=== PATIENT | male | born 1940 | race Caucasian/White ===

== ENCOUNTER → 2017-04-21 16:01 | Outpatient (CLI) | payer MEDICARE, OTHER, SELFPAY | PROVIDERS: Family Provider Family Medicine; PCP Family Medicine; Visit Provider Internal Medicine Hematology & Oncology | DX: C90.02 Multiple myeloma in relapse (principal) | CPT/HCPCS: 86850; 86900 ==

== ENCOUNTER → 2017-08-17 10:51 | Outpatient (CLI) | payer MEDICARE, OTHER, SELFPAY ==
--- NOTE | 2017-08-17 10:55 | MRI_ITS ---
STUDY: MRI LUMBAR SPINE WITHOUT CONTRAST REASON FOR EXAM: Male, 77 years old. Low back pain and right hip pain x6 years. History of multiple myeloma. TECHNIQUE: Standardized fat and water weighted pulse sequences were obtained in the sagittal and axial planes. COMPARISON: Lumbar spine radiographs 06/10/2015. FINDINGS: T11-T12: (Sagittal only). Normal T11 inferior endplate. Mild anterior wedging of T12 superior endplate without bone edema is presumably secondary to remote injury. This is unchanged when compared to plain film radiographs of 06/10/2015. Anterior degenerative vacuum phenomena. Marked loss of disc hydration. No ventral is a ventral defect. Normal central canal and bilateral intervertebral neural foramina. T12-L1: (Sagittal only). Anterior marginal spurs. Pronounced disc space narrowing. Marked loss of disc hydration. Minimal degenerative retrolisthesis of T12 on L1. Normal central canal and bilateral intervertebral neural foramina. Round T12 benign focal fatty infiltration. Normal lumbar lordosis. There is no substantial scoliosis. Normal conus medullaris that terminates at the mid L1 vertebral body level. L1-2: Prominent anterior marginal spurs. Nearly grade 1 degenerative retrolisthesis of L1 on L2. Pronounced disc space height narrowing. Normal central canal and bilateral lateral recesses. Mild asymmetric degenerative facet arthropathy. Moderate stenosis of the right intervertebral neural foramen. Normal left intervertebral neural foramen. L2-3: Anterior marginal spurs. Bridging right lateral marginal spurs. Moderately pronounced right-sided disc space height narrowing. Schmorl's node in the posterior aspect of the L2 inferior endplate. Normal L2 superior endplate. Minimal asymmetric degenerative retrolisthesis of L2 on L3. Mild central canal stenosis with an AP canal diameter of 9 mm. Right posterior ligamentum flavum hypertrophy. Mild to moderate asymmetric degenerative facet arthropathy. Normal bilateral intervertebral neural foramina. L3-4: Small anterior marginal spurs. Minimal left lateral subluxation of L3 on L4. Pronounced right-sided disc space height narrowing. Schmorl's node in the central aspect of the L3 inferior endplate. Normal L4 superior endplate. Small posterior midline cephalad disc protrusion. Mild to moderate asymmetric central canal stenosis. The AP canal diameter is 8 mm. Bilateral posterior ligamenta flava hypertrophy. Mild to moderate right degenerative facet hypertrophy. Mild left degenerative facet arthropathy. Mild stenosis of the left intervertebral neural foramen. Normal right intervertebral neural foramen. L4-5: Pronounced disc space height narrowing. Minimal right lateral subluxation of L4 on L5. Prominent left lateral marginal spurs. Modic type II degenerative vertebral marrow fatty changes underneath the vertebral endplates. Mild asymmetric central canal stenosis. The AP canal diameter is 10 mm. Left posterior ligamentum flavum pertinently. Moderate left degenerative facet hypertrophy. Mild right degenerative facet arthropathy. Moderately pronounced stenosis of the left intervertebral neural foramen with osteophytic impingement of the left L4 nerve (series 2, image 5). L5-S1: Deep and prominent Schmorl's node in the central aspect of the S1 superior endplate. Modic type II degenerative vertebral marrow fatty change underneath the L5 inferior endplate. Moderate disc space height narrowing. Small posterior midline disc protrusion. Normal central canal. Mild asymmetric degenerative facet arthropathy. Moderate stenosis of the bilateral intervertebral neural foramina. Normal visualized sacral ala. Normal visualized paraspinous soft tissue structures. MRI/Spine Lumbar (Routine) IMPRESSION: 1. No MRI evidence of lumbar extruded disc fragment. 2. Pronounced L4-L5 disc space height narrowing, minimal right lateral subluxation of L4 on L5, mild asymmetric central canal stenosis and moderately pronounced stenosis of the left intervertebral neural foramen with osteophytic impingement of the left L4 nerve. 3. Deep and prominent Schmorl's node in the central aspect of the S1 superior endplate with small posterior L5-S1 disc protrusion and moderate stenosis of the bilateral intervertebral neural foramina. 4. Pronounced L3-L4 disc space height narrowing with minimal left lateral subluxation of L3 on L4, small posterior midline cephalad disc protrusion, mild to moderate asymmetric central canal stenosis and mild stenosis of the left intervertebral neural foramen. 5. Mild central canal stenosis at L2-L3 disc level with moderately pronounced right-sided disc space height narrowing and minimal asymmetric degenerative retrolisthesis of L2 on L3. 6. Nearly grade 1 degenerative retrolisthesis of L1 on L2 with pronounced L1-L2 disc space height narrowing and moderate stenosis of the right intervertebral neural foramen. Electronically Signed: Herson Landrum MD at 13:09 EDT , Service support ,
== END ==
PROVIDERS: Family Provider Family Medicine; PCP Family Medicine; Visit Provider Anesthesiology Pain Medicine
DX: M54.9 Dorsalgia, unspecified (principal)
CPT/HCPCS: 72148

== ENCOUNTER 2017-10-06 08:00 | Outpatient (RCR) | payer MEDICARE, OTHER, SELFPAY ==
--- NOTE | 2017-09-03 11:00 | HP.PTEVAL_ITS ---
Patient's Visit Information JAIME Rosi AGGARWAL is a 77 year old M referred to Physical Therapy by Harsh Terry with a diagnosis of LBP. Date of Evaluation: 09/03/17 Physical Therapist: Bryce Daniels PT, - Visit Plan Frequency: 2-3x /Week Duration: 4-6 Weeks Plan: postural edu, core stab ex's, LE strengthining, nustep, and HEP - Subjective Subjective: Pt reports he has had a chronic Hx of LBP. Pt reports he has been getting back injections from Dr. Maki over the years which really helped up until the past 6 months. Pt reports the injections are not helping anymore and he is in a lot of pain. Pt notes he does have a Hx of a fall that also really hurt his back. Pt notes he had an MRI 2 weeks ago, which revealed deg changes throughout LB. Prolonged ambulation and standing increases his pain. Sleeping and sitting helps to decrease his pain. No sleep diff at this time. 1/10 at rest , 7/10 at worst (with walking a lot) - Pain LBP Pain Intensity (Out of 10): 1 Pain Intensity Range: 7 - Objective Neuro: B LE sensation is WNL to light touch. MMT: B LE's are grossly 4+/5 throughout. ROM: Pt is moderately limited in all planes. Gait: Pt is able to ambulate greater than 1000 ft without limitation - Goals Goal 1:: Decrease LBP x 50% to aid with walking Goal Time Frame: 4-6 Weeks Goal 2:: Increase B LE strength x 1 grade to aid with stair negotiation Goal Time Frame: 4-6 Weeks Goal 3:: I with HEP Goal Time Frame: 4-6 Weeks - Rehabilitation Potential Physical Therapy Diagnosis: Pt has LBP, LE weakness, and limited ROM in L/S secondary to degenerative changes in LB Rehabilitation Potential: Good - Anticipated Interventions Patient/Client Instruction: Educate patient on: Condition, Plan of Care For the Purpose of:: To improve self management Therapeutic Exercise to Include: Strength training, Endurance training, Body mechanics, Postural training, Active ROM, Dynamic Lumbar Stabilization For the Purpose of:: To decrease pain, To improve muscle performance and motor function, To increase tolerance to activity/condition/position, To improve performance and independence with ADL's Cryotherapy (ice pack, ice massage): Yes Thermo therapy (hot pack): Yes For the Purpose of:: To decrease pain Thank you for the opportunity to evaluate your patient. For Medicare and Medicare HMO plans, please review the plan of care and approve it. It will need to be FAXED BACK to us at [phone] for Medicare purposes. Please let me know if there are questions or concerns regarding this plan of care. Physician Signature: Date:
--- NOTE | 2017-10-06 08:50 | HP.PTDCSUM ---
HP - PT D/C Summary It has been my pleasure to treat ADDISON AGGARWAL under orders from Harsh Terry, for the diagnosis of LBP for a total of 11 visit(s). Discharge Date: Please see the following information for a summary of their discharge status. - Subjective Subjective: Pt reports he felt good after last Rx, but sore for the past 2 days - Pain LBP Pain Intensity (Out of 10): 7 - Overall Improvement % Improvement: 30 - Objective Objective/Function: Pt entered the clinic with 7/10 LBP, decreased to 3/10 with HEP. B LE strength now 5/5. Pt is I with HEP. Rx goals achieved with exception to decreasing LBP x 50% - Goals Goal 1:: Decrease LBP x 50% to aid with walking Goal Progress: Progressing Goal 2:: Increase B LE strength x 1 grade to aid with stair negotiation Goal Progress: Goal Met Goal 3:: I with HEP Goal Progress: Goal Met - Plan Plan: Discharge - D/C Information If there are questions or concerns regarding this patient's physical therapy, please feel free to call me at [phone]. Thank you for the referral of this patient. Sincerely, Bryce Daniels, PT,
== END 2017-10-06 10:34 | disposition home or self-care (01) ==
LOC: PT 08:00
PROVIDERS: Family Provider Family Medicine; PCP Family Medicine; Visit Provider Internal Medicine Hematology & Oncology
DX: C90.02 Multiple myeloma in relapse (principal); M54.5 Low back pain; G89.29 Other chronic pain
CPT/HCPCS: 97110; 97161; 97530

== ENCOUNTER → 2017-10-26 13:46 | Outpatient (CLI) | payer MEDICARE, OTHER, SELFPAY | PROVIDERS: Family Provider Family Medicine; PCP Family Medicine; Visit Provider Orthopaedic Surgery | DX: M54.5 Low back pain (principal) | CPT/HCPCS: 72110 ==

== ENCOUNTER → 2018-01-27 10:27 | Outpatient (CLI) | payer MEDICARE, OTHER, SELFPAY ==
[2016-07-15 08:19] VITALS: BMI 31.8
--- NOTE | 2018-01-27 10:31 | RAD_ITS ---
STUDY: X-RAY - LEFT KNEE REASON FOR EXAM: Pain. TECHNIQUE: 2 view(s) of the knee. COMPARISON: None. FINDINGS: Normal visualized distal femur. Normal visualized proximal tibia and fibula. Normal proximal tibiofibular articulation. There is a surface osteophyte of the medial femoral condyle and mild joint space narrowing of the medial femorotibial compartment. There are marginal osteophytes and severe joint space narrowing of the lateral femorotibial compartment. There are marginal osteophytes and joint space narrowing of the patellofemoral articulation. There is a small joint effusion. There is vascular calcification. RAD/Knee 1 or 2 Views IMPRESSION: Tricompartmental arthrosis. Small joint effusion. Electronically Signed: Freeman Rogel MD at 14:50 EST Tel , Service support ,
--- OUTSIDE RECORDS SUMMARY | 2018-03-24 12:32 | XMS RPT_ITS ---
:1940 Author Organization OHIP Care Team Providers Name Role Phone ELLE LEGER Referring Unavailable MASCI, HARSH Aranda Referring Unavailable ELDERBROELLE WILL Referring Unavailable MASCI, HARSH Aranda Referring Unavailable MASCI, HARSH Aranda Attending Unavailable MASCI, HARSH Aranda Referring Unavailable MASCI, HARSH Aranda Referring Unavailable ELDERBROELLE WILL Referring Unavailable MASCI, HARSH Aranda Referring Unavailable MASCI, HARSH Aranda Referring Unavailable MASCI, HARSH Aranda Referring Unavailable ELDERBROELLE WILL Referring Unavailable MASCI, HARSH Aranda Referring Unavailable MASCI, HARSH Aranda Referring Unavailable MASCI, HARSH Aranda Referring Unavailable MASCI, HARSH Aranda Referring Unavailable MASCI, HARSH Aranda Referring Unavailable ELDERBROCKELLE Referring Unavailable MASCI, HARSH Aranda Referring Unavailable MASCI, HARSH Aranda Attending Unavailable MASCI, HARSH Aranda Referring Unavailable MASCI, HARSH Aranda Referring Unavailable MASCI, HARSH Aranda Referring Unavailable MASCI, HARSH Aranda Referring Unavailable ELDERBROELLE WILL Referring Unavailable MASCI, HARSH Aranda Referring Unavailable MASCI, HARSH Aranda Referring Unavailable MASCI, HARSH A Referring Unavailable MASCI, HARSH A Referring Unavailable MASCI, HARSH A Referring Unavailable ELDERBROCK, ELLE Gold Referring Unavailable MASCI, HARSH A Referring Unavailable MASCI, HARSH A Referring Unavailable MASCI, HARSH A Referring Unavailable MASCI, HARSH A Referring Unavailable MASCI, HARSH A Attending Unavailable MASCI, HARSH A Referring Unavailable MASCI, HARSH A Referring Unavailable MASCI, HARSH A Referring Unavailable ELDERBROCK, ELLE Gold Referring Unavailable MASCI, HARSH A Referring Unavailable MASCI, HARSH A Referring Unavailable MASCI, HARSH A Attending Unavailable MASCI, HARSH A Referring Unavailable MASCI, HARSH A Referring Unavailable MASCI, HARSH A Referring Unavailable MASCI, HARSH A Referring Unavailable MASCI, HARSH A Referring Unavailable MASCI, HARSH Aranda Attending Unavailable MASCI, HARSH A Referring Unavailable MASCI, HARSH A Referring Unavailable MASCI, HARSH A Referring Unavailable MASCI, HARSH A Referring Unavailable MASCI, HARSH A Referring Unavailable MASCI, HARSH Aranda Attending Unavailable MASCI, HARSH Aranda Referring Unavailable ELDERBROCK, ELLE Gold Referring Unavailable MASCI, HARSH Aranda Referring Unavailable DEMAR, MARY Referring Unavailable MASCI, HARSH A Referring Unavailable MASCI, HARSH A Referring Unavailable ELDERBROCK, ELLE Gold Referring Unavailable MASCI, HARSH Rosi Referring Unavailable ELDERBROCK, ELLE Gold Referring Unavailable EMMA, CORNELL (PHILIP) Attending Unavailable ELDERBROCK, ELLE Gold Referring Unavailable MASCI, HARSH A Referring Unavailable MASCI, HARSH A Attending Unavailable MASCI, HARSH A Referring Unavailable MASCI, HARSH A Referring Unavailable MASCI, HARSH Rosi Referring Unavailable ELDERBROCK, ELLE Gold Referring Unavailable MASCI, HARSH Aranda Referring Unavailable MASCI, HARSH Aranda Attending Unavailable MASCI, HARSH Aranda Referring Unavailable ELDERBROCK, ELLE Gold Referring Unavailable MASCI, HARSH A Referring Unavailable ELDERBROCK, ELLE Gold Referring Unavailable MASCI, HARSH A Referring Unavailable MASCI, HARSH Rosi Attending Unavailable MASCI, HARSH Rosi Referring Unavailable MASCI, HARSH Rosi Referring Unavailable ELDERBROCK, ELLE Gold Referring Unavailable MASCI, HARSH Aranda Referring Unavailable MASCI, HARSH Aranda Attending Unavailable MASCI, HARSH Aranda Referring Unavailable MASCI, HARSH Aranda Referring Unavailable Demar, Mary Attending Unavailable Elderbrock, Elle Primary Care Unavailable Demar, Mary Referring Unavailable Basali, Fay Attending Unavailable Basali, Fay Referring Unavailable Elderbrock, Elle Primary Care Unavailable Masci, Harsh Attending Unavailable Masci, Harsh Referring Unavailable Elderbrock, Elle Primary Care Unavailable MendozaChante Attending Unavailable Elderbrock, Elle Referring Unavailable Africa, Elle Primary Care Unavailable Chante Mendoza Attending Unavailable Chante Mendoza Referring Unavailable Africa, Elle Primary Care Unavailable Fay Maki Attending Unavailable Fay Maki Referring Unavailable Elderedouard, Elle Primary Care Unavailable PROBLEMS PROBLEMS DATE TYPE CONDITION / CODE ATTENDING STATUS SOURCE 11/27/2017 Active Encounter for NA Active [facility] immunization / [facility] Z23(ICD-10) [facility] Repository 10/26/2017 Unknown M54.5 - Low back Chante Mendoza Active [facility] pain / [facility]54.5(ICD-10) [facility] 10/06/2017 Unknown C90.02 - Multiple Harsh Terry Active [facility] myeloma in relapse / [facility] C90.02(ICD-10) [facility] Repository 07/17/2009 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 Active [facility] use of [facility] anticoagulants / [facility] Z79.01(ICD-10) Repository 08/17/2017 Unknown M54.9 - DorsalgiaGlynn Ayman Active [facility] unspecified / [facility] M54.9(ICD-10) Hospital Repository 07/17/2009 Active Unspecified atrial NA Active [facility] fibrillation / [facility] I48.91(ICD-10) [facility] Repository 07/17/2009 Active Pure NA Active [facility] hypercholesterolemia [facility] , unspecified / [facility] E78.00(ICD-10) Repository 04/08/2017 Active Unknown / NA Active [facility] UNK(Unknown) [facility] Repository 10/30/2014 Active Multiple myeloma in NA Active [facility] relapse / [facility] C90.02(ICD-10) [facility] Repository PROCEDURES PROCEDURES No Procedure Records FoundRESULTS RESULTS CNOVSP Observed: 02/10/2018 Status: COMPLETED Source: [place] 8:50 AM [facility] REPOSITORY Visit (SP) Office ([facility]) GALE VALDEZ ([id number]) [address] [facility] Date Time Provider Department 02/10/18 8:50 AM HARSH TERRY During your visit today, we recorded the following information about you: Temperature Pulse Blood pressure Weight 98.7 degrees 74/minute 122/75 103.9 kg Harsh Rosi DO [place] 02/10/2018 9:07 AM Signed Diagnosis: 1) [place] light chain only multiple myeloma. HPI: The patient is a 77 yo male who was evaluated for pain in the right shoulder in April of 2011. Initially he had pain across the top of the shoulder. The onset was following lifting some luggage when he was on a cruise. He underwent an injection which didn't help the pain. He also had plain films which didn't show any significant bony pathology. He was referred to an orthopedic surgeon who ordered an MRI of the shoulder on 06/29/11. The study revealed multiple metastatic deposits throughout the shoulder girdle, involving the visualized humerus, scapula and clavicle. There was a large expansile lesion within the scapula extending into the periscapular soft tissues along the deep and superficial surface there was also a large expansile lesion of the distal clavicle. Work up has revealed kappa light chain multiple myeloma. Previous therapy: 1) VMP x3 cycles. Therapy was held due to worsening fatigue and neuropathy. He also had significant difficulty with constipation throughout his treatment course. Laboratory analysis revealed marked reduction in serum kappa light chain. 2) Velcade/dex (day 1, 8 and 15 every 28 days). Began 11/06/2014. Revlimid 15 mg days 1-21 added 06/2015. PD 04/2017. Current therapy: 1) Daratumumab/Pomalyst/dex. Presents for ongoing oncologic management. Interim history: He continues to tolerate treatment very well with no symptomatic or noticeable side effect. Energy level is doing well. He had symptoms of URI over gi including nasal congestion and rhinorrhea. The symptoms have subsided. He also had some diarrhea associated with those symptoms but that too has resolved. He gets some relief of the back pain from his TENS unit but he had epidural injections done last week and he said those of helped significantly. He's been more mobile and getting more done the last week. Peripheral neuropathy is stable. Appetite is normal. PMH, medications and allergies as below personally reviewed by me today. Any changes documented in appropriate section. ROS: Constitutional: Denies episodes of fever and night sweats. Neuro: Denies METZGER, vertigo, dizziness and imbalance. HEENT: No recent change in voice, vision or hearing. Resp: See above. CVS: Denies exertional chest pain, PND, orthopnea and LE edema. GI: Denies dysgeusia. Denies symptoms of stomatitis. Denies dysphagia and odynophagia. Denies reflux, n/v, change in bowel habits and abdominal pain. : Denies dysuria or gross hematuria. No symptoms of bladder outlet obstruction. Endo: Denies hot flashes. Denies polyuria and polydipsia. Denies heat and cold intolerance. Musculoskeletal: See above. Derm: Denies rash. Denies jaundice and diffuse pruritis. Heme: Denies unusual bleeding and unexplained bruising. Psych: Normal mood. PHYSICAL EXAM: Vitals: Blood pressure 122/75, pulse 74, temperature 37.1 ?C (98.7 ?F), temperature source Oral, weight 103.9 kg (229 lb). Well-appearing and in no acute distress. EYES: Sclerae are anicteric bilaterally. NECK: Supple. LYMPHATIC: There is no palpable cervical, supraclavicular adenopathy. RESPIRATORY: Normal air entry. CVS: Regular rhythm. ABDOMEN: The abdomen is nondistended. There is no organomegaly. No tenderness. Extremities: Trace edema both ankles/distal lower extremities-stable. SKIN: No rash. 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 No focal motor weakness. LABS: ASSESSMENT/PLAN: 1) Multiple myeloma. Light chain only disease. Relapsed with increase in serum kappa light chain and very small amount kappa in 24 hour urine. -Tolerating Pomalyst and daratumumab very well. No untoward side effect. -[place] light chain fluctuates, but overall stable and ratio to lambda potentially trending lower. -The measurable monoclonal protein on serum electrophoresis is most likely the daratumumab. It appeared after he started treatment. Not clear however if this is contributing to the increasing kappa light chain. Therefore discussed with him obtaining a PET scan for more thorough evaluation. He does have pain that has been getting worse, particularly the low back pain. He is agreeable. Plan: -Continue daratumumab monthly. -Continue Pomalyst. -PO dexamethasone 20 mg on days 8 and 15 of each cycle. He will get IV dexamethasone on day 1 monthly when here for Darzalex. -Whole body PET scan. -Continue Zometa every 3 months. -Monthly OV with myeloma lab assessment. 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 Plan: -Continue under CPM. Harsh Terry DO Referring Provider: HARSH TERRY [[id number]] Allergies As of Date: 02/10/2018 Noted Allergy Reaction bandaid [Other] 11/20/2004 NEOSPORIN ([id number]*11/20/2004 14 - Other: See Comments Comments: skin blistering Date Reviewed: 02/10/2018 Reviewed by: Delmis Cassidy - Fully Assessed Reason for Visit: Established Patient [175] Primary Visit Diagnosis:Multiple myeloma in relapse (HCC) [C90.02] Other Visit Diagnoses:Chronic midline low back pain, with sciatica presence unspecified [M54.5, G89.29] Acute pain of left knee [M25.562] Multiple myeloma not having achieved remission (HCC) [C90.00] Order(s):DC PET/CT WHOLE BODY [[id number]] Order #: [id number] FUTURE Follow-up and Disposition History Recorded Prescriptions as of 02/10/2018 Sig: SODIUM CHLORIDE 0.9% FLUSH Start IV as needed for labs o* ACETAMINOPHEN 500 MG TABLET Take 1,000 mg by mouth as nee* AMIODARONE 200 MG TABLET TAKE 1 TABLET EVERY DAY ATORVASTATIN 10 MG TABLET TAKE 1 TABLET EVERY DAY CYCLOBENZAPRINE 10 MG TABLET Take 0.5-1 tablets by mouth t* DEXAMETHASONE 4 MG TABLET Take 5 tablets at once on day* STOOL SOFTENER ORAL Take 1 tablet by mouth once d* LEVOTHYROXINE 50 MCG TABLET Take 1 tablet by mouth once d* POLYETHYLENE GLYCOL 3350 17 G* Take 17 g by mouth once daily* POMALYST 2 MG CAPSULE TAKE 1 CAPSULE BY MOUTH EVERY* * TRAMADOL 50 MG TABLET Take 1-2 tablets every 6 hour* WARFARIN 3 MG TABLET Hold Fri/Sat, resume normal d* Problem List As Of Date 02/10/2018 Noted Resolved Atrial Fibrillation [I48.91] INVALID FOR* More... Encounter for Long-Term (Current) Use of Antico*INVALID FOR* Pure Hypercholesterolemia [E78.00] INVALID FOR* KNEE PAIN - RIGHT [M25.569] INVALID FOR*08/18/2016 GENERAL OSTEOARTHROSIS [M15.9] INVALID FOR* BENIGN NEOPLASM LG BOWEL [D12.6] DIVERTICULOSIS OF COLON W/O BLEED [K57.30] Internal hemorrhoids without mention of complic* 12/16/2011 KNEE JOINT REPLACEMENT STATUS [Z96.659] INVALID FOR* Sleep Apnea [G47.30] INVALID FOR* More... Fracture of lateral malleolus [S82.63XA] INVALID FOR*08/18/2016 More... 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 Vitamin D deficiency [E55.9] INVALID FOR* Esophagitis, unspecified [K20.9] INVALID FOR* Irritated//Inflamed Seborrheic Keratosis [L82.0]INVALID FOR*08/18/2016 Viral wart, unspecified [B07.9] INVALID FOR*08/18/2016 Neoplasm of Uncertain Behavior of skin: R/O Dys*INVALID FOR*08/18/2016 Atypical nevus of face [D22.30] INVALID FOR*08/18/2016 Sebaceous hyperplasia [L73.8] INVALID FOR*08/18/2016 Actinic skin damage [L57.8] INVALID FOR*08/18/2016 Solar lentigo [L81.4] INVALID FOR*08/18/2016 Other seborrheic keratosis [L82.1] INVALID FOR*08/18/2016 Multiple myeloma in relapse (HCC) [C90.02] INVALID FOR* Chronic low back pain [M54.5, G89.29] INVALID FOR* Hypothyroidism, acquired [E03.9] INVALID FOR* Encounter Status:Closed by HARSH TERRY DO on 02/10/18 PROTEIN ELEC,UR RAND Collected: 02/10/2018 Status: F Source: [place] 8:32 AM [facility] REPOSITORY TYPE CODE TESTS RESULT OUT OF REFERENCE UNITS RANGE LAB UTPR 0-20 mg/dL Protein Urine Random 9 LAB UALB % Albumin 29.2 LAB UA1G >0 % Alpha 1 Globulin 6.2 LAB UA2G % Alpha 2 Globulin 23.6 LAB UBEG % Beta Globulin 19.0 LAB UGAG % Gamma Globulin 22.1 LAB UPEINT Interpretation SEE COMMENT Result Comment: An M protein is identified on protein electrophoresis. See separate immunofixation report for characterization of the M protein. LAB UPESTF Staff Reviewed by Review Anatoliy York M.D. ([id number]) Performed By: #### JACEY LENNONA #### [facility] [employer] [address] [address] MONOCLONAL PROT UR Collected: 02/10/2018 Status: F Source: [place] 8:32 AM [facility] REPOSITORY TYPE CODE TESTS RESULT OUT OF RANGE REFERENCE UNITS LAB UMPA No M protein is UMPA Result Abnormal identified. M protein Alert is present. LAB UINTP UMPA Interpretation SEE COMMENT Result Comment: An atypical restricted band is present in the kappa region. The presence of free kappa light chains in the urine is consistent with a kappa-containing monoclonal gammopathy. LAB UMPSTF UMPA Reviewed by Staff Review Anatoliy York M.D. ([id number]) Performed By: #### JACEY LENNONA #### [facility] [employer] [address], [place] [address] PROGRESS Observed: 02/10/2018 Status: COMPLETED Source: [place] 8:22 AM [facility] REPOSITORY HNO ID: [id number] Author: Harsh Terry Service: (none) Author Type: Physician Type: Progress Notes Filed: 02/10/2018 9:07 AM Note Text: Diagnosis: 1) [place] light chain only multiple myeloma. HPI: The patient is a 77 yo male who was evaluated for pain in the right shoulder in April of 2011. Initially he had pain across the top of the shoulder. The onset was following lifting some luggage when he was on a cruise. He underwent an injection which didn't help the pain. He also had plain films which didn't show any significant bony pathology. He was referred to an orthopedic surgeon who ordered an MRI of the shoulder on 06/29/11. The study revealed multiple metastatic deposits throughout the shoulder girdle, involving the visualized humerus, scapula and clavicle. There was a large expansile lesion within the scapula extending into the periscapular soft tissues along the deep and superficial surface there was also a large expansile lesion of the distal clavicle. Work up has revealed kappa light chain multiple myeloma. Previous therapy: 1) VMP x3 cycles. Therapy was held due to worsening fatigue and neuropathy. He also had significant difficulty with constipation throughout his treatment course. Laboratory analysis revealed marked reduction in serum kappa light chain. 2) Velcade/dex (day 1, 8 and 15 every 28 days). Began 11/06/2014. Revlimid 15 mg days 1-21 added 06/2015. PD 04/2017. Current therapy: 1) Daratumumab/Pomalyst/dex. Presents for ongoing oncologic management. Interim history: He continues to tolerate treatment very well with no symptomatic or noticeable side effect. Energy level is doing well. He had symptoms of URI over [place] including nasal congestion and rhinorrhea. The symptoms have subsided. He also had some diarrhea associated with those symptoms but that too has resolved. He gets some relief of the back pain from his TENS unit but he had epidural injections done last week and he said those of helped significantly. He's been more mobile and getting more done the last week. Peripheral neuropathy is stable. Appetite is normal. PMH, medications and allergies as below personally reviewed by me today. Any changes documented in appropriate section. ROS: Constitutional: Denies episodes of fever and night sweats. Neuro: Denies METZGER, vertigo, dizziness and imbalance. HEENT: No recent change in voice, vision or hearing. Resp: See above. CVS: Denies exertional chest pain, PND, orthopnea and LE edema. GI: Denies dysgeusia. Denies symptoms of stomatitis. Denies dysphagia and odynophagia. Denies reflux, n/v, change in bowel habits and abdominal pain. : Denies dysuria or gross hematuria. No symptoms of bladder outlet obstruction. Endo: Denies hot flashes. Denies polyuria and polydipsia. Denies heat and cold intolerance. Musculoskeletal: See above. Derm: Denies rash. Denies jaundice and diffuse pruritis. Heme: Denies unusual bleeding and unexplained bruising. Psych: Normal mood. PHYSICAL EXAM: Vitals: Blood pressure 122/75, pulse 74, temperature 37.1 ?C (98.7 ?F), temperature source Oral, weight 103.9 kg (229 lb). Well-appearing and in no acute distress. EYES: Sclerae are anicteric bilaterally. NECK: Supple. LYMPHATIC: There is no palpable cervical, supraclavicular adenopathy. RESPIRATORY: Normal air entry. CVS: Regular rhythm. ABDOMEN: The abdomen is nondistended. There is no organomegaly. No tenderness. Extremities: Trace edema both ankles/distal lower extremities-stable. SKIN: No rash. 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 No focal motor weakness. LABS: ASSESSMENT/PLAN: 1) Multiple myeloma. Light chain only disease. Relapsed with increase in serum kappa light chain and very small amount kappa in 24 hour urine. -Tolerating Pomalyst and daratumumab very well. No untoward side effect. -[place] light chain fluctuates, but overall stable and ratio to lambda potentially trending lower. -The measurable monoclonal protein on serum electrophoresis is most likely the daratumumab. It appeared after he started treatment. Not clear however if this is contributing to the increasing kappa light chain. Therefore discussed with him obtaining a PET scan for more thorough evaluation. He does have pain that has been getting worse, particularly the low back pain. He is agreeable. Plan: -Continue daratumumab monthly. -Continue Pomalyst. -PO dexamethasone 20 mg on days 8 and 15 of each cycle. He will get IV dexamethasone on day 1 monthly when here for Darzalex. -Whole body PET scan. -Continue Zometa every 3 months. -Monthly OV with myeloma lab assessment. 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 Plan: -Continue under CPM. Harsh Terry, DO B2 MICROGLOBULIN Collected: 02/10/2018 Status: F Source: [place] 8:[address] [facility] REPOSITORY TYPE CODE TESTS RESULT OUT OF REFERENCE UNITS RANGE LAB B2M 0.8-2.2 mg/L B2 Microglobulin High 2.6 Performed By: #### IMANI Bhakta SERMPA #### [facility] [address], [place] [address] PROTEIN ELECTROPHOR. Collected: 02/10/2018 Status: F Source: [place] 8:21 AM [facility] REPOSITORY TYPE CODE TESTS RESULT OUT OF REFERENCE UNITS RANGE LAB TPSPE 6.0-8.4 g/dL Total Protein, Low SPE 5.6 LAB ALBE 3.37-4.23 gm/dL Albumin 3.47 LAB A1GL 0.18-0.31 gm/dL Alpha 1 Globulin 0.25 LAB A2GL 0.52-0.97 gm/dL Alpha 2 Globulin 0.71 LAB BEGL 0.84-1.36 gm/dL Beta Globulin Low 0.81 LAB GAGL 0.70-1.44 gm/dL Gamma Globulin Low 0.36 LAB SPEINT Interpretation SEE COMMENT Result Comment: No definitive M protein is identified on protein electrophoresis. LAB LOC M Protein N/A Location LAB GPERDL 0.00 gm/dL M Rich 0.00 Concentratn LAB SPESTF SPE Staff Review Reviewed by Anatoliy York M.D. ([id number]) Performed By: #### IMANI Bhakta SERSHIREEN #### [facility] [address], [place] [address] MONCLNL PROTEIN, SER Collected: 02/10/2018 Status: F Source: [place] 8:[address] [facility] REPOSITORY TYPE CODE TESTS RESULT OUT OF REFERENCE UNITS RANGE LAB MPAIGG 717-1411 mg/dL Low MPA Serum 317 IgG LAB MPAIGA 78-391 mg/dL Low MPA Serum 8 IgA LAB MPAIGM 53-334 mg/dL Low MPA Serum 24 IgM LAB FKAPS 3.30-19.40 mg/L High [place], 90.6 Free, Serum Result Comment: Rarely, increased serum free light chains values may not be detected due to antigen excess phenomenon. Results should always be correlated with other laboratory results and clinical findings. LAB FLAMS 5.7-26.3 mg/L Lambda, Free, 9.9 Serum Result Comment: Rarely, increased serum free light chains values may not be detected due to antigen excess phenomenon. Results should always be correlated with other laboratory results and clinical findings. LAB KLRAT 0.26-1.65 High K/L Ratio, Serum 9.15 LAB MPAR No M protein is identified. MPA Result A Abnormal poorly defined Alert region of restricted mobility is present that may represent an M protein. LAB INTP MPA SEE Interpretation COMMENT Result Comment: Poorly defined region of restricted mobility in IgG and kappa lanes. Pattern is less well defined or fainter than typically seen in monoclonal gammopathy. This could represent either an atypical presentation of polyclonal immunoglobulins or the presence of a low level IgG kappa monoclonal gammopathy. If clinically indicated, urine monoclonal protein analysis and serum free light chain measurements are recommended to evaluate further for monoclonal gammopathy. Clinical correlation is necessary. LAB MPASTF Staff Reviewed by Review Anatoliy York M.D. ([id number]) Performed By: #### Yony, IMANI, SERMPRosi #### [facility] [address] [id number] COMP METABOLIC PANEL Collected: 02/10/2018 Status: F Source: [place] 8:18 AM [facility] REPOSITORY TYPE CODE TESTS RESULT OUT OF REFERENCE UNITS RANGE LAB TP 6.3-8.0 g/dL Protein, Low Total 5.6 LAB ALB 3.9-4.9 g/dL Albumin Low 3.8 LAB CA 8.5-10.2 mg/dL Calcium, Total 9.4 LAB TBIL 0.2-1.3 mg/dL Bilirubin, Total 0.5 LAB ALKP 38-113 U/L Alkaline Phosphatase 58 LAB AST 14-40 U/L AST 16 LAB GLU 74-99 mg/dL Glucose High 106 LAB BUN 9-24 mg/dL BUN 18 LAB CRET 0.73-1.22 mg/dL Creatinine 0.95 LAB NA 136-144 mmol/L Sodium 141 LAB K 3.7-5.1 mmol/L Potassium 4.4 LAB CL 97-105 mmol/L Chloride High 109 LAB CO2 22-30 mmol/L CO2 25 LAB AGAP 9-18 mmol/L Anion Gap Low 7 LAB ALT 10-54 U/L ALT 20 LAB GFRAA eGFR- >60 Amer. LAB GFRNAA . eGFR-All Other Races >60 Result Comment: eGFR (Estimated GFR) Units of measure: mL/min/1.73 meters squared eGFR is derived from the reexpressed MDRD Study equation using the following parameters: serum creatinine, age, gender and race. The creatinine assay has been calibrated to be traceable to [facility]IL. An eGFR <60 mL/min/1.73m2 for >3 months is consistent with chronic kidney disease. Refer to KDOQI guidelines for clinical interpretation. In patients with unstable renal function, e.g. those with acute kidney injury, the eGFR may not accurately reflect actual GFR. RENATO ABS GR + CBC Collected: 02/10/2018 Status: F Source: [place] 8:17 AM [facility] REPOSITORY TYPE CODE TESTS RESULT OUT OF REFERENCE UNITS RANGE LAB WWBC 3.70-11.00 k/uL Renato WBC 7.58 LAB WRBC 4.20-6.00 m/uL Low [place] RBC 3.73 LAB WHGB 13.0-17.0 g/dL [place] Hemoglobin 13.6 LAB WHCT 39.0-51.0 % Renato Hematocrit 39.6 LAB WMCV 80.0-100.0 fL [place] High MCV 106.2 LAB WMCH 26.0-34.0 pg Renato High MCH 36.5 LAB WMCHC 30.5-36.0 g/dL [place] MCHC 34.3 LAB WRDW 11.5-15.0 % Renato High RDW 15.1 LAB WPLT 150-400 k/uL Low Renato Platelet Cnt 144 LAB WMPV 9.0-12.7 fL [place] MPV 11.7 Result Comment: Test performed at: [facility], [address] [place] [address] Rd[address] [place] [address]. LAB ABGRAN 1.45-7.50 k/uL Absol Gran 3.86 Count PROGRESS Observed: 01/28/2018 Status: COMPLETED Source: [place] 2:59 PM [facility] REPOSITORY HNO ID: [id number] Author: Elle Leger Service: (none) Author Type: Physician Type: Progress Notes Filed: 01/28/2018 3:16 PM Note Text: I agree with the advice given; stay same and recheck in 4 weeks Elle Leger MD PROGRESS Observed: 01/28/2018 Status: COMPLETED Source: [place] 9:50 AM [facility] REPOSITORY HNO ID: [id number] Author: Sailaja Razo RN Service: (none) Author Type: (none) Type: Progress Notes Filed: 01/28/2018 9:51 AM Note Text: patient had inr completed at [facility] patients inr is 2.3 (patients inr range is 2.0-3.0) patient is currently taking 6mg Tues,Fri and 3mg all other days patients last dose change was on 12/10/17 due to a high level of 4.4 (dose at that time was 6mg Tues,Fri,Sun and 3mg all other days) patient has had no changes in medication and no missed doses and no change in diet Advised patient to continue on the same dose(s) and that they would only be contacted regarding dosage and follow up instructions after review with provider, if a change is needed. Written instructions given and patient verbalized understanding. Presently scheduled in 4 weeks (02/25/18) for follow up INR. KNEE 1 OR 2 VIEWS Observed: 01/27/2018 Status: F Source: [place] 10:31 AM [facility] Imaging Services [address] [place] [id number] Knee 1 or 2 Views MR#: [id number] Acct: [id number] Name: GALE VALDEZ Rep #: [id number] : 1940 M 77 From: Freeman Rogel MD PCP: Elle Leger MD Status: REG CLI Study: Knee 1 or 2 Views Date of Exam: 01/27/18 Exam# [id number] Ordering Dr: Fay Maki MD STUDY: X-RAY - LEFT KNEE REASON FOR EXAM: Pain. TECHNIQUE: 2 view(s) of the knee. COMPARISON: None. FINDINGS: Normal visualized distal femur. Normal visualized proximal tibia and fibula. Normal proximal tibiofibular articulation. There is a surface osteophyte of the medial femoral condyle and mild joint space narrowing of the medial femorotibial compartment. There are marginal osteophytes and severe joint space narrowing of the lateral femorotibial compartment. There are marginal osteophytes and joint space narrowing of the patellofemoral articulation. There is a small joint effusion. There is vascular calcification. RAD/Knee 1 or 2 Views IMPRESSION: Tricompartmental arthrosis. Small joint effusion. Electronically Signed: Freeman Rogel MD at 14:50 EST Tel , Service support , CC: Fay Maki MD; Elle Leger MD Gut Sorter: Signed PROGRESS Observed: 01/17/2018 Status: COMPLETED Source: [place] 8:33 AM [facility] REPOSITORY HNO ID: [id number] Author: Priscila Squires (Sw) Service: (none) Author Type: Linux Kernel Developer Type: Progress Notes Filed: 01/17/2018 8:35 AM Note Text: Social Work Problem Referral Note INFORMATION/REFERRAL : Gale Valdez 77 year old male was referred by to [facility] Social Work for the following reason(s): financial assistance - meals, parking, etc. PERSONS INTERVIEWED: patient INTERVENTION: Phone Contact Affect/Mood: The patient is noted as appropriate IDENTIFIED PROBLEMS/NEEDS: Financial Intervention/Referral to be provided:Arrangements made for continuity of care IMPRESSION/PLAN: LIANG received fax from [facility] to remind to renew stevo. LIANG called patient to ask if he is still taking medication and he states he is and is in need of stevo again. LIANG completed form and had doctor review/sign then faxed back to [facility]. Patient denies other needs at this time. F/U APPOINTMENT: BEAR Baldwin Observed: 01/17/2018 Status: COMPLETED Source: [place] 12:00 AM [facility] REPOSITORY Social Work ([place]) GALE VALDEZ ([id number]) [address] [facility] Date Time Provider Department 01/17/18 PRISCILA SQUIRES (LIANG) [place] During your visit today, we recorded the following information about you: BEAR Monteiro 01/17/2018 8:35 AM Signed Social Work Problem Referral Note INFORMATION/REFERRAL : Gale Valdez 77 year old male [facility] for the following reason(s): financial assistance - meals, parking, etc. PERSONS INTERVIEWED: patient INTERVENTION: Phone Contact Affect/Mood: The patient is noted as appropriate IDENTIFIED PROBLEMS/NEEDS: Financial Intervention/Referral to be provided:Arrangements made for continuity of care IMPRESSION/PLAN: SW received fax from [facility] to remind to renew stevo. LIANG called patient to ask if he is still taking medication and he states he is and is in need of stevo again. SW completed form and had doctor review/sign then faxed back to [facility]. Patient denies other needs at this time. F/U APPOINTMENT: PRN BEAR Monteiro Allergies As of Date: 01/17/2018 Noted Allergy Reaction bandaid [Other] 11/20/2004 NEOSPORIN ([id number]*11/20/2004 14 - Other: See Comments Comments: skin blistering Date Reviewed: 01/14/2018 Reviewed by: Lois Hook (Rn) LUDA Lauren - Fully Assessed Reason for Visit: Social Work Services [507] Prescriptions as of 01/17/2018 Sig: DEXAMETHASONE 4 MG TABLET Take 5 tablets at once on day* POMALYST 2 MG CAPSULE TAKE 1 CAPSULE BY MOUTH EVERY* WARFARIN 3 MG TABLET Hold Fri/Wed, resume normal d* CYCLOBENZAPRINE 10 MG TABLET Take 0.5-1 tablets by mouth t* LEVOTHYROXINE 50 MCG TABLET Take 1 tablet by mouth once d* AMIODARONE 200 MG TABLET TAKE 1 TABLET EVERY DAY ATORVASTATIN 10 MG TABLET TAKE 1 TABLET EVERY DAY POLYETHYLENE GLYCOL 3350 17 G* Take 17 g by mouth once daily* ACETAMINOPHEN 500 MG TABLET Take 1,000 mg by mouth as nee* STOOL SOFTENER ORAL Take 1 tablet by mouth once d* SODIUM CHLORIDE 0.9% FLUSH Start IV as needed for labs o* * TRAMADOL 50 MG TABLET Take 1-2 tablets every 6 hour* Problem List As Of Date 01/17/2018 Noted Resolved Atrial Fibrillation [I48.91] INVALID FOR* Priority: Moderate More... Encounter for Long-Term (Current) Use of Antico*INVALID FOR* Priority: A Pure Hypercholesterolemia [E78.00] INVALID FOR* Priority: A KNEE PAIN - RIGHT [M25.569] INVALID FOR*08/18/2016 Priority: B GENERAL OSTEOARTHROSIS [M15.9] INVALID FOR* BENIGN NEOPLASM LG BOWEL [D12.6] DIVERTICULOSIS OF COLON W/O BLEED [K57.30] Internal hemorrhoids without mention of complic* 12/16/2011 KNEE JOINT REPLACEMENT STATUS [Z96.659] INVALID FOR* Sleep Apnea [G47.30] INVALID FOR* Priority: A More... Fracture of lateral malleolus [S82.63XA] INVALID FOR*08/18/2016 Priority: B More... 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 Vitamin D deficiency [E55.9] INVALID FOR* Esophagitis, unspecified [K20.9] INVALID FOR* Irritated//Inflamed Seborrheic Keratosis [L82.0]INVALID FOR*08/18/2016 Viral wart, unspecified [B07.9] INVALID FOR*08/18/2016 Neoplasm of Uncertain Behavior of skin: R/O Dys*INVALID FOR*08/18/2016 Atypical nevus of face [D22.30] INVALID FOR*08/18/2016 Sebaceous hyperplasia [L73.8] INVALID FOR*08/18/2016 Actinic skin damage [L57.8] INVALID FOR*08/18/2016 Solar lentigo [L81.4] INVALID FOR*08/18/2016 Other seborrheic keratosis [L82.1] INVALID FOR*08/18/2016 Multiple myeloma in relapse (HCC) [C90.02] INVALID FOR* Chronic low back pain [M54.5, G89.29] INVALID FOR* Hypothyroidism, acquired [E03.9] INVALID FOR* Encounter Status:Closed by PRISCILA SQUIRES on 01/17/18 PROGRESS Observed: 01/13/2018 Status: COMPLETED Source: [place] 8:32 AM [facility] REPOSITORY O ID: [id number] Author: Harsh Terry Service: (none) Author Type: Physician Type: Progress Notes Filed: 01/13/2018 9:04 AM Note Text: Diagnosis: 1) [place] light chain only multiple myeloma. HPI: The patient is a 77 yo male who was evaluated for pain in the right shoulder in April of 2011. Initially he had pain across the top of the shoulder. The onset was following lifting some luggage when he was on a cruise. He underwent an injection which didn't help the pain. He also had plain films which didn't show any significant bony pathology. He was referred to an orthopedic surgeon who ordered an MRI of the shoulder on 06/29/11. The study revealed multiple metastatic deposits throughout the shoulder girdle, involving the visualized humerus, scapula and clavicle. There was a large expansile lesion within the scapula extending into the periscapular soft tissues along the deep and superficial surface there was also a large expansile lesion of the distal clavicle. Work up has revealed kappa light chain multiple myeloma. Previous therapy: 1) VMP x3 cycles. Therapy was held due to worsening fatigue and neuropathy. He also had significant difficulty with constipation throughout his treatment course. Laboratory analysis revealed marked reduction in serum kappa light chain. 2) Velcade/dex (day 1, 8 and 15 every 28 days). Began 11/06/2014. Revlimid 15 mg days 1-21 added 06/2015. PD 04/2017. Current therapy: 1) Daratumumab/Pomalyst/dex. Presents for ongoing oncologic management. Interim history: He has no complaints today. He is getting over another upper respiratory tract infection. He was running low-grade temperatures with a last week in the range of 99. Mild cough but that is clearing. He feels all his symptoms are getting better. No wheezing or hemoptysis. He is not short of breath at rest. Appetite is good. Back pain more tolerable with the TENS unit. PMH, medications and allergies as below personally reviewed by me today. Any changes documented in appropriate section. ROS: Constitutional: Denies episodes of fever and night sweats. Normal appetite. Neuro: Denies METZGER, vertigo, dizziness and imbalance. HEENT: No recent change in voice, vision or hearing. Resp: See above. CVS: Denies exertional chest pain, PND, orthopnea and LE edema. GI: Denies dysgeusia. Denies symptoms of stomatitis. Denies dysphagia and odynophagia. Denies reflux, n/v, change in bowel habits and abdominal pain. : Denies dysuria or gross hematuria. No symptoms of bladder outlet obstruction. Endo: Denies hot flashes. Denies polyuria and polydipsia. Denies heat and cold intolerance. Musculoskeletal: See above. Derm: Denies rash. Denies jaundice and diffuse pruritis. Heme: Denies unusual bleeding and unexplained bruising. Psych: Normal mood. PHYSICAL EXAM: Vitals: Blood pressure 134/63, pulse 65, temperature 36.9 ?C (98.5 ?F), weight 106.1 kg (234 lb). Well-appearing and in no acute distress. EYES: Sclerae are anicteric bilaterally. NECK: Supple. LYMPHATIC: There is no palpable cervical, supraclavicular adenopathy. RESPIRATORY: Normal air entry. CVS: Regular rhythm. ABDOMEN: The abdomen is nondistended. There is no organomegaly. No tenderness. Extremities: Trace edema both ankles/distal lower extremities-stable. SKIN: No rash. 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 No focal motor weakness. LABS: Component Latest Ref Rng AND Units 03/29/2017 04/29/2017 05/13/2017 05/19/2017 07/29/2017 08/26/2017 09/22/2017 11/19/2017 12/15/2017 Protein, Total 6.0 - 8.4 g/dL 5.6 (L) 5.9 (L) 5.6 (L) 6.0 5.0 (L) 5.4 (L) 5.2 (L) 5.1 (L) 5.3 (L) Albumin for SPE 3.37 - 4.23 gm/dL 3.30 (L) 3.32 (L) 3.34 (L) 3.77 2.87 (L) 3.32 (L) 3.04 (L) 3.05 (L) 3.16 (L) Alpha 1 Globulin 0.18 - 0.31 gm/dL 0.23 0.29 0.23 0.23 0.26 0.27 0.27 0.28 0.29 Alpha 2 Globulin 0.52 - 0.97 gm/dL 0.72 0.83 0.70 0.76 0.73 0.79 0.78 0.77 0.73 Beta Globulin 0.84 - 1.36 gm/dL 0.73 (L) 0.79 (L) 0.73 (L) 0.72 (L) 0.68 (L) 0.73 (L) 0.75 (L) 0.70 (L) 0.74 (L) Gamma Globulin 0.70 - 1.44 gm/dL 0.63 (L) 0.68 (L) 0.61 (L) 0.52 (L) 0.45 (L) 0.29 (L) 0.35 (L) 0.30 (L) 0.38 (L) Interpretation (Prot Electro) SEE COMMENT SEE COMMENT SEE COMMENT SEE COMMENT SEE COMMENT SEE COMMENT SEE COMMENT SEE COMMENT SEE COMMENT M-Protein Location N/A N/A N/A N/A Gamma fraction Gamma fraction Gamma fraction Gamma fraction N/A M-Protein Concentration 0.00 gm/dL 0.00 0.00 0.00 0.00 0.10 (H) 0.08 (H) 0.09 (H) 0.08 (H) 0.00 SPE Staff Review Reviewed by Patricio Zaragoza M.D., PhD ([id number]) Reviewed by Mamadou Cabrera MD ([id number]) Reviewed by Zheng Urena MD.([id number]) Reviewed by Patricio Zaragoza M.D., PhD ([id number]) Reviewed by Anatoliy York M.D. ([id number]) Reviewed by Anatoliy York M.D. ([id number]) Reviewed by Anatoliy York M.D. ([id number]) Reviewed by Diamante Najera MD ([id number]) Reviewed by Anatoliy York M.D. ([id number]) Component Latest Ref Rng AND Units 06/17/2016 08/12/2016 10/07/2016 12/30/2016 03/29/2017 04/29/2017 05/13/2017 05/19/2017 07/29/2017 08/26/2017 09/22/2017 11/19/2017 [place] Free, Serum 3.30 - 19.40 mg/L 27.5 (H) 29.2 (H) 21.8 (H) 47.7 (H) 67.8 (H) 81.8 (H) 68.3 (H) 73.2 (H) 55.5 (H) 68.6 (H) 81.7 (H) 61.1 (H) Lambda Free, Serum 5.7 - 26.3 mg/L 11.0 13.8 10.8 14.8 15.8 13.0 6.7 7.0 6.5 6.6 6.6 9.9 K/L Ratio, Serum 0.26 - 1.65 2.50 (H) 2.12 (H) 2.02 (H) 3.22 (H) 4.29 (H) 6.29 (H) 10.19 (H) 10.46 (H) 8.54 (H) 10.39 (H) 12.38 (H) 6.17 (H) ASSESSMENT/PLAN: 1) Multiple myeloma. Light chain only disease. Relapsed with increase in serum kappa light chain and very small amount kappa in 24 hour urine. -Tolerating Pomalyst and daratumumab very well. No untoward side effect. -[place] light chain fluctuates, but overall stable and ratio to lambda potentially trending lower. -The measurable monoclonal protein on serum electrophoresis is most likely the daratumumab. It appeared after he started treatment. -Reviewed dexamethasone scheduling with him--20 mg PO on days 8 and 15 of each cycle. Plan: -Continue daratumumab monthly. -Continue Pomalyst, but wait to start next cycle so that he begins Pomalyst on day 1 of the next daratumumab infusion on 02/11. By mouth dexamethasone will then be on days 8 and 15 of each cycle. He will get IV dexamethasone on day 1 monthly. -Continue Zometa every 3 months. -Monthly OV with myeloma lab assessment. 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 Plan: -Continue under CPM. Harsh Terry DO CNOVSP Observed: 01/13/2018 Status: COMPLETED Source: [place] 8:30 AM [facility] REPOSITORY Visit (SP) Office ([place]) GALE VALDEZ ([id number]) 1940 M [place] Date Time Provider Department 01/13/18 8:30 AM HARSH TERRY During your visit today, we recorded the following information about you: Temperature Pulse Blood pressure Weight 98.5 degrees 65/minute 134/63 106.1 kg Kianna Hill LPN, LPN 01/13/2018 8:41 AM Signed Pt. Needing clarification on how to take the decadron., Discuss recent lab results, tx tomorrow. MUKUND Bentley DO 01/13/2018 9:04 AM Signed Diagnosis: 1) [place] light chain only multiple myeloma. HPI: The patient is a 77 yo male who was evaluated for pain in the right shoulder in April of 2011. Initially he had pain across the top of the shoulder. The onset was following lifting some luggage when he was on a cruise. He underwent an injection which didn't help the pain. He also had plain films which didn't show any significant bony pathology. He was referred to an orthopedic surgeon who ordered an MRI of the shoulder on 06/29/11. The study revealed multiple metastatic deposits throughout the shoulder girdle, involving the visualized humerus, scapula and clavicle. There was a large expansile lesion within the scapula extending into the periscapular soft tissues along the deep and superficial surface there was also a large expansile lesion of the distal clavicle. Work up has revealed kappa light chain multiple myeloma. Previous therapy: 1) VMP x3 cycles. Therapy was held due to worsening fatigue and neuropathy. He also had significant difficulty with constipation throughout his treatment course. Laboratory analysis revealed marked reduction in serum kappa light chain. 2) Velcade/dex (day 1, 8 and 15 every 28 days). Began 11/06/2014. Revlimid 15 mg days 1-21 added 06/2015. PD 04/2017. Current therapy: 1) Daratumumab/Pomalyst/dex. Presents for ongoing oncologic management. Interim history: He has no complaints today. He is getting over another upper respiratory tract infection. He was running low-grade temperatures with a last week in the range of 99. Mild cough but that is clearing. He feels all his symptoms are getting better. No wheezing or hemoptysis. He is not short of breath at rest. Appetite is good. Back pain more tolerable with the TENS unit. PMH, medications and allergies as below personally reviewed by me today. Any changes documented in appropriate section. ROS: Constitutional: Denies episodes of fever and night sweats. Normal appetite. Neuro: Denies METZGER, vertigo, dizziness and imbalance. HEENT: No recent change in voice, vision or hearing. Resp: See above. CVS: Denies exertional chest pain, PND, orthopnea and LE edema. GI: Denies dysgeusia. Denies symptoms of stomatitis. Denies dysphagia and odynophagia. Denies reflux, n/v, change in bowel habits and abdominal pain. : Denies dysuria or gross hematuria. No symptoms of bladder outlet obstruction. Endo: Denies hot flashes. Denies polyuria and polydipsia. Denies heat and cold intolerance. Musculoskeletal: See above. Derm: Denies rash. Denies jaundice and diffuse pruritis. Heme: Denies unusual bleeding and unexplained bruising. Psych: Normal mood. PHYSICAL EXAM: Vitals: Blood pressure 134/63, pulse 65, temperature 36.9 ?C (98.5 ?F), weight 106.1 kg (234 lb). Well-appearing and in no acute distress. EYES: Sclerae are anicteric bilaterally. NECK: Supple. LYMPHATIC: There is no palpable cervical, supraclavicular adenopathy. RESPIRATORY: Normal air entry. CVS: Regular rhythm. ABDOMEN: The abdomen is nondistended. There is no organomegaly. No tenderness. Extremities: Trace edema both ankles/distal lower extremities-stable. SKIN: No rash. 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 No focal motor weakness. LABS: Component Latest Ref Rng AND Units 03/29/2017 04/29/2017 05/13/2017 05/19/2017 07/29/2017 08/26/2017 09/22/2017 11/19/2017 12/15/2017 Protein, Total 6.0 - 8.4 g/dL 5.6 (L) 5.9 (L) 5.6 (L) 6.0 5.0 (L) 5.4 (L) 5.2 (L) 5.1 (L) 5.3 (L) Albumin for SPE 3.37 - 4.23 gm/dL 3.30 (L) 3.32 (L) 3.34 (L) 3.77 2.87 (L) 3.32 (L) 3.04 (L) 3.05 (L) 3.16 (L) Alpha 1 Globulin 0.18 - 0.31 gm/dL 0.23 0.29 0.23 0.23 0.26 0.27 0.27 0.28 0.29 Alpha 2 Globulin 0.52 - 0.97 gm/dL 0.72 0.83 0.70 0.76 0.73 0.79 0.78 0.77 0.73 Beta Globulin 0.84 - 1.36 gm/dL 0.73 (L) 0.79 (L) 0.73 (L) 0.72 (L) 0.68 (L) 0.73 (L) 0.75 (L) 0.70 (L) 0.74 (L) Gamma Globulin 0.70 - 1.44 gm/dL 0.63 (L) 0.68 (L) 0.61 (L) 0.52 (L) 0.45 (L) 0.29 (L) 0.35 (L) 0.30 (L) 0.38 (L) Interpretation (Prot Electro) SEE COMMENT SEE COMMENT SEE COMMENT SEE COMMENT SEE COMMENT SEE COMMENT SEE COMMENT SEE COMMENT SEE COMMENT M-Protein Location N/A N/A N/A N/A Gamma fraction Gamma fraction Gamma fraction Gamma fraction N/A M-Protein Concentration 0.00 gm/dL 0.00 0.00 0.00 0.00 0.10 (H) 0.08 (H) 0.09 (H) 0.08 (H) 0.00 SPE Staff Review Reviewed by Patricio Zaragoza M.D., PhD ([id number]) Reviewed by Mamadou Cabrera MD ([id number]) Reviewed by Zheng Urena MD.([id number]) Reviewed by Patricio Zaragoza M.D., PhD ([id number]) Reviewed by Anatoliy York M.D. ([id number]) Reviewed by Anatoliy York M.D. ([id number]) Reviewed by Anatoliy York M.D. ([id number]) Reviewed by Diamante Najera MD ([id number]) Reviewed by Anatoliy York M.D. ([id number]) Component Latest Ref Rng AND Units 06/17/2016 08/12/2016 10/07/2016 12/30/2016 03/29/2017 04/29/2017 05/13/2017 05/19/2017 07/29/2017 08/26/2017 09/22/2017 11/19/2017 [place] Free, Serum 3.30 - 19.40 mg/L 27.5 (H) 29.2 (H) 21.8 (H) 47.7 (H) 67.8 (H) 81.8 (H) 68.3 (H) 73.2 (H) 55.5 (H) 68.6 (H) 81.7 (H) 61.1 (H) Lambda Free, Serum 5.7 - 26.3 mg/L 11.0 13.8 10.8 14.8 15.8 13.0 6.7 7.0 6.5 6.6 6.6 9.9 K/L Ratio, Serum 0.26 - 1.65 2.50 (H) 2.12 (H) 2.02 (H) 3.22 (H) 4.29 (H) 6.29 (H) 10.19 (H) 10.46 (H) 8.54 (H) 10.39 (H) 12.38 (H) 6.17 (H) ASSESSMENT/PLAN: 1) Multiple myeloma. Light chain only disease. Relapsed with increase in serum kappa light chain and very small amount kappa in 24 hour urine. -Tolerating Pomalyst and daratumumab very well. No untoward side effect. -[place] light chain fluctuates, but overall stable and ratio to lambda potentially trending lower. -The measurable monoclonal protein on serum electrophoresis is most likely the daratumumab. It appeared after he started treatment. -Reviewed dexamethasone scheduling with him--20 mg PO on days 8 and 15 of each cycle. Plan: -Continue daratumumab monthly. -Continue Pomalyst, but wait to start next cycle so that he begins Pomalyst on day 1 of the next daratumumab infusion on 02/11. By mouth dexamethasone will then be on days 8 and 15 of each cycle. He will get IV dexamethasone on day 1 monthly. -Continue Zometa every 3 months. -Monthly OV with myeloma lab assessment. 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 Plan: -Continue under CPM. Harsh Terry DO Referring Provider: HARSH TERRY [[id number]] Allergies As of Date: 01/13/2018 Noted Allergy Reaction bandaid [Other] 11/20/2004 NEOSPORIN ([id number]*11/20/2004 14 - Other: See Comments Comments: skin blistering Date Reviewed: 01/13/2018 Reviewed by: Harsh Terry - Fully Assessed Reason for Visit: Established Patient [175] Primary Visit Diagnosis:Multiple myeloma in relapse (HCC) [C90.02] Order(s):dexamethasone (DECADRON) 4 mg tabletTake 5 tablets at once on day 8 and 15 of each chemotherapy (Darzalex) treatment.Disp: 30 tabletRfl: 2 Follow-up and Disposition History Recorded Prescriptions as of 01/13/2018 Sig: DEXAMETHASONE 4 MG TABLET Take 5 tablets at once on day* POMALYST 2 MG CAPSULE TAKE 1 CAPSULE BY MOUTH EVERY* WARFARIN 3 MG TABLET Hold Fri/Wed, resume normal d* CYCLOBENZAPRINE 10 MG TABLET Take 0.5-1 tablets by mouth t* LEVOTHYROXINE 50 MCG TABLET Take 1 tablet by mouth once d* AMIODARONE 200 MG TABLET TAKE 1 TABLET EVERY DAY ATORVASTATIN 10 MG TABLET TAKE 1 TABLET EVERY DAY POLYETHYLENE GLYCOL 3350 17 G* Take 17 g by mouth once daily* ACETAMINOPHEN 500 MG TABLET Take 1,000 mg by mouth as nee* STOOL SOFTENER ORAL Take 1 tablet by mouth once d* SODIUM CHLORIDE 0.9% FLUSH Start IV as needed for labs o* * TRAMADOL 50 MG TABLET Take 1-2 tablets every 6 hour* Problem List As Of Date 01/13/2018 Noted Resolved Atrial Fibrillation [I48.91] INVALID FOR* Priority: Moderate More... Encounter for Long-Term (Current) Use of Antico*INVALID FOR* Priority: A Pure Hypercholesterolemia [E78.00] INVALID FOR* Priority: A KNEE PAIN - RIGHT [M25.569] INVALID FOR*08/18/2016 Priority: B GENERAL OSTEOARTHROSIS [M15.9] INVALID FOR* BENIGN NEOPLASM LG BOWEL [D12.6] DIVERTICULOSIS OF COLON W/O BLEED [K57.30] Internal hemorrhoids without mention of complic* 12/16/2011 KNEE JOINT REPLACEMENT STATUS [Z96.659] INVALID FOR* Sleep Apnea [G47.30] INVALID FOR* Priority: A More... Fracture of lateral malleolus [S82.63XA] INVALID FOR*08/18/2016 Priority: B More... 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 Vitamin D deficiency [E55.9] INVALID FOR* Esophagitis, unspecified [K20.9] INVALID FOR* Irritated//Inflamed Seborrheic Keratosis [L82.0]INVALID FOR*08/18/2016 Viral wart, unspecified [B07.9] INVALID FOR*08/18/2016 Neoplasm of Uncertain Behavior of skin: R/O Dys*INVALID FOR*08/18/2016 Atypical nevus of face [D22.30] INVALID FOR*08/18/2016 Sebaceous hyperplasia [L73.8] INVALID FOR*08/18/2016 Actinic skin damage [L57.8] INVALID FOR*08/18/2016 Solar lentigo [L81.4] INVALID FOR*08/18/2016 Other seborrheic keratosis [L82.1] INVALID FOR*08/18/2016 Multiple myeloma in relapse (HCC) [C90.02] INVALID FOR* Chronic low back pain [M54.5, G89.29] INVALID FOR* Hypothyroidism, 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 Needing clarification on how to take the decadron., Discuss recent lab results, tx tomorrow. Kianna Hill LPN Encounter Status:Closed by HARSH TERRY DO on 01/13/18 [place] ABS GR + CBC Collected: 01/13/2018 Status: F Source: [place] 8:14 AM [facility] REPOSITORY TYPE CODE TESTS RESULT OUT OF REFERENCE UNITS RANGE LAB WWBC 3.70-11.00 k/uL [place] WBC 4.67 LAB WRBC 4.20-6.00 m/uL Low [place] RBC 3.41 LAB WHGB 13.0-17.0 g/dL Low [place] Hemoglobin 12.0 LAB WHCT 39.0-51.0 % Low [place] Hematocrit 37.0 LAB WMCV 80.0-100.0 fL [place] High MCV 108.5 LAB WMCH 26.0-34.0 pg [place] High MCH 35.2 LAB WMCHC 30.5-36.0 g/dL [place] MCHC 32.4 LAB WRDW 11.5-15.0 % [place] RDW 14.9 LAB WPLT 150-400 k/uL [place] Platelet Cnt 155 LAB WMPV 9.0-12.7 fL [place] MPV 10.7 Result Comment: Test performed at: [facility] [place], [facility] [address] [place] [address]. LAB ABGRAN 1.45-7.50 k/uL Absol Gran 2.04 Count COMP METABOLIC PANEL Collected: 01/13/2018 Status: F Source: [place] 8:13 AM [facility] REPOSITORY TYPE CODE TESTS RESULT OUT OF REFERENCE UNITS RANGE LAB TP 6.3-8.0 g/dL Protein, Low Total 5.3 LAB ALB 3.9-4.9 g/dL Albumin Low 3.4 LAB CA 8.5-10.2 mg/dL Calcium, Total 9.0 LAB TBIL 0.2-1.3 mg/dL Bilirubin, Total 0.5 LAB ALKP 38-113 U/L Alkaline Phosphatase 63 LAB AST 14-40 U/L AST 17 LAB GLU 74-99 mg/dL Glucose High 111 LAB BUN 7-21 mg/dL BUN 19 LAB CRET 0.73-1.22 mg/dL Creatinine 0.79 LAB NA 136-144 mmol/L Sodium 138 LAB K 3.7-5.1 mmol/L Potassium 4.2 LAB CL 97-105 mmol/L Chloride High 110 LAB CO2 22-30 mmol/L CO2 22 LAB AGAP 9-18 mmol/L Anion Gap Low 6 LAB ALT 10-54 U/L ALT 15 LAB GFRAA eGFR- >60 Amer. LAB GFRNAA . eGFR-All Other Races >60 Result Comment: eGFR (Estimated GFR) Units of measure: mL/min/1.73 meters squared eGFR is derived from the reexpressed MDRD Study equation using the following parameters: serum creatinine, age, gender and race. The creatinine assay has been calibrated to be traceable to IDMS. An eGFR <60 mL/min/1.73m2 for >3 months is consistent with chronic kidney disease. Refer to KDOQI guidelines for clinical interpretation. In patients with unstable renal function, e.g. those with acute kidney injury, the eGFR may not accurately reflect actual GFR. B2 MICROGLOBULIN Collected: 01/13/2018 Status: F Source: [place] 8:12 AM [facility] REPOSITORY TYPE CODE TESTS RESULT OUT OF REFERENCE UNITS RANGE LAB B2M 0.8-2.2 mg/L B2 Microglobulin High 3.4 Performed By: #### B2M, SEPG, SERMPA #### [facility] [address] [place] [address] PROTEIN ELECTROPHOR. Collected: 01/13/2018 Status: F Source: [place] 8:12 AM [facility] REPOSITORY TYPE CODE TESTS RESULT OUT OF REFERENCE UNITS RANGE LAB TPSPE 6.0-8.4 g/dL Total Protein, Low SPE 5.2 LAB ALBE 3.37-4.23 gm/dL Albumin Low 2.87 LAB A1GL 0.18-0.31 gm/dL Alpha 1 Globulin 0.29 LAB A2GL 0.52-0.97 gm/dL Alpha 2 Globulin 0.81 LAB BEGL 0.84-1.36 gm/dL Beta Globulin Low 0.76 LAB GAGL 0.70-1.44 gm/dL Gamma Globulin Low 0.47 LAB SPEINT Interpretation SEE COMMENT Result Comment: No definitive M protein is identified on protein electrophoresis. LAB LOC M Protein N/A Location LAB GPERDL 0.00 gm/dL M Rich 0.00 Concentratn LAB SPESTF SPE Staff Review Reviewed by Anatoliy York M.D. ([id number]) Performed By: #### B2M, SEPG, SERMPA #### [facility] [address], [place] [address] MONCLNL PROTEIN, SER Collected: 01/13/2018 Status: F Source: [place] 8:12 AM [facility] REPOSITORY TYPE CODE TESTS RESULT OUT OF REFERENCE UNITS RANGE LAB MPAIGG 717-1411 mg/dL Low MPA Serum 305 IgG LAB MPAIGA 78-391 mg/dL Low MPA Serum 7 IgA LAB MPAIGM 53-334 mg/dL Low MPA Serum 13 IgM LAB FKAPS 3.30-19.40 mg/L High [place], 79.1 Free, Serum Result Comment: Rarely, increased serum free light chains values may not be detected due to antigen excess phenomenon. Results should always be correlated with other laboratory results and clinical findings. LAB FLAMS 5.7-26.3 mg/L Lambda, Free, 9.2 Serum Result Comment: Rarely, increased serum free light chains values may not be detected due to antigen excess phenomenon. Results should always be correlated with other laboratory results and clinical findings. LAB KLRAT 0.26-1.65 High K/L Ratio, Serum 8.60 LAB MPAR No M protein is identified. MPA Result A Abnormal poorly defined Alert region of restricted mobility is present that may represent an M protein. LAB INTP MPA SEE Interpretation COMMENT Result Comment: Poorly defined region of restricted mobility in IgG and kappa lanes. Pattern is less well defined or fainter than typically seen in monoclonal gammopathy. This could represent either an atypical presentation of polyclonal immunoglobulins or the presence of a low level IgG kappa monoclonal gammopathy. If clinically indicated, urine monoclonal protein analysis and serum free light chain measurements are recommended to evaluate further for monoclonal gammopathy. Clinical correlation is necessary. [facility] Staff Reviewed by Review Anatoliy York M.D. ([id number]) Performed By: #### B2M, SEPG, SERMPA #### [facility] [address] [place] [address] PROTEIN ELEC,UR RAND Collected: 01/13/2018 Status: F Source: [place] 8:12 AM [facility] REPOSITORY TYPE CODE TESTS RESULT OUT OF REFERENCE UNITS RANGE LAB UTPR 0-20 mg/dL Protein Urine Random 13 LAB UALB % Albumin 19.7 LAB UA1G >0 % Alpha 1 Globulin 8.0 LAB UA2G % Alpha 2 Globulin 24.3 LAB UBEG % Beta Globulin 32.8 LAB UGAG % Gamma Globulin 15.1 LAB UPEINT Interpretation SEE COMMENT Result Comment: An M protein is identified on protein electrophoresis. See separate immunofixation report for characterization of the M protein. LAB UPEST Staff Reviewed by Review Anatoliy York M.D. ([id number]) Performed By: #### UEPG URMPA #### [facility] [address] [place] [address] MONOCLONAL PROT UR Collected: 01/13/2018 Status: F Source: [place] 8:12 AM [facility] REPOSITORY TYPE CODE TESTS RESULT OUT OF RANGE REFERENCE UNITS LAB UMPA No M protein is UMPA Result Abnormal identified. M protein Alert is present. LAB UINTP UMPA Interpretation SEE COMMENT Result Comment: An atypical restricted band is present in the kappa region. The presence of free kappa light chains in the urine is consistent with a kappa-containing monoclonal gammopathy. LAB UMPSTF UMPA Reviewed by Staff Review Anatoliy York M.D. ([id number]) Performed By: #### UEPG, URMPA #### [place] [id number] [place] [id number] PROGRESS Observed: 12/31/2017 Status: COMPLETED Source: [place] 4:09 PM [facility] REPOSITORY HNO ID: [id number] Author: Elle Leger Service: (none) Author Type: Physician Type: Progress Notes Filed: 12/31/2017 4:24 PM Note Text: I agree with the advice given; stay on same dose and recheck in 4 weeks Elle Leger MD PROGRESS Observed: 12/31/2017 Status: COMPLETED Source: [place] 12:31 PM [facility] REPOSITORY HNO ID: [id number] Author: Sailaja Razo RN Service: (none) Author Type: (none) Type: Progress Notes Filed: 12/31/2017 12:32 PM Note Text: patient had inr completed at [facility] patients inr is 2.3 (patients inr range is 2.0-3.0) patient is currently taking 6mg Tues,Fri and 3mg all other days patients last dose change was on 12/10/17 due to a high level of 4.4 (dose at that time was 6mg Tues,Fri,Sun and 3mg all other days) patient has had no changes in medication and no missed doses and no change in diet Advised patient to continue on the same dose(s) and that they would only be contacted regarding dosage and follow up instructions after review with provider, if a change is needed. Written instructions given and patient verbalized understanding. Presently scheduled in 4 weeks (01/28/18) for follow up INR. PROGRESS Observed: 12/16/2017 Status: COMPLETED Source: [place] 11:12 AM [facility] REPOSITORY HNO ID: [id number] Author: Elle Leger Service: (none) Author Type: Physician Type: Progress Notes Filed: 12/16/2017 1:47 PM Note Text: I agree with the advice given; stay on same dose and recheck in 2 weeks as planned Elle Leger MD PROGRESS Observed: 12/16/2017 Status: COMPLETED Source: [place] 10:41 AM [facility] REPOSITORY HNO ID: [id number] Author: Sailaja Razo RN Service: (none) Author Type: (none) Type: Progress Notes Filed: 12/16/2017 10:42 AM Note Text: patient had inr completed at [facility] patients inr is 2.2 (patients inr range is 2.0-3.0) patient is currently taking 6mg Tues,Fri and 3mg all other days patients last dose change was on 12/10/17 due to a high level of 4.4 (dose at that time was 6mg Tues,Fri,Sun and 3mg all other days) patient has had no changes in medication except for coumadin and no missed doses and no change in diet Advised patient to continue on the same dose(s) and that they would only be contacted regarding dosage and follow up instructions after review with provider, if a change is needed. Written instructions given and patient verbalized understanding. Presently scheduled in 2 weeks (12/31/17) for follow up INR since this is the first normal reading since dose change PROGRESS Observed: 12/15/2017 Status: COMPLETED Source: [place] 12:12 PM [facility] REPOSITORY HNO ID: [id number] Author: Harsh Terry Service: (none) Author Type: Physician Type: Progress Notes Filed: 12/16/2017 2:42 PM Note Text: Diagnosis: 1) [place] light chain only multiple myeloma. HPI: The patient is a 77 yo male who was evaluated for pain in the right shoulder in April of 2011. Initially he had pain across the top of the shoulder. The onset was following lifting some luggage when he was on a cruise. He underwent an injection which didn't help the pain. He also had plain films which didn't show any significant bony pathology. He was referred to an orthopedic surgeon who ordered an MRI of the shoulder on 06/29/11. The study revealed multiple metastatic deposits throughout the shoulder girdle, involving the visualized humerus, scapula and clavicle. There was a large expansile lesion within the scapula extending into the periscapular soft tissues along the deep and superficial surface there was also a large expansile lesion of the distal clavicle. Work up has revealed kappa light chain multiple myeloma. Previous therapy: 1) VMP x3 cycles. Therapy was held due to worsening fatigue and neuropathy. He also had significant difficulty with constipation throughout his treatment course. Laboratory analysis revealed marked reduction in serum kappa light chain. 2) Velcade/dex (day 1, 8 and 15 every 28 days). Began 11/06/2014. Revlimid 15 mg days 1-21 added 06/2015. PD 04/2017. Current therapy: 1) Daratumumab/Pomalyst/dex. Presents for ongoing oncologic management. Interim history: His back pain is doing better. He started on a TENS unit. Otherwise his feet and lower extremity neuropathy is stable. No other side effects from treatment. His energy level is doing well. He remains as active as he can. No unusual bleeding or unexplained bruising. PMH, medications and allergies as below personally reviewed by me today. Any changes documented in appropriate section. ROS: Constitutional: Denies episodes of fever and night sweats. Normal appetite. Neuro: Denies METZGER, vertigo, dizziness and imbalance. HEENT: No recent change in voice, vision or hearing. Resp: Denies cough, wheeze and hemoptysis. Denies shortness of breath at rest. CVS: Denies exertional chest pain, PND, orthopnea and LE edema. GI: Denies dysgeusia. Denies symptoms of stomatitis. Denies dysphagia and odynophagia. Denies reflux, n/v, change in bowel habits and abdominal pain. : Denies dysuria or gross hematuria. No symptoms of bladder outlet obstruction. Endo: Denies hot flashes. Denies polyuria and polydipsia. Denies heat and cold intolerance. Musculoskeletal: See above. Derm: Denies rash. Denies jaundice and diffuse pruritis. Heme: Denies unusual bleeding and unexplained bruising. Psych: Normal mood. PHYSICAL EXAM: Vitals: Blood pressure 124/60, pulse 60, temperature 36.4 ?C (97.6 ?F), weight 104.3 kg (230 lb). Well-appearing and in no acute distress. EYES: Sclerae are anicteric bilaterally. NECK: Supple. LYMPHATIC: There is no palpable cervical, supraclavicular adenopathy. RESPIRATORY: Normal air entry. CVS: Regular rhythm. ABDOMEN: The abdomen is nondistended. There is no organomegaly. No tenderness. Extremities: Trace edema both ankles/distal lower extremities-stable. SKIN: No rash. 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 No focal motor weakness. ASSESSMENT/PLAN: 1) Multiple myeloma. Light chain only disease. Relapsed with increase in serum kappa light chain and very small amount kappa in 24 hour urine. -Tolerating Pomalyst and daratumumab very well. No untoward side effect. -Reviewed dexamethasone scheduling with him. He will be taking once a week on Tuesdays. Plan: -Continue daratumumab. -Continue Pomalyst. -Continue Zometa every 3 months. -Monthly OV with myeloma lab assessment. 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 Plan: -Continue under CPM. Harsh Terry DO CNOVSP Observed: 12/15/2017 Status: COMPLETED Source: [place] 11:50 AM [facility] REPOSITORY Visit (SP) Office ([place]) GALE VALDEZ ([id number]) [address] [facility] Date Time Provider Department 12/15/17 11:50 AM HARSH TERRY During your visit today, we recorded the following information about you: Temperature Pulse Blood pressure Weight 97.6 degrees 60/minute 124/60 104.3 kg Kianna Hill LPN, LPN 12/15/2017 12:12 PM Signed Est pt., discuss recent lab results, tx on Wednesday MUKUND Bentley DO 12/16/2017 2:42 PM Signed Diagnosis: 1) [place] light chain only multiple myeloma. HPI: The patient is a 77 yo male who was evaluated for pain in the right shoulder in April of 2011. Initially he had pain across the top of the shoulder. The onset was following lifting some luggage when he was on a cruise. He underwent an injection which didn't help the pain. He also had plain films which didn't show any significant bony pathology. He was referred to an orthopedic surgeon who ordered an MRI of the shoulder on 06/29/11. The study revealed multiple metastatic deposits throughout the shoulder girdle, involving the visualized humerus, scapula and clavicle. There was a large expansile lesion within the scapula extending into the periscapular soft tissues along the deep and superficial surface there was also a large expansile lesion of the distal clavicle. Work up has revealed kappa light chain multiple myeloma. Previous therapy: 1) VMP x3 cycles. Therapy was held due to worsening fatigue and neuropathy. He also had significant difficulty with constipation throughout his treatment course. Laboratory analysis revealed marked reduction in serum kappa light chain. 2) Velcade/dex (day 1, 8 and 15 every 28 days). Began 11/06/2014. Revlimid 15 mg days 1-21 added 06/2015. PD 04/2017. Current therapy: 1) Daratumumab/Pomalyst/dex. Presents for ongoing oncologic management. Interim history: His back pain is doing better. He started on a TENS unit. Otherwise his feet and lower extremity neuropathy is stable. No other side effects from treatment. His energy level is doing well. He remains as active as he can. No unusual bleeding or unexplained bruising. PMH, medications and allergies as below personally reviewed by me today. Any changes documented in appropriate section. ROS: Constitutional: Denies episodes of fever and night sweats. Normal appetite. Neuro: Denies METZGER, vertigo, dizziness and imbalance. HEENT: No recent change in voice, vision or hearing. Resp: Denies cough, wheeze and hemoptysis. Denies shortness of breath at rest. CVS: Denies exertional chest pain, PND, orthopnea and LE edema. GI: Denies dysgeusia. Denies symptoms of stomatitis. Denies dysphagia and odynophagia. Denies reflux, n/v, change in bowel habits and abdominal pain. : Denies dysuria or gross hematuria. No symptoms of bladder outlet obstruction. Endo: Denies hot flashes. Denies polyuria and polydipsia. Denies heat and cold intolerance. Musculoskeletal: See above. Derm: Denies rash. Denies jaundice and diffuse pruritis. Heme: Denies unusual bleeding and unexplained bruising. Psych: Normal mood. PHYSICAL EXAM: Vitals: Blood pressure 124/60, pulse 60, temperature 36.4 ?C (97.6 ?F), weight 104.3 kg (230 lb). Well-appearing and in no acute distress. EYES: Sclerae are anicteric bilaterally. NECK: Supple. LYMPHATIC: There is no palpable cervical, supraclavicular adenopathy. RESPIRATORY: Normal air entry. CVS: Regular rhythm. ABDOMEN: The abdomen is nondistended. There is no organomegaly. No tenderness. Extremities: Trace edema both ankles/distal lower extremities-stable. SKIN: No rash. 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 No focal motor weakness. ASSESSMENT/PLAN: 1) Multiple myeloma. Light chain only disease. Relapsed with increase in serum kappa light chain and very small amount kappa in 24 hour urine. -Tolerating Pomalyst and daratumumab very well. No untoward side effect. -Reviewed dexamethasone scheduling with him. He will be taking once a week on Tuesdays. Plan: -Continue daratumumab. -Continue Pomalyst. -Continue Zometa every 3 months. -Monthly OV with myeloma lab assessment. 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 Plan: -Continue under CPM. Harsh Terry DO Referring Provider: HARSH TERRY [[id number]] Allergies As of Date: 12/15/2017 Noted Allergy Reaction bandaid [Other] 11/20/2004 NEOSPORIN ([id number]*11/20/2004 14 - Other: See Comments Comments: skin blistering Date Reviewed: 12/15/2017 Reviewed by: Kianna Smith (Paint Stock Clerk) MUKUND Hill - Fully Assessed Reason for Visit: Established Patient [[id number]] Primary Visit Diagnosis:Multiple myeloma in relapse (HCC) [C90.02] Follow-up and Disposition History Recorded Prescriptions as of 12/15/2017 Sig: WARFARIN 3 MG TABLET Hold Fri/Sat, resume normal d* POMALYST 2 MG CAPSULE TAKE 1 CAPSULE BY MOUTH EVERY* DEXAMETHASONE 4 MG TABLET Take 5 tablets once the day a* CYCLOBENZAPRINE 10 MG TABLET Take 0.5-1 tablets by mouth t* LEVOTHYROXINE 50 MCG TABLET Take 1 tablet by mouth once d* AMIODARONE 200 MG TABLET TAKE 1 TABLET EVERY DAY MIRTAZAPINE 30 MG TABLET Take 1 tablet by mouth daily * ATORVASTATIN 10 MG TABLET TAKE 1 TABLET EVERY DAY POLYETHYLENE GLYCOL 3350 17 G* Take 17 g by mouth once daily* ACETAMINOPHEN 500 MG TABLET Take 1,000 mg by mouth as nee* SODIUM CHLORIDE 0.9% FLUSH Start IV as needed for labs o* * TRAMADOL 50 MG TABLET Take 1-2 tablets every 6 hour* STOOL SOFTENER ORAL Take 1 tablet by mouth once d* Problem List As Of Date 12/15/2017 Noted Resolved Atrial Fibrillation [I48.91] INVALID FOR* Priority: Moderate More... Encounter for Long-Term (Current) Use of Antico*INVALID FOR* Priority: A Pure Hypercholesterolemia [E78.00] INVALID FOR* Priority: A KNEE PAIN - RIGHT [M25.569] INVALID FOR*08/18/2016 Priority: B GENERAL OSTEOARTHROSIS [M15.9] INVALID FOR* BENIGN NEOPLASM LG BOWEL [D12.6] DIVERTICULOSIS OF COLON W/O BLEED [K57.30] Internal hemorrhoids without mention of complic* 12/16/2011 KNEE JOINT REPLACEMENT STATUS [Z96.659] INVALID FOR* Sleep Apnea [G47.30] INVALID FOR* Priority: A More... Fracture of lateral malleolus [S82.63XA] INVALID FOR*08/18/2016 Priority: B More... 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 Vitamin D deficiency [E55.9] INVALID FOR* Esophagitis, unspecified [K20.9] INVALID FOR* Irritated//Inflamed Seborrheic Keratosis [L82.0]INVALID FOR*08/18/2016 Viral wart, unspecified [B07.9] INVALID FOR*08/18/2016 Neoplasm of Uncertain Behavior of skin: R/O Dys*INVALID FOR*08/18/2016 Atypical nevus of face [D22.30] INVALID FOR*08/18/2016 Sebaceous hyperplasia [L73.8] INVALID FOR*08/18/2016 Actinic skin damage [L57.8] INVALID FOR*08/18/2016 Solar lentigo [L81.4] INVALID FOR*08/18/2016 Other seborrheic keratosis [L82.1] INVALID FOR*08/18/2016 Multiple myeloma in relapse (HCC) [C90.02] INVALID FOR* Chronic low back pain [M54.5, G89.29] INVALID FOR* Hypothyroidism, acquired [E03.9] INVALID FOR* Visit Notes: >> Kianna Smith (Mukund) MUKUND Hill WedDec 15, 2017 11:54 AM Status: Signed Est pt., discuss recent lab results, tx on Wednesday Kianna Hill LPN Encounter Status:Closed by HARSH TERRY DO on 12/16/17 COMP METABOLIC PANEL Collected: 12/15/2017 Status: F Source: [place] 11:44 AM [facility] REPOSITORY TYPE CODE TESTS RESULT OUT OF REFERENCE UNITS RANGE LAB TP 6.3-8.0 g/dL Low Protein, Total 5.4 LAB ALB 3.9-4.9 g/dL Low Albumin 3.6 LAB CA 8.5-10.2 mg/dL Calcium, Total 9.3 LAB TBIL 0.2-1.3 mg/dL Bilirubin, Total 0.4 LAB ALKP 38-113 U/L Alkaline Phosphatase 63 LAB AST 14.48 U/L Low AST 12 Result Comment: Male reference range: 14-40 U/L LAB GLU 74-99 mg/dL Glucose High 169 LAB BUN 7-21 mg/dL BUN High 27 LAB CRET 0.73-1.22 mg/dL Creatinine 0.75 LAB NA 136-144 mmol/L Sodium 139 LAB K 3.7-5.1 mmol/L Potassium 4.2 LAB CL 97-105 mmol/L Chloride High 109 LAB CO2 22-30 mmol/L Low CO2 18 LAB AGAP 9-18 mmol/L Anion Gap 12 LAB ALT 10-54 U/L ALT 16 LAB GFRAA eGFR- Amer. >60 LAB GFRNAA . eGFR-All Other Races >60 Result Comment: eGFR (Estimated GFR) Units of measure: mL/min/1.73 meters squared eGFR is derived from the reexpressed MDRD Study equation using the following parameters: serum creatinine, age, gender and race. The creatinine assay has been calibrated to be traceable to IDMS. An eGFR <60 mL/min/1.73m2 for >3 months is consistent with chronic kidney disease. Refer to KDOQI guidelines for clinical interpretation. In patients with unstable renal function, e.g. those with acute kidney injury, the eGFR may not accurately reflect actual GFR. PROTEIN ELEC,UR RAND Collected: 12/15/2017 Status: F Source: [place] 11:43 AM [facility] REPOSITORY TYPE CODE TESTS RESULT OUT OF REFERENCE UNITS RANGE LAB UTPR 0-20 mg/dL Protein Urine Random 11 LAB UALB % Albumin 18.7 LAB UA1G >0 % Alpha 1 Globulin 9.2 LAB UA2G % Alpha 2 Globulin 25.0 LAB UBEG % Beta Globulin 25.5 LAB UGAG % Gamma Globulin 21.7 LAB UPEINT Interpretation SEE COMMENT Result Comment: An M protein is identified on protein electrophoresis. See separate immunofixation report for characterization of the M protein. LAB UPESTF Staff Reviewed by Review Anatoliy York M.D. ([id number]) Performed By: #### UOBEY GARCÍAMPA #### [facility] [employer] [address], [place] [address] MONOCLONAL PROT UR Collected: 12/15/2017 Status: F Source: [place] 11:43 AM [facility] REPOSITORY TYPE CODE TESTS RESULT OUT OF RANGE REFERENCE UNITS LAB UMPA No M protein is UMPA Result Abnormal identified. M protein Alert is present. LAB UINTP UMPA Interpretation SEE COMMENT Result Comment: An atypical restricted band is present in the kappa region. The presence of free kappa light chains in the urine is consistent with a kappa-containing monoclonal gammopathy. LAB UMPSTF UMPA Reviewed by Staff Review Anatoliy York M.D. ([id number]) Performed By: #### UEPG, URMPA #### [facility] [employer] [address], [place] [address] B2 MICROGLOBULIN Collected: 12/15/2017 Status: F Source: [place] 11:42 AM [facility] REPOSITORY TYPE CODE TESTS RESULT OUT OF REFERENCE UNITS RANGE LAB B2M 0.8-2.2 mg/L B2 Microglobulin High 2.5 Performed By: #### B2M, SEPG, SERMPA #### [facility] [employer] [address], [place] [address] PROTEIN ELECTROPHOR. Collected: 12/15/2017 Status: F Source: [place] 11:42 AM [facility] REPOSITORY TYPE CODE TESTS RESULT OUT OF REFERENCE UNITS RANGE LAB TPSPE 6.0-8.4 g/dL Total Protein, Low SPE 5.3 LAB ALBE 3.37-4.23 gm/dL Albumin Low 3.16 LAB A1GL 0.18-0.31 gm/dL Alpha 1 Globulin 0.29 LAB A2GL 0.52-0.97 gm/dL Alpha 2 Globulin 0.73 LAB BEGL 0.84-1.36 gm/dL Beta Globulin Low 0.74 LAB GAGL 0.70-1.44 gm/dL Gamma Globulin Low 0.38 LAB SPEINT Interpretation SEE COMMENT Result Comment: No definitive M protein is identified on protein electrophoresis. LAB LOC M Protein N/A Location LAB GPERDL 0.00 gm/dL M Rich 0.00 Concentratn LAB SPESTF SPE Staff Review Reviewed by Anatoliy York M.D. ([id number]) Performed By: #### Yony, SEPG, SERMPA #### [facility] [employer] [address], [place] [address] MONCLNL PROTEIN, SER Collected: 12/15/2017 Status: F Source: [place] 11:42 AM [facility] REPOSITORY TYPE CODE TESTS RESULT OUT OF REFERENCE UNITS RANGE LAB IGG 717-1411 mg/dL Low IgG 317 LAB IGA 78-391 mg/dL Low IgA 8 LAB IGM 53-334 mg/dL Low IgM 13 LAB FKAPS 3.30-19.40 mg/L High [place], 57.3 Free, Serum Result Comment: Rarely, increased serum free light chains values may not be detected due to antigen excess phenomenon. Results should always be correlated with other laboratory results and clinical findings. LAB FLAMS 5.7-26.3 mg/L Lambda, Free, 6.7 Serum Result Comment: Rarely, increased serum free light chains values may not be detected due to antigen excess phenomenon. Results should always be correlated with other laboratory results and clinical findings. LAB KLRAT 0.26-1.65 High K/L Ratio, Serum 8.55 LAB MPAR No M protein is identified. MPA Result A Abnormal poorly defined Alert region of restricted mobility is present that may represent an M protein. LAB INTP MPA SEE Interpretation COMMENT Result Comment: Poorly defined region of restricted mobility in IgG and kappa lanes. Pattern is less well defined or fainter than typically seen in monoclonal gammopathy. This could represent either an atypical presentation of polyclonal immunoglobulins or the presence of a low level IgG kappa monoclonal gammopathy. If clinically indicated, urine monoclonal protein analysis and serum free light chain measurements are recommended to evaluate further for monoclonal gammopathy. Clinical correlation is necessary. LAB MPASTF Staff Reviewed by Review Anatoliy York M.D. ([id number]) Performed By: #### Yony, IMANI, JUAN #### [facility] [place] [address], [place] [address] RENATO ABS GR + CBC Collected: 12/15/2017 Status: F Source: [place] 11:41 AM [facility] REPOSITORY TYPE CODE TESTS RESULT OUT OF REFERENCE UNITS RANGE LAB WWBC 3.70-11.00 k/uL [place] WBC 7.87 LAB WRBC 4.20-6.00 m/uL Low Renato RBC 3.21 LAB WHGB 13.0-17.0 g/dL Low [place] Hemoglobin 11.9 LAB WHCT 39.0-51.0 % Low [place] Hematocrit 34.2 LAB WMCV 80.0-100.0 fL Renato High MCV 106.5 LAB WMCH 26.0-34.0 pg [place] High MCH 37.1 LAB WMCHC 30.5-36.0 g/dL Renato MCHC 34.8 LAB WRDW 11.5-15.0 % [place] High RDW 16.2 LAB WPLT 150-400 k/uL [place] Platelet Cnt 164 LAB WMPV 9.0-12.7 fL [place] MPV 10.8 Result Comment: Test performed at: [facility], [address] [place] [address]. LAB ABGRAN 1.45-7.50 k/uL Absol Gran 5.29 Count PROGRESS Observed: 12/10/2017 Status: COMPLETED Source: [place] 5:04 PM [facility] REPOSITORY HNO ID: [id number] Author: Nadine Hastings Ma Service: (none) Author Type: (none) Type: Progress Notes Filed: 12/10/2017 5:06 PM Note Text: Pt has been notified and verbalize understanding. Med list and tracker updated. Nadine Hastings Ma PROGRESS Observed: 12/10/2017 Status: COMPLETED Source: [place] 10:57 AM [facility] REPOSITORY HNO ID: [id number] Author: Elle Leger Service: (none) Author Type: Physician Type: Progress Notes Filed: 12/10/2017 5:06 PM Note Text: Hold for 2 days, then go back to 6mg Tues,Fri and 3mg all other days Recheck in 1 week as planned Elle Leger MD PROGRESS Observed: 12/10/2017 Status: COMPLETED Source: [place] 10:49 AM [facility] REPOSITORY HNO ID: [id number] Author: Sailaja Razo RN Service: (none) Author Type: (none) Type: Progress Notes Filed: 12/10/2017 10:50 AM Note Text: patient had inr completed at [facility] patients inr is 4.4 (patients inr range is 2.0-3.0) patient is currently taking 6mg Tues,Fri,Sun and 3mg all other days patients last dose change was on 04/30/17 due to a low level of 1.7 (dose at that time was 6mg Tues,Fri and 3mg all other days) patient has had no changes in medication and no missed doses and no change in diet Advised patient that they would be contacted regarding medication dose and when to follow up after information is reviewed by provider. After provider review please contact the patient with information and schedule follow up appointment with coumadin clinic. FYI - patient has been instructed to hold coumadin until contacted and has been scheduled for a 1 week inr follow up on 12/16/17 CNNURSE Observed: 11/27/2017 Status: COMPLETED Source: [place] 9:10 AM [facility] REPOSITORY Nurse Visit (CORWST) GALE VALDEZ ([id number]) 1940 M [address] Date Time Provider Department 11/27/17 9:10 AM [facility] During your visit today, we recorded the following information about you: Jhonny Sarbjit Rodríguezk Pito 11/27/2017 9:00 AM Signed 77 year old male here for INACTIVATED INFLUENZA VACCINE. Season Patient is identified by name and date of : Yes [] CONTRAINDICATIONS color enhanced section Age less than 6 months? No Allergy to eggs, chicken, chicken feathers, or chicken dander? No Allergy to thimerosal (a preservative) or formaldehyde, gelatin? No History of severe reaction to any vaccine component or a previous dose of influenza vaccination? No History of Guillain-Garnett Syndrome within 6 weeks after a previous influenza vaccine? No Patient is not moderately or severely ill? No Current temperature greater or equal to 100.4F? No History of Bone Marrow Transplant prior 6 months or solid organ transplant in the past 3 months ? No History of fainting after a prior injection or medical procedure? No- ? If patient has fainted in the past, the CDC recommends sitting or lying down for 15 minutes after the vaccination. [] VERIFICATION color enhanced section Was the answer Yes for any of the above contraindications? No contraindications present. Acceptable to proceed with vaccine. Patient/guardian agrees the above answers are true to the best of their knowledge? Yes Flu vaccine information sheet given? Yes See immunization activity in [facility] for details of immunizations adminstered today. Patient age: [age] year old For The Flu Season 6-35 months old: Fluzone 0.25 ml - IM (Preservative Free) 3 years of age: Fluzone 0.5 ml - IM (Preservative Free) 3 years and older: Fluzone 0.5 ml- IM-(with Preservatives) 65+ years old: 2-49 years old Fluzone High-Dose 0.5 ml - IM (Preservative Free) FLUMIST- intranasal REMEMBER: If patient is less than 9 years of age and this is the first vaccine of Influenza to be received in any flu season, they should receive a second dose in one months time. Referring Provider: SELF [200] Allergies As of Date: 11/27/2017 Noted Allergy Reaction bandaid [Other] 11/20/2004 NEOSPORIN ([id number]*11/20/2004 14 - Other: See Comments Comments: skin blistering Date Reviewed: 11/19/2017 Reviewed by: Lois Hook (Rn) LUDA Lauren - Fully Assessed Reason for Visit: Imm/Inj [58] Cmt: Flu Vaccine Primary Visit Diagnosis:Need for vaccination [Z23] Order(s):INFLUENZA SEASONAL HIGH DOSE AGE 65+ [[id number]] Order #: [id number] Prescriptions as of 11/27/2017 Sig: CYCLOBENZAPRINE 10 MG TABLET Take 0.5-1 tablets by mouth t* POMALYST 2 MG CAPSULE TAKE 1 CAPSULE BY MOUTH EVERY* WARFARIN 3 MG TABLET TAKE 2 TABLETS (6MG) WEDNESDAY A* LEVOTHYROXINE 50 MCG TABLET Take 1 tablet by mouth once d* AMIODARONE 200 MG TABLET TAKE 1 TABLET EVERY DAY MIRTAZAPINE 30 MG TABLET Take 1 tablet by mouth daily * X DEXAMETHASONE 4 MG TABLET Take 5 tablets once the day a* ATORVASTATIN 10 MG TABLET TAKE 1 TABLET EVERY DAY POLYETHYLENE GLYCOL 3350 17 G* Take 17 g by mouth once daily* ACETAMINOPHEN 500 MG TABLET Take 1,000 mg by mouth as nee* STOOL SOFTENER ORAL Take 1 tablet by mouth once d* SODIUM CHLORIDE 0.9% FLUSH Start IV as needed for labs o* * TRAMADOL 50 MG TABLET Take 1-2 tablets every 6 hour* Problem List As Of Date 11/27/2017 Noted Resolved Atrial Fibrillation [I48.91] INVALID FOR* Priority: Moderate More... Encounter for Long-Term (Current) Use of Antico*INVALID FOR* Priority: A Pure Hypercholesterolemia [E78.00] INVALID FOR* Priority: A KNEE PAIN - RIGHT [M25.569] INVALID FOR*08/18/2016 Priority: B GENERAL OSTEOARTHROSIS [M15.9] INVALID FOR* BENIGN NEOPLASM LG BOWEL [D12.6] DIVERTICULOSIS OF COLON W/O BLEED [K57.30] Internal hemorrhoids without mention of complic* 12/16/2011 KNEE JOINT REPLACEMENT STATUS [Z96.659] INVALID FOR* Sleep Apnea [G47.30] INVALID FOR* Priority: A More... Fracture of lateral malleolus [S82.63XA] INVALID FOR*08/18/2016 Priority: B More... 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 Vitamin D deficiency [E55.9] INVALID FOR* Esophagitis, unspecified [K20.9] INVALID FOR* Irritated//Inflamed Seborrheic Keratosis [L82.0]INVALID FOR*08/18/2016 Viral wart, unspecified [B07.9] INVALID FOR*08/18/2016 Neoplasm of Uncertain Behavior of skin: R/O Dys*INVALID FOR*08/18/2016 Atypical nevus of face [D22.30] INVALID FOR*08/18/2016 Sebaceous hyperplasia [L73.8] INVALID FOR*08/18/2016 Actinic skin damage [L57.8] INVALID FOR*08/18/2016 Solar lentigo [L81.4] INVALID FOR*08/18/2016 Other seborrheic keratosis [L82.1] INVALID FOR*08/18/2016 Multiple myeloma in relapse (HCC) [C90.02] INVALID FOR* Chronic low back pain [M54.5, G89.29] INVALID FOR* Hypothyroidism, acquired [E03.9] INVALID FOR* Encounter Status:Closed by JHONNY SEGOVIA MA on 11/27/17 PROGRESS Observed: 11/22/2017 Status: COMPLETED Source: [place] 3:33 PM [facility] REPOSITORY HNO ID: [id number] Author: Jhonny Segovia Ma Service: (none) Author Type: (none) Type: Progress Notes Filed: 11/27/2017 9:00 AM Note Text: 77 year old male here for INACTIVATED INFLUENZA VACCINE. [id number] Season Patient is identified by name and date of : Yes [] CONTRAINDICATIONS color enhanced section Age less than 6 months? No Allergy to eggs, chicken, chicken feathers, or chicken dander? No Allergy to thimerosal (a preservative) or formaldehyde, gelatin? No History of severe reaction to any vaccine component or a previous dose of influenza vaccination? No History of Guillain-Garnett Syndrome within 6 weeks after a previous influenza vaccine? No Patient is not moderately or severely ill? No Current temperature greater or equal to 100.4F? No History of Bone Marrow Transplant prior 6 months or solid organ transplant in the past 3 months ? No History of fainting after a prior injection or medical procedure? No- ? If patient has fainted in the past, the CDC recommends sitting or lying down for 15 minutes after the vaccination. [] VERIFICATION color enhanced section Was the answer Yes for any of the above contraindications? No contraindications present. Acceptable to proceed with vaccine. Patient/guardian agrees the above answers are true to the best of their knowledge? Yes Flu vaccine information sheet given? Yes See immunization activity in [facility] for details of immunizations adminstered today. Patient age: [age] year old For The 7318-3528 Flu Season 6-35 months old: Fluzone 0.25 ml - IM (Preservative Free) 3 years of age: Fluzone 0.5 ml - IM (Preservative Free) 3 years and older: Fluzone 0.5 ml- IM-(with Preservatives) 65+ years old: 2-49 years old Fluzone High-Dose 0.5 ml - IM (Preservative Free) FLUMIST- intranasal REMEMBER: If patient is less than 9 years of age and this is the first vaccine of Influenza to be received in any flu season, they should receive a second dose in one months time. KAPPA/ALVARADO,FREE,SER Collected: Status: F Source: [place] 11/19/2017 8:33 AM [facility] REPOSITORY TYPE CODE TESTS RESULT OUT OF REFERENCE UNITS RANGE LAB FKAPS 3.30-19.40 mg/L High [place], 61.1 Free, Serum Result Comment: Rarely, increased serum free light chains values may not be detected due to antigen excess phenomenon. Results should always be correlated with other laboratory results and clinical findings. LAB FLAMS 5.7-26.3 mg/L Lambda, Free, 9.9 Serum Result Comment: Rarely, increased serum free light chains values may not be detected due to antigen excess phenomenon. Results should always be correlated with other laboratory results and clinical findings. LAB KLRAT 0.26-1.65 High K/L Ratio, 6.17 Serum Performed By: #### KLFRS, SEPG, MPASRM #### [facility] [address] [address] PROTEIN ELECTROPHOR. Collected: 11/19/2017 Status: F Source: [place] 8:33 AM [facility] REPOSITORY TYPE CODE TESTS RESULT OUT OF REFERENCE UNITS RANGE LAB TPSPE 6.0-8.4 g/dL Total Protein, Low SPE 5.1 LAB ALBE 3.37-4.23 gm/dL Albumin Low 3.05 LAB A1GL 0.18-0.31 gm/dL Alpha 1 Globulin 0.28 LAB A2GL 0.52-0.97 gm/dL Alpha 2 Globulin 0.77 LAB BEGL 0.84-1.36 gm/dL Beta Globulin Low 0.70 LAB GAGL 0.70-1.44 gm/dL Gamma Globulin Low 0.30 LAB SPEINT Interpretation SEE COMMENT Result Comment: An M protein is identified on protein electrophoresis. See separate immunofixation report for characterization of the M protein. LAB LOC M Protein Gamma Location fraction LAB GPERDL 0.00 gm/dL M Rich 0.08 High Concentratn LAB SPESTF SPE Staff Review Reviewed by Diamante Najera MD ([id number]) Performed By: #### KLFRS, SEPG, MPASRM #### [facility] [address] [place], [place] [address] MONOCLONL PROTEIN,BL Collected: 11/19/2017 Status: F Source: [place] 8:33 AM [facility] REPOSITORY TYPE CODE TESTS RESULT OUT OF REFERENCE UNITS RANGE LAB MPAIGG 717-1411 mg/dL Low MPA Serum 322 IgG LAB MPAIGA 78-391 mg/dL Low MPA Serum 8 IgA LAB MPAIGM 53-334 mg/dL Low MPA Serum 14 IgM LAB MPAK 534-1267 mg/dL Serum (NOTE) [place] Result Comment: [place] result =85 mg/dL. Disregard [facility] reference range. [employer] [place] Reference Range: 176-443 mg/dL Test performed by: [email or web address], [place], [place] This assay provides a measurement of the total kappa and the total lambda light chains, i.e., the amount of free (unattached) light chain in circulation and the amount of light chain linked to heavy chain in intact immunoglobulin molecules. Assays for serum free light chain only, kappa and lambda with ratio, may be more useful in evaluating and managing light chain gammopathies including those associated with myeloma, lymphoproliferative disorders, and amyloidosis. Results from the [facility] assay cannot be compared directly with previously generated results. LAB MPAL 253-653 mg/dL Serum Lambda (NOTE) Result Comment: Lambda result =27 mg/dL. Disregard [facility] reference range. [facility] Lambda Reference Range: 91-240 mg/dL Test performed by: [email or web address], [place], [place] This assay provides a measurement of the total kappa and the total lambda light chains, i.e., the amount of free (unattached) light chain in circulation and the amount of light chain linked to heavy chain in intact immunoglobulin molecules. Assays for serum free light chain only, kappa and lambda with ratio, may be more useful in evaluating and managing light chain gammopathies inlcuding those associated with myeloma, lymphoproliferative disorders, and amyloidosis. Results from the [facility] assay cannot be compared directly with previously generated results. LAB MPAKL 1-3 MPA Klaudia/Louis Ratio (NOTE) Result Comment: [place]/Lambda ratio = 3.15 Disregard [facility] reference range. [facility] [place]/Lambda Ratio Reference Range: 1.29-2.55 Test performed by: [email or web address], [place], [place] This assay provides a measurement of the total kappa and the total lambda light chains, i.e., the amount of free (unattached) light chain in circulation and the amount of light chain linked to heavy chain in intact immunoglobulin molecules. Assays for the serum free light chain only, kappa and lambda with ratio, may be more useful in evaluating and managing light chain gammopathies including those associated with myeloma, lymphoproliferative disorders, and amyloidosis. Results from the [facility] assay cannot be compared directly with previously generated results. LAB MPAR No M protein is identified. MPA Result Abnormal M protein is Alert present. LAB INTP MPA Interpretation SEE COMMENT Result Comment: Atypical restricted bands are present in the IgG and kappa regions. Consistent with IgG kappa monoclonal gammopathy. LAB MPASTF Reviewed by Diamante Staff Review MD Dania ([id number]) Performed By: #### KLFRS, MICHAELG, MPASRM #### [facility] [address], [place] [address] PROGRESS Observed: 11/18/2017 Status: COMPLETED Source: [place] 8:40 AM [facility] REPOSITORY HNO ID: [id number] Author: Harsh Terry Service: (none) Author Type: Physician Type: Progress Notes Filed: 11/18/2017 9:03 AM Note Text: Diagnosis: 1) [place] light chain only multiple myeloma. HPI: The patient is a 77 yo male who was evaluated for pain in the right shoulder in April of 2011. Initially he had pain across the top of the shoulder. The onset was following lifting some luggage when he was on a cruise. He underwent an injection which didn't help the pain. He also had plain films which didn't show any significant bony pathology. He was referred to an orthopedic surgeon who ordered an MRI of the shoulder on 06/29/11. The study revealed multiple metastatic deposits throughout the shoulder girdle, involving the visualized humerus, scapula and clavicle. There was a large expansile lesion within the scapula extending into the periscapular soft tissues along the deep and superficial surface there was also a large expansile lesion of the distal clavicle. Work up has revealed kappa light chain multiple myeloma. Previous therapy: 1) VMP x3 cycles. Therapy was held due to worsening fatigue and neuropathy. He also had significant difficulty with constipation throughout his treatment course. Laboratory analysis revealed marked reduction in serum kappa light chain. 2) Velcade/dex (day 1, 8 and 15 every 28 days). Began 11/06/2014. Revlimid 15 mg days 1-21 added 06/2015. PD 04/2017. Current therapy: 1) Daratumumab/Pomalyst/dex. Presents for ongoing oncologic management. Interim history: He missed about 2 doses of dexamethasone this past cycle. He was a little confused as to when he should be taking it. He has no side effects from daratumumab or Pomalyst. Energy level is good and he still enjoys doing work around the house and in the yard. He still limited and very frustrated by his lower back pain. His secondary to degenerative changes and he recently saw a back surgeon which she said was a waste of time. No unusual bleeding or unexplained bruising. Feet and lower extremity neuropathy stable. PMH, medications and allergies as below personally reviewed by me today. Any changes documented in appropriate section. ROS: Constitutional: Denies episodes of fever and night sweats. Normal appetite. Neuro: Denies METZGER, vertigo, dizziness and imbalance. HEENT: No recent change in voice, vision or hearing. Resp: Denies cough, wheeze and hemoptysis. Denies shortness of breath at rest. CVS: Denies exertional chest pain, PND, orthopnea and LE edema. GI: Denies dysgeusia. Denies symptoms of stomatitis. Denies dysphagia and odynophagia. Denies reflux, n/v, change in bowel habits and abdominal pain. : Denies dysuria or gross hematuria. No symptoms of bladder outlet obstruction. Endo: Denies hot flashes. Denies polyuria and polydipsia. Denies heat and cold intolerance. Musculoskeletal: See above. Derm: Denies rash. Denies jaundice and diffuse pruritis. Heme: Denies unusual bleeding and unexplained bruising. Psych: Normal mood. PHYSICAL EXAM: Vitals: Blood pressure 107/61, pulse 85, temperature 36.8 ?C (98.3 ?F), temperature source Temporal Artery, weight 104.3 kg (230 lb). Well-appearing and in no acute distress. EYES: Sclerae are anicteric bilaterally. NECK: Supple. LYMPHATIC: There is no palpable cervical, supraclavicular adenopathy. RESPIRATORY: Normal air entry. CVS: Regular rhythm. ABDOMEN: The abdomen is nondistended. There is no organomegaly. No tenderness. Extremities: Trace edema both ankles/distal lower extremities-stable. SKIN: No rash. 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 No focal motor weakness. ASSESSMENT/PLAN: 1) Multiple myeloma. Light chain only disease. Relapsed with increase in serum kappa light chain and very small amount kappa in 24 hour urine. -Tolerating Pomalyst and daratumumab very well. No untoward side effect. -Reviewed dexamethasone scheduling with him. He will be taking once a week on Tuesdays. Plan: -Continue daratumumab. On treatment days, he will receive dexamethasone is a 20 mg pre-infusion medication. He will take 20 mg by mouth on the in-between weeks. -Continue Pomalyst. -Continue Zometa every 3 months. -Monthly OV with myeloma lab assessment. 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 Plan: -Continue physical therapy. -Trial of Flexeril. Harsh Terry DO CNOVSP Observed: 11/18/2017 Status: COMPLETED Source: [place] 8:30 AM [facility] REPOSITORY Visit (SP) Office ([place]) GALE VALDEZ ([id number]) [address] [facility] Date Time Provider Department 11/18/17 8:30 HARSH ADKINS During your visit today, we recorded the following information about you: Temperature Pulse Blood pressure Weight 98.3 degrees 85/minute 107/61 104.3 kg Harsh Terry DO 11/18/2017 9:03 AM Signed Diagnosis: 1) [place] light chain only multiple myeloma. HPI: The patient is a 77 yo male who was evaluated for pain in the right shoulder in April of 2011. Initially he had pain across the top of the shoulder. The onset was following lifting some luggage when he was on a cruise. He underwent an injection which didn't help the pain. He also had plain films which didn't show any significant bony pathology. He was referred to an orthopedic surgeon who ordered an MRI of the shoulder on 06/29/11. The study revealed multiple metastatic deposits throughout the shoulder girdle, involving the visualized humerus, scapula and clavicle. There was a large expansile lesion within the scapula extending into the periscapular soft tissues along the deep and superficial surface there was also a large expansile lesion of the distal clavicle. Work up has revealed kappa light chain multiple myeloma. Previous therapy: 1) VMP x3 cycles. Therapy was held due to worsening fatigue and neuropathy. He also had significant difficulty with constipation throughout his treatment course. Laboratory analysis revealed marked reduction in serum kappa light chain. 2) Velcade/dex (day 1, 8 and 15 every 28 days). Began 11/06/2014. Revlimid 15 mg days 1-21 added 06/2015. PD 04/2017. Current therapy: 1) Daratumumab/Pomalyst/dex. Presents for ongoing oncologic management. Interim history: He missed about 2 doses of dexamethasone this past cycle. He was a little confused as to when he should be taking it. He has no side effects from daratumumab or Pomalyst. Energy level is good and he still enjoys doing work around the house and in the yard. He still limited and very frustrated by his lower back pain. His secondary to degenerative changes and he recently saw a back surgeon which she said was a waste of time. No unusual bleeding or unexplained bruising. Feet and lower extremity neuropathy stable. PMH, medications and allergies as below personally reviewed by me today. Any changes documented in appropriate section. ROS: Constitutional: Denies episodes of fever and night sweats. Normal appetite. Neuro: Denies METZGER, vertigo, dizziness and imbalance. HEENT: No recent change in voice, vision or hearing. Resp: Denies cough, wheeze and hemoptysis. Denies shortness of breath at rest. CVS: Denies exertional chest pain, PND, orthopnea and LE edema. GI: Denies dysgeusia. Denies symptoms of stomatitis. Denies dysphagia and odynophagia. Denies reflux, n/v, change in bowel habits and abdominal pain. : Denies dysuria or gross hematuria. No symptoms of bladder outlet obstruction. Endo: Denies hot flashes. Denies polyuria and polydipsia. Denies heat and cold intolerance. Musculoskeletal: See above. Derm: Denies rash. Denies jaundice and diffuse pruritis. Heme: Denies unusual bleeding and unexplained bruising. Psych: Normal mood. PHYSICAL EXAM: Vitals: Blood pressure 107/61, pulse 85, temperature 36.8 ?C (98.3 ?F), temperature source Temporal Artery, weight 104.3 kg (230 lb). Well-appearing and in no acute distress. EYES: Sclerae are anicteric bilaterally. NECK: Supple. LYMPHATIC: There is no palpable cervical, supraclavicular adenopathy. RESPIRATORY: Normal air entry. CVS: Regular rhythm. ABDOMEN: The abdomen is nondistended. There is no organomegaly. No tenderness. Extremities: Trace edema both ankles/distal lower extremities-stable. SKIN: No rash. 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 No focal motor weakness. ASSESSMENT/PLAN: 1) Multiple myeloma. Light chain only disease. Relapsed with increase in serum kappa light chain and very small amount kappa in 24 hour urine. -Tolerating Pomalyst and daratumumab very well. No untoward side effect. -Reviewed dexamethasone scheduling with him. He will be taking once a week on Tuesdays. Plan: -Continue daratumumab. On treatment days, he will receive dexamethasone is a 20 mg pre-infusion medication. He will take 20 mg by mouth on the in-between weeks. -Continue Pomalyst. -Continue Zometa every 3 months. -Monthly OV with myeloma lab assessment. 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 Plan: -Continue physical therapy. -Trial of Flexeril. Harsh Terry DO Referring Provider: HARSH TERRY [[id number]] Allergies As of Date: 11/18/2017 Noted Allergy Reaction bandaid [Other] 11/20/2004 NEOSPORIN ([id number]*11/20/2004 14 - Other: See Comments Comments: skin blistering Date Reviewed: 11/18/2017 Reviewed by: Delmis Cassidy - Fully Assessed Reason for Visit: Established Patient [175] Primary Visit Diagnosis:Multiple myeloma in relapse (HCC) [C90.02] Other Visit Diagnosis:Chronic low back pain, unspecified back pain laterality, with sciatica presence unspecified [M54.5, G89.29] Order(s):KAPPA/ALVARADO,FREE,SER [SQKLFRS] Order #: [id number] FUTURE MONOCLONAL PROT BLD W/INTERP [SQMPASRM] Order #: [id number] FUTURE PROTEIN ELECTROPHORESIS W/INTERP [SQSEPG] Order #: [id number] FUTURE cyclobenzaprine (FLEXERIL) 10 mg tabletTake 0.5-1 tablets by mouth three times daily as needed.Disp: 60 tabletRfl: 0 Follow-up and Disposition History Recorded Prescriptions as of 11/18/2017 Sig: POMALYST 2 MG CAPSULE TAKE 1 CAPSULE BY MOUTH EVERY* WARFARIN 3 MG TABLET TAKE 2 TABLETS (6MG) WEDNESDAY A* LEVOTHYROXINE 50 MCG TABLET Take 1 tablet by mouth once d* AMIODARONE 200 MG TABLET TAKE 1 TABLET EVERY DAY MIRTAZAPINE 30 MG TABLET Take 1 tablet by mouth daily * DEXAMETHASONE 4 MG TABLET Take 5 tablets once the day a* ATORVASTATIN 10 MG TABLET TAKE 1 TABLET EVERY DAY POLYETHYLENE GLYCOL 3350 17 G* Take 17 g by mouth once daily* ACETAMINOPHEN 500 MG TABLET Take 1,000 mg by mouth as nee* STOOL SOFTENER ORAL Take 1 tablet by mouth once d* SODIUM CHLORIDE 0.9% FLUSH Start IV as needed for labs o* * TRAMADOL 50 MG TABLET Take 1-2 tablets every 6 hour* CYCLOBENZAPRINE 10 MG TABLET Take 0.5-1 tablets by mouth t* Medication notes this encounter WARFARIN 3 MG TABLET >> Delmis Cassidy MA 11/18/2017 8:28 AM >> DELMIS CASSIDY MA [facility] Nov 18, 2017 8:28 AM Taking 6mg on Mon, Fri, Sun and 3mg Tu, Wed, Th, Sat. Problem List As Of Date 11/18/2017 Noted Resolved Atrial Fibrillation [I48.91] INVALID FOR* Priority: Moderate More... Encounter for Long-Term (Current) Use of Antico*INVALID FOR* Priority: A Pure Hypercholesterolemia [E78.00] INVALID FOR* Priority: A KNEE PAIN - RIGHT [M25.569] INVALID FOR*08/18/2016 Priority: B GENERAL OSTEOARTHROSIS [M15.9] INVALID FOR* BENIGN NEOPLASM LG BOWEL [D12.6] DIVERTICULOSIS OF COLON W/O BLEED [K57.30] Internal hemorrhoids without mention of complic* 12/16/2011 KNEE JOINT REPLACEMENT STATUS [Z96.659] INVALID FOR* Sleep Apnea [G47.30] INVALID FOR* Priority: A More... Fracture of lateral malleolus [S82.63XA] INVALID FOR*08/18/2016 Priority: B More... 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 Vitamin D deficiency [E55.9] INVALID FOR* Esophagitis, unspecified [K20.9] INVALID FOR* Irritated//Inflamed Seborrheic Keratosis [L82.0]INVALID FOR*08/18/2016 Viral wart, unspecified [B07.9] INVALID FOR*08/18/2016 Neoplasm of Uncertain Behavior of skin: R/O Dys*INVALID FOR*08/18/2016 Atypical nevus of face [D22.30] INVALID FOR*08/18/2016 Sebaceous hyperplasia [L73.8] INVALID FOR*08/18/2016 Actinic skin damage [L57.8] INVALID FOR*08/18/2016 Solar lentigo [L81.4] INVALID FOR*08/18/2016 Other seborrheic keratosis [L82.1] INVALID FOR*08/18/2016 Multiple myeloma in relapse (HCC) [C90.02] INVALID FOR* Chronic low back pain [M54.5, G89.29] INVALID FOR* Hypothyroidism, acquired [E03.9] INVALID FOR* Encounter Status:Closed by HARSH TERRY DO on 11/18/17 [place] ABS GR + CBC Collected: 11/18/2017 Status: F Source: [place] 8:06 AM [facility] REPOSITORY TYPE CODE TESTS RESULT OUT OF REFERENCE UNITS RANGE LAB WWBC 3.70-11.00 k/uL [place] WBC 5.90 LAB WRBC 4.20-6.00 m/uL Low [place] RBC 3.18 LAB WHGB 13.0-17.0 g/dL Low [place] Hemoglobin 11.6 LAB WHCT 39.0-51.0 % Low [place] Hematocrit 34.0 LAB WMCV 80.0-100.0 fL [place] High MCV 106.9 LAB WMCH 26.0-34.0 pg [place] High MCH 36.5 LAB WMCHC 30.5-36.0 g/dL [place] MCHC 34.1 LAB WRDW 11.5-15.0 % [place] High RDW 17.0 LAB WPLT 150-400 k/uL [place] Platelet Cnt 162 LAB WMPV 9.0-12.7 fL [place] MPV 9.7 Result Comment: Test performed at: [facility], [address] [place] [address] Rd., [place] [address]. LAB ABGRAN 1.45-7.50 k/uL Absol Gran 2.32 Count COMP METABOLIC PANEL Collected: 11/18/2017 Status: F Source: [place] 8:06 AM [facility] REPOSITORY TYPE CODE TESTS RESULT OUT OF REFERENCE UNITS RANGE LAB TP 6.3-8.0 g/dL Low Protein, Total 5.7 LAB ALB 3.9-4.9 g/dL Low Albumin 3.5 LAB CA 8.5-10.2 mg/dL Calcium, Total 9.1 LAB TBIL 0.2-1.3 mg/dL Bilirubin, Total 0.5 LAB ALKP 36-108 U/L Alkaline Phosphatase 56 LAB AST 14-40 U/L AST 26 LAB GLU 74-99 mg/dL Glucose 93 Result Comment: The [place] Diabetes [employer] (ADA) provides guidance for cutoff values for fasting glucose and random glucose. The ADA defines fasting as no caloric intake for at least 8 hours. Fas ting plasma glucose results between 100 to 125 mg/dL indicate increased risk for diabetes (prediabetes). Fasting plasma glucose results greater than or equal to 126 mg/dL meet the criteria for diagnosis of diabetes. In the absence of unequivocal hyperglycemia, results should be confirmed by repeat testing. In a patient with classic symptoms of hyperglycemia or hyperglycemic crisis, random plasma glucose results greater than or equal to 200 mg/dL meet the criteria for diagnosis of diabetes. Reference: Standards of Medical Care in Diabetes 2016, [place] [employer]. Diabetes Care. 2016.39(Suppl 1). LAB BUN 9-24 mg/dL BUN 17 LAB CRET 0.73-1.22 mg/dL Creatinine 0.91 LAB NA 136-144 mmol/L Sodium 142 LAB K 3.7-5.1 mmol/L Potassium 4.6 LAB CL 97-105 mmol/L Chloride High 109 LAB CO2 22-30 mmol/L CO2 23 LAB AGAP 9-18 mmol/L Anion Gap 10 LAB ALT 10-54 U/L ALT 23 LAB GFRAA eGFR- Amer. >60 LAB GFRNAA . eGFR-All Other Races >60 Result Comment: eGFR (Estimated GFR) Units of measure: mL/min/1.73 meters squared eGFR is derived from the reexpressed MDRD Study equation using the following parameters: serum creatinine, age, gender and race. The creatinine assay has been calibrated to be traceable to IDMS. An eGFR <60 mL/min/1.73m2 for >3 months is consistent with chronic kidney disease. Refer to KDOQI guidelines for clinical interpretation. In patients with unstable renal function, e.g. those with acute kidney injury, the eGFR may not accurately reflect actual GFR. Performed By: #### CMP #### [facility] [address] [place], [place] [address] PROGRESS Observed: 11/16/2017 Status: COMPLETED Source: [place] 12:41 PM [facility] REPOSIT[facility] HNO ID: [id number] Author: Chris Cordova Service: (none) Author Type: Physician Type: Progress Notes Filed: 11/16/2017 12:41 PM Note Text: This note was created using NoteWriter. Subjective Gale Valdez is a 77 year old male. Review of Systems Objective There were no vitals taken for this visit. Physical Exam Assessment and Plan agree PROGRESS Observed: 11/16/2017 Status: COMPLETED Source: [place] 11:59 AM [facility] REPOSITORY HNO ID: [id number] Author: Sailaja Razo RN Service: (none) Author Type: (none) Type: Progress Notes Filed: 11/16/2017 12:00 PM Note Text: patient had inr completed at [facility] patients inr is 3.0 (patients inr range is 2.0-3.0) patient is currently taking 6mg Tues,Fri,Sun and 3mg all other days patients last dose change was on 04/30/17 due to a low level of 1.7 (dose at that time was 6mg Tues,Fri and 3mg all other days) patient has had no changes in medication and no missed doses and no change in diet Advised patient to continue on the same dose(s) and that they would only be contacted regarding dosage and follow up instructions after review with provider, if a change is needed. Written instructions given and patient verbalized understanding. Presently scheduled in 3 weeks (12/10/17) for follow up INR. ORTHOPEDIC VISIT Observed: 10/31/2017 Status: F Source: [place] REPORT 11:14 PM [facility] REPOSITORY [facility] Orthopaedics AND Sports Medicine [address] [place] [address] OFFICE VISIT Date of Service: 10/26/17 MR#: [id number] Acct: [id number] Name: GALE VALDEZ Rep #: [id number] : 1940 Provider: Chante Mendoza MD Age/Sex: 77/M Location: [facility] Status: Signed Intake Intake Visit Reasons: LOW BACK PAIN Is patient in pain?: Yes Allergies BANDAIDS Allergy (Uncoded 07/15/16 08:22) Rash Medications Amiodarone HCl 200 mg PO DAILY 11/02/13 [History Confirmed 07/15/16] Atorvastatin Calcium [Lipitor] 10 mg PO QHS 11/02/13 [History Confirmed 07/15/16] Warfarin Sodium [Coumadin] 6 mg PO MOFR 11/02/13 [History Confirmed 07/15/16] Azithromycin [Zithromax] 250 mg PO DAILY #4 tab 07/15/16 [Rx] Dexamethasone [Decadron] 8 mg PO UD 07/15/16 [History Confirmed 07/15/16] Docusate Sodium [Colace] 100 mg PO DAILY 07/15/16 [History Confirmed 07/15/16] Lenalidomide [Revlimid] 15 mg PO DAILY 07/15/16 [History Confirmed 07/15/16] Levothyroxine [Synthroid] 25 mcg PO DAILY 07/15/16 [History Confirmed 07/15/16] Metoprolol Tartrate [Lopressor (Beta Tino)] 12.5 mg PO DAILY 07/15/16 [History Confirmed 07/15/16] Warfarin [Coumadin (PBKC)] 3 mg PO SUTUWETHSA 07/15/16 [History Confirmed 07/15/16] PFSH Social History Smoking Status: Former smoker HPI LOW BACK PAIN: Details: GALE VALDEZ is a 77 year old RHD M here today referred by Dr Maki for low back pain. Patient notes that he has had low back pain for about 6 years. He denies any known injury. Patient has pain over his right low back/hip. He states that he fell down the stairs many years ago and that is where he hit his back. Patient denies any numbness, tingling or radiating pain. 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 Patient had multiple myeloma in 2011 which is in remission. He recurred in 2014 and is on chronic chemotherapy without progression. He denies constitutional symptoms. Patient has increased pain with sitting for long times, waling and lifting. It is improved with resting in a chair. He sees Dr Maki where he has had injections every 3 months and they have all helped regardless of location of the injection, to include SI joint, facet injection and caudal injections. Patient has had an SI joint injection in 07/13/17. His most recent injection last . He has relief for about 2 months. Patient has completed physical therapy which was helpful. He denies bowel or bladder symptoms, gait instability or loss of hand dexterity. He is on coumadin for atrial fibrillation. He is retired. He does not smoke. ROS Const Reports system reviewed and no additional complaints, except as docu Eyes Reports system reviewed and no additional complaints, except as docu ENT Reports system reviewed and no additional complaints, except as docu Card Reports system reviewed and no additional complaints, except as docu Resp Reports system reviewed and no additional complaints, except as docu GI Reports system reviewed and no additional complaints, except as docu Reports system reviewed and no additional complaints, except as docu Musc Reports back pain Skin/Breast Reports system reviewed and no additional complaints, except as docu Neuro Yes system reviewed and no additional complaints, except as docu Psych Reports system reviewed and no additional complaints, except as docu Endo Reports system reviewed and no additional complaints, except as docu Ortho Exam Spine Neuro: Yes Clonus (none bilaterally), Doss's (negative bilaterally), Babinski (downgoing bilaterally) and Straight Leg Raise (negative bilaterally) General: alert, oriented x3 Skin: Yes dysraphism (none) Capillary Refill <2sec: Yes Palpable Pulses: 2+ dp/pt pulses Gait: other (heel and toe stand. ), steppage (slight steppage gait) Motor: muscle tone normal throughout Sensory Exam: no sensory deficits noted DTR's: Rt Triceps: 2+, Lt Triceps: 2+, Rt Biceps: 2+, Lt Biceps: 2+, Rt Brachioradialis: 2+, Lt Brachioradialis: 2+, Rt Patellar: 2+, Lt Patellar: 2+, Rt Ankle: 2+, Lt Ankle: 2+ Plantar Reflexes: Downgoing: bilateral Coordination: Romberg test normal, tandem gait normal (difficulty with tandem gait) SPINE TESTING CERVICAL THORACIC LUMBAR SLR: Negative Iliac Compression: Positive, Right, Le Musculoskeletal General: Yes normal posture Cervical Spine: cervical ROM normal Thoracic/Lumbar Spine: pain with thoraco-lumbar ROM, thoraco- lumbar ROM limited, paraspinal tenderness Sacroiliac joints: bilateral (tenderness) Strength 0=absent - 5=normal Deltoid R (C5): 5, Deltoid L (C5): 5, R Bicep (C5-6): 5, L Bicep (C5-6): 5, R Wrist Extensor (C6): 5, L Wrist Extensor (C6): 5, R Tricep (C7): 5, L Tricep (C7): 5, R Finger Flexors (C8): 5, L Finger Flexors (C8): 5, R First Dorsal Interossei (C8): 5, L First Dorsal Interossei (C8): 5, R Hip Flexor (L1-3): 5, L Hip Flexor (L1-3): 5, R Quadriceps (L2-4): 5, L Quadriceps (L2-4): 5, R Anterior Tibialis (L4-5): 5, R EHL (L5): 4, L EHL (L5): 4, R Hamstrings (L5-S1): 5, L Hamstrings (L5-S1): 5, GS (S1): 5, L GS (S1): 5, R Peroneals (S1): 5, L Peroneals (S1): 5 Assessment AND Plan Problems 1. Chronic bilateral low back pain without sciatica M54.5; G89.29 Plan Imaging: XR lumbar spine 10/26/2017 reveals diffuse spondylosis with slight coronal asymmetry MRI lumbar spine 08/17/2017 reveals diffuse spondylosis with bilateral L5-S1 foraminal stenosis, left L4-5 foraminal stenosis, left L3-4 foraminal stenosis, no significant central stenosis I/R/P: 1. back pain 2. atrial fibrillation on coumadin 3. multiple myeloma on chemotherapy Mr. Valdez presents with nonspecific back pain. He has had improvement with variable types of injections. His imaging finding reveals multilevel foraminal stenosis, but he has not evidence of radicular pain. Recommend continued pain management per Dr. Maki and home exercise program. Follow up as needed. Plan of care discussed. All questions answered. He is in understanding. Orders Orders: Coding Level of Care Code Off vis,new,level 4 Diagnoses Chronic bilateral low back pain without sciatica M54.5; G89.29 Back pain location: low back pain Chronicity: chronic Back pain laterality: bilateral Sciatica presence: without sciatica 10/31/17 2664 <Electronically signed by Chante Mendoza MD> Date Chante Mendoza MD Cosigner Signature: Date (if applicable) CC: Fay Maki MD L/S SPINE MIN 4 Observed: 10/26/2017 Status: F Source: [place] VIEWS 1:48 PM [facility] REPOSITORY [facility] Imaging Services [address] [place] [address] L/S Spine Min 4 Views MR#: [id number] Acct: [id number] Name: GALE VALDEZ Rep #: [id number] : 1940 M 77 From: Chacho Smith MD PCP: Elle Leger MD Status: REG CLI Study: L/S Spine Min 4 Views Date of Exam: 10/26/17 Exam# [id number] Ordering Dr: Chante Mendoza MD STUDY: X-RAY - LUMBAR SPINE REASON FOR EXAM: Male, 77 years old. Lower back pain. TECHNIQUE: 4 view(s) of the lumbar spine were obtained. COMPARISON: X-ray lumbar spine 06/10/2015, 08/17/2017. FINDINGS: Intra-abdominal, somewhat prominent distributed stool burden of large bowel may reflect underlying constipation. Scattered gas also in the large and small bowel without small bowel dilatation. No visible free air. Moderate aortoiliac atherosclerotic calcifications. Thoracolumbar levoscoliosis apex at T12-L1 with dextroscoliotic recovery curvature across the lower lumbar spine apex at L4-L5. Preserved lordosis. Normal lumbar vertebral body height and alignment. T10-T12 superior plate mild wedging, chronic and stable. Moderately severe to severe disc narrowing at each level of the lower thoracic and lumbar spine with multilevel disc vacuum changes, anterior osteophytes. Most prominent bridging anterior osteophytes the right at L1-L2, L2-L3 and to the left at L4-L5. Multilevel facet arthropathy/hypertrophy. Extension view, no evidence of abnormal motion. Flexion view, no evidence of abnormal motion. RAD/L/S Spine Min 4 Views IMPRESSION: Scoliosis with prominent multilevel lumbar degenerative disc disease and facet arthropathy, with no evidence of abnormal subluxation with flexion and extension. Normal alignment is maintained. Electronically Signed: Chacho Smith, at 14:12 EDT Tel , Service support , CC: Chante Mendoza MD; Elle Leger MD Gut Sorter: Signed PROGRESS Observed: 10/26/2017 Status: COMPLETED Source: [place] 1:27 PM [facility] REPOSITORY HNO ID: [id number] Author: Elle Leger Service: (none) Author Type: Physician Type: Progress Notes Filed: 10/26/2017 1:27 PM Note Text: Noted and agree Elle Leger MD PROGRESS Observed: 10/26/2017 Status: COMPLETED Source: [place] 12:07 PM [facility] REPOSITORY HNO ID: [id number] Author: Nadine Hastings Ma Service: (none) Author Type: (none) Type: Progress Notes Filed: 10/26/2017 1:27 PM Note Text: Pt has been notified and verbalized understanding. This was completed in another encounter. Nadine Hastings Ma PROGRESS Observed: 10/26/2017 Status: COMPLETED Source: [place] 11:53 AM [facility] REPOSITORY HNO ID: [id number] Author: Sailaja Razo RN Service: (none) Author Type: (none) Type: Progress Notes Filed: 10/26/2017 11:54 AM Note Text: patient had inr completed at [facility] patients inr is 2.4 (patients inr range is 2.0-3.0) patient is currently taking 6mg Tues,Fri,Sun and 3mg all other days patients last dose change was on 04/30/17 due to a low level of 1.7 (dose at that time was 6mg Tues,Fri and 3mg all other days) patient has had no changes in medication and no missed doses and no change in diet Advised patient to continue on the same dose(s) and that they would only be contacted regarding dosage and follow up instructions after review with provider, if a change is needed. Written instructions given and patient verbalized understanding. Presently scheduled in 3 weeks (11/16/17) for follow up INR. CNOV Observed: 10/26/2017 Status: COMPLETED Source: [place] 10:20 AM [facility] REPOSITORY Office Visit (FAMPWS) GALE VALDEZ ([id number]) [address] [facility] Date Time Provider Department 10/26/17 10:20 AM [facility] During your visit today, we recorded the following information about you: Temperature Pulse Blood pressure Weight 97.7 degrees 83/minute 132/84 100.7 kg Cornell Carter APRN.CNP 10/26/2017 10:36 AM Signed Chief Complaint Patient presents with: Recheck HPI Gale Valdez is a 77 year old male who presents here today for Above Complaints.. Patient presents to the office for express care follow up for possible arm infection. Was there on 10/21/2017 for this complaint, was started on Keflex for 7 days. Had left forearm bruising, redness. Pondered if it was related to pulling weeds, was exposed to some prickly blueberry bushes ? States that he usually wears arm sleeves for his thin skin. At this time, he is doing much better. There is no weeping. No swelling. Erythema has subsided. No skin warmth. No fevers or chills. Without complaints of chest pain, shortness of breath or leg swelling. Is currently getting treatment for multiple myeloma. Past medical history, appointments, medications, allergies reviewed. Previous Medical History PAST MEDICAL HISTORY Diagnosis Date - KNEE PAIN - RIGHT 11/21/2004 - Atrial fibrillation (HCC) 11/21/2004 - Diverticulosis of colon (without mention of hemorrhage) - Esophagitis, unspecified - group home (current) use of anticoagulants 11/21/2004 - Multiple myeloma, without mention of having achieved remission 2011 - Pure hypercholesterolemia 11/21/2004 - Sleep apnea Previous Surgical History PAST SURGICAL HISTORY Procedure Laterality Date - 24 HR HOLTER_*FL 07/01 - COLONOSCOP W/ OR W/O [facility] SPEC 03/18/05 Colonoscopy - COLONOSCOP W/ OR W/O [facility] SPEC 03/15/2012 Colonoscopy - ECHO HEART, FULL STRESS/REST 07/01 - EGD W/O OR W/BRUSH/WASH 03/15/2012 EGD - LEFT HEART CATH,PERCUTANEOUS 08/01 Moderate scattered plaque, no high-grade lesions - PAST SURGICAL HISTORY OF 2005 TKA (R) -- [facility] - PAST SURGICAL HISTORY OF 03/05/2014 Index AND ring fingers left hand Family History FAMILY HISTORY Problem Relation Age of Onset - Heart Father ?Heart Disease - Heart Mother - Stroke Mother - Aneurysm Brother ? age 46 with ?CO or Aneurysm Patient Allergies ALLERGIES Allergen Reactions - Bandaid [Other] - Neosporin [Neomycin* Other: See Comments skin blistering Current Medications Current Outpatient Prescriptions on File Prior to Visit: POMALYST 2 mg cap capsule TAKE 1 CAPSULE BY MOUTH EVERY DAY FOR 21 DAYS ON THEN 7 DAYS OFF cephALEXin (KEFLEX) 500 mg capsule Take 1 capsule by mouth four times daily for 10 days. FOR 10 DAYS warfarin (COUMADIN) 3 mg tablet Take 6 mg on Tu/Wed/Sun and 3 mg all other days or as directed. levothyroxine (SYNTHROID) 50 mcg tablet Take 1 tablet by mouth once daily. amiodarone (PACERONE) 200 mg tablet TAKE 1 TABLET EVERY DAY mirtazapine (REMERON) 30 mg tablet Take 1 tablet by mouth daily at bedtime. dexamethasone (DECADRON) 4 mg tablet Take 5 tablets once the day after each chemotherapy infusion. atorvastatin (LIPITOR) 10 mg tablet TAKE 1 TABLET EVERY DAY polyethylene glycol 3350 (MIRALAX) 17 gram packet Take 17 g by mouth once daily. as needed acetaminophen (TYLENOL EXTRA STRENGTH) 500 mg tablet Take 1,000 mg by mouth as needed. DOCUSATE CALCIUM (STOOL SOFTENER ORAL) Take 1 tablet by mouth once daily. 0.9% NaCl Start IV as needed for labs or treatment. May flush 10-20ml on IV start or as needed. Discontinue IV on completion of treatment. traMADol 50 mg tablet Take 1-2 tablets every 6 hours as needed for pain. No current facility-administered medications on file prior to visit. Social History Social History Marital status: Spouse name: Marie Years of education: Number of children: 0 Occupational History Occupation Employer Comment [employer] Social History Main Topics Smoking status: Former Smoker Packs/day: 0.00 Years: 15.00 Types: Cigars Quit date: 03/01/1989 Smokeless tobacco: Former User Types: Chew Quit date: 03/01/2003 Comment: Pt smoked cigars on AND off for 15 years, quit in 1989. Alcohol use: Yes Comment: seldom Drug use: No Other Topics Concern Service No Blood Transfusions No Caffeine Concern No Occupational Exposure Yes Comment:some gases before half-way Hobby Hazards No Sleep Concern No Stress Concern Yes Comment:new dx Weight Concern No Special Diet No Back Care No Exercise No Bike Helmet No Seat Belt Yes Self-Exams No Social History Narrative Blood type: O Positive REVIEW OF SYSTEMS: as above ? Reviewed relevant PMHx, PSHx, Social Hx, current medications and allergies. EXAM: BP 132/84 Pulse 83 Temp 36.5 ?C (97.7 ?F) (Tympanic) Wt 100.7 kg (222 lb) BMI 32.78 kg/m? General Appearance: Well appearing, alert, in no acute distress, well-hydrated, well nourished.. Skin: Left forearm has no swelling, erythema, or drainage. His left triceps has a small area, approximately 4 x 4 cm, of erythema, warmth without drainage. No swelling. Overall, skin is thin, bruising present. Lungs: Lungs clear to auscultation. No wheezing, rhonchi, rales. Heart: RRR without murmur, gallop, or rubs. No ectopy. Health Maintenance List DTAP,TDAP,TD(1 - Tdap) due on 10/07/2008 INFLUENZA(1) due on 10/30/2017 DIABETES SCREEN due on 09/22/2020 COLORECTAL CANCER SCREENING,SEE MODIFIER due on 03/15/2022 LIPID SCREEN due on 06/30/2022 ADULT PREVNAR-13 Completed PNEUMOVAX AGE 65 AND OVER WITH 5YR LOOKBACK Completed Data reviewed Component Latest Ref Rng AND Units 10/08/2017 10/21/2017 WBC, Renato 3.70 - 11.00 k/uL 4.55 7.97 RBC, [place] 4.20 - 6.00 m/uL 3.54 (L) 3.55 (L) Hemoglobin, Renato 13.0 - 17.0 g/dL 12.4 (L) 12.9 (L) Hematocrit, [place] 39.0 - 51.0 % 37.8 (L) 37.3 (L) MCV, Renato 80.0 - 100.0 fL 106.8 (H) 105.1 (H) MCH, Renato 26.0 - 34.0 pg 35.0 (H) 36.3 (H) MCHC, Renato 30.5 - 36.0 g/dL 32.8 34.6 RDW, Renato 11.5 - 15.0 % 15.2 (H) 16.2 (H) Platelet Cnt, Renato 150 - 400 k/uL 158 134 (L) MPV, Renato 9.0 - 12.7 fL 10.3 10.7 Absol Gran Count 1.45 - 7.50 k/uL 2.17 5.36 INR (POCT) 0.8 - 1.2 2.4 (H) Internal Quality Check Acceptable ASSESSMENT/PLAN: 1. Cellulitis of skin - ICD9: 682.9, ICD10: L03.90 - At this time, his original area of cellulitis has resolved. There is a small area on the back of his upper arm that is warm, erythematous. We will continue/finish Keflex. I advised him close follow up in office if not resolved or worsening. JUSTIN Mcdermott APRN.CNP 10/26/2017 10:29 AM Signed Follow up in office if left arm swelling, warmth returns. Cornell Carter APRN.CNP Referring Provider: SELF [[id number]] Allergies As of Date: 10/26/2017 Noted Allergy Reaction bandaid [Other] 11/20/2004 NEOSPORIN ([id number]*11/20/2004 14 - Other: See Comments Comments: skin blistering Date Reviewed: 10/26/2017 Reviewed by: Cornell (Meka Carter - Fully Assessed Reason for Visit: Recheck [92] Primary Visit Diagnosis:Cellulitis of skin [L03.90] Prescriptions as of 10/26/2017 Sig: POMALYST 2 MG CAPSULE TAKE 1 CAPSULE BY MOUTH EVERY* CEPHALEXIN 500 MG CAPSULE Take 1 capsule by mouth four * WARFARIN 3 MG TABLET Take 6 mg on /Wed/Sun and* LEVOTHYROXINE 50 MCG TABLET Take 1 tablet by mouth once d* AMIODARONE 200 MG TABLET TAKE 1 TABLET EVERY DAY MIRTAZAPINE 30 MG TABLET Take 1 tablet by mouth daily * DEXAMETHASONE 4 MG TABLET Take 5 tablets once the day a* ATORVASTATIN 10 MG TABLET TAKE 1 TABLET EVERY DAY POLYETHYLENE GLYCOL 3350 17 G* Take 17 g by mouth once daily* ACETAMINOPHEN 500 MG TABLET Take 1,000 mg by mouth as nee* STOOL SOFTENER ORAL Take 1 tablet by mouth once d* SODIUM CHLORIDE 0.9% FLUSH Start IV as needed for labs o* * TRAMADOL 50 MG TABLET Take 1-2 tablets every 6 hour* Problem List As Of Date 10/26/2017 Noted Resolved Atrial Fibrillation [I48.91] INVALID FOR* Priority: Moderate More... Encounter for Long-Term (Current) Use of Antico*INVALID FOR* Priority: A Pure Hypercholesterolemia [E78.00] INVALID FOR* Priority: A KNEE PAIN - RIGHT [M25.569] INVALID FOR*08/18/2016 Priority: B GENERAL OSTEOARTHROSIS [M15.9] INVALID FOR* BENIGN NEOPLASM LG BOWEL [D12.6] DIVERTICULOSIS OF COLON W/O BLEED [K57.30] Internal hemorrhoids without mention of complic* 12/16/2011 KNEE JOINT REPLACEMENT STATUS [Z96.659] INVALID FOR* Sleep Apnea [G47.30] INVALID FOR* Priority: A More... Fracture of lateral malleolus [S82.63XA] INVALID FOR*08/18/2016 Priority: B More... 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 Vitamin D deficiency [E55.9] INVALID FOR* Esophagitis, unspecified [K20.9] INVALID FOR* Irritated//Inflamed Seborrheic Keratosis [L82.0]INVALID FOR*08/18/2016 Viral wart, unspecified [B07.9] INVALID FOR*08/18/2016 Neoplasm of Uncertain Behavior of skin: R/O Dys*INVALID FOR*08/18/2016 Atypical nevus of face [D22.30] INVALID FOR*08/18/2016 Sebaceous hyperplasia [L73.8] INVALID FOR*08/18/2016 Actinic skin damage [L57.8] INVALID FOR*08/18/2016 Solar lentigo [L81.4] INVALID FOR*08/18/2016 Other seborrheic keratosis [L82.1] INVALID FOR*08/18/2016 Multiple myeloma in relapse (HCC) [C90.02] INVALID FOR* Chronic low back pain [M54.5, G89.29] INVALID FOR* Hypothyroidism, acquired [E03.9] INVALID FOR* Other instructions from your clinician: Follow up in office if left arm swelling, warmth returns. Cornell Carter APRN.PHILIP Disposition: Return if symptoms worsen or fail to improve. Follow-up and Disposition History Recorded Encounter Status:Closed by CORNELL CARTER CNP on 10/26/17 PROGRESS Observed: 10/26/2017 Status: COMPLETED Source: [place] 10:14 AM [facility] RE[facility] HNO ID: [id number] Author: Cornell Carter Service: (none) Author Type: Nurse Practitioner Type: Progress Notes Filed: 10/26/2017 10:36 AM Note Text: Chief Complaint Patient presents with: Recheck HPI Gale Valdez is a 77 year old male who presents here today for Above Complaints.. Patient presents to the office for express care follow up for possible arm infection. Was there on 10/21/2017 for this complaint, was started on Keflex for 7 days. Had left forearm bruising, redness. Pondered if it was related to pulling weeds, was exposed to some prickly blueberry bushes ? States that he usually wears arm sleeves for his thin skin. At this time, he is doing much better. There is no weeping. No swelling. Erythema has subsided. No skin warmth. No fevers or chills. Without complaints of chest pain, shortness of breath or leg swelling. Is currently getting treatment for multiple myeloma. Past medical history, appointments, medications, allergies reviewed. Previous Medical History PAST MEDICAL HISTORY Diagnosis Date - KNEE PAIN - RIGHT 11/21/2004 - Atrial fibrillation (HCC) 11/21/2004 - Diverticulosis of colon (without mention of hemorrhage) - Esophagitis, unspecified - group home (current) use of anticoagulants 11/21/2004 - Multiple myeloma, without mention of having achieved remission 2011 - Pure hypercholesterolemia 11/21/2004 - Sleep apnea Previous Surgical History PAST SURGICAL HISTORY Procedure Laterality Date - 24 HR HOLTER_*FL 07/01 - COLONOSCOP W/ OR W/O [facility] SPEC 03/18/05 Colonoscopy - COLONOSCOP W/ OR W/O [facility] SPEC 03/15/2012 Colonoscopy - ECHO HEART, FULL STRESS/REST 07/01 - EGD W/O OR W/BRUSH/WASH 03/15/2012 EGD - LEFT HEART CATH,PERCUTANEOUS 08/01 Moderate scattered plaque, no high-grade lesions - PAST SURGICAL HISTORY OF 2005 TKA (R) -- [facility] - PAST SURGICAL HISTORY OF 03/05/2014 Index AND ring fingers left hand Family History FAMILY HISTORY Problem Relation Age of Onset - Heart Father ?Heart Disease - Heart Mother - Stroke Mother - Aneurysm Brother ? age 46 with ?CO or Aneurysm Patient Allergies ALLERGIES Allergen Reactions - Bandaid [Other] - Neosporin [Neomycin* Other: See Comments skin blistering Current Medications Current Outpatient Prescriptions on File Prior to Visit: POMALYST 2 mg cap capsule TAKE 1 CAPSULE BY MOUTH EVERY DAY FOR 21 DAYS ON THEN 7 DAYS OFF cephALEXin (KEFLEX) 500 mg capsule Take 1 capsule by mouth four times daily for 10 days. FOR 10 DAYS warfarin (COUMADIN) 3 mg tablet Take 6 mg on Tu/Fri/Sun and 3 mg all other days or as directed. levothyroxine (SYNTHROID) 50 mcg tablet Take 1 tablet by mouth once daily. amiodarone (PACERONE) 200 mg tablet TAKE 1 TABLET EVERY DAY mirtazapine (REMERON) 30 mg tablet Take 1 tablet by mouth daily at bedtime. dexamethasone (DECADRON) 4 mg tablet Take 5 tablets once the day after each chemotherapy infusion. atorvastatin (LIPITOR) 10 mg tablet TAKE 1 TABLET EVERY DAY polyethylene glycol 3350 (MIRALAX) 17 gram packet Take 17 g by mouth once daily. as needed acetaminophen (TYLENOL EXTRA STRENGTH) 500 mg tablet Take 1,000 mg by mouth as needed. DOCUSATE CALCIUM (STOOL SOFTENER ORAL) Take 1 tablet by mouth once daily. 0.9% NaCl Start IV as needed for labs or treatment. May flush 10-20ml on IV start or as needed. Discontinue IV on completion of treatment. traMADol 50 mg tablet Take 1-2 tablets every 6 hours as needed for pain. No current facility-administered medications on file prior to visit. Social History Social History Marital status: Spouse name: Marie Years of education: Number of children: 0 Occupational History Occupation Employer Comment [employer] * [employer] Social History Main Topics Smoking status: Former Smoker Packs/day: 0.00 Years: 15.00 Types: Cigars Quit date: 03/01/1989 Smokeless tobacco: Former User Types: Chew Quit date: 03/01/2003 Comment: Pt smoked cigars on AND off for 15 years, quit in 1989. Alcohol use: Yes Comment: seldom Drug use: No Other Topics Concern Service No Blood Transfusions No Caffeine Concern No Occupational Exposure Yes Comment:some gases before half-way Hobby Hazards No Sleep Concern No Stress Concern Yes Comment:new dx Weight Concern No Special Diet No Back Care No Exercise No Bike Helmet No Seat Belt Yes Self-Exams No Social History Narrative Blood type: O Positive REVIEW OF SYSTEMS: as above ? Reviewed relevant PMHx, PSHx, Social Hx, current medications and allergies. EXAM: BP 132/84 Pulse 83 Temp 36.5 ?C (97.7 ?F) (Tympanic) Wt 100.7 kg (222 lb) BMI 32.78 kg/m? General Appearance: Well appearing, alert, in no acute distress, well-hydrated, well nourished.. Skin: Left forearm has no swelling, erythema, or drainage. His left triceps has a small area, approximately 4 x 4 cm, of erythema, warmth without drainage. No swelling. Overall, skin is thin, bruising present. Lungs: Lungs clear to auscultation. No wheezing, rhonchi, rales. Heart: RRR without murmur, gallop, or rubs. No ectopy. Health Maintenance List DTAP,TDAP,TD(1 - Tdap) due on 10/07/2008 INFLUENZA(1) due on 10/30/2017 DIABETES SCREEN due on 09/22/2020 COLORECTAL CANCER SCREENING,SEE MODIFIER due on 03/15/2022 LIPID SCREEN due on 06/30/2022 ADULT PREVNAR-13 Completed PNEUMOVAX AGE 65 AND OVER WITH 5YR LOOKBACK Completed Data reviewed Component Latest Ref Rng AND Units 10/08/2017 10/21/2017 WBC, Renato 3.70 - 11.00 k/uL 4.55 7.97 RBC, Renato 4.20 - 6.00 m/uL 3.54 (L) 3.55 (L) Hemoglobin, Renato 13.0 - 17.0 g/dL 12.4 (L) 12.9 (L) Hematocrit, Rneato 39.0 - 51.0 % 37.8 (L) 37.3 (L) MCV, Renato 80.0 - 100.0 fL 106.8 (H) 105.1 (H) MCH, Renato 26.0 - 34.0 pg 35.0 (H) 36.3 (H) MCHC, [place] 30.5 - 36.0 g/dL 32.8 34.6 RDW, Renato 11.5 - 15.0 % 15.2 (H) 16.2 (H) Platelet Cnt, [place] 150 - 400 k/uL 158 134 (L) MPV, Renato 9.0 - 12.7 fL 10.3 10.7 Absol Gran Count 1.45 - 7.50 k/uL 2.17 5.36 INR (POCT) 0.8 - 1.2 2.4 (H) Internal Quality Check Acceptable ASSESSMENT/PLAN: 1. Cellulitis of skin - ICD9: 682.9, ICD10: L03.90 - At this time, his original area of cellulitis has resolved. There is a small area on the back of his upper arm that is warm, erythematous. We will continue/finish Keflex. I advised him close follow up in office if not resolved or worsening. Cornell Carter APRN.PHILIP PROGRESS Observed: 10/21/2017 Status: COMPLETED Source: [place] 2:30 PM [facility] REPOSITORY HNO ID: [id number] Author: Elle Leger Service: (none) Author Type: Physician Type: Progress Notes Filed: 10/21/2017 3:48 PM Note Text: I agree with the advice given; stay same and recheck in 5 days due to starting on atb. Elle Leger MD PROGRESS Observed: 10/21/2017 Status: COMPLETED Source: [place] 12:13 PM [facility] REPOSITORY HNO ID: [id number] Author: Sailaja Razo RN Service: (none) Author Type: (none) Type: Progress Notes Filed: 10/21/2017 12:15 PM Note Text: patient had inr completed at [facility] patients inr is 2.4 (patients inr range is 2.0-3.0) patient is currently taking 6mg Tues,Thurs,Sun and 3mg all other days patients last dose change was on 04/30/17 due to a low level of 1.7 (dose at that time was 6mg Thurs,Fri and 3mg all other days) patient has had no changes in medication and no missed doses and no change in diet FYI- patient saw UC today for infection on arm and will be starting antibiotic later today Advised patient to continue on the same dose(s) and that they would only be contacted regarding dosage and follow up instructions after review with provider, if a change is needed. Written instructions given and patient verbalized understanding. Presently scheduled in 5 days (10/26/17) for follow up INR since pt will be starting antibiotic. patient also has follow up schedule with Leni Carter this day PROGRESS Observed: 10/21/2017 Status: COMPLETED Source: [place] 11:02 AM [facility] REPOSITORY HNO ID: [id number] Author: Chito Palm Service: (none) Author Type: Nurse Practitioner Type: Progress Notes Filed: 10/21/2017 11:32 AM Note Text: Subjective HPI Patient presents with: left forearm bruising and redness: thought something happened 2 days ago pulling weeds but arm did not start hurting until yesterday Pt on coumadin, hx of afib, last INR 09/22. 3.3 PMH-Multiple Myeloma Denies any otc treatment for symptoms. ROS All other reviewed and negative other than HPI. PAST MEDICAL HISTORY Diagnosis Date - KNEE PAIN - RIGHT 11/21/2004 - Atrial fibrillation (HCC) 11/21/2004 - Diverticulosis of colon (without mention of hemorrhage) - Esophagitis, unspecified - group home (current) use of anticoagulants 11/21/2004 - Multiple myeloma, without mention of having achieved remission 2011 - Pure hypercholesterolemia 11/21/2004 - Sleep apnea PAST SURGICAL HISTORY Procedure Laterality Date - 24 HR HOLTER_*FL 07/01 - COLONOSCOP W/ OR W/O [facility] SPEC 03/18/05 Colonoscopy - COLONOSCOP W/ OR W/O [facility] SPEC 03/15/2012 Colonoscopy - ECHO HEART, FULL STRESS/REST 07/01 - EGD W/O OR W/BRUSH/WASH 03/15/2012 EGD - LEFT HEART CATH,PERCUTANEOUS 08/01 Moderate scattered plaque, no high-grade lesions - PAST SURGICAL HISTORY OF 2005 TKA (R) -- [facility] - PAST SURGICAL HISTORY OF 03/05/2014 Index AND ring fingers left hand ALLERGIES Bandaid [Other]; Neosporin [[id number]-Wbfwkqeeob-Qnwdqzhtu] MEDICATIONS POMALYST 2 mg cap capsule TAKE 1 CAPSULE BY MOUTH EVERY DAY FOR 21 DAYS ON THEN 7 DAYS OFF warfarin (COUMADIN) 3 mg tablet Take 6 mg on Tu/Wed/Sun and 3 mg all other days or as directed. levothyroxine (SYNTHROID) 50 mcg tablet Take 1 tablet by mouth once daily. amiodarone (PACERONE) 200 mg tablet TAKE 1 TABLET EVERY DAY dexamethasone (DECADRON) 4 mg tablet Take 5 tablets once the day after each chemotherapy infusion. atorvastatin (LIPITOR) 10 mg tablet TAKE 1 TABLET EVERY DAY polyethylene glycol 3350 (MIRALAX) 17 gram packet Take 17 g by mouth once daily. as needed acetaminophen (TYLENOL EXTRA STRENGTH) 500 mg tablet Take 1,000 mg by mouth as needed. DOCUSATE CALCIUM (STOOL SOFTENER ORAL) Take 1 tablet by mouth once daily. 0.9% NaCl Start IV as needed for labs or treatment. May flush 10-20ml on IV start or as needed. Discontinue IV on completion of treatment. traMADol 50 mg tablet Take 1-2 tablets every 6 hours as needed for pain. cephALEXin (KEFLEX) 500 mg capsule Take 1 capsule by mouth four times daily for 10 days. FOR 10 DAYS mirtazapine (REMERON) 30 mg tablet Take 1 tablet by mouth daily at bedtime. FAMILY HISTORY Problem Relation Age of Onset - Heart Father ?Heart Disease - Heart Mother - Stroke Mother - Aneurysm Brother ? age 46 with ?CO or Aneurysm Social History Substance Use Topics - Smoking status: Former Smoker Years: 15.00 Types: Cigars Quit date: 03/01/1989 - Smokeless tobacco: Former User Types: Chew Quit date: 03/01/2003 Comment: Pt smoked cigars on AND off for 15 years, quit in 1989. - Alcohol use Yes Comment: seldom Objective Physical Exam Skin: Nursing note and vitals reviewed. 10/21/2017 labs WBC, Renato 7.97 3.70 - 11.00 k/uL Final [facility] RBC, Renato 3.55 (L) 4.20 - 6.00 m/uL Final [facility] Hemoglobin, Renato 12.9 (L) 13.0 - 17.0 g/dL Final [facility] Hematocrit, [place] 37.3 (L) 39.0 - 51.0 % Final [facility] MCV, [place] 105.1 (H) 80.0 - 100.0 fL Final [facility] MCH, [place] 36.3 (H) 26.0 - 34.0 pg Final [facility] MCHC, [place] 34.6 30.5 - 36.0 g/dL Final [facility] RDW, [place] 16.2 (H) 11.5 - 15.0 % Final [facility] Platelet Cnt, [place] 134 (L) 150 - 400 k/uL Final [facility] MPV, Renato 10.7 ASSESSMENT/PLAN: 1. Cellulitis of skin - ICD9: 682.9, ICD10: L03.90 - Begin treatment with Cephalaxin (Keflex) - Area of cellulitis defined with pen, seek further attention if this area continues to enlarge - Follow up for recheck in three days with PCP, walked to [facility] to set up f/u appt. - Pt is due for INR check, instructed him to go today to complete standing order Prescription instructions reviewed with patient as applicable. Patient advised if symptoms do not improve or if symptoms worsen sooner, to contact their primary care physician. Potential red flag symptoms discussed with the patient. Reviewed appropriate action plan to take if red flag symptoms occur. Patient agreeable to treatment plan. Chito Palm APRN.CNP CNOV Observed: 10/21/2017 Status: COMPLETED Source: [place] 10:30 AM [facility] REPOSITORY Office Visit (WSTR) JASENGALE Aranda ([id number]) 1940 M AN[address] Date Time Provider Department 10/21/17 10:30 AM CHITO PALM (UNDERGROUND HEAVY EQUIPMENT OPERATOR) [facility] During your visit today, we recorded the following information about you: Temperature Pulse Respiration Blood pressure 99.5 degrees 94/minute 16/minute 120/80 Weight 101.2 kg Chito Palm APRN.CNP 10/21/2017 10:41 AM Signed [facility] [address] [place], [place] [address] Emergency Department Diagnosis: Assessment CELLULITIS: Your exam shows you have an infection of the skin called cellulitis. This infection usually develops after an injury, cut, bite, or sting, but may occur without any known cause. Usually there is a localized area of redness, swelling, and pain which gets constantly bigger unless treatment is started. If cellulitis is severe or does not respond to initial treatment, hospital care with antibiotic injections may be needed. Treatment of cellulitis includes antibiotics along with resting and elevating the affected area until the infection improves. You should apply moist, warm compresses to the area for 30 minutes 4 times daily also. Please see your doctor if the pain and swelling from your infection are not better after two days of treatment. Call your doctor or go to the emergency department right away if you develop fever, chills, or other serious problems. You may require a tetanus booster if you are not current with your inmunizations. Chito Palm APRN.CNP 10/21/2017 11:32 AM Signed Subjective HPI Patient presents with: left forearm bruising and redness: thought something happened 2 days ago pulling weeds but arm did not start hurting until yesterday Pt on coumadin, hx of afib, last INR 09/22. 3.3 PMH-Multiple Myeloma Denies any otc treatment for symptoms. ROS All other reviewed and negative other than HPI. 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 11/21/2004 - Multiple myeloma, without mention of having achieved remission 2011 - Pure hypercholesterolemia 11/21/2004 - Sleep apnea PAST SURGICAL HISTORY Procedure Laterality Date - 24 HR HOLTER_*FL 07/01 - COLONOSCOP W/ OR W/O [facility] SPEC 03/18/05 Colonoscopy - COLONOSCOP W/ OR W/O [facility] SPEC 03/15/2012 Colonoscopy - ECHO HEART, FULL STRESS/REST 07/01 - EGD W/O OR W/BRUSH/WASH 03/15/2012 EGD - LEFT HEART CATH,PERCUTANEOUS 08/01 Moderate scattered plaque, no high-grade lesions - PAST SURGICAL HISTORY OF 2005 TKA (R) -- [facility] - PAST SURGICAL HISTORY OF 03/05/2014 Index AND ring fingers left hand ALLERGIES Bandaid [Other]; Neosporin [[id number]] MEDICATIONS POMALYST 2 mg cap capsule TAKE 1 CAPSULE BY MOUTH EVERY DAY FOR 21 DAYS ON THEN 7 DAYS OFF warfarin (COUMADIN) 3 mg tablet Take 6 mg on Tu/Wed/Sun and 3 mg all other days or as directed. levothyroxine (SYNTHROID) 50 mcg tablet Take 1 tablet by mouth once daily. amiodarone (PACERONE) 200 mg tablet TAKE 1 TABLET EVERY DAY dexamethasone (DECADRON) 4 mg tablet Take 5 tablets once the day after each chemotherapy infusion. atorvastatin (LIPITOR) 10 mg tablet TAKE 1 TABLET EVERY DAY polyethylene glycol 3350 (MIRALAX) 17 gram packet Take 17 g by mouth once daily. as needed acetaminophen (TYLENOL EXTRA STRENGTH) 500 mg tablet Take 1,000 mg by mouth as needed. DOCUSATE CALCIUM (STOOL SOFTENER ORAL) Take 1 tablet by mouth once daily. 0.9% NaCl Start IV as needed for labs or treatment. May flush 10-20ml on IV start or as needed. Discontinue IV on completion of treatment. traMADol 50 mg tablet Take 1-2 tablets every 6 hours as needed for pain. cephALEXin (KEFLEX) 500 mg capsule Take 1 capsule by mouth four times daily for 10 days. FOR 10 DAYS mirtazapine (REMERON) 30 mg tablet Take 1 tablet by mouth daily at bedtime. FAMILY HISTORY Problem Relation Age of Onset - Heart Father ?Heart Disease - Heart Mother - Stroke Mother - Aneurysm Brother ? age 46 with ?CO or Aneurysm Social History Substance Use Topics - Smoking status: Former Smoker Years: 15.00 Types: Cigars Quit date: 03/01/1989 - Smokeless tobacco: Former User Types: Chew Quit date: 03/01/2003 Comment: Pt smoked cigars on AND off for 15 years, quit in 1989. - Alcohol use Yes Comment: seldom Objective Physical Exam Skin: Nursing note and vitals reviewed. 10/21/2017 labs WBC, [place] 7.97 3.70 - 11.00 k/uL Final [facility] RBC, [place] 3.55 (L) 4.20 - 6.00 m/uL Final [facility] Hemoglobin, [place] 12.9 (L) 13.0 - 17.0 g/dL Final [facility] Hematocrit, [place] 37.3 (L) 39.0 - 51.0 % Final [facility] MCV, [place] 105.1 (H) 80.0 - 100.0 fL Final [facility] MCH, [place] 36.3 (H) 26.0 - 34.0 pg Final [facility] MCHC, [place] 34.6 30.5 - 36.0 g/dL Final [facility] RDW, [place] 16.2 (H) 11.5 - 15.0 % Final [facility] Platelet Cnt, [place] 134 (L) 150 - 400 k/uL Final [facility] MPV, [place] 10.7 ASSESSMENT/PLAN: 1. Cellulitis of skin - ICD9: 682.9, ICD10: L03.90 - Begin treatment with Cephalaxin (Keflex) - Area of cellulitis defined with pen, seek further attention if this area continues to enlarge - Follow up for recheck in three days with PCP, walked to R to set up f/u appt. - Pt is due for INR check, instructed him to go today to complete standing order Prescription instructions reviewed with patient as applicable. Patient advised if symptoms do not improve or if symptoms worsen sooner, to contact their primary care physician. Potential red flag symptoms discussed with the patient. Reviewed appropriate action plan to take if red flag symptoms occur. Patient agreeable to treatment plan. Chito Palm APRN.RESOLUTION MANAGER Referring Provider: SELF [[id number]] Allergies As of Date: 10/21/2017 Noted Allergy Reaction bandaid [Other] 11/20/2004 NEOSPORIN ([id number]*11/20/2004 14 - Other: See Comments Comments: skin blistering Date Reviewed: 10/21/2017 Reviewed by: Janina Hillman LPN - Fully Assessed Reason for Visit: left forearm bruising and redness [Other] Cmt: thought something happened 2 days ago pulling weeds but arm did not start hurting until yesterday Primary Visit Diagnosis:Cellulitis of skin [L03.90] Order(s):cephALEXin (KEFLEX) 500 mg capsuleTake 1 capsule by mouth four times daily for 10 days. FOR 10 DAYSDisp: 40 capsuleRfl: 0 Prescriptions as of 10/21/2017 Sig: POMALYST 2 MG CAPSULE TAKE 1 CAPSULE BY MOUTH EVERY* WARFARIN 3 MG TABLET Take 6 mg on /Wed/Wed and* LEVOTHYROXINE 50 MCG TABLET Take 1 tablet by mouth once d* AMIODARONE 200 MG TABLET TAKE 1 TABLET EVERY DAY DEXAMETHASONE 4 MG TABLET Take 5 tablets once the day a* ATORVASTATIN 10 MG TABLET TAKE 1 TABLET EVERY DAY POLYETHYLENE GLYCOL 3350 17 G* Take 17 g by mouth once daily* ACETAMINOPHEN 500 MG TABLET Take 1,000 mg by mouth as nee* STOOL SOFTENER ORAL Take 1 tablet by mouth once d* SODIUM CHLORIDE 0.9% FLUSH Start IV as needed for labs o* * TRAMADOL 50 MG TABLET Take 1-2 tablets every 6 hour* CEPHALEXIN 500 MG CAPSULE Take 1 capsule by mouth four * MIRTAZAPINE 30 MG TABLET Take 1 tablet by mouth daily * Problem List As Of Date 10/21/2017 Noted Resolved Atrial Fibrillation [I48.91] INVALID FOR* Priority: Moderate More... Encounter for Long-Term (Current) Use of Antico*INVALID FOR* Priority: A Pure Hypercholesterolemia [E78.00] INVALID FOR* Priority: A KNEE PAIN - RIGHT [M25.569] INVALID FOR*08/18/2016 Priority: B GENERAL OSTEOARTHROSIS [M15.9] INVALID FOR* BENIGN NEOPLASM LG BOWEL [D12.6] DIVERTICULOSIS OF COLON W/O BLEED [K57.30] Internal hemorrhoids without mention of complic* 12/16/2011 KNEE JOINT REPLACEMENT STATUS [Z96.659] INVALID FOR* Sleep Apnea [G47.30] INVALID FOR* Priority: A More... Fracture of lateral malleolus [S82.63XA] INVALID FOR*08/18/2016 Priority: B More... 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 Vitamin D deficiency [E55.9] INVALID FOR* Esophagitis, unspecified [K20.9] INVALID FOR* Irritated//Inflamed Seborrheic Keratosis [L82.0]INVALID FOR*08/18/2016 Viral wart, unspecified [B07.9] INVALID FOR*08/18/2016 Neoplasm of Uncertain Behavior of skin: R/O Dys*INVALID FOR*08/18/2016 Atypical nevus of face [D22.30] INVALID FOR*08/18/2016 Sebaceous hyperplasia [L73.8] INVALID FOR*08/18/2016 Actinic skin damage [L57.8] INVALID FOR*08/18/2016 Solar lentigo [L81.4] INVALID FOR*08/18/2016 Other seborrheic keratosis [L82.1] INVALID FOR*08/18/2016 Multiple myeloma in relapse (HCC) [C90.02] INVALID FOR* Chronic low back pain [M54.5, G89.29] INVALID FOR* Hypothyroidism, acquired [E03.9] INVALID FOR* Other instructions from your clinician: [facility] [address] [place] [address] Emergency Department Diagnosis: Assessment CELLULITIS: Your exam shows you have an infection of the skin called cellulitis. This infection usually develops after an injury, cut, bite, or sting, but may occur without any known cause. Usually there is a localized area of redness, swelling, and pain which gets constantly bigger unless treatment is started. If cellulitis is severe or does not respond to initial treatment, hospital care with antibiotic injections may be needed. Treatment of cellulitis includes antibiotics along with resting and elevating the affected area until the infection improves. You should apply moist, warm compresses to the area for 30 minutes 4 times daily also. Please see your doctor if the pain and swelling from your infection are not better after two days of treatment. Call your doctor or go to the emergency department right away if you develop fever, chills, or other serious problems. You may require a tetanus booster if you are not current with your inmunizations. Prescriptions ordered this encounter Disp Refills Start End CEPHALEXIN 500 MG CAPSULE 40 c* 0 10/21/2017 10/31/2017 Route: ORAL Sig: Take 1 capsule by mouth four times daily for 10 days. FOR 10 DAYS Disposition: Return if symptoms worsen or fail to improve. Follow-up and Disposition History Recorded Encounter Status:Closed by CHITO PALM on 10/21/17 [place] ABS GR + CBC Collected: 10/21/2017 Status: F Source: [place] 7:56 AM [facility] REPOSITORY TYPE CODE TESTS RESULT OUT OF REFERENCE UNITS RANGE LAB WWBC 3.70-11.00 k/uL [place] WBC 7.97 LAB WRBC 4.20-6.00 m/uL Low [place] RBC 3.55 LAB WHGB 13.0-17.0 g/dL Low [place] Hemoglobin 12.9 LAB WHCT 39.0-51.0 % Low [place] Hematocrit 37.3 LAB WMCV 80.0-100.0 fL [place] High MCV 105.1 LAB WMCH 26.0-34.0 pg [place] High MCH 36.3 LAB WMCHC 30.5-36.0 g/dL [place] MCHC 34.6 LAB WRDW 11.5-15.0 % [place] High RDW 16.2 LAB WPLT 150-400 k/uL Low [place] Platelet Cnt 134 LAB WMPV 9.0-12.7 fL [place] MPV 10.7 Result Comment: Test performed at: [facility] [place], [address] [place], [place] [address]. LAB ABGRAN 1.45-7.50 k/uL Absol Gran 5.36 Count CNPN Observed: 10/18/2017 Status: COMPLETED Source: [place] 12:00 AM [facility] REPOSITORY Telephone (HEMAWS) GALE VALDEZ ([id number]) [address] [facility] Date Time Provider Department 10/18/17 HARSH TERRY During your visit today, we recorded the following information about you: Félix Schumacher PSR 10/18/2017 9:00 AM Signed Patient called to try and reschedule his appointment with Dr. Terry on 10/21/2017 at 8:30AM. Patient states that he is scheduled to get some shots in his back that day at the same time and would like to know if Dr. Terry could be open to seeing him later that same day after 11:00 AM. Please advise patient Thanks Félix Schumacher PSR Diamante Mendez Psr 10/18/2017 9:[address] Terry, patient is unable to come in at scheduled OV time on 10/21. Can patient be rescheduled earlier this week, or prior to next cycle? Please advise. Harsh Terry DO 10/18/2017 9:16 AM Signed Okay to skip seeing me this cycle and OV next cycle. DO Christina Martinez PSR 10/19/2017 9:59 AM Signed Patient called back in and OV was rescheduled per instructions below. Patient's next OV is scheduled for 11/18/17. Christina Johnston PSR [place] 10/19/2017 10:21 AM Signed The appt on 11/18 does not work for the patient. He needs a call back to reschedule. Christina Johnston IQRAR 10/19/2017 10:32 AM Signed Called patient back and 11/18 appointment is fine. He has a conflict with a different appointment, which will be addressed in a different TE. Christina Preston PSR Allergies As of Date: 10/18/2017 Noted Allergy Reaction bandaid [Other] 11/20/2004 NEOSPORIN ([id number]*11/20/2004 14 - Other: See Comments Comments: skin blistering Date Reviewed: 10/08/2017 Reviewed by: Ban Grant, RN, RN - Fully Assessed Reason for Visit: Appointment [186] Prescriptions as of 10/18/2017 Sig: POMALYST 2 MG CAPSULE TAKE 1 CAPSULE BY MOUTH EVERY* WARFARIN 3 MG TABLET Take 6 mg on /Wed/Wed and* LEVOTHYROXINE 50 MCG TABLET Take 1 tablet by mouth once d* AMIODARONE 200 MG TABLET TAKE 1 TABLET EVERY DAY MIRTAZAPINE 30 MG TABLET Take 1 tablet by mouth daily * DEXAMETHASONE 4 MG TABLET Take 5 tablets once the day a* ATORVASTATIN 10 MG TABLET TAKE 1 TABLET EVERY DAY POLYETHYLENE GLYCOL 3350 17 G* Take 17 g by mouth once daily* ACETAMINOPHEN 500 MG TABLET Take 1,000 mg by mouth as nee* STOOL SOFTENER ORAL Take 1 tablet by mouth once d* SODIUM CHLORIDE 0.9% FLUSH Start IV as needed for labs o* * TRAMADOL 50 MG TABLET Take 1-2 tablets every 6 hour* Problem List As Of Date 10/18/2017 Noted Resolved Atrial Fibrillation [I48.91] INVALID FOR* Priority: Moderate More... Encounter for Long-Term (Current) Use of Antico*INVALID FOR* Priority: A Pure Hypercholesterolemia [E78.00] INVALID FOR* Priority: A KNEE PAIN - RIGHT [M25.569] INVALID FOR*08/18/2016 Priority: B GENERAL OSTEOARTHROSIS [M15.9] INVALID FOR* BENIGN NEOPLASM LG BOWEL [D12.6] DIVERTICULOSIS OF COLON W/O BLEED [K57.30] Internal hemorrhoids without mention of complic* 12/16/2011 KNEE JOINT REPLACEMENT STATUS [Z96.659] INVALID FOR* Sleep Apnea [G47.30] INVALID FOR* Priority: A More... Fracture of lateral malleolus [S82.63XA] INVALID FOR*08/18/2016 Priority: B More... 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 Vitamin D deficiency [E55.9] INVALID FOR* Esophagitis, unspecified [K20.9] INVALID FOR* Irritated//Inflamed Seborrheic Keratosis [L82.0]INVALID FOR*08/18/2016 Viral wart, unspecified [B07.9] INVALID FOR*08/18/2016 Neoplasm of Uncertain Behavior of skin: R/O Dys*INVALID FOR*08/18/2016 Atypical nevus of face [D22.30] INVALID FOR*08/18/2016 Sebaceous hyperplasia [L73.8] INVALID FOR*08/18/2016 Actinic skin damage [L57.8] INVALID FOR*08/18/2016 Solar lentigo [L81.4] INVALID FOR*08/18/2016 Other seborrheic keratosis [L82.1] INVALID FOR*08/18/2016 Multiple myeloma in relapse (HCC) [C90.02] INVALID FOR* Chronic low back pain [M54.5, G89.29] INVALID FOR* Hypothyroidism, acquired [E03.9] INVALID FOR* Encounter Status:Closed by CHRISTINA AKERS on 10/19/17 [place] ABS GR + CBC Collected: 10/08/2017 Status: F Source: [place] 8:04 AM [facility] REPOSITORY TYPE CODE TESTS RESULT OUT OF REFERENCE UNITS RANGE LAB WWBC 3.70-11.00 k/uL [place] WBC 4.55 LAB WRBC 4.20-6.00 m/uL Low [place] RBC 3.54 LAB WHGB 13.0-17.0 g/dL Low [place] Hemoglobin 12.4 LAB WHCT 39.0-51.0 % Low [place] Hematocrit 37.8 LAB WMCV 80.0-100.0 fL [place] High MCV 106.8 LAB WMCH 26.0-34.0 pg [place] High MCH 35.0 LAB WMCHC 30.5-36.0 g/dL [place] MCHC 32.8 LAB WRDW 11.5-15.0 % [place] High RDW 15.2 LAB WPLT 150-400 k/uL [place] Platelet Cnt 158 LAB WMPV 9.0-12.7 fL [place] MPV 10.3 Result Comment: Test performed at: [facility], [address] [place] [address]. LAB ABGRAN 1.45-7.50 k/uL Absol Gran 2.17 Count PT D/C SUMMARY (1) Observed: 10/06/2017 Status: F Source: [place] 8:51 AM [facility] REPOSITORY [facility] [address] [place] [address]. [address] [place] [address] Fax REHABILITATION SERVICES DISCHARGE SUMMARY MR#: [id number] Acct: [id number] Name: GALE VALDEZ Rep #: [id number] : 1940 77 From: Bryce Daniels PT, ATC Referring Dr.: Harsh Terry DO Status: REG RCR Insurance: MEDICARE PART A B [employer] HP - PT D/C Summary It has been my pleasure to treat GALE VALDEZ under orders from Harsh Terry, for the diagnosis of LBP for a total of 11 visit(s). Discharge Date: Please see the following information for a summary of their discharge status. - Subjective Subjective: Pt reports he felt good after last Rx, but sore for the past 2 days - Pain LBP Pain Intensity (Out of 10): 7 - Overall Improvement % Improvement: 30 - Objective Objective/Function: Pt entered the clinic with 7/10 LBP, decreased to 3/10 with HEP. B LE strength now 5/5. Pt is I with HEP. Rx goals achieved with exception to decreasing LBP x 50% - Goals Goal 1:: Decrease LBP x 50% to aid with walking Goal Progress: Progressing Goal 2:: Increase B LE strength x 1 grade to aid with stair negotiation Goal Progress: Goal Met Goal 3:: I with HEP Goal Progress: Goal Met - Plan Plan: Discharge - D/C Information If there are questions or concerns regarding this patient's physical therapy, please feel free to call me at [phone]. Thank you for the referral of this patient. Sincerely, Bryce Daniels, PT, <Electronically signed by Bryce Daniels PT, ATC> 10/06/17 0851 CC: Elle Leger MD; Harsh Terry DO [facility] Signed PROGRESS Observed: 09/22/2017 Status: COMPLETED Source: [place] 10:22 AM [facility] REPOSITORY HNO ID: [id number] Author: Harsh Terry Service: (none) Author Type: Physician Type: Progress Notes Filed: 09/22/2017 10:42 AM Note Text: Diagnosis: 1) [place] light chain only multiple myeloma. HPI: The patient is a 77 yo male who was evaluated for pain in the right shoulder in April of 2011. Initially he had pain across the top of the shoulder. The onset was following lifting some luggage when he was on a cruise. He underwent an injection which didn't help the pain. He also had plain films which didn't show any significant bony pathology. He was referred to an orthopedic surgeon who ordered an MRI of the shoulder on 06/29/11. The study revealed multiple metastatic deposits throughout the shoulder girdle, involving the visualized humerus, scapula and clavicle. There was a large expansile lesion within the scapula extending into the periscapular soft tissues along the deep and superficial surface there was also a large expansile lesion of the distal clavicle. Work up has revealed kappa light chain multiple myeloma. Previous therapy: 1) VMP x3 cycles. Therapy was held due to worsening fatigue and neuropathy. He also had significant difficulty with constipation throughout his treatment course. Laboratory analysis revealed marked reduction in serum kappa light chain. 2) Velcade/dex (day 1, 8 and 15 every 28 days). Began 11/06/2014. Revlimid 15 mg days 1-21 added 06/2015. PD 04/2017. Current therapy: 1) Daratumumab/Pomalyst/dex. Presents for ongoing oncologic management. Interim history: Began physical therapy for the lower back pain. Last couple days this been getting worse but was helped at first by physical therapy. Symptoms of neuropathy in his feet are improved. No side effects from Pomalyst or dorsiflex. No unusual bleeding or unexplained bruising. PMH, medications and allergies as below personally reviewed by me today. Any changes documented in appropriate section. ROS: Constitutional: Denies episodes of fever and night sweats. Normal appetite. Neuro: Denies METZGER, vertigo, dizziness and imbalance. HEENT: No recent change in voice, vision or hearing. Resp: Denies cough, wheeze and hemoptysis. Denies shortness of breath at rest. CVS: Denies exertional chest pain, PND, orthopnea and LE edema. GI: Denies dysgeusia. Denies symptoms of stomatitis. Denies dysphagia and odynophagia. Denies reflux, n/v, change in bowel habits and abdominal pain. : Denies dysuria or gross hematuria. No symptoms of bladder outlet obstruction. Endo: Denies hot flashes. Denies polyuria and polydipsia. Denies heat and cold intolerance. Musculoskeletal: See above. Derm: Denies rash. Denies jaundice and diffuse pruritis. Heme: Denies unusual bleeding and unexplained bruising. Psych: Normal mood. PHYSICAL EXAM: Vitals: Blood pressure 107/69, pulse 74, temperature 36.6 ?C (97.8 ?F), temperature source Temporal Artery, weight 100.2 kg (221 lb). Well-appearing and in no acute distress. EYES: Sclerae are anicteric bilaterally. NECK: Supple. LYMPHATIC: There is no palpable cervical, supraclavicular adenopathy. RESPIRATORY: Normal air entry. CVS: Regular rhythm. ABDOMEN: The abdomen is nondistended. There is no organomegaly. No tenderness. Extremities: Trace edema both ankles/distal lower extremities-stable. SKIN: No rash. 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 No focal motor weakness. ASSESSMENT/PLAN: 1) Multiple myeloma. Light chain only disease. Relapsed with increase in serum kappa light chain and very small amount kappa in 24 hour urine. -Tolerating Pomalyst and daratumumab very well. No untoward side effect. -Recent light chain decreased. -KP data indicates no distress. Plan: -Continue daratumumab. On treatment days, he will receive dexamethasone is a 20 mg pre-infusion medication. He does not have to take it the day after. He will take 20 mg by mouth on the in-between weeks. -Continue Pomalyst. -Continue Zometa every 3 months. -Monthly OV with myeloma lab assessment. 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 Plan: -Continue physical therapy. -He's going to contact [facility] to see if he can get a appointment sooner to see a back surgeon. Harsh Terry DO CNOVSP Observed: 09/22/2017 Status: COMPLETED Source: [place] 10:10 AM [facility] REPOSITORY Visit (SP) Office (HERRERA) GALE VALDEZ ([id number]) [address] [facility] Date Time Provider Department 09/22/17 10:10 AM HARSH TERRY During your visit today, we recorded the following information about you: Temperature Pulse Blood pressure Weight 97.8 degrees 74/minute 107/69 100.2 kg Harsh Terry DO 09/22/2017 10:42 AM Signed Diagnosis: 1) [place] light chain only multiple myeloma. HPI: The patient is a 77 yo male who was evaluated for pain in the right shoulder in April of 2011. Initially he had pain across the top of the shoulder. The onset was following lifting some luggage when he was on a cruise. He underwent an injection which didn't help the pain. He also had plain films which didn't show any significant bony pathology. He was referred to an orthopedic surgeon who ordered an MRI of the shoulder on 06/29/11. The study revealed multiple metastatic deposits throughout the shoulder girdle, involving the visualized humerus, scapula and clavicle. There was a large expansile lesion within the scapula extending into the periscapular soft tissues along the deep and superficial surface there was also a large expansile lesion of the distal clavicle. Work up has revealed kappa light chain multiple myeloma. Previous therapy: 1) VMP x3 cycles. Therapy was held due to worsening fatigue and neuropathy. He also had significant difficulty with constipation throughout his treatment course. Laboratory analysis revealed marked reduction in serum kappa light chain. 2) Velcade/dex (day 1, 8 and 15 every 28 days). Began 11/06/2014. Revlimid 15 mg days 1-21 added 06/2015. PD 04/2017. Current therapy: 1) Daratumumab/Pomalyst/dex. Presents for ongoing oncologic management. Interim history: Began physical therapy for the lower back pain. Last couple days this been getting worse but was helped at first by physical therapy. Symptoms of neuropathy in his feet are improved. No side effects from Pomalyst or dorsiflex. No unusual bleeding or unexplained bruising. PMH, medications and allergies as below personally reviewed by me today. Any changes documented in appropriate section. ROS: Constitutional: Denies episodes of fever and night sweats. Normal appetite. Neuro: Denies METZGER, vertigo, dizziness and imbalance. HEENT: No recent change in voice, vision or hearing. Resp: Denies cough, wheeze and hemoptysis. Denies shortness of breath at rest. CVS: Denies exertional chest pain, PND, orthopnea and LE edema. GI: Denies dysgeusia. Denies symptoms of stomatitis. Denies dysphagia and odynophagia. Denies reflux, n/v, change in bowel habits and abdominal pain. : Denies dysuria or gross hematuria. No symptoms of bladder outlet obstruction. Endo: Denies hot flashes. Denies polyuria and polydipsia. Denies heat and cold intolerance. Musculoskeletal: See above. Derm: Denies rash. Denies jaundice and diffuse pruritis. Heme: Denies unusual bleeding and unexplained bruising. Psych: Normal mood. PHYSICAL EXAM: Vitals: Blood pressure 107/69, pulse 74, temperature 36.6 ?C (97.8 ?F), temperature source Temporal Artery, weight 100.2 kg (221 lb). Well-appearing and in no acute distress. EYES: Sclerae are anicteric bilaterally. NECK: Supple. LYMPHATIC: There is no palpable cervical, supraclavicular adenopathy. RESPIRATORY: Normal air entry. CVS: Regular rhythm. ABDOMEN: The abdomen is nondistended. There is no organomegaly. No tenderness. Extremities: Trace edema both ankles/distal lower extremities-stable. SKIN: No rash. 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 No focal motor weakness. ASSESSMENT/PLAN: 1) Multiple myeloma. Light chain only disease. Relapsed with increase in serum kappa light chain and very small amount kappa in 24 hour urine. -Tolerating Pomalyst and daratumumab very well. No untoward side effect. -Recent light chain decreased. -KP data indicates no distress. Plan: -Continue daratumumab. On treatment days, he will receive dexamethasone is a 20 mg pre-infusion medication. He does not have to take it the day after. He will take 20 mg by mouth on the in-between weeks. -Continue Pomalyst. -Continue Zometa every 3 months. -Monthly OV with myeloma lab assessment. 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 Plan: -Continue physical therapy. -He's going to contact [facility] to see if he can get a appointment sooner to see a back surgeon. Harsh Terry DO Referring Provider: HARSH TERRY [[id number]] Allergies As of Date: 09/22/2017 Noted Allergy Reaction bandaid [Other] 11/20/2004 NEOSPORIN ([id number]*11/20/2004 14 - Other: See Comments Comments: skin blistering Date Reviewed: 09/22/2017 Reviewed by: Delmis Cassidy - Fully Assessed Reason for Visit: Established Patient [175] Primary Visit Diagnosis:Multiple myeloma in relapse (HCC) [C90.02] Order(s):PARKING FOR HANDICAPPED [[id number]] Order #: [id number] Follow-up and Disposition History Recorded Prescriptions as of 09/22/2017 Sig: POMALYST 2 MG CAPSULE TAKE 1 CAPSULE BY MOUTH EVERY* LEVOTHYROXINE 50 MCG TABLET Take 1 tablet by mouth once d* AMIODARONE 200 MG TABLET TAKE 1 TABLET EVERY DAY MIRTAZAPINE 30 MG TABLET Take 1 tablet by mouth daily * DEXAMETHASONE 4 MG TABLET Take 5 tablets once the day a* ATORVASTATIN 10 MG TABLET TAKE 1 TABLET EVERY DAY WARFARIN 3 MG TABLET TAKE 2 TABLETS (6MG) WEDNESDAY A* POLYETHYLENE GLYCOL 3350 17 G* Take 17 g by mouth once daily* ACETAMINOPHEN 500 MG TABLET Take 1,000 mg by mouth as nee* STOOL SOFTENER ORAL Take 1 tablet by mouth once d* SODIUM CHLORIDE 0.9% FLUSH Start IV as needed for labs o* * TRAMADOL 50 MG TABLET Take 1-2 tablets every 6 hour* Problem List As Of Date 09/22/2017 Noted Resolved Atrial Fibrillation [I48.91] INVALID FOR* Priority: Moderate More... Encounter for Long-Term (Current) Use of Antico*INVALID FOR* Priority: A Pure Hypercholesterolemia [E78.00] INVALID FOR* Priority: A KNEE PAIN - RIGHT [M25.569] INVALID FOR*08/18/2016 Priority: B GENERAL OSTEOARTHROSIS [M15.9] INVALID FOR* BENIGN NEOPLASM LG BOWEL [D12.6] DIVERTICULOSIS OF COLON W/O BLEED [K57.30] Internal hemorrhoids without mention of complic* 12/16/2011 KNEE JOINT REPLACEMENT STATUS [Z96.659] INVALID FOR* Sleep Apnea [G47.30] INVALID FOR* Priority: A More... Fracture of lateral malleolus [S82.63XA] INVALID FOR*08/18/2016 Priority: B More... 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 Vitamin D deficiency [E55.9] INVALID FOR* Esophagitis, unspecified [K20.9] INVALID FOR* Irritated//Inflamed Seborrheic Keratosis [L82.0]INVALID FOR*08/18/2016 Viral wart, unspecified [B07.9] INVALID FOR*08/18/2016 Neoplasm of Uncertain Behavior of skin: R/O Dys*INVALID FOR*08/18/2016 Atypical nevus of face [D22.30] INVALID FOR*08/18/2016 Sebaceous hyperplasia [L73.8] INVALID FOR*08/18/2016 Actinic skin damage [L57.8] INVALID FOR*08/18/2016 Solar lentigo [L81.4] INVALID FOR*08/18/2016 Other seborrheic keratosis [L82.1] INVALID FOR*08/18/2016 Multiple myeloma in relapse (HCC) [C90.02] INVALID FOR* Chronic low back pain [M54.5, G89.29] INVALID FOR* Hypothyroidism, acquired [E03.9] INVALID FOR* Encounter Status:Closed by HARSH TERRY DO on 09/22/17 PROTEIN ELEC,UR RAND Collected: 09/22/2017 Status: F Source: [place] 10:03 AM [facility] [place] REPOSITORY TYPE CODE TESTS RESULT OUT OF REFERENCE UNITS RANGE LAB UTPR 0-20 mg/dL Protein Urine Random 11 LAB UALB % Albumin 34.6 LAB UA1G >0 % Alpha 1 Globulin 9.6 LAB UA2G % Alpha 2 Globulin 23.2 LAB UBEG % Beta Globulin 15.7 LAB UGAG % Gamma Globulin 16.9 LAB UPEINT Interpretation SEE COMMENT Result Comment: No definitive M protein is identified on protein electrophoresis. LAB UPESTF Staff Reviewed by Review Anatoliy York M.D. ([id number]) Performed By: #### ROB LENNON #### [facility] [address] [place], [place] [address] MONOCLONAL PROT UR Collected: 09/22/2017 Status: F Source: [place] 10:03 AM [facility] [place] REPOSITORY TYPE CODE TESTS RESULT OUT OF RANGE REFERENCE UNITS LAB UMPA No M protein is UMPA Result Abnormal identified. M protein Alert is present. LAB UINTP UMPA Interpretation SEE COMMENT Result Comment: An atypical restricted band is present in the kappa region. The presence of free kappa light chains in the urine is consistent with a kappa-containing monoclonal gammopathy. LAB UMPSTF UMPA Reviewed by Staff Review Anatoliy York M.D. ([id number]) Performed By: #### URAQUEL, OBEYMPRosi #### [facility] [address] [place], [place] [address] RENATO ABS GR + CBC Collected: 09/22/2017 Status: F Source: [place] 10:00 AM [facility] REPOSITORY TYPE CODE TESTS RESULT OUT OF REFERENCE UNITS RANGE LAB WWBC 3.70-11.00 k/uL Renato WBC 6.04 LAB WRBC 4.20-6.00 m/uL Low [place] RBC 3.67 LAB WHGB 13.0-17.0 g/dL Low Renato Hemoglobin 12.9 LAB WHCT 39.0-51.0 % Renato Hematocrit 39.6 LAB WMCV 80.0-100.0 fL [place] High MCV 107.9 LAB WMCH 26.0-34.0 pg [place] High MCH 35.1 LAB WMCHC 30.5-36.0 g/dL Renato MCHC 32.6 LAB WRDW 11.5-15.0 % [place] RDW 15.0 LAB WPLT 150-400 k/uL Renato Platelet Cnt 151 LAB WMPV 9.0-12.7 fL Renato MPV 10.1 Result Comment: Test performed at: [facility], [address] [place] [address] Rd[address] [place] [address]. LAB ABGRAN 1.45-7.50 k/uL Absol Gran 3.35 Count PROTIME Collected: 09/22/2017 Status: F Source: [place] 10:00 AM [facility] REPOSITORY TYPE CODE TESTS RESULT OUT OF RANGE REFERENCE UNITS LAB PSEC 9.7-13.0 sec High PT Sec 31.4 LAB INR 0.9-1.3 High PT INR 3.3 Result Comment: Vitamin K Antagonist (VKA) Therapeutic Range: INR 2 to 3 (Target INR of 2.5) Note: For patients treated with VKA drugs, such as warfarin, the [place] [employer] 2012 Guideline recommends a therapeutic INR range of 2 to 3 (target INR of 2.5). This recommendation includes high-risk patients with antiphospholipid syndrome with previous arterial or venous thromboembolism, current-generation mechanical or bioprosthetic aortic heart valve replacement. Note: Patients with mechanical aortic valve replacement and additional risk factors for thromboembolic events (atrial fibrillation, previous thromboembolism, LV dysfunction, hypercoagulable conditions) or an older generation mechanical AVR (i.e., ball in-Cage) or any mechanical MVR should have a INR therapeutic range of 2.5 to 3.5 (target INR of 3). Karlie DOVE, et al. Chest 2012, 141:7S-47S Vinicio RA, et al. [facility] 2017, 70: 252-289 Performed By: #### PT #### [facility] [employer] [address] [place], [place] [address] COMP METABOLIC PANEL Collected: 09/22/2017 Status: F Source: [place] 10:00 AM [facility] REPOSITORY TYPE CODE TESTS RESULT OUT OF REFERENCE UNITS RANGE LAB TP 6.3-8.0 g/dL Low Protein, Total 5.6 LAB ALB 3.9-4.9 g/dL Low Albumin 3.4 LAB CA 8.5-10.2 mg/dL Calcium, Total 8.8 LAB TBIL 0.2-1.3 mg/dL Bilirubin, Total 0.4 LAB ALKP 36-108 U/L Alkaline Phosphatase 54 LAB AST 14-40 U/L AST 19 LAB GLU 74-99 mg/dL Glucose High 112 Result Comment: The [place] Diabetes [employer] (ADA) provides guidance for cutoff values for fasting glucose and random glucose. The ADA defines fasting as no caloric intake for at least 8 hours. Fas ting plasma glucose results between 100 to 125 mg/dL indicate increased risk for diabetes (prediabetes). Fasting plasma glucose results greater than or equal to 126 mg/dL meet the criteria for diagnosis of diabetes. In the absence of unequivocal hyperglycemia, results should be confirmed by repeat testing. In a patient with classic symptoms of hyperglycemia or hyperglycemic crisis, random plasma glucose results greater than or equal to 200 mg/dL meet the criteria for diagnosis of diabetes. Reference: Standards of Medical Care in Diabetes 2016, [place] [employer]. Diabetes Care. 2016.39(Suppl 1). LAB BUN 9-24 mg/dL BUN 21 LAB CRET 0.73-1.22 mg/dL Creatinine 1.04 LAB NA 136-144 mmol/L Sodium 142 LAB K 3.7-5.1 mmol/L Potassium 4.6 LAB CL 97-105 mmol/L Chloride 105 LAB CO2 22-30 mmol/L CO2 24 LAB AGAP 9-18 mmol/L Anion Gap 13 LAB ALT 10-54 U/L ALT 20 LAB GFRAA eGFR- Amer. >60 LAB GFRNAA . eGFR-All Other Races >60 Result Comment: eGFR (Estimated GFR) Units of measure: mL/min/1.73 meters squared eGFR is derived from the reexpressed MDRD Study equation using the following parameters: serum creatinine, age, gender and race. The creatinine assay has been calibrated to be traceable to IDMS. An eGFR <60 mL/min/1.73m2 for >3 months is consistent with chronic kidney disease. Refer to KDOQI guidelines for clinical interpretation. In patients with unstable renal function, e.g. those with acute kidney injury, the eGFR may not accurately reflect actual GFR. Performed By: #### CMP, B2M, KLFRS, MPASRM, SEPG #### [facility] [employer] [address] [place] [address] B2 MICROGLOBULIN Collected: 09/22/2017 Status: F Source: [place] 10:00 AM [facility] REPOSITORY TYPE CODE TESTS RESULT OUT OF REFERENCE UNITS RANGE LAB B2M 0.8-2.2 mg/L B2 Microglobulin High 3.3 Performed By: #### CMP, B2M, KLFRS, MPASRM, SEPG #### [facility] [employer] [address] [place] [id number] KAPPA/ALVARADO,FREE,SER Collected: Status: F Source: [place] 09/22/2017 10:00 AM [facility] REPOSITORY TYPE CODE TESTS RESULT OUT OF REFERENCE UNITS RANGE LAB FKAPS 3.30-19.40 mg/L High [place], 81.7 Free, Serum Result Comment: Rarely, increased serum free light chains values may not be detected due to antigen excess phenomenon. Results should always be correlated with other laboratory results and clinical findings. LAB FLAMS 5.7-26.3 mg/L Lambda, Free, 6.6 Serum Result Comment: Rarely, increased serum free light chains values may not be detected due to antigen excess phenomenon. Results should always be correlated with other laboratory results and clinical findings. LAB KLRAT 0.26-1.65 High K/L Ratio, 12.38 Serum Performed By: #### CMP, B2M, KLFRS, MPASRM, SEPG #### [facility] [address] [place], [place] [address] MONOCLONL PROTEIN,BL Collected: 09/22/2017 Status: F Source: [place] 10:00 AM [facility] REPOSITORY TYPE CODE TESTS RESULT OUT OF RANGE REFERENCE UNITS LAB MPAIGG 717-1411 mg/dL Low MPA Serum IgG 350 LAB MPAIGA 78-391 mg/dL Low MPA Serum IgA 7 LAB MPAIGM 53-334 mg/dL Low MPA Serum IgM 12 LAB MPAK 534-1267 mg/dL Low Serum [place] 370 LAB MPAL 253-653 mg/dL Low Serum Lambda 81 LAB MPAKL 1-3 High MPA Klaudia/Louis Ratio 4.57 LAB MPAR No M protein is MPA Result Abnormal identified. M protein Alert is present. LAB INTP MPA Interpretation SEE COMMENT Result Comment: Atypical restricted bands are present in the IgG and kappa regions. Consistent with IgG kappa monoclonal gammopathy. LAB MPASTF Staff Reviewed by Review Anatoliy York M.D. ([id number]) Performed By: #### CMP, B2M, KLFRS, MPASRM, SEPG #### [facility] [address] [place], [place] [address] PROTEIN ELECTROPHOR. Collected: 09/22/2017 Status: F Source: [place] 10:00 AM [facility] REPOSITORY TYPE CODE TESTS RESULT OUT OF REFERENCE UNITS RANGE LAB TPSPE 6.0-8.4 g/dL Total Protein, Low SPE 5.2 LAB ALBE 3.37-4.23 gm/dL Albumin Low 3.04 LAB A1GL 0.18-0.31 gm/dL Alpha 1 Globulin 0.27 LAB A2GL 0.52-0.97 gm/dL Alpha 2 Globulin 0.78 LAB BEGL 0.84-1.36 gm/dL Beta Globulin Low 0.75 LAB GAGL 0.70-1.44 gm/dL Gamma Globulin Low 0.35 LAB SPEINT Interpretation SEE COMMENT Result Comment: An M protein is identified on protein electrophoresis. See separate immunofixation report for characterization of the M protein. LAB LOC M Protein Gamma Location fraction LAB GPERDL 0.00 gm/dL M Rich 0.09 High Concentratn LAB SPESTF SPE Staff Review Reviewed by Anatoliy York M.D. ([id number]) Performed By: #### CMP, B2M, KLFRS, MPASRM, SEPG #### [facility] [address] [place] [id number] [place] ABS GR + CBC Collected: 09/09/2017 Status: F Source: [place] 11:51 AM [facility] REPOSITORY TYPE CODE TESTS RESULT OUT OF REFERENCE UNITS RANGE LAB WWBC 3.70-11.00 k/uL Renato WBC 4.94 LAB WRBC 4.20-6.00 m/uL Low Renato RBC 3.33 LAB WHGB 13.0-17.0 g/dL Low [place] Hemoglobin 12.0 LAB WHCT 39.0-51.0 % Low [place] Hematocrit 35.8 LAB WMCV 80.0-100.0 fL [place] High MCV 107.5 LAB WMCH 26.0-34.0 pg Renato High MCH 36.0 LAB WMCHC 30.5-36.0 g/dL Renato MCHC 33.5 LAB WRDW 11.5-15.0 % Renato RDW 14.8 LAB WPLT 150-400 k/uL Low [place] Platelet Cnt 143 LAB WMPV 9.0-12.7 fL Renato MPV 10.2 Result Comment: Test performed at: [facility], [address] [place] [address]. LAB ABGRAN 1.45-7.50 k/uL Absol Gran 1.69 Count INITAL EVALUATION (1) Observed: 09/03/2017 Status: F Source: [place] - PT 11:00 AM [facility] REPOSITORY [facility] [address] [place] [address]. [address] [place] [address] Fax REHABILITATION SERVICES INITIAL EVALUATION MR#: [id number] Acct: [id number] Name: GALE VALDEZ Rep #: [id number] : 1940 77 From: Bryce Daniels PT, ATC Referring Dr.: Harsh Terry DO Status: REG RCR Insurance: MEDICARE PART A B [employer] Patient's Visit Information JAIME Rosi VALDEZ is a 77 year old M referred to Physical Therapy by Harsh Terry with a diagnosis of LBP. Date of Evaluation: 09/03/17 Physical Therapist: Bryce Daniels, PT, - Visit Plan Frequency: 2-3x /Week Duration: 4-6 Weeks Plan: postural edu, core stab ex's, LE strengthining, nustep, and HEP - Subjective Subjective: Pt reports he has had a chronic Hx of LBP. Pt reports he has been getting back injections from Dr. Maki over the years which really helped up until the past 6 months. Pt reports the injections are not helping anymore and he is in a lot of pain. Pt notes he does have a Hx of a fall that also really hurt his back. Pt notes he had an MRI 2 weeks ago, which revealed deg changes throughout LB. Prolonged ambulation and standing increases his pain. Sleeping and sitting helps to decrease his pain. No sleep diff at this time. 1/10 at rest, 7/10 at worst (with walking a lot) - Pain LBP Pain Intensity (Out of 10): 1 Pain Intensity Range: 7 - Objective Neuro: B LE sensation is WNL to light touch. MMT: B LE's are grossly 4+/5 throughout. ROM: Pt is moderately limited in all planes. Gait: Pt is able to ambulate greater than 1000 ft without limitation - Goals Goal 1:: Decrease LBP x 50% to aid with walking Goal Time Frame: 4-6 Weeks Goal 2:: Increase B LE strength x 1 grade to aid with stair negotiation Goal Time Frame: 4-6 Weeks Goal 3:: I with HEP Goal Time Frame: 4-6 Weeks - Rehabilitation Potential Physical Therapy Diagnosis: Pt has LBP, LE weakness, and limited ROM in L/S secondary to degenerative changes in LB Rehabilitation Potential: Good - Anticipated Interventions Patient/Client Instruction: Educate patient on: Condition, Plan of Care For the Purpose of:: To improve self management Therapeutic Exercise to Include: Strength training, Endurance training, Body mechanics, Postural training, Active ROM, Dynamic Lumbar Stabilization For the Purpose of:: To decrease pain, To improve muscle performance and motor function, To increase tolerance to activity/condition/position, To improve performance and independence with ADL's Cryotherapy (ice pack, ice massage): Yes Thermo therapy (hot pack): Yes For the Purpose of:: To decrease pain Thank you for the opportunity to evaluate your patient. For Medicare and Medicare HMO plans, please review the plan of care and approve it. It will need to be FAXED BACK to us at [phone] for Medicare purposes. Please let me know if there are questions or concerns regarding this plan of care. Physician Signature: Date: <Electronically signed by Bryce Daniels PT, ATC> 09/03/17 1100 CC: Elle Leger MD; Harsh Terry DO [facility] Signed For Medicare only, by signing this I certify the plan of care. Physicians Signature Date PROGRESS Observed: 08/26/2017 Status: COMPLETED Source: [place] 9:16 AM [facility] REPOSITORY HNO ID: [id number] Author: Harsh Terry Service: (none) Author Type: Physician Type: Progress Notes Filed: 08/26/2017 9:38 AM Note Text: Diagnosis: 1) [place] light chain only multiple myeloma. HPI: The patient is a 77 yo male who was evaluated for pain in the right shoulder in April of 2011. Initially he had pain across the top of the shoulder. The onset was following lifting some luggage when he was on a cruise. He underwent an injection which didn't help the pain. He also had plain films which didn't show any significant bony pathology. He was referred to an orthopedic surgeon who ordered an MRI of the shoulder on 06/29/11. The study revealed multiple metastatic deposits throughout the shoulder girdle, involving the visualized humerus, scapula and clavicle. There was a large expansile lesion within the scapula extending into the periscapular soft tissues along the deep and superficial surface there was also a large expansile lesion of the distal clavicle. Work up has revealed kappa light chain multiple myeloma. Previous therapy: 1) VMP x3 cycles. Therapy was held due to worsening fatigue and neuropathy. He also had significant difficulty with constipation throughout his treatment course. Laboratory analysis revealed marked reduction in serum kappa light chain. 2) Velcade/dex (day 1, 8 and 15 every 28 days). Began 11/06/2014. Revlimid 15 mg days 1-21 added 06/2015. PD 04/2017. Current therapy: 1) Daratumumab/Pomalyst/dex. Presents for ongoing oncologic management. Interim history: No side effects from Pomalyst other than maybe mild fatigue. However it's been a chronic problem and he still very active doing yard work and gardening. His biggest frustration is the low back pain. This is chronic in nature and about 2 months ago he stumbled and fell against a wall or a protrusion hit his right lower back around the L3-L4 area. That has been more acutely painful lately. 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 An MRI was obtained at [facility] on the . An appointment for him has been arranged to see a back surgeon. He thinks the neuropathy in his feet is somewhat better. He has not had any nausea or vomiting. No unusual bleeding or unexplained bruising. PMH, medications and allergies as below personally reviewed by me today. Any changes documented in appropriate section. ROS: Constitutional: Denies episodes of fever and night sweats. Normal appetite. Neuro: Denies METZGER, vertigo, dizziness and imbalance. HEENT: No recent change in voice, vision or hearing. Resp: Denies cough, wheeze and hemoptysis. Denies shortness of breath at rest. CVS: Denies exertional chest pain, PND, orthopnea and LE edema. GI: Denies dysgeusia. Denies symptoms of stomatitis. Denies dysphagia and odynophagia. Denies reflux, n/v, change in bowel habits and abdominal pain. : Denies dysuria or gross hematuria. No symptoms of bladder outlet obstruction. Endo: Denies hot flashes. Denies polyuria and polydipsia. Denies heat and cold intolerance. Musculoskeletal: See above. Derm: Denies rash. Denies jaundice and diffuse pruritis. Heme: Denies unusual bleeding and unexplained bruising. Psych: Normal mood. PHYSICAL EXAM: Vitals: Blood pressure 115/70, pulse 68, temperature 36.6 ?C (97.9 ?F), weight 101.8 kg (224 lb 8 oz). Well-appearing and in no acute distress. EYES: Sclerae are anicteric bilaterally. NECK: Supple. LYMPHATIC: There is no palpable cervical, supraclavicular adenopathy. RESPIRATORY: Normal air entry. CVS: Regular rhythm. ABDOMEN: The abdomen is nondistended. There is no organomegaly. No tenderness. Extremities: Trace edema both ankles/distal lower extremities-stable. SKIN: No rash. 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 No focal motor weakness. ASSESSMENT/PLAN: 1) Multiple myeloma. Light chain only disease. Relapsed with increase in serum kappa light chain and very small amount kappa in 24 hour urine. -Tolerating Pomalyst and daratumumab very well. No untoward side effect. -Recent light chain decreased. Plan: -Continue daratumumab. On treatment days, he will receive dexamethasone is a 20 mg pre-infusion medication. He does not have to take it the day after. He will take 20 mg by mouth on the in-between weeks. -Continue Pomalyst. -Continue Zometa every 3 months. -Monthly OV with myeloma lab assessment. 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 Plan: -I printed the MRI report for him and went through it. He was done without IV contrast but no obvious evidence of myeloma or lytic lesions in the lumbar spine. -I encouraged him again to undergo PT evaluation while he is waiting surgical opinion. He agreed. We will arrange PT [facility] at [facility]. DO NATIVIDAD MartinezOVSLudwig Observed: 08/26/2017 Status: COMPLETED Source: [place] 9:10 AM [facility] REPOSITORY Visit (SP) Office (HERRERA) GALE VALDEZ ([id number]) [address] [facility] Date Time Provider Department 08/26/17 9:10 AM HARSH TERRY During your visit today, we recorded the following information about you: Temperature Pulse Blood pressure Weight 97.9 degrees 68/minute 115/70 101.8 kg Kianna Hill LPN, MUKUND 08/26/2017 9:15 AM Signed Est pt, discuss recent lab results, tx tomorrow MUKUND Bentley, DO 08/26/2017 9:38 AM Signed Diagnosis: 1) [place] light chain only multiple myeloma. HPI: The patient is a 77 yo male who was evaluated for pain in the right shoulder in April of 2011. Initially he had pain across the top of the shoulder. The onset was following lifting some luggage when he was on a cruise. He underwent an injection which didn't help the pain. He also had plain films which didn't show any significant bony pathology. He was referred to an orthopedic surgeon who ordered an MRI of the shoulder on 06/29/11. The study revealed multiple metastatic deposits throughout the shoulder girdle, involving the visualized humerus, scapula and clavicle. There was a large expansile lesion within the scapula extending into the periscapular soft tissues along the deep and superficial surface there was also a large expansile lesion of the distal clavicle. Work up has revealed kappa light chain multiple myeloma. Previous therapy: 1) VMP x3 cycles. Therapy was held due to worsening fatigue and neuropathy. He also had significant difficulty with constipation throughout his treatment course. Laboratory analysis revealed marked reduction in serum kappa light chain. 2) Velcade/dex (day 1, 8 and 15 every 28 days). Began 11/06/2014. Revlimid 15 mg days 1-21 added 06/2015. PD 04/2017. Current therapy: 1) Daratumumab/Pomalyst/dex. Presents for ongoing oncologic management. Interim history: No side effects from Pomalyst other than maybe mild fatigue. However it's been a chronic problem and he still very active doing yard work and gardening. His biggest frustration is the low back pain. This is chronic in nature and about 2 months ago he stumbled and fell against a wall or a protrusion hit his right lower back around the L3-L4 area. That has been more acutely painful lately. 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 An MRI was obtained at [facility] on the . An appointment for him has been arranged to see a back surgeon. He thinks the neuropathy in his feet is somewhat better. He has not had any nausea or vomiting. No unusual bleeding or unexplained bruising. PMH, medications and allergies as below personally reviewed by me today. Any changes documented in appropriate section. ROS: Constitutional: Denies episodes of fever and night sweats. Normal appetite. Neuro: Denies METZGER, vertigo, dizziness and imbalance. HEENT: No recent change in voice, vision or hearing. Resp: Denies cough, wheeze and hemoptysis. Denies shortness of breath at rest. CVS: Denies exertional chest pain, PND, orthopnea and LE edema. GI: Denies dysgeusia. Denies symptoms of stomatitis. Denies dysphagia and odynophagia. Denies reflux, n/v, change in bowel habits and abdominal pain. : Denies dysuria or gross hematuria. No symptoms of bladder outlet obstruction. Endo: Denies hot flashes. Denies polyuria and polydipsia. Denies heat and cold intolerance. Musculoskeletal: See above. Derm: Denies rash. Denies jaundice and diffuse pruritis. Heme: Denies unusual bleeding and unexplained bruising. Psych: Normal mood. PHYSICAL EXAM: Vitals: Blood pressure 115/70, pulse 68, temperature 36.6 ?C (97.9 ?F), weight 101.8 kg (224 lb 8 oz). Well-appearing and in no acute distress. EYES: Sclerae are anicteric bilaterally. NECK: Supple. LYMPHATIC: There is no palpable cervical, supraclavicular adenopathy. RESPIRATORY: Normal air entry. CVS: Regular rhythm. ABDOMEN: The abdomen is nondistended. There is no organomegaly. No tenderness. Extremities: Trace edema both ankles/distal lower extremities-stable. SKIN: No rash. 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 No focal motor weakness. ASSESSMENT/PLAN: 1) Multiple myeloma. Light chain only disease. Relapsed with increase in serum kappa light chain and very small amount kappa in 24 hour urine. -Tolerating Pomalyst and daratumumab very well. No untoward side effect. -Recent light chain decreased. Plan: -Continue daratumumab. On treatment days, he will receive dexamethasone is a 20 mg pre-infusion medication. He does not have to take it the day after. He will take 20 mg by mouth on the in-between weeks. -Continue Pomalyst. -Continue Zometa every 3 months. -Monthly OV with myeloma lab assessment. 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 Plan: -I printed the MRI report for him and went through it. He was done without IV contrast but no obvious evidence of myeloma or lytic lesions in the lumbar spine. -I encouraged him again to undergo PT evaluation while he is waiting surgical opinion. He agreed. We will arrange PT [facility]. Harsh Terry DO Referring Provider: HARSH TERRY [[id number]] Allergies As of Date: 08/26/2017 Noted Allergy Reaction bandaid [Other] 11/20/2004 NEOSPORIN ([id number]*11/20/2004 Date Reviewed: 08/26/2017 Reviewed by: Kianna Smith (Paint Stock Clerk) MUKUND Hill - Fully Assessed Reason for Visit: Established Patient [175] Primary Visit Diagnosis:Multiple myeloma in relapse (HCC) [C90.02] Other Visit Diagnosis:Chronic bilateral low back pain without sciatica [M54.5, G89.29] Order(s):CONSULT TO PHYSICAL THERAPY [9014] Order #: [id number]: 1 Follow-up and Disposition History Recorded Prescriptions as of 08/26/2017 Sig: POMALYST 2 MG CAPSULE TAKE 1 CAPSULE BY MOUTH EVERY* LEVOTHYROXINE 50 MCG TABLET Take 1 tablet by mouth once d* AMIODARONE 200 MG TABLET TAKE 1 TABLET EVERY DAY MIRTAZAPINE 30 MG TABLET Take 1 tablet by mouth daily * DEXAMETHASONE 4 MG TABLET Take 5 tablets once the day a* ATORVASTATIN 10 MG TABLET TAKE 1 TABLET EVERY DAY WARFARIN 3 MG TABLET TAKE 2 TABLETS (6MG) WEDNESDAY A* POLYETHYLENE GLYCOL 3350 17 G* Take 17 g by mouth once daily* ACETAMINOPHEN 500 MG TABLET Take 1,000 mg by mouth as nee* STOOL SOFTENER ORAL Take 1 tablet by mouth once d* SODIUM CHLORIDE 0.9% FLUSH Start IV as needed for labs o* * TRAMADOL 50 MG TABLET Take 1-2 tablets every 6 hour* Medication notes this encounter MIRTAZAPINE 30 MG TABLET >> Kianna Hill LPN, LPN 08/26/2017 8:46 AM >> KIANNA HILL Aug 26, 2017 8:46 AM Seldom takes POLYETHYLENE GLYCOL 3350 17 GRAM ORAL POWDER 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 Encounter for Long-Term (Current) Use of Antico*INVALID FOR* Priority: A Pure Hypercholesterolemia [E78.00] INVALID FOR* Priority: A KNEE PAIN - RIGHT [M25.569] INVALID FOR*08/18/2016 Priority: B GENERAL OSTEOARTHROSIS [M15.9] INVALID FOR* BENIGN NEOPLASM LG BOWEL [D12.6] DIVERTICULOSIS OF COLON W/O BLEED [K57.30] Internal hemorrhoids without mention of complic* 12/16/2011 KNEE JOINT REPLACEMENT STATUS [Z96.659] INVALID FOR* Sleep Apnea [G47.30] INVALID FOR* Priority: A More... Fracture of lateral malleolus [S82.63XA] INVALID FOR*08/18/2016 Priority: B More... 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 Vitamin D deficiency [E55.9] INVALID FOR* Esophagitis, unspecified [K20.9] INVALID FOR* Irritated//Inflamed Seborrheic Keratosis [L82.0]INVALID FOR*08/18/2016 Viral wart, unspecified [B07.9] INVALID FOR*08/18/2016 Neoplasm of Uncertain Behavior of skin: R/O Dys*INVALID FOR*08/18/2016 Atypical nevus of face [D22.30] INVALID FOR*08/18/2016 Sebaceous hyperplasia [L73.8] INVALID FOR*08/18/2016 Actinic skin damage [L57.8] INVALID FOR*08/18/2016 Solar lentigo [L81.4] INVALID FOR*08/18/2016 Other seborrheic keratosis [L82.1] INVALID FOR*08/18/2016 Multiple myeloma in relapse (HCC) [C90.02] INVALID FOR* Chronic low back pain [M54.5, G89.29] INVALID FOR* Hypothyroidism, acquired [E03.9] INVALID FOR* Visit Notes: >> Kianna Hill LPN Rosa M Aug 26, 2017 8:47 AM Status: Signed Est pt, discuss recent lab results, tx tomorrow Kianna Hill LPN Encounter Status:Closed by HARSH TERRY DO on 08/26/17 RENATO CBC AND DIFF Collected: 08/26/2017 Status: F Source: [place] 8:30 AM [facility] REPOS[facility]ORY TYPE CODE TESTS RESULT OUT OF REFERENCE UNITS RANGE LAB WWBC 3.70-11.00 k/uL [place] WBC 5.57 LAB WRBC 4.20-6.00 m/uL Low Ren[place] RBC 3.52 LAB WHGB 13.0-17.0 g/dL Low [place] Hemoglobin 12.7 LAB WHCT 39.0-51.0 % Low [place] Hematocrit 38.0 LAB WMCV 80.0-100.0 fL Ren[place] High MCV 108.0 LAB WMCH 26.0-34.0 pg [place] High MCH 36.1 LAB WMCHC 30.5-36.0 g/dL [place] MCHC 33.4 LAB WRDW 11.5-15.0 % Renato High RDW 15.6 LAB WPLT 150-400 k/uL Low [place] Platelet Cnt 117 LAB WMPV 9.0-12.7 fL [place] MPV 10.6 Result Comment: Test performed at: [facility], [address] [place] [address] Rd., [place] [address]. LAB WNEUT % [place] Neut% 46.9 LAB WLYMP % [place] Lymp% 30.3 LAB WMONOC % [place] Castro% 15.8 LAB WEOS % [place] Eos% 6.6 LAB WBASO % [place] Baso% 0.4 LAB WANEUT 1.45-7.5 k/uL 0 [place] Abs Neut 2.61 LAB WALYMP 1.00-4.0 k/uL 0 [place] Abs Lymp 1.69 LAB WAMONO <0.87 k/uL High Renato Abs Castro 0.88 LAB WAEOS <0.46 k/uL [place] Abs Eos 0.37 LAB WABASO <0.11 k/uL [place] Abs Baso <0.03 B2 MICROGLOBULIN Collected: 08/26/2017 Status: F Source: [place] 8:30 AM [facility] REPOSITORY TYPE CODE TESTS RESULT OUT OF REFERENCE UNITS RANGE LAB B2M 0.8-2.2 mg/L B2 Microglobulin High 3.4 Performed By: #### B2M, CMP, KLFRS, SEPG, MPASRM #### [facility] [address] [place] [address] COMP METABOLIC PANEL Collected: 08/26/2017 Status: F Source: [place] 8:30 AM [facility] REPOSITORY TYPE CODE TESTS RESULT OUT OF REFERENCE UNITS RANGE LAB TP 6.3-8.0 g/dL Low Protein, Total 5.9 LAB ALB 3.9-4.9 g/dL Low Albumin 3.7 LAB CA 8.5-10.2 mg/dL Calcium, Total 8.8 LAB TBIL 0.2-1.3 mg/dL Bilirubin, Total 0.4 LAB ALKP 36-108 U/L Alkaline Phosphatase 51 LAB AST 14-40 U/L AST 26 LAB GLU 74-99 mg/dL Glucose 82 Result Comment: The [place] [employer] (ADA) provides guidance for cutoff values for fasting glucose and random glucose. The ADA defines fasting as no caloric intake for at least 8 hours. Fas ting plasma glucose results between 100 to 125 mg/dL indicate increased risk for diabetes (prediabetes). Fasting plasma glucose results greater than or equal to 126 mg/dL meet the criteria for diagnosis of diabetes. In the absence of unequivocal hyperglycemia, results should be confirmed by repeat testing. In a patient with classic symptoms of hyperglycemia or hyperglycemic crisis, random plasma glucose results greater than or equal to 200 mg/dL meet the criteria for diagnosis of diabetes. Reference: Standards of Medical Care in Diabetes 2016, [place] [employer]. Diabetes Care. 2016.39(Suppl 1). LAB BUN 9-24 mg/dL BUN 20 LAB CRET 0.73-1.22 mg/dL Creatinine 0.92 LAB NA 136-144 mmol/L Sodium 142 LAB K 3.7-5.1 mmol/L Potassium 4.2 LAB CL 97-105 mmol/L Chloride High 109 LAB CO2 22-30 mmol/L CO2 25 LAB AGAP 9-18 mmol/L Low Anion Gap 8 LAB ALT 10-54 U/L ALT 23 LAB GFRAA eGFR- Amer. >60 LAB GFRNAA . eGFR-All Other Races >60 Result Comment: eGFR (Estimated GFR) Units of measure: mL/min/1.73 meters squared eGFR is derived from the reexpressed MDRD Study equation using the following parameters: serum creatinine, age, gender and race. The creatinine assay has been calibrated to be traceable to IDMS. An eGFR <60 mL/min/1.73m2 for >3 months is consistent with chronic kidney disease. Refer to KDOQI guidelines for clinical interpretation. In patients with unstable renal function, e.g. those with acute kidney injury, the eGFR may not accurately reflect actual GFR. Performed By: #### B2M, CMP, KLFRS, SEPG, MPASRM #### [facility] [employer] [address] [place], [place] [address] KAPPA/ALVARADO,FREE,SER Collected: Status: F Source: [place] 08/26/2017 8:30 AM [facility] REPOSITORY TYPE CODE TESTS RESULT OUT OF REFERENCE UNITS RANGE LAB FKAPS 3.30-19.40 mg/L High [place], 68.6 Free, Serum Result Comment: Rarely, increased serum free light chains values may not be detected due to antigen excess phenomenon. Results should always be correlated with other laboratory results and clinical findings. LAB FLAMS 5.7-26.3 mg/L Lambda, Free, 6.6 Serum Result Comment: Rarely, increased serum free light chains values may not be detected due to antigen excess phenomenon. Results should always be correlated with other laboratory results and clinical findings. LAB KLRAT 0.26-1.65 High K/L Ratio, 10.39 Serum Performed By: #### B2M, CMP, KLFRS, SEPG, MPASRM #### [facility] [employer] [address] [place], [place] [address] PROTEIN ELECTROPHOR. Collected: 08/26/2017 Status: F Source: [place] 8:30 AM [facility] REPOSITORY TYPE CODE TESTS RESULT OUT OF REFERENCE UNITS RANGE LAB TPSPE 6.0-8.4 g/dL Total Protein, Low SPE 5.4 LAB ALBE 3.37-4.23 gm/dL Albumin Low 3.32 LAB A1GL 0.18-0.31 gm/dL Alpha 1 Globulin 0.27 LAB A2GL 0.52-0.97 gm/dL Alpha 2 Globulin 0.79 LAB BEGL 0.84-1.36 gm/dL Beta Globulin Low 0.73 LAB GAGL 0.70-1.44 gm/dL Gamma Globulin Low 0.29 LAB SPEINT Interpretation SEE COMMENT Result Comment: An M protein is identified on protein electrophoresis. See separate immunofixation report for characterization of the M protein. LAB LOC M Protein Gamma Location fraction LAB GPERDL 0.00 gm/dL M Rich 0.08 High Concentratn LAB SPESTF SPE Staff Review Reviewed by Anatoliy York M.D. ([id number]) Performed By: #### B2M, CMP, KLFRS, SEPG, MPASRM #### [facility] [employer] [address] [place], [place] [address] MONOCLONL PROTEIN,BL Collected: 08/26/2017 Status: F Source: [place] 8:30 AM [facility] REPOSITORY TYPE CODE TESTS RESULT OUT OF RANGE REFERENCE UNITS LAB MPAIGG 717-1411 mg/dL Low MPA Serum IgG 389 LAB MPAIGA 78-391 mg/dL Low MPA Serum IgA 7 LAB MPAIGM 53-334 mg/dL Low MPA Serum IgM 14 LAB MPAK 534-1267 mg/dL Low Serum [place] 471 LAB MPAL 253-653 mg/dL Low Serum Lambda 88 LAB MPAKL 1-3 High MPA Klaudia/Louis Ratio 5.35 LAB MPAR No M protein is MPA Result Abnormal identified. M protein Alert is present. LAB INTP MPA Interpretation SEE COMMENT Result Comment: Atypical restricted bands are present in the IgG and kappa regions. Consistent with IgG kappa monoclonal gammopathy. LAB MPASTF Staff Reviewed by Review Anatoliy York M.D. ([id number]) Performed By: #### B2M, CMP, KLFRS, SEPG, MPASRM #### [facility] [place] [address] [place] [id number] PROTEIN ELEC,UR RAND Collected: 08/26/2017 Status: F Source: [place] 8:30 AM [facility] REPOSITORY TYPE CODE TESTS RESULT OUT OF REFERENCE UNITS RANGE LAB UTPR 0-20 mg/dL Protein Urine Random 13 LAB UALB % Albumin 17.7 LAB UA1G >0 % Alpha 1 Globulin 8.3 LAB UA2G % Alpha 2 Globulin 25.2 LAB UBEG % Beta Globulin 26.6 LAB UGAG % Gamma Globulin 22.3 LAB UPEINT Interpretation SEE COMMENT Result Comment: An M protein is identified on protein electrophoresis. See separate immunofixation report for characterization of the M protein. LAB UPESTF Staff Reviewed by Review Anatoliy York M.D. ([id number]) Performed By: #### UEPG, URMPA #### [facility] [employer] [address] [place], [place] [address] MONOCLONAL PROT UR Collected: 08/26/2017 Status: F Source: [place] 8:30 AM [facility] REPOSITORY TYPE CODE TESTS RESULT OUT OF RANGE REFERENCE UNITS LAB UMPA No M protein is UMPA Result Abnormal identified. M protein Alert is present. LAB UINTP UMPA Interpretation SEE COMMENT Result Comment: An atypical restricted band is present in the kappa region. The presence of free kappa light chains in the urine is consistent with a kappa-containing monoclonal gammopathy. LAB UMPSTF Reviewed by Diamante [facility] Staff MD Dania ([id number]) Review Performed By: #### UEPGROB #### [facility] [address] [place], [place] [address] SPINE LUMBAR Observed: 08/17/2017 Status: F Source: [place] (ROUTINE) 10:56 AM [facility] REPOSITORY [facility] Imaging Services [address] [place] [address] Spine Lumbar (Routine) MR#: [id number] Acct: [id number] Name: GALE VALDEZ Rep #: [id number] : 1940 M 77 From: Herson Landrum MD PCP: [place] UMAÑA,Elle Status: REG CLI Study: Spine Lumbar (Routine) Date of Exam: 08/17/17 Exam# [id number] Ordering Dr: Fay Maki MD STUDY: MRI LUMBAR SPINE WITHOUT CONTRAST REASON FOR EXAM: Male, 77 years old. Low back pain and right hip pain x6 years. History of multiple myeloma. TECHNIQUE: Standardized fat and water weighted pulse sequences were obtained in the sagittal and axial planes. COMPARISON: Lumbar spine radiographs 06/10/2015. FINDINGS: T11-T12: (Sagittal only). Normal T11 inferior endplate. Mild anterior wedging of T12 superior endplate without bone edema is presumably secondary to remote injury. This is unchanged when compared to plain film radiographs of 06/10/2015. Anterior degenerative vacuum phenomena. Marked loss of disc hydration. No ventral is a ventral defect. Normal central canal and bilateral intervertebral neural foramina. T12-L1: (Sagittal only). Anterior marginal spurs. Pronounced disc space narrowing. Marked loss of disc hydration. Minimal degenerative retrolisthesis of T12 on L1. Normal central canal and bilateral intervertebral neural foramina. Round T12 benign focal fatty infiltration. Normal lumbar lordosis. There is no substantial scoliosis. Normal conus medullaris that terminates at the mid L1 vertebral body level. L1-2: Prominent anterior marginal spurs. Nearly grade 1 degenerative retrolisthesis of L1 on L2. Pronounced disc space height narrowing. Normal central canal and bilateral lateral recesses. Mild asymmetric degenerative facet arthropathy. Moderate stenosis of the right intervertebral neural foramen. Normal left intervertebral neural foramen. L2-3: Anterior marginal spurs. Bridging right lateral marginal spurs. Moderately pronounced right-sided disc space height narrowing. Schmorl's node in the posterior aspect of the L2 inferior endplate. Normal L2 superior endplate. Minimal asymmetric degenerative retrolisthesis of L2 on L3. Mild central canal stenosis with an AP canal diameter of 9 mm. Right posterior ligamentum flavum hypertrophy. Mild to moderate asymmetric degenerative facet arthropathy. Normal bilateral intervertebral neural foramina. L3-4: Small anterior marginal spurs. Minimal left lateral subluxation of L3 on L4. Pronounced right-sided disc space height narrowing. Schmorl's node in the central aspect of the L3 inferior endplate. Normal L4 superior endplate. Small posterior midline cephalad disc protrusion. Mild to moderate asymmetric central canal stenosis. The AP canal diameter is 8 mm. Bilateral posterior ligamenta flava hypertrophy. Mild to moderate right degenerative facet hypertrophy. Mild left degenerative facet arthropathy. Mild stenosis of the left intervertebral neural foramen. Normal right intervertebral neural foramen. L4-5: Pronounced disc space height narrowing. Minimal right lateral subluxation of L4 on L5. Prominent left lateral marginal spurs. Modic type II degenerative vertebral marrow fatty changes underneath the vertebral endplates. Mild asymmetric central canal stenosis. The AP canal diameter is 10 mm. Left posterior ligamentum flavum pertinently. Moderate left degenerative facet hypertrophy. Mild right degenerative facet arthropathy. Moderately pronounced stenosis of the left intervertebral neural foramen with osteophytic impingement of the left L4 nerve (series 2, image 5). L5-S1: Deep and prominent Schmorl's node in the central aspect of the S1 superior endplate. Modic type II degenerative vertebral marrow fatty change underneath the L5 inferior endplate. Moderate disc space height narrowing. Small posterior midline disc protrusion. Normal central canal. Mild asymmetric degenerative facet arthropathy. Moderate stenosis of the bilateral intervertebral neural foramina. Normal visualized sacral ala. Normal visualized paraspinous soft tissue structures. MRI/Spine Lumbar (Routine) IMPRESSION: 1. No MRI evidence of lumbar extruded disc fragment. 2. Pronounced L4-L5 disc space height narrowing, minimal right lateral subluxation of L4 on L5, mild asymmetric central canal stenosis and moderately pronounced stenosis of the left intervertebral neural foramen with osteophytic impingement of the left L4 nerve. 3. Deep and prominent Schmorl's node in the central aspect of the S1 superior endplate with small posterior L5-S1 disc protrusion and moderate stenosis of the bilateral intervertebral neural foramina. 4. Pronounced L3-L4 disc space height narrowing with minimal left lateral subluxation of L3 on L4, small posterior midline cephalad disc protrusion, mild to moderate asymmetric central canal stenosis and mild stenosis of the left intervertebral neural foramen. 5. Mild central canal stenosis at L2-L3 disc level with moderately pronounced right-sided disc space height narrowing and minimal asymmetric degenerative retrolisthesis of L2 on L3. 6. Nearly grade 1 degenerative retrolisthesis of L1 on L2 with pronounced L1-L2 disc space height narrowing and moderate stenosis of the right intervertebral neural foramen. Electronically Signed: Herson Landrum MD at 13:09 EDT , Service support , CC: Fay Maki MD; Elle Leger MD Gut Sorter: Signed RENATO ABS GR + CBC Collected: 08/12/2017 Status: F Source: [place] 9:06 AM [facility] [place] REPOSITORY TYPE CODE TESTS RESULT OUT OF REFERENCE UNITS RANGE LAB WWBC 3.70-11.00 k/uL [place] WBC 4.95 LAB WRBC 4.20-6.00 m/uL Low Renato RBC 3.32 LAB WHGB 13.0-17.0 g/dL Low [place] Hemoglobin 12.0 LAB WHCT 39.0-51.0 % Low [place] Hematocrit 35.7 LAB WMCV 80.0-100.0 fL [place] High MCV 107.5 LAB WMCH 26.0-34.0 pg Ren[place] High MCH 36.1 LAB WMCHC 30.5-36.0 g/dL [place] MCHC 33.6 LAB WRDW 11.5-15.0 % [place] High RDW 15.5 LAB WPLT 150-400 k/uL Low [place] Platelet Cnt 146 LAB WMPV 9.0-12.7 fL [place] MPV 10.7 Result Comment: Test performed at: [facility], [address] [place], [place] [address] [place] [address]. LAB ABGRAN 1.45-7.50 k/uL Low Absol 1.37 Gran Count RENATO FAY BMP Collected: 08/12/2017 Status: F Source: [place] 9:06 AM [facility] REPOSITORY TYPE CODE TESTS RESULT OUT OF REFERENCE UNITS RANGE LAB NAWB 135-146 mmol/L Sodium, Whole 142 Bld LAB K1WB 3.5-5.0 mmol/L Potassium,Who 4.6 le Bld LAB CLWB 98-110 mmol/L Chloride, 108 Whole Bld LAB ICAWB 1.08-1.30 mmol/L Ionized 1.18 Calcium, WB Result Comment: Please note: This value represents ionized calcium not total calcium. LAB CO2WB 23-32 mmol/L Low TCO2, Whole 21 Blood LAB GLUWB 65-100 mg/dL High Glucose, 120 Whole Bld LAB BUNWB 10-25 mg/dL BUN, Whole 18 Blood LAB BCRET 0.70-1.40 mg/dL Creatinine,Wh 0.80 ole Bld LAB AGAPWB 0-15 mmol/L Anion Gap, 13 Whole Bld LAB GFRAA eGFR- >60 Amer. LAB GFRNAA . eGFR-All >60 Other Races Result Comment: eGFR (Estimated GFR) Units of measure: mL/min/1.73 meters squared eGFR is derived from the reexpressed MDRD Study equation using the following parameters: serum creatinine, age, gender and race. The creatinine assay has been calibrated to be traceable to IDMS. An eGFR <60 mL/min/1.73m2 for >3 months is consistent with chronic kidney disease. Refer to KDOQI guidelines for clinical interpretation. In patients with unstable renal function, e.g. those with acute kidney injury, the eGFR may not accurately reflect actual GFR. PROGRESS Observed: 07/29/2017 Status: COMPLETED Source: [place] 9:41 AM [facility] REPOSITORY HNO ID: [id number] Author: Harsh Terry Service: (none) Author Type: Physician Type: Progress Notes Filed: 07/29/2017 10:04 AM Note Text: Diagnosis: 1) [place] light chain only multiple myeloma. HPI: The patient is a 77 yo male who was evaluated for pain in the right shoulder in April of 2011. Initially he had pain across the top of the shoulder. The onset was following lifting some luggage when he was on a cruise. He underwent an injection which didn't help the pain. He also had plain films which didn't show any significant bony pathology. He was referred to an orthopedic surgeon who ordered an MRI of the shoulder on 06/29/11. The study revealed multiple metastatic deposits throughout the shoulder girdle, involving the visualized humerus, scapula and clavicle. There was a large expansile lesion within the scapula extending into the periscapular soft tissues along the deep and superficial surface there was also a large expansile lesion of the distal clavicle. Work up has revealed kappa light chain multiple myeloma. Previous therapy: 1) VMP x3 cycles. Therapy was held due to worsening fatigue and neuropathy. He also had significant difficulty with constipation throughout his treatment course. Laboratory analysis revealed marked reduction in serum kappa light chain. 2) Velcade/dex (day 1, 8 and 15 every 28 days). Began 11/06/2014. Revlimid 15 mg days 1-21 added 06/2015. PD 04/2017. Current therapy: 1) Daratumumab/Pomalyst/dex. Presents for ongoing oncologic management. Interim history: He's completed 2 weeks worth of Pomalyst. He's had no untoward side effects from it. He thinks his neuropathy in the feet might be slightly worse but he's been doing a lot more work last couple weeks outdoors. Chronic low back pain is still giving him trouble is been seeing a chronic pain management physician who gave him some epidural injections recently. They didn't help. He's not yet had physical therapy. PMH, medications and allergies as below personally reviewed by me today. Any changes documented in appropriate section. ROS: Constitutional: Denies episodes of fever and night sweats. Normal appetite. Neuro: Denies METZGER, vertigo, dizziness and imbalance. HEENT: No recent change in voice, vision or hearing. Resp: Denies cough, wheeze and hemoptysis. Denies shortness of breath at rest. CVS: Denies exertional chest pain, PND, orthopnea and LE edema. GI: Denies dysgeusia. Denies symptoms of stomatitis. Denies dysphagia and odynophagia. Denies reflux, n/v, change in bowel habits and abdominal pain. : Denies dysuria or gross hematuria. No symptoms of bladder outlet obstruction. Endo: Denies hot flashes. Denies polyuria and polydipsia. Denies heat and cold intolerance. Musculoskeletal: See above. Derm: Denies rash. Denies jaundice and diffuse pruritis. Heme: Denies unusual bleeding and unexplained bruising. Psych: Normal mood. PHYSICAL EXAM: Vitals: Blood pressure 117/58, pulse 62, temperature 37.1 ?C (98.8 ?F), weight 102.1 kg (225 lb). Well-appearing and in no acute distress. EYES: Sclerae are anicteric bilaterally. NECK: Supple. LYMPHATIC: There is no palpable cervical, supraclavicular adenopathy. RESPIRATORY: Normal air entry. CVS: Regular rhythm. ABDOMEN: The abdomen is nondistended. There is no organomegaly. No tenderness. Extremities: Trace edema both ankles/distal lower extremities-stable. SKIN: No rash. 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 No focal motor weakness. ASSESSMENT/PLAN: 1) Multiple myeloma. Light chain only disease. Relapsed with increase in serum kappa light chain and very small amount kappa in 24 hour urine. -Tolerating Pomalyst and daratumumab very well. No untoward side effect. -Recent light chain decreased. Plan: -Continue daratumumab. On treatment days, he will receive dexamethasone is a 20 mg pre-infusion medication. He does not have to take it the day after. He will take 20 mg by mouth on the in-between weeks. -Continue Pomalyst. -Continue Zometa every 3 months. -Monthly OV with myeloma lab assessment. 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 Plan: -PT referral. Harsh Terry DO CNOVSP Observed: 07/29/2017 Status: COMPLETED Source: [place] 9:30 AM [facility] REPOSITORY Visit (SP) Office ([place]) GALE VALDEZ ([id number]) [address] [facility] Date Time Provider Department 07/29/17 9:30 AM HARSH TERRY During your visit today, we recorded the following information about you: Temperature Pulse Blood pressure Weight 98.8 degrees 62/minute 117/58 102.1 kg Kianna Smith MUKUND Hill, MUKUND 07/29/2017 9:46 AM Signed Est pt, discuss recent lab results, tx tomorrow Kianna Smith MUKUND Hill, DO 07/29/2017 10:04 AM Signed Diagnosis: 1) [place] light chain only multiple myeloma. HPI: The patient is a 77 yo male who was evaluated for pain in the right shoulder in April of 2011. Initially he had pain across the top of the shoulder. The onset was following lifting some luggage when he was on a cruise. He underwent an injection which didn't help the pain. He also had plain films which didn't show any significant bony pathology. He was referred to an orthopedic surgeon who ordered an MRI of the shoulder on 06/29/11. The study revealed multiple metastatic deposits throughout the shoulder girdle, involving the visualized humerus, scapula and clavicle. There was a large expansile lesion within the scapula extending into the periscapular soft tissues along the deep and superficial surface there was also a large expansile lesion of the distal clavicle. Work up has revealed kappa light chain multiple myeloma. Previous therapy: 1) VMP x3 cycles. Therapy was held due to worsening fatigue and neuropathy. He also had significant difficulty with constipation throughout his treatment course. Laboratory analysis revealed marked reduction in serum kappa light chain. 2) Velcade/dex (day 1, 8 and 15 every 28 days). Began 11/06/2014. Revlimid 15 mg days 1-21 added 06/2015. PD 04/2017. Current therapy: 1) Daratumumab/Pomalyst/dex. Presents for ongoing oncologic management. Interim history: He's completed 2 weeks worth of Pomalyst. He's had no untoward side effects from it. He thinks his neuropathy in the feet might be slightly worse but he's been doing a lot more work last couple weeks outdoors. Chronic low back pain is still giving him trouble is been seeing a chronic pain management physician who gave him some epidural injections recently. They didn't help. He's not yet had physical therapy. PMH, medications and allergies as below personally reviewed by me today. Any changes documented in appropriate section. ROS: Constitutional: Denies episodes of fever and night sweats. Normal appetite. Neuro: Denies METZGER, vertigo, dizziness and imbalance. HEENT: No recent change in voice, vision or hearing. Resp: Denies cough, wheeze and hemoptysis. Denies shortness of breath at rest. CVS: Denies exertional chest pain, PND, orthopnea and LE edema. GI: Denies dysgeusia. Denies symptoms of stomatitis. Denies dysphagia and odynophagia. Denies reflux, n/v, change in bowel habits and abdominal pain. : Denies dysuria or gross hematuria. No symptoms of bladder outlet obstruction. Endo: Denies hot flashes. Denies polyuria and polydipsia. Denies heat and cold intolerance. Musculoskeletal: See above. Derm: Denies rash. Denies jaundice and diffuse pruritis. Heme: Denies unusual bleeding and unexplained bruising. Psych: Normal mood. PHYSICAL EXAM: Vitals: Blood pressure 117/58, pulse 62, temperature 37.1 ?C (98.8 ?F), weight 102.1 kg (225 lb). Well-appearing and in no acute distress. EYES: Sclerae are anicteric bilaterally. NECK: Supple. LYMPHATIC: There is no palpable cervical, supraclavicular adenopathy. RESPIRATORY: Normal air entry. CVS: Regular rhythm. ABDOMEN: The abdomen is nondistended. There is no organomegaly. No tenderness. Extremities: Trace edema both ankles/distal lower extremities-stable. SKIN: No rash. 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 No focal motor weakness. ASSESSMENT/PLAN: 1) Multiple myeloma. Light chain only disease. Relapsed with increase in serum kappa light chain and very small amount kappa in 24 hour urine. -Tolerating Pomalyst and daratumumab very well. No untoward side effect. -Recent light chain decreased. Plan: -Continue daratumumab. On treatment days, he will receive dexamethasone is a 20 mg pre-infusion medication. He does not have to take it the day after. He will take 20 mg by mouth on the in-between weeks. -Continue Pomalyst. -Continue Zometa every 3 months. -Monthly OV with myeloma lab assessment. 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 Plan: -PT referral. Harsh Terry DO Referring Provider: HARSH TERRY [[id number]] Allergies As of Date: 07/29/2017 Noted Allergy Reaction bandaid [Other] 11/20/2004 NEOSPORIN ([id number]*11/20/2004 Date Reviewed: 07/29/2017 Reviewed by: Kianna Smith (Paint Stock Clerk) MUKUND Hill - Fully Assessed Reason for Visit: Established Patient [175] Primary Visit Diagnosis:Multiple myeloma in relapse (HCC) [C90.02] Other Visit Diagnosis:Chronic midline low back pain without sciatica [M54.5, G89.29] Order(s):XR LUMBAR GENERAL 3V AP/LAT/L5-S1 [6124263] Order #: [id number] FUTURE CONSULT TO PHYSICAL THERAPY [9032] Order #: [id number]: 1 Follow-up and Disposition History Recorded Prescriptions as of 07/29/2017 Sig: LEVOTHYROXINE 50 MCG TABLET Take 1 tablet by mouth once d* POMALIDOMIDE 2 MG CAPSULE Take 1 capsule by mouth once * AMIODARONE 200 MG TABLET TAKE 1 TABLET EVERY DAY MIRTAZAPINE 30 MG TABLET Take 1 tablet by mouth daily * DEXAMETHASONE 4 MG TABLET Take 5 tablets once the day a* ATORVASTATIN 10 MG TABLET TAKE 1 TABLET EVERY DAY WARFARIN 3 MG TABLET TAKE 2 TABLETS (6MG) WEDNESDAY A* POLYETHYLENE GLYCOL 3350 17 G* Take 17 g by mouth once daily* ACETAMINOPHEN 500 MG TABLET Take 1,000 mg by mouth as nee* STOOL SOFTENER ORAL Take 1 tablet by mouth once d* SODIUM CHLORIDE 0.9% FLUSH Start IV as needed for labs o* * TRAMADOL 50 MG TABLET Take 1-2 tablets every 6 hour* Problem List As Of Date 07/29/2017 Noted Resolved Atrial Fibrillation [I48.91] INVALID FOR* Priority: Moderate More... Encounter for Long-Term (Current) Use of Antico*INVALID FOR* Priority: A Pure Hypercholesterolemia [E78.00] INVALID FOR* Priority: A KNEE PAIN - RIGHT [M25.569] INVALID FOR*08/18/2016 Priority: B GENERAL OSTEOARTHROSIS [M15.9] INVALID FOR* BENIGN NEOPLASM LG BOWEL [D12.6] DIVERTICULOSIS OF COLON W/O BLEED [K57.30] Internal hemorrhoids without mention of complic* 12/16/2011 KNEE JOINT REPLACEMENT STATUS [Z96.659] INVALID FOR* Sleep Apnea [G47.30] INVALID FOR* Priority: A More... Fracture of lateral malleolus [S82.63XA] INVALID FOR*08/18/2016 Priority: B More... 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 Vitamin D deficiency [E55.9] INVALID FOR* Esophagitis, unspecified [K20.9] INVALID FOR* Irritated//Inflamed Seborrheic Keratosis [L82.0]INVALID FOR*08/18/2016 Viral wart, unspecified [B07.9] INVALID FOR*08/18/2016 Neoplasm of Uncertain Behavior of skin: R/O Dys*INVALID FOR*08/18/2016 Atypical nevus of face [D22.30] INVALID FOR*08/18/2016 Sebaceous hyperplasia [L73.8] INVALID FOR*08/18/2016 Actinic skin damage [L57.8] INVALID FOR*08/18/2016 Solar lentigo [L81.4] INVALID FOR*08/18/2016 Other seborrheic keratosis [L82.1] INVALID FOR*08/18/2016 Multiple myeloma in relapse (HCC) [C90.02] INVALID FOR* Chronic low back pain [M54.5, G89.29] INVALID FOR* Hypothyroidism, acquired [E03.9] INVALID FOR* Visit Notes: >> Kianna Smith (Mukund) MUKUND Hill Rosa M July 29, 2017 9:26 AM Status: Signed Est pt, discuss recent lab results, tx tomorrow Kianna Smith MUKUND Hill Encounter Status:Closed by HARSH TERRY DO on 07/29/17 RENATO ABS GR + CBC Collected: 07/29/2017 Status: F Source: [place] 8:49 AM [facility] REPOSITORY TYPE CODE TESTS RESULT OUT OF REFERENCE UNITS RANGE LAB WWBC 3.70-11.00 k/uL [place] WBC 5.21 LAB WRBC 4.20-6.00 m/uL Low [place] RBC 3.29 LAB WHGB 13.0-17.0 g/dL Low [place] Hemoglobin 11.9 LAB WHCT 39.0-51.0 % Low [place] Hematocrit 35.4 LAB WMCV 80.0-100.0 fL [place] High MCV 107.6 LAB WMCH 26.0-34.0 pg [place] High MCH 36.2 LAB WMCHC 30.5-36.0 g/dL [place] MCHC 33.6 LAB WRDW 11.5-15.0 % [place] High RDW 16.4 LAB WPLT 150-400 k/uL Low [place] Platelet Cnt 93 LAB WMPV 9.0-12.7 fL [place] MPV 10.4 Result Comment: Test performed at: [address] [place] [address]. LAB ABGRAN 1.45-7.50 k/uL Absol Gran 2.81 Count TSH Collected: 07/29/2017 Status: F Source: [place] 8:49 AM [facility] REPOSITORY TYPE CODE TESTS RESULT OUT OF RANGE REFERENCE UNITS LAB TSH 0.400-5.500 uU/mL TSH 3.090 Performed By: #### TSH #### [facility] [address] [place], [place] [address] B2 MICROGLOBULIN Collected: 07/29/2017 Status: F Source: [place] 8:49 AM [facility] REPOSITORY TYPE CODE TESTS RESULT OUT OF REFERENCE UNITS RANGE LAB B2M 0.8-2.2 mg/L B2 Microglobulin High 3.1 Performed By: #### B2M, CMP, KLFRS, SEPG, MPASRM #### [facility] [address] [place], [place] [address] COMP METABOLIC PANEL Collected: 07/29/2017 Status: F Source: [place] 8:49 AM [facility] REPOSITORY TYPE CODE TESTS RESULT OUT OF REFERENCE UNITS RANGE LAB TP 6.3-8.0 g/dL Low Protein, Total 5.4 LAB ALB 3.9-4.9 g/dL Low Albumin 3.3 LAB CA 8.5-10.2 mg/dL Low Calcium, Total 8.1 LAB TBIL 0.2-1.3 mg/dL Bilirubin, Total 0.5 LAB ALKP 36-108 U/L Alkaline Phosphatase 50 LAB AST 14-40 U/L AST 21 LAB GLU 74-99 mg/dL Glucose High 129 Result Comment: The [place] [employer] (ADA) provides guidance for cutoff values for fasting glucose and random glucose. The ADA defines fasting as no caloric intake for at least 8 hours. Fas ting plasma glucose results between 100 to 125 mg/dL indicate increased risk for diabetes (prediabetes). Fasting plasma glucose results greater than or equal to 126 mg/dL meet the criteria for diagnosis of diabetes. In the absence of unequivocal hyperglycemia, results should be confirmed by repeat testing. In a patient with classic symptoms of hyperglycemia or hyperglycemic crisis, random plasma glucose results greater than or equal to 200 mg/dL meet the criteria for diagnosis of diabetes. Reference: Standards of Medical Care in Diabetes 2016, [place] [employer]. Diabetes Care. 2016.39(Suppl 1). LAB BUN 9-24 mg/dL BUN 16 LAB CRET 0.73-1.22 mg/dL Creatinine 0.90 LAB NA 136-144 mmol/L Sodium 142 LAB K 3.7-5.1 mmol/L Potassium 4.4 LAB CL 97-105 mmol/L Chloride High 108 LAB CO2 22-30 mmol/L CO2 22 LAB AGAP 9-18 mmol/L Anion Gap 12 LAB ALT 10-54 U/L ALT 24 LAB GFRAA eGFR- Amer. >60 LAB GFRNAA . eGFR-All Other Races >60 Result Comment: eGFR (Estimated GFR) Units of measure: mL/min/1.73 meters squared eGFR is derived from the reexpressed MDRD Study equation using the following parameters: serum creatinine, age, gender and race. The creatinine assay has been calibrated to be traceable to IDMS. An eGFR <60 mL/min/1.73m2 for >3 months is consistent with chronic kidney disease. Refer to KDOQI guidelines for clinical interpretation. In patients with unstable renal function, e.g. those with acute kidney injury, the eGFR may not accurately reflect actual GFR. Performed By: #### B2M, CMP, KLFRS, SEPG, MPASRM #### [facility] [employer] [address], [place] [address] KAPPA/ALVARADO,FREE,SER Collected: Status: F Source: [place] 07/29/2017 8:49 AM [facility] REPOSITORY TYPE CODE TESTS RESULT OUT OF REFERENCE UNITS RANGE LAB FKAPS 3.30-19.40 mg/L High [place], 55.5 Free, Serum Result Comment: Rarely, increased serum free light chains values may not be detected due to antigen excess phenomenon. Results should always be correlated with other laboratory results and clinical findings. LAB FLAMS 5.7-26.3 mg/L Lambda, Free, 6.5 Serum Result Comment: Rarely, increased serum free light chains values may not be detected due to antigen excess phenomenon. Results should always be correlated with other laboratory results and clinical findings. LAB KLRAT 0.26-1.65 High K/L Ratio, 8.54 Serum Performed By: #### B2M, CMP, KLFRS, SEPG, MPASRM #### [facility] [employer] [address] [place], [place] [address] PROTEIN ELECTROPHOR. Collected: 07/29/2017 Status: F Source: [place] 8:49 AM [facility] REPOSITORY TYPE CODE TESTS RESULT OUT OF REFERENCE UNITS RANGE LAB TPSPE 6.0-8.4 g/dL Total Protein, Low SPE 5.0 LAB ALBE 3.37-4.23 gm/dL Albumin Low 2.87 LAB A1GL 0.18-0.31 gm/dL Alpha 1 Globulin 0.26 LAB A2GL 0.52-0.97 gm/dL Alpha 2 Globulin 0.73 LAB BEGL 0.84-1.36 gm/dL Beta Globulin Low 0.68 LAB GAGL 0.70-1.44 gm/dL Gamma Globulin Low 0.45 LAB SPEINT Interpretation SEE COMMENT Result Comment: An M protein is identified on protein electrophoresis. See separate immunofixation report for characterization of the M protein. LAB LOC M Protein Gamma Location fraction LAB GPERDL 0.00 gm/dL M Rich 0.10 High Concentratn LAB SPESTF SPE Staff Review Reviewed by Anatoliy York M.D. ([id number]) Performed By: #### B2M, CMP, KLFRS, SEPG, MPASRM #### [facility] [employer] [address] [place], [place] [address] MONOCLONL PROTEIN,BL Collected: 07/29/2017 Status: F Source: [place] 8:49 AM [facility] REPOSITORY TYPE CODE TESTS RESULT OUT OF RANGE REFERENCE UNITS LAB MPAIGG 717-1411 mg/dL Low MPA Serum IgG 382 LAB MPAIGA 78-391 mg/dL Low MPA Serum IgA 7 LAB MPAIGM 53-334 mg/dL Low MPA Serum IgM 11 LAB MPAK 534-1267 mg/dL Low Serum [place] 451 LAB MPAL 253-653 mg/dL Low Serum Lambda 84 LAB MPAKL 1-3 High MPA Klaudia/Louis Ratio 5.37 LAB MPAR No M protein is MPA Result Abnormal identified. M protein Alert is present. LAB INTP MPA Interpretation SEE COMMENT Result Comment: Atypical restricted bands are present in the IgG and kappa regions. Consistent with IgG kappa monoclonal gammopathy. LAB MPASTF Staff Reviewed by Review Anatoliy York M.D. ([id number]) Performed By: #### B2M, CMP, KLFRS, SEPG, MPASRM #### [facility] [address] [place], [place] [address] PROTEIN ELEC,UR RAND Collected: 07/29/2017 Status: F Source: [place] 8:49 AM [facility] REPOSITORY TYPE CODE TESTS RESULT OUT OF REFERENCE UNITS RANGE LAB UTPR 0-20 mg/dL Protein Urine Random 18 LAB UALB % Albumin 19.4 LAB UA1G >0 % Alpha 1 Globulin 8.5 LAB UA2G % Alpha 2 Globulin 29.1 LAB UBEG % Beta Globulin 24.5 LAB UGAG % Gamma Globulin 18.6 LAB UPEINT Interpretation SEE COMMENT Result Comment: An M protein is identified on protein electrophoresis. See separate immunofixation report for characterization of the M protein. LAB UPESTF Staff Reviewed by Review Anatoliy York M.D. ([id number]) Performed By: #### JACEY LENNONA #### [facility] [employer] [address] [place], [place] [address] MONOCLONAL PROT UR Collected: 07/29/2017 Status: F Source: [place] 8:49 AM [facility] REPOSITORY TYPE CODE TESTS RESULT OUT OF RANGE REFERENCE UNITS LAB UMPA No M protein is UMPA Result Abnormal identified. M protein Alert is present. LAB UINTP UMPA Interpretation SEE COMMENT Result Comment: An atypical restricted band is present in the kappa region. The presence of free kappa light chains in the urine is consistent with a kappa-containing monoclonal gammopathy. LAB UMPS UMPA Reviewed by Staff Review Anatoliy York M.D. ([id number]) Performed By: #### ROB LENNON #### [facility] [employer] [address] [place], [place] [address] PROGRESS Observed: 07/15/2017 Status: COMPLETED Source: [place] 11:30 AM [facility] REPOSITORY HNO ID: [id number] Author: Elle Leger Service: (none) Author Type: Physician Type: Progress Notes Filed: 07/15/2017 1:27 PM Note Text: I agree with the advice given; stay same and recheck in 4 weeks Elle Leger MD PROGRESS Observed: 07/15/2017 Status: COMPLETED Source: [place] 9:09 AM [facility] REPOSITORY HNO ID: [id number] Author: Demi Brizuela RN Service: (none) Author Type: (none) Type: Progress Notes Filed: 07/15/2017 9:17 AM Note Text: Patient had INR completed at [facility] Patient's INR is 2.2 Patient is currently taking 6 mg Tues/Fri/Sun and 3 mg all other days Patient's last dose change was 04/30/17 due to low INR at 1.7 Patient has had no medication and no change in diet. Advised patient to continue on same dose and they would only be contacted with different instructions after provider review. Written instructions were given to patient and patient verbalized understanding. Presently, patient has been scheduled for 08/13/17 for INR follow up. RENATO ABS GR + CBC Collected: 07/15/2017 Status: F Source: [place] 8:51 AM [facility] REPOSITORY TYPE CODE TESTS RESULT OUT OF REFERENCE UNITS RANGE LAB WWBC 3.70-11.00 k/uL [place] WBC 7.11 LAB WRBC 4.20-6.00 m/uL Low [place] RBC 3.45 LAB WHGB 13.0-17.0 g/dL Low [place] Hemoglobin 12.1 LAB WHCT 39.0-51.0 % Low [place] Hematocrit 37.1 LAB WMCV 80.0-100.0 fL [place] High MCV 107.5 LAB WMCH 26.0-34.0 pg [place] High MCH 35.1 LAB WMCHC 30.5-36.0 g/dL [place] MCHC 32.6 LAB WRDW 11.5-15.0 % [place] High RDW 17.3 LAB WPLT 150-400 k/uL Low [place] Platelet Cnt 132 LAB WMPV 9.0-12.7 fL [place] MPV 9.4 Result Comment: Test performed at: [facility], [address] [place] [address]. LAB ABGRAN 1.45-7.50 k/uL Absol Gran 3.95 Count RENATO ISTAT BMP Collected: 07/15/2017 Status: F Source: [place] 8:51 AM [facility] REPOSITORY TYPE CODE TESTS RESULT OUT OF REFERENCE UNITS RANGE LAB NAWB 135-146 mmol/L Sodium, Whole 141 Bld LAB K1WB 3.5-5.0 mmol/L Potassium,Who 4.2 le Bld LAB CLWB 98-110 mmol/L Chloride, 108 Whole Bld LAB ICAWB 1.08-1.30 mmol/L Ionized 1.21 Calcium, WB Result Comment: Please note: This value represents ionized calcium not total calcium. LAB CO2WB 23-32 mmol/L TCO2, Whole 24 Blood LAB GLUWB 65-100 mg/dL High Glucose, 133 Whole Bld LAB BUNWB 10-25 mg/dL BUN, Whole 19 Blood LAB BCRET 0.70-1.40 mg/dL Creatinine,Wh 0.90 ole Bld LAB AGAPWB 0-15 mmol/L Anion Gap, 9 Whole Bld LAB GFRAA eGFR- >60 Amer. LAB GFRNAA . eGFR-All >60 Other Races Result Comment: eGFR (Estimated GFR) Units of measure: mL/min/1.73 meters squared eGFR is derived from the reexpressed MDRD Study equation using the following parameters: serum creatinine, age, gender and race. The creatinine assay has been calibrated to be traceable to IDMS. An eGFR <60 mL/min/1.73m2 for >3 months is consistent with chronic kidney disease. Refer to KDOQI guidelines for clinical interpretation. In patients with unstable renal function, e.g. those with acute kidney injury, the eGFR may not accurately reflect actual GFR. PROGRESS Observed: 06/30/2017 Status: COMPLETED Source: [place] 10:54 AM [facility] REPOSITORY O ID: [id number] Author: Harsh Terry Service: (none) Author Type: Physician Type: Progress Notes Filed: 06/30/2017 11:21 AM Note Text: Diagnosis: 1) [place] light chain only multiple myeloma. HPI: The patient is a 77 yo male who was evaluated for pain in the right shoulder in April of 2011. Initially he had pain across the top of the shoulder. The onset was following lifting some luggage when he was on a cruise. He underwent an injection which didn't help the pain. He also had plain films which didn't show any significant bony pathology. He was referred to an orthopedic surgeon who ordered an MRI of the shoulder on 06/29/11. The study revealed multiple metastatic deposits throughout the shoulder girdle, involving the visualized humerus, scapula and clavicle. There was a large expansile lesion within the scapula extending into the periscapular soft tissues along the deep and superficial surface there was also a large expansile lesion of the distal clavicle. Work up has revealed kappa light chain multiple myeloma. Previous therapy: 1) VMP x3 cycles. Therapy was held due to worsening fatigue and neuropathy. He also had significant difficulty with constipation throughout his treatment course. Laboratory analysis revealed marked reduction in serum kappa light chain. 2) Velcade/dex (day 1, 8 and 15 every 28 days). Began 11/06/2014. Revlimid 15 mg days 1-21 added 06/2015. PD 04/2017. Current therapy: 1) Daratumumab with dex. Plan to add Pomalyst pending tolerance. Presents for ongoing oncologic management. Interim history: His been having more lower back pain the last few days but is it is better today than its been. Remember any specific injury. This is been a chronic problem. Otherwise he is tolerating daratumumab without any symptom ask side effects. Second dose was delayed secondary to thrombocytopenia. He's been getting consistent dosing since then. Stable symptoms of neuropathy in the feet. PMH, medications and allergies as below personally reviewed by me today. Any changes documented in appropriate section. ROS: Constitutional: Denies episodes of fever and night sweats. Not significantly fatigued. Normal appetite. Neuro: Denies METZGER, vertigo, dizziness and imbalance. HEENT: No recent change in voice, vision or hearing. Resp: Denies cough, wheeze and hemoptysis. Denies shortness of breath at rest. CVS: Denies exertional chest pain, PND, orthopnea and LE edema. GI: Denies dysgeusia. Denies symptoms of stomatitis. Denies dysphagia and odynophagia. Denies reflux, n/v, change in bowel habits and abdominal pain. : Denies dysuria or gross hematuria. No symptoms of bladder outlet obstruction. Endo: Denies hot flashes. Denies polyuria and polydipsia. Denies heat and cold intolerance. Musculoskeletal: See above. Derm: Denies rash. Denies jaundice and diffuse pruritis. Heme: Denies unusual bleeding and unexplained bruising. Psych: Normal mood. PHYSICAL EXAM: Vitals: Blood pressure 94/64, pulse 86, temperature 37.3 ?C (99.2 ?F), temperature source Oral, weight 100.7 kg (222 lb). Well-appearing and in no acute distress. EYES: Sclerae are anicteric bilaterally. NECK: Supple. LYMPHATIC: There is no palpable cervical, supraclavicular adenopathy. RESPIRATORY: Normal air entry. CVS: Regular rhythm. ABDOMEN: The abdomen is nondistended. There is no organomegaly. No tenderness. Extremities: Trace edema both ankles/distal lower extremities-stable. SKIN: No rash. 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 No focal motor weakness. ASSESSMENT/PLAN: 1) Multiple myeloma. Light chain only disease. Relapsed with increase in serum kappa light chain and very small amount kappa in 24 hour urine. -Tolerating daratumumab without symptomatic side effect. -Discussed with him adding Pomalyst. We'll start dosing at 2 mg. I think the 4 mg dose would likely lead to more hematologic toxicity. -Will plan to begin Pomalyst on a day that he receives daratumumab. On that day he will receive dexamethasone is a 20 mg pre-infusion medication. He does not have to take it the day after. He will take 20 mg by mouth on the in-between weeks. Plan: -Continue daratumumab. -Continue Zometa every 3 months. -Rx for Pomalyst. Harsh Terry DO CNOVSP Observed: 06/30/2017 Status: COMPLETED Source: [place] 10:50 AM [facility] REPOSITORY Visit (SP) Office (H[place]) GALE VALDEZ ([id number]) 1940 [address] Date Time Provider Department 06/30/17 10:50 AM HARSH TERRY During your visit today, we recorded the following information about you: Temperature Pulse Blood pressure Weight 99.2 degrees 86/minute 94/64 100.7 kg Harsh Terry DO 06/30/2017 11:21 AM Signed Diagnosis: 1) [place] light chain only multiple myeloma. HPI: The patient is a 77 yo male who was evaluated for pain in the right shoulder in April of 2011. Initially he had pain across the top of the shoulder. The onset was following lifting some luggage when he was on a cruise. He underwent an injection which didn't help the pain. He also had plain films which didn't show any significant bony pathology. He was referred to an orthopedic surgeon who ordered an MRI of the shoulder on 06/29/11. The study revealed multiple metastatic deposits throughout the shoulder girdle, involving the visualized humerus, scapula and clavicle. There was a large expansile lesion within the scapula extending into the periscapular soft tissues along the deep and superficial surface there was also a large expansile lesion of the distal clavicle. Work up has revealed kappa light chain multiple myeloma. Previous therapy: 1) VMP x3 cycles. Therapy was held due to worsening fatigue and neuropathy. He also had significant difficulty with constipation throughout his treatment course. Laboratory analysis revealed marked reduction in serum kappa light chain. 2) Velcade/dex (day 1, 8 and 15 every 28 days). Began 11/06/2014. Revlimid 15 mg days 1-21 added 06/2015. PD 04/2017. Current therapy: 1) Daratumumab with dex. Plan to add Pomalyst pending tolerance. Presents for ongoing oncologic management. Interim history: His been having more lower back pain the last few days but is it is better today than its been. Remember any specific injury. This is been a chronic problem. Otherwise he is tolerating daratumumab without any symptom ask side effects. Second dose was delayed secondary to thrombocytopenia. He's been getting consistent dosing since then. Stable symptoms of neuropathy in the feet. PMH, medications and allergies as below personally reviewed by me today. Any changes documented in appropriate section. ROS: Constitutional: Denies episodes of fever and night sweats. Not significantly fatigued. Normal appetite. Neuro: Denies METZGER, vertigo, dizziness and imbalance. HEENT: No recent change in voice, vision or hearing. Resp: Denies cough, wheeze and hemoptysis. Denies shortness of breath at rest. CVS: Denies exertional chest pain, PND, orthopnea and LE edema. GI: Denies dysgeusia. Denies symptoms of stomatitis. Denies dysphagia and odynophagia. Denies reflux, n/v, change in bowel habits and abdominal pain. : Denies dysuria or gross hematuria. No symptoms of bladder outlet obstruction. Endo: Denies hot flashes. Denies polyuria and polydipsia. Denies heat and cold intolerance. Musculoskeletal: See above. Derm: Denies rash. Denies jaundice and diffuse pruritis. Heme: Denies unusual bleeding and unexplained bruising. Psych: Normal mood. PHYSICAL EXAM: Vitals: Blood pressure 94/64, pulse 86, temperature 37.3 ?C (99.2 ?F), temperature source Oral, weight 100.7 kg (222 lb). Well-appearing and in no acute distress. EYES: Sclerae are anicteric bilaterally. NECK: Supple. LYMPHATIC: There is no palpable cervical, supraclavicular adenopathy. RESPIRATORY: Normal air entry. CVS: Regular rhythm. ABDOMEN: The abdomen is nondistended. There is no organomegaly. No tenderness. Extremities: Trace edema both ankles/distal lower extremities-stable. SKIN: No rash. 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 No focal motor weakness. ASSESSMENT/PLAN: 1) Multiple myeloma. Light chain only disease. Relapsed with increase in serum kappa light chain and very small amount kappa in 24 hour urine. -Tolerating daratumumab without symptomatic side effect. -Discussed with him adding Pomalyst. We'll start dosing at 2 mg. I think the 4 mg dose would likely lead to more hematologic toxicity. -Will plan to begin Pomalyst on a day that he receives daratumumab. On that day he will receive dexamethasone is a 20 mg pre-infusion medication. He does not have to take it the day after. He will take 20 mg by mouth on the in-between weeks. Plan: -Continue daratumumab. -Continue Zometa every 3 months. -Rx for Pomalyst. Harsh Terry DO Referring Provider: HARSH TERRY [[id number]] Allergies As of Date: 06/30/2017 Noted Allergy Reaction bandaid [Other] 11/20/2004 NEOSPORIN ([id number]*11/20/2004 Date Reviewed: 06/30/2017 Reviewed by: Delmis Cassidy - Fully Assessed Reason for Visit: Established Patient [175] Primary Visit Diagnosis:Multiple myeloma in relapse (HCC) [C90.02] Order(s):KAPPA/ALVARADO,FREE,SER [SQKLFRS] Order #: [id number] FUTURE MONOCLONAL PROT BLD W/INTERP [SQMPASRM] Order #: [id number] FUTURE PROTEIN ELECTROPHORESIS W/INTERP [SQSEPG] Order #: [id number] FUTURE pomalidomide (POMALYST) 2 mg cap capsuleTake 1 capsule by mouth once daily. for 21 days then off 1 week.Disp: 21 capsuleRfl: 5 Follow-up and Disposition History Recorded Prescriptions as of 06/30/2017 Sig: LEVOTHYROXINE 25 MCG TABLET TAKE 1 TABLET EVERY DAY AMIODARONE 200 MG TABLET TAKE 1 TABLET EVERY DAY MIRTAZAPINE 30 MG TABLET Take 1 tablet by mouth daily * DEXAMETHASONE 4 MG TABLET Take 5 tablets once the day a* ATORVASTATIN 10 MG TABLET TAKE 1 TABLET EVERY DAY WARFARIN 3 MG TABLET TAKE 2 TABLETS (6MG) Wednesday* POLYETHYLENE GLYCOL 3350 17 G* Take 17 g by mouth once daily* ACETAMINOPHEN 500 MG TABLET Take 1,000 mg by mouth as nee* STOOL SOFTENER ORAL Take 1 tablet by mouth once d* SODIUM CHLORIDE 0.9% FLUSH Start IV as needed for labs o* * TRAMADOL 50 MG TABLET Take 1-2 tablets every 6 hour* POMALIDOMIDE 2 MG CAPSULE Take 1 capsule by mouth once * Medication notes this encounter WARFARIN 3 MG TABLET >> Delmis Cassidy MA 06/30/2017 10:46 AM >> DELMIS CASSIDY MA WedJune 30, 2017 10:46 AM Taking 6mg on Tues, Fri, Sun AND 3mg the other days. Problem List As Of Date 06/30/2017 Noted Resolved Atrial Fibrillation [I48.91] INVALID FOR* Priority: Moderate More... Encounter for Long-Term (Current) Use of Antico*INVALID FOR* Priority: A Pure Hypercholesterolemia [E78.00] INVALID FOR* Priority: A KNEE PAIN - RIGHT [M25.569] INVALID FOR*08/18/2016 Priority: B GENERAL OSTEOARTHROSIS [M15.9] INVALID FOR* BENIGN NEOPLASM LG BOWEL [D12.6] DIVERTICULOSIS OF COLON W/O BLEED [K57.30] Internal hemorrhoids without mention of complic* 12/16/2011 KNEE JOINT REPLACEMENT STATUS [Z96.659] INVALID FOR* Sleep Apnea [G47.30] INVALID FOR* Priority: A More... Fracture of lateral malleolus [S82.63XA] INVALID FOR*08/18/2016 Priority: B More... 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 Vitamin D deficiency [E55.9] INVALID FOR* Esophagitis, unspecified [K20.9] INVALID FOR* Irritated//Inflamed Seborrheic Keratosis [L82.0]INVALID FOR*08/18/2016 Viral wart, unspecified [B07.9] INVALID FOR*08/18/2016 Neoplasm of Uncertain Behavior of skin: R/O Dys*INVALID FOR*08/18/2016 Atypical nevus of face [D22.30] INVALID FOR*08/18/2016 Sebaceous hyperplasia [L73.8] INVALID FOR*08/18/2016 Actinic skin damage [L57.8] INVALID FOR*08/18/2016 Solar lentigo [L81.4] INVALID FOR*08/18/2016 Other seborrheic keratosis [L82.1] INVALID FOR*08/18/2016 Multiple myeloma in relapse (HCC) [C90.02] INVALID FOR* Chronic low back pain [M54.5, G89.29] INVALID FOR* Hypothyroidism, acquired [E03.9] INVALID FOR* Encounter Status:Closed by HARSH TERRY DO on 06/30/17 [facility] Collected: 06/30/2017 Status: F Source: [place] 8:14 AM [facility] REPOS[facility] TYPE CODE TESTS RESULT OUT OF REFERENCE UNITS RANGE LAB NAWB 135-146 mmol/L Sodium, Whole 138 Bld LAB K1WB 3.5-5.0 mmol/L Potassium,Who 4.1 le Bld LAB CLWB 98-110 mmol/L Chloride, 104 Whole Bld LAB ICAWB 1.08-1.30 mmol/L Ionized 1.14 Calcium, WB Result Comment: Please note: This value represents ionized calcium not total calcium. LAB CO2WB 23-32 mmol/L TCO2, Whole 23 Blood LAB GLUWB 65-100 mg/dL High Glucose, 114 Whole Bld LAB BUNWB 10-25 mg/dL BUN, Whole 23 Blood LAB BCRET 0.70-1.40 mg/dL Creatinine,Wh 0.90 ole Bld LAB AGAPWB 0-15 mmol/L Anion Gap, 11 Whole Bld LAB GFRAA eGFR- >60 Amer. LAB GFRNAA . eGFR-All >60 Other Races Result Comment: eGFR (Estimated GFR) Units of measure: mL/min/1.73 meters squared eGFR is derived from the reexpressed MDRD Study equation using the following parameters: serum creatinine, age, gender and race. The creatinine assay has been calibrated to be traceable to IDMS. An eGFR <60 mL/min/1.73m2 for >3 months is consistent with chronic kidney disease. Refer to KDOQI guidelines for clinical interpretation. In patients with unstable renal function, e.g. those with acute kidney injury, the eGFR may not accurately reflect actual GFR. RENATO ABS GR + CBC Collected: 06/30/2017 Status: F Source: [place] 8:14 AM [facility] REPOSITORY TYPE CODE TESTS RESULT OUT OF REFERENCE UNITS RANGE LAB WWBC 3.70-11.00 k/uL [place] WBC 5.80 LAB WRBC 4.20-6.00 m/uL Low [place] RBC 3.48 LAB WHGB 13.0-17.0 g/dL Low [place] Hemoglobin 12.3 LAB WHCT 39.0-51.0 % Low [place] Hematocrit 36.5 LAB WMCV 80.0-100.0 fL [place] High MCV 104.9 LAB WMCH 26.0-34.0 pg [place] High MCH 35.3 LAB WMCHC 30.5-36.0 g/dL [place] MCHC 33.7 LAB WRDW 11.5-15.0 % [place] High RDW 18.4 LAB WPLT 150-400 k/uL Low [place] Platelet Cnt 131 LAB WMPV 9.0-12.7 fL [place] MPV 10.7 Result Comment: Test performed at: [facility], [address] [place] [address] Rd[address] [place] [address]. LAB ABGRAN 1.45-7.50 k/uL Absol Gran 3.29 Count ALT Collected: 06/30/2017 Status: F Source: [place] 8:14 AM [facility] REPOSITORY TYPE CODE TESTS RESULT OUT OF RANGE REFERENCE UNITS LAB ALT 10-54 U/L ALT 37 Performed By: #### ALT, LIPB, TSH #### [facility] [employer] [address] [place], [place] [address] LIPID PANEL, BASIC Collected: 06/30/2017 Status: F Source: [place] 8:14 AM [facility] REPOSITORY TYPE CODE TESTS RESULT OUT OF REFERENCE UNITS RANGE LAB CHOL <200 mg/dL Cholesterol 180 Result Comment: <200 mg/dL, Desirable 200-239 mg/dL, Borderline high >239 mg/dL, High LAB TRIGLY <150 mg/dL Triglyceride 108 Result Comment: <150 mg/dL, Normal 150-199 mg/dL, Borderline high 200-499 mg/dL, High >499 mg/dL, Very high LAB HDL >39 mg/dL HDL-Cholesterol 66 Result Comment: 40-59 mg/dL, Acceptable >59 mg/dL, High: Negative risk factor for coronary heart disease <40 mg/dL, Low: Positive risk factor for coronary heart disease LAB LDL <100 mg/dL LDL-Cholesterol 92 Result Comment: <100 mg/dL, Optimal 100-129 mg/dL, Near optimal/above optimal 130-159 mg/dL, Borderline high 160-189 mg/dL, High >189 mg/dL, Very high Secondary prevention optimal LDL Cholesterol levels are recommended to be < 70 mg/dL LAB NONHDL <130 mg/dL Non HDL Cholesterol 114 Result Comment: <130 mg/dL, Optimal 130-159 mg/dL, Near optimal/above optimal 160-189 mg/dL, Borderline high 190-219 mg/dL, High >219 mg/dL, Very high Secondary prevention optimal non HDL Cholesterol levels are recommended to be < 100 mg/dL LAB FT hrs Fasting Time 12 LAB VLDL <30 mg/dL VLDL Cholesterol 22 LAB TCHDL <5.10 TC:HDL Ratio 2.73 LAB LDLHDL <2.54 LDL:HDL Ratio 1.39 Result Comment: Reference: 1. National Cholesterol Education Program ATP III Guideline At-A-Glance Quick Desk Reference: National Heart, Lung, and Blood Barry. National Institutes of Health. 2001: NIH Publication No. 01-3305. 2. An International Atherosclerosis Society position paper: global recommendations for the management of dyslipidemia: executive summary, Atherosclerosis. 2014: 232(2):410-413. Performed By: #### ALT, LIPB, TSH #### [facility] [address] [place], [place] [address] TSH Collected: 06/30/2017 Status: F Source: [place] 8:14 AM [facility] REPOSITORY TYPE CODE TESTS RESULT OUT OF RANGE REFERENCE UNITS LAB TSH 0.400-5.500 uU/mL High TSH 7.690 Performed By: #### ALT, LIPB, TSH #### [facility] [address] [place], [place] [address] REN[facility] ISTAT BMP Collected: 06/23/2017 Status: F Source: [place] 8:26 AM [facility] REPOSITORY TYPE CODE TESTS RESULT OUT OF REFERENCE UNITS RANGE LAB NAWB 135-146 mmol/L Sodium, Whole 138 Bld LAB K1WB 3.5-5.0 mmol/L Potassium,Who 4.4 le Bld LAB CLWB 98-110 mmol/L Chloride, 102 Whole Bld LAB ICAWB 1.08-1.30 mmol/L Ionized 1.19 Calcium, WB Result Comment: Please note: This value represents ionized calcium not total calcium. LAB CO2WB 23-32 mmol/L TCO2, Whole 27 Blood LAB GLUWB 65-100 mg/dL High Glucose, 104 Whole Bld LAB BUNWB 10-25 mg/dL BUN, Whole 23 Blood LAB BCRET 0.70-1.40 mg/dL Creatinine,Wh 1.00 ole Bld LAB AGAPWB 0-15 mmol/L Anion Gap, 9 Whole Bld LAB GFRAA eGFR- >60 Amer. LAB GFRNAA . eGFR-All >60 Other Races Result Comment: eGFR (Estimated GFR) Units of measure: mL/min/1.73 meters squared eGFR is derived from the reexpressed MDRD Study equation using the following parameters: serum creatinine, age, gender and race. The creatinine assay has been calibrated to be traceable to IDMS. An eGFR <60 mL/min/1.73m2 for >3 months is consistent with chronic kidney disease. Refer to KDOQI guidelines for clinical interpretation. In patients with unstable renal function, e.g. those with acute kidney injury, the eGFR may not accurately reflect actual GFR. RENATO ABS GR + CBC Collected: 06/23/2017 Status: F Source: [place] 8:26 AM [facility] REPOSITORY TYPE CODE TESTS RESULT OUT OF REFERENCE UNITS RANGE LAB WWBC 3.70-11.00 k/uL [place] WBC 5.19 LAB WRBC 4.20-6.00 m/uL Low [place] RBC 3.39 LAB WHGB 13.0-17.0 g/dL Low [place] Hemoglobin 12.1 LAB WHCT 39.0-51.0 % Low [place] Hematocrit 35.3 LAB WMCV 80.0-100.0 fL [place] High MCV 104.1 LAB WMCH 26.0-34.0 pg [place] High MCH 35.7 LAB WMCHC 30.5-36.0 g/dL [place] MCHC 34.3 LAB WRDW 11.5-15.0 % [place] High RDW 18.0 LAB WPLT 150-400 k/uL Low [place] Platelet Cnt 130 LAB WMPV 9.0-12.7 fL [place] MPV 10.2 Result Comment: Test performed at: [facility], [address] [place] [address] Rd[address] [place] [address]. LAB ABGRAN 1.45-7.50 k/uL Absol Gran 3.33 Count OBSOLETE Observed: 06/21/2017 Status: COMPLETED Source: [place] 12:00 AM [facility] [place] REPOSITORY Refill (AGCARDWST) GALE VALDEZ ([id number]) 1940 [facility] Date Time Provider Department 06/21/17 THIEN PATTERSON AGCARDWST During your visit today, we recorded the following information about you: Allergies As of Date: 06/21/2017 Noted Allergy Reaction NEOSPORIN ([id number]*11/20/2004 bandaid [Other] 11/20/2004 Date Reviewed: 06/17/2017 Reviewed by: Amber Rondon (Rn) LUDA Webster - Fully Assessed Reason for Visit: Refill Request [94] Order(s):levothyroxine (SYNTHROID) 25 mcg tabletTAKE 1 TABLET EVERY DAYDisp: 90 tabletRfl: 3 Prescriptions as of 06/21/2017 Sig: LEVOTHYROXINE 25 MCG TABLET TAKE 1 TABLET EVERY DAY AMIODARONE 200 MG TABLET TAKE 1 TABLET EVERY DAY MIRTAZAPINE 30 MG TABLET Take 1 tablet by mouth daily * DEXAMETHASONE 4 MG TABLET Take 5 tablets once the day a* ATORVASTATIN 10 MG TABLET TAKE 1 TABLET EVERY DAY WARFARIN 3 MG TABLET TAKE 2 TABLETS (6MG) Wednesday* POLYETHYLENE GLYCOL 3350 17 G* Take 17 g by mouth once daily* ACETAMINOPHEN 500 MG TABLET Take 1,000 mg by mouth as nee* STOOL SOFTENER ORAL Take 1 tablet by mouth once d* SODIUM CHLORIDE 0.9% FLUSH Start IV as needed for labs o* * TRAMADOL 50 MG TABLET Take 1-2 tablets every 6 hour* Problem List As Of Date 06/21/2017 Noted Resolved Atrial Fibrillation [I48.91] INVALID FOR* Priority: Moderate More... Encounter for Long-Term (Current) Use of Antico*INVALID FOR* Priority: A Pure Hypercholesterolemia [E78.00] INVALID FOR* Priority: A KNEE PAIN - RIGHT [M25.569] INVALID FOR*08/18/2016 Priority: B GENERAL OSTEOARTHROSIS [M15.9] INVALID FOR* BENIGN NEOPLASM LG BOWEL [D12.6] DIVERTICULOSIS OF COLON W/O BLEED [K57.30] Internal hemorrhoids without mention of complic* 12/16/2011 KNEE JOINT REPLACEMENT STATUS [Z96.659] INVALID FOR* Sleep Apnea [G47.30] INVALID FOR* Priority: A More... Fracture of lateral malleolus [S82.63XA] INVALID FOR*08/18/2016 Priority: B More... 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 Vitamin D deficiency [E55.9] INVALID FOR* Esophagitis, unspecified [K20.9] INVALID FOR* Irritated//Inflamed Seborrheic Keratosis [L82.0]INVALID FOR*08/18/2016 Viral wart, unspecified [B07.9] INVALID FOR*08/18/2016 Neoplasm of Uncertain Behavior of skin: R/O Dys*INVALID FOR*08/18/2016 Atypical nevus of face [D22.30] INVALID FOR*08/18/2016 Sebaceous hyperplasia [L73.8] INVALID FOR*08/18/2016 Actinic skin damage [L57.8] INVALID FOR*08/18/2016 Solar lentigo [L81.4] INVALID FOR*08/18/2016 Other seborrheic keratosis [L82.1] INVALID FOR*08/18/2016 Multiple myeloma in relapse (HCC) [C90.02] INVALID FOR* Chronic low back pain [M54.5, G89.29] INVALID FOR* Hypothyroidism, acquired [E03.9] INVALID FOR* Prescriptions ordered this encounter Disp Refills Start End LEVOTHYROXINE 25 MCG TABLET 90 t* 3 06/22/2017 Sig: TAKE 1 TABLET EVERY DAY Medications Discontinued During This Encounter levothyroxine (SYNTHROID) 25 mcg tab* 90 t* 3 05/13/2016 06/22/2017 Sig: TAKE 1 TABLET ONCE DAILY Disc: Reason for discontinue is not on file. Encounter Status:Closed by NIC BERNARD MA on 06/22/17 OBSOLETE Observed: 06/19/2017 Status: COMPLETED Source: [place] 12:00 AM [facility] [place] REPOSITORY Refill (AGCARDWST) GALE VALDEZ ([id number]) [address] [facility] Date Time Provider Department 06/19/17 THIEN PATTERSON AGCARDWST During your visit today, we recorded the following information about you: Thien Patterson MD 06/21/2017 9:54 AM Signed Labs were due on 06/04/17 Thien Patterson MD The following approved medication requests have been transmitted electronically. Signed Prescriptions Disp Refills amiodarone (PACERONE) 200 mg tablet 90 tablet 3 Sig: TAKE 1 TABLET EVERY DAY DON: No Authorizing Provider: THIEN PATTERSON MD Allergies As of Date: 06/19/2017 Noted Allergy Reaction NEOSPORIN ([id number]*11/20/2004 bandaid [Other] 11/20/2004 Date Reviewed: 06/17/2017 Reviewed by: Amber Rondon (Rn) LUDA Webster - Fully Assessed Reason for Visit: Refill Request [94] Order(s):amiodarone (PACERONE) 200 mg tabletTAKE 1 TABLET EVERY DAYDisp: 90 tabletRfl: 3 Prescriptions as of 06/19/2017 Sig: AMIODARONE 200 MG TABLET TAKE 1 TABLET EVERY DAY MIRTAZAPINE 30 MG TABLET Take 1 tablet by mouth daily * DEXAMETHASONE 4 MG TABLET Take 5 tablets once the day a* ATORVASTATIN 10 MG TABLET TAKE 1 TABLET EVERY DAY WARFARIN 3 MG TABLET TAKE 2 TABLETS (6MG) WEDNESDAY A* X LEVOTHYROXINE 25 MCG TABLET TAKE 1 TABLET ONCE DAILY POLYETHYLENE GLYCOL 3350 17 G* Take 17 g by mouth once daily* ACETAMINOPHEN 500 MG TABLET Take 1,000 mg by mouth as nee* STOOL SOFTENER ORAL Take 1 tablet by mouth once d* SODIUM CHLORIDE 0.9% FLUSH Start IV as needed for labs o* * TRAMADOL 50 MG TABLET Take 1-2 tablets every 6 hour* Problem List As Of Date 06/19/2017 Noted Resolved Atrial Fibrillation [I48.91] INVALID FOR* Priority: Moderate More... Encounter for Long-Term (Current) Use of Antico*INVALID FOR* Priority: A Pure Hypercholesterolemia [E78.00] INVALID FOR* Priority: A KNEE PAIN - RIGHT [M25.569] INVALID FOR*08/18/2016 Priority: B GENERAL OSTEOARTHROSIS [M15.9] INVALID FOR* BENIGN NEOPLASM LG BOWEL [D12.6] DIVERTICULOSIS OF COLON W/O BLEED [K57.30] Internal hemorrhoids without mention of complic* 12/16/2011 KNEE JOINT REPLACEMENT STATUS [Z96.659] INVALID FOR* Sleep Apnea [G47.30] INVALID FOR* Priority: A More... Fracture of lateral malleolus [S82.63XA] INVALID FOR*08/18/2016 Priority: B More... 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 Vitamin D deficiency [E55.9] INVALID FOR* Esophagitis, unspecified [K20.9] INVALID FOR* Irritated//Inflamed Seborrheic Keratosis [L82.0]INVALID FOR*08/18/2016 Viral wart, unspecified [B07.9] INVALID FOR*08/18/2016 Neoplasm of Uncertain Behavior of skin: R/O Dys*INVALID FOR*08/18/2016 Atypical nevus of face [D22.30] INVALID FOR*08/18/2016 Sebaceous hyperplasia [L73.8] INVALID FOR*08/18/2016 Actinic skin damage [L57.8] INVALID FOR*08/18/2016 Solar lentigo [L81.4] INVALID FOR*08/18/2016 Other seborrheic keratosis [L82.1] INVALID FOR*08/18/2016 Multiple myeloma in relapse (HCC) [C90.02] INVALID FOR* Chronic low back pain [M54.5, G89.29] INVALID FOR* Hypothyroidism, acquired [E03.9] INVALID FOR* Prescriptions ordered this encounter Disp Refills Start End AMIODARONE 200 MG TABLET 90 t* 3 06/21/2017 Sig: TAKE 1 TABLET EVERY DAY Medications Discontinued During This Encounter amiodarone (PACERONE) 200 mg tablet 90 t* 3 12/09/2016 06/21/2017 Class: Med Update Route: ORAL Sig: Take 0.5 tablets by mouth once daily. Disc: Reason for discontinue is not on file. Encounter Status:Closed by NIC BERNARD MA on 06/23/17 PROGRESS Observed: 06/16/2017 Status: COMPLETED Source: [place] 1:36 PM [facility] REPOSITORY HNO ID: [id number] Author: Elle Leger Service: (none) Author Type: Physician Type: Progress Notes Filed: 06/16/2017 2:40 PM Note Text: I agree with the advice given; stay same and recheck in 4 weeks Elle Leger MD PROGRESS Observed: 06/16/2017 Status: COMPLETED Source: [place] 10:13 AM [facility] [facility] HNO ID: [id number] Author: Sailaja Razo RN Service: (none) Author Type: (none) Type: Progress Notes Filed: 06/16/2017 10:21 AM Note Text: patient had inr completed at [facility] patients inr is 2.2 (patients inr range is 2.0-3.0) patient is currently taking 6mg Tues,Fri,Sun and 3mg all other days patients last dose change was on 04/30/17 due to a low level of 1.7 (dose at that time was 6mg Tues,Fri and 3mg all other days) patient has had no changes in medication and no missed doses and no change in diet Advised patient to continue on the same dose(s) and that they would only be contacted regarding dosage and follow up instructions after review with provider, if a change is needed. Written instructions given and patient verbalized understanding. Presently scheduled in 4 weeks (07/15/17) for follow up INR. RENATO ABS GR + CBC Collected: 06/16/2017 Status: F Source: [place] 8:34 AM [facility] REPOSITORY TYPE CODE TESTS RESULT OUT OF REFERENCE UNITS RANGE LAB WWBC 3.70-11.00 k/uL [place] WBC 5.17 LAB WRBC 4.20-6.00 m/uL Low [place] RBC 3.52 LAB WHGB 13.0-17.0 g/dL Low [place] Hemoglobin 12.4 LAB WHCT 39.0-51.0 % Low [place] Hematocrit 36.3 LAB WMCV 80.0-100.0 fL [place] High MCV 103.1 LAB WMCH 26.0-34.0 pg [place] High MCH 35.2 LAB WMCHC 30.5-36.0 g/dL [place] MCHC 34.2 LAB WRDW 11.5-15.0 % [place] High RDW 17.8 LAB WPLT 150-400 k/uL Low [place] Platelet Cnt 115 LAB WMPV 9.0-12.7 fL [place] MPV 10.1 Result Comment: Test performed at: [facility] [place], [address] [place] [address]. LAB ABGRAN 1.45-7.50 k/uL Absol Gran 3.52 Count RENATO ISTAT BMP Collected: 06/16/2017 Status: F Source: [place] 8:34 AM [facility] REPOSIT[facility] TYPE CODE TESTS RESULT OUT OF REFERENCE UNITS RANGE LAB NAWB 135-146 mmol/L Sodium, Whole 137 Bld LAB K1WB 3.5-5.0 mmol/L Potassium,Who 4.5 le Bld LAB CLWB 98-110 mmol/L Chloride, 102 Whole Bld LAB ICAWB 1.08-1.30 mmol/L Ionized 1.20 Calcium, WB Result Comment: Please note: This value represents ionized calcium not total calcium. LAB CO2WB 23-32 mmol/L TCO2, Whole 25 Blood LAB GLUWB 65-100 mg/dL High Glucose, 108 Whole Bld LAB BUNWB 10-25 mg/dL High BUN, Whole 26 Blood LAB BCRET 0.70-1.40 mg/dL Creatinine,Wh 1.10 ole Bld LAB AGAPWB 0-15 mmol/L Anion Gap, 10 Whole Bld LAB GFRAA eGFR- >60 Amer. LAB GFRNAA . eGFR-All >60 Other Races Result Comment: eGFR (Estimated GFR) Units of measure: mL/min/1.73 meters squared eGFR is derived from the reexpressed MDRD Study equation using the following parameters: serum creatinine, age, gender and race. The creatinine assay has been calibrated to be traceable to IDMS. An eGFR <60 mL/min/1.73m2 for >3 months is consistent with chronic kidney disease. Refer to KDOQI guidelines for clinical interpretation. In patients with unstable renal function, e.g. those with acute kidney injury, the eGFR may not accurately reflect actual GFR. RENATO ISTAT BMP Collected: 06/09/2017 Status: F Source: [place] 8:15 AM [facility] REPOSITORY TYPE CODE TESTS RESULT OUT OF REFERENCE UNITS RANGE LAB NAWB 135-146 mmol/L Sodium, Whole 138 Bld LAB K1WB 3.5-5.0 mmol/L Potassium,Who 4.2 le Bld LAB CLWB 98-110 mmol/L Chloride, 104 Whole Bld LAB ICAWB 1.08-1.30 mmol/L Ionized 1.16 Calcium, WB Result Comment: Please note: This value represents ionized calcium not total calcium. LAB CO2WB 23-32 mmol/L TCO2, Whole 23 Blood LAB GLUWB 65-100 mg/dL High Glucose, 102 Whole Bld LAB BUNWB 10-25 mg/dL BUN, Whole 25 Blood LAB BCRET 0.70-1.40 mg/dL Creatinine,Wh 1.00 ole Bld LAB AGAPWB 0-15 mmol/L Anion Gap, 11 Whole Bld LAB GFRAA eGFR- >60 Amer. LAB GFRNAA . eGFR-All >60 Other Races Result Comment: eGFR (Estimated GFR) Units of measure: mL/min/1.73 meters squared eGFR is derived from the reexpressed MDRD Study equation using the following parameters: serum creatinine, age, gender and race. The creatinine assay has been calibrated to be traceable to IDMS. An eGFR <60 mL/min/1.73m2 for >3 months is consistent with chronic kidney disease. Refer to KDOQI guidelines for clinical interpretation. In patients with unstable renal function, e.g. those with acute kidney injury, the eGFR may not accurately reflect actual GFR. RENATO ABS GR + CBC Collected: 06/09/2017 Status: F Source: [place] 8:15 AM [facility] REPOSITORY TYPE CODE TESTS RESULT OUT OF REFERENCE UNITS RANGE LAB WWBC 3.70-11.00 k/uL [place] WBC 4.68 LAB WRBC 4.20-6.00 m/uL Low [place] RBC 3.50 LAB WHGB 13.0-17.0 g/dL Low [place] Hemoglobin 12.1 LAB WHCT 39.0-51.0 % Low [place] Hematocrit 36.6 LAB WMCV 80.0-100.0 fL [place] High MCV 104.6 LAB WMCH 26.0-34.0 pg [place] High MCH 34.6 LAB WMCHC 30.5-36.0 g/dL [place] MCHC 33.1 LAB WRDW 11.5-15.0 % [place] High RDW 17.3 LAB WPLT 150-400 k/uL Low [place] Platelet Cnt 110 LAB WMPV 9.0-12.7 fL [place] MPV 10.2 Result Comment: Test performed at: [facility], [address] [place] [address]. LAB ABGRAN 1.45-7.50 k/uL Absol Gran 3.28 Count RENATO ISTAT BMP Collected: 06/02/2017 Status: F Source: [place] 8:29 AM [facility] REPOSITORY TYPE CODE TESTS RESULT OUT OF REFERENCE UNITS RANGE LAB NAWB 135-146 mmol/L Sodium, Whole 139 Bld LAB K1WB 3.5-5.0 mmol/L Potassium,Who 4.6 le Bld LAB CLWB 98-110 mmol/L Chloride, 104 Whole Bld LAB ICAWB 1.08-1.30 mmol/L Ionized 1.19 Calcium, WB Result Comment: Please note: This value represents ionized calcium not total calcium. LAB CO2WB 23-32 mmol/L TCO2, Whole Blood 26 LAB GLUWB 65-100 mg/dL Glucose, Whole Bld 99 LAB BUNWB 10-25 mg/dL BUN, Whole Blood 23 LAB BCRET 0.70-1.40 mg/dL Creatinine,Wh ole Bld 0.90 LAB AGAPWB 0-15 mmol/L Anion Gap, 9 Whole Bld LAB GFRAA eGFR- Amer. >60 LAB GFRNAA . eGFR-All Other Races >60 Result Comment: eGFR (Estimated GFR) Units of measure: mL/min/1.73 meters squared eGFR is derived from the reexpressed MDRD Study equation using the following parameters: serum creatinine, age, gender and race. The creatinine assay has been calibrated to be traceable to IDMS. An eGFR <60 mL/min/1.73m2 for >3 months is consistent with chronic kidney disease. Refer to KDOQI guidelines for clinical interpretation. In patients with unstable renal function, e.g. those with acute kidney injury, the eGFR may not accurately reflect actual GFR. RENATO ABS GR + CBC Collected: 06/02/2017 Status: F Source: [place] 8:29 AM [facility] REPOSITORY TYPE CODE TESTS RESULT OUT OF REFERENCE UNITS RANGE LAB WWBC 3.70-11.00 k/uL [place] WBC 4.81 LAB WRBC 4.20-6.00 m/uL Low [place] RBC 3.44 LAB WHGB 13.0-17.0 g/dL Low [place] Hemoglobin 12.1 LAB WHCT 39.0-51.0 % Low [place] Hematocrit 35.4 LAB WMCV 80.0-100.0 fL [place] High MCV 102.9 LAB WMCH 26.0-34.0 pg [place] High MCH 35.2 LAB WMCHC 30.5-36.0 g/dL [place] MCHC 34.2 LAB WRDW 11.5-15.0 % [place] High RDW 16.8 LAB WPLT 150-400 k/uL Low [place] Platelet Cnt 108 LAB WMPV 9.0-12.7 fL [place] MPV 9.5 Result Comment: Test performed at: [facility], [address] [place] [address]., [place] [address]. LAB ABGRAN 1.45-7.50 k/uL Absol Gran 3.44 Count PROGRESS Observed: 05/31/2017 Status: COMPLETED Source: [place] 9:14 AM [facility] REPOSITORY HNO ID: [id number] Author: Elle Leger Service: (none) Author Type: Physician Type: Progress Notes Filed: 05/31/2017 3:46 PM Note Text: I agree with the advice given; stay on same dose and recheck in 2 weeks Elle Leger MD PROGRESS Observed: 05/31/2017 Status: COMPLETED Source: [place] 8:41 AM [facility] REPOSITORY HNO ID: [id number] Author: Sailaja Razo RN Service: (none) Author Type: (none) Type: Progress Notes Filed: 05/31/2017 8:43 AM Note Text: patient had inr completed at [facility] patients inr is 3.1 (patients inr range is 2.0-3.0) patient is currently taking 6mg Tues,Fri,Sun and 3mg all other days patients last dose change was on 04/30/17 due to a low level of 1.7 (dose at that time was 6mg Tues,Fri and 3mg all other days) patient has had no changes in medication except for the coumadin and no missed doses and no change in diet Advised patient to continue on the same dose(s), increase greens today, and that they would only be contacted regarding dosage and follow up instructions after review with provider, if a change is needed. Written instructions given and patient verbalized understanding. Presently scheduled in 2 weeks (06/18/17) for follow up INR. RENATO ABS GR + CBC Collected: 05/26/2017 Status: F Source: [place] 8:15 AM [facility] REPOSITORY TYPE CODE TESTS RESULT OUT OF REFERENCE UNITS RANGE LAB WWBC 3.70-11.00 k/uL [place] WBC 3.73 LAB WRBC 4.20-6.00 m/uL Low [place] RBC 3.45 LAB WHGB 13.0-17.0 g/dL Low [place] Hemoglobin 11.9 LAB WHCT 39.0-51.0 % Low [place] Hematocrit 36.1 LAB WMCV 80.0-100.0 fL [place] High MCV 104.6 LAB WMCH 26.0-34.0 pg [place] High MCH 34.5 LAB WMCHC 30.5-36.0 g/dL [place] MCHC 33.0 LAB WRDW 11.5-15.0 % [place] High RDW 16.1 LAB WPLT 150-400 k/uL Low [place] Platelet Cnt 132 LAB WMPV 9.0-12.7 fL [place] MPV 10.1 Result Comment: Test performed at: [facility] [place], [address] [place] [address]. LAB ABGRAN 1.45-7.50 k/uL Absol Gran 2.23 Count RENATO ISTAT BMP Collected: 05/26/2017 Status: F Source: [place] 8:15 AM [facility] REPOSITORY TYPE CODE TESTS RESULT OUT OF REFERENCE UNITS RANGE LAB NAWB 135-146 mmol/L Sodium, Whole 139 Bld LAB K1WB 3.5-5.0 mmol/L Potassium,Who 4.2 le Bld LAB CLWB 98-110 mmol/L Chloride, 102 Whole Bld LAB ICAWB 1.08-1.30 mmol/L Ionized 1.17 Calcium, WB Result Comment: Please note: This value represents ionized calcium not total calcium. LAB CO2WB 23-32 mmol/L TCO2, Whole Blood 26 LAB GLUWB 65-100 mg/dL Glucose, Whole Bld 97 LAB BUNWB 10-25 mg/dL BUN, Whole Blood 24 LAB BCRET 0.70-1.40 mg/dL Creatinine,Wh ole Bld 1.00 LAB AGAPWB 0-15 mmol/L Anion Gap, Whole Bld 11 LAB GFRAA eGFR- Amer. >60 LAB GFRNAA . eGFR-All Other Races >60 Result Comment: eGFR (Estimated GFR) Units of measure: mL/min/1.73 meters squared eGFR is derived from the reexpressed MDRD Study equation using the following parameters: serum creatinine, age, gender and race. The creatinine assay has been calibrated to be traceable to IDMS. An eGFR <60 mL/min/1.73m2 for >3 months is consistent with chronic kidney disease. Refer to KDOQI guidelines for clinical interpretation. In patients with unstable renal function, e.g. those with acute kidney injury, the eGFR may not accurately reflect actual GFR. CNOVSP Observed: 05/19/2017 Status: COMPLETED Source: [place] 8:50 AM [facility] REPOSITORY Visit (SP) Office ([place]) GALE VALDEZ ([id number]) [address] [facility] Date Time Provider Department 05/19/17 8:50 AM HARSH TERRY During your visit today, we recorded the following information about you: Temperature Pulse Blood pressure Weight 97.7 degrees 101/minute 125/70 100 kg Harsh Terry DO 05/19/2017 9:19 AM Signed Diagnosis: 1) [place] light chain only multiple myeloma. HPI: The patient is a 77 yo male who was evaluated for pain in the right shoulder in April of 2011. Initially he had pain across the top of the shoulder. The onset was following lifting some luggage when [place] was on a cruise. He underwent an injection which didn't help the pain. He also had plain films which didn't show any significant bony pathology. He was referred to an orthopedic surgeon who ordered an MRI of the shoulder on 06/29/11. The study revealed ANDquot;multiple metastatic deposits throughout the shoulder girdle, involving the visualized humerus, scapula and clavicle. There was a large expansile lesion within the scapula extending into the periscapular soft tissues along the deep and superficial surface there was also a large expansile lesion of the distal clavicle.ANDquot; Work up has revealed kappa light chain multiple myeloma. Previous therapy: 1) VMP x3 cycles. Therapy was held due to worsening fatigue and neuropathy. He also had significant difficulty with constipation throughout his treatment course. Laboratory analysis revealed marked reduction in serum kappa light chain. 2) Velcade/dex (day 1, 8 and 15 every 28 days). Began 11/06/2014. Revlimid 15 mg days 1-21 added 06/2015. PD 04/2017. Current therapy: 1) Daratumumab with dex. Plan to add Pomalyst pending tolerance. Presents for ongoing oncologic management. Interim history: Tolerating daratumumab without any symptomatic side effects. However day 15 of his initial dosing had be delayed a week secondary to thrombocytopenia. Stable symptoms of neuropathy. He said they did flare a little bit last week but have subsided. He is back to baseline symptoms in the feet and lower legs only. No interference with ambulation. Chronic low back pain stable to improved. PMH, medications and allergies as below personally reviewed by me today. Any changes documented in appropriate section. ROS: Constitutional: Denies episodes of fever and night sweats. Not significantly fatigued. Normal appetite. Neuro: Denies METZGER, vertigo, dizziness and imbalance. HEENT: No recent change in voice, vision or hearing. Resp: Denies cough, wheeze and hemoptysis. Denies shortness of breath at rest. CVS: Denies exertional chest pain, PND, orthopnea and LE edema. GI: Denies dysgeusia. Denies symptoms of stomatitis. Denies dysphagia and odynophagia. Denies reflux, n/v, change in bowel habits and abdominal pain. : Denies dysuria or gross hematuria. No symptoms of bladder outlet obstruction. Endo: Denies hot flashes. Denies polyuria and polydipsia. Denies heat and cold intolerance. Musculoskeletal: See above. Derm: Denies rash. Denies jaundice and diffuse pruritis. Heme: Denies unusual bleeding and unexplained bruising. Psych: Normal mood. PHYSICAL EXAM: Vitals: Blood pressure 125/70, pulse 101, temperature 36.5 ?C (97.7 ?F), temperature source Temporal Artery, weight 100 kg (220 lb 8 oz). Well-appearing and in no acute distress. EYES: Sclerae are anicteric bilaterally. NECK: Supple. LYMPHATIC: There is no palpable cervical, supraclavicular adenopathy. RESPIRATORY: Normal air entry. CVS: Regular rhythm. ABDOMEN: The abdomen is nondistended. There is no organomegaly. No tenderness. Extremities: Trace edema both ankles/distal LEs-stable. SKIN: No rash. 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 No focal motor weakness. ASSESSMENT/PLAN: 1) Multiple myeloma. Light chain only disease. Relapsed with increase in serum kappa light chain and very small amount kappa in 24 hour urine. - Now tolerating daratumumab without symptomatic side effect. Moderate hematologic toxicity. -Discussed plan to continue treatment for now and add Pomalyst after several more doses and we have a better idea of how her counts are doing and responses. Plan: -Continue daratumumab. -Continue Zometa every 3 months. Harsh Terry DO Will need week dex 40 mg. Currently splitting this into 20 mg on day 1 and day 2 of the weekly infusions of daratumumab. He will need a new prescription for dexamethasone when he goes to biweekly and every month infusions. Also will need Pomalyst. Harsh Terry DO Referring Provider: HARSH TERRY [[id number]] Allergies As of Date: 05/19/2017 Noted Allergy Reaction NEOSPORIN ([id number]*11/20/2004 bandaid [Other] 11/20/2004 Date Reviewed: 05/19/2017 Reviewed by: Delmis Cassidy - Fully Assessed Reason for Visit: Established Patient [[id number]] Primary Visit Diagnosis:Multiple myeloma in relapse (HCC) [C90.02] Prescriptions as of 05/19/2017 Sig: DEXAMETHASONE 4 MG TABLET Take 5 tablets once the day a* ATORVASTATIN 10 MG TABLET TAKE 1 TABLET EVERY DAY WARFARIN 3 MG TABLET TAKE 2 TABLETS (6MG) WEDNESDAY A* AMIODARONE 200 MG TABLET Take 0.5 tablets by mouth onc* LEVOTHYROXINE 25 MCG TABLET TAKE 1 TABLET ONCE DAILY POLYETHYLENE GLYCOL 3350 17 G* Take 17 g by mouth once daily* MUPIROCIN 2 % TOPICAL OINTMENT Apply 1 application to affect* ACETAMINOPHEN 500 MG TABLET Take 1,000 mg by mouth as nee* STOOL SOFTENER ORAL Take 1 tablet by mouth once d* SODIUM CHLORIDE 0.9% FLUSH Start IV as needed for labs o* * TRAMADOL 50 MG TABLET Take 1-2 tablets every 6 hour* DEXAMETHASONE 4 MG TABLET TAKE 2 TABLETS ONE TIME WEEKL* Problem List As Of Date 05/19/2017 Noted Resolved Atrial Fibrillation [I48.91] INVALID FOR* Priority: Moderate More... Encounter for Long-Term (Current) Use of Antico*INVALID FOR* Priority: A Pure Hypercholesterolemia [E78.00] INVALID FOR* Priority: A KNEE PAIN - RIGHT [M25.569] INVALID FOR*08/18/2016 Priority: B GENERAL OSTEOARTHROSIS [M15.9] INVALID FOR* BENIGN NEOPLASM LG BOWEL [D12.6] DIVERTICULOSIS OF COLON W/O BLEED [K57.30] Internal hemorrhoids without mention of complic* 12/16/2011 KNEE JOINT REPLACEMENT STATUS [Z96.659] INVALID FOR* Sleep Apnea [G47.30] INVALID FOR* Priority: A More... Fracture of lateral malleolus [S82.63XA] INVALID FOR*08/18/2016 Priority: B More... 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 Vitamin D deficiency [E55.9] INVALID FOR* Esophagitis, unspecified [K20.9] INVALID FOR* Irritated//Inflamed Seborrheic Keratosis [L82.0]INVALID FOR*08/18/2016 Viral wart, unspecified [B07.9] INVALID FOR*08/18/2016 Neoplasm of Uncertain Behavior of skin: R/O Dys*INVALID FOR*08/18/2016 Atypical nevus of face [D22.30] INVALID FOR*08/18/2016 Sebaceous hyperplasia [L73.8] INVALID FOR*08/18/2016 Actinic skin damage [L57.8] INVALID FOR*08/18/2016 Solar lentigo [L81.4] INVALID FOR*08/18/2016 Other seborrheic keratosis [L82.1] INVALID FOR*08/18/2016 Multiple myeloma in relapse (HCC) [C90.02] INVALID FOR* Chronic low back pain [M54.5, G89.29] INVALID FOR* Hypothyroidism, acquired [E03.9] INVALID FOR* Encounter Status:Closed by HARSH TERRY DO on 05/19/17 RENATO FAY BMP Collected: 05/19/2017 Status: F Source: [place] 8:42 AM [facility] REPOSITORY TYPE CODE TESTS RESULT OUT OF REFERENCE UNITS RANGE LAB NAWB 135-146 mmol/L Sodium, Whole 142 Bld LAB K1WB 3.5-5.0 mmol/L Potassium,Who 3.9 le Bld LAB CLWB 98-110 mmol/L Chloride, 108 Whole Bld LAB ICAWB 1.08-1.30 mmol/L Ionized 1.23 Calcium, WB Result Comment: Please note: This value represents ionized calcium not total calcium. LAB CO2WB 23-32 mmol/L Low TCO2, Whole 22 Blood LAB GLUWB 65-100 mg/dL High Glucose, 151 Whole Bld LAB BUNWB 10-25 mg/dL BUN, Whole 22 Blood LAB BCRET 0.70-1.40 mg/dL Creatinine,Wh 0.80 ole Bld LAB AGAPWB 0-15 mmol/L Anion Gap, 12 Whole Bld LAB GFRAA eGFR- >60 Amer. LAB GFRNAA . eGFR-All >60 Other Races Result Comment: eGFR (Estimated GFR) Units of measure: mL/min/1.73 meters squared eGFR is derived from the reexpressed MDRD Study equation using the following parameters: serum creatinine, age, gender and race. The creatinine assay has been calibrated to be traceable to IDMS. An eGFR <60 mL/min/1.73m2 for >3 months is consistent with chronic kidney disease. Refer to KDOQI guidelines for clinical interpretation. In patients with unstable renal function, e.g. those with acute kidney injury, the eGFR may not accurately reflect actual GFR. RENATO ABS GR + CBC Collected: 05/19/2017 Status: F Source: [place] 8:42 AM [facility] REPOSITORY TYPE CODE TESTS RESULT OUT OF REFERENCE UNITS RANGE LAB WWBC 3.70-11.00 k/uL [place] WBC 3.87 LAB WRBC 4.20-6.00 m/uL Low [place] RBC 3.52 LAB WHGB 13.0-17.0 g/dL Low [place] Hemoglobin 12.1 LAB WHCT 39.0-51.0 % Low [place] Hematocrit 36.3 LAB WMCV 80.0-100.0 fL [place] High MCV 103.1 LAB WMCH 26.0-34.0 pg [place] High MCH 34.4 LAB WMCHC 30.5-36.0 g/dL [place] MCHC 33.3 LAB WRDW 11.5-15.0 % [place] RDW 14.5 LAB WPLT 150-400 k/uL Low [place] Platelet Cnt 99 LAB WMPV 9.0-12.7 fL [place] MPV 11.2 Result Comment: Test performed by: [facility], [address] [place] [address]. LAB ABGRAN 1.45-7.50 k/uL Absol Gran 2.89 Count B2 MICROGLOBULIN Collected: 05/19/2017 Status: F Source: [place] 8:42 AM [facility] REPOSITORY TYPE CODE TESTS RESULT OUT OF REFERENCE UNITS RANGE LAB B2M 0.8-2.2 mg/L B2 Microglobulin High 2.7 Performed By: #### B2M, KLFRS, MPASRM, SEPG #### [facility] [employer] [address], [place] [address] KAPPA/ALVARADO,FREE,SER Collected: Status: F Source: [place] 05/19/2017 8:42 AM [facility] REPOSITORY TYPE CODE TESTS RESULT OUT OF REFERENCE UNITS RANGE LAB FKAPS 3.30-19.40 mg/L High [place], 73.2 Free, Serum Result Comment: Rarely, increased serum free light chains values may not be detected due to antigen excess phenomenon. Results should always be correlated with other laboratory results and clinical findings. LAB FLAMS 5.7-26.3 mg/L Lambda, Free, 7.0 Serum Result Comment: Rarely, increased serum free light chains values may not be detected due to antigen excess phenomenon. Results should always be correlated with other laboratory results and clinical findings. LAB KLRAT 0.26-1.65 High K/L Ratio, 10.46 Serum Performed By: #### B2M, KLFRS, MPASRM, SEPG #### [facility] [employer] [address], [place] [address] MONOCLONL PROTEIN,BL Collected: 05/19/2017 Status: F Source: [place] 8:42 AM [facility] REPOSITORY TYPE CODE TESTS RESULT OUT OF RANGE REFERENCE UNITS LAB MPAIGG 717-1411 mg/dL Low MPA Serum IgG 543 LAB MPAIGA 78-391 mg/dL Low MPA Serum IgA 8 LAB MPAIGM 53-334 mg/dL Low MPA Serum IgM 16 LAB MPAK 534-1267 mg/dL Serum [place] 536 LAB MPAL 253-653 mg/dL Low Serum Lambda 151 LAB MPAKL 1-3 High MPA Klaudia/Louis Ratio 3.55 LAB MPAR No M protein is MPA Result A Abnormal identified. poorly defined Alert region of restricted mobility is present that may represent an M protein. LAB INTP MPA Interpretation SEE COMMENT Result Comment: Poorly defined region of restricted mobility in IgG and kappa lanes. Pattern is less well defined or fainter than typically seen in monoclonal gammopathy. This could represent either an atypical presentation of polyclonal immunoglobulins or the presence of a low level IgG kappa monoclonal gammopathy. If clinically indicated, urine monoclonal protein analysis and serum free light chain measurements are recommended to evaluate further for monoclonal gammopathy. Clinical correlation is necessary. LAB MPASTF Staff Reviewed by Review Patricio Zaragoza M.D., PhD ([id number]) Performed By: #### JUSTIN Bhakta MPASRM, IMANI #### [facility] [employer] [address] [place], [place] [address] PROTEIN ELECTROPHOR. Collected: 05/19/2017 Status: F Source: [place] 8:42 AM [facility] REPOSITORY TYPE CODE TESTS RESULT OUT OF REFERENCE UNITS RANGE LAB TPSPE 6.0-8.4 g/dL Total Protein, SPE 6.0 LAB ALBE 3.37-4.23 gm/dL Albumin 3.77 LAB A1GL 0.18-0.31 gm/dL Alpha 1 Globulin 0.23 LAB A2GL 0.52-0.97 gm/dL Alpha 2 Globulin 0.76 LAB BEGL 0.84-1.36 gm/dL Beta Globulin Low 0.72 LAB GAGL 0.70-1.44 gm/dL Gamma Globulin Low 0.52 LAB SPEINT Interpretation SEE COMMENT Result Comment: An atypical region of restricted mobility is identified on protein electrophoresis. The atypical region is relatively poorly defined and may represent an unusual presentation of polyclonal immunoglobulins, but cannot rule out the presence of a low level M protein. If clinically indicat ed, monoclonal protein analysis and serum free light chain analysis are suggested to evaluate further for monoclonal gammopathy. LAB LOC M Protein N/A Location LAB GPERDL 0.00 gm/dL M Rich 0.00 Concentratn LAB SPESTF SPE Staff Review Reviewed by Patricio Zaragoza M.D., PhD ([id number]) Performed By: #### JUSTNI Bhakta, EDISON, IMANI #### [facility] [address] [place], [place] [address] PROTEIN ELEC,UR RAND Collected: 05/19/2017 Status: F Source: [place] 8:42 AM [facility] REPOSITORY TYPE CODE TESTS RESULT OUT OF REFERENCE UNITS RANGE LAB UTPR 0-20 mg/dL Protein Urine Random 10 LAB UALB % Albumin 19.9 LAB UA1G >0 % Alpha 1 Globulin 8.7 LAB UA2G % Alpha 2 Globulin 21.8 LAB UBEG % Beta Globulin 27.0 LAB UGAG % Gamma Globulin 22.7 LAB UPEINT Interpretation SEE COMMENT Result Comment: An M protein is identified on protein electrophoresis. See separate immunofixation report for characterization of the M protein. LAB UPESTF Staff Reviewed by Review Patricio Zaragoza M.D., PhD ([id number]) Performed By: #### UEPG, JACEYA #### [facility] [employer] [address], [place] [address] MONOCLONAL PROT UR Collected: 05/19/2017 Status: F Source: [place] 8:42 AM [facility] REPOSITORY TYPE CODE TESTS RESULT OUT OF RANGE REFERENCE UNITS LAB UMPA No M protein is UMPA Result Abnormal identified. M protein Alert is present. LAB UINTP UMPA Interpretation SEE COMMENT Result Comment: An atypical restricted band is present in the kappa region. The presence of free kappa light chains in the urine is consistent with a kappa-containing monoclonal gammopathy. LAB UMPSTF UMPA Reviewed by Staff Review Patricio Zaragoza M.D., PhD ([id number]) Performed By: #### CITLALLI, JACEYA #### [facility] [employer] [address], [place] [address] PROGRESS Observed: 05/14/2017 Status: COMPLETED Source: [place] 12:56 PM [facility] REPOSITORY HNO ID: [id number] Author: Tanesha Krishnamurthy MA Service: (none) Author Type: Burner Tender Type: Progress Notes Filed: 05/14/2017 12:57 PM Note Text: In absence of PCP, per Dr. Orourke's written response: Agrees with the instructions below. Tanesha Krishnamurthy CMA PROGRESS Observed: 05/14/2017 Status: COMPLETED Source: [place] 8:30 AM [facility] REPOSITORY HNO ID: [id number] Author: Demi Brizuela RN Service: (none) Author Type: (none) Type: Progress Notes Filed: 05/14/2017 8:31 AM Note Text: Patient had INR completed at [facility] Patient's INR is 2.0 Patient is currently taking 6 mg Tu/Wed/Sun and 3 mg all other days Patient's last dose change was 11/20/16 due to low INR at 1.8 Patient has had no medication and no change in diet. Advised patient to continue on same dose and they would only be contacted with different instructions after provider review. Written instructions were given to patient and patient verbalized understanding. Presently, patient has been scheduled for 06/01/17 for INR follow up. RENATO ISTAT BMP Collected: 05/13/2017 Status: F Source: [place] 7:40 AM [facility] REPOSITORY TYPE CODE TESTS RESULT OUT OF REFERENCE UNITS RANGE LAB NAWB 135-146 mmol/L Sodium, Whole 141 Bld LAB K1WB 3.5-5.0 mmol/L Potassium,Who 3.9 le Bld LAB CLWB 98-110 mmol/L Chloride, 101 Whole Bld LAB ICAWB 1.08-1.30 mmol/L Ionized 1.26 Calcium, WB Result Comment: Please note: This value represents ionized calcium not total calcium. LAB CO2WB 23-32 mmol/L TCO2, Whole 25 Blood LAB GLUWB 65-100 mg/dL High Glucose, 117 Whole Bld LAB BUNWB 10-25 mg/dL BUN, Whole 20 Blood LAB BCRET 0.70-1.40 mg/dL Creatinine,Wh 0.90 ole Bld LAB AGAPWB 0-15 mmol/L Anion Gap, 15 Whole Bld LAB GFRAA eGFR- >60 Amer. LAB GFRNAA . eGFR-All >60 Other Races Result Comment: eGFR (Estimated GFR) Units of measure: mL/min/1.73 meters squared eGFR is derived from the reexpressed MDRD Study equation using the following parameters: serum creatinine, age, gender and race. The creatinine assay has been calibrated to be traceable to IDMS. An eGFR <60 mL/min/1.73m2 for >3 months is consistent with chronic kidney disease. Refer to KDOQI guidelines for clinical interpretation. In patients with unstable renal function, e.g. those with acute kidney injury, the eGFR may not accurately reflect actual GFR. RENATO ABS GR + CBC Collected: 05/13/2017 Status: F Source: [place] 7:40 AM [facility] REPOSITORY TYPE CODE TESTS RESULT OUT OF REFERENCE UNITS RANGE LAB WWBC 3.70-11.00 k/uL Low Renato WBC 2.62 LAB WRBC 4.20-6.00 m/uL Low Renato RBC 3.61 LAB WHGB 13.0-17.0 g/dL Low [place] Hemoglobin 12.5 LAB WHCT 39.0-51.0 % Low Renato Hematocrit 36.6 LAB WMCV 80.0-100.0 fL Renato High MCV 101.4 LAB WMCH 26.0-34.0 pg Renato High MCH 34.6 LAB WMCHC 30.5-36.0 g/dL Renato MCHC 34.2 LAB WRDW 11.5-15.0 % Renato RDW 14.6 LAB WPLT 150-400 k/uL Low [place] Platelet Cnt 67 Result Comment: NO CLOT DETECTED LAB WMPV 9.0-12.7 fL [place] MPV 11.5 Result Comment: Test performed at: [address] [place] [address]. LAB ABGRAN 1.45-7.50 k/uL Absol Gran 1.56 Count B2 MICROGLOBULIN Collected: 05/13/2017 Status: F Source: [place] 7:40 AM [facility] REPOSITORY TYPE CODE TESTS RESULT OUT OF REFERENCE UNITS RANGE LAB B2M 0.8-2.2 mg/L B2 Microglobulin High 2.9 Performed By: #### B2M, CMP, KLFRS, SEPG, MPASRM #### [facility] [address] [place] [address] COMP METABOLIC PANEL Collected: 05/13/2017 Status: F Source: [place] 7:40 AM [facility] REPOSITORY TYPE CODE TESTS RESULT OUT OF REFERENCE UNITS RANGE LAB TP 6.3-8.0 g/dL Low Protein, Total 5.7 LAB ALB 3.9-4.9 g/dL Low Albumin 3.6 LAB CA 8.5-10.2 mg/dL Calcium, Total 9.3 LAB TBIL 0.2-1.3 mg/dL Bilirubin, Total 0.4 LAB ALKP 36-108 U/L Alkaline Phosphatase 53 LAB AST 14-40 U/L AST 19 LAB GLU 74-99 mg/dL Glucose High 114 Result Comment: The [place] [employer] (ADA) provides guidance for cutoff values for fasting glucose and random glucose. The ADA defines fasting as no caloric intake for at least 8 hours. Fas ting plasma glucose results between 100 to 125 mg/dL indicate increased risk for diabetes (prediabetes). Fasting plasma glucose results greater than or equal to 126 mg/dL meet the criteria for diagnosis of diabetes. In the absence of unequivocal hyperglycemia, results should be confirmed by repeat testing. In a patient with classic symptoms of hyperglycemia or hyperglycemic crisis, random plasma glucose results greater than or equal to 200 mg/dL meet the criteria for diagnosis of diabetes. Reference: Standards of Medical Care in Diabetes 2016, [place] [employer]. Diabetes Care. 2016.39(Suppl 1). LAB BUN 9-24 mg/dL BUN 18 LAB CRET 0.73-1.22 mg/dL Creatinine 0.93 LAB NA 136-144 mmol/L Sodium 142 LAB K 3.7-5.1 mmol/L Potassium 4.2 LAB CL 97-105 mmol/L Chloride 104 LAB CO2 22-30 mmol/L CO2 24 LAB AGAP 9-18 mmol/L Anion Gap 14 LAB ALT 10-54 U/L ALT 29 LAB GFRAA eGFR- Amer. >60 LAB GFRNAA . eGFR-All Other Races >60 Result Comment: eGFR (Estimated GFR) Units of measure: mL/min/1.73 meters squared eGFR is derived from the reexpressed MDRD Study equation using the following parameters: serum creatinine, age, gender and race. The creatinine assay has been calibrated to be traceable to IDMS. An eGFR <60 mL/min/1.73m2 for >3 months is consistent with chronic kidney disease. Refer to KDOQI guidelines for clinical interpretation. In patients with unstable renal function, e.g. those with acute kidney injury, the eGFR may not accurately reflect actual GFR. Performed By: #### B2M, CMP, KLFRS, SEPG, MPASRM #### [facility] [address] [place], [place] [address] KAPPA/ALVARADO,FREE,SER Collected: Status: F Source: [place] 05/13/2017 7:40 AM [facility] REPOSITORY TYPE CODE TESTS RESULT OUT OF REFERENCE UNITS RANGE LAB FKAPS 3.30-19.40 mg/L High [place], 68.3 Free, Serum Result Comment: Rarely, increased serum free light chains values may not be detected due to antigen excess phenomenon. Results should always be correlated with other laboratory results and clinical findings. LAB FLAMS 5.7-26.3 mg/L Lambda, Free, 6.7 Serum Result Comment: Rarely, increased serum free light chains values may not be detected due to antigen excess phenomenon. Results should always be correlated with other laboratory results and clinical findings. LAB KLRAT 0.26-1.65 High K/L Ratio, 10.19 Serum Performed By: #### B2M, CMP, KLFRS, SEPG, MPASRM #### [facility] [employer] [address], [place] [address] PROTEIN ELECTROPHOR. Collected: 05/13/2017 Status: F Source: [place] 7:40 AM [facility] REPOSITORY TYPE CODE TESTS RESULT OUT OF REFERENCE UNITS RANGE LAB TPSPE 6.0-8.4 g/dL Total Protein, Low SPE 5.6 LAB ALBE 3.37-4.23 gm/dL Albumin Low 3.34 LAB A1GL 0.18-0.31 gm/dL Alpha 1 Globulin 0.23 LAB A2GL 0.52-0.97 gm/dL Alpha 2 Globulin 0.70 LAB BEGL 0.84-1.36 gm/dL Beta Globulin Low 0.73 LAB GAGL 0.70-1.44 gm/dL Gamma Globulin Low 0.61 LAB SPEINT Interpretation SEE COMMENT Result Comment: No definitive M protein is identified on protein electrophoresis. Hypogammaglobulinemia is present, which can be seen in the setting of monoclonal gammopathy. If clinically indicated, monoclonal protein analysis and serum free light chain analysis are suggested to ev aluate further for monoclonal gammopathy. LAB LOC M Protein N/A Location LAB GPERDL 0.00 gm/dL M Rich 0.00 Concentratn LAB SPESTF SPE Staff Review Reviewed by Zheng Uerna MD.([id number]) Performed By: #### B2M, CMP, KLFRS, SEPG, MPASRM #### [facility] [employer] [address], [place] [address] MONOCLONL PROTEIN,BL Collected: 05/13/2017 Status: F Source: [place] 7:[address] [facility] REPOSITORY TYPE CODE TESTS RESULT OUT OF RANGE REFERENCE UNITS LAB MPAIGG 717-1411 mg/dL Low MPA Serum IgG 640 LAB MPAIGA 78-391 mg/dL Low MPA Serum IgA 10 LAB MPAIGM 53-334 mg/dL Low MPA Serum IgM 19 LAB MPAK 534-1267 mg/dL Serum [place] 550 LAB MPAL 253-653 mg/dL Low Serum Lambda 171 LAB MPAKL 1-3 High MPA Klaudia/Louis Ratio 3.22 LAB MPAR No M protein is MPA Result Abnormal identified. M protein Alert is present. LAB INTP MPA Interpretation SEE COMMENT Result Comment: Atypical restricted bands are present in the IgG and kappa regions. Consistent with IgG kappa monoclonal gammopathy. LAB MPASTF Staff Reviewed by Review Zheng Urena MD.([id number]) Performed By: #### B2M, CMP, KLFRS, SEPG, MPASRM #### [facility] [employer] [address] [place], [place] [id number] MONOCLONAL PROT UR Collected: 05/13/2017 Status: F Source: [place] 7:40 AM [facility] REPOSITORY TYPE CODE TESTS RESULT OUT OF RANGE REFERENCE UNITS LAB UMPA No M protein is UMPA Result Abnormal identified. M protein Alert is present. LAB UINTP UMPA Interpretation SEE COMMENT Result Comment: An atypical restricted band is present in the kappa region. The presence of free kappa light chains in the urine is consistent with a kappa-containing monoclonal gammopathy. LAB UMPSTF UMPA Reviewed by Staff Review Zheng Urena MD.([id number]) Performed By: #### ROB UEPG #### [facility] [employer] [address], [place] [id number] PROTEIN ELEC,UR RAND Collected: 05/13/2017 Status: F Source: [place] 7:40 AM [facility] REPOSITORY TYPE CODE TESTS RESULT OUT OF REFERENCE UNITS RANGE LAB UTPR 0-20 mg/dL Protein Urine Random 5 LAB UALB % Albumin 25.4 LAB UA1G >0 % Alpha 1 Globulin 5.5 LAB UA2G % Alpha 2 Globulin 22.0 LAB UBEG % Beta Globulin 27.5 LAB UGAG % Gamma Globulin 19.6 LAB UPEINT Interpretation SEE COMMENT Result Comment: No definitive M protein is identified on protein electrophoresis. LAB UPESTF Staff Reviewed by Review Zheng Urena MD.([id number]) Performed By: #### URMPA, UEPG #### [facility] [employer] [address] [place], [place] [address] PROGRESS Observed: 05/07/2017 Status: COMPLETED Source: [place] 8:33 AM [facility] REPOSITORY HNO ID: [id number] Author: Harsh Terry Service: (none) Author Type: Physician Type: Progress Notes Filed: 05/19/2017 9:19 AM Note Text: Diagnosis: 1) [place] light chain only multiple myeloma. HPI: The patient is a 77 yo male who was evaluated for pain in the right shoulder in April of 2011. Initially he had pain across the top of the shoulder. The onset was following lifting some luggage when he was on a cruise. He underwent an injection which didn't help the pain. He also had plain films which didn't show any significant bony pathology. He was referred to an orthopedic surgeon who ordered an MRI of the shoulder on 06/29/11. The study revealed multiple metastatic deposits throughout the shoulder girdle, involving the visualized humerus, scapula and clavicle. There was a large expansile lesion within the scapula extending into the periscapular soft tissues along the deep and superficial surface there was also a large expansile lesion of the distal clavicle. Work up has revealed kappa light chain multiple myeloma. Previous therapy: 1) VMP x3 cycles. Therapy was held due to worsening fatigue and neuropathy. He also had significant difficulty with constipation throughout his treatment course. Laboratory analysis revealed marked reduction in serum kappa light chain. 2) Velcade/dex (day 1, 8 and 15 every 28 days). Began 11/06/2014. Revlimid 15 mg days 1-21 added 06/2015. PD 04/2017. Current therapy: 1) Daratumumab with dex. Plan to add Pomalyst pending tolerance. Presents for ongoing oncologic management. Interim history: Tolerating daratumumab without any symptomatic side effects. However day 15 of his initial dosing had be delayed a week secondary to thrombocytopenia. Stable symptoms of neuropathy. He said they did flare a little bit last week but have subsided. He is back to baseline symptoms in the feet and lower legs only. No interference with ambulation. Chronic low back pain stable to improved. PMH, medications and allergies as below personally reviewed by me today. Any changes documented in appropriate section. ROS: Constitutional: Denies episodes of fever and night sweats. Not significantly fatigued. Normal appetite. Neuro: Denies METZGER, vertigo, dizziness and imbalance. HEENT: No recent change in voice, vision or hearing. Resp: Denies cough, wheeze and hemoptysis. Denies shortness of breath at rest. CVS: Denies exertional chest pain, PND, orthopnea and LE edema. GI: Denies dysgeusia. Denies symptoms of stomatitis. Denies dysphagia and odynophagia. Denies reflux, n/v, change in bowel habits and abdominal pain. : Denies dysuria or gross hematuria. No symptoms of bladder outlet obstruction. Endo: Denies hot flashes. Denies polyuria and polydipsia. Denies heat and cold intolerance. Musculoskeletal: See above. Derm: Denies rash. Denies jaundice and diffuse pruritis. Heme: Denies unusual bleeding and unexplained bruising. Psych: Normal mood. PHYSICAL EXAM: Vitals: Blood pressure 125/70, pulse 101, temperature 36.5 ?C (97.7 ?F), temperature source Temporal Artery, weight 100 kg (220 lb 8 oz). Well-appearing and in no acute distress. EYES: Sclerae are anicteric bilaterally. NECK: Supple. LYMPHATIC: There is no palpable cervical, supraclavicular adenopathy. RESPIRATORY: Normal air entry. CVS: Regular rhythm. ABDOMEN: The abdomen is nondistended. There is no organomegaly. No tenderness. Extremities: Trace edema both ankles/distal LEs-stable. SKIN: No rash. 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 No focal motor weakness. ASSESSMENT/PLAN: 1) Multiple myeloma. Light chain only disease. Relapsed with increase in serum kappa light chain and very small amount kappa in 24 hour urine. - Now tolerating daratumumab without symptomatic side effect. Moderate hematologic toxicity. -Discussed plan to continue treatment for now and add Pomalyst after several more doses and we have a better idea of how her counts are doing and responses. Plan: -Continue daratumumab. -Continue Zometa every 3 months. Harsh Terry DO Will need week dex 40 mg. Currently splitting this into 20 mg on day 1 and day 2 of the weekly infusions of daratumumab. He will need a new prescription for dexamethasone when he goes to biweekly and every month infusions. Also will need Pomalyst. Harsh Terry DO RENATO ABS GR + CBC Collected: 05/06/2017 Status: F Source: [place] 7:40 AM [facility] REPOSITORY TYPE CODE TESTS RESULT OUT OF REFERENCE UNITS RANGE LAB WWBC 3.70-11.00 k/uL Low Renato WBC 3.12 LAB WRBC 4.20-6.00 m/uL Low Renato RBC 3.61 LAB WHGB 13.0-17.0 g/dL Low [place] Hemoglobin 12.8 LAB WHCT 39.0-51.0 % Low Renato Hematocrit 37.2 LAB WMCV 80.0-100.0 fL Renato High MCV 103.0 LAB WMCH 26.0-34.0 pg [place] High MCH 35.5 LAB WMCHC 30.5-36.0 g/dL [place] MCHC 34.4 LAB WRDW 11.5-15.0 % [place] RDW 14.7 LAB WPLT 150-400 k/uL Low [place] Platelet Cnt 111 LAB WMPV 9.0-12.7 fL Renato MPV 11.1 Result Comment: Test performed at: [facility], [address] [place] [address] Rd[address] [place] [address]. LAB ABGRAN 1.45-7.50 k/uL Absol Gran 1.85 Count BMP PLUS [facility]HC Collected: 05/06/2017 Status: F Source: [place] 7:40 AM [facility] REPOSITORY TYPE CODE TESTS RESULT OUT OF REFERENCE UNITS RANGE LAB NA 128-145 mmol/L Sodium 141 LAB K 3.6-5.1 mmol/L Potassium 4.4 LAB CL 98-108 mmol/L Chloride 105 LAB CO2 18-33 mmol/L CO2 27 LAB CRET 0.6-1.2 mg/dL Creatinine 0.80 LAB BUN 7-22 mg/dL BUN 22 LAB GLU 73-118 mg/dL Glucose High 121 LAB CA 8.0-10.3 mg/dL Calcium, Total 9.5 LAB MG 1.6-2.3 mg/dL Magnesium 2.1 LAB AGAP 9-18 mmol/L Anion Gap 9 LAB GFRAA eGFR- >60 Amer. LAB GFRNAA . eGFR-All Other Races >60 Result Comment: eGFR (Estimated GFR) Units of measure: mL/min/1.73 meters squared eGFR is derived from the reexpressed MDRD Study equation using the following parameters: serum creatinine, age, gender and race. The creatinine assay has been calibrated to be traceable to IDIL. An eGFR <60 mL/min/1.73m2 for >3 months is consistent with chronic kidney disease. Refer to KDOQI guidelines for clinical interpretation. In patients with unstable renal function, e.g. those with acute kidney injury, the eGFR may not accurately reflect actual GFR. OBSOLETE Observed: 05/02/2017 Status: COMPLETED Source: [place] 12:00 AM [facility] REPOSITORY Refill (AGCARDWST) JASENGALE Aranda ([id number]) [address] [facility] Date Time Provider Department 05/02/17 THIEN PATTERSONWST During your visit today, we recorded the following information about you: Thien Patterson MD 05/03/2017 11:17 AM Signed The following approved medication requests have been transmitted electronically. Signed Prescriptions Disp Refills atorvastatin (LIPITOR) 10 mg tablet 90 tablet 3 Sig: TAKE 1 TABLET EVERY DAY DON: No Authorizing Provider: THIEN PATTERSON MD Allergies As of Date: 05/02/2017 Noted Allergy Reaction NEOSPORIN ([id number]*11/20/2004 bandaid [Other] 11/20/2004 Date Reviewed: 04/30/2017 Reviewed by: Sailaja Razo RN - Fully Assessed Reason for Visit: Refill Request [94] Order(s):atorvastatin (LIPITOR) 10 mg tabletTAKE 1 TABLET EVERY DAYDisp: 90 tabletRfl: 3 Prescriptions as of 05/02/2017 Sig: ATORVASTATIN 10 MG TABLET TAKE 1 TABLET EVERY DAY WARFARIN 3 MG TABLET 6 mg Tues/Fri/Sun and 3 mg al* REVLIMID 15 MG CAPSULE TAKE 1 CAPSULE BY MOUTH EVERY* AMIODARONE 200 MG TABLET Take 0.5 tablets by mouth onc* DEXAMETHASONE 4 MG TABLET TAKE 2 TABLETS ONE TIME WEEKL* LEVOTHYROXINE 25 MCG TABLET TAKE 1 TABLET ONCE DAILY POLYETHYLENE GLYCOL 3350 17 G* Take 17 g by mouth once daily* MUPIROCIN 2 % TOPICAL OINTMENT Apply 1 application to affect* ACETAMINOPHEN 500 MG TABLET Take 1,000 mg by mouth as nee* STOOL SOFTENER ORAL Take 1 tablet by mouth once d* SODIUM CHLORIDE 0.9% FLUSH Start IV as needed for labs o* * TRAMADOL 50 MG TABLET Take 1-2 tablets every 6 hour* Problem List As Of Date 05/02/2017 Noted Resolved Atrial Fibrillation [I48.91] INVALID FOR* Priority: Moderate More... Encounter for Long-Term (Current) Use of Antico*INVALID FOR* Priority: A Pure Hypercholesterolemia [E78.00] INVALID FOR* Priority: A KNEE PAIN - RIGHT [M25.569] INVALID FOR*08/18/2016 Priority: B GENERAL OSTEOARTHROSIS [M15.9] INVALID FOR* BENIGN NEOPLASM LG BOWEL [D12.6] DIVERTICULOSIS OF COLON W/O BLEED [K57.30] Internal hemorrhoids without mention of complic* 12/16/2011 KNEE JOINT REPLACEMENT STATUS [Z96.659] INVALID FOR* Sleep Apnea [G47.30] INVALID FOR* Priority: A More... Fracture of lateral malleolus [S82.63XA] INVALID FOR*08/18/2016 Priority: B More... 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 Vitamin D deficiency [E55.9] INVALID FOR* Esophagitis, unspecified [K20.9] INVALID FOR* Irritated//Inflamed Seborrheic Keratosis [L82.0]INVALID FOR*08/18/2016 Viral wart, unspecified [B07.9] INVALID FOR*08/18/2016 Neoplasm of Uncertain Behavior of skin: R/O Dys*INVALID FOR*08/18/2016 Atypical nevus of face [D22.30] INVALID FOR*08/18/2016 Sebaceous hyperplasia [L73.8] INVALID FOR*08/18/2016 Actinic skin damage [L57.8] INVALID FOR*08/18/2016 Solar lentigo [L81.4] INVALID FOR*08/18/2016 Other seborrheic keratosis [L82.1] INVALID FOR*08/18/2016 Multiple myeloma in relapse (HCC) [C90.02] INVALID FOR* Chronic low back pain [M54.5, G89.29] INVALID FOR* Hypothyroidism, acquired [E03.9] INVALID FOR* Prescriptions ordered this encounter Disp Refills Start End ATORVASTATIN 10 MG TABLET 90 t* 3 05/03/2017 Sig: TAKE 1 TABLET EVERY DAY Medications Discontinued During This Encounter atorvastatin (LIPITOR) 10 mg tablet 90 t* 3 05/13/2016 05/03/2017 Sig: TAKE 1 TABLET ONCE DAILY Disc: Reason for discontinue is not on file. Encounter Status:Closed by NIC BERNARD MA on 05/03/17 PROGRESS Observed: 04/30/2017 Status: COMPLETED Source: [place] 12:59 PM [facility] REPOSITORY HNO ID: [id number] Author: Jessica Mckeon Ma Service: (none) Author Type: (none) Type: Progress Notes Filed: 04/30/2017 1:00 PM Note Text: Pt notified and voiced understanding. Tracker and Med list updated. Jessica Mckeon Ma PROGRESS Observed: 04/30/2017 Status: COMPLETED Source: [place] 11:13 AM [facility] REPOSITORY HNO ID: [id number] Author: Elle Leger Service: (none) Author Type: Physician Type: Progress Notes Filed: 04/30/2017 1:00 PM Note Text: Go to 6mg Tues,Fri, Sun; 3mg all other days Recheck in 2 weeks as planned Elle Leger MD PROGRESS Observed: 04/30/2017 Status: COMPLETED Source: [place] 10:29 AM [facility] REPOSITORY HNO ID: [id number] Author: Sailaja Razo RN Service: (none) Author Type: (none) Type: Progress Notes Filed: 04/30/2017 10:31 AM Note Text: patient had inr completed at [facility] patients inr is 1.7 (patients inr range is 2.0-3.0) patient is currently taking 6mg Tues,Fri and 3mg all other days patients last dose change was on 04/16/17 due to a low level of 1.7 (dose at that time was 6mg Fri and 3mg all other days) patient has had a change in medication as he has started melanoma treatments and no change in diet FYI - patient has had no missed doses Advised patient that they would be contacted regarding medication dose and when to follow up after information is reviewed by provider. After provider review please contact the patient with information and schedule follow up appointment with coumadin clinic. FYI - patient has been scheduled for a 2 week inr follow up on 05/14/17 PROGRESS Observed: 04/29/2017 Status: COMPLETED Source: [place] 9:17 AM [facility] REPOSITORY HNO ID: [id number] Author: Willa ArguelloRn) LUDA Jameson Service: (none) Author Type: Registered Nurse Type: Progress Notes Filed: 04/29/2017 9:22 AM Note Text: ONCOLOGY PATIENT EDUCATION NOTE TOPIC: Monoclonal Antibody, Medications: Darzalex READINESS TO LEARN: COGNITIVE ABILITY: Alert and oriented MOTIVATION TO LEARN: Interested FAMILY SUPPORT: High - Very involved in pt care INSTRUCTION PROVIDED TO: Patient and Spouse INSTRUCTION PROVIDED BY: Nurse Coordinator PATIENT LEARNS BEST BY: Unable to Assess FACTORS AFFECTING LEARNING: None PHYSICAL LIMITATIONS AFFECTING LEARNING: None LEARNING RESPONSE DIAGNOSIS: Multiple Myeloma METHOD OF INSTRUCTION: Individual instruction Written instruction - handouts Verbal instruction PATIENT/FAMILY RESPONSE: Verbalizes understanding of: CHEMOTHERAPY-Regimen, toxicity and side effects FOLLOW UP PLAN: Patient instructed to call with any further issues Recommend - Recommend continued instruction and follow up as directed Follow up phone call. Contact information given. SUPPLEMENTAL MATERIAL: Written material was provided at this visit with the following information: - Side effect management information was provided/discussed including but not limited to: anemia, appetite changes, arthralgia, bowel habit changes, diet, fatigue, hypersensitivity reaction, infection, myalgia, rash, shortness of breath, thrombocytopenia YES - Important phone numbers and contacts during and after hours. YES - Symptoms that require immediate assistance. YES - Preventing infection. YES - Treatment schedule and confirmation of appointment times. NA - Available support groups. NA - The importance of contraception during the course of chemotherapy YES - Neutropenic fever protocol discussed with patient, which included the importance of reporting any fever of 100.4F (38.0C) or greater to the healthcare team as noted on the provided wallet card and/or magnet. YES Time Spent: 20 minutes REFERRAL (RECOMMENDATION): N/A Willa Jameson RN PROTEIN ELEC,UR RAND Collected: 04/29/2017 Status: F Source: [place] 7:43 AM [facility] REPOSITORY TYPE CODE TESTS RESULT OUT OF REFERENCE UNITS RANGE LAB UTPR 0-20 mg/dL Protein Urine Random 7 LAB UALB % Albumin 15.7 LAB UA1G >0 % Alpha 1 Globulin 4.6 LAB UA2G % Alpha 2 Globulin 21.5 LAB UBEG % Beta Globulin 31.6 LAB UGAG % Gamma Globulin 26.5 LAB UPEINT Interpretation SEE COMMENT Result Comment: An M protein is identified on protein electrophoresis. See separate immunofixation report for characterization of the M protein. LAB UPESTF Reviewed by Mamadou Staff Review Heaven Cabrera MD ([id number]) Performed By: #### URAQUEL URMPA #### [facility] [employer] [address] [place] [address] MONOCLONAL PROT UR Collected: 04/29/2017 Status: F Source: [place] 7:43 AM [facility] REPOSITORY TYPE CODE TESTS RESULT OUT OF RANGE REFERENCE UNITS LAB UMPA No M protein is UMPA Result Abnormal identified. M protein Alert is present. LAB UINTP UMPA Interpretation SEE COMMENT Result Comment: An atypical restricted band is present in the kappa region. The presence of free kappa light chains in the urine is consistent with a kappa-containing monoclonal gammopathy. LAB UMPSTF Reviewed by [facility] Staff Heaven Cabrera MD Review ([id number]) Performed By: #### UEPG, URMPA #### [facility] [employer] [address] [place] [address] RENATO ABS GR + CBC Collected: 04/29/2017 Status: F Source: [place] 7:35 AM [facility] REPOSITORY TYPE CODE TESTS RESULT OUT OF REFERENCE UNITS RANGE LAB WWBC 3.70-11.00 k/uL [place] WBC 4.03 LAB WRBC 4.20-6.00 m/uL Low [place] RBC 3.54 LAB WHGB 13.0-17.0 g/dL Low [place] Hemoglobin 12.5 LAB WHCT 39.0-51.0 % Low [place] Hematocrit 36.6 LAB WMCV 80.0-100.0 fL [place] High MCV 103.4 LAB WMCH 26.0-34.0 pg [place] High MCH 35.3 LAB WMCHC 30.5-36.0 g/dL Ren[place] MCHC 34.2 LAB WRDW 11.5-15.0 % [place] RDW 14.8 LAB WPLT 150-400 k/uL Low [place] Platelet Cnt 138 LAB WMPV 9.0-12.7 fL [place] MPV 10.9 Result Comment: Test performed at: [facility] [place], [address] [place] [address]. LAB ABGRAN 1.45-7.50 k/uL Absol Gran 1.52 Count RENATO ISTAT BMP Collected: 04/29/2017 Status: F Source: [place] 7:35 AM [facility] REPOSIT[facility] TYPE CODE TESTS RESULT OUT OF REFERENCE UNITS RANGE LAB NAWB 135-146 mmol/L Sodium, Whole 142 Bld LAB K1WB 3.5-5.0 mmol/L Potassium,Who 4.1 le Bld LAB CLWB 98-110 mmol/L Chloride, 107 Whole Bld LAB ICAWB 1.08-1.30 mmol/L Ionized 1.21 Calcium, WB Result Comment: Please note: This value represents ionized calcium not total calcium. LAB CO2WB 23-32 mmol/L TCO2, Whole 26 Blood LAB GLUWB 65-100 mg/dL High Glucose, 107 Whole Bld LAB BUNWB 10-25 mg/dL BUN, Whole 22 Blood LAB BCRET 0.70-1.40 mg/dL Creatinine,Wh 0.90 ole Bld LAB AGAPWB 0-15 mmol/L Anion Gap, 9 Whole Bld LAB GFRAA eGFR- >60 Amer. LAB GFRNAA . eGFR-All >60 Other Races Result Comment: eGFR (Estimated GFR) Units of measure: mL/min/1.73 meters squared eGFR is derived from the reexpressed MDRD Study equation using the following parameters: serum creatinine, age, gender and race. The creatinine assay has been calibrated to be traceable to IDIL. An eGFR <60 mL/min/1.73m2 for >3 months is consistent with chronic kidney disease. Refer to KDOQI guidelines for clinical interpretation. In patients with unstable renal function, e.g. those with acute kidney injury, the eGFR may not accurately reflect actual GFR. B2 MICROGLOBULIN Collected: 04/29/2017 Status: F Source: [place] 7:35 AM [facility] REPOSITORY TYPE CODE TESTS RESULT OUT OF REFERENCE UNITS RANGE LAB B2M 0.8-2.2 mg/L B2 Microglobulin High 2.4 Performed By: #### B2M, HFP, KLFRS, SEPG, MPASRM #### [facility] [employer] [address] [place], [place] [address] HEPATIC FUNCTN PANEL Collected: 04/29/2017 Status: F Source: [place] 7:35 AM [facility] REPOSITORY TYPE CODE TESTS RESULT OUT OF REFERENCE UNITS RANGE LAB ALB 3.9-4.9 g/dL Low Albumin 3.5 LAB TBIL 0.2-1.3 mg/dL Bilirubin, Total 0.4 LAB CBIL <0.2 mg/dL Bilirubin,Conjuga <0.2 reema LAB ALKP 36-108 U/L Alkaline Phosphatase 49 LAB AST 14-40 U/L AST 22 LAB ALT 10-54 U/L ALT 14 LAB TP 6.3-8.0 g/dL Low Protein, Total 6.0 Performed By: #### B2M, HFP, KLFRS, SEPG, MPASRM #### [facility] [employer] [address] [place] [id number] KAPPA/ALVARADO,FREE,SER Collected: Status: F Source: [place] 04/29/2017 7:35 AM [facility] REPOSITORY TYPE CODE TESTS RESULT OUT OF REFERENCE UNITS RANGE LAB FKAPS 3.30-19.40 mg/L High [place], 81.8 Free, Serum Result Comment: Rarely, increased serum free light chains values may not be detected due to antigen excess phenomenon. Results should always be correlated with other laboratory results and clinical findings. LAB FLAMS 5.7-26.3 mg/L Lambda, Free, 13.0 Serum Result Comment: Rarely, increased serum free light chains values may not be detected due to antigen excess phenomenon. Results should always be correlated with other laboratory results and clinical findings. LAB KLRAT 0.26-1.65 High K/L Ratio, 6.29 Serum Performed By: #### B2M, HFP, KLFRS, SEPG, MPASRM #### [facility] [employer] [address] [place], [place] [address] PROTEIN ELECTROPHOR. Collected: 04/29/2017 Status: F Source: [place] 7:35 AM [facility] REPOSITORY TYPE CODE TESTS RESULT OUT OF REFERENCE UNITS RANGE LAB TPSPE 6.0-8.4 g/dL Total Protein, Low SPE 5.9 LAB ALBE 3.37-4.23 gm/dL Albumin Low 3.32 LAB A1GL 0.18-0.31 gm/dL Alpha 1 Globulin 0.29 LAB A2GL 0.52-0.97 gm/dL Alpha 2 Globulin 0.83 LAB BEGL 0.84-1.36 gm/dL Beta Globulin Low 0.79 LAB GAGL 0.70-1.44 gm/dL Gamma Globulin Low 0.68 LAB SPEINT Interpretation SEE COMMENT Result Comment: No definitive M protein is identified on protein electrophoresis. LAB LOC M Protein N/A Location LAB GPERDL 0.00 gm/dL M Rich 0.00 Concentratn LAB SPESTF SPE Staff Review Reviewed by Mamadou Cabrera MD ([id number]) Performed By: #### B2M, HFP, KLFRS, SEPG, MPASRM #### [facility] [employer] [address] [place], [place] [address] MONOCLONL PROTEIN,BL Collected: 04/29/2017 Status: F Source: [place] 7:35 AM [facility] REPOSITORY TYPE CODE TESTS RESULT OUT OF REFERENCE UNITS RANGE LAB MPAIGG 717-1411 mg/dL Low MPA Serum 678 IgG LAB MPAIGA 78-391 mg/dL Low 28 MPA Serum IgA LAB MPAIGM 53-334 mg/dL Low 26 MPA Serum IgM LAB MPAK 534-1267 mg/dL Serum 557 [place] LAB MPAL 253-653 mg/dL Low Serum 203 Lambda LAB MPAKL 1-3 MPA 2.74 Klaudia/Louis Ratio LAB MPAR No M protein is identified. No MPA M protein is Result identified. LAB MPASTF Staff Reviewed by Review Mamadou Cabrera MD ([id number]) Performed By: #### B2M, HFP, KLFRS, SEPG, MPASRM #### [facility] [address] [place], [place] [address] CNCNPATED Observed: 04/29/2017 Status: COMPLETED Source: [place] 12:00 AM [facility] REPOSITORY Education (HEMAWS) GALE VALDEZ ([id number]) [address] [facility] Date Time Provider Department 04/29/17 WILLA JAMESON (RN) [place] Reason for Visit: First Time Treatment Education [4371] Progress Notes: Willa Jameson RN, RN 04/29/2017 9:22 AM Signed ONCOLOGY PATIENT EDUCATION NOTE TOPIC: Monoclonal Antibody, Medications: Darzalex READINESS TO LEARN: COGNITIVE ABILITY: Alert and oriented MOTIVATION TO LEARN: Interested FAMILY SUPPORT: High - Very involved in pt care INSTRUCTION PROVIDED TO: Patient and Spouse INSTRUCTION PROVIDED BY: Nurse Coordinator PATIENT LEARNS BEST BY: Unable to Assess FACTORS AFFECTING LEARNING: None PHYSICAL LIMITATIONS AFFECTING LEARNING: None LEARNING RESPONSE DIAGNOSIS: Multiple Myeloma METHOD OF INSTRUCTION: Individual instruction Written instruction - handouts Verbal instruction PATIENT/FAMILY RESPONSE: Verbalizes understanding of: CHEMOTHERAPY-Regimen, toxicity and side effects FOLLOW UP PLAN: Patient instructed to call with any further issues Recommend - Recommend continued instruction and follow up as directed Follow up phone call. Contact information given. SUPPLEMENTAL MATERIAL: Written material was provided at this visit with the following information: - Side effect management information was provided/discussed including but not limited to: anemia, appetite changes, arthralgia, bowel habit changes, diet, fatigue, hypersensitivity reaction, infection, myalgia, rash, shortness of breath, thrombocytopenia YES - Important phone numbers and contacts during and after hours. YES - Symptoms that require immediate assistance. YES - Preventing infection. YES - Treatment schedule and confirmation of appointment times. NA - Available support groups. NA - The importance of contraception during the course of chemotherapy YES - Neutropenic fever protocol discussed with patient, which included the importance of reporting any fever of 100.4F (38.0C) or greater to the healthcare team as noted on the provided wallet card and/or magnet. YES Time Spent: 20 minutes REFERRAL (RECOMMENDATION): N/A Willa Jameson RN During your visit today, we recorded the following information about you: Allergies As of Date: 04/29/2017 Noted Allergy Reaction NEOSPORIN ([id number]*11/20/2004 bandaid [Other] 11/20/2004 Date Reviewed: 04/29/2017 Reviewed by: Elyssa Higgins RN, RN - Fully Assessed Prescriptions as of 04/29/2017 Sig: REVLIMID 15 MG CAPSULE TAKE 1 CAPSULE BY MOUTH EVERY* AMIODARONE 200 MG TABLET Take 0.5 tablets by mouth onc* WARFARIN 3 MG TABLET 6mg on Fri and 3 mg all other* DEXAMETHASONE 4 MG TABLET TAKE 2 TABLETS ONE TIME WEEKL* ATORVASTATIN 10 MG TABLET TAKE 1 TABLET ONCE DAILY LEVOTHYROXINE 25 MCG TABLET TAKE 1 TABLET ONCE DAILY POLYETHYLENE GLYCOL 3350 17 G* Take 17 g by mouth once daily* MUPIROCIN 2 % TOPICAL OINTMENT Apply 1 application to affect* ACETAMINOPHEN 500 MG TABLET Take 1,000 mg by mouth as nee* STOOL SOFTENER ORAL Take 1 tablet by mouth once d* SODIUM CHLORIDE 0.9% FLUSH Start IV as needed for labs o* * TRAMADOL 50 MG TABLET Take 1-2 tablets every 6 hour* Encounter Status:Closed by WILLA JAMESON on 04/29/17 RENATO CBC AND DIFF Collected: 04/21/2017 Status: F Source: [place] 11:40 AM [facility] [place] REPOSITORY TYPE CODE TESTS RESULT OUT OF REFERENCE UNITS RANGE LAB WWBC 3.70-11.00 k/uL [place] WBC 4.17 LAB WRBC 4.20-6.00 m/uL Low Renato RBC 3.58 LAB WHGB 13.0-17.0 g/dL Low [place] Hemoglobin 12.6 LAB WHCT 39.0-51.0 % Low [place] Hematocrit 36.8 LAB WMCV 80.0-100.0 fL Ren[place] High MCV 102.8 LAB WMCH 26.0-34.0 pg [place] High MCH 35.2 LAB WMCHC 30.5-36.0 g/dL [place] MCHC 34.2 LAB WRDW 11.5-15.0 % Ren[place] RDW 14.8 LAB WPLT 150-400 k/uL Low [place] Platelet Cnt 89 LAB WMPV 9.0-12.7 fL [place] MPV 10.9 Result Comment: Test performed at: [facility], [address] [place] [address]. LAB WNEUT % [place] Neut% 34.2 LAB WLYMP % [place] Lymp% 42.7 LAB WMONOC % Renato Castro% 16.8 LAB WEOS % [place] Eos% 5.8 LAB WBASO % [place] Baso% 0.5 LAB WANEUT 1.45-7.5 k/uL Low 0 [place] Abs Neut 1.43 LAB WALYMP 1.00-4.0 k/uL 0 Ren[place] Abs Lymp 1.78 LAB WAMONO <0.87 k/uL [place] Abs Castro 0.70 LAB WAEOS <0.46 k/uL [place] Abs Eos 0.24 LAB WABASO <0.11 k/uL Ren[place] Abs Baso <0.03 TYPE AND SCREEN Collected: 04/21/2017 Status: F Source: [place] 12:00 AM [facility] REPOSITORY Order Comment: Reason for Type AND Screen/Red Cells: ROUTINE TYPE CODE TESTS RESULT OUT OF RANGE REFERENCE UNITS LAB B10.0800 O Normal BLOOD TYPE GEL POSITIVE LAB B100.4000 Normal Antibody NEGATIVE Screen Performed By: #### B101.7450 #### [facility] [address] [place], [address] PROGRESS Observed: 04/16/2017 Status: COMPLETED Source: [place] 3:53 PM [facility] REPOSITORY HNO ID: [id number] Author: Sailaja Razo RN Service: (none) Author Type: (none) Type: Progress Notes Filed: 04/16/2017 3:53 PM Note Text: PATIENT NOTIFIED OF INFORMATION PROGRESS Observed: 04/16/2017 Status: COMPLETED Source: [place] 10:09 AM [facility] REPOSITORY HNO ID: [id number] Author: Elle Leger Service: (none) Author Type: Physician Type: Progress Notes Filed: 04/16/2017 3:53 PM Note Text: Go to 6 mg on Tu and Wed, 3 mg all other days Recheck in 2 weeks as planned. Elle Leger MD PROGRESS Observed: 04/16/2017 Status: COMPLETED Source: [place] 8:46 AM [facility] REPOSITORY HNO ID: [id number] Author: Sailaja Razo RN Service: (none) Author Type: (none) Type: Progress Notes Filed: 04/16/2017 8:48 AM Note Text: patient had inr completed at [facility] patients inr is 1.8 (patients inr range is 2.0-3.0) patient is currently taking 6mg Fri and 3mg all other days patients last dose change was on 11/20/16 due to a low level of 1.8 (dose at that time was 3mg daily) patient has had no changes in medication and no change in diet Advised patient that they would be contacted regarding medication dose and when to follow up after information is reviewed by provider. After provider review please contact the patient with information and schedule follow up appointment with coumadin clinic. FYI - patient has been scheduled for a 2 week inr follow upon 04/30/17 PROGRESS Observed: 04/07/2017 Status: COMPLETED Source: [place] 10:10 AM [facility] REPOSITORY HNO ID: [id number] Author: Harsh Terry Service: (none) Author Type: Physician Type: Progress Notes Filed: 04/07/2017 4:09 PM Note Text: Diagnosis: 1) [place] light chain only multiple myeloma. HPI: The patient is a 77 yo male who was evaluated for pain in the right shoulder in April of 2011. Initially he had pain across the top of the shoulder. The onset was following lifting some luggage when he was on a cruise. He underwent an injection which didn't help the pain. He also had plain films which didn't show any significant bony pathology. He was referred to an orthopedic surgeon who ordered an MRI of the shoulder on 06/29/11. The study revealed multiple metastatic deposits throughout the shoulder girdle, involving the visualized humerus, scapula and clavicle. There was a large expansile lesion within the scapula extending into the periscapular soft tissues along the deep and superficial surface there was also a large expansile lesion of the distal clavicle. Work up has revealed kappa light chain multiple myeloma. Previous therapy: 1) VMP x3 cycles. Therapy was held due to worsening fatigue and neuropathy. He also had significant difficulty with constipation throughout his treatment course. Laboratory analysis revealed marked reduction in serum kappa light chain. 2) Velcade/dex (day 1, 8 and 15 every 28 days). Began 11/06/2014. Current therapy: 1) Velcade/dex (day 1, 8 and 15 every 28 days). 2) Revlimid 15 mg days 1-21. Since 06/2015. Presents for ongoing oncologic management. Interim history: He's been having more knee pain and that's been causing him to alter his gait which has been causing some lower back pain. Otherwise he has no complaints. He is tolerating Revlimid well with no symptomatic side effect. PMH, medications and allergies as below personally reviewed by me today. Any changes documented in appropriate section. ROS: Constitutional: Denies episodes of fever and night sweats. Not significantly fatigued. Normal appetite. Neuro: Denies METZGER, vertigo, dizziness and imbalance. Denies symptoms of neuropathy. HEENT: No recent change in voice, vision or hearing. Resp: Denies cough, wheeze and hemoptysis. Denies shortness of breath at rest. CVS: Denies exertional chest pain, PND, orthopnea and LE edema. GI: Denies dysgeusia. Denies symptoms of stomatitis. Denies dysphagia and odynophagia. Denies reflux, n/v, change in bowel habits and abdominal pain. : Denies dysuria or gross hematuria. No symptoms of bladder outlet obstruction. Endo: Denies hot flashes. Denies polyuria and polydipsia. Denies heat and cold intolerance. Musculoskeletal: See above. Derm: Denies rash. Denies jaundice and diffuse pruritis. Heme: Denies unusual bleeding and unexplained bruising. Psych: Normal mood. PHYSICAL EXAM: Vitals: Blood pressure 115/58, pulse 83, temperature 36.6 ?C (97.8 ?F), weight 99.3 kg (219 lb). Well-appearing and in no acute distress. EYES: Sclerae are anicteric bilaterally. NECK: Supple. No enlargement of thyroid. LYMPHATIC: There is no palpable cervical, supraclavicular adenopathy. RESPIRATORY: Normal air entry. ABDOMEN: The abdomen is nondistended. There is no organomegaly. No tenderness. Extremities: Trace edema both ankles/distal LEs-stable. SKIN: No rash. 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 No focal motor weakness. ASSESSMENT/PLAN: 1) Multiple myeloma. Light chain only disease. Relapsed with increase in serum kappa light chain and very small amount kappa in 24 hour urine. 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 -Reviewed labs. Increasing trend in serum kappa light chain. -I reviewed options with him. He's never really had a complete remission and he once to remain aggressive in treating the disease which I think is very reasonable. I therefore recommended we changed therapy to daratumumab/Pomalyst/dexamethasone beginning with daratumumab and adding Pomalyst month two. -I discussed the rationale, logistics, potential risks (including ), benefits and alternatives, as well as the personnel involved in the administration of daratumumab. I answered his questions in detail and he verbalized understanding and agreed with the recommended therapy. Please see the electronic consent document for details of doses and schedule. Plan: -Complete the last week of Revlimid. -Begin daratumumab in about 2-3 weeks. -Plan on adding Pomalyst second month of treatment. -Continue Zometa every 3 months. Harsh Terry DO CNOVSP Observed: 04/07/2017 Status: COMPLETED Source: [place] 9:30 AM [facility] REPOSITORY Visit (SP) Office ([place]) GALE VALDEZ ([id number]) [address] [facility] Date Time Provider Department 04/07/17 9:30 AM HARSH TERRY During your visit today, we recorded the following information about you: Temperature Pulse Blood pressure Weight 97.8 degrees 83/minute 115/58 99.3 kg Kianna Hill LPN, LPN 04/07/2017 10:25 AM Signed Est pt. , discuss recent lab results, tx tomorrow Kianna Smith MUKUND Hill Rosi FernandolizDO 04/07/2017 4:09 PM Signed Diagnosis: 1) [place] light chain only multiple myeloma. HPI: The patient is a 77 yo male who was evaluated for pain in the right shoulder in April of 2011. Initially he had pain across the top of the shoulder. The onset was following lifting some luggage when he was on a cruise. He underwent an injection which didn't help the pain. He also had plain films which didn't show any significant bony pathology. He was referred to an orthopedic surgeon who ordered an MRI of the shoulder on 06/29/11. The study revealed ANDquot;multiple metastatic deposits throughout the shoulder girdle, involving the visualized humerus, scapula and clavicle. There was a large expansile lesion within the scapula extending into the periscapular soft tissues along the deep and superficial surface there was also a large expansile lesion of the distal clavicle.ANDquot; Work up has revealed kappa light chain multiple myeloma. Previous therapy: 1) VMP x3 cycles. Therapy was held due to worsening fatigue and neuropathy. He also had significant difficulty with constipation throughout his treatment course. Laboratory analysis revealed marked reduction in serum kappa light chain. 2) Velcade/dex (day 1, 8 and 15 every 28 days). Began 11/06/2014. Current therapy: 1) Velcade/dex (day 1, 8 and 15 every 28 days). 2) Revlimid 15 mg days 1-21. Since 06/2015. Presents for ongoing oncologic management. Interim history: He's been having more knee pain and that's been causing him to alter his gait which has been causing some lower back pain. Otherwise he has no complaints. He is tolerating Revlimid well with no symptomatic side effect. PMH, medications and allergies as below personally reviewed by me today. Any changes documented in appropriate section. ROS: Constitutional: Denies episodes of fever and night sweats. Not significantly fatigued. Normal appetite. Neuro: Denies METZGER, vertigo, dizziness and imbalance. Denies symptoms of neuropathy. HEENT: No recent change in voice, vision or hearing. Resp: Denies cough, wheeze and hemoptysis. Denies shortness of breath at rest. CVS: Denies exertional chest pain, PND, orthopnea and LE edema. GI: Denies dysgeusia. Denies symptoms of stomatitis. Denies dysphagia and odynophagia. Denies reflux, n/v, change in bowel habits and abdominal pain. : Denies dysuria or gross hematuria. No symptoms of bladder outlet obstruction. Endo: Denies hot flashes. Denies polyuria and polydipsia. Denies heat and cold intolerance. Musculoskeletal: See above. Derm: Denies rash. Denies jaundice and diffuse pruritis. Heme: Denies unusual bleeding and unexplained bruising. Psych: Normal mood. PHYSICAL EXAM: Vitals: Blood pressure 115/58, pulse 83, temperature 36.6 ?C (97.8 ?F), weight 99.3 kg (219 lb). Well-appearing and in no acute distress. EYES: Sclerae are anicteric bilaterally. NECK: Supple. No enlargement of thyroid. LYMPHATIC: There is no palpable cervical, supraclavicular adenopathy. RESPIRATORY: Normal air entry. ABDOMEN: The abdomen is nondistended. There is no organomegaly. No tenderness. Extremities: Trace edema both ankles/distal LEs-stable. SKIN: No rash. 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 No focal motor weakness. ASSESSMENT/PLAN: 1) Multiple myeloma. Light chain only disease. Relapsed with increase in serum kappa light chain and very small amount kappa in 24 hour urine. 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 -Reviewed labs. Increasing trend in serum kappa light chain. -I reviewed options with him. He's never really had a complete remission and he once to remain aggressive in treating the disease which I think is very reasonable. I therefore recommended we changed therapy to daratumumab/Pomalyst/dexamethasone beginning with daratumumab and adding Pomalyst month two. -I discussed the rationale, logistics, potential risks (including ), benefits and alternatives, as well as the personnel involved in the administration of daratumumab. I answered his questions in detail and he verbalized understanding and agreed with the recommended therapy. Please see the electronic consent document for details of doses and schedule. Plan: -Complete the last week of Revlimid. -Begin daratumumab in about 2-3 weeks. -Plan on adding Pomalyst second month of treatment. -Continue Zometa every 3 months. Harsh Terry DO Referring Provider: HARSH TERRY [[id number]] Allergies As of Date: 04/07/2017 Noted Allergy Reaction NEOSPORIN ([id number]*11/20/2004 bandaid [Other] 11/20/2004 Date Reviewed: 04/07/2017 Reviewed by: Kianna Smith (Paint Stock Clerk) MUKUND Hill - Fully Assessed Reason for Visit: Established Patient [175] Primary Visit Diagnosis:Multiple myeloma in relapse (HCC) [C90.02] Follow-up and Disposition History Recorded Prescriptions as of 04/07/2017 Sig: REVLIMID 15 MG CAPSULE TAKE 1 CAPSULE BY MOUTH EVERY* AMIODARONE 200 MG TABLET Take 0.5 tablets by mouth onc* WARFARIN 3 MG TABLET 6mg on Fri and 3 mg all other* DEXAMETHASONE 4 MG TABLET TAKE 2 TABLETS ONE TIME WEEKL* ATORVASTATIN 10 MG TABLET TAKE 1 TABLET ONCE DAILY LEVOTHYROXINE 25 MCG TABLET TAKE 1 TABLET ONCE DAILY POLYETHYLENE GLYCOL 3350 17 G* Take 17 g by mouth once daily* MUPIROCIN 2 % TOPICAL OINTMENT Apply 1 application to affect* ACETAMINOPHEN 500 MG TABLET Take 1,000 mg by mouth as nee* STOOL SOFTENER ORAL Take 1 tablet by mouth once d* SODIUM CHLORIDE 0.9% FLUSH Start IV as needed for labs o* * TRAMADOL 50 MG TABLET Take 1-2 tablets every 6 hour* Problem List As Of Date 04/07/2017 Noted Resolved Atrial Fibrillation [I48.91] INVALID FOR* Priority: Moderate More... Encounter for Long-Term (Current) Use of Antico*INVALID FOR* Priority: A Pure Hypercholesterolemia [E78.00] INVALID FOR* Priority: A KNEE PAIN - RIGHT [M25.569] INVALID FOR*08/18/2016 Priority: B GENERAL OSTEOARTHROSIS [M15.9] INVALID FOR* BENIGN NEOPLASM LG BOWEL [D12.6] DIVERTICULOSIS OF COLON W/O BLEED [K57.30] Internal hemorrhoids without mention of complic* 12/16/2011 KNEE JOINT REPLACEMENT STATUS [Z96.659] INVALID FOR* Sleep Apnea [G47.30] INVALID FOR* Priority: A More... Fracture of lateral malleolus [S82.63XA] INVALID FOR*08/18/2016 Priority: B More... 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 Vitamin D deficiency [E55.9] INVALID FOR* Esophagitis, unspecified [K20.9] INVALID FOR* Irritated//Inflamed Seborrheic Keratosis [L82.0]INVALID FOR*08/18/2016 Viral wart, unspecified [B07.9] INVALID FOR*08/18/2016 Neoplasm of Uncertain Behavior of skin: R/O Dys*INVALID FOR*08/18/2016 Atypical nevus of face [D22.30] INVALID FOR*08/18/2016 Sebaceous hyperplasia [L73.8] INVALID FOR*08/18/2016 Actinic skin damage [L57.8] INVALID FOR*08/18/2016 Solar lentigo [L81.4] INVALID FOR*08/18/2016 Other seborrheic keratosis [L82.1] INVALID FOR*08/18/2016 Multiple myeloma in relapse (HCC) [C90.02] INVALID FOR* Chronic low back pain [M54.5, G89.29] INVALID FOR* Hypothyroidism, acquired [E03.9] INVALID FOR* Visit Notes: >> Kianna Hill LPN WedApr 07, 2017 9:35 AM Status: Signed Est pt. , discuss recent lab results, tx tomorrow Kianna Hill LPN Encounter Status:Closed by HARSH TERRY DO on 04/07/17 MONOCLONAL PROT UR Collected: 03/29/2017 Status: F Source: [place] 8:33 AM [facility] REPOSITORY TYPE CODE TESTS RESULT OUT OF RANGE REFERENCE UNITS LAB UMPA No M protein is UMPA Result Abnormal identified. M protein Alert is present. LAB UINTP UMPA Interpretation SEE COMMENT Result Comment: An atypical restricted band is present in the kappa region. The presence of free kappa light chains in the urine is consistent with a kappa-containing monoclonal gammopathy. LAB UMPSTF UMPA Reviewed by Staff Review Patricio Zaragoza M.D., PhD ([id number]) Performed By: #### URSHIREEN UEPG #### [facility] [employer] [address] [id number] PROTEIN ELEC,UR RAND Collected: 03/29/2017 Status: F Source: [place] 8:33 AM [facility] REPOSITORY TYPE CODE TESTS RESULT OUT OF REFERENCE UNITS RANGE LAB UTPR 0-20 mg/dL Protein Urine Random 13 LAB UALB % Albumin 18.5 LAB UA1G >0 % Alpha 1 Globulin 8.1 LAB UA2G % Alpha 2 Globulin 21.3 LAB UBEG % Beta Globulin 28.6 LAB UGAG % Gamma Globulin 23.5 LAB UPEINT Interpretation SEE COMMENT Result Comment: An M protein is identified on protein electrophoresis. See separate immunofixation report for characterization of the M protein. LAB UPESTF Staff Reviewed by Review Patricio Zaragoza M.D., PhD ([id number]) Performed By: #### URMPA, UEPG #### [facility] [employer] [facility] [place], [place] [address] B2 MICROGLOBULIN Collected: 03/29/2017 Status: F Source: [place] 8:16 AM [facility] REPOSITORY TYPE CODE TESTS RESULT OUT OF REFERENCE UNITS RANGE LAB B2M 0.8-2.2 mg/L B2 Microglobulin High 2.8 Performed By: #### B2M, CMP, KLFRS, MPASRM, SEPG #### [facility] [address] [place], [place] [address] COMP METABOLIC PANEL Collected: 03/29/2017 Status: F Source: [place] 8:16 AM [facility] REPOSITORY TYPE CODE TESTS RESULT OUT OF REFERENCE UNITS RANGE LAB TP 6.3-8.0 g/dL Low Protein, Total 5.9 LAB ALB 3.9-4.9 g/dL Low Albumin 3.4 LAB CA 8.5-10.2 mg/dL Calcium, Total 8.7 LAB TBIL 0.2-1.3 mg/dL Bilirubin, Total 0.5 LAB ALKP 36-108 U/L Alkaline Phosphatase 52 LAB AST 14-40 U/L AST 21 LAB GLU 74-99 mg/dL Glucose High 103 Result Comment: The [place] [employer] (ADA) provides guidance for cutoff values for fasting glucose and random glucose. The ADA defines fasting as no caloric intake for at least 8 hours. Fas ting plasma glucose results between 100 to 125 mg/dL indicate increased risk for diabetes (prediabetes). Fasting plasma glucose results greater than or equal to 126 mg/dL meet the criteria for diagnosis of diabetes. In the absence of unequivocal hyperglycemia, results should be confirmed by repeat testing. In a patient with classic symptoms of hyperglycemia or hyperglycemic crisis, random plasma glucose results greater than or equal to 200 mg/dL meet the criteria for diagnosis of diabetes. Reference: Standards of Medical Care in Diabetes 2016, [place] [employer]. Diabetes Care. 2016.39(Suppl 1). LAB BUN 9-24 mg/dL BUN 11 LAB CRET 0.73-1.22 mg/dL Creatinine 0.91 LAB NA 136-144 mmol/L Sodium 140 LAB K 3.7-5.1 mmol/L Potassium 4.1 LAB CL 97-105 mmol/L Chloride High 106 LAB CO2 22-30 mmol/L CO2 25 LAB AGAP 9-18 mmol/L Anion Gap 9 LAB ALT 10-54 U/L ALT 20 LAB GFRAA eGFR- Amer. >60 LAB GFRNAA . eGFR-All Other Races >60 Result Comment: eGFR (Estimated GFR) Units of measure: mL/min/1.73 meters squared eGFR is derived from the reexpressed MDRD Study equation using the following parameters: serum creatinine, age, gender and race. The creatinine assay has been calibrated to be traceable to IDMS. An eGFR <60 mL/min/1.73m2 for >3 months is consistent with chronic kidney disease. Refer to KDOQI guidelines for clinical interpretation. In patients with unstable renal function, e.g. those with acute kidney injury, the eGFR may not accurately reflect actual GFR. Performed By: #### B2M, CMP, KLFRS, MPASRM, SEPG #### [facility] [employer] [address] [place], [place] [address] KAPPA/ALVARADO,FREE,SER Collected: Status: F Source: [place] 03/29/2017 8:16 AM [facility] REPOSITORY TYPE CODE TESTS RESULT OUT OF REFERENCE UNITS RANGE LAB FKAPS 3.30-19.40 mg/L High [place], 67.8 Free, Serum Result Comment: Rarely, increased serum free light chains values may not be detected due to antigen excess phenomenon. Results should always be correlated with other laboratory results and clinical findings. LAB FLAMS 5.7-26.3 mg/L Lambda, Free, 15.8 Serum Result Comment: Rarely, increased serum free light chains values may not be detected due to antigen excess phenomenon. Results should always be correlated with other laboratory results and clinical findings. LAB KLRAT 0.26-1.65 High K/L Ratio, 4.29 Serum Performed By: #### Yony, JUAN, JUSTIN, MPASRM, SEPG #### [facility] [employer] [address] [place], [place] [address] MONOCLONL PROTEIN,BL Collected: 03/29/2017 Status: F Source: [place] 8:16 AM [facility] REPOSITORY TYPE CODE TESTS RESULT OUT OF REFERENCE UNITS RANGE LAB MPAIGG 717-1411 mg/dL Low MPA Serum 653 IgG LAB MPAIGA 78-391 mg/dL Low 24 MPA Serum IgA LAB MPAIGM 53-334 mg/dL Low 31 MPA Serum IgM LAB MPAK 534-1267 mg/dL Low Serum 503 [place] LAB MPAL 253-653 mg/dL Low Serum 180 Lambda LAB MPAKL 1-3 MPA 2.79 Klaudia/Louis Ratio LAB MPAR No M protein is identified. No MPA M protein is Result identified. LAB MPASTF Staff Reviewed by Dipti Zaragoza M.D., PhD ([id number]) Performed By: #### B2M, JUAN, JUSTIN, MPASRM, SEPG #### [facility] [employer] [address] [place], [place] [address] PROTEIN ELECTROPHOR. Collected: 03/29/2017 Status: F Source: [place] 8:16 AM [facility] REPOSITORY TYPE CODE TESTS RESULT OUT OF REFERENCE UNITS RANGE LAB TPSPE 6.0-8.4 g/dL Total Protein, Low SPE 5.6 LAB ALBE 3.37-4.23 gm/dL Albumin Low 3.30 LAB A1GL 0.18-0.31 gm/dL Alpha 1 Globulin 0.23 LAB A2GL 0.52-0.97 gm/dL Alpha 2 Globulin 0.72 LAB BEGL 0.84-1.36 gm/dL Beta Globulin Low 0.73 LAB GAGL 0.70-1.44 gm/dL Gamma Globulin Low 0.63 LAB SPEINT Interpretation SEE COMMENT Result Comment: No definitive M protein is identified on protein electrophoresis. Hypogammaglobulinemia is present, which can be seen in the setting of monoclonal gammopathy. If clinically indicated, monoclonal protein analysis and serum free light chain analysis are suggested to ev aluate further for monoclonal gammopathy. LAB LOC M Protein N/A Location LAB GPERDL 0.00 gm/dL M Rich 0.00 Concentratn LAB SPESTF SPE Staff Review Reviewed by Patricio Zaragoza M.D., PhD ([id number]) Performed By: #### B2M, CMP, KLFRS, MPASRM, SEPG #### [facility] [address] [address] PROGRESS Observed: 03/22/2017 Status: COMPLETED Source: [place] 9:06 AM [facility] REPOSITORY HNO ID: [id number] Author: Elle Leger Service: (none) Author Type: Physician Type: Progress Notes Filed: 03/22/2017 10:54 AM Note Text: I agree with the advice given; stay on 6mg Fri and 3mg all other days Recheck in 3 weeks as planned Elle Leger MD PROGRESS Observed: 03/22/2017 Status: COMPLETED Source: [place] 8:55 AM [facility] REPOSITORY HNO ID: [id number] Author: Sailaja Razo RN Service: (none) Author Type: (none) Type: Progress Notes Filed: 03/22/2017 8:56 AM Note Text: patient had inr completed at [facility] patients inr is 2.9 (patients inr range is 2.0-3.0) patient is currently taking 6mg Fri and 3mg all other days patients last dose change was on 11/20/16 due to a low level of 1.8 (dose at that time was 3mg daily) patient has had no changes in medication and no change in diet Advised patient to continue on the same dose(s) and that they would only be contacted regarding dosage and follow up instructions after review with provider, if a change is needed. Written instructions given and patient verbalized understanding. Presently scheduled in 3 weeks (04/16/17) for follow up INR. HOSP Observed: 03/22/2017 Status: COMPLETED Source: [place] 8:45 AM [facility] REPOSITORY Anticoagulation Visit (COUMWS) GALE VALDEZ ([id number]) [address] [facility] Date Time Provider Department 03/22/17 8:45 AM [facility] COUMWS During your visit today, we recorded the following information about you: Sailaja Razo RN 03/22/2017 8:56 AM Signed patient had inr completed at [facility] patients inr is 2.9 (patients inr range is 2.0-3.0) patient is currently taking 6mg Fri and 3mg all other days patients last dose change was on 11/20/16 due to a low level of 1.8 (dose at that time was 3mg daily) patient has had no changes in medication and no change in diet Advised patient to continue on the same dose(s) and that they would only be contacted regarding dosage and follow up instructions after review with provider, if a change is needed. Written instructions given and patient verbalized understanding. Presently scheduled in 3 weeks (04/16/17) for follow up INR. Elle Leger MD 03/22/2017 10:54 AM Signed I agree with the advice given; stay on 6mg Fri and 3mg all other days Recheck in 3 weeks as planned Elle Leger MD Referring Provider: ELLE LEGER [[id number]] Allergies As of Date: 03/22/2017 Noted Allergy Reaction NEOSPORIN ([id number]*11/20/2004 bandaid [Other] 11/20/2004 Date Reviewed: 03/22/2017 Reviewed by: Sailaja Razo RN - Fully Assessed Reason for Visit: Anticoagulation [8] Visit Diagnosis:Chronic atrial fibrillation (HCC) [I48.2] Prescriptions as of 03/22/2017 Sig: LENALIDOMIDE 15 MG CAPSULE TAKE 1 CAPSULE BY MOUTH EVERY* AMIODARONE 200 MG TABLET Take 0.5 tablets by mouth onc* WARFARIN 3 MG TABLET 6mg on Fri and 3 mg all other* DEXAMETHASONE 4 MG TABLET TAKE 2 TABLETS ONE TIME WEEKL* ATORVASTATIN 10 MG TABLET TAKE 1 TABLET ONCE DAILY LEVOTHYROXINE 25 MCG TABLET TAKE 1 TABLET ONCE DAILY POLYETHYLENE GLYCOL 3350 17 G* Take 17 g by mouth once daily* MUPIROCIN 2 % TOPICAL OINTMENT Apply 1 application to affect* ACETAMINOPHEN 500 MG TABLET Take 1,000 mg by mouth as nee* STOOL SOFTENER ORAL Take 1 tablet by mouth once d* SODIUM CHLORIDE 0.9% FLUSH Start IV as needed for labs o* * TRAMADOL 50 MG TABLET Take 1-2 tablets every 6 hour* Problem List As Of Date 03/22/2017 Noted Resolved Atrial Fibrillation [I48.91] INVALID FOR* Priority: Moderate More... Encounter for Long-Term (Current) Use of Antico*INVALID FOR* Priority: A Pure Hypercholesterolemia [E78.00] INVALID FOR* Priority: A KNEE PAIN - RIGHT [M25.569] INVALID FOR*08/18/2016 Priority: B GENERAL OSTEOARTHROSIS [M15.9] INVALID FOR* BENIGN NEOPLASM LG BOWEL [D12.6] DIVERTICULOSIS OF COLON W/O BLEED [K57.30] Internal hemorrhoids without mention of complic* 12/16/2011 KNEE JOINT REPLACEMENT STATUS [Z96.659] INVALID FOR* Sleep Apnea [G47.30] INVALID FOR* Priority: A More... Fracture of lateral malleolus [S82.63XA] INVALID FOR*08/18/2016 Priority: B More... 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 Vitamin D deficiency [E55.9] INVALID FOR* Esophagitis, unspecified [K20.9] INVALID FOR* Irritated//Inflamed Seborrheic Keratosis [L82.0]INVALID FOR*08/18/2016 Viral wart, unspecified [B07.9] INVALID FOR*08/18/2016 Neoplasm of Uncertain Behavior of skin: R/O Dys*INVALID FOR*08/18/2016 Atypical nevus of face [D22.30] INVALID FOR*08/18/2016 Sebaceous hyperplasia [L73.8] INVALID FOR*08/18/2016 Actinic skin damage [L57.8] INVALID FOR*08/18/2016 Solar lentigo [L81.4] INVALID FOR*08/18/2016 Other seborrheic keratosis [L82.1] INVALID FOR*08/18/2016 Multiple myeloma in relapse (HCC) [C90.02] INVALID FOR* Chronic low back pain [M54.5, G89.29] INVALID FOR* Hypothyroidism, acquired [E03.9] INVALID FOR* Follow-up and Disposition History Recorded Encounter Status:Closed by KARL JUSTIN MA on 03/22/17 OBSOLETE Observed: 03/21/2017 Status: COMPLETED Source: [place] 12:00 AM [facility] REPOSITORY Refill (HEMAWS) GALE VALDEZ ([id number]) [address] [facility] Date Time Provider Department 03/21/17 HARSH TERRY During your visit today, we recorded the following information about you: Kianna Hill LPN, LPN 03/22/2017 12:24 PM Signed rx will be e- scripted as directed. MUKUND Bentley DO 03/22/2017 1:19 PM Signed The following approved medication requests have been transmitted electronically. Signed Prescriptions Disp Refills REVLIMID 15 mg capsule 21 capsule 0 Sig: TAKE 1 CAPSULE BY MOUTH EVERY DAY FOR 21 DAYS ON THEN 7 DAYS OFF DON: No Authorizing Provider: HARSH TERRY DO Allergies As of Date: 03/21/2017 Noted Allergy Reaction NEOSPORIN ([id number]*11/20/2004 bandaid [Other] 11/20/2004 Date Reviewed: 02/17/2017 Reviewed by: Sailaja Razo RN - Fully Assessed Reason for Visit: Refill Request [94] Order(s):REVLIMID 15 mg capsuleTAKE 1 CAPSULE BY MOUTH EVERY DAY FOR 21 DAYS ON THEN 7 DAYS OFFDisp: 21 capsuleRfl: 0 Prescriptions as of 03/21/2017 Sig: REVLIMID 15 MG CAPSULE TAKE 1 CAPSULE BY MOUTH EVERY* AMIODARONE 200 MG TABLET Take 0.5 tablets by mouth onc* WARFARIN 3 MG TABLET 6mg on Fri and 3 mg all other* DEXAMETHASONE 4 MG TABLET TAKE 2 TABLETS ONE TIME WEEKL* ATORVASTATIN 10 MG TABLET TAKE 1 TABLET ONCE DAILY LEVOTHYROXINE 25 MCG TABLET TAKE 1 TABLET ONCE DAILY POLYETHYLENE GLYCOL 3350 17 G* Take 17 g by mouth once daily* MUPIROCIN 2 % TOPICAL OINTMENT Apply 1 application to affect* ACETAMINOPHEN 500 MG TABLET Take 1,000 mg by mouth as nee* STOOL SOFTENER ORAL Take 1 tablet by mouth once d* SODIUM CHLORIDE 0.9% FLUSH Start IV as needed for labs o* * TRAMADOL 50 MG TABLET Take 1-2 tablets every 6 hour* Problem List As Of Date 03/21/2017 Noted Resolved Atrial Fibrillation [I48.91] INVALID FOR* Priority: Moderate More... Encounter for Long-Term (Current) Use of Antico*INVALID FOR* Priority: A Pure Hypercholesterolemia [E78.00] INVALID FOR* Priority: A KNEE PAIN - RIGHT [M25.569] INVALID FOR*08/18/2016 Priority: B GENERAL OSTEOARTHROSIS [M15.9] INVALID FOR* BENIGN NEOPLASM LG BOWEL [D12.6] DIVERTICULOSIS OF COLON W/O BLEED [K57.30] Internal hemorrhoids without mention of complic* 12/16/2011 KNEE JOINT REPLACEMENT STATUS [Z96.659] INVALID FOR* Sleep Apnea [G47.30] INVALID FOR* Priority: A More... Fracture of lateral malleolus [S82.63XA] INVALID FOR*08/18/2016 Priority: B More... 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 Vitamin D deficiency [E55.9] INVALID FOR* Esophagitis, unspecified [K20.9] INVALID FOR* Irritated//Inflamed Seborrheic Keratosis [L82.0]INVALID FOR*08/18/2016 Viral wart, unspecified [B07.9] INVALID FOR*08/18/2016 Neoplasm of Uncertain Behavior of skin: R/O Dys*INVALID FOR*08/18/2016 Atypical nevus of face [D22.30] INVALID FOR*08/18/2016 Sebaceous hyperplasia [L73.8] INVALID FOR*08/18/2016 Actinic skin damage [L57.8] INVALID FOR*08/18/2016 Solar lentigo [L81.4] INVALID FOR*08/18/2016 Other seborrheic keratosis [L82.1] INVALID FOR*08/18/2016 Multiple myeloma in relapse (HCC) [C90.02] INVALID FOR* Chronic low back pain [M54.5, G89.29] INVALID FOR* Hypothyroidism, acquired [E03.9] INVALID FOR* Prescriptions ordered this encounter Disp Refills Start End REVLIMID 15 MG CAPSULE 21 c* 0 03/22/2017 Cmt: [employer] authorization [id number] Sig: TAKE 1 CAPSULE BY MOUTH EVERY DAY FOR 21 DAYS ON THEN 7 DAYS OFF Medications Discontinued During This Encounter lenalidomide (REVLIMID) 15 mg capsule 21 c* PRN 02/26/2017 03/22/2017 Class: Print RX Cmt: [employer] authorization # [id number]. Sig: TAKE 1 CAPSULE BY MOUTH EVERY DAY FOR 21 DAYS ON AND 7 DAYS OFF Disc: Reason for discontinue is not on file. Encounter Status:Closed by HARSH TERRY DO on 03/22/17 PROGRESS Observed: 03/05/2017 Status: COMPLETED Source: [place] 11:26 AM [facility] REPOSITORY HNO ID: [id number] Author: Priscila Squires (Sw) Service: (none) Author Type: Linux Kernel Developer Type: Progress Notes Filed: 03/05/2017 11:28 AM Note Text: SOCIAL WORK FOLLOW UP NOTE: [facility] Date of service: March 05, 2017 Gale Valdez is being seen for a follow up social work visit. Today's visit includes: patient TOPICS ADDRESSED: Finances; LIANG received call from [email or web address] stating that patient needs to apply for medication assistance through the [employer] before applying through [email or web address]. LIANG saw a note in patient's chart stating that he is receiving his medication through his insurance company now ([employer]). LIANG called patient to confirm this and to make sure he does not need assistance applying for other assistance. Patient reports he is completely covered for this medication now and just received his shipment of this medication earlier today. Patient reports no other needs at this time. PLAN: Continue follow up as needed F/U APPOINTMENT: BEAR Baldwin Observed: 03/05/2017 Status: COMPLETED Source: [place] 12:00 AM [facility] REPOSITORY Social Work (HERRERA) GALE VALDEZ ([id number]) [address] [facility] Date Time Provider Department 03/05/17 PRISCILA SQUIRES (LIANG) HERRERA During your visit today, we recorded the following information about you: BEAR Monteiro 03/05/2017 11:28 AM Signed SOCIAL WORK FOLLOW UP NOTE: [facility] Date of service: March 05, 2017 Gale Valdez is being seen for a follow up social work visit. Today's visit includes: patient TOPICS ADDRESSED: Finances; SW received call from [email or web address] stating that patient needs to apply for medication assistance through the [employer] before applying through [email or web address]. SW saw a note in patient's chart stating that he is receiving his medication through his insurance company now ([employer]). SW called patient to confirm this and to make sure he does not need assistance applying for other assistance. Patient reports he is completely covered for this medication now and just received his shipment of this medication earlier today. Patient reports no other needs at this time. PLAN: Continue follow up as needed F/U APPOINTMENT: PRN BEAR Monteiro Allergies As of Date: 03/05/2017 Noted Allergy Reaction NEOSPORIN ([id number]*11/20/2004 bandaid [Other] 11/20/2004 Date Reviewed: 02/17/2017 Reviewed by: Sailaja Razo RN - Fully Assessed Reason for Visit: Social Work Services [507] Cmt: medication assistance Prescriptions as of 03/05/2017 Sig: LENALIDOMIDE 15 MG CAPSULE TAKE 1 CAPSULE BY MOUTH EVERY* AMIODARONE 200 MG TABLET Take 0.5 tablets by mouth onc* WARFARIN 3 MG TABLET 6mg on Fri and 3 mg all other* DEXAMETHASONE 4 MG TABLET TAKE 2 TABLETS ONE TIME WEEKL* ATORVASTATIN 10 MG TABLET TAKE 1 TABLET ONCE DAILY LEVOTHYROXINE 25 MCG TABLET TAKE 1 TABLET ONCE DAILY POLYETHYLENE GLYCOL 3350 17 G* Take 17 g by mouth once daily* MUPIROCIN 2 % TOPICAL OINTMENT Apply 1 application to affect* ACETAMINOPHEN 500 MG TABLET Take 1,000 mg by mouth as nee* STOOL SOFTENER ORAL Take 1 tablet by mouth once d* SODIUM CHLORIDE 0.9% FLUSH Start IV as needed for labs o* * TRAMADOL 50 MG TABLET Take 1-2 tablets every 6 hour* Problem List As Of Date 03/05/2017 Noted Resolved Atrial Fibrillation [I48.91] INVALID FOR* Priority: Moderate More... Encounter for Long-Term (Current) Use of Antico*INVALID FOR* Priority: A Pure Hypercholesterolemia [E78.00] INVALID FOR* Priority: A KNEE PAIN - RIGHT [M25.569] INVALID FOR*08/18/2016 Priority: B GENERAL OSTEOARTHROSIS [M15.9] INVALID FOR* BENIGN NEOPLASM LG BOWEL [D12.6] DIVERTICULOSIS OF COLON W/O BLEED [K57.30] Internal hemorrhoids without mention of complic* 12/16/2011 KNEE JOINT REPLACEMENT STATUS [Z96.659] INVALID FOR* Sleep Apnea [G47.30] INVALID FOR* Priority: A More... Fracture of lateral malleolus [S82.63XA] INVALID FOR*08/18/2016 Priority: B More... 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 Vitamin D deficiency [E55.9] INVALID FOR* Esophagitis, unspecified [K20.9] INVALID FOR* Irritated//Inflamed Seborrheic Keratosis [L82.0]INVALID FOR*08/18/2016 Viral wart, unspecified [B07.9] INVALID FOR*08/18/2016 Neoplasm of Uncertain Behavior of skin: R/O Dys*INVALID FOR*08/18/2016 Atypical nevus of face [D22.30] INVALID FOR*08/18/2016 Sebaceous hyperplasia [L73.8] INVALID FOR*08/18/2016 Actinic skin damage [L57.8] INVALID FOR*08/18/2016 Solar lentigo [L81.4] INVALID FOR*08/18/2016 Other seborrheic keratosis [L82.1] INVALID FOR*08/18/2016 Multiple myeloma in relapse (HCC) [C90.02] INVALID FOR* Chronic low back pain [M54.5, G89.29] INVALID FOR* Hypothyroidism, acquired [E03.9] INVALID FOR* Encounter Status:Closed by PRISCILA SQUIRES on 03/05/17 RENATO ABS GR + CBC Collected: 03/02/2017 Status: F Source: [place] 10:49 AM [facility] REPOSITORY TYPE CODE TESTS RESULT OUT OF REFERENCE UNITS RANGE LAB WWBC 3.70-11.00 k/uL [place] WBC 5.65 LAB WRBC 4.20-6.00 m/uL Low [place] RBC 3.87 LAB WHGB 13.0-17.0 g/dL [place] Hemoglobin 13.6 LAB WHCT 39.0-51.0 % [place] Hematocrit 39.5 LAB WMCV 80.0-100.0 fL [place] High MCV 102.1 LAB WMCH 26.0-34.0 pg [place] High MCH 35.1 LAB WMCHC 30.5-36.0 g/dL [place] MCHC 34.4 LAB WRDW 11.5-15.0 % [place] RDW 14.9 LAB WPLT 150-400 k/uL Low [place] Platelet Cnt 99 LAB WMPV 9.0-12.7 fL [place] MPV 11.6 Result Comment: Test performed at: [facility], [address] [place] [address] Rd., [place] [address]. LAB ABGRAN 1.45-7.50 k/uL Absol Gran 2.76 Count OBSOLETE Observed: 02/26/2017 Status: COMPLETED Source: [place] 12:00 AM [facility] REPOSITORY Refill (HEMAWS) GALE VALDEZ ([id number]) [address] [facility] Date Time Provider Department 02/26/17 MARY BENZ During your visit today, we recorded the following information about you: Phylicia Dallas LPN 02/26/2017 12:25 PM Signed Received Revlimid refill request from [facility]. Obtained authorization # [id number] from [email or web address]. Will fax orders once signed by physician. Phylicia Benz MD 02/26/2017 12:36 PM Signed Patient's request for medication is as follows Signed Prescriptions Disp Refills lenalidomide (REVLIMID) 15 mg capsule 21 capsule PRN Sig: TAKE 1 CAPSULE BY MOUTH EVERY DAY FOR 21 DAYS ON AND 7 DAYS OFF DON: No Authorizing Provider: MARY BENZ Order entered - please phone pharmacy and notify patient. Phylicia Dallas LPN 02/26/2017 1:15 PM Signed Orders/Prescription faxed as directed. Phylicia Dallas LPN Allergies As of Date: 02/26/2017 Noted Allergy Reaction NEOSPORIN ([id number]*11/20/2004 bandaid [Other] 11/20/2004 Date Reviewed: 02/17/2017 Reviewed by: Sailaja Razo RN - Fully Assessed Reason for Visit: Refill Request [94] Order(s):lenalidomide (REVLIMID) 15 mg capsuleTAKE 1 CAPSULE BY MOUTH EVERY DAY FOR 21 DAYS ON AND 7 DAYS OFFDisp: 21 capsuleRfl: PRN Prescriptions as of 02/26/2017 Sig: LENALIDOMIDE 15 MG CAPSULE TAKE 1 CAPSULE BY MOUTH EVERY* AMIODARONE 200 MG TABLET Take 0.5 tablets by mouth onc* WARFARIN 3 MG TABLET 6mg on Fri and 3 mg all other* DEXAMETHASONE 4 MG TABLET TAKE 2 TABLETS ONE TIME WEEKL* ATORVASTATIN 10 MG TABLET TAKE 1 TABLET ONCE DAILY LEVOTHYROXINE 25 MCG TABLET TAKE 1 TABLET ONCE DAILY POLYETHYLENE GLYCOL 3350 17 G* Take 17 g by mouth once daily* MUPIROCIN 2 % TOPICAL OINTMENT Apply 1 application to affect* ACETAMINOPHEN 500 MG TABLET Take 1,000 mg by mouth as nee* STOOL SOFTENER ORAL Take 1 tablet by mouth once d* SODIUM CHLORIDE 0.9% FLUSH Start IV as needed for labs o* * TRAMADOL 50 MG TABLET Take 1-2 tablets every 6 hour* Problem List As Of Date 02/26/2017 Noted Resolved Atrial Fibrillation [I48.91] INVALID FOR* Priority: Moderate More... Encounter for Long-Term (Current) Use of Antico*INVALID FOR* Priority: A Pure Hypercholesterolemia [E78.00] INVALID FOR* Priority: A KNEE PAIN - RIGHT [M25.569] INVALID FOR*08/18/2016 Priority: B GENERAL OSTEOARTHROSIS [M15.9] INVALID FOR* BENIGN NEOPLASM LG BOWEL [D12.6] DIVERTICULOSIS OF COLON W/O BLEED [K57.30] Internal hemorrhoids without mention of complic* 12/16/2011 KNEE JOINT REPLACEMENT STATUS [Z96.659] INVALID FOR* Sleep Apnea [G47.30] INVALID FOR* Priority: A More... Fracture of lateral malleolus [S82.63XA] INVALID FOR*08/18/2016 Priority: B More... 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 Vitamin D deficiency [E55.9] INVALID FOR* Esophagitis, unspecified [K20.9] INVALID FOR* Irritated//Inflamed Seborrheic Keratosis [L82.0]INVALID FOR*08/18/2016 Viral wart, unspecified [B07.9] INVALID FOR*08/18/2016 Neoplasm of Uncertain Behavior of skin: R/O Dys*INVALID FOR*08/18/2016 Atypical nevus of face [D22.30] INVALID FOR*08/18/2016 Sebaceous hyperplasia [L73.8] INVALID FOR*08/18/2016 Actinic skin damage [L57.8] INVALID FOR*08/18/2016 Solar lentigo [L81.4] INVALID FOR*08/18/2016 Other seborrheic keratosis [L82.1] INVALID FOR*08/18/2016 Multiple myeloma in relapse (HCC) [C90.02] INVALID FOR* Chronic low back pain [M54.5, G89.29] INVALID FOR* Hypothyroidism, acquired [E03.9] INVALID FOR* Prescriptions ordered this encounter Disp Refills Start End LENALIDOMIDE 15 MG CAPSULE 21 c* PRN 02/26/2017 02/26/2017 Class: Med Update Cmt: [employer] authorization # [id number]. Sig: TAKE 1 CAPSULE BY MOUTH EVERY DAY FOR 21 DAYS ON AND 7 DAYS OFF LENALIDOMIDE 15 MG CAPSULE 21 c* PRN 02/26/2017 Class: Print RX Cmt: [employer] authorization # [id number]. Sig: TAKE 1 CAPSULE BY MOUTH EVERY DAY FOR 21 DAYS ON AND 7 DAYS OFF Medications Discontinued During This Encounter lenalidomide (REVLIMID) 15 mg capsule 21 c* PRN 01/28/2017 02/26/2017 Class: Med Update Cmt: [employer] authorization # [id number] Sig: TAKE 1 CAPSULE BY MOUTH EVERY DAY FOR 21 DAYS ON AND 7 DAYS OFF Disc: Reason for discontinue is not on file. lenalidomide (REVLIMID) 15 mg capsule 21 c* PRN 02/26/2017 02/26/2017 Class: Med Update Cmt: [employer] authorization # [id number]. Sig: TAKE 1 CAPSULE BY MOUTH EVERY DAY FOR 21 DAYS ON AND 7 DAYS OFF Disc: Reason for discontinue is not on file. Encounter Status:Closed by PHYLICIA DALLAS LPN on 02/26/17 PROGRESS Observed: 02/17/2017 Status: COMPLETED Source: [place] 4:51 PM [facility] RE[facility] HNO ID: [id number] Author: Elle Leger Service: (none) Author Type: Physician Type: Progress Notes Filed: 02/17/2017 5:17 PM Note Text: I agree with the advice given; stay same and recheck in 4 weeks Elle Leger MD PROGRESS Observed: 02/17/2017 Status: COMPLETED Source: [place] 3:50 PM [facility] RE[facility]ITORY HNO ID: [id number] Author: Sailaja Razo RN Service: (none) Author Type: (none) Type: Progress Notes Filed: 02/17/2017 3:51 PM Note Text: patient had inr completed at [facility] patients inr is 2.2 (patients inr range is 2.0-3.0) patient is currently taking 6mg Fri and 3mg all other days patients last dose change was on 11/20/16 due to a low level of 1.8 (dose at that times was 3mg daily) patient has had no changes in medication and no change in diet Advised patient to continue on the same dose(s) and that they would only be contacted regarding dosage and follow up instructions after review with provider, if a change is needed. Written instructions given and patient verbalized understanding. Presently scheduled in 4 weeks (03/17/17) for follow up INR. HOSP Observed: 02/17/2017 Status: COMPLETED Source: [place] 3:45 PM [facility] REPOSITORY Anticoagulation Visit (COUMWS) GALE VALDEZ ([id number]) [address] [facility] Date Time Provider Department 02/17/17 3:45 PM [facility] COUMWS During your visit today, we recorded the following information about you: Sailaja Razo RN 02/17/2017 3:51 PM Signed patient had inr completed at [facility] patients inr is 2.2 (patients inr range is 2.0-3.0) patient is currently taking 6mg Fri and 3mg all other days patients last dose change was on 11/20/16 due to a low level of 1.8 (dose at that times was 3mg daily) patient has had no changes in medication and no change in diet Advised patient to continue on the same dose(s) and that they would only be contacted regarding dosage and follow up instructions after review with provider, if a change is needed. Written instructions given and patient verbalized understanding. Presently scheduled in 4 weeks (03/17/17) for follow up INR. Elle Leger MD 02/17/2017 5:17 PM Signed I agree with the advice given; stay same and recheck in 4 weeks Elle Leger MD Referring Provider: ELLE LEGER [[id number]] Allergies As of Date: 02/17/2017 Noted Allergy Reaction NEOSPORIN ([id number]*11/20/2004 bandaid [Other] 11/20/2004 Date Reviewed: 02/17/2017 Reviewed by: Sailaja Razo RN - Fully Assessed Reason for Visit: Anticoagulation [8] Visit Diagnosis:Chronic atrial fibrillation (HCC) [I48.2] Order(s):INR (POC) [3674141] Order #: [id number]. #:[id number] Prescriptions as of 02/17/2017 Sig: LENALIDOMIDE 15 MG CAPSULE TAKE 1 CAPSULE BY MOUTH EVERY* AMIODARONE 200 MG TABLET Take 0.5 tablets by mouth onc* WARFARIN 3 MG TABLET 6mg on Fri and 3 mg all other* DEXAMETHASONE 4 MG TABLET TAKE 2 TABLETS ONE TIME WEEKL* ATORVASTATIN 10 MG TABLET TAKE 1 TABLET ONCE DAILY LEVOTHYROXINE 25 MCG TABLET TAKE 1 TABLET ONCE DAILY POLYETHYLENE GLYCOL 3350 17 G* Take 17 g by mouth once daily* MUPIROCIN 2 % TOPICAL OINTMENT Apply 1 application to affect* ACETAMINOPHEN 500 MG TABLET Take 1,000 mg by mouth as nee* STOOL SOFTENER ORAL Take 1 tablet by mouth once d* SODIUM CHLORIDE 0.9% FLUSH Start IV as needed for labs o* * TRAMADOL 50 MG TABLET Take 1-2 tablets every 6 hour* Problem List As Of Date 02/17/2017 Noted Resolved Atrial Fibrillation [I48.91] INVALID FOR* Priority: Moderate More... Encounter for Long-Term (Current) Use of Antico*INVALID FOR* Priority: A Pure Hypercholesterolemia [E78.00] INVALID FOR* Priority: A KNEE PAIN - RIGHT [M25.569] INVALID FOR*08/18/2016 Priority: B GENERAL OSTEOARTHROSIS [M15.9] INVALID FOR* BENIGN NEOPLASM LG BOWEL [D12.6] DIVERTICULOSIS OF COLON W/O BLEED [K57.30] Internal hemorrhoids without mention of complic* 12/16/2011 KNEE JOINT REPLACEMENT STATUS [Z96.659] INVALID FOR* Sleep Apnea [G47.30] INVALID FOR* Priority: A More... Fracture of lateral malleolus [S82.63XA] INVALID FOR*08/18/2016 Priority: B More... 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 Vitamin D deficiency [E55.9] INVALID FOR* Esophagitis, unspecified [K20.9] INVALID FOR* Irritated//Inflamed Seborrheic Keratosis [L82.0]INVALID FOR*08/18/2016 Viral wart, unspecified [B07.9] INVALID FOR*08/18/2016 Neoplasm of Uncertain Behavior of skin: R/O Dys*INVALID FOR*08/18/2016 Atypical nevus of face [D22.30] INVALID FOR*08/18/2016 Sebaceous hyperplasia [L73.8] INVALID FOR*08/18/2016 Actinic skin damage [L57.8] INVALID FOR*08/18/2016 Solar lentigo [L81.4] INVALID FOR*08/18/2016 Other seborrheic keratosis [L82.1] INVALID FOR*08/18/2016 Multiple myeloma in relapse (HCC) [C90.02] INVALID FOR* Chronic low back pain [M54.5, G89.29] INVALID FOR* Hypothyroidism, acquired [E03.9] INVALID FOR* Follow-up and Disposition History Recorded Encounter Status:Closed by JESSICA MCKEON MA on 12/20/17 ALLERGIES ALLERGIES DATE TYPE / CODE NAME / CODE REACTION SEVERITY SOURCE 07/15/2016 Miscellaneous BANDAIDS Rash Unknown [place] Allergy/[id number]([facility]) Hospital Repository 11/20/2004 DRUG/[id number](SNOM NEOMYCIN-BACIT OTHER: SEE C [facility] ED CT) [facility] [place] [facility] 11/20/2004 DRUG/[id number](SNOM NEOMYCIN-BACIT [facility] ED CT) [facility] [place] Repository 11/20/2004 Miscellaneous OTHER [place] Allergy/[id number]([facility] [place]) [place] Repository ENCOUNTERS ENCOUNTERS ADMIT/DISCHARGE ACCOUNT ADMITTING ENCOUNTER LOCATION SOURCE NUMBER CLASS 02/11/2018/02/15/20 [id number] Ambulatory [place] 18 [facility] [place] Repository 02/10/2018/02/12/20 [id number] Ambulatory [address] [place] Repository 02/10/2018/02/12/20 [id number] Ambulatory [address] [place] Repository 01/28/2018/02/01/20 [id number] Ambulatory [address] [place] Repository 01/27/2018 [id number] Ambulatory [place] [facility] ing:RAD Repository 01/14/2018/01/18/20 [id number] Ambulatory [place] 18 [facility] [place] Repository 01/13/2018/01/15/20 [id number] Ambulatory [address] [place] Repository 01/13/2018/01/15/20 [id number] Ambulatory [place] 18 [facility] [place] Repository 12/31/2017/01/04/20 [id number] Ambulatory [place] [place] Repository 12/17/2017/12/21/19 [id number] Ambulatory [place] [facility] [place] Repository 12/16/2017/12/18/19 [id number] Ambulatory [place] [facility] [place] Repository 12/15/2017/12/18/19 [id number] Ambulatory [place] [facility] [place] Repository 12/15/2017/12/18/19 [id number] Ambulatory [place] [facility] [place] Repository 12/10/2017/12/14/19 [id number] Ambulatory [place] [facility] [place] Repository 11/27/2017/11/30/19 [id number] Ambulatory [place] [facility] [place] Repository 11/19/2017/11/23/19 [id number] Ambulatory [place] [facility] [place] Repository 11/19/2017/11/20/19 [id number] Ambulatory [facility] [place] Repository 11/18/2017/11/20/19 [id number] Ambulatory [place] 18 [facility] [place] Repository 11/18/2017/11/20/19 [id number] Ambulatory [place] 18 [facility] [place] Repository 11/16/2017/11/18/19 [id number] Ambulatory [place] 18 [facility] [place] Repository 10/26/2017 [id number] Ambulatory [facility] [facility] ing:HPRAD Repository 10/26/2017/10/27/19 [id number] Ambulatory BMSBuilding:B [place] 18 [facility] Repository 10/26/2017/10/28/19 [id number] Ambulatory [place] 18 [facility] [place] Repository 10/26/2017/10/28/19 [id number] Ambulatory [place] 18 [facility] [place] Repository 10/21/2017/10/26/19 [id number] Ambulatory [place] 18 [facility] [place] Repository 10/21/2017/10/23/19 [id number] Ambulatory [place] 18 [facility] [place] Repository 10/21/2017/10/23/19 [id number] Ambulatory [place] 18 [facility] [place] Repository 10/21/2017/10/23/19 [id number] Ambulatory [place] 18 [facility] [place] Repository 10/08/2017/10/12/19 [id number] Ambulatory [place] 18 [facility] [place] Repository 10/08/2017/10/09/19 [id number] Ambulatory [facility] [place] Repository 10/06/2017/10/07/19 [id number] Ambulatory [place] Ren[place] [address] [place] [address] ing:PT Repository 09/24/2017/09/28/19 [id number] Ambulatory [facility] [place] Repository 09/22/2017/09/23/19 [id number] Ambulatory [facility] [place] Repository 09/22/2017/09/24/19 [id number] Ambulatory [place] 18 [facility] [place] Repository 09/22/2017/09/23/19 [id number] Ambulatory [place] 18 [facility] [place] Repository 09/10/2017/09/14/19 [id number] Ambulatory [facility] [place] Repository 09/09/2017/09/10/19 [id number] Ambulatory [facility] [place] Repository 08/27/2017/08/31/19 [id number] Ambulatory [facility] [place] Repository 08/26/2017/08/28/19 [id number] Ambulatory [facility] [place] Repository 08/26/2017/08/28/19 [id number] Ambulatory [facility] [place] Repository 08/17/2017 [id number] Ambulatory [facility] ing:MRI Repository 08/13/2017/08/17/19 [id number] Ambulatory [place] [facility] [place] Repository 08/12/2017/08/14/19 [id number] Ambulatory [place] [facility] [place] Repository 07/30/2017/08/03/19 [id number] Ambulatory [place] [facility] [place] Repository 07/29/2017/07/31/19 [id number] Ambulatory [place] [facility] [place] Repository 07/29/2017/07/30/19 [id number] Ambulatory [place] [facility] [place] Repository 07/16/2017/07/20/19 [id number] Ambulatory [facility] [place] Repository 07/15/2017/07/17/19 [id number] Ambulatory [place] [facility] [place] Repository 07/15/2017/07/17/19 [id number] Ambulatory [place] [facility] [place] Repository 07/02/2017/07/08/19 [id number] Ambulatory [place] [facility] [place] Repository 06/30/2017/07/02/19 [id number] Ambulatory [place] 18 [facility] [place] Repository 06/30/2017/07/02/19 [id number] Ambulatory [place] [facility] [place] Repository 06/24/2017/06/26/19 [id number] Ambulatory [place] [facility] [place] Repository 06/23/2017/06/25/19 [id number] Ambulatory [place] [facility] [place] Repository 06/17/2017/06/19/19 [id number] Ambulatory [place] [facility] [place] Repository 06/16/2017/06/18/19 [id number] Ambulatory [facility] [place] Repository 06/16/2017/06/17/19 [id number] Ambulatory [facility] [place] Repository 06/10/2017/06/12/19 [id number] Ambulatory [facility] [place] Repository 06/09/2017/06/11/19 [id number] Ambulatory [facility] [place] Repository 06/03/2017/06/05/19 [id number] Ambulatory [facility] [place] Repository 06/02/2017/06/04/19 [id number] Ambulatory [facility] [place] Repository 05/31/2017/06/02/19 [id number] Ambulatory [facility] [place] Repository 05/27/2017/05/29/19 [id number] Ambulatory [facility] [place] Repository 05/26/2017/05/28/19 [id number] Ambulatory [facility] [place] Repository 05/20/2017/05/22/19 [id number] Ambulatory [facility] [place] Repository 05/19/2017/05/21/19 [id number] Ambulatory [facility] [place] Repository 05/19/2017 [id number] Ambulatory [place] [facility] [place] Repository 05/14/2017/05/15/19 [id number] Ambulatory [place] [facility] [place] Repository 05/13/2017/05/15/19 [id number] Ambulatory [facility] [place] Repository 05/13/2017/05/14/19 [id number] Ambulatory [facility] [place] Repository 05/06/2017/05/08/19 [id number] Ambulatory [facility] [place] Repository 05/06/2017 [id number] Ambulatory [place] [facility] [place] Repository 05/06/2017/05/08/19 [id number] Ambulatory [facility] [place] Repository 04/30/2017/05/04/19 [id number] Ambulatory [facility] [place] Repository 04/29/2017/05/01/19 [id number] Ambulatory [facility] [place] Repository 04/29/2017/05/01/19 [id number] Ambulatory [facility] [place] Repository 04/21/2017 [id number] Ambulatory [facility] ing:LABSPEC Repository 04/21/2017/04/22/19 [id number] Ambulatory [facility] [place] Repository 04/16/2017/04/19/19 [id number] Ambulatory [facility] [place] Repository 04/08/2017/04/09/19 [id number] Ambulatory [facility] [place] Repository 04/07/2017/04/08/19 [id number] Ambulatory [address] Repository 03/29/2017/03/29/19 [id number] Ambulatory [address] Repository 03/22/2017/03/23/19 [id number] Ambulatory [address] Repository 03/02/2017/03/03/19 [id number] Ambulatory [address] Repository 02/17/2017/02/19/20 [id number] Ambulatory [address] Repository PAYERS PAYERS ENCOUNTER GUARANTOR PAYER SUBSCRIBER SOURCE 01/27/2018 JAIME A Primary JAIME A [place] [id number] W Insurance:MEDICARE GIFFINDOB: Community OLD JARRED PART A BPolicy [place]: [id number] [id number] Repository [address]Xoa: (913) Date:2018-01-27 [phone] () 01/27/2018 Secondary JAIME A [place] Insurance:HUMANA GIFFINDOB: Community COMMERCIALPolicy [id number] Hospital Number: Repository [id number] Date:[id number] [address] [place] [address]HG: 01/27/2018 Tertiary NOT GIVENUNK Ren[place] Insurance:SELF PAY [facility] Number: Effective Repository Date:2018-01-27 10/26/2017 JAIME A Primary JAIME A [place] [id number] Insurance:MEDICARE GIFFINDOB: [facility] OLD PART A BPolicy Number: [id number] [facility] [id number] Repository [place], [place] Date:2017-10-26 [phone]: () 10/26/2017 Secondary JAIME A [place] Insurance:HUMANA GIFFINDOB: [facility] COMMERCIALPolicy [id number] Hospital Number: Repository [id number] Date:[id number] [address] [address]IF: 10/26/2017 Tertiary NOT GIVENUNK [place] Insurance:SELF PAY [facility] Number: Effective Repository Date:2017-10-26 10/26/2017 JAIME A Primary JAIME A [place] [id number] W Insurance:MEDICARE GIFFINDOB: Community OLD PART A olicy Number: [id number] Regional Medical Center [id number] [place] Date:2017-08-20 [phone]: () 10/26/2017 Secondary JAIME A [place] Insurance:HUMANA GIFFINDOB: [facility] [id number] Hospital Number: Repository [id number] Date:[id number] [address]UN: 10/26/2017 Tertiary NOT GIVENUNK Ren[place] Insurance:SELF PAY [facility] Number: Effective Repository Date:2017-10-26 10/06/2017 JAIME A Primary JAIME A [place] [id number] W Insurance:MEDICARE GIFFINDOB: Community OLD PART A BPolicy Number: [id number] Regional Medical Center [id number] Repository [place] Date:2003-04-01 [phone]: () 10/06/2017 Secondary JAIME A [place] Insurance:HUMANA GIFFINDOB: [facility] [id number] Hospital Number: Repository [id number] Date:[id number] [address]AG: 10/06/2017 Tertiary NOT GIVENUNK [place] Insurance:SELF PAY [facility] Number: Effective Repository Date:2017-08-26 08/17/2017 JAIME A Primary JAIME A [place] [id number] W Insurance:MEDICARE GIFFINDOB: Community OLD PART A olicy Number: [id number] Regional Medical Center [id number] [place]ository [place] Date:2017-08-10 [phone]: () 08/17/2017 Secondary JAIME A [place] Insurance:HUMANA GIFFINDOB: [facility] COMMERCIALPolicy [id number] Hospital Number: Repository [id number] Date:[id number] [address] [place] [address]BO: 08/17/2017 Tertiary NOT GIVENUNK [place] Insurance:SELF PAY [facility]: Effective Repository Date:2017-08-10 04/21/2017 JAIME A Primary JAIME A [place] [id number] Insurance:MEDICARE GIFFINDOB: Community OLD PART A BPolicy Number: [id number] Regional Medical Center [id number] Repository , [place] Date:2017-04-21 31892Ypg: () 04/21/2017 Secondary JAIME A [place] Insurance:HUMANA GIFFINDOB: Community COMMERCIALPolicy [id number] Hospital Number: Repository [id number] Date:[id number] [id number] [place] [id number]: 04/21/2017 Tertiary NOT GIVENUNK Renato Insurance:SELF PAY [facility] Number: Effective Repository Date:2017-04-21
== END ==
PROVIDERS: Family Provider Family Medicine; PCP Family Medicine; Referring Provider Anesthesiology Pain Medicine; Visit Provider Anesthesiology Pain Medicine
DX: M25.562 Pain in left knee (principal)
CPT/HCPCS: 73560

== ENCOUNTER 2018-07-21 11:30 | Outpatient (RCR) | payer MEDICARE, OTHER, SELFPAY ==
--- NOTE | 2018-06-29 08:30 | HP.PTEVAL_ITS ---
Patient's Visit Information ADDISON AGGARWAL is a 78 year old M referred to Physical Therapy by Javier Galvan MD with a diagnosis of L knee OA. Date of Evaluation: 06/29/18 Physical Therapist: Bryce Daniels, PT, ATC - Visit Plan Frequency: 2x /Week Duration: 4 Weeks Plan: L LE stretching and strengthening, balance and proprio, core stab ex's, nustep, and HEP - Subjective Findings: Pt reports intermittent L knee pain for over three years. Pt reports his L knee gives out on him a lot, and he has fallen as a result in the past. Knee never lock up, but it clicks and pops a lot. Pt reports he has been trying to put this off, but his knee keeps giving out on him. Pt reports he recently recieved a cortisone injection, which has helped some. Pt reports he had recent xrays which revealed significant degenerative changes. No sleep difficulty secondary to pain. Pt reports difficulty with stair negotiation and transferring on/off his tractor secondary to pain. 3/10 pain at rest, 7/10 at worst - Pain L knee Pain Intensity (Out of 10): 3 Pain Intensity Range: 7 - Objective Neuro: B LE sensation is WNL to light touch. R patellar reflex= 1/3, L= 2/3. Girth at joint line: L knee 41 cm, R knee 40 cm. ROM: R knee 0-5-120. L knee 0-9-120. MMT: R knee 5/5 throughout. L knee 4/5 throughout. Special tests: Pos itive apley compression test. Palpation: Crepitus with AROM with patellofemoral joint. No obvious deformity this date. - Goals Goal 1:: Decrease L knee pain x 50% to aid with ambulation Goal Time Frame: 4-6 Weeks Goal 2:: Increase L knee strength x 1 grade to aid with stair negotiation Goal Time Frame: 4-6 Weeks Goal 3:: I with HEP Goal Time Frame: 4-6 Weeks - Rehabilitation Potential Physical Therapy Diagnosis: L knee weakness and pain secondary to L knee OA Rehabilitation Potential: Good - Anticipated Interventions Patient/Client Instruction: Educate patient on: Condition, Plan of Care For the Purpose of:: To improve self management Therapeutic Exercise to Include: Strength training, Endurance training, Balance training, Flexibilty training, Dynamic Lumbar Stabilization For the Purpose of:: To decrease pain, To improve muscle performance and motor function Cryotherapy (ice pack, ice massage): Yes For the Purpose of:: To decrease pain Thank you for the opportunity to evaluate your patient. For Medicare and Medicare HMO plans, please review the plan of care and approve it. It will need to be FAXED BACK to us at [phone] for Medicare purposes. For Medicare only, by signing this I certify the plan of care. Please let me know if there are questions or concerns regarding this plan of care. Physician Signature: Date:
--- NOTE | 2018-09-13 09:06 | HP.PT.NRP ---
HP - Discharge Summary (1) - Patient Information JAIME Rosi AGGARWAL was seen in my office for initial evaluation on 06/29/18. The following Plan of Care was established for this patient: Initial Frequency: 2x /Week Initial Duration: 4 Weeks - Anticipated Interventions Patient/Client Instruction: Educate patient on: Condition, Plan of Care For the Purpose of:: To improve self management Therapeutic Exercise to Include: Strength training, Endurance training, Balance training, Flexibilty training, Dynamic Lumbar Stabilization For the Purpose of:: To decrease pain, To improve muscle performance and motor function Cryotherapy (ice pack, ice massage): Yes For the Purpose of:: To decrease pain This patient was last seen in our office . Pertinent comments regarding their Physical therapy will appear below: Pt was treated for L knee pain for 5 PT visits through the date of 07/21/18. Pt has not returned since that date and is discontinued at this time. At this point I will be discontinuing this patient from physical therapy. I would be happy to see this patient again in the future if found appropriate by the physician. Thank you! Bryce Daniels, PT, ATC
== END 2018-07-21 19:00 | disposition home or self-care (01) ==
LOC: PT 11:30
PROVIDERS: Family Provider Family Medicine; PCP Family Medicine; Visit Provider Orthopaedic Surgery
DX: M17.12 Unilateral primary osteoarthritis, left knee (principal)
CPT/HCPCS: 97110; 97161

== ENCOUNTER 2018-07-25 12:18 | Emergency (ER) | payer MEDICARE, OTHER, SELFPAY ==
[2018-07-25] VITALS (7 sets, daily range): BP systolic 103–119; BP diastolic 66–78; PULSE 68–88; RESP 12–20; TEMP 36.6; O2SAT 93–99; BMI 31.8; BMI 31.5
--- NOTE | 2018-07-25 13:10 | EKG12_ITS ---
Test Reason : COUGH Blood Pressure : / mmHG Vent. Rate : 073 BPM Atrial Rate : 080 BPM P-R Int : 000 ms QRS Dur : 106 ms QT Int : 386 ms P-R-T Axes : 000 -49 059 degrees QTc Int : 425 ms Atrial fibrillation Left anterior fascicular block Minimal voltage criteria for LVH, may be normal variant Abnormal ECG Confirmed by SANA UMAÑA, STEPHON ([id number]), editorial writer NIC BASS ([id number]) on 07/27/2018 9:16:13 AM Referred By: ABDIRASHID Confirmed By:STEPHON HOOD MD
--- NOTE | 2018-07-25 13:28 | RAD_ITS ---
STUDY: X-RAY CHEST REASON FOR EXAM: Male, 78 years old. SOB TECHNIQUE: Frontal and lateral views of the chest. COMPARISON: None. FINDINGS: Chronic interstitial lung changes without superimposed acute alveolar disease. There is no demonstrated pleural abnormality. Normal size heart. Normal mediastinum and merlin. Normal visualized pulmonary arteries. Normal visualized aortic arch and descending thoracic aorta. There are diffuse degenerative changes of the visualized thoracic spine. Remote bilateral rib trauma. There is no demonstrated abnormality of the visualized soft tissue structures of the upper abdomen. RAD/Chest PA and Lateral IMPRESSION: Chronic interstitial lung changes without superimposed acute alveolar disease. Electronically Signed: Chris Sousa MD at 13:41 EDT Tel , Service support ,
[2018-07-25] MEDS: Ipratropium/Albuterol Sulfate 3 ML AMPUL.NEB INHALATION (13:35)
[2018-07-25] MEDS: Albuterol 2.5 MG/3 ML VIAL.NEB. INHALATION ×2 (13:45→14:47)
[2018-07-25 14:04] LABS: Absolute Neutrophil Count 4.7 X10^3/uL (2.0-7.7); Basophil# 0.02 X10^3/uL; Basophil% 0.3 % (0-1); Eosinophil# 0.23 X10^3/uL; Eosinophils% 3.1 % (0-5); Hematocrit 37.4 % (40-54); Hemoglobin 12.2 g/dl (13.0-16.5); Lymphocyte % 22.8 % (19-41); Mean Corp Hgb Conc 32.6 g/gl (32-36); Mean Corpuscular Hgb 33.1 pg (27.0-32.0); Mean Corpuscular Volume 101.4 fL (80-94); Mean Platelet Vol. 10.4 fl (6.2-12.0); Monocyte# 0.82 X10^3/uL; Neutrophil # 4.69 X10^3/uL (2.7-7.7); Neutrophil % 62.7 % (47-70); Platelet Count 190 K/mm3 (150-450); RBC Distribution Width SD 66.7 fl (35.1-43.9); Red Blood Count 3.69 M/mm3 (4.6-6.2); White Blood Count 7.5 K/mm3 (4.4-11.0)
[2018-07-25 14:05] LABS: Differential Indicated SCAN CRITERIA MET; POSITIVE COUNT NO; POSITIVE DIFFERENTIAL NO; POSITIVE MORPHOLOGY YES
[2018-07-25 14:20] LABS: Anion Gap 8 (5-15); BUN 23 mg/dL (7-18); BUN/Creat Ratio 18.3 RATIO (10-20); Calcium,Total 8.5 mg/dL (8.5-10.1); Chloride 110 mmol/L (98-107); Creatinine, Serum 1.26 mg/dL (0.70-1.30); EST Glomerular Filtration Rate 59 mL/min (>60); Est Glom Filt Rate - Afr Amer 71 mL/min (>60); Estimated Creatinine Clearance 48.28 ml/min; Glucose 105 mg/dL (74-106); Potassium 4.1 mmol/L (3.5-5.1); Sodium Level 143 mmol/L (136-145)
[2018-07-25 14:27] LABS: Anisocytosis 1+
[2018-07-25 14:34] LABS: BNP,B-Type NATRIURETIC PEPTIDE 275.9 pg/mL (0-100)
--- NOTE | 2018-07-25 15:06 | ED.VISSUMM ---
- ER Visit Summary Date of Service: 07/25/18 Chief Complaint: Cough shortness of breath History of Present Illness: The patient is a 78 M with cough congestion for the past 1 week. He was on antibiotics continues to have cough and congestion. No fever or chills no PE risk factors. Physical Examination: Not appear in acute distress. He is speaking in full sentences does not appear toxic Moist mucous membranes, no obvious facial deformity No C-spine tenderness supple neck. Regular rate and rhythm without any obvious murmurs Coarse and wheezy lungs bilaterally speaking in full sentences without any obvious respiratory distress Abdomen soft and nontender no guarding or rebound Moves all extremities without any difficulty or pain. Skin does not show any obvious rashes or lesions, no trauma. Alert oriented ?3 with no gross focal deficit Emergency Department Course and Treatment: Patient appears well, is significantly improved after nebulizers. I will give him steroids and inhaler for home, this is likely bronchitis, however I did tell him it may be reactive airway disease and he is to follow-up with his doctor for further testing Disposition: Discharge stable condition Impression: Bronchitis This note was generated with [employer] dictation software. It may contain incorrect words, spelling, and punctuation that were not noted in review of the chart prior to signing ED Disposition - Plan for ED Patient: Disposition: Home or Assisted Living Instructions: ED Reactive Airway Disease Prescriptions: Albuterol IH (ProAir) [Proair Hfa (SP)Vent Pts] 1 puff INHALATION Q4H PRN PRN #1 inhaler PRN Reason: Sob &/Or Wheezing levoFLOXacin IV [Levaquin] 750 mg IV Q24 #5 bag Referrals: Tiburcio Leger MD [Primary Care Provider] - 1 Week
[2018-07-25] MEDS: Triamcinolone Acetonide 40 MG/ML Vial IM (15:52)
--- NOTE | 2018-07-25 15:54 | ED.DEP ---
ED Disposition - Plan for ED Patient: Disposition: Home or Assisted Living Instructions: ED Reactive Airway Disease Prescriptions: Albuterol IH (ProAir) [Proair Hfa (SP)Vent Pts] 1 puff INHALATION Q4H PRN PRN #1 inhaler PRN Reason: Sob &/Or Wheezing levoFLOXacin IV [Levaquin] 750 mg IV Q24 #5 bag levoFLOXacin tablet [Levaquin tablet] 500 mg PO DAILY #5 tab Referrals: Tiburcio Leger MD [Primary Care Provider] - 1 Week
== END 2018-07-25 15:59 | disposition home or self-care (01) ==
PROVIDERS: Emergency Provider Emergency Medicine; Family Provider Family Medicine; PCP Family Medicine
DX: J40 Bronchitis, not specified as acute or chronic (principal); I10 Essential (primary) hypertension
CPT/HCPCS: 71046; 80048; 83880; 84484; 85025; 93005; 94640; 96372; 99284; A4216

== ENCOUNTER → 2018-08-26 | Outpatient (CLI) | payer MEDICARE, OTHER, SELFPAY ==
[2018-07-25 12:20] VITALS: BMI 31.5
--- NOTE | 2018-08-26 07:21 | MRI_ITS ---
HISTORY:Multiple myeloma, low back pain across hips, history of fall Multiple myeloma, low back pain across hips, history of fall EXAMINATION: MR Spine Lumbar WO/W Contrast TECHNIQUE: Multiplanar and multisequence MR images of the lumbar spine. IV Contrast dosage and agent: 20 cc dotarem COMPARISON: August 17, 2017 FINDINGS: VERTEBRAE: The vertebral body height is relatively preserved. There is anterior wedging of the T11 and T12 vertebral bodies that is probably physiologic and is seen on the prior study. Focal areas of increased signal are seen on T1 and T2-weighted images within the T11 and T12 vertebral bodies. These were seen on the prior study and are compatible with hemangiomas. Modic type II changes are seen at the endplates throughout the lumbar spine similar to prior study Subchondral sclerosis is seen at the inferior endplate of L2 similar to prior study An area of signal is iso-to slightly hypointense to musculature is seen on T1-weighted images. This is hyperintense to muscle on T2-weighted images and demonstrates increased signal on STIR weighted images. This involves the anterior lateral aspect of the L3 vertebral body. This does enhance with contrast. This was not seen on the prior study and may represent a new myelomatous lesion. There is abnormal signal is seen within the S1 vertebral body. This was present on the prior study. Is there is increased signal on STIR weighted imaging. There is also enhancement in this area postcontrast Dextroscoliosis of the lumbar spine l CORD: Normal position and signal intensity of the conus medullaris. SOFT TISSUES: Unremarkable. T11-12: Sagittal only there is decreased disc height and hydration without evidence of the disc contrast normality or canal stenosis. No significant neural foraminal narrowing T12-L1 sagittal only: Decreased disc height and hydration. There is grade 1 retrolisthesis of T12 on L1 which is unchanged from prior study and appears degenerative. No evidence of canal stenosis or neural foraminal narrowing L1/L2: There is grade 1 retrolisthesis of L1 on L2 similar to prior study. Decreased disc height and hydration. There is a diffuse annular bulge. This does efface the ventral thecal sac. There is a trefoil appearance of the canal at this level similar to prior study. Facet arthrosis with bilateral facet effusions. There is mild left and moderate right neural foraminal narrowing. There is effacement of the right L1 nerve root within the neural foramen similar to prior study L2/L3: Decreased disc height and hydration with posterior osteophytes and diffuse annular bulge. This was seen on the prior study and is similar. Trefoil appearance to the canal. Facet arthrosis with ligamentum flavum hypertrophy. Mild left and moderate to marked right neural foraminal narrowing. There is effacement of the right L2 nerve root within the foramen and laterally. This was seen on the prior study L3-4 there are posterior osteophytes and a diffuse annular bulge. There is a disc extrusion extends superior to the posterior L3 vertebral body. This measures approximately 1 cm craniocaudad. There is was present on the prior study and is unchanged. Trefoil appearance of the canal with facet arthrosis and ligamentum flavum hypertrophy. There is mild to moderate left and moderate right neural foraminal narrowing. There is effacement of the right L3 nerve root as it exits the foramen L4/L5: Decreased disc height and hydration with posterior osteophytes that efface the ventral thecal sac. Trefoil appearance the canal. Ligamentum flavum hypertrophy and facet arthrosis. There is also subarticular recess narrowing at this level. Moderate bilateral neural foraminal narrowing greater on the left. Effacement of the left L4 nerve root as it exits the foramen. There is a large left lateral marginal spur that was seen on the prior study and is similar L5/S1: There is abnormal STIR weighted increased signal within the disc as well as the S1 vertebral body. There is was seen on the prior study but more prominent on today's study and more prominent involvement of the disc. There is intravertebral disc protrusion that is seen at the level of S1. This area does enhance with contrast. I suspect this may also represent myelomatous involvement. There is a diffuse annular bulge. Disc material extends into the neural foramen bilaterally but greater on the left. There is subarticular recess narrowing. Impingement on the right L5 nerve root within the foramen and as it exits the foramen and the left L5 nerve root as it exits the foramen. MRI/Spine Lumbar W/WO Contrast IMPRESSION: Multifocal degenerative change within the lumbar spine as discussed There is an enhancing lesion within the L3 vertebral body that is suspect for a myelomatous lesion. In addition there is increased STIR signal seen within the L1 vertebral body. This is slightly more prominent than on the prior study. There is intravertebral disc protrusion as well as a focal enhancing lesion at the disc also enhances. I suspect there is mild augment his involvement at this level. There is also an intravertebral disc protrusion. Progressive compression of the L1 vertebral body is suspect. at 2242 Reported and signed by: Karen Ayala DO Electronically Signed: Karen Ayala DO at 22:41 EDT Tel , Service support ,
== END | disposition home or self-care (01) ==
LOC: MRI 07:11
PROVIDERS: Family Provider Family Medicine; PCP Family Medicine; Referring Provider Internal Medicine Hematology & Oncology; Visit Provider Internal Medicine Hematology & Oncology
DX: M54.5 Low back pain (principal); G89.29 Other chronic pain; C90.02 Multiple myeloma in relapse
CPT/HCPCS: 72158; A9575

== ENCOUNTER 2018-12-15 09:29 | Inpatient (IN) | payer MEDICARE, OTHER, SELFPAY ==
[2018-07-25 12:20] VITALS: BMI 31.5
[2018-12-15] VITALS (10 sets, daily range): BP systolic 105–126; BP diastolic 55–70; PULSE 59–85; RESP 12–18; TEMP 36.2–39; O2SAT 94–100; BMI 32.8; BMI 32.6; BMI 32.7
--- NOTE | 2018-12-15 09:46 | EKG12_ITS ---
Test Reason : FEVER Blood Pressure : / mmHG Vent. Rate : 070 BPM Atrial Rate : 070 BPM P-R Int : 162 ms QRS Dur : 104 ms QT Int : 416 ms P-R-T Axes : 085 -48 039 degrees QTc Int : 449 ms Normal sinus rhythm Pulmonary disease pattern Left anterior fascicular block Minimal voltage criteria for LVH, may be normal variant Abnormal ECG Confirmed by LUKASZ UMAÑA, ALEX ([id number]), news assignment editor NIC BASS ([id number]) on 12/21/2018 10:56:29 AM Referred By: DANYELL Confirmed By:CARLEE LAL MD
--- NOTE | 2018-12-15 09:47 | VDLE_ITS ---
Reason For Study: Swelling RIGHT LEFT GSV is normal. CFV is compressible, spontaneous, phasic, Acute deep vein thrombosis is noted in the competent, and demonstrates normal right CFV, FV, PopV, T/P Trunk, GastrocV, augmentation. PTV, PeroV, ATV. Right CFV, SFJ, and PopV are partially compressible with minimal flow noted. Procedure Exam performed portable in ED. A preliminary report was called and/or faxed to [facility]. Interpretation Summary Acute deep venous thrombosis right common femoral, femoral, popliteal, tibioperoneal trunk, gastrocnemius vein, posterior tibial, peroneal, and anterior tibial veins. Patent and compressible right great saphenous vein Patent and compressible left common femoral vein Ordering Physician: Fredrick Ash Referring Physician: MD Africa Tiburcio Performed By: Shakila Pearl RVT
--- NOTE | 2018-12-15 09:55 | RAD_ITS ---
STUDY: X-RAY CHEST REASON FOR EXAM: Male, 78 years old. Increasing falls. Fever. Patient is on chemotherapy. TECHNIQUE: Single AP portable view of the chest. COMPARISON: Comparison is made with prior examination of July 25, 2018. FINDINGS: EKG electrodes are seen. Mild residual increase linear markings at the left lung base suggestive of atelectasis and/or scarring. No acute abnormality is seen. There is no demonstrated pleural abnormality. Normal size heart. Normal mediastinum and merlin. Normal visualized pulmonary arteries. There is atherosclerotic tortuosity of the aortic arch and descending thoracic aorta. There are diffuse degenerative changes of the visualized thoracic spine. Stable deformity of the lateral aspect of the right clavicle. There is no demonstrated abnormality of the visualized soft tissue structures of the upper abdomen. RAD/Chest 1 View (Portable) IMPRESSION: Stable examination with mild increased markings at the left lung base suggestive of linear atelectasis and/or scarring. Electronically Signed: Yonathan Foy, at 10:25 EDT , Service support ,
--- NOTE | 2018-12-15 10:11 | ED.VIS.GEN ---
History of Present Illness Chief Complaint: Fever Detail of Chief Complaint: Weakness, falls and rigors Informant: Patient Onset: Days Context: Sudden Onset Timing: Intermittent, Waxes and wanes Quality: Fever, rigors, shortness of breath, frequency and rash Location: Varies Current Severity: Moderate Maximum Severity: Moderate Worsened by: Nothing Relieved by: Nothing Associated Symptoms: Frequent falls. Patient on floor for 45 minutes. Narrative: Patient is an elderly male with history of multiple myeloma who was seen by Dr. Harsh Terry. Patient presents because of fall with fever, rigors, skin lesions that are traumatic i.e. skin tear and swelling right lower extremity with erythema. Patient denies headache. He denies photophobia, neck pain or neck stiffness. Patient does report mild nasal congestion. He reports shortness of breath without cough. He does have increased shortness of breath with activity. He does report nausea without vomiting diarrhea. Denies black or maroon stool. He did denies hematuria or dysuria. He does report frequency. He denies testicular pain. He denies history of PE or DVT. Prior similar symptoms: No Recent Illness/Hospitalization: Yes - Past Medical History (1) History of hypertension Status: Acute (2) History of hypercholesterolemia Status: Acute (3) History of hypothyroidism Status: Acute (4) History of multiple myeloma Status: Acute Past Medical History - Allergies and Home Meds Allergies/Adverse Reactions: Allergies No Known Allergies Allergy (Verified 12/15/18 09:35) Primary Care Physician: Tiburcio Leger MD [Primary Care Provider] - Prior records reviewed: No Surgical History: noncontributory Lives: Alone Smoking Status: Former smoker Alcohol: None Drugs: None Review of Systems General: Reports: Chills, Fever, Malaise. Denies: Sweats Eyes: Denies: Visual changes - bilaterally, Blurred Vision - bilaterally, Diplopia ENT: Denies: Bilateral ear pain, Rhinorrhea, Sore throat Cardiovascular: Denies: Chest pain, Palpitations, Heart racing Respiratory: Reports: Dyspnea, Dyspnea on exertion. Denies: Cough, Sputum, Orthopnea, Paroxysmal nocturnal dyspnea Gastrointestinal: Reports: Nausea. Denies: Abdominal pain, Vomiting, Diarrhea, Constipation, Melena, Hematochezia, -, - Genitourinary: Reports: Frequency. Denies: Dysuria, Hematuria, -, - Musculoskeletal: Denies: Myalgias, Arthralgias, Neck pain, Back pain, Swelling, Extremity Pain, -, - Skin: Reports: Rash. Denies: Wounds Neurological: Reports: Weakness. Denies: Headache Psych: Denies: Depression, Anxiety Endocrine: Denies: Polyuria, Polydipsia Hematologic: Reports: Easy bruising. Denies: Easy bleeding Allergy: Denies: Uticaria, Swelling of the mouth Physical Exam Vital Signs/Narrative: Vital Signs Temp Pulse Resp BP Pulse Ox 12/15/18 09:31 100.0 F H 74 14 110/66 100 Inital Vital Signs reviewed: Yes General: Well nourished, Well developed, Acute Distress Head: Normocephalic, Atraumatic Eyes: Perrl, EOMI, Scleral icterus. Negative for: Pale conjunctiva ENT: No rhinorrhea, TM's clear. Negative for: Nasal congestion Neck: Supple, Nontender, No lymphadenopathy, No JVD Cardiovascular: Regular rate, Regular rhythm, No murmurs, Normal S1, Normal S2 Respiratory: No distress, CTA bilaterally, Chest nontender Abdomen: Soft, Nontender, Nondistended, Normal bowel sounds Rectal: Deferred Back: Nontender, Normal Inspection Extremities: Tenderness, Edema, - - There is significant erythema anterior medial right leg. There is slight erythema noted along the distribution of the greater saphenous vein and also on the lateral side. There is shotty lymphadenopathy noted. There is tenderness of the right calf.. Negative for: Nontender, No edema Skin: Normal color, No Trauma, Rash. Negative for: Cyanosis, Diaphoresis, Jaundice Neurological: Alert, Oriented x3, Cranial nerves II-XII grossly intact, Normal Strength, Normal Sensation Psychological: Normal affect Diagnostic/Tx/Re-eval Chest X-Ray - ED: 1 View, Read by ED Physician, Normal, Heart, Mediastinum, Bony Structures, No Acute Disease, Chronic Changes, - - Cora view portable chest x-ray reveals chronic changes no acute process. The film was compared to film dated July 25, 2018. Interpretation of single view x-ray by me at 1020 Impressions Chest X-Ray 12/15/18 09:55 IMPRESSION: Stable examination with mild increased markings at the left lung base suggestive of linear atelectasis and/or scarring. Electronically Signed: Yonathan Foy, at 10:25 EDT , Service support , 12/15/18 09:55 Chest 1 View (Portable) [RAD] Stat Laboratory Results 12/15/18 12/15/18 12/15/18 10:00 10:00 10:00 WBC 4.5 RBC 3.04 L Hgb 10.2 L Hct 31.5 L MCV 103.6 H MCH 33.6 H MCHC 32.4 RDW Std Deviation 61.9 H RDW Coeff of Chery 16.2 H Plt Count 111 L MPV 11.6 Immature Gran % (Auto) 1.100 H Neut % (Auto) 71.6 H Lymph % (Auto) 10.4 L [place] % (Auto) 15.6 H Eos % (Auto) 0.9 Baso % (Auto) 0.4 Absolute Neuts (auto) 3.3 Absolute Lymphs (auto) 0.47 L Nucleated RBC % 0 Differential Comment COMMENT PT 20.6 H INR 1.8 APTT 38.8 H Sodium 139 Potassium 4.1 Chloride 110 H Carbon Dioxide 21.0 Anion Gap 8 BUN 16 Creatinine 0.83 Estim Creat Clear Calc 73.29 Est GFR (MDRD) Af Amer 114 Est GFR (MDRD) Non-Af 94 BUN/Creatinine Ratio 19.2 Glucose 115 H Lactic Acid Calcium 8.0 L Total Bilirubin 2.10 H AST 14 L ALT 18 Alkaline Phosphatase 55 Total Protein 5.1 L Albumin 2.3 L Globulin 2.8 Albumin/Globulin Ratio 0.8 L 12/15/18 10:00 WBC RBC Hgb Hct MCV MCH MCHC RDW Std Deviation RDW Coeff of Chery Plt Count MPV Immature Gran % (Auto) Neut % (Auto) Lymph % (Auto) [place] % (Auto) Eos % (Auto) Baso % (Auto) Absolute Neuts (auto) Absolute Lymphs (auto) Nucleated RBC % Differential Comment PT INR APTT Sodium Potassium Chloride Carbon Dioxide Anion Gap BUN Creatinine Estim Creat Clear Calc Est GFR (MDRD) Af Amer Est GFR (MDRD) Non-Af BUN/Creatinine Ratio Glucose Lactic Acid 2.0 Calcium Total Bilirubin AST ALT Alkaline Phosphatase Total Protein Albumin Globulin Albumin/Globulin Ratio CBC reveals mild anemia. INR is subtherapeutic at 1.8. Lactate is 2.0. Comprehensive metabolic panel is unremarkable. Venous duplex study reveals an extensive DVT of the right lower extremity. With patient having frequent falls hypotension at the physician's office and hypotensive readings in the emergency department will contact hospitalist for observation status and physical therapy. Concern that patient may have significant bleed once therapeutic if he continues to fall. - EKG Initial EKG Interpretation: Sinus Rhythm - Sinus rhythm with a ventricular rate of 70. VT interval is 160 ms. QRS durations 104 ms which is prolonged. QT interval is 416 ms. [place] to the left. There is evidence of left anterior fascicular block. There is artifact secondary to patient's rigors. - Medical Decision Making History of multiple myeloma swollen painful leg need to evaluate for DVT. Clinically concern patient has cellulitis. Sepsis work-up was undertaken. Since she is complaining of dyspnea with fever will obtain chest x-ray to evaluate for pneumonia. Since he is complaining of frequency will obtain UA as well as place a [place] for accurate I's and O's to assess for UTI and hydration status. Venous duplex study was ordered. Spoke with Dr. Roberts covering for Dr. Harsh Terry to inform him patient will be admitted since he reports he is to start chemotherapy next week. Did receive fluid bolus for his hypotension. Since he was hypotensive at physician's office he has been hypotensive here requiring fluid bolus page was placed to the hospitalist for admission. Patient will be admitted to PCU. - Critical Care Time Critical care time (excluding procedures): 30-74 minutes, Discussing w/Patient &/or Family/Coke Drawer, Discussing w/Consultants, Arranging Admission or Transfer ED Disposition - Plan for ED Patient: Disposition: Acute Care Hospital [facility] Diagnosis: Hypotension, Deep vein thrombosis (DVT) of right lower extremity, Frequent falls, Skin tear of elbow without complication, Multiple contusions Referrals: Tiburcio Leger MD [Primary Care Provider] -
[2018-12-15] MEDS: Acetaminophen 325 MG Tablet 650 MG PO ×2 (10:13→21:28)
[2018-12-15 10:18] LABS: Absolute Lymphocyte Count 0.47 X10^3/uL (0.83-4.51); Absolute Neutrophil Count 3.3 X10^3/uL (2.0-7.7); Basophil# 0.02 X10^3/uL; Basophil% 0.4 % (0-1); Eosinophil# 0.04 X10^3/uL; Eosinophils% 0.9 % (0-5); Hematocrit 31.5 % (40-54); Hemoglobin 10.2 g/dL (13.0-16.5); Lymphocyte # 0.47 X10^3/ul (4.0); Lymphocyte % 10.4 % (19-41); Mean Corp Hgb Conc 32.4 g/dL (32-36); Mean Corpuscular Hgb 33.6 pg (27.0-32.0); Mean Corpuscular Volume 103.6 fL (80-94); Mean Platelet Vol. 11.6 fl (6.2-12.0); Monocyte# 0.71 X10^3/uL; Monocyte% 15.6 % (0-10); NRBC Flagged by Analyzer 0 % (0-5); Neutrophil # 3.25 X10^3/uL (2.7-7.7); Neutrophil % 71.6 % (47-70); POSITIVE DIFFERENTIAL YES; POSITIVE MORPHOLOGY YES; Platelet Count 111 K/mm3 (150-450); RBC Distribution Width CV 16.2 % (11.6-14.6); RBC Distribution Width SD 61.9 fl (35.1-43.9); Red Blood Count 3.04 M/mm3 (4.6-6.2); White Blood Count 4.5 K/mm3 (4.4-11.0)
[2018-12-15 10:23] LABS: Differential Indicated SCAN CRITERIA MET
[2018-12-15 10:26] LABS: International Normalized Ratio 1.8; Partial Thromboplast Time 38.8 Seconds (24.1-36.2); Prothrombin Time (Protime)PT. 20.6 SECONDS (11.7-14.9)
[2018-12-15 10:36] LABS: ALB/GLOB Ratio 0.8 RATIO (0.9-2.4); AST(SGOT) 14 U/L (15-37); Alanine Aminotransfer ALT/SGPT 18 U/L (16-61); Albumin, Serum 2.3 g/dL (3.2-5.0); Alkaline Phosphatase 55 U/L (45-117); Anion Gap 8 (5-15); BUN 16 mg/dL (7-18); BUN/Creat Ratio 19.2 RATIO (10-20); Chloride 110 mmol/L (98-107); Creatinine, Serum 0.83 mg/dL (0.70-1.30); EST Glomerular Filtration Rate 94 mL/min (>60); Est Glom Filt Rate - Afr Amer 114 mL/min (>60); Estimated Creatinine Clearance 73.29 ml/min; Globulin 2.8 g/dL (2.2-4.2); Glucose 115 mg/dL (74-106); Potassium 4.1 mmol/L (3.5-5.1); Protein, Total 5.1 g/dL (6.4-8.2); Sodium Level 139 mmol/L (136-145)
--- NOTE | 2018-12-15 10:44 | ED.RN ---
LAB CALLED LACTIC 2.0. TEOFILO LARES AWARE. DR MCKEON AWARE
[2018-12-15] MEDS: 0.9% Normal Saline 1,000 ML 250 ML IV (11:11)
[2018-12-15 11:36] LABS: Mucous, Urine 0 SEEN /hpf (<or=2+)
[2018-12-15 11:39] LABS: Color, Urine Yellow (Yellow); Glucose, Dipstick Normal (Normal); Ketone-Dipstick 5 mg/dl (Negative); Leukocyte Esterase-Dipstick 25 /ul (Negative); Nitrite-Dipstick Negative (Negative); Occult Blood-Urine 25 /ul (Negative); Protein-Dipstick 30 mg/dl (Negative); Urine Bilirubin Dipstick Negative (Negative); Urine Clarity Sl. Cloudy (Clear); Urine Urobilinogen 8 mg/dl (Normal)
[2018-12-15 11:47] LABS: Bacteria 4+ /hpf (None Seen); Red Blood Cells-Urine 0-5 SEEN /hpf (0-5); Squamous Epithelial Cells - UA 0-5 SEEN /hpf (0-5); White Blood Cells 0-5 SEEN /hpf (0-5)
--- NOTE | 2018-12-15 11:59 | HP.PCM_ITS ---
Problem List (1) Multiple myeloma Status: Chronic (2) Hypothyroidism Status: Chronic (3) Paroxysmal atrial fibrillation Status: Chronic (4) Hyperlipidemia Status: Chronic (5) Hypertension Status: Chronic (6) Deep vein thrombosis (DVT) of right lower extremity Status: Acute (7) Frequent falls Status: Acute (8) Skin tear of elbow without complication Status: Acute History of Present Illness Date of Admission: 12/15/18 Chief Complaint: Weakness. The patient is a 78 year old M with past medical history as mentioned above presented to the emergency room because of weakness. His illness started over the last week and his main complaint was weakness, generalized, has been having difficulty ambulating around his house found yesterday, he fell and he could not get up. Today, he was weak and was not able to get out of bed. He denied any other specific symptoms but he reported history of fever 5 days ago which was 100.6 Fahrenheit at home. He complains of sinus headache as well and mild cough. He denied sputum production, shortness of breath, chest pain, palpitation. He denied abdominal pain, nausea vomiting. He did mention that his urine output is decreasing and his urine has been dark. He had a story of multiple myeloma, has been on Revlimid and following up with Dr. Terry as outpatient. He has history of paroxysmal atrial fibrillation, has been on amiodarone Toprol for rate control as well as Coumadin for anticoagulation. He has a history of hypothyroidism and he has been on levothyroxine. In the emergency department, his blood pressure was borderline, had a low-grade fever of 100 Fahrenheit, other vital signs are stable. Routine blood work was remarkable for chronic anemia and chronic thrombocytopenia which are likely because of Revlimid. BMP was unremarkable. INR was 1.8. LFT revealed elevated bilirubin, liver transaminases and alkaline phosphatase are normal. Lactic acid was normal. Urinalysis revealed cloudy urine, negative for nitrite, there was only 25 leukocyte esterase, 0-5 WBCs and 4+ bacteria. Chest x-ray showed no acute infiltrate or consolidation. EKG revealed sinus rhythm, rate is controlled, no acute changes. He is being admitted for acute extensive DVT of the right lower extremity, frequent falls, debility and dehydration. Past Medical History Past Medical History (Chronic Problems): Chronic Problems (Last Updated 07/25/18 @ 11:53 by Rosanne Álvarez) Multiple myeloma (Chronic) Hypothyroidism (Chronic) Paroxysmal atrial fibrillation (Chronic) Hyperlipidemia (Chronic) Hypertension (Chronic) Medical History: Medical History (Last Updated 07/25/18 @ 11:53 by Rosanne Álvarez) Cancer C80.1 Knee pain M25.569 Hypertension I10 Allergies No Known Allergies Allergy (Verified 12/15/18 09:35) Home Medications: Ambulatory Orders Medication Instructions Recorded Amiodarone HCl 200 mg PO DAILY 11/02/13 Atorvastatin Calcium [Lipitor] 10 mg PO QHS 11/02/13 Warfarin Sodium [Coumadin] 6 mg PO MOFR 11/02/13 Dexamethasone [Decadron] 8 mg PO UD 07/15/16 Docusate Sodium [Colace] 100 mg PO DAILY 07/15/16 Lenalidomide [Revlimid] 15 mg PO DAILY 07/15/16 Metoprolol Tartrate [Lopressor 12.5 mg PO DAILY 07/15/16 (Beta Tino)] Warfarin [Coumadin ([facility])] 3 mg PO SUTUWETHSA 07/15/16 Albuterol IH (ProAir) [Proair Hfa 1 puff INHALATION Q4H PRN PRN #1 07/25/18 (SP)Vent Pts] inhaler levoFLOXacin IV [Levaquin] 750 mg IV Q24 #5 bag 07/25/18 levoFLOXacin tablet [Levaquin 500 mg PO DAILY #5 tab 07/25/18 tablet] levothyroxine 50 mcg tablet 50 mcg PO DAILY #90 tab 11/07/18 Surgical History: total knee arthroplasty Psychiatric History: No pertinent psych hx Lives: Spouse/ Significant Other Smoking Status: Former smoker Alcohol: None Drugs: None - *Family History Maternal Family History: Family History (Last Updated 07/25/18 @ 11:53 by Rosanne Álvarez) Other Heart disease History Items: No pertinent history Paternal Family History: Family History (Last Updated 07/25/18 @ 11:53 by Rosanne Álvarez) Other Heart disease History Items: No pertinent history Review of Systems Constitutional: Reports: Anorexia, Fever, Weakness, Fatigue. Denies: Chills Eyes: Denies: Blurred vision, Double vision, Drainage, Redness HEENT: Reports: Hearing Changes. Denies: Difficulty Hearing, Ear Pain, Eye Pain, Nasal Congestion, Sore Throat Cardiovascular: Reports: Edema. Denies: Chest Pain, Chest Pressure, Chest Tightness, Heaviness, Light Headedness, Orthopnea, Syncope Respiratory: Reports: Cough. Denies: Pleuritic Pain, Shortness of Breath, Shortness of breath upon exertion, Sputum production, Wheezing Gastrointestinal: Reports: Constipation. Denies: Abdominal Pain, Diarrhea, Nausea, Vomiting Genitourinary: Denies: Dysuria, Frequency, Hematuria Musculoskeletal: Denies: Arm Pain, Back Pain, Foot Pain Skin: Denies: Dryness, Jaundice Neurological: Denies: Balance problems, Double vision, Change in Speech, Slurred speech, Confusion, Headaches, Numbness Psychiatric: Denies: Anxiety, Depression Endocrine: Denies: Change in Body Habitus, Polydipsia, Polyuria VTE Information - Inpt Only VTE Present on Admission: No VTE Mechan Device Prophylaxis: None VTE Pharm Prophylaxis ordered?: No Patient Problems: Active and Suspected Problems (Last Updated 07/25/18 @ 11:53 by Rosanne Álvarez) Deep vein thrombosis (DVT) of right lower extremity (Acute) Frequent falls (Acute) Skin tear of elbow without complication (Acute) - Physical Exam General: Alert, Oriented x3, Cooperative, No apparent distress HEENT: Atraumatic, PERRLA, EOMI, Normocephalic Oral: Moist Mucosa, No Gingival or Mucosal Lesions/ Ulcerations Neck: Supple, No JVD, Negative Carotid Bruits, Trachea Midline, Thyroid Normal Size and Texture Lungs: Clear to auscultation, Normal air movement, No rhonchi, No wheeze, No rales, Diminished Cardiovascular: Regular rate, Regular Rhythm, Normal S1, Normal S2, PMI Normal Abdomen: Bowel Sounds Present, Soft, Non Tender, Non-Distended, No Hepato- splenomegaly, Obese Extremities: No clubbing, No cyanosis, Edema, - - Multiple old and new bruises/ecchymosis on both legs. Skin: No rashes, Ulcer/ Wound, - - Skin abrasion on the left elbow. Lymphatic: No Cervical, Supraclavicular, or Inguinal Adenopathy Neurological: Cranial nerves II-XII grossly intact, Motor Exam 5/5 strength throughout Psych/Mental Status: Normal Affect, Appropriate, Alert and oriented to time, place, person, mood and affect Vital Signs Temp Pulse Resp BP Pulse Ox 99.0 F 64 13 106/64 99 12/15/18 11:13 12/15/18 11:13 12/15/18 11:13 12/15/18 11:13 12/15/18 11:13 Oxygen Delivery Method Room Air Weight: 229 lb 4.492 oz Body Mass Index (BMI) 32.8 Laboratory Tests Past 24 Hrs 12/15/18 12/15/18 12/15/18 10:00 10:00 10:00 WBC 4.5 RBC 3.04 L Hgb 10.2 L Hct 31.5 L MCV 103.6 H MCH 33.6 H MCHC 32.4 RDW Std Deviation 61.9 H RDW Coeff of Chery 16.2 H Plt Count 111 L MPV 11.6 Immature Gran % (Auto) 1.100 H Neut % (Auto) 71.6 H Lymph % (Auto) 10.4 L [place] % (Auto) 15.6 H Eos % (Auto) 0.9 Baso % (Auto) 0.4 Absolute Neuts (auto) 3.3 Absolute Lymphs (auto) 0.47 L Nucleated RBC % 0 Differential Comment COMMENT PT 20.6 H INR 1.8 APTT 38.8 H Sodium 139 Potassium 4.1 Chloride 110 H Carbon Dioxide 21.0 Anion Gap 8 BUN 16 Creatinine 0.83 Estim Creat Clear Calc 73.29 Est GFR (MDRD) Af Amer 114 Est GFR (MDRD) Non-Af 94 BUN/Creatinine Ratio 19.2 Glucose 115 H Lactic Acid Calcium 8.0 L Total Bilirubin 2.10 H AST 14 L ALT 18 Alkaline Phosphatase 55 Total Protein 5.1 L Albumin 2.3 L Globulin 2.8 Albumin/Globulin Ratio 0.8 L Urine Color Urine Clarity Urine pH Ur Specific [place] Urine Protein Urine Glucose (UA) Urine Ketones Urine Occult Blood Urine Nitrite Urine Bilirubin Urine Urobilinogen Ur Leukocyte Esterase Urine RBC Urine WBC Ur Squamous Epith Cells Urine Bacteria Urine Mucus 12/15/18 12/15/18 10:00 11:15 WBC RBC Hgb Hct MCV MCH MCHC RDW Std Deviation RDW Coeff of Chery Plt Count MPV Immature Gran % (Auto) Neut % (Auto) Lymph % (Auto) [place] % (Auto) Eos % (Auto) Baso % (Auto) Absolute Neuts (auto) Absolute Lymphs (auto) Nucleated RBC % Differential Comment PT INR APTT Sodium Potassium Chloride Carbon Dioxide Anion Gap BUN Creatinine Estim Creat Clear Calc Est GFR (MDRD) Af Amer Est GFR (MDRD) Non-Af BUN/Creatinine Ratio Glucose Lactic Acid 2.0 Calcium Total Bilirubin AST ALT Alkaline Phosphatase Total Protein Albumin Globulin Albumin/Globulin Ratio Urine Color Yellow Urine Clarity Sl. Cloudy Urine pH 7.0 Ur Specific [place] 1.010 Urine Protein 30 H Urine Glucose (UA) Normal Urine Ketones 5 H Urine Occult Blood 25 H Urine Nitrite Negative Urine Bilirubin Negative Urine Urobilinogen 8 H Ur Leukocyte Esterase 25 H Urine RBC 0-5 SEEN Urine WBC 0-5 SEEN Ur Squamous Epith Cells 0-5 SEEN Urine Bacteria 4+ Urine Mucus 0 SEEN Clinical Impression(s) from Imaging Studies Chest X-Ray 12/15/18 09:55 IMPRESSION: Stable examination with mild increased markings at the left lung base suggestive of linear atelectasis and/or scarring. Electronically Signed: Yonathan Law, at 10:25 EDT , Service support , Assessment/Plan All Active Problems (Last Updated 07/25/18 @ 11:53 by Rosanne Álvarez) Deep vein thrombosis (DVT) of right lower extremity (Acute) Frequent falls (Acute) Skin tear of elbow without complication (Acute) This is an 78 years old male patient presented to the emergency room because of weakness, frequent falls and difficulty ambulating, found to have extensive acute DVT of the right lower extremity, blood pressure was borderline, despite of low-grade fever without obvious source of infection and also is being admitted for physical debility and functional decline. 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 Patient has been on Coumadin for ablation but INR is therapeutic at 1.8. DVT involving right common femoral vein, femoral vein, popliteal vein, peroneal and gastrocnemius veins. Blood pressure is borderline, no tachycardia. Plan: Admit to PCU, cardiac monitoring, IV fluids, start therapeutic Lovenox twice daily, Tylenol PRN, antiemetics as needed, continue Coumadin, repeat INR tomorrow morning, PT OT evaluation and treatment. #2 dehydration: Clinically patient is dehydrated, very dark urine. Reported poor appetite. Plan: IV fluids, input output chart, encourage oral intake. Kidney function is normal. #3 frequent falls/physical debility/functional decline: With multiple skin bruises and ecchymosis, abrasion of the left elbow. Plan: Check TSH, PT OT evaluation and treatment, patient may need placement to alf facility. #4 paroxysmal atrial fibrillation: Rate is controlled, INR is 1.8. Plan to continue amiodarone and metoprolol for rate control, continue Coumadin, start Lovenox as above. #5 hypothyroidism: Check TSH, continue levothyroxine. #6 hypertension: Blood pressure is borderline at this time, will hold metoprolol, IV fluids, orthostatic vitals normal. #7 multiple myeloma: Currently on Revlimid. Plan to follow-up with oncology as outpatient. #8 hyperlipidemia: Continue statins. #9 DVT prophylaxis: INR is 1.8, patient will be on Lovenox twice daily. This note was generated with [employer] dictation software. It may contain incorrect words, spelling, and punctuation that were not noted in checking the note before signing. Code Visit Inpatient E&M: 09506 Init Hosp L3
[2018-12-15] MEDS: 0.9% Normal Saline 1,000 ML 100 ML IV ×2 (13:05→22:21)
[2018-12-15] MEDS: Enoxaparin 100 MG/ML Syringe SC ×2 (13:56→21:33)
[2018-12-15 14:10] LABS: Reflex Lactate? Y
--- NOTE | 2018-12-15 14:41 | NURSING ---
wound photo: left elbow
--- NOTE | 2018-12-15 14:42 | NURSING ---
wound photo: right posterior thigh
[2018-12-15 14:59] LABS: Lactic Acid 1.7 mmol/L (0.4-2.0)
[2018-12-16] VITALS (14 sets, daily range): BP systolic 92–120; BP diastolic 53–70; PULSE 54–96; RESP 12–18; TEMP 36.7–38.4; O2SAT 97–99
[2018-12-16 06:40] LABS: Prothrombin Time (Protime)PT. 22.7 SECONDS (11.7-14.9)
--- NOTE | 2018-12-16 07:58 | PN_ITS ---
Patient Problems: Active and Suspected Problems (Last Updated 07/25/18 @ 11:53 by Rosanne Álvarez) Deep vein thrombosis (DVT) of right lower extremity (Acute) Frequent falls (Acute) Skin tear of elbow without complication (Acute) Subjective: Chief complaint: Follow-up after admission for extensive right lower extremity DVT, frequent falls, debility and overnight, he developed gram-negative bacteremia. Patient seen and examined. No acute events overnight. He denies any specific complaints apart from generalized weakness. He still having spikes of fever, maximum temperature overnight was 101.3. Blood pressure and heart rate are maintained, pulse ox is 98% on room air. - Physical Exam General: Alert, Oriented x3, Cooperative, No apparent distress HEENT: Atraumatic, PERRLA, EOMI, Normocephalic Oral: Moist Mucosa, No Gingival or Mucosal Lesions/ Ulcerations Neck: Supple, No JVD, Negative Carotid Bruits, Trachea Midline, Thyroid Normal Size and Texture Lungs: Clear to auscultation, Normal air movement, No rhonchi, No wheeze, No rales, Diminished Cardiovascular: Regular rate, Regular Rhythm, Normal S1, Normal S2 Abdomen: Bowel Sounds Present, Soft, Non Tender, Non-Distended, No Hepato- splenomegaly, Obese Extremities: No clubbing, No cyanosis, Edema - ++ Edema. Ecchymosis, bruises. Skin: No rashes, - - Left elbow abrasion. Lymphatic: No Cervical, Supraclavicular, or Inguinal Adenopathy Neurological: Cranial nerves II-XII grossly intact, Motor Exam 5/5 strength throughout Psych/Mental Status: Normal Affect, Appropriate, Alert and oriented to time, place, person, mood and affect Vital Signs Temp Pulse Resp BP Pulse Ox 98.1 F 65 18 120/62 98 12/16/18 03:20 12/16/18 07:33 12/16/18 03:20 12/16/18 05:42 12/16/18 07:10 Oxygen Delivery Method Room Air Weight: 221 lb 1.978 oz Body Mass Index (BMI) 32.6 Orthostatic Vital Signs Start: 12/15/18 21:59 Freq: 0600 Status: Active Protocol: Activity Type Activity Date Activity User E-Sign Co-Sign Detail Recorded Client Recorded Date Recorded By Document 12/16/18 05:42 SLY [id number] 12/16/18 05:50 [facility] 12/16/18 05:42 Orthostatic Vitals Standing -Blood Pressure (90/60-120/80) 118/70 -Extremity Use Right Arm -Pulse Rate (60-100) 89 Sitting -Blood Pressure (90/60-120/80) 110/60 -Extremity Use Right Arm -Pulse Rate (60-100) 76 Lying -Blood Pressure (90/60-120/80) 120/62 -Extremity Use Right Arm -Pulse Rate (60-100) 74 Intake and Output for Last 24 Hours 12/14/18 12/15/18 12/16/18 23:59 23:59 23:59 Intake Total 1515.00 / 1515.00 55 / 55 Output Total 475 / 475 200 / 200 Balance 1040.00 / 1040.00 -145 / -145 Microbiology Past 72 Hours 12/15/18 15:30 Respiratory Panel (PCR) - Final Mucosa - Nasopharyngeal 12/15/18 10:28 Blood Culture - Preliminary Blood Culture (Wb) - Right Hand 12/15/18 10:00 Blood Culture - Preliminary Blood Culture (Wb) - Anticubital Right Laboratory Tests Past 24 Hrs 12/15/18 12/15/18 12/15/18 10:00 10:00 10:00 WBC 4.5 RBC 3.04 L Hgb 10.2 L Hct 31.5 L MCV 103.6 H MCH 33.6 H MCHC 32.4 RDW Std Deviation 61.9 H RDW Coeff of Chery 16.2 H Plt Count 111 L MPV 11.6 Immature Gran % (Auto) 1.100 H Neut % (Auto) 71.6 H Lymph % (Auto) 10.4 L [place] % (Auto) 15.6 H Eos % (Auto) 0.9 Baso % (Auto) 0.4 Absolute Neuts (auto) 3.3 Absolute Lymphs (auto) 0.47 L Nucleated RBC % 0 Differential Comment COMMENT PT 20.6 H INR 1.8 APTT 38.8 H Sodium 139 Potassium 4.1 Chloride 110 H Carbon Dioxide 21.0 Anion Gap 8 BUN 16 Creatinine 0.83 Estim Creat Clear Calc 73.29 Est GFR (MDRD) Af Amer 114 Est GFR (MDRD) Non-Af 94 BUN/Creatinine Ratio 19.2 Glucose 115 H Lactic Acid Calcium 8.0 L Total Bilirubin 2.10 H AST 14 L ALT 18 Alkaline Phosphatase 55 Total Protein 5.1 L Albumin 2.3 L Globulin 2.8 Albumin/Globulin Ratio 0.8 L TSH Urine Color Urine Clarity Urine pH Ur Specific [place] Urine Protein Urine Glucose (UA) Urine Ketones Urine Occult Blood Urine Nitrite Urine Bilirubin Urine Urobilinogen Ur Leukocyte Esterase Urine RBC Urine WBC Ur Squamous Epith Cells Urine Bacteria Urine Mucus 12/15/18 12/15/18 12/15/18 10:00 10:00 11:15 WBC RBC Hgb Hct MCV MCH MCHC RDW Std Deviation RDW Coeff of Chery Plt Count MPV Immature Gran % (Auto) Neut % (Auto) Lymph % (Auto) [place] % (Auto) Eos % (Auto) Baso % (Auto) Absolute Neuts (auto) Absolute Lymphs (auto) Nucleated RBC % Differential Comment PT INR APTT Sodium Potassium Chloride Carbon Dioxide Anion Gap BUN Creatinine Estim Creat Clear Calc Est GFR (MDRD) Af Amer Est GFR (MDRD) Non-Af BUN/Creatinine Ratio Glucose Lactic Acid 2.0 Calcium Total Bilirubin AST ALT Alkaline Phosphatase Total Protein Albumin Globulin Albumin/Globulin Ratio TSH 2.70 Urine Color Yellow Urine Clarity Sl. Cloudy Urine pH 7.0 Ur Specific [place] 1.010 Urine Protein 30 H Urine Glucose (UA) Normal Urine Ketones 5 H Urine Occult Blood 25 H Urine Nitrite Negative Urine Bilirubin Negative Urine Urobilinogen 8 H Ur Leukocyte Esterase 25 H Urine RBC 0-5 SEEN Urine WBC 0-5 SEEN Ur Squamous Epith Cells 0-5 SEEN Urine Bacteria 4+ Urine Mucus 0 SEEN 12/15/18 12/16/18 14:26 06:13 WBC RBC Hgb Hct MCV MCH MCHC RDW Std Deviation RDW Coeff of Chery Plt Count MPV Immature Gran % (Auto) Neut % (Auto) Lymph % (Auto) [place] % (Auto) Eos % (Auto) Baso % (Auto) Absolute Neuts (auto) Absolute Lymphs (auto) Nucleated RBC % Differential Comment PT 22.7 H INR 2.0 APTT Sodium Potassium Chloride Carbon Dioxide Anion Gap BUN Creatinine Estim Creat Clear Calc Est GFR (MDRD) Af Amer Est GFR (MDRD) Non-Af BUN/Creatinine Ratio Glucose Lactic Acid 1.7 Calcium Total Bilirubin AST ALT Alkaline Phosphatase Total Protein Albumin Globulin Albumin/Globulin Ratio TSH Urine Color Urine Clarity Urine pH Ur Specific [place] Urine Protein Urine Glucose (UA) Urine Ketones Urine Occult Blood Urine Nitrite Urine Bilirubin Urine Urobilinogen Ur Leukocyte Esterase Urine RBC Urine WBC Ur Squamous Epith Cells Urine Bacteria Urine Mucus Microbiology 12/15/18 15:30 Mucosa - Nasopharyngeal Respiratory Panel (PCR) - Final 12/15/18 10:28 Blood Culture (Wb) - Right Hand Blood Culture - Preliminary 12/15/18 10:00 Blood Culture (Wb) - Anticubital Right Blood Culture - Preliminary Medical Necessity - Tobacco Use Smoking Status: Former smoker Assessment/Plan All Active Problems (Last Updated 07/25/18 @ 11:53 by Rosanne Álvarez) Deep vein thrombosis (DVT) of right lower extremity (Acute) Frequent falls (Acute) Skin tear of elbow without complication (Acute) This is an 78 years old male patient presented to the emergency room because of weakness, frequent falls and difficulty ambulating, found to have extensive acute DVT of the right lower extremity, and overnight he was found to have gram- negative bacteremia. #1 acute right lower extremity DVT: Probably due to his malignancy, multiple myeloma. He is on therapeutic Lovenox twice daily in addition to Coumadin. On admission, INR was attributed at 1.8, today INR is 2. Today, patient mentioned that he would like to start on a blood thinner that his takes which is Eliquis. Patient supposed to follow-up with cardiology, Dr. Reddy, for his chronic atrial fibrillation. Plan: DC subcu Lovenox since INR is 2, discussed with cardiology if he can start Eliquis and discontinue Coumadin repeat CBC and BMP tomorrow morning as well as INR. #2 probable acute cystitis: Today, patient mentioned that he has been having bad smelling urine over the last several days along with low-grade fever. Urinalysis reviewed on admission and revealed 4+ bacteria, 0-5 WBCs and negative nitrite. Blood culture revealed gram-negative rods. Started on IV Zosyn overnight. Plan to continue IV Zosyn, monitor blood and urine cultures. #3 gram-negative bacteremia: Probable source is the urine. Patient does have multiple abrasions it is unlikely to be the source of infection. Patient started on IV Zosyn overnight. He still having spikes of fever, no leukocyt osis. Plan to continue IV antibiotics, monitor blood culture. #4 dehydration: On IV fluids. Kidney function is normal. Patient is clinically dehydrated. Urine still dark. Plan to continue IV fluids for now. #5 frequent falls/physical debility/functional decline: With multiple skin bruises and ecchymosis, abrasion of the left elbow. TSH was normal. Plan for PT OT evaluation and treatment, patient may need placement to group home facility. #6 paroxysmal atrial fibrillation: Rate is controlled, INR is 2. Continue amiodarone for rate control, hold Coumadin for now until we decide if patient can go on Eliquis. #7 hypothyroidism: TSH was normal, continue levothyroxine. #8 hypertension: Blood pressure stabilized. Orthostatic vitals were normal. Patient is not taking any antihypertensive medications at home. #9 multiple myeloma: Has been on Revlimid. Plan to follow-up with oncology as outpatient. #10 hyperlipidemia: Continue statins. #11 DVT prophylaxis: INR is 2. This note was generated with [employer] dictation software. It may contain incorrect words, spelling, and punctuation that were not noted in checking the note before signing. Code Visit Inpatient E&M: 18533 Subs Hosp L3
[2018-12-16] MEDS: Levothyroxine 50 MCG Tablet PO (09:32)
[2018-12-16] MEDS: Amiodarone 200 MG Tablet PO (09:35)
--- NOTE | 2018-12-16 10:27 | CASEMGMT ---
Assessment- SW completed assessment with patient. Living situation- Patient lives with his in a 1 story home with 1 entry step. PCP: Dr Leger Specialists: Dr Terry-Oncology, Dr Maki- Pain Management [facility]: cane, walker, shower chair, and raised toilet seat ADL's/IADL's: Patient is normally independent. He manages his own meds, drives, and bathes on his own. He and his share cooking and cleaning duties. However, lately he has been using the walker and cane. Past SNF/rehab: none Past HH: none LW: no POA: no Plan: Patient plans on returning home at discharge. He feels they have plenty of help between their neighbors and gnosticist members. LIANG and RN CM will follow as patient's had expressed concern with managing patient at home. Audrey SIFUENTES MSW
--- NOTE | 2018-12-16 11:23 | CASEMGMT ---
LUDA BABCOCK NOTE: Pt interested in switching from Coumadin to Eliquis. To room to talk with pt. Introduced self and role of LUDA BABCOCK. Pt states his is on Eliquis and the co-pay is approx $300. Pt states this is affordable for him to pay. Pt made aware it is not certain yet if he will be switched to Eliquis, but if he is, that he can use Eliquis savings card for 30-days. Given Eliquis savings card and instructed pt on use. Pt instructed, if in the future, the co-pay becomes unaffordable, to discuss concerns with MD. Pt voices understanding. Keyla CIFUENTES RN, CM
[2018-12-16] MEDS: Acetaminophen 325 MG Tablet 650 MG PO (12:28)
--- NOTE | 2018-12-16 14:38 | CASEMGMT ---
Addendum entered by Audrey Vasquez 12/16/18 15:05: SW received a call from Becca with Dr Terry's office. She said Dr Terry is on vacation so she cannot clarify with him whether or not he would postpone treatment while in a SNF. She would pass along this information to Dr Roberts. Plan: It is recommended that patient go to a SNF. However, he does not want to go. He is supposed to talk with his about it. While patient was in the ED his expressed concern about being able to care for him. There is also the issue of chemo. Most nursing homes are not willing to take patient's that are getting chemo due to cost and transportation. Dr Terry is on vacation till . so SW does not know if he would postpone treatment if patient went to a SNF. RN CM and/or SW will follow up with patient tomorrow. Audrey LENTZW SPINNING MACHINE OPERATOR Addendum entered by Audrey Vasquez 12/16/18 14:43: A possible issue with patient going to SNF is his cancer treatment. SW has a call out to Dr Terry's office to see what the plan is for treatment and if it would continue right away if he went to a SNF. Audrey SIFUENTES SPINNING MACHINE OPERATOR Original Note: SW spoke with therapy and patient is weak. He would benefit from going to a SNF, but he is not in agreement. SW met with patient. SW told him that therapy feels he should go somewhere for therapy as he is really weak and he has been falling. He said he wants to go home. SW asked him if he has spoken to his about a plan. He said he has not. SW asked if SW could call her and talk about a plan. He said no and that he would talk with her. SW told him if he goes home with home health he has to be homebound. LIANG explained this means he can go to 's appts and mosque, but not the store, out to eat etc. He said he is fine with that. SW told him to talk with his and a SW marriage and family social worker CM will check in with him tomorrow. SW updated the RN CM as well. Plan: undetermined. Patient is supposed to talk with his about a plan. He should go to a SNF, but he does not want to. Audrey SIFUENTES SPINNING MACHINE OPERATOR
--- NOTE | 2018-12-16 15:23 | CASEMGMT ---
LIANG received another call from Phylicia at Dr Terry's office. Dr Roberts said they would definitely hold treatment if patient went to a long-term. She will talk with Dr Terry on Wednesday and let him know this information. Plan: LIANG/LUDA CM to follow up tomorrow regarding plan. Audrey SIFUENTES MSW
[2018-12-16] MEDS: 0.9% Saline Lock 10 ML Syringe IV (22:14)
[2018-12-16] MEDS: Atorvastatin Calcium 10 MG Tablet PO (22:14)
[2018-12-17] VITALS (11 sets, daily range): BP systolic 99–110; BP diastolic 45–63; PULSE 66–82; RESP 16–18; TEMP 36.5–37.7; O2SAT 95–98
[2018-12-17] MEDS: 0.9% Saline Lock 10 ML Syringe IV ×2 (05:34→05:36)
[2018-12-17] MEDS: Levothyroxine 50 MCG Tablet PO (05:34)
[2018-12-17 06:38] LABS: Absolute Lymphocyte Count 0.51 X10^3/uL (0.83-4.51); Absolute Neutrophil Count 2.3 X10^3/uL (2.0-7.7); Basophil# 0.02 X10^3/uL; Basophil% 0.5 % (0-1); Eosinophil# 0.44 X10^3/uL; Eosinophils% 11.7 % (0-5); Hematocrit 29.4 % (40-54); Hemoglobin 9.3 g/dL (13.0-16.5); Lymphocyte # 0.51 X10^3/ul (4.0); Lymphocyte % 13.5 % (19-41); Mean Corp Hgb Conc 31.6 g/dL (32-36); Mean Corpuscular Hgb 33.3 pg (27.0-32.0); Mean Corpuscular Volume 105.4 fL (80-94); Monocyte# 0.52 X10^3/uL; Monocyte% 13.8 % (0-10); NRBC Flagged by Analyzer 0 % (0-5); Neutrophil # 2.25 X10^3/uL (2.7-7.7); Neutrophil % 59.7 % (47-70); POSITIVE DIFFERENTIAL YES; Platelet Count 116 K/mm3 (150-450); RBC Distribution Width CV 16.1 % (11.6-14.6); RBC Distribution Width SD 62.4 fl (35.1-43.9); Red Blood Count 2.79 M/mm3 (4.6-6.2); White Blood Count 3.8 K/mm3 (4.4-11.0)
[2018-12-17 06:45] LABS: International Normalized Ratio 1.7
[2018-12-17 07:09] LABS: Anion Gap 6 (5-15); BUN 15 mg/dL (7-18); BUN/Creat Ratio 22.3 RATIO (10-20); Calcium,Total 7.5 mg/dL (8.5-10.1); Chloride 114 mmol/L (98-107); Creatinine, Serum 0.67 mg/dL (0.70-1.30); EST Glomerular Filtration Rate 121 mL/min (>60); Est Glom Filt Rate - Afr Amer 146 mL/min (>60); Estimated Creatinine Clearance 58.92 ml/min; Glucose 108 mg/dL (74-106); Potassium 3.6 mmol/L (3.5-5.1); Sodium Level 142 mmol/L (136-145)
[2018-12-17 07:25] LABS: Differential Indicated SCAN CRITERIA MET
[2018-12-17 07:43] LABS: Anisocytosis 1+; Crenated RBC 1+
[2018-12-17 07:44] LABS: Platelet Estimate SLT DEC (ADEQ)
--- NOTE | 2018-12-17 08:09 | PCM.PROGNOTE ---
Patient Problems: Active and Suspected Problems (Last Updated 07/25/18 @ 11:53 by Rosanne Álvarez) Deep vein thrombosis (DVT) of right lower extremity (Acute) Frequent falls (Acute) Skin tear of elbow without complication (Acute) Subjective: Chief complaint: Follow-up after admission for extensive right lower extremity DVT, frequent falls, debility and overnight, he developed gram-negative bacteremia. Patient seen and examined. No acute events overnight. Today, he is feels better. Denies any significant complaints. Maximum temperature since yesterday morning was 99.7 Fahrenheit, other vital signs are stable. - Physical Exam General: Alert, Oriented x3, Cooperative, No apparent distress HEENT: Atraumatic, PERRLA, EOMI, Normocephalic Oral: Moist Mucosa, No Gingival or Mucosal Lesions/ Ulcerations Neck: Supple, No JVD, Negative Carotid Bruits, Trachea Midline, Thyroid Normal Size and Texture Lungs: Clear to auscultation, No rhonchi, No wheeze, No rales, Diminished Cardiovascular: Regular rate, Regular Rhythm, Normal S1, Normal S2, PMI Normal Abdomen: Bowel Sounds Present, Soft, Non Tender, Non-Distended, No Hepato-splenomegaly Extremities: No clubbing, No cyanosis, Edema - + Edema, ecchymosis and bruises. Skin: No rashes, - - Left elbow abrasion. Lymphatic: No Cervical, Supraclavicular, or Inguinal Adenopathy Neurological: Cranial nerves II-XII grossly intact, Neuro grossly intact Psych/Mental Status: Normal Affect, Appropriate Vital Signs Temp Pulse Resp BP Pulse Ox 97.7 F L 73 16 99/55 L 98 12/17/18 04:15 12/17/18 07:39 12/17/18 04:15 12/17/18 06:50 12/17/18 07:30 Oxygen Delivery Method Room Air Weight: 221 lb 1.978 oz Body Mass Index (BMI) 32.6 Orthostatic Vital Signs Start: 12/15/18 21:59 Freq: 0600 Status: Active Protocol: Activity Type Activity Date Activity User E-Sign Co-Sign Detail Recorded Client Recorded Date Recorded By Document 12/17/18 06:50 BS [id number] 12/17/18 06:50 BS 12/17/18 06:50 Orthostatic Vitals Standing -Blood Pressure (90/60-120/80) 104/58 L -Extremity Use Left Arm -Pulse Rate (60-100) 82 Sitting -Blood Pressure (90/60-120/80) 105/57 L -Extremity Use Left Arm -Pulse Rate (60-100) 75 Lying -Blood Pressure (90/60-120/80) 99/55 L -Extremity Use Left Arm -Pulse Rate (60-100) 79 Intake and Output for Last 24 Hours 12/15/18 12/16/18 12/17/18 23:59 23:59 23:59 Intake Total 1515.00 / 1515.00 2326.67 / 2326.67 140.25 / 140.25 Output Total 475 / 475 800 / 800 250 / 250 Balance 1040.00 / 1040.00 1526.67 / 1526.67 -109.75 / -109.75 Microbiology Past 72 Hours 12/15/18 11:15 Urine Culture - Preliminary Urine, Catheterized Escherichia coli 12/15/18 10:00 Blood Culture - Final Blood Culture (Wb) - Anticubital Right Gram negative yoselin 12/15/18 10:28 Blood Culture - Final Blood Culture (Wb) - Right Hand Providencia rettgeri 12/15/18 15:30 Respiratory Panel (PCR) - Final Mucosa - Nasopharyngeal Laboratory Tests Past 24 Hrs 12/17/18 12/17/18 12/17/18 06:05 06:05 06:05 WBC 3.8 L RBC 2.79 L Hgb 9.3 L Hct 29.4 L MCV 105.4 H MCH 33.3 H MCHC 31.6 L RDW Std Deviation 62.4 H RDW Coeff of Chery 16.1 H Plt Count 116 L MPV 11.0 Immature Gran % (Auto) 0.800 Neut % (Auto) 59.7 Lymph % (Auto) 13.5 L [place] % (Auto) 13.8 H Eos % (Auto) 11.7 H Baso % (Auto) 0.5 Absolute Neuts (auto) 2.3 Absolute Lymphs (auto) 0.51 L Nucleated RBC % 0 Platelet Estimate SLT DEC Anisocytosis 1+ Crenated Cell 1+ PT 20.0 H INR 1.7 Sodium 142 Potassium 3.6 Chloride 114 H Carbon Dioxide 22.0 Anion Gap 6 BUN 15 Creatinine 0.67 L Estim Creat Clear Calc 58.92 Est GFR (MDRD) Af Amer 146 Est GFR (MDRD) Non-Af 121 BUN/Creatinine Ratio 22.3 H Glucose 108 H Calcium 7.5 L Medical Necessity - Tobacco Use Smoking Status: Former smoker Assessment/Plan All Active Problems (Last Updated 07/25/18 @ 11:53 by Rosanne Álvarez) Deep vein thrombosis (DVT) of right lower extremity (Acute) Frequent falls (Acute) Skin tear of elbow without complication (Acute) This is an 78 years old male patient presented to the emergency room because of weakness, frequent falls and difficulty ambulating, found to have extensive acute DVT of the right lower extremity, and overnight he was found to have gram-negative bacteremia. #1 acute right lower extremity DVT: Probably due to his malignancy, multiple myeloma. Yesterday, INR was 2 and he has been off Lovenox and Coumadin. After discussion with the patient and reviewing his chart as well as discussion with cardiology, decision was made to start patient on Eliquis. Today, his INR is 1.7. Plan: Start Eliquis today, no loading dose. #2 probable acute cystitis: On IV Zosyn, fever trend is improving. No leukocytosis, other vital signs are stable. Urine culture revealed ESBL E. coli, final is pending. Plan to add IV ertapenem, infectious disease consult. #3 gram-negative bacteremia: Probable source is the urine. One partner revealed Providencia rettgeri, other pathologies gram-negative rods. Urine culture revealed ESBL E. coli as above. Patient is on IV Zosyn. Plan to add IV ertapenem, infectious disease consult, repeat blood culture today. #4 dehydration: Received IV fluids. Kidney function is normal. Patient is clinically dehydrated but improved. Plan to discontinue IV fluids. #5 frequent falls/physical debility/functional decline: With multiple skin bruises and ecchymosis, abrasion of the left elbow. TSH was normal. PT OT. #6 paroxysmal atrial fibrillation: Rate is controlled, INR is 1.7. Continue amiodarone for rate control, start Eliquis as above. #7 hypothyroidism: TSH was normal, continue levothyroxine. #8 hypertension: Blood pressure stabilized. Orthostatic vitals were normal. Patient is not taking any antihypertensive medications at home. #9 multiple myeloma: Has been on Revlimid. Plan to follow-up with oncology as outpatient. #10 hyperlipidemia: Continue statins. #11 DVT prophylaxis: Started on Eliquis. This note was generated with [employer] dictation software. It may contain incorrect words, spelling, and punctuation that were not noted in checking the note before signing. Code Visit Inpatient E&M: 32862 Subs Hosp L2
[2018-12-17] MEDS: Furosemide 40 MG Tablet PO (10:54)
[2018-12-17] MEDS: Amiodarone 200 MG Tablet PO (10:54)
[2018-12-17] MEDS: APIXABAN 5 MG TABLET PO ×2 (10:54→21:38)
--- NOTE | 2018-12-17 15:16 | CM.UR ---
Met with patient who states that he spoke with his about HHC but that is as far as we got. No decision has been made as of yet. PT and OT saw patient today and recommended ongoing therapy. confirmed with patient that they had list of agencies. Encouraged him to discuss some more. a rx for a walker was left in office for me to f/u on. Placed in chart with green sheet and alerted Charge Nurse, Herson. Placed a tab on the side of rx as well to alert staff to it's presence. Tonya Hoang RN, CCM.
[2018-12-17] MEDS: Atorvastatin Calcium 10 MG Tablet PO (21:38)
[2018-12-18] VITALS (10 sets, daily range): BP systolic 97–127; BP diastolic 53–67; PULSE 60–84; RESP 16–18; TEMP 36.7–37.8; O2SAT 94–97
[2018-12-18] MEDS: Levothyroxine 50 MCG Tablet PO (06:45)
--- NOTE | 2018-12-18 08:15 | PN_ITS ---
Patient Problems: Active and Suspected Problems (Last Updated 07/25/18 @ 11:53 by Rosanne Álvarez) Deep vein thrombosis (DVT) of right lower extremity (Acute) Frequent falls (Acute) Skin tear of elbow without complication (Acute) Subjective: Chief complaint: Follow-up after admission for extensive right lower extremity DVT, frequent falls, debility, ESBL E. coli acute cystitis and bacteremia. Patient seen and examined. No acute events overnight. All over, he is feeling better. No specific complaints. Breathing is stable. He has been afebrile. Other vitals are stable. - Physical Exam General: Alert, Oriented x3, Cooperative, No apparent distress HEENT: Atraumatic, PERRLA, EOMI, Normocephalic Oral: Moist Mucosa, No Gingival or Mucosal Lesions/ Ulcerations Neck: Supple, No JVD, Negative Carotid Bruits, Trachea Midline, Thyroid Normal Size and Texture Lungs: Clear to auscultation, No rhonchi, No wheeze, No rales, Diminished Cardiovascular: Regular rate, Regular Rhythm, Normal S1, Normal S2, PMI Normal, Murmur - Systolic murmur. Abdomen: Bowel Sounds Present, Soft, Non Tender, Non-Distended, No Hepato- splenomegaly Extremities: No clubbing, No cyanosis, Edema - ++ Edema. Ecchymosis and bruises. Skin: No rashes, No breakdown Lymphatic: No Cervical, Supraclavicular, or Inguinal Adenopathy Neurological: Cranial nerves II-XII grossly intact, Motor Exam 5/5 strength throughout Psych/Mental Status: Normal Affect, Appropriate, Alert and oriented to time, place, person, mood and affect Vital Signs Temp Pulse Resp BP Pulse Ox 99.1 F 60 18 116/53 L 95 12/18/18 03:45 12/18/18 06:47 12/18/18 03:45 12/18/18 06:00 12/18/18 03:45 Oxygen Delivery Method CPAP Weight: 221 lb 1.978 oz Body Mass Index (BMI) 32.6 Orthostatic Vital Signs Start: 12/15/18 21:59 Freq: 0600 Status: Active Protocol: Activity Type Activity Date Activity User E-Sign Co-Sign Detail Recorded Client Recorded Date Recorded By Document 12/18/18 06:00 CM [id number] 12/18/18 06:39 CM 12/18/18 06:00 Orthostatic Vitals Standing -Blood Pressure (90/60-120/80 mm Hg) 127/65 H -Extremity Use Right Arm -Pulse Rate (60-100 beats/min) 84 Sitting -Blood Pressure (90/60-120/80 mm Hg) 124/63 H -Extremity Use Right Arm -Pulse Rate (60-100 beats/min) 77 Lying -Blood Pressure (90/60-120/80 mm Hg) 116/53 L -Extremity Use Right Arm -Pulse Rate (60-100 beats/min) 65 Intake and Output for Last 24 Hours 12/16/18 12/17/18 12/18/18 23:59 23:59 23:59 Intake Total 2326.67 / 2326.67 1200.25 / 1200.25 176 / 176 Output Total 800 / 800 1450 / 1450 300 / 300 Balance 1526.67 / 1526.67 -249.75 / -249.75 -124 / -124 Microbiology Past 72 Hours 12/15/18 11:15 Urine Culture - Preliminary Urine, Catheterized Escherichia coli 12/15/18 10:00 Blood Culture - Final Blood Culture (Wb) - Anticubital Right Gram negative yoselin 12/15/18 10:28 Blood Culture - Final Blood Culture (Wb) - Right Hand Providencia rettgeri 12/15/18 15:30 Respiratory Panel (PCR) - Final Mucosa - Nasopharyngeal Medical Necessity - Tobacco Use Smoking Status: Former smoker Assessment/Plan All Active Problems (Last Updated 07/25/18 @ 11:53 by Rosanne Álvarez) Deep vein thrombosis (DVT) of right lower extremity (Acute) Frequent falls (Acute) Skin tear of elbow without complication (Acute) This is an 78 years old male patient presented to the emergency room because of weakness, frequent falls and difficulty ambulating, found to have extensive acute DVT of the right lower extremity, ESBL E. coli acute cystitis and found to have Providencia rettgeri bacteremia. #1 acute right lower extremity DVT: Probably due to his malignancy, multiple myeloma. Started on Eliquis. Patient was on Coumadin and on admission, INR was 1.8. After discussion with the patient and reviewing his chart as well as discussion with cardiology, decision was made to start patient on Eliquis. Plan to continue Eliquis for now. #2 ESBL and E. coli acute cystitis: On IV ertapenem and Zosyn, afebrile for last 24 hours. No leukocytosis, other vital signs are stable. Urine culture revealed ESBL E. coli, final is pending. Infectious disease consulted, awaiting recommendations. #3 gram-negative bacteremia: Bacteria growing in the blood is different from the one in the urine. Blood culture revealed Providencia rettgeri. Patient is on IV Zosyn and ertapenem as above. Repeat blood cultures pending. Infectious disease consulted as above. #4 dehydration: Received IV fluids. Kidney function is normal. Patient is clinically dehydrated but improved. #5 frequent falls/physical debility/functional decline: With multiple skin bruises and ecchymosis, abrasion of the left elbow. TSH was normal. Patient refused to go to care home facility. Plan to go home when appropriate. #6 paroxysmal atrial fibrillation: Rate is controlled. Continue amiodarone for rate control, continue Eliquis as above. #7 hypothyroidism: TSH was normal, continue levothyroxine. #8 hypertension: Blood pressure stabilized. Orthostatic vitals were normal. Patient is not taking any antihypertensive medications at home. #9 multiple myeloma: Has been on Revlimid. Plan to follow-up with oncology as outpatient. #10 hyperlipidemia: Continue statins. #11 DVT prophylaxis: on Eliquis. This note was generated with [employer] dictation software. It may contain incorrect words, spelling, and punctuation that were not noted in checking the note before signing. Code Visit Inpatient E&M: 91785 Subs Hosp L2
[2018-12-18] MEDS: Amiodarone 200 MG Tablet PO (08:42)
[2018-12-18] MEDS: Furosemide 40 MG Tablet PO (08:42)
[2018-12-18] MEDS: APIXABAN 5 MG TABLET PO ×2 (08:42→21:35)
--- NOTE | 2018-12-18 15:18 | NURSING ---
Handoff completed, received from Lena Orellana RN. This RN will be taking over pt care at this time.
[2018-12-18] MEDS: Polyethylene Glycol 3350 17 GM PACKET PO (15:37)
[2018-12-18] MEDS: Atorvastatin Calcium 10 MG Tablet PO ×2 (21:35→21:38)
[2018-12-19] VITALS (13 sets, daily range): BP systolic 103–129; BP diastolic 51–71; PULSE 63–143; RESP 18–20; TEMP 36.8–37.1; O2SAT 94–97
[2018-12-19] MEDS: Levothyroxine 50 MCG Tablet PO (06:41)
[2018-12-19] MEDS: Polyethylene Glycol 3350 17 GM PACKET PO (08:02)
--- NOTE | 2018-12-19 10:35 | NURSING ---
wound photo: right posterior thigh
[2018-12-19] MEDS: Amiodarone 200 MG Tablet PO (10:48)
[2018-12-19] MEDS: Furosemide 40 MG Tablet PO (10:49)
--- NOTE | 2018-12-19 11:11 | DCINST_ITS ---
- Discharge Diagnoses Current Active Problems: Current Active and Chronic Problems (Last Updated 07/25/18 @ 11:53 by Rosanne Álvarez) Multiple myeloma (Chronic) Hypothyroidism (Chronic) Paroxysmal atrial fibrillation (Chronic) Hyperlipidemia (Chronic) Hypertension (Chronic) Deep vein thrombosis (DVT) of right lower extremity (Acute) Frequent falls (Acute) Skin tear of elbow without complication (Acute) You will use the following diet at home:: Cardiac Your food should be the consistency of: Regular Your liquids should be the consistency of: Regular/Thin Discharge Activity: Return to Normal Activity Allergies/Adverse Reactions: Allergies adhesive tape Adverse Reaction (Verified 12/15/18 12:43) Other Medications to take at Discharge Amiodarone HCl 200 mg PO DAILY 11/02/13 Atorvastatin Calcium [Lipitor] 10 mg PO QHS 11/02/13 Dexamethasone [Decadron] 4 mg PO UD 07/15/16 Docusate Sodium [Colace] 100 mg PO DAILY 07/15/16 Albuterol IH (ProAir) [Proair Hfa] 1 puff INHALATION Q6H PRN PRN 12/15/18 Furosemide [Lasix] 20 mg PO DAILY PRN 12/15/18 Levothyroxine Sodium 50 mcg PO DAILY 12/15/18 Polyethylene Glycol 3350 [Miralax] 17 gm PO DAILY PRN 12/15/18 Pomalidomide [Pomalyst] 2 mg PO DAILY 12/15/18 Potassium Chloride 20 meq PO DAILY 12/15/18 Acetaminophen [Tylenol Tablet] 650 mg PO Q6H PRN PRN tablet 12/19/18 Apixaban [Eliquis] 5 mg PO BID #60 tab 12/19/18 The following prescriptions were given: Apixaban [Eliquis] 5 mg PO BID #60 tab Prescription Printed Primary Care Physician: Tiburcio Leger MD [Primary Care Provider] - Please follow up with your Primary Care Physician in: 1-2 weeks Test Results: Test results from this visit will be discussed in further detail at your follow- up appointment, if applicable. Please Follow Up With: Tiburcio Leger MD When: Oncology Please Follow Up With: 1 week Proposed Discharge Date: 12/19/18
--- NOTE | 2018-12-19 11:54 | PCM.HP.ID ---
Problem List (1) Gram-negative bacteremia Status: Acute Reason for Consult: bacteremia Consulted by: Dr. Sebastian History of Present Illness: The patient is a 78 year old M with multiple myeloma, follows with Dr. Terry. Reports having dysuria, frequency, incomplete emptying of bladder about a month ago. Given a week of po abx bid without any improvement. Sx persisted, developed fever, generalized weakness. No abd or flank pain. No n/v/d. No h/o kidney stones. Came to ED 12/15 with fever to 102. Found to have RLE dvt, had been having RLE swelling and redness for a few weeks. Admitted on zosyn, ertapenem added when ucx showed ESBL. Feeling better, fever resolved. Additional history per at bedside. Denies any h/o prostate problems, but med list shows flomax. Full ROS Performed and neg except as noted above. - Medical History Past Medical History (Chronic Problems): Chronic Problems (Last Updated 07/25/18 @ 11:53 by Rosanne Álvarez) Multiple myeloma (Chronic) Hypothyroidism (Chronic) Paroxysmal atrial fibrillation (Chronic) Hyperlipidemia (Chronic) Hypertension (Chronic) Allergies/Adverse Reactions: Allergies adhesive tape Adverse Reaction (Verified 12/15/18 12:43) Other Home Medications: Ambulatory Orders Medication Instructions Recorded Amiodarone HCl 200 mg PO DAILY 11/02/13 Atorvastatin Calcium [Lipitor] 10 mg PO QHS 11/02/13 Dexamethasone [Decadron] 4 mg PO UD 07/15/16 Docusate Sodium [Colace] 100 mg PO DAILY 07/15/16 Albuterol IH (ProAir) [Proair Hfa] 1 puff INHALATION Q6H PRN PRN 12/15/18 Furosemide [Lasix] 20 mg PO DAILY PRN 12/15/18 Levothyroxine Sodium 50 mcg PO DAILY 12/15/18 Polyethylene Glycol 3350 [Miralax] 17 gm PO DAILY PRN 12/15/18 Pomalidomide [Pomalyst] 2 mg PO DAILY 12/15/18 Potassium Chloride 20 meq PO DAILY 12/15/18 Acetaminophen [Tylenol Tablet] 650 mg PO Q6H PRN PRN tab 12/19/18 Apixaban [Eliquis] 5 mg PO BID #60 tab 12/19/18 Smz/Tmp Ds [Bactrim Ds] 1 tab PO BID 40 Days #80 tab 12/19/18 Tamsulosin HCl [Flomax] 0.4 mg PO DAILY@1730 #30 cap 12/19/18 - Social History SMOKING STATUS:: Former smoker Vital Signs Temp Pulse Resp BP Pulse Ox 98.6 F 65 18 111/51 L 96 12/19/18 09:36 12/19/18 09:36 12/19/18 09:36 12/19/18 09:36 12/19/18 09:36 Oxygen Delivery Method Room Air Weight: 100.3 kg Body Mass Index (BMI) 32.6 Orthostatic Vital Signs Start: 12/15/18 21:59 Freq: 0600 Status: Active Protocol: Activity Type Activity Date Activity User E-Sign Co-Sign Detail Recorded Client Recorded Date Recorded By Document 12/19/18 06:00 CM [id number] 12/19/18 06:36 CM 12/19/18 06:00 Orthostatic Vitals Standing -Blood Pressure (90/60-120/80) 122/71 H -Extremity Use Right Arm -Pulse Rate (60-100) 87 Sitting -Blood Pressure (90/60-120/80) 129/58 H -Extremity Use Right Arm -Pulse Rate (60-100) 66 Lying -Blood Pressure (90/60-120/80) 111/61 -Extremity Use Right Arm -Pulse Rate (60-100) 64 Microbiology Past 72 Hours 12/17/18 08:30 Blood Culture - Preliminary Blood Culture (Wb) - Left Hand No growth in 48 hours. 12/17/18 08:26 Blood Culture - Preliminary Blood Culture (Wb) - Right Hand No growth in 48 hours. 12/15/18 11:15 Urine Culture - Final Urine, Catheterized Escherichia coli 12/15/18 10:00 Blood Culture - Final Blood Culture (Wb) - Anticubital Right Gram negative yoselin 12/15/18 10:28 Blood Culture - Final Blood Culture (Wb) - Right Hand Providencia rettgeri - Other Studies Radiology: [] reviewed Other Studies: [] Route of nutrition/ use of supplements: [] Nutritional Intake: [] IV Site: [] Grove Catheter: [] - Physical Exam General: Alert, Oriented x3, Cooperative, No apparent distress HEENT: Atraumatic, PERRLA, EOMI Neck: Supple, No Nodes Lungs: Rales - in bases Cardiovascular: Regular rate, Regular Rhythm Abdomen: Soft, Non Tender, Non-Distended, - - no flank pain Extremities: Edema Skin: Rash Present - RLE with intact, blood filled bulla. IV Site: Peripheral Musculoskeletal: No Tenderness to Palpation of Joints or Extremities Neurological: Cranial nerves II-XII grossly intact - Assessment/Plan Antibiotics: [] Assessment/Plan: [] Active and Suspected Problems (Last Updated 07/25/18 @ 11:53 by Rosanne Álvarez) Deep vein thrombosis (DVT) of right lower extremity (Acute) Frequent falls (Acute) Skin tear of elbow without complication (Acute) Providencia bacteremia with esbl ecoli (+) ucx, suspected source is prostatitis. Ok for discharge on bactrim DS bid for 6 week total, stop date 01/27/19. Check bmp 12/21 and 12/23, then weekly after that. ID followup in 2 weeks. Reviewed with him potential side effects. Recommend urology followup. Will follow, thank you, d/w primary team.
[2018-12-19] MEDS: APIXABAN 5 MG TABLET PO ×2 (12:50→21:27)
--- NOTE | 2018-12-19 13:31 | CASEMGMT ---
Addendum entered by Shakila Johnson 12/19/18 13:49: had asked this RN CM if pt's lower leg could have a dressing placed prior to discharge and Lawanda RN updated at this time, voices understanding. Allie LARES CM Original Note: This RN CM to room to speak with pt/ regarding discharge plan at this time. Pt is agreeable to [facility] at discharge at this time and per , they would like [facility] at this time. Call to Manoj at [facility] pharmacy and she states that they should be able to take pt for RN/PT/OT at this time. Script for WW had been left on chart but pt/ decline WW script at this time and pt states, 'we have one at home.' Pt also to be sent home on Eliquis and script previously sent to [facility]. Call to [facility] and per tech, pt's co-pay is $23.34 and pt updated by [place], [facility] pharmacist, and provided with Eliquis 30 day free trial card previously. Allie LARES CM
--- NOTE | 2018-12-19 13:42 | PHA.DC.MC ---
Pharmacy Service has performed discharge medication reconciliation and counseling for this patient. 1. APIXABAN 5MG PO BID 2. TAMSULOSIN 0.4MG PO DAILY 3. SULFAMETHOXAZOLE/TRIMETHOPRIM DS 1 TABLET BY MOUTH BID X 40 DAYS The patient's discharge medication list was reviewed for discrepancies and discrepancies were resolved. Home Medications Amiodarone HCl 200 mg PO DAILY 11/02/13 Atorvastatin Calcium [Lipitor] 10 mg PO QHS 11/02/13 Dexamethasone [Decadron] 4 mg PO UD 07/15/16 Docusate Sodium [Colace] 100 mg PO DAILY 07/15/16 Albuterol IH (ProAir) [Proair Hfa] 1 puff INHALATION Q6H PRN PRN 12/15/18 Furosemide [Lasix] 20 mg PO DAILY PRN 12/15/18 Levothyroxine Sodium 50 mcg PO DAILY 12/15/18 Polyethylene Glycol 3350 [Miralax] 17 gm PO DAILY PRN 12/15/18 Pomalidomide [Pomalyst] 2 mg PO DAILY 12/15/18 Potassium Chloride 20 meq PO DAILY 12/15/18 Acetaminophen [Tylenol Tablet] 650 mg PO Q6H PRN PRN tab 12/19/18 Apixaban [Eliquis] 5 mg PO BID #60 tab 12/19/18 Smz/Tmp Ds [Bactrim Ds] 1 tab PO BID 40 Days #80 tab 12/19/18 Tamsulosin HCl [Flomax] 0.4 mg PO DAILY@1730 #30 cap 12/19/18 The patient was counseled on the following discharge medications and changes in medications for homegoing were reviewed. The Reason for Use, instructions for use, and potential side effects were reviewed for all new medications. The patient's questions regarding all of their medications were answered. The patient was able to verbally demonstrate an understanding of their discharge medications.
--- NOTE | 2018-12-19 14:22 | CASEMGMT ---
LIANG spoke with Phylicia at Dr Terry's office and let her know patient is going home with home health today. Audrey SIFUENTES MSW
[2018-12-19] MEDS: Smz/Tmp Ds Tablet 1 TABLET PO ×2 (14:47→17:53)
[2018-12-19] MEDS: Tamsulosin HCl 0.4 MG Capsule PO ×2 (14:47→17:53)
--- NOTE | 2018-12-19 15:27 | PCM.DC.SUM ---
Discharge Date and Diagnosis - Problem List Patient Problems: Active and Suspected Problems (Last Updated 07/25/18 @ 11:53 by Rosanne Álvarez) Gram-negative bacteremia (Acute) Deep vein thrombosis (DVT) of right lower extremity (Acute) Frequent falls (Acute) Skin tear of elbow without complication (Acute) Date of Admission: 12/15/18 Date of Discharge: 12/19/18 - Primary Discharge Diagnosis Active and Suspected Problems (Last Updated 07/25/18 @ 11:53 by Rosanne Álvarez) bacteremia 2/2 Providencia, Acute UTI and prostatitis 2/2 E coli, ESBL Acute RLE DVT probably 2/2 melignancy - warfarin changed to eliquis Acute urinary retention Multiple myeloma Debility PAfib Hypothyroidism HTN HLD - Secondary Discharge Diagnosis Chronic Problems (Last Updated 07/25/18 @ 11:53 by Rosanne Álvarez) Multiple myeloma (Chronic) Hypothyroidism (Chronic) Paroxysmal atrial fibrillation (Chronic) Hyperlipidemia (Chronic) Hypertension (Chronic) Hospital Course and Treatment Imaging Results: Venous doppler: Interpretation Summary Acute deep venous thrombosis right common femoral, femoral, popliteal, tibioperoneal trunk, gastrocnemius vein, posterior tibial, peroneal, and anterior tibial veins. Patent and compressible right great saphenous vein Patent and compressible left common femoral vein RAD/Chest 1 View (Portable) IMPRESSION: Stable examination with mild increased markings at the left lung base suggestive of linear atelectasis and/or scarring. 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 He also had a fever at home for the past 5 days up to 100.6, and complained of decreasing urinary output. He is a patient of Dr. Terry currently undergoing therapy with Revlimid. In the emergency room he had fever, lactic acid of 2.0, positive urinalysis, right lower extremity swelling and bruising, and an ultrasound showing a DVT of the right lower extremity. His warfarin was subtherapeutic. He was admitted to the PCU and placed on Eliquis for DVT. Urine culture demonstrated ESBL E. coli, and her blood cultures demonstrated Providencia rettgeri. She was started empirically on ertapenem and Zosyn. Infectious disease was consulted. Repeat blood cultures were negative at 48 hours. Both of these were susceptible to Bactrim on final sensitivity. Infectious disease recommended 40 days of Bactrim therapy with weekly BMPs. The patient also had urinary retention while here a Grove catheter was placed. He was placed on Flomax, and a voiding trial was attempted. He unfortunately was unable to void without the Grove. Grove was placed and he was advised to follow-up with urology Dr. Davila in 1 week. He will also need follow-up with his PCP in 1 to 2 weeks, and follow-up with infectious disease in 2 weeks. He should follow-up with his oncologist as directed to continue treatment for his multiple myeloma. This patient was seen by Gary South PA-C under the supervision of Doctor Jaz. [] Patient Problems: Active and Suspected Problems (Last Updated 07/25/18 @ 11:53 by Rosanne Álvarez) Gram-negative bacteremia (Acute) Deep vein thrombosis (DVT) of right lower extremity (Acute) Frequent falls (Acute) Skin tear of elbow without complication (Acute) - Physical Exam Vitals/I&O's: Vital Signs Temp Pulse Resp BP Pulse Ox 98.2 F 73 18 103/61 97 12/19/18 15:01 12/19/18 15:01 12/19/18 15:01 12/19/18 15:01 12/19/18 15:01 Oxygen Delivery Method Room Air Weight: 221 lb 1.978 oz Body Mass Index (BMI) 32.6 Orthostatic Vital Signs Start: 12/15/18 21:59 Freq: 0600 Status: Active Protocol: Activity Type Activity Date Activity User E-Sign Co-Sign Detail Recorded Client Recorded Date Recorded By Document 12/19/18 06:00 CM [id number] 12/19/18 06:36 CM 12/19/18 06:00 Orthostatic Vitals Standing -Blood Pressure (90/60-120/80) 122/71 H -Extremity Use Right Arm -Pulse Rate (60-100) 87 Sitting -Blood Pressure (90/60-120/80) 129/58 H -Extremity Use Right Arm -Pulse Rate (60-100) 66 Lying -Blood Pressure (90/60-120/80) 111/61 -Extremity Use Right Arm -Pulse Rate (60-100) 64 Intake and Output for Last 24 Hours 12/17/18 12/18/18 12/19/18 23:59 23:59 23:59 Intake Total 1200.25 / 1200.25 1296 / 1296 984.50 / 984.50 Output Total 1450 / 1450 2225 / 2225 975 / 975 Balance -249.75 / -249.75 -929 / -929 9.50 / 9.50 Microbiology Past 72 Hours 12/17/18 08:30 Blood Culture (Wb) - Left Hand Blood Culture - Preliminary No growth in 48 hours. 12/17/18 08:26 Blood Culture (Wb) - Right Hand Blood Culture - Preliminary No growth in 48 hours. 12/15/18 11:15 Urine, Catheterized Urine Culture - Final Escherichia coli 12/15/18 10:00 Blood Culture (Wb) - Anticubital Right Blood Culture - Final Gram negative yoselin 12/15/18 10:28 Blood Culture (Wb) - Right Hand Blood Culture - Final Providencia rettgeri Current Medications Acetaminophen (Tylenol) 650 mg PO Q6H PRN PRN PRN Reason: Pain Score 1-3/Temp > 100.7 F Last Admin: 12/16/18 12:28 Dose: 650 mg Documented by: Albuterol Sulfate (Ventolin Aerosols) 2.5 mg INHALATION Q4H PRN PRN PRN Reason: Shortness of breath, wheezing Amiodarone HCl (Cordarone) 200 mg PO DAILY [facility] Last Admin: 12/19/18 10:48 Dose: 200 mg Documented by: Apixaban (Eliquis) 5 mg PO BID [facility] Last Admin: 12/19/18 12:50 Dose: 5 mg Documented by: Atorvastatin Calcium (Lipitor) 10 mg PO QHS [facility] Last Admin: 12/18/18 21:38 Dose: 10 mg Documented by: Furosemide (Lasix) 40 mg PO DAILY [facility] Last Admin: 12/19/18 10:49 Dose: 40 mg Documented by: Sodium Chloride () 250 mls @ 15 mls/hr IV .[id number] PRN PRN Reason: Saline Flush Last Infusion: 12/19/18 12:25 Dose: 0 mls/hr Documented by: Levothyroxine Sodium (Synthroid) 50 mcg PO DAILY@0600 [facility] Last Admin: 12/19/18 06:41 Dose: 50 mcg Documented by: Nutritional Formula (Lactose Free) (Ensure Enlive) 120 ml PO 4X/DAY [facility] Last Admin: 12/19/18 14:03 Dose: 120 ml Documented by: Ondansetron HCl (Zofran) 4 mg IV Q8H PRN PRN PRN Reason: NAUSEA/VOMITING Polyethylene Glycol (Miralax) 17 gm PO DAILY PRN PRN Reason: Constipation Last Admin: 12/19/18 08:02 Dose: 17 gm Documented by: Senna/Docusate Sodium (Senokot-S, Nancy-Colace) 2 tablet PO DAILY PRN PRN PRN Reason: CONSTIPATION Sodium Chloride () 5 - 15 ml IV UD PRN PRN Reason: SALINE FLUSH Last Admin: 12/17/18 05:36 Dose: 10 ml Documented by: Tamsulosin HCl (Flomax) 0.4 mg PO DAILY@1730 [facility] Last Admin: 12/19/18 14:47 Dose: 0.4 mg Documented by: Trimethoprim/Sulfamethoxazole (Bactrim Ds) 1 tablet PO BIDCM [facility] Last Admin: 12/19/18 14:47 Dose: 1 tablet Documented by: Discharge Diet: Low fat/ Low Cholesterol, 2000 mg Sodium Diet Discharge Activity: Return to Normal Activity Home Medications: Medications to take at Discharge Amiodarone HCl 200 mg PO DAILY 11/02/13 Atorvastatin Calcium [Lipitor] 10 mg PO QHS 11/02/13 Dexamethasone [Decadron] 4 mg PO UD 07/15/16 Docusate Sodium [Colace] 100 mg PO DAILY 07/15/16 Albuterol IH (ProAir) [Proair Hfa] 1 puff INHALATION Q6H PRN PRN 12/15/18 Furosemide [Lasix] 20 mg PO DAILY PRN 12/15/18 Levothyroxine Sodium 50 mcg PO DAILY 12/15/18 Polyethylene Glycol 3350 [Miralax] 17 gm PO DAILY PRN 12/15/18 Pomalidomide [Pomalyst] 2 mg PO DAILY 12/15/18 Potassium Chloride 20 meq PO DAILY 12/15/18 Acetaminophen [Tylenol Tablet] 650 mg PO Q6H PRN PRN tab 12/19/18 Apixaban [Eliquis] 5 mg PO BID #60 tab 12/19/18 Smz/Tmp Ds [Bactrim Ds] 1 tab PO BID 40 Days #80 tab 12/19/18 Tamsulosin HCl [Flomax] 0.4 mg PO DAILY@1730 #30 cap 12/19/18 Following Prescrptions Were Given to Patient: Smz/Tmp Ds [Bactrim Ds] 1 tab PO BID 40 Days #80 tab Transmission Status: Received by [id number] Apixaban [Eliquis] 5 mg PO BID #60 tab Prescription Printed Tamsulosin HCl [Flomax] 0.4 mg PO DAILY@1730 #30 cap Transmission Status: Received by [id number] Other Amb Orders: Basic Metabolic Profile (BMP) Time Frame: 2 Days, Facility: [facility], Location: Laboratory Primary Care Physician: Tiburcio Leger MD [Primary Care Provider] - Please follow up with your Primary Care Physician in: 1-2 weeks Please Follow Up With: Tiburcio Leger MD Please Follow Up With: Oncology When: as directed Please Follow Up With: Asad Davila MD When: 1 week Please Follow Up With: Ricki Ace MD When: 2 weeks Disposition: Home with Home Health Minutes spent on discharge:: 35 Patient Condition:: Stable Medical Necessity - Tobacco Use Smoking Status: Former smoker Meaningful Use Info Meaningful Use Diagnoses (Choose all that apply): None applicable
--- NOTE | 2018-12-19 17:28 | ECHOCS_ITS ---
Reason For Study: MURMUR Procedure This was a 2D Doppler, Color Flow transthoracic echocardiogram. The study was technically difficult. Due to body habitus. Contrast injection was performed. Exam performed portable in patient room. Left Ventricle Based upon the 2D echocardiographic and contrast enhanced images obtained there appears to be grossly normal left ventricular size, wall motion, and systolic function. The estimated ejection fraction is 70 %. Unable to assess diastolic dysfunction. Right Ventricle Based upon the 2D echocardiographic and contrast enhanced images obtained there appears to be grossly normal right ventricular size and systolic function. Atria The left atrium is moderately enlarged. Normal right atrium. No doppler evidence for ASD. Mitral Valve There is moderate mitral annular calcification. Extension of the mitral annular calcification onto the mitral valve leaflets. Mild (1+) mitral valve insufficiency. Tricuspid Valve Normal tricuspid valve. Trivial tricuspid valve insufficiency. Right ventricular systolic pressure estimated to be 41 mmHg. Aortic Valve Trisinus/trileaflet aortic valve. Moderate diffuse aortic valve calcification. Moderate aortic stenosis. Pulmonic Valve The pulmonic valve is not well visualized. Trivial pulmonic valve insufficiency. Great Vessels Normal sized aortic root. Pericardium/Pleural No pericardial effusion. Medication Diluted definity 2.5ml given slow IV push to enhance endocardial definition. MMode/2D Measurements & Calculations LVOT diam: 2.0 cm Ao root diam: 3.6 cm LAV(MOD-bp): 106.4 ml LVOT area: 3.0 cm2 LAV(MOD-bp) Indexed: 48.6 ml/m2 LAV(MOD-sp2): 106.0 ml LAV(MOD-sp4): 107.3 ml LA A4 area: 29.5 cm2 Doppler Measurements & Calculations MV E max tyrell: 127.4 cm/sec Ao V2 max: 333.0 cm/sec LV V1 max: 108.1 cm/sec Ao max P.4 mmHg LV V1 max P.7 mmHg Ao V2 mean: 244.3 cm/sec LV V1 mean P.8 mmHg Ao mean P.2 mmHg LV V1 mean: 79.9 cm/sec Ao V2 VTI: 62.5 cm LV V1 VTI: 19.5 cm IGNACIO(I,D): 0.94 cm2 IGNACIO(V,D): 0.97 cm2 SV(LVOT): 58.5 ml PA V2 max: 106.3 cm/sec TR max tyrell: 308.1 cm/sec TR max P.0 mmHg Interpretation Summary The study was technically difficult. Contrast injection was performed. Based upon the 2D echocardiographic and contrast enhanced images obtained there appears to be grossly normal left ventricular size, wall motion, and systolic function. The estimated ejection fraction is 70 %. The left atrium is moderately enlarged. There is moderate mitral annular calcification. Extension of the mitral annular calcification onto the mitral valve leaflets. Mild (1+) mitral valve insufficiency. Trivial tricuspid valve insufficiency. Moderate aortic stenosis. Trivial pulmonic valve insufficiency. Right ventricular systolic pressure estimated to be 41 mmHg. Unable to assess diastolic dysfunction. Ordering Physician: Halie Sebastian Referring Physician: Tiburcio Leger Performed By: Ирина Valles, KENRICK, RVT
--- NOTE | 2018-12-19 18:14 | PN_ITS ---
Patient Problems: Active and Suspected Problems (Last Updated 07/25/18 @ 11:53 by Rosanne Álvarez) Gram-negative bacteremia (Acute) Deep vein thrombosis (DVT) of right lower extremity (Acute) Frequent falls (Acute) Skin tear of elbow without complication (Acute) Subjective: The patient was seen independently and in conjunction with MARY ANN Ariza. He is an 78-year-old male with a past medical history of multiple myeloma. For the past few weeks he has been getting weaker and he has had some falls. Denies weight loss. No CP and no SOB. No cough. Past medical history is significant for multiple myeloma, hypothyroidism, paroxysmal atrial fibrillation, chronic anticoagulation, hyperlipidemia, hypertension. He presented to the emergency department at [facility] on 12/15/2018 complaining of weakness and a fall the preceding day. He was unable to get up off the floor. He stated that his urine output was decreasing and his urine was very dark in color. His related that he had a large dark gummy BM on the day of admission. He also c/o swelling and erythema of the RLE. A venous US in the ED was + for deep vein thrombosis in the right common femoral, femoral, popliteal, tibial peroneal trunk, gastrocnemius vein, posterior tibial, peroneal and anterior tibial veins. The right great saphenous vein was patent and compressible. There was a patent and compressible left common femoral vein. He follows up with Dr. Terry as an outpatient and is on Revlimid. INR was subtherapeutic at 1.8 in the emergency room but the patient states that a few weeks ago it was 4.[address] Leger has been adjusting his Coumadin. Urinalysis showed cloudy urine with 25 leukocyte Estrace and 0-5 WBCs with 4+ bacteria. Chest x-ray showed no acute findings. Hemoglobin at admission was 10.2, down from 12.2 in June 2018. Platelets were 111,000, down from 190,000 in June 2018. BMP was unremarkable. Lactic acid was 2.0. LFTs were remarkable for an increased bilirubin at 2.1. TSH was within normal limits at 2.7. He was admitted to the hospital with a diagnosis of acute right lower extremity DVT and dehydration. He was started on therapeutic Lovenox until the INR was therapeutic. He tells me that he has urinary urgency and he does not feel like he completely empties his bladder. He only goes a small amount each time and he has urinary frequency. In fact he had a large residual on a post void bladder scan and a Grove catheter was placed. He has been started on Flomax. Grove catheter is still in place. A blood culture from 12/15/2018 grew Boone Retshoerri and the urine culture grew E. Coli. He was seen by Dr. Ace today who has diagnosed him with prostatitis and placed him on Bactrim DS for 4 weeks. T-max during his admission was 102.2 that was on the date of admission. He is afebrile today. Blood pressures have been stable. He is 94 to 97% saturated on room air today. Repeat lab on the showed the hemoglobin to be 9.3, down from 10.7 at admission. Platelets were stable at 116,000. MCV is increased at 105.4. His is afraid to take him home because he has been falling and he has a large blood blister over the distal R miranda. Alert and oriented X 3, NAD. He has an abrasion over the Left elbow that does not appear infected.....the tissue is mildly macerated due to the occlusive dressing. He has bruises over all 4 extremities and there is large blood blister over the distal R anterior miranda which is tender. Lungs are CTA Heart RRR, no gallop and no rub. He has a CANDIDA over the second RICS with radiation to the LVOT and the LLSB. He has never had a ECHO at this hospital. He has previously followed with Dr. Alex Delvalle but, plans on following up with Dr. Reddy going forward. The RLE is reddish purple with increased warmth to touch up to the knee. He has pitting edema of the R posterior and medial thigh. Impressions 1. Boone he had bacteremia with ESBL E. coli urine culture secondary to suspected prostatitis. Will need 6 weeks total of antibiotics. 2. Acute deep vein thrombosis of the right lower extremity-converted from warfarin which was subtherapeutic at admission to Eliquis 5 mg twice daily but the Eliquis was not loaded. 3. anemia - 2 GM drop since June - due to GI bleeding? or to MM? 4. weakness and falls recently. Has only ambulated 30 feet since admission. May need SNF. 5. thrombocytopenia - stable 6. MM 7. urine retention - suspected to be due to BPH. Flomax has been added to the drug regimen. 8. PAF on Anticoagulation 9. HLD - statins continued 10. Chronic pain syndrome-follows with Dr. Dr. Maki 11. Hyperbilirubinemia - etiology? Hemolysis? Maintain in the hospital tonight and have PT re-evaluate in the AM - not seen today. Possible I&D of the hematoma/blood blister of the LLE tomorrow if it continues to get larger. Check a Hemoccult stool LDH and Haptoglobin Check a direct and indirect bili Recheck CBC and CMP in the AM D/W Gary and orders have been written - Physical Exam Vitals/I&O's: Vital Signs Temp Pulse Resp BP Pulse Ox 98.2 F 84 18 103/61 97 12/19/18 15:01 12/19/18 15:33 12/19/18 15:01 12/19/18 15:01 12/19/18 15:01 Oxygen Delivery Method Room Air Weight: 221 lb 1.978 oz Body Mass Index (BMI) 32.6 Orthostatic Vital Signs Start: 12/15/18 21:59 Freq: 0600 Status: Active Protocol: Activity Type Activity Date Activity User E-Sign Co-Sign Detail Recorded Client Recorded Date Recorded By Document 12/19/18 06:00 CM [id number] 12/19/18 06:36 CM 12/19/18 06:00 Orthostatic Vitals Standing -Blood Pressure (90/60-120/80 mm Hg) 122/71 H -Extremity Use Right Arm -Pulse Rate (60-100 beats/min) 87 Sitting -Blood Pressure (90/60-120/80 mm Hg) 129/58 H -Extremity Use Right Arm -Pulse Rate (60-100 beats/min) 66 Lying -Blood Pressure (90/60-120/80 mm Hg) 111/61 -Extremity Use Right Arm -Pulse Rate (60-100 beats/min) 64 Intake and Output for Last 24 Hours 12/17/18 12/18/18 12/19/18 23:59 23:59 23:59 Intake Total 1200.25 / 1200.25 1296 / 1296 1584.50 / 1584.50 Output Total 1450 / 1450 2225 / 2225 2225 / 2225 Balance -249.75 / -249.75 -929 / -929 -640.50 / -640.50 Microbiology Past 72 Hours 12/17/18 08:30 Blood Culture (Wb) - Left Hand Blood Culture - Preliminary No growth in 48 hours. 12/17/18 08:26 Blood Culture (Wb) - Right Hand Blood Culture - Preliminary No growth in 48 hours. 12/15/18 11:15 Urine, Catheterized Urine Culture - Final Escherichia coli 12/15/18 10:00 Blood Culture (Wb) - Anticubital Right Blood Culture - Final Gram negative yoselin 12/15/18 10:28 Blood Culture (Wb) - Right Hand Blood Culture - Final Providencia rettgeri Current Medications Acetaminophen (Tylenol) 650 mg PO Q6H PRN PRN PRN Reason: Pain Score 1-3/Temp > 100.7 F Last Admin: 12/16/18 12:28 Dose: 650 mg Documented by: Albuterol Sulfate (Ventolin Aerosols) 2.5 mg INHALATION Q4H PRN PRN PRN Reason: Shortness of breath, wheezing Amiodarone HCl (Cordarone) 200 mg PO DAILY [facility] Last Admin: 12/19/18 10:48 Dose: 200 mg Documented by: Apixaban (Eliquis) 5 mg PO BID [facility] Last Admin: 12/19/18 12:50 Dose: 5 mg Documented by: Atorvastatin Calcium (Lipitor) 10 mg PO QHS [facility] Last Admin: 12/18/18 21:38 Dose: 10 mg Documented by: Furosemide (Lasix) 40 mg PO DAILY [facility] Last Admin: 12/19/18 10:49 Dose: 40 mg Documented by: Sodium Chloride () 250 mls @ 15 mls/hr IV .[id number] PRN PRN Reason: Saline Flush Last Infusion: 12/19/18 12:25 Dose: 0 mls/hr Documented by: Levothyroxine Sodium (Synthroid) 50 mcg PO DAILY@0600 [facility] Last Admin: 12/19/18 06:41 Dose: 50 mcg Documented by: Nutritional Formula (Lactose Free) (Ensure Enlive) 120 ml PO 4X/DAY [facility] Last Admin: 12/19/18 17:53 Dose: 120 ml Documented by: Ondansetron HCl (Zofran) 4 mg IV Q8H PRN PRN PRN Reason: NAUSEA/VOMITING Polyethylene Glycol (Miralax) 17 gm PO DAILY PRN PRN Reason: Constipation Last Admin: 12/19/18 08:02 Dose: 17 gm Documented by: Senna/Docusate Sodium (Senokot-S, Nancy-Colace) 2 tablet PO DAILY PRN PRN PRN Reason: CONSTIPATION Sodium Chloride () 5 - 15 ml IV UD PRN PRN Reason: SALINE FLUSH Last Admin: 12/17/18 05:36 Dose: 10 ml Documented by: Tamsulosin HCl (Flomax) 0.4 mg PO DAILY@1730 [facility] Last Admin: 12/19/18 17:53 Dose: 0.4 mg Documented by: Trimethoprim/Sulfamethox[facility] ([facility]rim Ds) [facility] Last Admin: 12/19/18 17:53 Dose: 1 tablet Documented by: Medical Necessity - Tobacco Use Smoking Status: Former smoker Assessment/Plan All Active Problems (Last Updated 07/25/18 @ 11:53 by Rosanne Álvarez) Gram-negative bacteremia (Acute) Deep vein thrombosis (DVT) of right lower extremity (Acute) Frequent falls (Acute) Skin tear of elbow without complication (Acute) Code Visit Inpatient E&M: 29307 Subs Hosp L2
[2018-12-19 19:09] LABS: Platelet Count 196 K/mm3 (150-450); RET-HE 32.8 pg (30-35); Reticulocyte Count 1.99 % (0.5-1.5)
[2018-12-19 19:52] LABS: Vitamin B12 375 pg/mL (211-911)
[2018-12-19 19:53] LABS: LDH 292 U/L (87-241)
[2018-12-20] VITALS (11 sets, daily range): BP systolic 82–101; BP diastolic 44–59; PULSE 77–96; RESP 17–18; TEMP 36.4–36.9; O2SAT 95–97
[2018-12-20] MEDS: Levothyroxine 50 MCG Tablet PO (05:23)
[2018-12-20 06:14] LABS: Hematocrit 34.9 % (40-54); Hemoglobin 11.2 g/dL (13.0-16.5); Mean Corp Hgb Conc 32.1 g/dL (32-36); Mean Corpuscular Hgb 33.8 pg (27.0-32.0); Mean Corpuscular Volume 105.4 fL (80-94); Mean Platelet Vol. 10.7 fl (6.2-12.0); Platelet Count 192 K/mm3 (150-450); RBC Distribution Width CV 15.9 % (11.6-14.6); RBC Distribution Width SD 61.4 fl (35.1-43.9); Red Blood Count 3.31 M/mm3 (4.6-6.2); White Blood Count 4.6 K/mm3 (4.4-11.0)
[2018-12-20 06:41] LABS: ALB/GLOB Ratio 0.6 RATIO (0.9-2.4); AST(SGOT) 37 U/L (15-37); Alanine Aminotransfer ALT/SGPT 58 U/L (16-61); Albumin, Serum 1.9 g/dL (3.2-5.0); Alkaline Phosphatase 63 U/L (45-117); Anion Gap 5 (5-15); BUN 17 mg/dL (7-18); Calcium,Total 8.5 mg/dL (8.5-10.1); Chloride 108 mmol/L (98-107); Creatinine, Serum 0.71 mg/dL (0.70-1.30); EST Glomerular Filtration Rate 113 mL/min (>60); Est Glom Filt Rate - Afr Amer 137 mL/min (>60); Estimated Creatinine Clearance 58.92 ml/min; Glucose 117 mg/dL (74-106); Phosphorus 3.7 mg/dL (2.5-4.9); Potassium 3.8 mmol/L (3.5-5.1); Protein, Total 4.9 g/dL (6.4-8.2); Sodium Level 139 mmol/L (136-145)
[2018-12-20] MEDS: APIXABAN 5 MG TABLET PO (09:15)
[2018-12-20] MEDS: Smz/Tmp Ds Tablet 1 TABLET PO (09:15)
[2018-12-20] MEDS: Amiodarone 200 MG Tablet PO (09:15)
[2018-12-20] MEDS: Furosemide 40 MG Tablet PO (09:15)
--- NOTE | 2018-12-20 10:39 | PN.ID_ITS ---
Patient Problems: Active and Suspected Problems (Last Updated 07/25/18 @ 11:53 by Rosanne Álvarez) Gram-negative bacteremia (Acute) Deep vein thrombosis (DVT) of right lower extremity (Acute) Frequent falls (Acute) Skin tear of elbow without complication (Acute) Subjective: Feeling ok, no fever, no rash, no n/v/d. - Physical Exam Vitals/I&O's: Vital Signs Temp Pulse Resp BP Pulse Ox 98.1 F 79 17 99/53 L 96 12/20/18 08:44 12/20/18 08:44 12/20/18 08:44 12/20/18 08:44 12/20/18 08:44 Oxygen Delivery Method Room Air Weight: 100.3 kg Body Mass Index (BMI) 32.6 Orthostatic Vital Signs Start: 12/15/18 21:59 Freq: 0600 Status: Active Protocol: Activity Type Activity Date Activity User E-Sign Co-Sign Detail Recorded Client Recorded Date Recorded By Document 12/20/18 05:12 [id number] 12/20/18 05:20 [id number] 12/20/18 05:12 Orthostatic Vitals Standing -Blood Pressure (90/60-120/80) 85/50 L -Extremity Use Right Arm -Pulse Rate (60-100) 84 Sitting -Blood Pressure (90/60-120/80) 95/55 L -Extremity Use Right Arm -Pulse Rate (60-100) 94 Lying -Blood Pressure (90/60-120/80) 87/44 L -Extremity Use Right Arm -Pulse Rate (60-100) 82 Intake and Output for Last 24 Hours 12/18/18 12/19/18 12/20/18 23:59 23:59 23:59 Intake Total 1296 / 1296 1584.50 / 1704.50 180 / 180 Output Total 2225 / 2225 2225 / 3225 1550 / 1550 Balance -929 / -929 -640.50 / -1520.50 -1370 / -1370 General: Alert, Cooperative, No apparent distress Lungs: Clear to auscultation, Normal air movement Cardiovascular: Regular rate Abdomen: Soft, Non Tender, Non-Distended Extremities: Edema Skin: Rash Present - RLE erythema Microbiology Past 72 Hours 12/17/18 08:30 Blood Culture (Wb) - Left Hand Blood Culture - Preliminary No growth in 48 hours. 12/17/18 08:26 Blood Culture (Wb) - Right Hand Blood Culture - Preliminary No growth in 48 hours. 12/15/18 11:15 Urine, Catheterized Urine Culture - Final Escherichia coli 12/15/18 10:00 Blood Culture (Wb) - Anticubital Right Blood Culture - Final Gram negative yoselin 12/15/18 10:28 Blood Culture (Wb) - Right Hand Blood Culture - Final Providencia rettgeri Laboratory Results 12/19/18 18:58: Lactate Dehydrogenase 292 H, Folate 13.70 12/19/18 18:58: Haptoglobin Pending 12/19/18 18:58: Retic Count 1.99 H, Immature Retic Fraction 36.70 H, Retic Hgb Equivalent 32.8 12/19/18 18:58: Vitamin B12 375 12/20/18 05:45: WBC 4.6, RBC 3.31 L, Hgb 11.2 L, Hct 34.9 L, MCV 105.4 H, MCH 33.8 H, MCHC 32.1, RDW Std Deviation 61.4 H, RDW Coeff of Chery 15.9 H, Plt Count 192, MPV 10.7 12/20/18 05:45: Sodium 139, Potassium 3.8, Chloride 108 H, Carbon Dioxide 26.0, Anion Gap 5, BUN 17, Creatinine 0.71, Estim Creat Clear Calc 58.92, Est GFR (MDRD) Af Amer 137, Est GFR (MDRD) Non-Af 113, BUN/Creatinine Ratio 24.0 H, Glucose 117 H, Calcium 8.5, Phosphorus 3.7, Magnesium 2.0, Total Bilirubin 0.40, AST 37, ALT 58, Alkaline Phosphatase 63, Total Protein 4.9 L, Albumin 1.9 L, Globulin 3.0, Albumin/Globulin Ratio 0.6 L Current Medications Acetaminophen (Tylenol) 650 mg PO Q6H PRN PRN PRN Reason: Pain Score 1-3/Temp > 100.7 F Last Admin: 12/16/18 12:28 Dose: 650 mg Documented by: Albuterol Sulfate (Ventolin Aerosols) 2.5 mg INHALATION Q4H PRN PRN PRN Reason: Shortness of breath, wheezing Amiodarone HCl (Cordarone) 200 mg PO DAILY [facility] Last Admin: 12/20/18 09:15 Dose: 200 mg Documented by: Apixaban (Eliquis) 5 mg PO BID [facility] Last Admin: 12/20/18 09:15 Dose: 5 mg Documented by: Atorvastatin Calcium (Lipitor) 10 mg PO QHS [facility] Last Admin: 12/18/18 21:38 Dose: 10 mg Documented by: Furosemide (Lasix) 40 mg PO DAILY [facility] Last Admin: 12/20/18 09:15 Dose: 40 mg Documented by: Sodium Chloride () 250 mls @ 15 mls/hr IV .[id number] PRN PRN Reason: Saline Flush Last Infusion: 12/19/18 12:25 Dose: 0 mls/hr Documented by: Levothyroxine Sodium (Synthroid) 50 mcg PO DAILY@0600 [facility] Last Admin: 12/20/18 05:23 Dose: 50 mcg Documented by: Nutritional Formula (Lactose Free) (Ensure Enlive) 120 ml PO 4X/DAY [facility] Last Admin: 12/20/18 09:15 Dose: 120 ml Documented by: Ondansetron HCl (Zofran) 4 mg IV Q8H PRN PRN PRN Reason: NAUSEA/VOMITING Polyethylene Glycol (Miralax) 17 gm PO DAILY PRN PRN Reason: Constipation Last Admin: 12/19/18 08:02 Dose: 17 gm Documented by: Senna/Docusate Sodium (Senokot-S, Nancy-Colace) 2 tablet PO DAILY PRN PRN PRN Reason: CONSTIPATION Sodium Chloride () 5 - 15 ml IV UD PRN PRN Reason: SALINE FLUSH Last Admin: 12/17/18 05:36 Dose: 10 ml Documented by: Tamsulosin HCl (Flomax) 0.4 mg PO DAILY@1730 [facility] Last Admin: 12/19/18 17:53 Dose: 0.4 mg Documented by: Trimethoprim/Sulfamethoxazole (Bactrim Ds) 1 tablet PO BIDCM [facility] Last Admin: 12/20/18 09:15 Dose: 1 tablet Documented by: Medical Necessity - Tobacco Use Smoking Status: Former smoker Route of nutrition/ use of supplements: [] Nutritional Intake: [] IV Site: [] Grove Catheter: [] - Assessment/Plan Antibiotics: [] Assessment/Plan: [] Active and Suspected Problems (Last Updated 07/25/18 @ 11:53 by Rosanne Álvarez) Deep vein thrombosis (DVT) of right lower extremity (Acute) Frequent falls (Acute) Skin tear of elbow without complication (Acute) Providencia bacteremia with esbl ecoli (+) ucx, suspected source is prostatitis. Ok for discharge on bactrim DS bid for 6 week total, stop date 01/27/19. Check bmp 12/21 and 12/23, then weekly after that. ID followup in 2 weeks. Reviewed with him potential side effects. Recommend urology followup. Tolerating bactrim well so far. Will follow
--- NOTE | 2018-12-20 10:59 | CASEMGMT ---
Patient was too weak to be discharged home yesterday. He has refused SNF for SW since Wednesday. Today he is considering SNF. LIANG met with patient. He said he really doesn't want to go somewhere, but he thinks he will have to. He still has the list of local SNF's. His will be here after bit and he would like SW to come back then. He asked about [facility]CU. LIANG told him they have beds available. He said that would be his first choice. LIANG told him that he would not be able to get treatment for his Cancer while in TCU nor would he be able to take Pomalyst (one of his Cancer meds). He verbalized understanding. Await patient's 's arrival. LIANG spoke with Tawanna in TCU and they do have beds available. She could take patient, but he will not be able to get Cancer treatment nor could he take Pomalyst. LIANG told her that LIANG already went over this with patient and he understands. Plan: Possibly TCU Audrey SIFUENTES MSW
--- NOTE | 2018-12-20 11:04 | PCM.EXTCARCO ---
- Diet 12/15/18 12:31 Diet: Regular Diet Food consistency:: Regular Liquid Consistency:: Regular/Thin - Routine Orders/Code Status Suppository Type: Dulcolax 10mg Suppository Frequency: Daily PRN Routine Lab Work: CBC - 1 week, BMP - tomorrow, then weekly Code Status: Full Code - Wound(s) left elbow Wound Type: Skin Tear Dressing Change: Adaptic right posterior thigh Wound Type: cluster of abrasions Dressing Change: Mepilex border 2nd and 5th toe of LLE Wound Type: Abrasion right miranda Wound Type: blood blister Dressing Change: Dry Sterile Dressing - Therapies Physical Therapy: Eval and Treat Occupational Therapy: Eval and Treat - Problem/Diagnosis (1) Prostatitis Status: Acute Current Visit: Yes (2) Urinary retention Status: Acute Current Visit: Yes (3) Deep vein thrombosis (DVT) of right lower extremity Status: Acute Current Visit: Yes (4) Frequent falls Status: Acute Current Visit: Yes (5) Gram-negative bacteremia Status: Acute Current Visit: Yes (6) Hyperlipidemia Status: Chronic Current Visit: Yes (7) Hypertension Status: Chronic Current Visit: Yes (8) Hypothyroidism Status: Chronic Current Visit: Yes (9) Multiple myeloma Status: Chronic Current Visit: Yes (10) Paroxysmal atrial fibrillation Status: Chronic Current Visit: Yes - Allergies/Procedures Done in Hospital Allergies/Adverse Reactions: Allergies adhesive tape Adverse Reaction (Verified 12/15/18 12:43) Other Procedures: 2-D Echocardiogram - Type of Care/Length of Stay Estimated LOS: Convalescent Care Less Than 30 days Type of Care Needed: Skilled Rehab Potential: Fair Prognosis: Fair - Additional Orders/Day of Discharge Additional Orders: melendez out and voiding trial in one week. Day of Discharge: 12/20/18 - Dietary and Speech Recommendations Dietitian Recommendations/Changes: Suggest diet change to Cardiac/low sodium. - Follow Up Care Primary Care Physician: Tiburcio Leger MD [Primary Care Provider] - Please follow up with your Primary Care Physician in: 1-2 weeks Please Follow Up With: Tiburcio Leger MD When: Oncology Please Follow Up With: Oncology When: as directed Please Follow Up With: Asad Davila MD When: 1 week Please Follow Up With: Ricki Ace MD When: 2 weeks
--- NOTE | 2018-12-20 13:50 | CASEMGMT ---
SW spoke with patient and his . SW introduced self to patient's . SW asked if she had any questions about going to TCU. SW explained Medicare coverage for SNF. SW also explained length of rehab depends on patient and how he/she improves. Patient said he is glad he agreed to go to TCU. SW let them know it would be today. They had no further questions. Plan: [facility] TCU under skilled level of care. Audrey SIFUENTES MSW
--- NOTE | 2018-12-20 15:08 | NURSING ---
Report called to LUDA Rinaldi in TCU.
[2018-12-21 15:27] LABS: Haptoglobin 280 mg/dL (34-200)
== END 2018-12-20 15:30 | disposition skilled nursing facility (03) | DRG 872 ==
LOC: ED 11:24 → PCU 11:33
PROVIDERS: Admitting Provider Hospitalist; Emergency Provider Emergency Medicine; Family Provider Family Medicine; PCP Family Medicine; Visit Provider Internal Medicine
DX: A41.9 Sepsis, unspecified organism (principal); I82.411 Acute embolism and thrombosis of right femoral vein; C90.00 Multiple myeloma not having achieved remission; I82.441 Acute embolism and thrombosis of right tibial vein; I82.431 Acute embolism and thrombosis of right popliteal vein; E03.9 Hypothyroidism, unspecified; I10 Essential (primary) hypertension; E78.5 Hyperlipidemia, unspecified; R29.6 Repeated falls; N41.9 Inflammatory disease of prostate, unspecified; E86.0 Dehydration; I48.0 Paroxysmal atrial fibrillation; B96.20 Unspecified Escherichia coli [E. coli] as the cause of diseases classified elsewhere; B96.89 Other specified bacterial agents as the cause of diseases classified elsewhere; I82.461 Acute embolism and thrombosis of right calf muscular vein; S50.312A Abrasion of left elbow, initial encounter; R53.81 Other malaise; R33.9 Retention of urine, unspecified; D69.6 Thrombocytopenia, unspecified; G89.4 Chronic pain syndrome; D64.9 Anemia, unspecified; S80.821A Blister (nonthermal), right lower leg, initial encounter; Z79.01 Long term (current) use of anticoagulants; Z87.891 Personal history of nicotine dependence
CPT/HCPCS: 36415; 51702; 71045; 80048; 80053; 81001; 82607; 82746; 83010; 83605; 83615; 83735; 84100; 84443; 85025; 85027; 85045; 85610; 85730; 87040; 87077; 87086; 87088; 87186; 87633; 93005; 93306; 93971; 97110; 97116; 97162; 97166; 97530; 97535; 97802; 99285; J7030; J7050; Q9957; A4216; C8929

== ENCOUNTER 2018-12-20 15:43 | Inpatient (IN) | payer MEDICARE, OTHER, SELFPAY ==
[2018-12-20 15:43] VITALS: BMI 32.8
[2018-12-20 16:00] VITALS: BP 103/65; PULSE 80; RESP 21; TEMP 37.1; O2SAT 97; BMI 32.5
--- NOTE | 2018-12-20 16:01 | NURSING ---
Addendum entered by Vasile Knight 12/20/18 16:01: err 154 Original Note: Arrived from PCU via bed at 1345
[2018-12-20] MEDS: Tamsulosin HCl 0.4 MG Capsule PO (17:33)
[2018-12-20] MEDS: Smz/Tmp Ds Tablet 1 TABLET PO (17:33)
[2018-12-20] MEDS: APIXABAN 5 MG TABLET PO (17:33)
[2018-12-20] MEDS: Atorvastatin Calcium 10 MG Tablet PO (19:36)
--- NOTE | 2018-12-20 21:16 | PCM.HP.STD ---
Problem List (1) Debility Status: Acute (2) Weakness Status: Acute (3) Hypotension Status: Acute (4) Atrial fibrillation Status: Chronic (5) Dehydration Status: Acute (6) Edema Status: Acute (7) BPH (benign prostatic hyperplasia) Status: Chronic (8) Bacteremia Status: Acute (9) MDRO (multiple drug resistant organisms) resistance Status: Acute (10) UTI due to extended-spectrum beta lactamase (ESBL) producing Escherichia coli Status: Acute (11) Urinary retention Status: Acute (12) Prostatitis Status: Acute (13) Multiple myeloma Status: Chronic (14) Hypothyroidism Status: Chronic (15) Hyperlipidemia Status: Chronic (16) Hypertension Status: Chronic (17) Deep vein thrombosis (DVT) of right lower extremity Status: Acute (18) Frequent falls Status: Acute History of Present Illness Date of Admission: 12/20/18 Chief Complaint: Here for rehabilitation, strengthening, prior to discharge home with . The patient is a 78 year old Male with below past medical history significant for multiple myeloma, presented to [facility] Emergency Department 12/15/2018 with fever. 12/15/2018 Doppler ultrasound of bilateral lower extremity showed extensive right lower extremity acute DVT. 12/15/2018 Chest X-ray left lung base atelectasis versus scarring. Sudden fever, weakness, falls, rigors. Short of breath, skin tear, right lower extremity swelling, redness. IV fluid bolus given for hypotension. 12/15/2018 Admit to Hospital. Lovenox twice daily for right lower extremity DVT. Patient developed right lower extremity DVT while on coumadin, hypercoagulable due to multiple myeloma. IV Fluids given for dehydration. PT/OT for frequent falls. 12/16/2018 Zosyn IV for urinary tract infection. Blood cultures growing gram negative yoselin. 12/17/2018 Off Lovenox, Off coumadin, start Eliquis for DVT/Atrial Fibrillation. Urine culture growing extended spectrum beta lactam resistant E. Coli. Blood culture grew Providencia rettgeri. 12/18/2018 Eliquis for DVT/Atrial fibrillation. IV Zosyn, IV Ertapenem for extended spectrum beta lactam resistant E. Coli. UTI. 12/19/2018 Dr. Ace noted Providencia, ESBL E. Coli bacteremia from prostatitis. Recommend Bactrim DS 1 tablet twice daily for 6 week total course thru 01/27/2019. 12/20/2018 Echo Left ventricular systolic function normal. EF 70% RVSP 41mm HG. Patient has BPH, urinary retention, Tamsulosin 0.4MG added, indwelling melendez catheter, failed voiding trial, continue indwelling melendez catheter for now. 12/20/2018 Admit to TCU with debility, here for rehabilitation, strengthening, prior to discharge home with . Past Medical History Past Medical History (Chronic Problems): Chronic Problems (Last Updated 07/25/18 @ 11:53 by Rosanne Álvarez) Atrial fibrillation (Chronic) BPH (benign prostatic hyperplasia) (Chronic) Multiple myeloma (Chronic) Hypothyroidism (Chronic) Paroxysmal atrial fibrillation (Chronic) Hyperlipidemia (Chronic) Hypertension (Chronic) Medical History: Medical History (Last Updated 07/25/18 @ 11:53 by Rosanne Álvarez) Cancer C80.1 Knee pain M25.569 Hypertension I10 Allergies adhesive tape Adverse Reaction (Verified 12/15/18 12:43) Other Home Medications: Ambulatory Orders Medication Instructions Recorded Amiodarone HCl 200 mg PO DAILY 11/02/13 Atorvastatin Calcium [Lipitor] 10 mg PO QHS 11/02/13 Docusate Sodium [Colace] 100 mg PO DAILY 07/15/16 Albuterol IH (ProAir) [Proair Hfa] 1 puff INHALATION Q6H PRN PRN 12/15/18 Furosemide [Lasix] 20 mg PO DAILY PRN 12/15/18 Levothyroxine Sodium 50 mcg PO DAILY 12/15/18 Polyethylene Glycol 3350 [Miralax] 17 gm PO DAILY PRN 12/15/18 Potassium Chloride 20 meq PO DAILY 12/15/18 Acetaminophen [Tylenol Tablet] 650 mg PO Q6H PRN PRN tab 12/19/18 Apixaban [Eliquis] 5 mg PO BID 12/20/18 Smz/Tmp Ds [Bactrim Ds] 1 tab PO BID 12/20/18 Tamsulosin HCl [Flomax] 0.4 mg PO DAILY@1730 12/20/18 Surgical History: total knee arthroplasty Psychiatric History: No pertinent psych hx Lives: Spouse/ Significant Other Smoking Status: Former smoker Tobacco Use: Cigars Alcohol: None Drugs: None - *Family History Maternal Family History: Family History (Last Updated 07/25/18 @ 11:53 by Rosanne Álvarez) Other Heart disease History Items: No pertinent history Paternal Family History: Family History (Last Updated 07/25/18 @ 11:53 by Rosanne Álvarez) Other Heart disease History Items: No pertinent history Review of Systems Constitutional: Denies: Chills, Fever, Weight Change HEENT: Denies: Head Aches, Sinus Congestion, Sinus Drainage Cardiovascular: Denies: Chest Pain, Palpitations Respiratory: Denies: Cough, Shortness of breath at rest, Sputum production Gastrointestinal: Denies: Abdominal Pain, Nausea, Vomiting Genitourinary: Denies: Dysuria Musculoskeletal: Denies: Joint Pain, Joint Tenderness Skin: Denies: Rash, Wounds Neurological: Denies: Numbness, Tingling, Focal weakness Psychiatric: Denies: Anxiety, Depression, Homicidal Ideations, Suicidal Ideations Hematologic/ Lymphatic: Denies: Easy Bruising, Easy Bleeding VTE Information - Inpt Only VTE Present on Admission: No VTE Mechan Device Prophylaxis: Knee High RAUL Hose VTE Pharm Prophylaxis ordered?: No Reason prophylaxis not ordered:: Treatment Not Indicated Patient Problems: Active and Suspected Problems (Last Updated 07/25/18 @ 11:53 by Rosanne Álvarez) Debility (Acute) Weakness (Acute) Hypotension (Acute) Dehydration (Acute) Edema (Acute) Bacteremia (Acute) UTI (urinary tract infection) (Acute) MDRO (multiple drug resistant organisms) resistance (Acute) UTI due to extended-spectrum beta lactamase (ESBL) producing Escherichia coli (Acute) - Physical Exam Vitals/I&O's: Vital Signs Temp Pulse Resp BP Pulse Ox 98.7 F 80 21 H 103/65 97 12/20/18 16:00 12/20/18 16:00 12/20/18 16:00 12/20/18 16:00 12/20/18 16:00 Oxygen Delivery Method Room Air Weight: 102.82 kg Body Mass Index (BMI) 32.5 Intake and Output for Last 24 Hours 12/18/18 12/19/18 12/20/18 23:59 23:59 23:59 Intake Total 240 / 240 Balance 240 / 240 General: Alert, Oriented x3, Cooperative HEENT: Atraumatic, PERRLA, EOMI, Normocephalic Neck: Supple, No JVD, Negative Carotid Bruits Lungs: Clear to auscultation, Normal air movement Cardiovascular: Regular rate, No murmurs Abdomen: Bowel Sounds Present, Soft, Non Tender, - - Indwelling melendez catheter. Extremities: Capillary Refill Less than 3 Seconds, Edema - Right lower extremity. Skin: No rashes, No breakdown Musculoskeletal: No Tenderness to Palpation of Joints or Extremities Neurological: Cranial nerves II-XII grossly intact Psych/Mental Status: Normal Affect, Appropriate Current Medications Acetaminophen (Tylenol) 650 mg PO Q6H PRN PRN PRN Reason: Pain Score 1-3/Temp > 100.7 F Albuterol Sulfate (Ventolin Hfa (Sp)) 1 puff INHALATION Q6H PRN PRN PRN Reason: SOB &/OR WHEEZING Amiodarone HCl (Cordarone) 200 mg PO DAILY [facility] Apixaban (Eliquis) 5 mg PO BID [facility] Last Admin: 12/20/18 17:33 Dose: 5 mg Documented by: Atorvastatin Calcium (Lipitor) 10 mg PO QHS [facility] Last Admin: 12/20/18 19:36 Dose: 10 mg Documented by: Docusate Sodium (Colace) 100 mg PO DAILY [facility] Furosemide (Lasix) 20 mg PO DAILY PRN PRN Reason: Swelling Influenza Virus Vaccine Quadrival (Flucelvax /Fluzone [id number]) 0.5 ml IM .ONCE ONE Stop: 12/21/18 10:01 Levothyroxine Sodium (Synthroid) 50 mcg PO DAILY [facility] Polyethylene Glycol (Miralax) 17 gm PO DAILY PRN PRN Reason: Constipation Potassium Chloride (K-Dur) 20 meq PO DAILYCM [facility] Tamsulosin HCl (Flomax) 0.4 mg PO DAILY@1730 [facility] Last Admin: 12/20/18 17:33 Dose: 0.4 mg Documented by: Trimethoprim/Sulfamethoxazole (Bactrim Ds) 1 tablet PO BIDCM [facility] Stop: 01/27/19 17:01 Last Admin: 12/20/18 17:33 Dose: 1 tablet Documented by: Tuberculin PPD (Tubersol, Aplisol, Ppd) 5 tu ID X1 ONE Stop: 12/21/18 10:01 Tuberculin PPD (Tubersol, Aplisol, Ppd) 5 tu ID X1 ONE Stop: 12/28/18 10:01 Assessment/Plan All Active Problems (Last Updated 07/25/18 @ 11:53 by Rosanne Álvarez) Gram-negative bacteremia (Acute) Urinary retention (Acute) Prostatitis (Acute) Debility (Acute) Weakness (Acute) Hypotension (Acute) Dehydration (Acute) Edema (Acute) Bacteremia (Acute) UTI (urinary tract infection) (Acute) MDRO (multiple drug resistant organisms) resistance (Acute) UTI due to extended-spectrum beta lactamase (ESBL) producing Escherichia coli (Acute) Deep vein thrombosis (DVT) of right lower extremity (Acute) Frequent falls (Acute) Skin tear of elbow without complication (Acute) 78 year old male with below past medical history hospitalized for bacteremia secondary to ESBL E. Coli, Providencia from prostatitis, complicated by right lower extremity DVT recalcitrant to coumadin therapy, admitted to TCU with debility, here for rehabilitation, strengthening, prior to discharge home with . Debility - PT/OT. Pain - Tylenol 1000MG Q6H PRN pain (1-3) Bowel - Miralax 17GM daily, Senna/colace 1 tablet BID, Dulcolax 10MG daily PRN. Adult immunization - Flushot given, Administer Prevnar 13 and/or Pneumovax 23 as necessary.. DVT prophylaxis - Not necessary, already on Eliquis. Shortness of breath - Albuterol MDI 1 puff Q6H PRN. Atrial Fibrillation - Amiodarone 200MG daily, Eliquis 5MG BID. Right lower extremity DVT - Eliquis 5MG BID, I have personally seen may Eliquis failures for treating difficult to treat DVT, if there is no improvement with swelling, consider repeat Doppler ultrasound to see if there is improvement in DVT, if not, consider Xarelto. Hyperlipidemia - Atorvastatin 10MG QHS. Edema - Lasix 20MG daily PRN. Hypothyroidism - Levothyroxine 50MCG daily. Hypokalemia - K-Dur 20MEQ daily. ESBL E. Coli/Providencia bacteremia - Bactrim DS 1 tablet BID thru 01/27/2019, consult Dr. Ace to continue to follow resident on TCU. BPH - Tamsulosin 0.4MG daily. Urinary retention - indwelling melendez catheter, discontinue melendez catheter on TCU day #3, voiding trials.
--- NOTE | 2018-12-21 04:21 | NURSING ---
Pt remains in contact isolation during d/t ESBL in urine. All care and tx provided in room.
[2018-12-21] MEDS: Amiodarone 200 MG Tablet PO (05:44)
[2018-12-21] MEDS: Levothyroxine 50 MCG Tablet PO (05:44)
[2018-12-21] MEDS: APIXABAN 5 MG TABLET PO ×2 (05:44→17:06)
[2018-12-21] MEDS: Polyethylene Glycol 3350 17 GM PACKET PO (05:45)
[2018-12-21] MEDS: Senna/Docusate Sodium 1 Tablet PO ×2 (05:45→17:06)
[2018-12-21] MEDS: Menthol/Lanolin/Calamine/Znox 113 GM Tube 1 APPLIC TOPICAL ×2 (05:48→20:04)
[2018-12-21 06:00] LABS: Absolute Lymphocyte Count 0.64 X10^3/uL (0.83-4.51); Absolute Neutrophil Count 3.3 X10^3/uL (2.0-7.7); Basophil# 0.05 X10^3/uL; Eosinophil# 0.57 X10^3/uL; Eosinophils% 11.6 % (0-5); Hematocrit 31.7 % (40-54); Hemoglobin 10.1 g/dL (13.0-16.5); Lymphocyte # 0.64 X10^3/ul (4.0); Lymphocyte % 13.1 % (19-41); Mean Corp Hgb Conc 31.9 g/dL (32-36); Mean Corpuscular Hgb 32.8 pg (27.0-32.0); Mean Corpuscular Volume 102.9 fL (80-94); Monocyte% 6.1 % (0-10); NRBC Flagged by Analyzer 0 % (0-5); Neutrophil # 3.27 X10^3/uL (2.7-7.7); Neutrophil % 66.8 % (47-70); Platelet Count 185 K/mm3 (150-450); RBC Distribution Width CV 16.3 % (11.6-14.6); RBC Distribution Width SD 61.6 fl (35.1-43.9); Red Blood Count 3.08 M/mm3 (4.6-6.2); White Blood Count 4.9 K/mm3 (4.4-11.0)
[2018-12-21 06:26] LABS: Anion Gap 7 (5-15); BUN 20 mg/dL (7-18); BUN/Creat Ratio 19.2 RATIO (10-20); Chloride 108 mmol/L (98-107); Creatinine, Serum 1.04 mg/dL (0.70-1.30); EST Glomerular Filtration Rate 73 mL/min (>60); Est Glom Filt Rate - Afr Amer 88 mL/min (>60); Estimated Creatinine Clearance 58.49 ml/min; Glucose 102 mg/dL (74-106); Potassium 3.7 mmol/L (3.5-5.1); Sodium Level 140 mmol/L (136-145)
[2018-12-21] MEDS: Smz/Tmp Ds Tablet 1 TABLET PO ×2 (08:45→17:06)
[2018-12-21] MEDS: Tuberculin,Purif.prot.deriv. 50 TU/ML Vial 5 ML ID (10:22)
--- NOTE | 2018-12-21 12:57 | PCM.PN.ID ---
Patient Problems: Active and Suspected Problems (Last Updated 07/25/18 @ 11:53 by Rosanne Álvarez) Debility (Acute) Weakness (Acute) Hypotension (Acute) Dehydration (Acute) Edema (Acute) Bacteremia (Acute) UTI (urinary tract infection) (Acute) MDRO (multiple drug resistant organisms) resistance (Acute) UTI due to extended-spectrum beta lactamase (ESBL) producing Escherichia coli (Acute) Subjective: Feeling better, no fever, no abd pain, no rash, no n/v/d. Sees urology tomorrow. - Physical Exam Vitals/I&O's: Vital Signs Temp Pulse Resp BP Pulse Ox 98.7 F 80 21 H 103/65 97 12/20/18 16:00 12/20/18 16:00 12/20/18 16:00 12/20/18 16:00 12/20/18 16:00 Oxygen Delivery Method Room Air Weight: 102.82 kg Body Mass Index (BMI) 32.5 Intake and Output for Last 24 Hours 12/19/18 12/20/18 12/21/18 23:59 23:59 23:59 Intake Total 240 / 240 240 / 240 Output Total 200 / 200 Balance 40 / 40 240 / 240 General: Alert, Cooperative, No apparent distress Lungs: Clear to auscultation, Normal air movement Cardiovascular: Regular rate, Regular Rhythm, Murmur Abdomen: Soft, Non Tender, Non-Distended Skin: No rashes Laboratory Results 12/21/18 05:05: WBC 4.9, RBC 3.08 L, Hgb 10.1 L, Hct 31.7 L, MCV 102.9 H, MCH 32.8 H, MCHC 31.9 L, RDW Std Deviation 61.6 H, RDW Coeff of Chery 16.3 H, Plt Count 185, MPV 11.0, Immature Gran % (Auto) 1.400 H, Neut % (Auto) 66.8, Lymph % (Auto) 13.1 L, Dupage % (Auto) 6.1, Eos % (Auto) 11.6 H, Baso % (Auto) 1.0, Absolute Neuts (auto) 3.3, Absolute Lymphs (auto) 0.64 L, Nucleated RBC % 0 12/21/18 05:05: Sodium 140, Potassium 3.7, Chloride 108 H, Carbon Dioxide 25.0, Anion Gap 7, BUN 20 H, Creatinine 1.04, Estim Creat Clear Calc 58.49, Est GFR (MDRD) Af Amer 88, Est GFR (MDRD) Non-Af 73, BUN/Creatinine Ratio 19.2, Glucose 102, Calcium 8.0 L Current Medications Acetaminophen (Tylenol) 1,000 mg PO Q6H PRN PRN PRN Reason: Pain Score 1-3/10 Albuterol Sulfate (Ventolin Hfa (Sp)) 1 puff INHALATION Q6H PRN PRN PRN Reason: SOB &/OR WHEEZING Amiodarone HCl (Cordarone) 200 mg PO DAILY [facility] Last Admin: 12/21/18 05:44 Dose: 200 mg Documented by: Apixaban (Eliquis) 5 mg PO BID [facility] Last Admin: 12/21/18 05:44 Dose: 5 mg Documented by: Atorvastatin Calcium (Lipitor) 10 mg PO QHS [facility] Last Admin: 12/20/18 19:36 Dose: 10 mg Documented by: Bisacodyl (Dulcolax) 10 mg PO DAILY PRN PRN Reason: Constipation Calamine/Phenol (Calmoseptine Ointment) 1 applic TOPICAL 0600,2200 [facility]; Protocol Last Admin: 12/21/18 05:48 Dose: 1 applicatio Documented by: Furosemide (Lasix) 20 mg PO DAILY PRN PRN Reason: Swelling Levothyroxine Sodium (Synthroid) 50 mcg PO DAILY [facility] Last Admin: 12/21/18 05:44 Dose: 50 mcg Documented by: Multi-Ingredient Cream (Eucerin) 1 applic TOPICAL QHS [facility]; Protocol Nutritional Formula (Lactose Free) (Ensure Enlive) 120 ml PO 4X/DAY [facility] Last Admin: 12/21/18 11:21 Dose: 120 ml Documented by: Polyethylene Glycol (Miralax) 17 gm PO DAILY [facility] Last Admin: 12/21/18 05:45 Dose: 17 gm Documented by: Potassium Chloride (K-Dur) 20 meq PO DAILYCM [facility] Last Admin: 12/21/18 08:45 Dose: 20 meq Documented by: Senna/Docusate Sodium (Senokot-S, Nancy-Colace) 1 tablet PO BID [facility] Last Admin: 12/21/18 05:45 Dose: 1 tablet Documented by: Tamsulosin HCl (Flomax) 0.4 mg PO DAILY@1730 [facility] Last Admin: 12/20/18 17:33 Dose: 0.4 mg Documented by: Trimethoprim/[facility]ulf[facility] ([facility]s) [facility] Stop: 01/27/19 17:01 Last Admin: 12/21/18 08:45 Dose: 1 tablet Documented by: Tuberculin PPD (Tubersol, Aplisol, Ppd) 5 tu ID [id number] ONE Stop: 12/28/18 10:01 Medical Necessity - Tobacco Use Smoking Status: Former smoker Tobacco Use: Cigars Route of nutrition/ use of supplements: [] Nutritional Intake: [] IV Site: [] Grove Catheter: [] - Assessment/Plan Antibiotics: [] Assessment/Plan: [] Active and Suspected Problems (Last Updated 07/25/18 @ 11:53 by Rosanne Álvarez) Debility (Acute) Weakness (Acute) Hypotension (Acute) Dehydration (Acute) Edema (Acute) Bacteremia (Acute) UTI (urinary tract infection) (Acute) MDRO (multiple drug resistant organisms) resistance (Acute) UTI due to extended-spectrum beta lactamase (ESBL) producing Escherichia coli (Acute) Providencia bacteremia with esbl ecoli (+) ucx, suspected source is prostatitis. Cont on bactrim DS bid for 6 week total, stop date 01/27/19. Cr and K stable on labs this AM. Tolerating bactrim well so far. Urology appt tomorrow. Grove still in place. Will follow
[2018-12-21 15:53] VITALS: BP 115/65; PULSE 80; RESP 20; TEMP 36.4; O2SAT 96
[2018-12-21] MEDS: Tamsulosin HCl 0.4 MG Capsule PO (17:06)
--- NOTE | 2018-12-21 17:29 | NURSING ---
pt remains in isolation, all treatments and care provided in pt room
[2018-12-21] MEDS: Atorvastatin Calcium 10 MG Tablet PO (20:02)
--- NOTE | 2018-12-21 20:11 | NURSING ---
Pt remains in contact isolation during d/t ESBL in urine. All care and tx provided in room.
[2018-12-22] MEDS: APIXABAN 5 MG TABLET PO ×2 (05:53→16:43)
[2018-12-22] MEDS: Senna/Docusate Sodium 1 Tablet PO ×2 (05:53→16:43)
[2018-12-22] MEDS: Menthol/Lanolin/Calamine/Znox 113 GM Tube 1 APPLIC TOPICAL ×2 (05:53→20:08)
[2018-12-22] MEDS: Polyethylene Glycol 3350 17 GM PACKET PO (05:53)
[2018-12-22] MEDS: Amiodarone 200 MG Tablet PO (05:53)
[2018-12-22] MEDS: Levothyroxine 50 MCG Tablet PO (05:53)
--- NOTE | 2018-12-22 07:32 | NURSING ---
PT IN PRECAUTIONS FOR ESBL IN URINE. ALL CARE GIVEN IN ROOM.
[2018-12-22] MEDS: Smz/Tmp Ds Tablet 1 TABLET PO ×2 (07:33→16:43)
--- NOTE | 2018-12-22 09:42 | NURSING ---
pt was taken down to urology appt this AM, but urology office reported that they cannot see pt while pt hospitalized, Dr Davila will be up to see pt today.
[2018-12-22 15:18] VITALS: BP 105/65; PULSE 65; RESP 19; TEMP 37.1; O2SAT 97
[2018-12-22] MEDS: Tamsulosin HCl 0.4 MG Capsule PO (16:44)
[2018-12-22] MEDS: Atorvastatin Calcium 10 MG Tablet PO (20:07)
[2018-12-23] MEDS: Menthol/Lanolin/Calamine/Znox 113 GM Tube 1 APPLIC TOPICAL ×2 (06:15→20:56)
[2018-12-23] MEDS: Polyethylene Glycol 3350 17 GM PACKET PO (06:15)
[2018-12-23] MEDS: Levothyroxine 50 MCG Tablet PO (06:16)
[2018-12-23] MEDS: Amiodarone 200 MG Tablet PO (06:16)
[2018-12-23] MEDS: Senna/Docusate Sodium 1 Tablet PO ×2 (06:16→17:54)
[2018-12-23] MEDS: APIXABAN 5 MG TABLET PO ×2 (06:16→17:54)
[2018-12-23] MEDS: Smz/Tmp Ds Tablet 1 TABLET PO ×2 (09:57→17:54)
--- NOTE | 2018-12-23 10:16 | PCM.PN.RX ---
<India Worley - Last Filed: 12/23/18 10:16> Progress Note - Pharmacy Subjective: TCU Admission Objective: Allergies adhesive tape Adverse Reaction (Verified 12/15/18 12:43) Other Current Medications Generic Name Dose Route Start Last Admin Trade Name Freq PRN Reason Stop Dose Admin Acetaminophen 1,000 mg 12/20/18 21:39 Tylenol PO Q6H PRN PRN Pain Score 1-3/10 Albuterol Sulfate 1 puff 12/20/18 16:08 Ventolin Hfa (Sp) INHALATION Q6H PRN PRN SOB &/OR WHEEZING Amiodarone HCl 200 mg 12/21/18 06:00 12/23/18 06:16 Cordarone PO 200 mg DAILY [facility] Administration Apixaban 5 mg 12/20/18 18:00 12/23/18 06:16 Eliquis PO 5 mg BID [facility] Administration Atorvastatin Calcium 10 mg 12/20/18 22:00 12/22/18 20:07 Lipitor PO 10 mg QHS [facility] Administration Bisacodyl 10 mg 12/20/18 21:38 Dulcolax PO DAILY PRN Constipation Calamine/Phenol 1 applic 12/21/18 06:00 12/23/18 06:15 Calmoseptine Ointment TOPICAL 1 applicatio 0600,2200 [facility] Administration Protocol Furosemide 20 mg 12/20/18 16:08 Lasix PO DAILY PRN Swelling Levothyroxine Sodium 50 mcg 12/21/18 06:00 12/23/18 06:16 Synthroid PO 50 mcg DAILY [facility] Administration Multi-Ingredient Cream 1 applic 12/21/18 22:00 12/22/18 20:07 Eucerin TOPICAL 1 applicatio QHS [facility] Administration Protocol Nutritional Formula (Lactose Free) 120 ml 12/21/18 06:00 12/23/18 06:16 Ensure Enlive PO 120 ml 4X/DAY [facility] Administration Polyethylene Glycol 17 gm 12/21/18 06:00 12/23/18 06:15 Miralax PO 17 gm DAILY [facility] Administration Potassium Chloride 20 meq 12/21/18 08:00 12/23/18 09:57 K-Dur PO 20 meq DAILYCM [facility] Administration Senna/Docusate Sodium 1 tablet 12/21/18 06:00 12/23/18 06:16 Senokot-S, Nancy-Colace PO 1 tablet BID [facility] Administration Tamsulosin HCl 0.4 mg 12/20/18 17:30 12/22/18 16:44 Flomax PO 0.4 mg DAILY@1730 [facility] Administration Trimethoprim/Sulfamethoxazole 1 tablet 12/20/18 17:00 12/23/18 09:57 Bactrim Ds PO 01/27/19 17:01 1 tablet BIDCM [facility] Administration Tuberculin PPD 5 tu 12/28/18 10:00 Tubersol, Aplisol, Ppd ID 12/28/18 10:01 X1 ONE Problem List (Last Updated 07/25/18 @ 11:53 by Rosanne Álvarez) Debility (Acute) Weakness (Acute) Hypotension (Acute) Atrial fibrillation (Chronic) Dehydration (Acute) Edema (Acute) BPH (benign prostatic hyperplasia) (Chronic) Bacteremia (Acute) UTI (urinary tract infection) (Acute) MDRO (multiple drug resistant organisms) resistance (Acute) UTI due to extended-spectrum beta lactamase (ESBL) producing Escherichia coli (Acute) Vital Signs Temp Pulse Resp BP Pulse Ox 98.7 F 65 19 H 105/65 97 12/22/18 15:18 12/22/18 15:18 12/22/18 15:18 12/22/18 15:18 12/22/18 15:18 Oxygen Delivery Method Room Air Weight: 102.82 kg Body Mass Index (BMI) 32.5 Sodium 140 mmol/L (136-145) 12/21/18 05:05 Potassium 3.7 mmol/L (3.5-5.1) 12/21/18 05:05 Chloride 108 mmol/L (98-107) H 12/21/18 05:05 Carbon Dioxide 25.0 mmol/L (21.0-32.0) 12/21/18 05:05 Anion Gap 7 (5-15) 12/21/18 05:05 BUN 20 mg/dL (7-18) H 12/21/18 05:05 Creatinine 1.04 mg/dL (0.70-1.30) 12/21/18 05:05 Est GFR (MDRD) Af Amer 88 mL/min (>60) 12/21/18 05:05 Est GFR (MDRD) Non-Af 73 mL/min (>60) 12/21/18 05:05 BUN/Creatinine Ratio 19.2 RATIO (10-20) 12/21/18 05:05 Glucose 102 mg/dL (74-106) 12/21/18 05:05 Assessment/Plan: *1. Pain: acetaminophen 1000mg PO Q8H PRN pain (1-3/10). Please continue to monitor for pain. If patient has pain on scale 4-10, please consider changing scale from 1-3/10 to 1-10/10. Thanks. 2. ESBL E coli/Providencia bacteremia: sulfamethoxazole/trimethoprim DS 1T PO BID thru 01/27/19. Patient is also on potassium, please continue to monitor potassium levels, S/S of infection and diarrhea. 3. Atrial fibrillation/Lower extremity DVT: amiodarone 200mg PO daily, apixaban 5mg PO BID. Please continue to monitor electrolytes, QTc, S/S of bleeding and renal function. Please see physician note regarding apixaban for DVT treatment. *4. Hyperlipidemia: atorvastatin 10mg PO QHS. I did not see a lipid panel in the patient's chart. Please consider ordering a lipid panel now and then annually as clinically appropriate. LFTs WNL and appropriate for continued use. Please continue to monitor for muscle pain. Thanks. 5. Edema: furosemide 20mg PO daily PRN swelling. Please continue to monitor for swelling. 6. Hypothyroidism: levothyroxine 50mcg PO daily. Recent TSH in chart. Please continue to monitor for S/S hypo/hyperthyroidism. 7. Hypokalemia: potassium chloride 20mEq PO DAILYCM. Please continue to monitor potassium levels. 8. Shortness of breath: albuterol sulfate MDI 1 inhalation Q6H PRN SOB/WHEEZING. Please continue to monitor for SOB. 9. BPH: tamsulosin 0.4mg PO daily. Please continue to monitor for S/S BPH. Psychotropic Medications: None Unnecessary Medications: None Bowel Regimen: Miralax 17gm PO daily, senna/docusate 1T PO BID, bisacodyl 10mg PO daily PRN constipation. Please continue to monitor for constipation and PRN use. Date of Note:: 12/23/18 - Provider Comments Provider responsibility: Provider responsible to enter orders to implement recommendations <Colten Esquivel Chi - Last Filed: 12/23/18 13:47> Progress Note - Pharmacy Subjective: [] Objective: Allergies adhesive tape Adverse Reaction (Verified 12/15/18 12:43) Other Current Medications Generic Name Dose Route Start Last Admin Trade Name Freq PRN Reason Stop Dose Admin Acetaminophen 1,000 mg 12/20/18 21:39 Tylenol PO Q6H PRN PRN Pain Score 1-3/10 Albuterol Sulfate 1 puff 12/20/18 16:08 Ventolin Hfa (Sp) INHALATION Q6H PRN PRN SOB &/OR WHEEZING Amiodarone HCl 200 mg 12/21/18 06:00 12/23/18 06:16 Cordarone PO 200 mg DAILY [facility] Administration Apixaban 5 mg 12/20/18 18:00 12/23/18 06:16 Eliquis PO 5 mg BID [facility] Administration Atorvastatin Calcium 10 mg 12/20/18 22:00 12/22/18 20:07 Lipitor PO 10 mg QHS [facility] Administration Bisacodyl 10 mg 12/20/18 21:38 Dulcolax PO DAILY PRN Constipation Calamine/Phenol 1 applic 12/21/18 06:00 12/23/18 06:15 Calmoseptine Ointment TOPICAL 1 applicatio 0600,2200 [facility] Administration Protocol Finasteride 5 mg 12/24/18 06:00 Proscar PO DAILY [facility] Furosemide 20 mg 12/20/18 16:08 Lasix PO DAILY PRN Swelling Levothyroxine Sodium 50 mcg 12/21/18 06:00 12/23/18 06:16 Synthroid PO 50 mcg DAILY [facility] Administration Multi-Ingredient Cream 1 applic 12/21/18 22:00 12/22/18 20:07 Eucerin TOPICAL 1 applicatio QHS [facility] Administration Protocol Nutritional Formula (Lactose Free) 120 ml 12/21/18 06:00 12/23/18 12:07 Ensure Enlive PO 120 ml 4X/DAY [facility] Administration Polyethylene Glycol 17 gm 12/21/18 06:00 12/23/18 06:15 Miralax PO 17 gm DAILY [facility] Administration Potassium Chloride 20 meq 12/21/18 08:00 12/23/18 09:57 K-Dur PO 20 meq DAILYCM [facility] Administration Senna/Docusate Sodium 1 tablet 12/21/18 06:00 12/23/18 06:16 Senokot-S, Nancy-Colace PO 1 tablet BID [facility] Administration Tamsulosin HCl 0.4 mg 12/23/18 17:30 Flomax PO BID@0830,1730 [facility] Trimethoprim/Sulfamethoxazole 1 tablet 12/20/18 17:00 12/23/18 09:57 Bactrim Ds PO 01/27/19 17:01 1 tablet BIDCM [facility] Administration Tuberculin PPD 5 tu 12/28/18 10:00 Tubersol, Aplisol, Ppd ID 12/28/18 10:01 X1 ONE Problem List (Last Reviewed 12/23/18 @ 11:30 by Asad Davila MD) Debility (Acute) Weakness (Acute) Hypotension (Acute) Atrial fibrillation (Chronic) Dehydration (Acute) Edema (Acute) BPH (benign prostatic hyperplasia) (Chronic) Bacteremia (Acute) UTI (urinary tract infection) (Acute) MDRO (multiple drug resistant organisms) resistance (Acute) UTI due to extended-spectrum beta lactamase (ESBL) producing Escherichia coli (Acute) BPH w/o urinary obs/LUTS (Acute) Vital Signs Temp Pulse Resp BP Pulse Ox 98.7 F 65 19 H 105/65 97 12/22/18 15:18 12/22/18 15:18 12/22/18 15:18 12/22/18 15:18 12/22/18 15:18 Oxygen Delivery Method Room Air Weight: 102.82 kg Body Mass Index (BMI) 32.5 Sodium 140 mmol/L (136-145) 12/21/18 05:05 Potassium 3.7 mmol/L (3.5-5.1) 12/21/18 05:05 Chloride 108 mmol/L (98-107) H 12/21/18 05:05 Carbon Dioxide 25.0 mmol/L (21.0-32.0) 12/21/18 05:05 Anion Gap 7 (5-15) 12/21/18 05:05 BUN 20 mg/dL (7-18) H 12/21/18 05:05 Creatinine 1.04 mg/dL (0.70-1.30) 12/21/18 05:05 Est GFR (MDRD) Af Amer 88 mL/min (>60) 12/21/18 05:05 Est GFR (MDRD) Non-Af 73 mL/min (>60) 12/21/18 05:05 BUN/Creatinine Ratio 19.2 RATIO (10-20) 12/21/18 05:05 Glucose 102 mg/dL (74-106) 12/21/18 05:05 Assessment/Plan: Psychotropic Medications: Unnecessary Medications: Bowel Regimen: - Provider Comments Provider responsibility: Provider responsible to enter orders to implement recommendations Provider Comments to Recommendations by Pharmacy: Agree
--- NOTE | 2018-12-23 11:29 | PCM.CONS.U ---
Problem List (1) BPH w/o urinary obs/LUTS Status: Acute Reason for Consult Date of Consultation: 12/23/18 Reason for Consultation: BPH with retention of urine History of Present Illness: The patient is a 78 year old male who was having difficulty at home and he fell. Presented to the hospital and now is in transitional care unit for strengthening and improvement. Catheter was removed it was not able to urinate so a catheter was replaced. He does report having frequent urination and difficulty going to the bathroom and difficulty with emptying his bladder before this happened. He is currently taking Flomax 0.4 mg daily. He did fail trial of void. Denies having prostate cancer. No history of prostate surgery or bladder surgery. I do not think he seen a urologist before he could not remember. Past Medical History Past Medical History (Chronic Problems): Chronic Problems (Last Updated 07/25/18 @ 11:53 by Rosanne Álvarez) Atrial fibrillation (Chronic) BPH (benign prostatic hyperplasia) (Chronic) Multiple myeloma (Chronic) Hypothyroidism (Chronic) Paroxysmal atrial fibrillation (Chronic) Hyperlipidemia (Chronic) Hypertension (Chronic) Medical History: Medical History (Last Reviewed 12/23/18 @ 11:30 by Asad Davila MD) Cancer C80.1 Knee pain M25.569 Hypertension I10 Allergies adhesive tape Adverse Reaction (Verified 12/15/18 12:43) Other Home Medications: Ambulatory Orders Medication Instructions Recorded Amiodarone HCl 200 mg PO DAILY 11/02/13 Atorvastatin Calcium [Lipitor] 10 mg PO QHS 11/02/13 Docusate Sodium [Colace] 100 mg PO DAILY 07/15/16 Albuterol IH (ProAir) [Proair Hfa] 1 puff INHALATION Q6H PRN PRN 12/15/18 Furosemide [Lasix] 20 mg PO DAILY PRN 12/15/18 Levothyroxine Sodium 50 mcg PO DAILY 12/15/18 Polyethylene Glycol 3350 [Miralax] 17 gm PO DAILY PRN 12/15/18 Potassium Chloride 20 meq PO DAILY 12/15/18 Acetaminophen [Tylenol Tablet] 650 mg PO Q6H PRN PRN tab 12/19/18 Apixaban [Eliquis] 5 mg PO BID 12/20/18 Smz/Tmp Ds [Bactrim Ds] 1 tab PO BID 12/20/18 Tamsulosin HCl [Flomax] 0.4 mg PO DAILY@1730 12/20/18 Surgical History: total knee arthroplasty Psychiatric History: No pertinent psych hx Lives: Spouse/ Significant Other Smoking Status: Former smoker Tobacco Use: Cigars Alcohol: None Drugs: None - *Family History Maternal Family History: Family History (Last Updated 07/25/18 @ 11:53 by Rosanne Álvarez) Other Heart disease History Items: No pertinent history Paternal Family History: Family History (Last Updated 07/25/18 @ 11:53 by Rosanne Álvarez) Other Heart disease History Items: No pertinent history Review of Systems Constitutional: Denies: Chills, Fever, Weight Change HEENT: Denies: Head Aches, Sinus Congestion, Sinus Drainage Cardiovascular: Denies: Chest Pain, Palpitations Respiratory: Denies: Cough, Shortness of breath at rest, Sputum production Gastrointestinal: Denies: Abdominal Pain, Nausea, Vomiting Genitourinary: Reports: Dysuria, Retention Musculoskeletal: Denies: Joint Pain, Joint Tenderness Skin: Denies: Rash, Wounds Neurological: Denies: Numbness, Tingling, Focal weakness Psychiatric: Denies: Anxiety, Depression, Homicidal Ideations, Suicidal Ideations Hematologic/ Lymphatic: Denies: Easy Bruising, Easy Bleeding Physical Exam - Physical Exam Vital Signs Temp 98.7 F 12/22/18 15:18 Pulse 65 12/22/18 15:18 Resp 19 H 12/22/18 15:18 BP 105/65 12/22/18 15:18 Pulse Ox 97 12/22/18 15:18 Intake & Output 12/21/18 12/22/18 12/23/18 23:59 23:59 23:59 Intake Total 600 / 600 950 / 950 360 / 360 Output Total 1200 / 1200 1550 / 1550 Balance -600 / -600 -600 / -600 360 / 360 Weight: 102.82 kg Intake: Oral 600 / 600 950 / 950 360 / 360 Output: Urine 1200 / 1200 900 / 900 #2 Urine 650 / 650 General: Alert, Oriented x3 HEENT: Atraumatic Oral: Moist Mucosa Neck: Supple Lungs: Normal air movement Abdomen: Soft, Obese Rectal: Exam deferred Assessment/Plan All Active Problems (Last Updated 07/25/18 @ 11:53 by Rosanne Álvarez) Gram-negative bacteremia (Acute) Urinary retention (Acute) Prostatitis (Acute) Debility (Acute) Weakness (Acute) Hypotension (Acute) Dehydration (Acute) Edema (Acute) Bacteremia (Acute) UTI (urinary tract infection) (Acute) MDRO (multiple drug resistant organisms) resistance (Acute) UTI due to extended-spectrum beta lactamase (ESBL) producing Escherichia coli (Acute) BPH w/o urinary obs/LUTS (Acute) Deep vein thrombosis (DVT) of right lower extremity (Acute) Frequent falls (Acute) Skin tear of elbow without complication (Acute) 78-year-old male with history of BPH and a retention of urine failed trial void. Recommend we increase the Flomax 0.4 mg twice daily, I also will start him on Proscar 5 mg daily. I think we can take out the catheter in about 3 days for another voiding trial. If he fails that voiding trial then he may need to go home with a catheter and follow-up in the office once he is discharged to consider cystoscopy and consider surgical intervention to relieve obstruction and retention of urine if you any questions please call me.
[2018-12-23 15:50] VITALS: BP 108/53; PULSE 87; RESP 16; TEMP 36.8; O2SAT 97
[2018-12-23] MEDS: Tamsulosin HCl 0.4 MG Capsule PO (17:54)
[2018-12-23] MEDS: Atorvastatin Calcium 10 MG Tablet PO (20:57)
[2018-12-24] MEDS: Polyethylene Glycol 3350 17 GM PACKET PO (05:59)
[2018-12-24] MEDS: Amiodarone 200 MG Tablet PO (05:59)
[2018-12-24] MEDS: APIXABAN 5 MG TABLET PO ×2 (05:59→17:23)
[2018-12-24] MEDS: Senna/Docusate Sodium 1 Tablet PO ×2 (05:59→17:23)
[2018-12-24] MEDS: Levothyroxine 50 MCG Tablet PO (05:59)
[2018-12-24] MEDS: Menthol/Lanolin/Calamine/Znox 113 GM Tube 1 APPLIC TOPICAL ×2 (06:00→20:57)
[2018-12-24] MEDS: Finasteride 5 MG Tablet PO (06:00)
[2018-12-24] MEDS: Tamsulosin HCl 0.4 MG Capsule PO ×2 (09:05→17:23)
[2018-12-24] MEDS: Smz/Tmp Ds Tablet 1 TABLET PO ×2 (09:05→17:23)
[2018-12-24 15:20] VITALS: BP 117/69; PULSE 93; RESP 16; TEMP 36.9; O2SAT 96
[2018-12-24] MEDS: Atorvastatin Calcium 10 MG Tablet PO (20:55)
[2018-12-25] MEDS: Menthol/Lanolin/Calamine/Znox 113 GM Tube 1 APPLIC TOPICAL ×2 (05:05→19:52)
[2018-12-25] MEDS: APIXABAN 5 MG TABLET PO ×2 (05:05→17:03)
[2018-12-25] MEDS: Levothyroxine 50 MCG Tablet PO (05:06)
[2018-12-25] MEDS: Senna/Docusate Sodium 1 Tablet PO ×2 (05:06→17:03)
[2018-12-25] MEDS: Finasteride 5 MG Tablet PO (05:06)
[2018-12-25] MEDS: Amiodarone 200 MG Tablet PO (05:06)
[2018-12-25 05:10] VITALS: BP 109/61; PULSE 74
[2018-12-25] MEDS: Smz/Tmp Ds Tablet 1 TABLET PO ×2 (08:55→17:03)
[2018-12-25] MEDS: Tamsulosin HCl 0.4 MG Capsule PO ×2 (08:55→17:03)
[2018-12-25 15:34] VITALS: BP 118/71; PULSE 84; RESP 17; TEMP 36.9; O2SAT 98
[2018-12-25] MEDS: Atorvastatin Calcium 10 MG Tablet PO (19:51)
[2018-12-26] MEDS: Finasteride 5 MG Tablet PO (05:54)
[2018-12-26] MEDS: Menthol/Lanolin/Calamine/Znox 113 GM Tube 1 APPLIC TOPICAL ×2 (05:54→20:37)
[2018-12-26] MEDS: APIXABAN 5 MG TABLET PO ×2 (05:54→17:39)
[2018-12-26] MEDS: Polyethylene Glycol 3350 17 GM PACKET PO (05:54)
[2018-12-26] MEDS: Amiodarone 200 MG Tablet PO (05:54)
[2018-12-26] MEDS: Levothyroxine 50 MCG Tablet PO (05:54)
[2018-12-26] MEDS: Senna/Docusate Sodium 1 Tablet PO ×2 (05:54→17:40)
--- NOTE | 2018-12-26 06:00 | NURSING ---
F/C removed at 0600. Pt tolerated well. BladderScan to begin.
[2018-12-26] MEDS: Smz/Tmp Ds Tablet 1 TABLET PO ×2 (08:55→17:38)
[2018-12-26] MEDS: Tamsulosin HCl 0.4 MG Capsule PO ×2 (08:55→17:39)
[2018-12-26 10:00] VITALS: PULSE 88; RESP 18; O2SAT 96
[2018-12-26 16:00] VITALS: BP 90/59; PULSE 94; RESP 16; TEMP 36.7; O2SAT 99
[2018-12-26] MEDS: Atorvastatin Calcium 10 MG Tablet PO (20:32)
[2018-12-27] MEDS: Senna/Docusate Sodium 1 Tablet PO ×2 (06:04→17:04)
[2018-12-27] MEDS: Amiodarone 200 MG Tablet PO (06:04)
[2018-12-27] MEDS: Polyethylene Glycol 3350 17 GM PACKET PO (06:04)
[2018-12-27] MEDS: Finasteride 5 MG Tablet PO (06:04)
[2018-12-27] MEDS: Levothyroxine 50 MCG Tablet PO (06:04)
[2018-12-27] MEDS: APIXABAN 5 MG TABLET PO ×2 (06:04→17:04)
[2018-12-27] MEDS: Menthol/Lanolin/Calamine/Znox 113 GM Tube 1 APPLIC TOPICAL ×2 (06:04→20:48)
[2018-12-27] MEDS: Smz/Tmp Ds Tablet 1 TABLET PO ×2 (08:51→17:03)
[2018-12-27] MEDS: Tamsulosin HCl 0.4 MG Capsule PO ×2 (08:51→17:04)
--- NOTE | 2018-12-27 14:34 | CASEMGMT ---
Social Work Completed Living Will and HPOA with pt - named spouse, Marie Valdez as primary and friend, Yossi Pino as secondary. Copies are placed in patient's chart. Carol Watkins MSW PLATFORM LOADER
[2018-12-27 15:11] VITALS: BP 101/56; PULSE 74; RESP 18; TEMP 36.8; O2SAT 98
[2018-12-27] MEDS: Atorvastatin Calcium 10 MG Tablet PO (20:48)
[2018-12-28 05:48] LABS: Absolute Lymphocyte Count 1.35 X10^3/uL (0.83-4.51); Absolute Neutrophil Count 2.7 X10^3/uL (2.0-7.7); Basophil# 0.08 X10^3/uL; Basophil% 1.5 % (0-1); Eosinophil# 0.39 X10^3/uL; Eosinophils% 7.3 % (0-5); Hemoglobin 10.1 g/dL (13.0-16.5); Lymphocyte # 1.35 X10^3/ul (4.0); Lymphocyte % 25.3 % (19-41); Mean Corp Hgb Conc 30.6 g/dL (32-36); Mean Corpuscular Hgb 32.7 pg (27.0-32.0); Mean Corpuscular Volume 106.8 fL (80-94); Mean Platelet Vol. 10.2 fl (6.2-12.0); Monocyte# 0.75 X10^3/uL; Monocyte% 14.1 % (0-10); NRBC Flagged by Analyzer 0 % (0-5); Neutrophil # 2.72 X10^3/uL (2.7-7.7); POSITIVE MORPHOLOGY YES; Platelet Count 241 K/mm3 (150-450); RBC Distribution Width CV 17.2 % (11.6-14.6); Red Blood Count 3.09 M/mm3 (4.6-6.2); White Blood Count 5.3 K/mm3 (4.4-11.0)
[2018-12-28 05:51] LABS: Differential Indicated SCAN CRITERIA MET
[2018-12-28 06:14] LABS: Acanthocytes 1+; Anion Gap 6 (5-15); BUN 17 mg/dL (7-18); BUN/Creat Ratio 20.8 RATIO (10-20); Calcium,Total 8.1 mg/dL (8.5-10.1); Chloride 112 mmol/L (98-107); Creatinine, Serum 0.82 mg/dL (0.70-1.30); Differential Comment SCANNED; EST Glomerular Filtration Rate 96 mL/min (>60); Est Glom Filt Rate - Afr Amer 116 mL/min (>60); Estimated Creatinine Clearance 74.19 ml/min; Glucose 93 mg/dL (74-106); Macrocytosis 3+; Polychromasia 1+; Potassium 4.2 mmol/L (3.5-5.1); Sodium Level 142 mmol/L (136-145)
[2018-12-28] MEDS: Levothyroxine 50 MCG Tablet PO (06:42)
[2018-12-28] MEDS: Finasteride 5 MG Tablet PO (06:42)
[2018-12-28] MEDS: Amiodarone 200 MG Tablet PO (06:42)
[2018-12-28] MEDS: APIXABAN 5 MG TABLET PO ×2 (06:42→17:07)
[2018-12-28] MEDS: Menthol/Lanolin/Calamine/Znox 113 GM Tube 1 APPLIC TOPICAL ×2 (06:42→19:57)
[2018-12-28] MEDS: Senna/Docusate Sodium 1 Tablet PO ×2 (06:42→17:07)
[2018-12-28] MEDS: Polyethylene Glycol 3350 17 GM PACKET PO (06:42)
[2018-12-28] MEDS: Tamsulosin HCl 0.4 MG Capsule PO ×2 (08:48→17:07)
[2018-12-28] MEDS: Smz/Tmp Ds Tablet 1 TABLET PO ×2 (08:48→17:07)
[2018-12-28] MEDS: Tuberculin,Purif.prot.deriv. 50 TU/ML Vial 5 ML ID (11:14)
--- NOTE | 2018-12-28 12:11 | CASEMGMT ---
Social Work IDT met with patient and for care plan meeting. Discussed patient's progress in therapy. Pt is SBA for transfers, min assist for LE ADLs, SBA for UE ADLs, walking 180 ft FWW SBA, completing 2 steps with 2 handrails at SBA, and endurance is improving. concerned about bed mobility - therapy will continue to work with pt. Explained Medicare benefits and coverage. Will continue to follow for DC plans. MELIA García TRUSS ASSEMBLER
--- NOTE | 2018-12-28 12:46 | PCM.PN.ID ---
Patient Problems: Active and Suspected Problems (Last Reviewed 12/23/18 @ 11:30 by Asad Davila MD) Debility (Acute) Weakness (Acute) Hypotension (Acute) Dehydration (Acute) Edema (Acute) Bacteremia (Acute) UTI (urinary tract infection) (Acute) MDRO (multiple drug resistant organisms) resistance (Acute) UTI due to extended-spectrum beta lactamase (ESBL) producing Escherichia coli (Acute) BPH w/o urinary obs/LUTS (Acute) Subjective: Feeling well, no fever. Urinating without trouble. No n/v/d. - Physical Exam Vitals/I&O's: Vital Signs Temp Pulse Resp BP Pulse Ox 98.3 F 74 18 101/56 L 98 12/27/18 15:11 12/27/18 15:11 12/27/18 15:11 12/27/18 15:11 12/27/18 15:11 Oxygen Delivery Method Room Air Weight: 102.739 kg Body Mass Index (BMI) 32.5 Intake and Output for Last 24 Hours 12/26/18 12/27/18 12/28/18 23:59 23:59 23:59 Intake Total 720 / 720 720 / 720 360 / 360 Output Total 950 / 950 1725 / 1725 485 / 485 Balance -230 / -230 -1005 / -1005 -125 / -125 General: Alert, Cooperative, No apparent distress Lungs: Clear to auscultation, Normal air movement Cardiovascular: Regular rate, Regular Rhythm Abdomen: Soft, Non Tender, Non-Distended Skin: No rashes Laboratory Results 12/28/18 05:10: WBC 5.3, RBC 3.09 L, Hgb 10.1 L, Hct 33.0 L, MCV 106.8 H, MCH 32.7 H, MCHC 30.6 L, RDW Std Deviation 67.0 H, RDW Coeff of Chery 17.2 H, Plt Count 241, MPV 10.2, Immature Gran % (Auto) 0.800, Neut % (Auto) 51.0, Lymph % (Auto) 25.3, Jennings % (Auto) 14.1 H, Eos % (Auto) 7.3 H, Baso % (Auto) 1.5 H, Absolute Neuts (auto) 2.7, Absolute Lymphs (auto) 1.35, Nucleated RBC % 0, Differential Comment SCANNED, Polychromasia 1+, Macrocytosis 3+, Acanthocytes (Spur) 1+ 12/28/18 05:10: Sodium 142, Potassium 4.2, Chloride 112 H, Carbon Dioxide 24.0, Anion Gap 6, BUN 17, Creatinine 0.82, Estim Creat Clear Calc 74.19, Est GFR (MDRD) Af Amer 116, Est GFR (MDRD) Non-Af 96, BUN/Creatinine Ratio 20.8 H, Glucose 93, Calcium 8.1 L Current Medications Acetaminophen (Tylenol) 1,000 mg PO Q6H PRN PRN PRN Reason: Pain Score 1-3/10 Albuterol Sulfate (Ventolin Hfa (Sp)) 1 puff INHALATION Q6H PRN PRN PRN Reason: SOB &/OR WHEEZING Amiodarone HCl (Cordarone) 200 mg PO DAILY [facility] Last Admin: 12/28/18 06:42 Dose: 200 mg Documented by: Apixaban (Eliquis) 5 mg PO BID [facility] Last Admin: 12/28/18 06:42 Dose: 5 mg Documented by: Atorvastatin Calcium (Lipitor) 10 mg PO QHS [facility] Last Admin: 12/27/18 20:48 Dose: 10 mg Documented by: Bisacodyl (Dulcolax) 10 mg PO DAILY PRN PRN Reason: Constipation Calamine/Phenol (Calmoseptine Ointment) 1 applic TOPICAL 0600,2200 [facility]; Protocol Last Admin: 12/28/18 06:42 Dose: 1 applicatio Documented by: Finasteride (Proscar) 5 mg PO DAILY [facility] Last Admin: 12/28/18 06:42 Dose: 5 mg Documented by: Furosemide (Lasix) 20 mg PO DAILY PRN PRN Reason: Swelling Levothyroxine Sodium (Synthroid) 50 mcg PO DAILY [facility] Last Admin: 12/28/18 06:42 Dose: 50 mcg Documented by: Multi-Ingredient Cream (Eucerin) 1 applic TOPICAL QHS [facility]; Protocol Last Admin: 12/27/18 20:48 Dose: 1 applicatio Documented by: Nutritional Formula (Lactose Free) (Ensure Enlive) 120 ml PO 4X/DAY [facility] Last Admin: 12/28/18 12:06 Dose: 120 ml Documented by: Polyethylene Glycol (Miralax) 17 gm PO DAILY [facility] Last Admin: 12/28/18 06:42 Dose: 17 gm Documented by: [facility] Last Admin: 12/28/18 08:48 Dose: 20 meq Documented by: Senna/Docusate Sodium (Senokot-S, Nancy-Colace) 1 tablet PO BID [facility] Last Admin: 12/28/18 06:42 Dose: 1 tablet Documented by: Tamsulosin HCl (Flomax) 0.4 mg PO BID@0830,1730 [facility] Last Admin: 12/28/18 08:48 Dose: 0.4 mg Documented by: Trimethoprim/Sulfamethoxazole ([facility]rim Ds) [facility] Stop: 01/27/19 17:01 Last Admin: 12/28/18 08:48 Dose: 1 tablet Documented by: Medical Necessity - Tobacco Use Smoking Status: Former smoker Tobacco Use: Cigars Route of nutrition/ use of supplements: [] Nutritional Intake: [] IV Site: [] Grove Catheter: [] - Assessment/Plan Antibiotics: [] Assessment/Plan: [] Active and Suspected Problems (Last Updated 07/25/18 @ 11:53 by Rosanne Álvarez) Debility (Acute) Weakness (Acute) Hypotension (Acute) Dehydration (Acute) Edema (Acute) Bacteremia (Acute) UTI (urinary tract infection) (Acute) MDRO (multiple drug resistant organisms) resistance (Acute) UTI due to extended-spectrum beta lactamase (ESBL) producing Escherichia coli (Acute) Providencia bacteremia with esbl ecoli (+) ucx, suspected source is prostatitis. Cont on bactrim DS bid for 6 week total, stop date 01/27/19. Cr and K stable on labs this AM. Tolerating bactrim well so far. Grove is out and urinating well. Will follow
[2018-12-28 15:16] VITALS: BP 118/48; PULSE 85; RESP 20; TEMP 36.7; O2SAT 95
[2018-12-28] MEDS: Atorvastatin Calcium 10 MG Tablet PO (19:53)
[2018-12-29] MEDS: Amiodarone 200 MG Tablet PO (06:15)
[2018-12-29] MEDS: Levothyroxine 50 MCG Tablet PO (06:15)
[2018-12-29] MEDS: Finasteride 5 MG Tablet PO (06:15)
[2018-12-29] MEDS: Senna/Docusate Sodium 1 Tablet PO ×2 (06:15→17:43)
[2018-12-29] MEDS: APIXABAN 5 MG TABLET PO ×2 (06:15→17:43)
[2018-12-29] MEDS: Menthol/Lanolin/Calamine/Znox 113 GM Tube 1 APPLIC TOPICAL ×2 (06:17→21:35)
[2018-12-29] MEDS: Smz/Tmp Ds Tablet 1 TABLET PO ×2 (08:13→17:42)
[2018-12-29] MEDS: Tamsulosin HCl 0.4 MG Capsule PO ×2 (08:14→17:42)
--- NOTE | 2018-12-29 10:00 | NURSING ---
wound photo: right miranda
[2018-12-29 15:23] VITALS: BP 112/64; PULSE 86; RESP 17; TEMP 37; O2SAT 97
[2018-12-29] MEDS: Atorvastatin Calcium 10 MG Tablet PO (21:33)
[2018-12-30] MEDS: Finasteride 5 MG Tablet PO (05:47)
[2018-12-30] MEDS: Levothyroxine 50 MCG Tablet PO (05:47)
[2018-12-30] MEDS: Senna/Docusate Sodium 1 Tablet PO ×2 (05:47→17:25)
[2018-12-30] MEDS: Amiodarone 200 MG Tablet PO (05:47)
[2018-12-30] MEDS: APIXABAN 5 MG TABLET PO ×2 (05:47→17:25)
[2018-12-30] MEDS: Menthol/Lanolin/Calamine/Znox 113 GM Tube 1 APPLIC TOPICAL ×2 (05:48→20:39)
[2018-12-30] MEDS: Tamsulosin HCl 0.4 MG Capsule PO ×2 (09:04→17:24)
[2018-12-30] MEDS: Smz/Tmp Ds Tablet 1 TABLET PO ×2 (09:04→17:24)
--- NOTE | 2018-12-30 15:09 | DCINST_ITS ---
- Discharge Diagnoses Current Active Problems: Current Active and Chronic Problems (Last Reviewed 12/23/18 @ 11:30 by Asad Davila MD) Debility (Acute) Weakness (Acute) Hypotension (Acute) Atrial fibrillation (Chronic) Dehydration (Acute) Edema (Acute) BPH (benign prostatic hyperplasia) (Chronic) Bacteremia (Acute) UTI (urinary tract infection) (Acute) MDRO (multiple drug resistant organisms) resistance (Acute) UTI due to extended-spectrum beta lactamase (ESBL) producing Escherichia coli (Acute) BPH w/o urinary obs/LUTS (Acute) You will use the following diet at home:: No restrictions, Regular Your food should be the consistency of: Regular Your liquids should be the consistency of: Regular/Thin Discharge Activity: Return to Normal Activity, May Shower, Use Walker Weight Bearing Status: Weight bearing as tolerated Call your doctor if you observe: Fever of 101 or Higher, Inability to urinate, Inability to have a bowel movement, Shortness of breath, Chest pain, Uncontrolled pain Allergies/Adverse Reactions: Allergies adhesive tape Adverse Reaction (Verified 12/15/18 12:43) Other Medications to take at Discharge Amiodarone HCl 200 mg PO DAILY 11/02/13 Atorvastatin Calcium [Lipitor] 10 mg PO QHS 11/02/13 Albuterol IH (ProAir) [Proair Hfa] 1 puff INHALATION Q6H PRN PRN 12/15/18 Levothyroxine Sodium 50 mcg PO DAILY 12/15/18 Acetaminophen [Tylenol] 1,000 mg PO Q6H PRN PRN tablet 12/30/18 Apixaban [Eliquis] 5 mg PO BID #60 tab 12/30/18 Finasteride [Proscar] 5 mg PO DAILY #30 tab 12/30/18 Furosemide [Lasix] 20 mg PO DAILY PRN #30 tab 12/30/18 Menthol/Lanolin/Calamine/Znox [Calmoseptine Ointment] 1 applic TOPICAL 0600,2200 tube 12/30/18 Mineral Oil/Petrolatum,White [Eucerin] 1 applic TOPICAL QHS jar 12/30/18 Potassium Chloride 20 meq PO DAILY #30 tab.er.prt 12/30/18 Smz/Tmp Ds [Bactrim Ds] 1 tab PO BID #40 tab 12/30/18 Tamsulosin HCl [Flomax] 0.4 mg PO DAILY@1730 #30 cap 12/30/18 The following prescriptions were given: Smz/Tmp Ds [Bactrim Ds] 1 tab PO BID #40 tab Transmission Status: [facility]ending to [id number] Apixaban [Eliquis] 5 mg PO BID #60 tab Transmission Status: Pending to [id number] Tamsulosin HCl [Flomax] 0.4 mg PO DAILY@1730 #30 cap Transmission Status: [id number] Furosemide [Lasix] 20 mg PO DAILY PRN #30 tab PRN Reason: Swelling Transmission Status: [facility] Potassium Chloride 20 meq PO DAILY #30 tab.er.prt Transmission Status: [facility] Finasteride [Proscar] 5 mg PO DAILY #30 tab Transmission Status: [id number] Primary Care Physician: Tiburcio Leger MD [Primary Care Provider] - Please follow up with your Primary Care Physician in: 1 week. Test Results: Test results from this visit will be discussed in further detail at your follow- up appointment, if applicable. Please Follow Up With: Asad Davila MD When: 2 weeks. Please Follow Up With: Tiburcio Leger MD When: After D/C from TCU Please Follow Up With: Oncology When: As scheduled. Proposed Discharge Date: 01/07/19
--- NOTE | 2018-12-30 15:11 | PCM.DC.SUM ---
Discharge Date and Diagnosis - Problem List Patient Problems: Active and Suspected Problems (Last Reviewed 12/23/18 @ 11:30 by Asad Davila MD) Debility (Acute) Weakness (Acute) Hypotension (Acute) Dehydration (Acute) Edema (Acute) Bacteremia (Acute) UTI (urinary tract infection) (Acute) MDRO (multiple drug resistant organisms) resistance (Acute) UTI due to extended-spectrum beta lactamase (ESBL) producing Escherichia coli (Acute) BPH w/o urinary obs/LUTS (Acute) Date of Admission: 12/20/18 Date of Discharge: 01/07/19 - Primary Discharge Diagnosis Active and Suspected Problems (Last Reviewed 12/23/18 @ 11:30 by Asad Davila MD) Debility (Acute) Weakness (Acute) Hypotension (Acute) Dehydration (Acute) Edema (Acute) Bacteremia (Acute) UTI (urinary tract infection) (Acute) MDRO (multiple drug resistant organisms) resistance (Acute) UTI due to extended-spectrum beta lactamase (ESBL) producing Escherichia coli (Acute) BPH w/o urinary obs/LUTS (Acute) - Secondary Discharge Diagnosis Chronic Problems (Last Reviewed 12/23/18 @ 11:30 by Asad Davila MD) Atrial fibrillation (Chronic) BPH (benign prostatic hyperplasia) (Chronic) Multiple myeloma (Chronic) Hypothyroidism (Chronic) Paroxysmal atrial fibrillation (Chronic) Hyperlipidemia (Chronic) Hypertension (Chronic) Hospital Course and Treatment Imaging Results: 12/22/18 11:18 Diet: Regular Diet Is pt able to select menu?: Yes Diet Comments: low Na Consultations 12/28/18 07:01 Consult: Onc/Wound/locker room clerk Routine Comment: Reason for Consult:: RLE, raised area under wound, does not appear to be healing Comments:: since blister opened Operations: None Procedures: None Summary of Care Provided: The patient is a 78 year old Male with below past medical history hospitalized for bacteremia secondary to ESBL E. Coli, Providencia from prostatitis, complicated by right lower extremity DVT recalcitrant to coumadin therapy, admitted to TCU with debility, here for rehabilitation, strengthening, prior to discharge home with . Discharge home with . Patient Problems: Active and Suspected Problems (Last Reviewed 12/23/18 @ 11:30 by Asad Davila MD) Debility (Acute) Weakness (Acute) Hypotension (Acute) Dehydration (Acute) Edema (Acute) Bacteremia (Acute) UTI (urinary tract infection) (Acute) MDRO (multiple drug resistant organisms) resistance (Acute) UTI due to extended-spectrum beta lactamase (ESBL) producing Escherichia coli (Acute) BPH w/o urinary obs/LUTS (Acute) - Physical Exam Vitals/I&O's: Vital Signs Temp Pulse Resp BP Pulse Ox 98.6 F 86 17 112/64 97 12/29/18 15:23 12/29/18 15:23 12/29/18 15:23 12/29/18 15:23 12/29/18 15:23 Oxygen Delivery Method Room Air Weight: 102.739 kg Body Mass Index (BMI) 32.5 Intake and Output for Last 24 Hours 12/28/18 12/29/18 12/30/18 23:59 23:59 23:59 Intake Total 720 / 720 940 / 940 720 / 720 Output Total 1230 / 1230 820 / 820 Balance -510 / -510 120 / 120 720 / 720 Current Medications Acetaminophen (Tylenol) 1,000 mg PO Q6H PRN PRN PRN Reason: Pain Score 1-3/10 Albuterol Sulfate (Ventolin Hfa (Sp)) 1 puff INHALATION Q6H PRN PRN PRN Reason: SOB &/OR WHEEZING Amiodarone HCl (Cordarone) 200 mg PO DAILY [facility] Last Admin: 12/30/18 05:47 Dose: 200 mg Documented by: Apixaban (Eliquis) 5 mg PO BID [facility] Last Admin: 12/30/18 05:47 Dose: 5 mg Documented by: Atorvastatin Calcium (Lipitor) 10 mg PO QHS [facility] Last Admin: 12/29/18 21:33 Dose: 10 mg Documented by: Bisacodyl (Dulcolax) 10 mg PO DAILY PRN PRN Reason: Constipation Calamine/Phenol (Calmoseptine Ointment) 1 applic TOPICAL 0600,2200 [facility]; Protocol Last Admin: 12/30/18 05:48 Dose: 1 applicatio Documented by: Finasteride (Proscar) 5 mg PO DAILY [facility] Last Admin: 12/30/18 05:47 Dose: 5 mg Documented by: Furosemide (Lasix) 20 mg PO DAILY PRN PRN Reason: Swelling Levothyroxine Sodium (Synthroid) 50 mcg PO DAILY [facility] Last Admin: 12/30/18 05:47 Dose: 50 mcg Documented by: Multi-Ingredient Cream (Eucerin) 1 applic TOPICAL QHS [facility]; Protocol Last Admin: 12/29/18 21:35 Dose: 1 applicatio Documented by: Nutritional Formula (Lactose Free) (Ensure Enlive) 120 ml PO 4X/DAY [facility] Last Admin: 12/30/18 10:54 Dose: 120 ml Documented by: Polyethylene Glycol (Miralax) 17 gm PO DAILY [facility] Last Admin: 12/30/18 05:48 Dose: Not Given Documented by: [facility]assium Ch[facility] Last Admin: 12/30/18 09:04 Dose: 20 meq Documented by: Senna/Docusate Sodium (Senokot-S, Nancy-Colace) 1 tablet PO BID [facility] Last Admin: 12/30/18 05:47 Dose: 1 tablet Documented by: Tamsulosin HCl (Flomax) 0.4 mg PO BID@0830,1730 [facility] Last Admin: 12/30/18 09:04 Dose: 0.4 mg Documented by: Trimethoprim/Sulfamethoxazole ([facility]rim Ds) [facility] Stop: 01/27/19 17:01 Last Admin: 12/30/18 09:04 Dose: 1 tablet Documented by: Discharge Diet: No Restrictions Discharge Activity: Return to Normal Activity, May Shower, Use Walker Weight Bearing Status: Weight bearing as tolerated Call your doctor if you observe: Fever of 101 or Higher, Inability to urinate, Inability to have a bowel movement, Shortness of breath, Chest pain, Uncontrolled pain Home Medications: Medications to take at Discharge Amiodarone HCl 200 mg PO DAILY 11/02/13 Atorvastatin Calcium [Lipitor] 10 mg PO QHS 11/02/13 Albuterol IH (ProAir) [Proair Hfa] 1 puff INHALATION Q6H PRN PRN 12/15/18 Levothyroxine Sodium 50 mcg PO DAILY 12/15/18 Acetaminophen [Tylenol] 1,000 mg PO Q6H PRN PRN tablet 12/30/18 Apixaban [Eliquis] 5 mg PO BID #60 tab 12/30/18 Finasteride [Proscar] 5 mg PO DAILY #30 tab 12/30/18 Furosemide [Lasix] 20 mg PO DAILY PRN #30 tab 12/30/18 Menthol/Lanolin/Calamine/Znox [Calmoseptine Ointment] 1 applic TOPICAL 0600,2200 tube 12/30/18 Mineral Oil/Petrolatum,White [Eucerin] 1 applic TOPICAL QHS jar 12/30/18 Potassium Chloride 20 meq PO DAILY #30 tab.er.prt 12/30/18 Smz/Tmp Ds [Bactrim Ds] 1 tab PO BID #40 tab 12/30/18 Tamsulosin HCl [Flomax] 0.4 mg PO DAILY@1730 #30 cap 12/30/18 Following Prescrptions Were Given to Patient: Smz/Tmp Ds [Bactrim Ds] 1 tab PO BID #40 tab Transmission Status: [facility] Apixaban [Eliquis] 5 mg PO BID #60 tab Transmission Status: [facility] Tamsulosin HCl [Flomax] 0.4 mg PO DAILY@1730 #30 cap Transmission Status: [facility] Furosemide [Lasix] 20 mg PO DAILY PRN #30 tab PRN Reason: Swelling Transmission Status: [facility] Potassium Chloride 20 meq PO DAILY #30 tab.er.prt Transmission Status: [facility] Finasteride [Proscar] 5 mg PO DAILY #30 tab Transmission Status: [facility] Primary Care Physician: Tiburcio Leger MD [Primary Care Provider] - Please follow up with your Primary Care Physician in: 1 week. Please Follow Up With: Asad Davila MD When: 2 weeks. Please Follow Up With: Tiburcio Leger MD When: After D/C from TCU Please Follow Up With: Oncology When: As scheduled. Disposition: Home Minutes spent on discharge:: 30 Patient Condition:: Stable Medical Necessity - Tobacco Use Smoking Status: Former smoker Tobacco Use: Cigars Meaningful Use Info Meaningful Use Diagnoses (Choose all that apply): None applicable
[2018-12-30 16:00] VITALS: BP 110/70; PULSE 76; RESP 16; TEMP 36.6; O2SAT 97
--- NOTE | 2018-12-30 16:16 | CASEMGMT ---
Social Work Spoke with patient about discharge plans. Pt is requesting to DC home 01/07 - and IDT agreeable. Pt choosing to go to [facility] for outpatient PT/OT. Referral made. Referral made to [facility] for 3-in-1 commode. Pt will follow up outpatient for wounds and nursing to complete training for daily dressing changes. Plan: DC home with 01/07 with [facility] PT/OT and BSC Carol Watkins, ELECTRIC SEALING MACHINE OPERATOR BUS BOY
[2018-12-30] MEDS: Atorvastatin Calcium 10 MG Tablet PO (20:32)
[2018-12-31] MEDS: Levothyroxine 50 MCG Tablet PO (05:09)
[2018-12-31] MEDS: Senna/Docusate Sodium 1 Tablet PO ×2 (05:09→17:09)
[2018-12-31] MEDS: Finasteride 5 MG Tablet PO (05:10)
[2018-12-31] MEDS: APIXABAN 5 MG TABLET PO ×2 (05:10→17:09)
[2018-12-31] MEDS: Amiodarone 200 MG Tablet PO (05:10)
[2018-12-31] MEDS: Tamsulosin HCl 0.4 MG Capsule PO ×2 (09:24→17:09)
[2018-12-31] MEDS: Smz/Tmp Ds Tablet 1 TABLET PO ×2 (09:24→17:09)
[2018-12-31 15:25] VITALS: BP 124/49; PULSE 85; RESP 18; TEMP 36.4; O2SAT 97
[2018-12-31] MEDS: Atorvastatin Calcium 10 MG Tablet PO (21:02)
[2019-01-01] MEDS: APIXABAN 5 MG TABLET PO ×2 (06:08→18:19)
[2019-01-01] MEDS: Levothyroxine 50 MCG Tablet PO (06:08)
[2019-01-01] MEDS: Senna/Docusate Sodium 1 Tablet PO ×2 (06:08→18:19)
[2019-01-01] MEDS: Finasteride 5 MG Tablet PO (06:08)
[2019-01-01] MEDS: Amiodarone 200 MG Tablet PO (06:08)
[2019-01-01] MEDS: Tamsulosin HCl 0.4 MG Capsule PO ×2 (08:43→18:19)
[2019-01-01] MEDS: Smz/Tmp Ds Tablet 1 TABLET PO ×2 (08:43→18:19)
[2019-01-01 15:50] VITALS: BP 103/60; PULSE 75; RESP 21; TEMP 36.4; O2SAT 93
[2019-01-01 15:54] VITALS: PULSE 82; RESP 18
[2019-01-01] MEDS: Atorvastatin Calcium 10 MG Tablet PO (19:54)
[2019-01-01] MEDS: Menthol/Lanolin/Calamine/Znox 113 GM Tube 1 APPLIC TOPICAL (19:56)
[2019-01-02] MEDS: Finasteride 5 MG Tablet PO (05:53)
[2019-01-02] MEDS: Amiodarone 200 MG Tablet PO (05:53)
[2019-01-02] MEDS: APIXABAN 5 MG TABLET PO ×2 (05:53→17:26)
[2019-01-02] MEDS: Levothyroxine 50 MCG Tablet PO (05:53)
[2019-01-02] MEDS: Menthol/Lanolin/Calamine/Znox 113 GM Tube 1 APPLIC TOPICAL ×2 (05:55→19:51)
--- NOTE | 2019-01-02 08:32 | MDS.RN ---
Information for the mds was obtained from review of the clinical record, interview of resident, staff, and direct observation of resident's care.
[2019-01-02] MEDS: Smz/Tmp Ds Tablet 1 TABLET PO ×2 (08:56→17:26)
[2019-01-02] MEDS: Tamsulosin HCl 0.4 MG Capsule PO ×2 (08:56→17:26)
--- NOTE | 2019-01-02 09:41 | NURSING ---
wound photo: right miranda
--- NOTE | 2019-01-02 09:45 | NURSING ---
LUDA SALTER/WOUND NURSE CHANGED PT DRESSING TO LEG.
[2019-01-02 15:37] VITALS: BP 109/71; PULSE 76; RESP 21; TEMP 36.8; O2SAT 97
[2019-01-02] MEDS: Senna/Docusate Sodium 1 Tablet PO (17:26)
[2019-01-02] MEDS: Atorvastatin Calcium 10 MG Tablet PO (19:38)
[2019-01-02 19:52] VITALS: PULSE 78; RESP 16; O2SAT 98
[2019-01-03] MEDS: Senna/Docusate Sodium 1 Tablet PO ×2 (06:19→16:34)
[2019-01-03] MEDS: Finasteride 5 MG Tablet PO (06:19)
[2019-01-03] MEDS: APIXABAN 5 MG TABLET PO ×2 (06:19→16:34)
[2019-01-03] MEDS: Levothyroxine 50 MCG Tablet PO (06:19)
[2019-01-03] MEDS: Amiodarone 200 MG Tablet PO (06:20)
[2019-01-03] MEDS: Menthol/Lanolin/Calamine/Znox 113 GM Tube 1 APPLIC TOPICAL ×2 (06:32→21:25)
[2019-01-03] MEDS: Smz/Tmp Ds Tablet 1 TABLET PO ×2 (08:09→16:34)
[2019-01-03] MEDS: Tamsulosin HCl 0.4 MG Capsule PO ×2 (08:09→16:34)
--- NOTE | 2019-01-03 10:08 | CASEMGMT ---
Social Work Patient requesting to discharge 01/05. IDT notified and agreeable. Updated [facility] on DC date and BSC may not be delivered by then and pt is okay with that. Carol Watkins, KIESELGUHR REGENERATOR OPERATOR EXHIBITOR SALES
[2019-01-03 11:11] VITALS: PULSE 79; RESP 18; O2SAT 94
[2019-01-03 15:58] VITALS: BP 124/70; PULSE 78; RESP 20; TEMP 36.6; O2SAT 97
[2019-01-03] MEDS: Atorvastatin Calcium 10 MG Tablet PO (21:24)
[2019-01-04 05:54] LABS: Absolute Neutrophil Count 2.4 X10^3/uL (2.0-7.7); Basophil# 0.06 X10^3/uL; Basophil% 1.1 % (0-1); Eosinophil# 0.47 X10^3/uL; Eosinophils% 8.7 % (0-5); Hematocrit 33.2 % (40-54); Hemoglobin 10.4 g/dL (13.0-16.5); Lymphocyte % 31.4 % (19-41); Mean Corp Hgb Conc 31.3 g/dL (32-36); Mean Corpuscular Hgb 33.7 pg (27.0-32.0); Mean Corpuscular Volume 107.4 fL (80-94); Mean Platelet Vol. 10.3 fl (6.2-12.0); Monocyte# 0.75 X10^3/uL; Monocyte% 13.8 % (0-10); NRBC Flagged by Analyzer 0 % (0-5); Neutrophil # 2.41 X10^3/uL (2.7-7.7); Neutrophil % 44.4 % (47-70); POSITIVE MORPHOLOGY YES; Platelet Count 175 K/mm3 (150-450); RBC Distribution Width CV 17.5 % (11.6-14.6); RBC Distribution Width SD 69.6 fl (35.1-43.9); Red Blood Count 3.09 M/mm3 (4.6-6.2); White Blood Count 5.4 K/mm3 (4.4-11.0)
[2019-01-04] MEDS: Amiodarone 200 MG Tablet PO (05:54)
[2019-01-04] MEDS: APIXABAN 5 MG TABLET PO ×2 (05:54→16:32)
[2019-01-04] MEDS: Levothyroxine 50 MCG Tablet PO (05:54)
[2019-01-04] MEDS: Finasteride 5 MG Tablet PO (05:54)
[2019-01-04] MEDS: Menthol/Lanolin/Calamine/Znox 113 GM Tube 1 APPLIC TOPICAL ×2 (05:56→20:10)
[2019-01-04 06:07] LABS: Differential Indicated SCAN CRITERIA MET
[2019-01-04 06:20] LABS: Anion Gap 6 (5-15); BUN 19 mg/dL (7-18); BUN/Creat Ratio 22.6 RATIO (10-20); Calcium,Total 8.3 mg/dL (8.5-10.1); Chloride 111 mmol/L (98-107); Creatinine, Serum 0.84 mg/dL (0.70-1.30); EST Glomerular Filtration Rate 93 mL/min (>60); Est Glom Filt Rate - Afr Amer 113 mL/min (>60); Estimated Creatinine Clearance 72.42 ml/min; Glucose 94 mg/dL (74-106); Potassium 4.6 mmol/L (3.5-5.1); Sodium Level 142 mmol/L (136-145)
[2019-01-04 06:52] LABS: Anisocytosis 1+; Differential Comment SCANNED
[2019-01-04] MEDS: Tamsulosin HCl 0.4 MG Capsule PO ×2 (08:20→16:31)
[2019-01-04] MEDS: Smz/Tmp Ds Tablet 1 TABLET PO ×2 (08:20→16:31)
[2019-01-04 15:11] VITALS: BP 113/63; PULSE 84; RESP 16; TEMP 36.8; O2SAT 97
[2019-01-04] MEDS: Senna/Docusate Sodium 1 Tablet PO (16:32)
[2019-01-04] MEDS: Atorvastatin Calcium 10 MG Tablet PO (20:08)
[2019-01-05] MEDS: Amiodarone 200 MG Tablet PO (06:25)
[2019-01-05] MEDS: APIXABAN 5 MG TABLET PO (06:25)
[2019-01-05] MEDS: Finasteride 5 MG Tablet PO (06:25)
[2019-01-05] MEDS: Levothyroxine 50 MCG Tablet PO (06:26)
[2019-01-05] MEDS: Menthol/Lanolin/Calamine/Znox 113 GM Tube 1 APPLIC TOPICAL (06:27)
[2019-01-05 06:31] VITALS: PULSE 70
[2019-01-05] MEDS: Tamsulosin HCl 0.4 MG Capsule PO (08:25)
[2019-01-05] MEDS: Smz/Tmp Ds Tablet 1 TABLET PO (08:25)
--- NOTE | 2019-01-05 11:58 | CASEMGMT ---
Addendum entered by Carol Watkins 01/05/19 12:06: Referred to [facility] and they do not carry cane's. Left message with to inquire if pt would like SW to order FWW instead. Will await for return phone call. Original Note: Social Work [facility] [place]'s room at which time pt stated he did not want it, he wanted a cane and a walker. Spoke with patient and about request and apologized for the confusion that a BSC was the only DME that needed to be ordered. Explained a cane and walker will both not be approved by insurance as it is in the same category which one pt would like SW to order - pt requested a cane. Will get new script and fax to [facility], but that cane would need to be delivered to the house since patient is actively discharging from unit. Pt and agreed that would be fine. Carol Watkins, RANGE MASTER CHART COMPUTER
[2019-01-05 13:43] VITALS: BP 124/57; PULSE 80; RESP 18; TEMP 36.7; O2SAT 98
== END 2019-01-05 11:45 | disposition home or self-care (01) | DRG 728 ==
PROVIDERS: Admitting Provider Family Medicine Geriatric Medicine; Family Provider Family Medicine; PCP Family Medicine; Referring Provider Family Medicine Geriatric Medicine; Visit Provider Family Medicine Geriatric Medicine
DX: N41.0 Acute prostatitis (principal); I82.401 Acute embolism and thrombosis of unspecified deep veins of right lower extremity; Z16.12 Extended spectrum beta lactamase (ESBL) resistance; C90.00 Multiple myeloma not having achieved remission; N39.0 Urinary tract infection, site not specified; I48.20 Chronic atrial fibrillation, unspecified; Z16.24 Resistance to multiple antibiotics; Z23 Encounter for immunization; E03.9 Hypothyroidism, unspecified; B96.20 Unspecified Escherichia coli [E. coli] as the cause of diseases classified elsewhere; N40.1 Benign prostatic hyperplasia with lower urinary tract symptoms; E78.5 Hyperlipidemia, unspecified; E87.6 Hypokalemia; I10 Essential (primary) hypertension; R29.6 Repeated falls; I48.0 Paroxysmal atrial fibrillation; Z87.891 Personal history of nicotine dependence; Z86.718 Personal history of other venous thrombosis and embolism; S81.811D Laceration without foreign body, right lower leg, subsequent encounter; X58.XXXD Exposure to other specified factors, subsequent encounter; R33.8 Other retention of urine
CPT/HCPCS: 36415; 80048; 85025; 97110; 97116; 97162; 97166; 97530; 97535; 97802; G0008; 90686

== ENCOUNTER → 2019-01-23 15:07 | Outpatient (CLI) | payer MEDICARE, OTHER, SELFPAY ==
[2019-01-23 15:03] VITALS: BMI 33.3
--- NOTE | 2019-01-23 15:08 | RAD_ITS ---
STUDY: X-RAY - RIGHT SHOULDER REASON FOR EXAM: Male, 78 years old. Shoulder pain. TECHNIQUE: 4 view(s) of the shoulder. COMPARISON: None. FINDINGS: There is mild degenerative arthrosis of the glenohumeral articulation. There is degenerative arthrosis of the acromioclavicular joint without inferior osseous spur formation. Normal acromion. There is lucency through the mid inferior aspect of the scapula, 2.3 cm below the glenoid with cortical disruption consistent with scapular fracture. Normal humeral head and visualized proximal humerus. The soft tissue structures are unremarkable. Normal visualized pulmonary apex. RAD/Shoulder min 2 Views IMPRESSION: Mid inferior scapular fracture , as described above. Electronically Signed: Sue Rojas MD at 3:23 EST , Service support ,
== END ==
PROVIDERS: Family Provider Family Medicine; PCP Family Medicine; Visit Provider Orthopaedic Surgery
DX: M25.511 Pain in right shoulder (principal); R53.81 Other malaise; R53.1 Weakness; R78.81 Bacteremia
CPT/HCPCS: 73030; 97110

== ENCOUNTER → 2019-02-03 16:46 | Outpatient (CLI) | payer MEDICARE, OTHER, SELFPAY ==
[2019-01-23 15:03] VITALS: BMI 33.3
--- NOTE | 2019-02-03 16:47 | MRI_ITS ---
STUDY: MRI RIGHT SHOULDER REASON FOR EXAM: Male, 78 years old. Right shoulder pain. Limited range of motion. Multiple myeloma. TECHNIQUE: Standardized fat and water weighted pulse sequences were obtained in all 3 orthogonal planes. COMPARISON: June 29, 2011. FINDINGS: Soft tissue lesion at the suprascapular region with mild scapular cortical involvement measuring 3.6 cm x 1.7 cm (coronal image 6 series 7). Distal clavicle bone lesion measuring 1 cm x 1.3 cm (sagittal image 3 series 8). Overall number of lesions decreased from prior exam. No acute fracture. No dislocation. Mild supraspinatus and infraspinatus tendinosis with tiny linear infraspinatus insertional tear (coronal images 9 and 10 series 6). Mild subscapularis tendinosis without tear. Normal teres minor tendon. No significant muscle atrophy. Mild intracapsular biceps tendinosis. Labral degeneration with focal superior labral tear (coronal image 11 series 6). Biceps labral anchor intact. Capsular ligaments intact. Normal rotator cuff interval. Severe acromioclavicular joint arthrosis. Severe narrowing of the acromiohumeral interval (sagittal image 8 series 8). No significant joint effusion. Minimal subacromial and subdeltoid fluid. Mild glenohumeral joint arthrosis. No significant glenohumeral joint effusion. Intact coracohumeral and coracoacromial ligaments. Normal quadrilateral space. Normal axillary space. Normal deltoid muscle. Normal trapezius muscle. MRI/Upper Ext Joint Only(Routine) IMPRESSION: Rotator cuff tendinosis with tiny linear infraspinatus insertional tear Mild intracapsular biceps tendinosis Labral degeneration with focal superior labral tear Severe AC joint arthrosis with marked anterior impingement Mild glenohumeral joint arthrosis Decreased size and number of soft tissue/bone lesions (compatible with patient''s history of myeloma) Electronically Signed: Luis F Gayle DO at 11:23 EST Tel , Service support ,
== END ==
PROVIDERS: Family Provider Family Medicine; PCP Family Medicine; Referring Provider Orthopaedic Surgery; Visit Provider Orthopaedic Surgery
DX: M25.511 Pain in right shoulder (principal); S46.001A Unspecified injury of muscle(s) and tendon(s) of the rotator cuff of right shoulder, initial encounter; R53.1 Weakness; R53.81 Other malaise
CPT/HCPCS: 73221; 97110

== ENCOUNTER → 2019-02-09 08:19 | Outpatient (CLI) | payer MEDICARE, OTHER, SELFPAY ==
[2019-01-12 14:01] VITALS: BMI 33.3
[2019-01-23 15:03] VITALS: BMI 33.3
--- NOTE | 2019-02-09 08:23 | CT_ITS ---
STUDY: CT CHEST WITH CONTRAST REASON FOR EXAM: Male, 78 years old. History of thoracic aortic aneurysm. Multiple myeloma. The patient is currently on chemotherapy. RADIATION DOSAGE (If Supplied By Facility): CTDIvol = ( 17.97 ) mGy, DLP = ( 708.86 ) mGycm TECHNIQUE: Transaxial imaging was performed following intravenous administration of IV 100mL Isovue-370. Multiplanar coronal and sagittal images were reformatted. Individualized dose optimization techniques were used for this CT. COMPARISON: None. FINDINGS: There is a 3.3 cm x 0.6 cm linear density in the medial aspect of the superior segment of the left lower lobe with bronchiectasis. This most likely represents a focal area of scarring. This extends into the pleural surface posteriorly. There is no demonstrated pleural abnormality. There are calcifications of the coronary arteries. There are multiple small lymph nodes within the mediastinum, which are normal in size and morphology most compatible with reactive lymph hyperplasia. Normal hilar regions. Normal enhanced pulmonary arteries. Minimal dilatation of the descending thoracic aorta with a transverse dimension of 4 cm. There are multi-level degenerative changes of the thoracic spine. Ill-defined lytic lesions are seen throughout multiple thoracic vertebrae in keeping with the patient''s history of multiple myeloma. There is also evidence of a soft tissue mass with expansion and destruction of the left seventh or eighth rib anterolaterally. Small lytic lesions also seen in the lateral aspect of the right clavicle as well as expansion and soft tissue destruction along the medial aspect of the right clavicle. There is no demonstrated abnormality of the visualized upper abdomen. CT/Chest WITH Contrast IMPRESSION: Findings images of scarring in the superior segment of the left lower lobe. Multiple lytic lesions seen throughout the thoracic vertebrae as well as the ribs in keeping with the patient''s history of known multiple myeloma. Electronically Signed: Yonathan Foy, at 14:53 EST , Service support ,
--- NOTE | 2019-02-09 10:34 | PFTCOMP ---
COMPLETE PULMONARY FUNCTION TEST INTERPRETATION Brief HPI: Patient is an 78 year old male, currently under the care of Dr. Reddy, who presents to [facility] for complete pulmonary function tests secondary to diagnosis of high risk med use. Respiratory therapist reports good effort and reproducible results. Interpretation: Forced expiration spirometry shows no large airways obstructive ventilatory defect with an FEV1 of 95% predicted. There is no significant bronchodilator response by strict ATS criteria. Spirograms are of good quality and plateau normally. The respiratory flow volume loop shows a normal pattern. Lung volumes by body plethysmography show a normal total lung capacity at 5.76 L, 91% predicted. All other lung volumes are within normal limits. Diffusion capacity by carbon monoxide is at the lower limit of normal at 64% predicted. The airway resistance is normal. No previous pulmonary function tests were available for review. Impression: These pulmonary function test showed normal spirometric and lung volumes, but diffusing capacity is at the lower limit of normal. No previous pulmonary function test to establish a trend for recommendations on amiodarone.
== END ==
PROVIDERS: Family Provider Family Medicine; PCP Family Medicine; Referring Provider Internal Medicine Cardiovascular Disease; Visit Provider Internal Medicine Cardiovascular Disease
DX: I71.2 Thoracic aortic aneurysm, without rupture (principal); Z79.899 Other long term (current) drug therapy
CPT/HCPCS: 71260; 94060; 94726; 94729; Q9967

== ENCOUNTER 2019-02-10 14:00 | Outpatient (RCR) | payer MEDICARE, OTHER, SELFPAY ==
[2018-12-20 16:00] VITALS: BMI 32.5
[2019-01-12 14:01] VITALS: BMI 33.3
--- NOTE | 2019-01-16 10:20 | HP.PTEVAL ---
Patient's Visit Information ADDISON AGGARWAL is a 78 year old M referred to Physical Therapy by Colten Esquivel MD with a diagnosis of debility, weakness, bacterenia. Date of Evaluation: 01/16/19 Physical Therapist: MATTEO Alexander - Visit Plan Frequency: 2-3x /Week Duration: 6 Weeks Plan: 2-3X/ week for 3-6 weeks for LE strength, gait training, functional activities, balance activities with HEP - Subjective Findings: 17 days in the hospital and rehab for infection in his blood and bladder and blodd clot in the R leg and was so weak and so run down. They are not sure where the infection came from and had to use some different antibiotic. Still on antibiotics. His back still hurts and sees Dr Glynn weston for shots. He can not raise his shoulder up over head and it hurts... he is going to stop at [facility] and see if they can look at it. He is sleeping well. He has no pain in his legs. He has stairs at home to the basement and does not have trouble with those and 1 step up into the house and he is ok with that and uses the door frame. He is able to drive. Pt is having some balance issues. Pt reports that he has not been moving much over the last month or so.....he was probably feeling depressed a little. He is a member here at through [employer]. - Pain back pain Pain Intensity (Out of 10): 1 Pain Intensity Range: 6 R shoulder pain Pain Intensity (Out of 10): 0 Pain Intensity Range: 8 - Objective sit to stand: needs UE to get up out of the chair. Gait: Walks with shorter stride, increased SOB, and veers to the R at times. Has some trouble picking up his feet. LE MMT: B Hip flex 4-/5, B knee flexion 4-/5, B knee ext 4-/5 B, B hip abd 4/5, able to 1/2 normal ROM bridge. Tight B gastroc and HS B. Pt is able to raise heels and toes partial ROM using UE support. FGA: 16. Stairs: up stairs with the R and down with the L with 2 hand rails ( pt has L knee pain) - Balance Scores Functional Gait Assessment Score: 16 % Disability: 46.6700 - Goals Goal 1:: I HEP Goal Time Frame: 4-6 Weeks Goal 2:: Increase LE strength by 1/2 muscle grade (at time of eval: LE MMT: B Hip flex 4-/5, B knee flexion 4-/5, B knee ext 4-/5 B, B hip abd 4/5, able to 1/2 normal ROM bridge). Goal Time Frame: 4-6 Weeks Goal 3:: Increase FGA by 3 points to decrease fall risk (FGA at EVAL: 16) Goal Time Frame: 4-6 Weeks Goal 4:: Sit to stand X 5 without 1 UE suuport Goal Time Frame: 4-6 Weeks Goal 5:: Walk 150 feet with increased stride and less veering with SBA Goal Time Frame: 4-6 Weeks - Rehabilitation Potential Rehabilitation Potential: Good - Anticipated Interventions Patient/Client Instruction: Educate patient on: Condition, Plan of Care For the Purpose of:: To decrease pain, To increase ROM, To improve nutrient delivery to tissue, To improve muscle performance and motor function, To improve ability to perform ADL's, To increase tolerance to activity/condition/position, To improve performance and independence with ADL's, To improve ability of physical actions for home/community/work/leisure, To improve gait and locomotor functions, To increase flexibility/ROM, To improve balance, To improve safety with gait Therapeutic Exercise to Include: Strength training, Balance training, Postural training, Flexibilty training, Gait and locomotor training, Active ROM For the Purpose of:: To decrease pain, To improve nutrient delivery to tissue, To improve muscle performance and motor function, To improve ability to perform ADL's, To increase tolerance to activity/condition/position, To improve performance and independence with ADL's, To improve ability of physical actions for home/community/work/leisure, To improve gait and locomotor functions, To increase flexibility/ROM, To improve balance, To improve safety with gait Functional Training to Include: Gait training For the Purpose of:: To improve gait and locomotor functions, To improve safety with gait Thank you for the opportunity to evaluate your patient. For Medicare and Medicare HMO plans, please review the plan of care and approve it. It will need to be FAXED BACK to us at [phone] for Medicare purposes. For Medicare only, by signing this I certify the plan of care. Please let me know if there are questions or concerns regarding this plan of care. Physician Signature: Date:
--- NOTE | 2019-02-10 14:24 | HP.PTDCSUM_ITS ---
HP - PT D/C Summary It has been my pleasure to treat ADDISON AGGARWAL under orders from Colten Esquivel MD, for the diagnosis of debility, weakness, bacterenia for a total of 10 visit(s). Discharge Date: 02/10/19 Please see the following information for a summary of their discharge status. - Subjective Subjective: He is still having a struggle getting out of a chair without using his arms. He is good for 1 or 2 and then he cant do it anymore. He feels that he has gotten stronger and that his knees have loosened up. His endurance is better. He feels that he is good to do exercises at home and not do formal PT at this time. He has a list of exercises and feels comfortable with them. He has LBP when walking and it is about 5/10 and that is pretty normal for him. - Pain back pain Pain Intensity (Out of 10): 2 R shoulder pain Pain Intensity (Out of 10): 1 L knee Pain Intensity (Out of 10): 2 - Overall Improvement % Improvement: 40 - Objective Objective/Function: sit to stand: can't do it today due to back and knee pain. Gait: walks with normal gait pattern. LE MMT: B Hip flex 4/5, B knee flexion 4- /5, B knee ext 4/5 B, B hip abd 4/5, able to 1/2 normal ROM bridge. FGA: 19 - Goals Goal 1:: I HEP Goal Progress: Goal Met Goal 2:: Increase LE strength by 1/2 muscle grade (at time of eval: LE MMT: B Hip flex 4-/5, B knee flexion 4-/5, B knee ext 4-/5 B, B hip abd 4/5, able to 1/2 normal ROM bridge). Goal Progress: Progressing Goal 3:: Increase FGA by 3 points to decrease fall risk (FGA at EVAL: 16) Goal Progress: Goal Met Goal 4:: Sit to stand X 5 without 1 UE suuport Goal Progress: Progressing Goal 5:: Walk 150 feet with increased stride and less veering with SBA Goal Progress: Goal Met - Plan Plan: 2-3X/ week for 3-6 weeks for LE strength, gait training, functional activities, balance activities with HEP. Will need a written exercise log of current machines before d/c. - D/C Information Discharge Comments: DC PT If there are questions or concerns regarding this patient's physical therapy, please feel free to call me at [phone]. Thank you for the referral of this patient. Sincerely, Isabelle Torres, MPT
== END 2019-02-10 19:00 | disposition home or self-care (01) ==
LOC: PT 14:00
PROVIDERS: Family Provider Family Medicine; PCP Family Medicine; Referring Provider Family Medicine Geriatric Medicine; Visit Provider Family Medicine Geriatric Medicine
DX: R53.81 Other malaise (principal); R53.1 Weakness; R78.81 Bacteremia
CPT/HCPCS: 97110; 97161; 97530

== ENCOUNTER → 2019-04-12 | Outpatient (CLI) | payer MEDICARE, OTHER, SELFPAY ==
[2019-02-13 07:54] VITALS: BMI 33.3
[2019-04-12 15:42] LABS: Amphetamine Urine VISTA NEGATIVE (<1000 ng/mL); Barbiturate Urine VISTA NEGATIVE (< 200 ng/mL); Benzodiazepine Urine VISTA NEGATIVE (< 200 ng/mL); Cocaine Urine VISTA NEGATIVE (< 300 ng/mL); Ecstacy Urine VISTA NEGATIVE (< 500 ng/mL); Methadone Urine VISTA NEGATIVE (< 300 ng/mL); PCP Urine VISTA NEGATIVE (< 25 ng/mL); THC Urine VISTA NEGATIVE (< 50 ng/mL); Vista UDS pH Range 7
== END | disposition home or self-care (01) ==
LOC: LAB 14:07
PROVIDERS: PCP Family Medicine; Referring Provider Anesthesiology Pain Medicine; Visit Provider Anesthesiology Pain Medicine
DX: F11.20 Opioid dependence, uncomplicated (principal)
CPT/HCPCS: 80307

== ENCOUNTER → 2019-05-08 | Outpatient (CLI) | payer MEDICARE, OTHER, SELFPAY ==
[2019-02-13 07:54] VITALS: BMI 33.3
== END | disposition home or self-care (01) ==
LOC: LAB 14:04
PROVIDERS: PCP Family Medicine; Referring Provider Urology; Visit Provider Urology
DX: N39.0 Urinary tract infection, site not specified (principal)
CPT/HCPCS: 87077; 87086; 87088; 87186

== ENCOUNTER → 2019-07-04 | Outpatient (CLI) | payer MEDICARE, OTHER, SELFPAY ==
[2019-02-13 07:54] VITALS: BMI 33.3
== END | disposition home or self-care (01) ==
LOC: LAB 10:33
PROVIDERS: PCP Family Medicine; Referring Provider Urology; Visit Provider Urology
DX: N39.0 Urinary tract infection, site not specified (principal)
CPT/HCPCS: 87077; 87086; 87088; 87186

== ENCOUNTER → 2019-07-27 | Outpatient (CLI) | payer MEDICARE, OTHER, SELFPAY ==
[2019-02-13 07:54] VITALS: BMI 33.3
== END | disposition home or self-care (01) ==
LOC: LABSPEC 16:52
PROVIDERS: PCP Family Medicine; Referring Provider Urology; Visit Provider Urology
DX: R82.998 Other abnormal findings in urine (principal)
CPT/HCPCS: 87077; 87086; 87088; 87186

== ENCOUNTER 2019-07-29 09:55 | Outpatient (CLI) | payer MEDICARE, OTHER, SELFPAY ==
[2019-02-13 07:54] VITALS: BMI 33.3
[2019-07-29 10:05] VITALS: BMI 33.1
[2019-07-29] MEDS: 0.9% Saline Lock 10 ML Syringe IV ×2 (11:24→14:12)
[2019-07-29 14:11] VITALS: BP 132/83; PULSE 84; RESP 16; TEMP 36.8; O2SAT 98
--- NOTE | 2019-07-29 14:13 | NURSING ---
PT [facility] INFUSION WELL. VS STABLE. SL FLUSHED AND STOCKINETTE APPLIED AND PT GIVEN INSTRUCTIONS FOR HOME CARE TILL RETURNS MOODY FOR INFUSION. AMB TO [facility] WITH STAFF AND DC'D TO HOME
== END 2019-07-29 14:05 | disposition home or self-care (01) ==
LOC: MEDOUTP 09:57 → MS3 09:58
PROVIDERS: PCP Family Medicine; Visit Provider Urology
DX: N39.0 Urinary tract infection, site not specified (principal); Z16.24 Resistance to multiple antibiotics
CPT/HCPCS: 96365; 96366; A4216; J0278

== ENCOUNTER 2019-07-30 09:57 | Outpatient (CLI) | payer MEDICARE, OTHER, SELFPAY ==
[2019-02-13 07:54] VITALS: BMI 33.3
[2019-07-29 10:05] VITALS: BMI 33.1
[2019-07-30 10:04] VITALS: BMI 32.1
[2019-07-30 10:05] VITALS: BP 113/86; PULSE 58; RESP 18; TEMP 36.7; O2SAT 99
[2019-07-30] MEDS: 0.9% Saline Lock 10 ML Syringe IV (10:40)
== END 2019-07-30 12:35 | disposition home or self-care (01) ==
LOC: MEDOUTP 10:00 → MS3 10:01
PROVIDERS: PCP Family Medicine; Visit Provider Urology
DX: N39.0 Urinary tract infection, site not specified (principal); Z16.24 Resistance to multiple antibiotics
CPT/HCPCS: 96365; 96366; J7050; A4216; J0278

== ENCOUNTER → 2019-07-31 | Outpatient (CLI) | payer MEDICARE, OTHER, SELFPAY ==
[2019-02-13 07:54] VITALS: BMI 33.3
[2019-07-30 10:04] VITALS: BMI 32.1
[2019-07-31 10:09] VITALS: BP 140/85; PULSE 85; RESP 16; TEMP 36.3; O2SAT 100; BMI 32.7
[2019-07-31] MEDS: 0.9% NaCl IVPB Med Flush (250 mL) 15 ML IV (10:18)
[2019-07-31] MEDS: 0.9% NaCl Peripheral Flush Adult/Peds IV (10:18)
[2019-07-31 18:25] LABS: Vancomycin, Trough Level < 0.8 ug/mL (5.0-15.0)
== END | disposition home or self-care (01) ==
PROVIDERS: PCP Family Medicine; Referring Provider Urology; Visit Provider Urology
DX: N39.0 Urinary tract infection, site not specified (principal); Z16.24 Resistance to multiple antibiotics; Z79.2 Long term (current) use of antibiotics
CPT/HCPCS: 96365; 36415; 80202; J7050; A4216; J0278

== ENCOUNTER → 2019-08-01 | Outpatient (CLI) | payer MEDICARE, OTHER, SELFPAY ==
[2019-07-30 10:04] VITALS: BMI 32.1
[2019-07-31 10:09] VITALS: BMI 32.7
[2019-08-01 11:15] LABS: Anion Gap 10 (5-15); BUN 21 mg/dL (7-18); BUN/Creat Ratio 18.8 RATIO (10-20); Calcium,Total 8.6 mg/dL (8.5-10.1); Chloride 109 mmol/L (98-107); Creatinine, Serum 1.12 mg/dL (0.70-1.30); EST Glomerular Filtration Rate 67 mL/min (>60); Est Glom Filt Rate - Afr Amer 81 mL/min (>60); Glucose 116 mg/dL (74-106); Potassium 4.1 mmol/L (3.5-5.1); Sodium Level 144 mmol/L (136-145)
[2019-08-01] MEDS: 0.9% NaCl IVPB Med Flush (250 mL) 15 ML IV (12:56)
[2019-08-01] MEDS: 0.9% NaCl Peripheral Flush Adult/Peds IV ×2 (12:57→14:20)
[2019-08-01 13:01] VITALS: BP 99/58; PULSE 85; RESP 18; TEMP 36.4; BMI 32.7
[2019-08-01 14:24] VITALS: BP 111/66; PULSE 77; RESP 16
== END | disposition home or self-care (01) ==
LOC: MEDOUTP 12:20
PROVIDERS: PCP Family Medicine; Referring Provider Urology; Visit Provider Urology
DX: N39.0 Urinary tract infection, site not specified (principal); Z16.24 Resistance to multiple antibiotics
CPT/HCPCS: 96365; 96366; 80048; J7050; A4216; J0278

== ENCOUNTER → 2019-08-02 | Outpatient (CLI) | payer MEDICARE, OTHER, SELFPAY ==
[2019-07-30 10:04] VITALS: BMI 32.1
[2019-08-01 13:01] VITALS: BMI 32.7
[2019-08-02 12:39] VITALS: BP 119/81; PULSE 71; RESP 18; TEMP 36.6; O2SAT 98; BMI 32.7
[2019-08-02] MEDS: 0.9% NaCl IVPB Med Flush (250 mL) 15 ML IV (12:59)
[2019-08-02] MEDS: 0.9% NaCl Peripheral Flush Adult/Peds IV (12:59)
== END | disposition home or self-care (01) ==
LOC: MEDOUTP 12:21
PROVIDERS: PCP Family Medicine; Referring Provider Urology; Visit Provider Urology
DX: N39.0 Urinary tract infection, site not specified (principal); Z16.24 Resistance to multiple antibiotics
CPT/HCPCS: 96365; J7050; A4216; J0278

== ENCOUNTER 2019-08-03 19:54 | Outpatient (CLI) | payer MEDICARE, OTHER, SELFPAY ==
[2019-08-02 12:39] VITALS: BMI 32.7
[2019-08-03 20:11] VITALS: BP 138/99; PULSE 96; RESP 16; TEMP 36.6; O2SAT 99
[2019-08-03] MEDS: 0.9% NaCl Peripheral Flush Adult/Peds IV (20:14)
[2019-08-03] MEDS: 0.9% NaCl IVPB Med Flush (250 mL) 15 ML IV (20:14)
[2019-08-03 21:23] VITALS: BP 116/71; PULSE 94; RESP 18; TEMP 36.7; O2SAT 99
== END 2019-08-03 21:40 | disposition home or self-care (01) ==
LOC: MEDOUTP 19:55 → MS3 19:56
PROVIDERS: PCP Family Medicine; Referring Provider Urology; Visit Provider Urology
DX: N39.0 Urinary tract infection, site not specified (principal); Z16.24 Resistance to multiple antibiotics
CPT/HCPCS: 96365; J7050; A4216; J0278

== ENCOUNTER 2019-08-05 07:51 | Outpatient (CLI) | payer MEDICARE, OTHER, SELFPAY ==
[2019-08-02 12:39] VITALS: BMI 32.7
[2019-08-05 08:03] VITALS: BP 115/65; PULSE 95; RESP 16; TEMP 36.4; O2SAT 99
[2019-08-05] MEDS: 0.9% Saline Lock 10 ML Syringe IV (08:19)
== END 2019-08-05 10:00 | disposition home or self-care (01) ==
LOC: MEDOUTP 07:52 → MS3 07:53
PROVIDERS: PCP Family Medicine; Referring Provider Urology; Visit Provider Urology
DX: N39.0 Urinary tract infection, site not specified (principal); Z16.24 Resistance to multiple antibiotics
CPT/HCPCS: 96365; J7040; J7050; A4216; J0278

== ENCOUNTER 2019-08-06 19:38 | Outpatient (CLI) | payer MEDICARE, OTHER, SELFPAY ==
[2019-08-02 12:39] VITALS: BMI 32.7
[2019-08-06 20:25] VITALS: BP 128/85; PULSE 64; RESP 16; TEMP 36.6; O2SAT 99
[2019-08-06] MEDS: 0.9% NaCl Peripheral Flush Adult/Peds IV (22:02)
[2019-08-06] MEDS: 0.9% NaCl IVPB Med Flush (250 mL) 15 ML IV (22:02)
== END 2019-08-06 21:50 | disposition home or self-care (01) ==
LOC: MEDOUTP 19:40 → MS3 19:41
PROVIDERS: PCP Family Medicine; Visit Provider Urology
DX: N39.0 Urinary tract infection, site not specified (principal); Z16.24 Resistance to multiple antibiotics
CPT/HCPCS: 96365; J7050; A4216; J0278

== ENCOUNTER → 2019-09-04 | Outpatient (CLI) | payer MEDICARE, OTHER, SELFPAY ==
[2019-08-30 09:24] VITALS: BMI 33.0
== END | disposition home or self-care (01) ==
LOC: LABSPEC 17:05
PROVIDERS: PCP Family Medicine; Referring Provider Urology; Visit Provider Urology
DX: N39.0 Urinary tract infection, site not specified (principal)
CPT/HCPCS: 87077; 87086; 87088; 87186

== ENCOUNTER 2019-09-16 09:03 | Inpatient (IN) | payer MEDICARE, OTHER, SELFPAY ==
[2019-08-30 09:24] VITALS: BMI 33.0
[2019-09-15] VITALS (10 sets, daily range): BP systolic 95–147; BP diastolic 56–95; PULSE 58–81; RESP 16–18; TEMP 36.3–36.7; O2SAT 95–100; BMI 33.4; BMI 33.3
[2019-09-15] MEDS: Lactated Ringers 1,000 ML 75 ML IV (11:51)
--- NOTE | 2019-09-15 12:15 | PCM.HP.STD ---
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 coli infection and consistent persistent infections we did proceed with a transurethral resection of the prostate and then want to keep in the hospital for IV antibiotics for his resistant E. 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 Past Medical History Past Medical History (Chronic Problems): Chronic Problems (Last Reviewed 08/30/19 @ 13:09 by Thania Hopper) Chronic atrial fibrillation (Chronic) Thoracic aortic aneurysm without rupture (Chronic) Non-rheumatic aortic stenosis (Chronic) SORIN on CPAP (Chronic) Atherosclerotic heart disease of [place] coronary artery without angina pectoris (Chronic) Mild per cath 08/10/02 Pure hypercholesterolemia (Chronic) Essential hypertension (Chronic) BPH (benign prostatic hyperplasia) (Chronic) Multiple myeloma (Chronic) Hypothyroidism (Chronic) Medical History: Medical History (Last Reviewed 09/15/19 @ 12:[address] Asad Davila MD) Chronic atrial fibrillation (Chronic) I48.20 Thoracic aortic aneurysm without rupture (Chronic) I71.2 Non-rheumatic aortic stenosis (Chronic) I35.0 SORIN on CPAP (Chronic) G47.33, Z99.89 Atherosclerotic heart disease of [place] coronary artery without angina pectoris (Chronic) I25.10 Mild per cath 08/10/02 Pure hypercholesterolemia (Chronic) E78.00 Essential hypertension (Chronic) I10 Gram-negative bacteremia (Acute) R78.81 Urinary retention (Acute) R33.9 Prostatitis (Acute) N41.9 Debility (Acute) R53.81 Weakness (Acute) R53.1 Hypotension (Acute) I95.9 Dehydration (Acute) E86.0 Edema (Acute) R60.9 BPH (benign prostatic hyperplasia) (Chronic) N40.0 Bacteremia (Acute) R78.81 UTI (urinary tract infection) (Acute) N39.0 MDRO (multiple drug resistant organisms) resistance (Acute) Z16.35 UTI due to extended-spectrum beta lactamase (ESBL) producing Escherichia coli (Acute) N39.0, B96.29, Z16.12 BPH w/o urinary obs/LUTS (Acute) N40.0 Multiple myeloma (Chronic) C90.00 Hypothyroidism (Chronic) E03.9 Deep vein thrombosis (DVT) of right lower extremity (Acute) I82.401 Knee pain M25.569 Allergies adhesive tape Adverse Reaction (Verified 09/15/19 11:29) Other levofloxacin [From Levaquin] Adverse Reaction (Verified 09/15/19 11:29) PT UNSURE OF REACTION unable to sleep Home Medications: Ambulatory Orders Medication Instructions Recorded Albuterol IH (ProAir) [Proair Hfa] 1 puff INHALATION Q6H PRN PRN 12/15/18 Levothyroxine Sodium 50 mcg PO DAILY 12/15/18 Acetaminophen [Tylenol] 1,000 mg PO Q6H PRN PRN tab 12/30/18 Mineral Oil/Petrolatum,White 1 applic TOPICAL QHS jar 12/30/18 [Eucerin] Smz/Tmp Ds [Bactrim Ds] 1 tab PO BID #40 tab 12/30/18 Tamsulosin HCl [Flomax] 0.4 mg PO DAILY@1730 #30 cap 12/30/18 apixaban 5 mg tablet 5 mg PO BID #180 tab 03/22/19 atorvastatin 20 mg tablet 10 mg PO QHS #45 tab 03/22/19 amiodarone 100 mg tablet 100 mg PO DAILY #90 tab 07/11/19 furosemide 40 mg tablet 20 mg PO DAILY PRN tab 08/30/19 Finasteride [Proscar] 5 mg PO QHS 09/08/19 Hydrocodone/Acetaminophen 1 - 2 ea PO Q6H PRN PRN 09/08/19 [Hydrocodon-Acetaminophen 5-325] Surgical History: Surgical History (Last Reviewed 08/30/19 @ 13:09 by Thania Hopper) History of total right knee replacement (TKR) Z96.651 Surgical History: total knee arthroplasty Psychiatric History: No pertinent psych hx Smoking Status: Former smoker - *Family History Maternal Family History: Family History (Last Reviewed 08/30/19 @ 13:09 by Thania Hopper) Father Heart disease Mother Heart disease CVA (cerebral vascular accident) Brother CAD (coronary artery disease) History Items: No pertinent history Paternal Family History: Family History (Last Reviewed 08/30/19 @ 13:09 by Thania K [place]) Father Heart disease Mother Heart disease CVA (cerebral vascular accident) Brother CAD (coronary artery disease) History Items: No pertinent history Review of Systems Constitutional: Denies: Chills, Fever, Weight Change HEENT: Denies: Head Aches, Sinus Congestion, Sinus Drainage Cardiovascular: Denies: Chest Pain, Palpitations Respiratory: Denies: Cough, Shortness of breath at rest, Sputum production Gastrointestinal: Denies: Abdominal Pain, Nausea, Vomiting Genitourinary: Denies: Dysuria Musculoskeletal: Denies: Joint Pain, Joint Tenderness Skin: Denies: Rash, Wounds Neurological: Denies: Numbness, Tingling, Focal weakness Psychiatric: Denies: Anxiety, Depression, Homicidal Ideations, Suicidal Ideations Hematologic/ Lymphatic: Denies: Easy Bruising, Easy Bleeding VTE Information - Inpt Only VTE Present on Admission: No VTE Mechan Device Prophylaxis: SCD's - Physical Exam Vitals/I&O's: Vital Signs Temp Pulse Resp BP Pulse Ox 97.7 F L 81 16 121/81 H 100 09/15/19 11:31 09/15/19 11:31 09/15/19 11:31 09/15/19 11:31 09/15/19 11:31 Oxygen Delivery Method Room Air Weight: 105.6 kg Body Mass Index (BMI) 33.4 General: Alert, Oriented x3, Cooperative HEENT: Atraumatic, PERRLA, EOMI, Normocephalic Neck: Supple, No JVD, Negative Carotid Bruits Lungs: Clear to auscultation, Normal air movement Cardiovascular: Regular rate, No murmurs Abdomen: Bowel Sounds Present, Soft, Non Tender Extremities: No edema, Capillary Refill Less than 3 Seconds Skin: No rashes, No breakdown Musculoskeletal: No Tenderness to Palpation of Joints or Extremities Neurological: Cranial nerves II-XII grossly intact Psych/Mental Status: Normal Affect, Appropriate Laboratory Results 09/11/19 09:35: COVID-19 (YOSI) Not Detected Current Medications Cefazolin Sodium 2 gm/ Sodium (Chloride) 110 mls @ 150 mls/hr IV PREOP ONE Stop: 09/15/19 13:13 Lactated Ringer's () 1,000 mls @ 75 mls/hr IV .[id number] TRISTIN Last Admin: 09/15/19 11:51 Dose: 75 mls/hr Documented by: Sodium Chloride () 5 - 15 ml IV UD PRN PRN Reason: SALINE FLUSH Assessment/Plan All Active Problems (Last Reviewed 08/30/19 @ 13:09 by Thania Hopper) Arthritis of right shoulder region (Acute) Gram-negative bacteremia (Acute) Urinary retention (Acute) Prostatitis (Acute) Debility (Acute) Weakness (Acute) Hypotension (Acute) Dehydration (Acute) Edema (Acute) Bacteremia (Acute) UTI (urinary tract infection) (Acute) MDRO (multiple drug resistant organisms) resistance (Acute) UTI due to extended-spectrum beta lactamase (ESBL) producing Escherichia coli (Acute) BPH w/o urinary obs/LUTS (Acute) Deep vein thrombosis (DVT) of right lower extremity (Acute) Frequent falls (Acute) Skin tear of elbow without complication (Acute) 79-year-old male with a resistant E. coli infection plan to proceed with transurethral resection of the state
--- NOTE | 2019-09-15 12:21 | PCM.DC.URO ---
Discharge Diet: No Restrictions Discharge Activity: Return to Normal Activity, May Not Drive - for 2 days. Additional Activity Instructions:: Please be aware that pain medications may cause nausea. You should typically eat light foods as you take your pain medication. Pain medication may cause constipation, if this is a problem for you, please discuss with your doctor. Instructions: Transurethral Resection of the Prostate (TURP): Home Recovery Allergies/Adverse Reactions: Allergies adhesive tape Adverse Reaction (Verified 09/15/19 11:29) Other levofloxacin [From Levaquin] Adverse Reaction (Verified 09/15/19 11:29) PT UNSURE OF REACTION unable to sleep Medications to take at Discharge Albuterol IH (ProAir) [Proair Hfa] 1 puff INHALATION Q6H PRN PRN 12/15/18 Levothyroxine Sodium 50 mcg PO DAILY 12/15/18 Acetaminophen [Tylenol] 1,000 mg PO Q6H PRN PRN tab 12/30/18 Mineral Oil/Petrolatum,White [Eucerin] 1 applic TOPICAL QHS jar 12/30/18 Smz/Tmp Ds [Bactrim Ds] 1 tab PO BID #40 tab 12/30/18 Tamsulosin HCl [Flomax] 0.4 mg PO DAILY@1730 #30 cap 12/30/18 apixaban 5 mg tablet 5 mg PO BID #180 tab 03/22/19 atorvastatin 20 mg tablet 10 mg PO QHS #45 tab 03/22/19 amiodarone 100 mg tablet 100 mg PO DAILY #90 tab 07/11/19 furosemide 40 mg tablet 20 mg PO DAILY PRN tab 08/30/19 Finasteride [Proscar] 5 mg PO QHS 09/08/19 Hydrocodone/Acetaminophen [Hydrocodon-Acetaminophen 5-325] 1 - 2 ea PO Q6H PRN PRN 09/08/19 Orders to be completed after discharge: CBC-Complete Blood Cnt No Diff Time Frame: 09/08/19, Facility: [facility], Location: Laboratory Primary Care Physician: Tiburcio Leger MD [Primary Care Provider] - Test Results: Test results from this visit will be discussed in further detail at your follow-up appointment, if applicable. Please Follow Up With: Asad Davila MD When: in 2 weeks, please call to make an appointment.
[2019-09-15] MEDS: Cefazolin 2 GM in 0.9% Normal Saline 100 ML IV (12:25)
--- NOTE | 2019-09-15 12:40 | PROS_PTH ---
PATIENT: ADDISON AGGARWAL LOC: MS3 U#:[id number] AGE/SX: 79/M ROOM: ID325 RE09/16/[address]: Dr. Asad Davila MD : 1940 BED: 1 DIS: 09/17/2019 SPEC #: [id number] RECD: 09/15/19 13:37 STATUS: WATSON CHANEY #: [id number] ROBERT: 09/15/19 12:[address]: Asad Davila DEPT: SURGICAL PATHOLOGY RECD BY: Bubba Montano ENTERED: 09/18/19 11:01 SP TYPE: TURP OTHR DR: MD Dr. Ricki Jade MD Tissues: Prostate, NOS Procedures: Surgery Specimen Level IV HEADER OPERATION: Cysto, TUR prostate, Olympus PRE-OP DIAGNOSIS: BPH TISSUE SUBMITTED: Prostate chips MICROSCOPIC DIAGNOSIS Prostate, transurethral resection: Benign nodular hyperplasia. Mild chronic inflammation. Urothelium with mild chronic inflammation. AM:michela 09/19/19 MICROSCOPIC DESCRIPTION Slides are reviewed. GROSS DESCRIPTION Received is one container labeled with the patient's name and designated prostate chips. The specimen consists of multiple irregular fragments of pink-wood, rubbery, soft tissue that in aggregate weigh 3 gm and measure in aggregate 6 x 3 x 0.3 cm. Two metallic clips are also noted in the specimen. The entire soft tissue is submitted in three cassettes. The metallic clips are for gross identification only. / SJ:michela 09/18/19 TC:3 CPT: 33112
--- NOTE | 2019-09-15 13:05 | PCM.OPRPT ---
Report of Operation Date of Procedure: 09/15/19 Pre-Operative Diagnosis: BPH with obstruction recurrent urinary tract infections Post-Operative Diagnosis: Same Surgery/Procedure Performed:: Transurethral section of the prostate Description of Surgical Findings:: 79-year-old male taken back to the operating room at the smooth induction of general anesthesia he was placed in dorsolithotomy position the penis testicles are prepped and draped in usual fashion went into the bladder with a 24 Polish noncontinuous flow Olympus resectoscope, he had a short length prostate by bilateral hypertrophy with obstruction could see that the clips from prior and the logical procedure was visible I resected the right lobe of the prostate came across the clips and release the UroLift clips, came across the left low the prostate release or UroLift clips in the left side resected the prostate down to the verumontanum very carefully resected apical tissue sphincter was intact at Ban both the left and right ureteral orifice were intact at the resection was complete and I cauterized the resection site obtain good hemostasis patient anesthetic was versed he taken back to PACU good condition we will continue with IV antibiotics and CBI Type of Anesthesia:: General Drains: melendez - Admit VTE Documentation VTE Present on Admission: No VTE Mechan Device Prophylaxis: SCD's
[2019-09-15] MEDS: 0.9% Normal Saline 1,000 ML 75 ML IV (15:33)
[2019-09-15] MEDS: Tamsulosin HCl 0.4 MG Capsule PO (17:15)
[2019-09-15] MEDS: Atorvastatin Calcium 10 MG Tablet PO (22:27)
[2019-09-15] MEDS: Docusate Sodium 100 MG Capsule PO (22:27)
--- NOTE | 2019-09-15 23:04 | PCM.HP.ID ---
Problem List (1) UTI (urinary tract infection) Status: Acute Reason for Consult: uti Consulted by: Dr. Davila History of Present Illness: The patient is a 79 year old M with BPH, recurrent uti/prostatitis, h/o urolift. Recent course of iv abx. Reports he was on bactrim this past week. Last ucx with esbl ecoli. Taken to OR today by Dr. Peralta for TURP and removal of urolift. Feeling ok, no fever. Chronic urinary frequency and dysuria. No fever, no abd pain. Now on meropenem. Full ROS performed and neg except as noted above. - Medical History Past Medical History (Chronic Problems): Chronic Problems (Last Reviewed 09/15/19 @ 12:[address] Asad Davila MD) Chronic atrial fibrillation (Chronic) Thoracic aortic aneurysm without rupture (Chronic) Non-rheumatic aortic stenosis (Chronic) SORIN on CPAP (Chronic) Atherosclerotic heart disease of [place] coronary artery without angina pectoris (Chronic) Mild per cath 08/10/02 Pure hypercholesterolemia (Chronic) Essential hypertension (Chronic) BPH (benign prostatic hyperplasia) (Chronic) Multiple myeloma (Chronic) Hypothyroidism (Chronic) Allergies/Adverse Reactions: Allergies adhesive tape Adverse Reaction (Verified 09/15/19 11:29) Other levofloxacin [From Levaquin] Adverse Reaction (Verified 09/15/19 11:29) PT UNSURE OF REACTION unable to sleep Home Medications: Ambulatory Orders Medication Instructions Recorded Albuterol IH (ProAir) [Proair Hfa] 1 puff INHALATION Q6H PRN PRN 12/15/18 Levothyroxine Sodium 50 mcg PO DAILY 12/15/18 Acetaminophen [Tylenol] 1,000 mg PO Q6H PRN PRN tab 12/30/18 Mineral Oil/Petrolatum,White 1 applic TOPICAL QHS jar 12/30/18 [Eucerin] Smz/Tmp Ds [Bactrim Ds] 1 tab PO BID #40 tab 12/30/18 Tamsulosin HCl [Flomax] 0.4 mg PO DAILY@1730 #30 cap 12/30/18 apixaban 5 mg tablet 5 mg PO BID #180 tab 03/22/19 atorvastatin 20 mg tablet 10 mg PO QHS #45 tab 03/22/19 amiodarone 100 mg tablet 100 mg PO DAILY #90 tab 07/11/19 furosemide 40 mg tablet 20 mg PO DAILY PRN tab 08/30/19 Finasteride [Proscar] 5 mg PO QHS 09/08/19 Hydrocodone/Acetaminophen 1 - 2 ea PO Q6H PRN PRN 09/08/19 [Hydrocodon-Acetaminophen 5-325] - Social History SMOKING STATUS:: Former smoker Vital Signs Temp Pulse Resp BP Pulse Ox 97.7 F L 72 16 118/71 97 09/15/19 19:10 09/15/19 19:10 09/15/19 19:10 09/15/19 19:10 09/15/19 19:10 Oxygen Delivery Method Room Air Weight: 105.233 kg Body Mass Index (BMI) 33.3 Laboratory Tests Past 24 Hrs 09/11/19 09:35 COVID-19 (YOSI) Not Detected - Other Studies Radiology: [] reviewed Other Studies: [] Route of nutrition/ use of supplements: [] Nutritional Intake: [] IV Site: [] Grove Catheter: [] - Physical Exam General: Alert, Oriented x3, Cooperative, No apparent distress HEENT: Atraumatic, PERRLA, EOMI Neck: Supple, No Nodes Lungs: Clear to auscultation, Normal air movement Cardiovascular: Regular rate, Regular Rhythm Abdomen: Soft, Non Tender, Non-Distended Extremities: No edema Skin: No rashes IV Site: Peripheral, without redness Musculoskeletal: No Tenderness to Palpation of Joints or Extremities Neurological: Cranial nerves II-XII grossly intact - Assessment/Plan Antibiotics: [] Assessment/Plan: [] Chronic uti, (+) ucx with esbl ecoli. Now s/p TURP with removal of urolift 09/15/[address] Davila which should help with source control. On meropenem inpatient. Given clinical stability and known sensitivity to bactrim, I think discharge on po bactrim DS bid would be the best choice (other options would be long course of fosfomycin po or ertapenem IV), plan on at least 4 week course. Would continue iv tucker while in the hospital. ID followup in 1-2 weeks. Will follow, thank you. D/w complex case manager.
[2019-09-16 03:10] VITALS: BP 92/60; PULSE 65; RESP 18; TEMP 36.4; O2SAT 98
[2019-09-16] MEDS: Levothyroxine 50 MCG Tablet PO (06:03)
[2019-09-16 07:04] LABS: Hematocrit 35.6 % (40-54); Hemoglobin 11.5 g/dL (13.0-16.5); Mean Corp Hgb Conc 32.3 g/dL (32-36); Mean Corpuscular Volume 105.3 fL (80-94); Mean Platelet Vol. 10.9 fl (6.2-12.0); Platelet Count 108 K/mm3 (150-450); RBC Distribution Width CV 13.5 % (11.6-14.6); RBC Distribution Width SD 52.5 fl (35.1-43.9); Red Blood Count 3.38 M/mm3 (4.6-6.2)
[2019-09-16 07:19] LABS: Anion Gap 6 (5-15); BUN 20 mg/dL (7-18); BUN/Creat Ratio 24.2 RATIO (10-20); Calcium,Total 8.1 mg/dL (8.5-10.1); Chloride 111 mmol/L (98-107); Creatinine, Serum 0.82 mg/dL (0.70-1.30); EST Glomerular Filtration Rate 95 mL/min (>60); Est Glom Filt Rate - Afr Amer 115 mL/min (>60); Estimated Creatinine Clearance 72.95 ml/min; Glucose 119 mg/dL (74-106); Potassium 4.3 mmol/L (3.5-5.1); Sodium Level 141 mmol/L (136-145)
[2019-09-16] MEDS: 0.9% Normal Saline 1,000 ML 75 ML IV (08:01)
--- NOTE | 2019-09-16 08:43 | PCM.PN.BLA ---
Progress Note 79-year-old male status post TURP for recurrent infection status post failed UroLift still is having problems and infections the resection has been done UroLift clips removed he is on meropenem for his resistant E. coli infection will can continue with that probably discharge tomorrow evening with Bactrim for about 3 weeks infectious disease saw the patient appreciate their input.
[2019-09-16 08:54] VITALS: BP 106/58; PULSE 57; RESP 16; TEMP 36.7; O2SAT 97
[2019-09-16] MEDS: Amiodarone 200 MG Tablet 100 MG PO (09:05)
[2019-09-16] MEDS: Pantoprazole Sodium 40 MG Tablet PO (09:05)
[2019-09-16] MEDS: Docusate Sodium 100 MG Capsule PO ×2 (09:06→21:37)
[2019-09-16 14:47] VITALS: BP 131/71; PULSE 73; RESP 16; TEMP 36.7; O2SAT 100
--- NOTE | 2019-09-16 15:10 | CASEMGMT ---
LUDA BABCOCK JEWEL BEARING DRILLER CM to room to meet with patient for initial transition planning/care coordination assessment. RN YOKO introduced self and role at [facility]. Pt voices understanding and consents to assessment at this time. Pt sitting up in bed in no distress at this time. at bedside. Pt is A/O at this time and answers all questions appropriately. Care providers, pharmacy, and demographics verified at this time. PCP: Dr Leger Specialists: Dr Maki-pain mgmt, Dr Reddy--cardiology, Dr Davila-urology, Dr Terry--oncology Preferred Pharmacy: [facility] Insurance: MCR, [employer] Prescription Benefit: Yes Living Will/HPOA: Has both LW and Healthcare POA, who is his , Marie. Copies of both are on e-file @ [facility]. LNOK: , Marie Living Arrangements: Lives w/his . Independent. /pt share home mgmt tasks. DME: States has the following DME: shower chair, hand held shower, lift chair, CPAP. Pt states no need for further DME at this time. HHC/SNF: Hx of RU. No hx of HHC. Declines need for HHC or OP therapy. States he and his try to go to [place] to work out 3 x's/week when able. Pt wishes to return home and states has no concerns with going home at time of discharge. CM to follow for any discharge planning/needs. Pt/ voice no concerns/needs at this time. Advised pt/ to ask for CM if any questions/concerns/needs arise. They voice understanding. PLAN: Home Per ID and Dr Davila, anticipate pt will discharge home on PO atb's. Keyla CIFUENTES RN, CM
[2019-09-16] MEDS: Tamsulosin HCl 0.4 MG Capsule PO (16:43)
[2019-09-16 19:49] VITALS: BP 131/62; PULSE 75; RESP 16; TEMP 36.9; O2SAT 99
[2019-09-16 20:13] VITALS: PULSE 69
[2019-09-16] MEDS: 0.9% NaCl Peripheral Flush Adult/Peds IV (21:37)
[2019-09-16] MEDS: Atorvastatin Calcium 10 MG Tablet PO (21:37)
[2019-09-17 02:20] VITALS: BP 120/68; PULSE 68; RESP 16; TEMP 36.4; O2SAT 100
[2019-09-17] MEDS: Levothyroxine 50 MCG Tablet PO (05:46)
--- NOTE | 2019-09-17 06:16 | NURSING ---
Wears SCDS intermittently d/t the fact that he is getting up frequently to void in the bathroom.
[2019-09-17 08:05] VITALS: BP 150/82; PULSE 66; RESP 17; TEMP 36.6; O2SAT 100
[2019-09-17] MEDS: Pantoprazole Sodium 40 MG Tablet PO (09:52)
[2019-09-17] MEDS: Docusate Sodium 100 MG Capsule PO (09:52)
[2019-09-17] MEDS: Amiodarone 200 MG Tablet 100 MG PO (09:52)
[2019-09-17 15:00] VITALS: BP 131/75; PULSE 80; RESP 17; TEMP 36.6; O2SAT 100
== END 2019-09-17 16:43 | disposition home or self-care (01) | DRG 666 ==
LOC: SDC 09:08 → MS3 09:09
PROVIDERS: Anesthesiology; Admitting Provider Urology; PCP Family Medicine; Referring Provider Urology; Visit Provider Urology
DX: N39.0 Urinary tract infection, site not specified (principal); Z16.30 Resistance to unspecified antimicrobial drugs; I48.20 Chronic atrial fibrillation, unspecified; N13.8 Other obstructive and reflux uropathy; N41.1 Chronic prostatitis; N40.1 Benign prostatic hyperplasia with lower urinary tract symptoms; B96.20 Unspecified Escherichia coli [E. coli] as the cause of diseases classified elsewhere; Z11.59 Encounter for screening for other viral diseases; I25.10 Atherosclerotic heart disease of native coronary artery without angina pectoris; E78.00 Pure hypercholesterolemia, unspecified; I10 Essential (primary) hypertension; Z79.02 Long term (current) use of antithrombotics/antiplatelets; Z79.899 Other long term (current) drug therapy; Z87.891 Personal history of nicotine dependence; Z86.718 Personal history of other venous thrombosis and embolism; E03.9 Hypothyroidism, unspecified; J44.9 Chronic obstructive pulmonary disease, unspecified; Z79.51 Long term (current) use of inhaled steroids
CPT/HCPCS: 36415; 80048; 85027; 87635; 88305; G2023; J2185; J7030; J7120; A4216; J2405; U0003

== ENCOUNTER 2020-01-22 12:00 | Outpatient (RCR) | payer MEDICARE, OTHER, SELFPAY ==
[2019-09-15 15:10] VITALS: BMI 33.3
--- NOTE | 2019-12-21 13:03 | HP.PTEVAL_ITS ---
Patient's Visit Information ADDISON AGGARWAL is a 79 year old M referred to Physical Therapy by Dr. Fay Maki MD with a diagnosis of BACK AND LEG PAIN. Date of Evaluation: 12/21/19 Physical Therapist: Lauren Paredes PT, Cert MDT - Visit Plan Frequency: 2x /Week Duration: 4-6 Weeks Plan: POSTURE CORRECTION/STRENGTHENING, INSTRUCTION IN APPROPRIATE BODY MECHANICS AND ACTIVITY MODIFICATIONS. SLOW PROGRESSION OF DLS STARTING WITH A NEUTRAL SPINE PROGRESSING ROM TOLERATED. SLOW PROGRESSION OF JORGE LE ROM, STRETCHING AND STRENGTHENING. HEP INSTRUCTION. - Subjective Work/Leisure: RETIRED. Present symptoms: LOW BACK PAIN. Present since: SINCE 2011. Pain Scale: WORST 9/10, LEAST 1/10. Currently: 03/10. Commenced as a result of: ABOUT 2010 FALL ON STEPS - SEE ABOVE. AND MORE GENERAL JORGE LBP STARTING IN 2011 WITH DX OF MULTIPLE MYELOMA. Symptoms at onset: RIGHT BACK (HIGHER). 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 PATIENT REPORTS HE HAS THE MOST PAIN IN THE MORNING. USES A CANE TO GET THE MAIL SOMETIMES BECAUSE OF THE PAIN. Better: SITTING DOWN, HYDROCODONE. Disturbed sleep: NO. Previous history/Previous treatment: DX WITH MULTIPLE MYELOMA IN 2011 AND THAT IS WHEN BACK PAIN MAINLY STARTED BUT HE DID HAVE A FALL ON STEPS AT [employer] AND HIT HIS BACK ON THE STEP ON HIS RIGHT SIDE AND THAT PAIN IS ABOVE THE OTHER JORGE LOW BACK PAIN HE GETS. PAIN MGMT - [facility]. PHYSICAL THERAPY. NO BACK SURGERY. CONSULT WITH [facility] AND WAS TOLD SURGERY WOULD NOT HELP TWO YEARS AGO. WAS GIVEN A BACK BRACE BUT PATIENT REPORTS IT WAS TOO LIMITING AND DOES NOT WEAR IT NOW. NO CHIROPRACTOR. LAST [facility] WAS ABOUT 2 MONTHS AGO AND GAVE HIM SOME TEMPORARY RELIEF. MIGHT BE GETTING ANOTHER SHOT NEXT MONTH. Coughing/sneezing/straining: NEGATIVE. Gait: PATIENT REPORTS HE WALKS WITH A LIMP ON HIS LLE AND IT IS WORSE SOMETIMES MORE THAN OTHER. OCCASSIONALLY USES A CANE. PATIENT REPORTS HIS LEFT KNEE HAS BEEN GIVING HIM TROUBLE FOR AOBUT A YEAR AND CAUSES HIM TO FALL SUDDENLY. STATES HE IS CAREFUL HOW HE WALKS AND HOW HE STANDS BECAUSE HE DOESN'T WANT TO FALL. STATES THAT HE HASN'T HURT HIMSELF FALLING SO FAR. 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 ALSO FELL GETTING OFF OF [employer]. PATIENT IS A [employer] MEMBER. WORKED OUT YESTERDAY AND PLANS TO CONTINUE TO COME TO EX. Difficulty initiating urinatin: NO. Accidents: NO. Unexplained weight loss: NO. Imaging: PATIENT REPORTS HE HAS HAD MULTIPLE X-RAYS AND MRI'S OF HIS BACK WITH THE MOST RECENT BEING ABOUT A YEAR OR TWO AGO. MRI 2019: HISTORY:Multiple myeloma, low back pain across hips, history of fall. Multiple myeloma, low back pain across hips, history of fall. EXAMINATION: MR Spine Lumbar WO/W Contrast. TECHNIQUE: Multiplanar and multisequence MR images of the lumbar spine. IV Contrast dosage and agent: 20 cc dotarem. COMPARISON: August 17, 2017. FINDINGS: VERTEBRAE: The vertebral body height is relatively preserved. There is. anterior wedging of the T11 and T12 vertebral bodies that is probably. physiologic and is seen on the prior study. Focal areas of increased signal. are seen on T1 and T2-weighted images within the T11 and T12 vertebral. bodies. These were seen on the prior study and are compatible with. hemangiomas. Modic type II changes are seen at the endplates throughout the lumbar spine. similar to prior study. Subchondral sclerosis is seen at the inferior endplate of L2 similar to. prior study. An area of signal is iso-to slightly hypointense to musculature is seen on. T1-weighted images. This is hyperintense to muscle on T2-weighted images. and demonstrates increased signal on STIR weighted images. This involves. the anterior lateral aspect of the L3 vertebral body. This does enhance. with contrast. This was not seen on the prior study and may represent a new. myelomatous lesion. There is abnormal signal is seen within the S1 vertebral body. This was. present on the prior study. Is there is increased signal on STIR weighted. imaging. There is also enhancement in this area postcontrast. Dextroscoliosis of the lumbar spine. l. CORD: Normal position and signal intensity of the conus medullaris. SOFT TISSUES: Unremarkable. T11- 12: Sagittal only there is decreased disc height and hydration without. evidence of the disc contrast normality or canal stenosis. No significant. neural foraminal narrowing. T12-L1 sagittal only: Decreased disc height and hydration. There is grade 1. retrolisthesis of T12 on L1 which is unchanged from prior study and appears. degenerative. No evidence of canal stenosis or neural foraminal narrowing. L1/L2: There is grade 1 retrolisthesis of L1 on L2 similar to prior study. Decreased disc height and hydration. There is a diffuse annular bulge. This. does efface the ventral thecal sac. There is a trefoil appearance of the. canal at this level similar to prior study. Facet arthrosis with bilateral. facet effusions. There is mild left and moderate right neural foraminal. narrowing. There is effacement of the right L1 nerve root within the neural. foramen similar to prior study. L2/L3: Decreased disc height and hydration with posterior osteophytes and. diffuse annular bulge. This was seen on the prior study and is similar. Trefoil appearance to the canal. Facet arthrosis with ligamentum flavum. hypertrophy. Mild left and moderate to marked right neural foraminal. narrowing. There is effacement of the right L2 nerve root within the. foramen and laterally. This was seen on the prior study. L3-4 there are posterior osteophytes and a diffuse annular bulge. There is. a disc extrusion extends superior to the posterior L3 vertebral body. This. measures approximately 1 cm craniocaudad. There is was present on the prior. study and is unchanged. Trefoil appearance of the canal with facet. arthrosis and ligamentum flavum hypertrophy. There is mild to moderate left. and moderate right neural foraminal narrowing. There is effacement of the. right L3 nerve root as it exits the foramen. L4/L5: Decreased disc height and hydration with posterior osteophytes that. efface the ventral thecal sac. Trefoil appearance the canal. Ligamentum. flavum hypertrophy and facet arthrosis. There is also subarticular recess. narrowing at this level. Moderate bilateral neural foraminal narrowing. greater on the left. Effacement of the left L4 nerve root as it exits the. foramen. There is a large left lateral marginal spur that was seen on the. prior study and is similar. L5/S1: There is abnormal STIR weighted increased signal within the disc as. well as the S1 vertebral body. There is was seen on the prior study but. more prominent on today's study and more prominent involvement of the disc. There is intravertebral disc protrusion that is seen at the level of S1. This area does enhance with contrast. I suspect this may also represent. myelomatous involvement. There is a diffuse annular bulge. Disc material extends into the neural. foramen bilaterally but greater on the left. There is subarticular recess. narrowing. Impingement on the right L5 nerve root within the foramen and as. it exits the foramen and the left L5 nerve root as it exits the foramen. MRI/Spine Lumbar W/WO Contrast. IMPRESSION: . Multifocal degenerative change within the lumbar spine as discussed. There is an enhancing lesion within the L3 vertebral body that is suspect. for a myelomatous lesion. In addition there is increased STIR signal seen. within the L1 vertebral body. This is slightly more prominent than on the. prior study. There is intravertebral disc protrusion as well as a focal. enhancing lesion at the disc also enhances. I suspect there is mild augment. his involvement at this level. There is also an intravertebral disc. protrusion. Progressive compression of the L1 vertebral body is suspect. . at 2242 . Reported and signed by: Karen Ayala DO. . Electronically Signed: Karen Ayala DO. at 22:41 EDT. PMH: Multiple myeloma. ATRIAL FIB. HTN. RIGHT TKR. NO CVA. NO HEART ATTACKS. NOT DIABETIC. OTHER: LIVES WITH AND SHE IS IN PRETTY GOOD HEALTH. - Objective Sitting/Standing Posture: POOR. INCREASED KYPHOSIS, DECREASED LORDOSIS. INCREASED TRUNK FLEXION. Active Correction of posture: NE. Other Observations: THIS PATIENT AMBULATES INDEP'LY INTO PT LIMPING ON THE LLE AND WEARING A LEFT KNEE SLEEVE. NO LOB. BANDAGE ON LEFT SAEED. DISCOLORATION OF S KIN VISIBLE ON ARMS, HANDS AND LEGS. INDEP TRANSFER SIT TO STAND BUT UE DEPENDENT TO DO SO. Motor deficit: JORGE LE WEAKNESS AND CLICKING IN THE LEFT KNEE. JORGE HIPS GROSSLY 3+ TO 4-/5, KNEE EXT 4-/5, KNEE FLEX 4-/5, ANKLE DORSIFLEX 5/5. ROM deficit: TIGHT JORGE HIP FLEXORS, HS'S AND GASTROC SOLEUS COMPLEX'S. Reflexes: NT. Lumbar mvmt loss: flex - MOD. ext - SIMONE. R SG - SIMONE. L SG - SIMONE. PATIENT DENIES INCREASED PAIN WITH LUMBAR ROM TESTING ALL PLANES. Core strength: POOR. Palpation: NO ACUTE LUMBAR TENDERNESS. OTHER: PATIENT REPORTS HE BUMPED HIS SAEED YESTERDAY AND HAS AN OPEN SPOT NOW (L). GETTING CHEMO TREATMENTS 3 X'S A MONTH AT [facility]. TREATMENT: NEUROMUSCULAR REEDUCATION - RETRAINING OF MVMT AND POSTURE FOR SITTING, LYING AND STANDING ACTIVITIES. OTHER: PATIENT REPORTS HE DEFINATELY DOES NOT WANT TO USE A WALKER AND WILL CONDIDER USING A CANE MORE AT THIS PT'S RECOMMENDATION. - Goals Goal 1:: DECREASE C/O BACK PAIN Goal Time Frame: 4-6 Weeks Goal 2:: IMPROVE STANDING AND WALKING FUNCTION Goal Time Frame: 4-6 Weeks Goal 3:: INSTRUCT IN PROPHYLAXIS Goal Time Frame: 4-6 Weeks - Anticipated Interventions Patient/Client Instruction: Educate patient on: Condition, Plan of Care, Risk Factors, Benefits of Fitness Program For the Purpose of:: To improve self management Therapeutic Exercise to Include: Strength training, Body mechanics, Postural training, Flexibilty training, Gait and locomotor training, Neuromotor development, Dynamic Lumbar Stabilization For the Purpose of:: To decrease pain, To increase ROM, To improve muscle performance and motor function, To increase tolerance to activity/condition/position, To improve ability of physical actions for home /community/work/leisure, To improve gait and locomotor functions Thank you for the opportunity to evaluate your patient. For Medicare and Medicare HMO plans, please review the plan of care and approve it. It will need to be FAXED BACK to us at [phone] for Medicare purposes. For Medicare only, by signing this I certify the plan of care. Please let me know if there are questions or concerns regarding this plan of care. Physician Signature: Date:
--- NOTE | 2020-01-22 12:27 | HP.PTREVAL ---
Dr. Fay Maki MD, It has been my pleasure to treat ADDISON AGGARWAL over the last 10 visits for BACK AND LEG PAIN. Please see the progress note below for an update on the physical therapy plan of care! Subjective: PATIENT REPORTS HE CAN TOLERATE STANDING BETTER NOW. STATES THAT THE THING THAT BOTHERS HIM THE MOST IS SITTING ON THE TALL STOOL IN HIS SHOP. PATIENT REPORTS THAT HE GENERALLY FEELS BETTER SINCE STARTING PT. USE TO HAVE TO SIT DOWN WHILE TAKING A SHOWER BUT NOW CAN STAND THE HOLE TIME. PATIENT REPORTS THE SHOTS FROM DR. MAKI HELP TOO. 7-8/10 LBP AT ITS WORST NOW AND IT ABOLISHES OR NEARLY ABOLISHES WITHIN 15 MIN MAX. Objective/Function: ALL GOALS MET. INDEP GYM AND HOME EX PROGRAMS. JORGE LE STRENGTH GROSSLY 4-5/5 NOW. LUMBAR ROM HAS NOT CHANGED BUT PAIN LEVELS HAVE IMPROVED. REINFORCEMENT OF PRIOR HOME INSTRUCTIONS GIVEN TODAY. PATIENT HAD QUESTIONS ABOUT LUMBAR SUPPORT AND THIS PT ABLE TO ADDRESS. Plan Plan: D/C TO INDEP EX. PATIENT IS AGREEABLE. Goals Goal 1:: DECREASE C/O BACK PAIN Goal Time Frame: 4-6 Weeks Goal Progress: Goal Met Goal 2:: IMPROVE STANDING AND WALKING FUNCTION Goal Time Frame: 4-6 Weeks Goal Progress: Goal Met Goal 3:: INSTRUCT IN PROPHYLAXIS Goal Time Frame: 4-6 Weeks Goal Progress: Goal Met Anticipated Interventions Patient/Client Instruction: Educate patient on: Condition, Plan of Care, Risk Factors, Benefits of Fitness Program For the Purpose of:: To improve self management Therapeutic Exercise to Include: Strength training, Body mechanics, Postural training, Flexibilty training, Gait and locomotor training, Neuromotor development, Dynamic Lumbar Stabilization For the Purpose of:: To decrease pain, To increase ROM, To improve muscle performance and motor function, To increase tolerance to activity/condition/position, To improve ability of physical actions for home/community/work/leisure, To improve gait and locomotor functions Please do not hesitate to contact me at [phone] by phone or if you have questions or concerns regarding this new plan of care! Sincerely, Lauren Paredes, PT, Cert MDT
--- NOTE | 2020-03-06 11:00 | HP.PTDCSUM_ITS ---
It has been my pleasure to treat ADDISON AGGARWAL referred by Dr. Fay Maki MD, with the diagnosis of BACK AND LEG PAIN for a total of 10 visit(s). Discharge Date: Please see the following information for a summary of their discharge status. Subjective: PATIENT REPORTS HE CAN TOLERATE STANDING BETTER NOW. STATES THAT THE THING THAT BOTHERS HIM THE MOST IS SITTING ON THE TALL STOOL IN HIS SHOP. PATIENT REPORTS THAT HE GENERALLY FEELS BETTER SINCE STARTING PT. USE TO HAVE TO SIT DOWN WHILE TAKING A SHOWER BUT NOW CAN STAND THE HOLE TIME. PATIENT REP ORTS THE SHOTS FROM DR. MAKI HELP TOO. 7-10/08 LBP AT ITS WORST NOW AND IT ABOLISHES OR NEARLY ABOLISHES WITHIN 15 MIN MAX. LOW BACK Pain Intensity (Out of 10): 0 % Improvement: 50 Objective/Function: ALL GOALS MET. INDEP GYM AND HOME EX PROGRAMS. JORGE LE STRENGTH GROSSLY 4-5/5 NOW. LUMBAR ROM HAS NOT CHANGED BUT PAIN LEVELS HAVE IMPROVED. REINFORCEMENT OF PRIOR HOME INSTRUCTIONS GIVEN TODAY. PATIENT HAD QUESTIONS ABOUT LUMBAR SUPPORT AND THIS PT ABLE TO ADDRESS. Goal 1:: DECREASE C/O BACK PAIN Goal Progress: Goal Met Goal 2:: IMPROVE STANDING AND WALKING FUNCTION Goal Progress: Goal Met Goal 3:: INSTRUCT IN PROPHYLAXIS Goal Progress: Goal Met Plan: D/C TO INDEP EX. PATIENT IS AGREEABLE. If there are questions or concerns regarding this patient's physical therapy, please feel free to call me at [phone]. Thank you for the referral of this patient. Sincerely, Lauren Paredes, PT, Cert MDT
== END 2020-01-22 19:00 | disposition home or self-care (01) ==
LOC: PT 12:00
PROVIDERS: PCP Family Medicine; Referring Provider Anesthesiology Pain Medicine; Visit Provider Anesthesiology Pain Medicine
DX: M54.9 Dorsalgia, unspecified (principal); M79.606 Pain in leg, unspecified
CPT/HCPCS: 97110; 97112; 97162; 97164; 97530

== ENCOUNTER → 2020-03-21 13:59 | Outpatient (CLI) | payer MEDICARE, OTHER, SELFPAY ==
[2020-03-21 13:18] VITALS: BMI 34.6
[2020-03-21 15:38] LABS: AST(SGOT) 32 U/L (15-37); Alanine Aminotransfer ALT/SGPT 37 U/L (16-61); Albumin, Serum 3.1 g/dL (3.2-5.0); Alkaline Phosphatase 53 U/L (45-117); Anion Gap 6 (5-15); BUN 23 mg/dL (7-18); BUN/Creat Ratio 23.4 RATIO (10-20); Bilirubin, Direct 0.14 mg/dL (0.00-0.30); Calcium,Total 8.6 mg/dL (8.5-10.1); Chloride 109 mmol/L (98-107); Cholesterol 179 mg/dL (200); Creatinine, Serum 0.98 mg/dL (0.70-1.30); EST Glomerular Filtration Rate 78 mL/min (>60); Est Glom Filt Rate - Afr Amer 94 mL/min (>60); Globulin 3.6 g/dL (2.2-4.2); Glucose 138 mg/dL (74-106); High Density Lipoprotein 71 mg/dL; Potassium 3.6 mmol/L (3.5-5.1); Protein, Total 6.7 g/dL (6.4-8.2); Sodium Level 140 mmol/L (136-145); T4 Free Direct 1.27 ng/dL (0.76-1.46); Thyroid Stim Hormone (TSH) 4.49 uIU/mL (0.358-3.74); Triglycerides 131 mg/dL; Very Low Density Lipoprotein 26 mg/dL (5-40)
== END ==
PROVIDERS: PCP Family Medicine; Visit Provider Internal Medicine Cardiovascular Disease
DX: E78.00 Pure hypercholesterolemia, unspecified (principal); I10 Essential (primary) hypertension; I25.10 Atherosclerotic heart disease of native coronary artery without angina pectoris; I48.20 Chronic atrial fibrillation, unspecified; I71.2 Thoracic aortic aneurysm, without rupture; R60.0 Localized edema; Z79.899 Other long term (current) drug therapy
CPT/HCPCS: 36415; 80048; 80061; 80076; 84439; 84443

== ENCOUNTER 2020-03-29 09:49 | Outpatient (RCR) | payer MEDICARE, OTHER, SELFPAY ==
[2020-03-21 13:18] VITALS: BMI 34.6
== END 2020-03-29 23:59 ==
LOC: IMMUN 09:49
PROVIDERS: PCP Family Medicine; Visit Provider Family Medicine
DX: Z23 Encounter for immunization (principal)
CPT/HCPCS: 0011A; 0012A; 91301

== ENCOUNTER → 2020-04-03 08:46 | Outpatient (CLI) | payer MEDICARE, OTHER, SELFPAY ==
[2020-03-21 13:18] VITALS: BMI 34.6
--- NOTE | 2020-04-03 08:50 | ECHOD_ITS ---
Reason For Study: MURMUR Procedure This was a 2D Doppler, Color Flow transthoracic echocardiogram. The study was technically difficult. Exam performed in department. Left Ventricle Normal LV size. Left ventricular systolic function is normal. The estimated ejection fraction is 65 %. Unable to assess diastolic dysfunction. No regional wall motion abnormalities noted. Right Ventricle Normal RV size. Normal systolic function. Atria The left atrium is severely enlarged. Normal right atrium. No doppler evidence for ASD. Mitral Valve There is moderate to severe mitral annular calcification. Extension of the mitral annular calcification onto the mitral valve leaflets. Mild (1+) mitral valve insufficiency. Tricuspid Valve Normal tricuspid valve. Mild tricuspid valve insufficiency. Unable to estimate RV systolic pressure/pulmonary artery pressure due to technically difficult study. Aortic Valve Trisinus/trileaflet aortic valve. Moderate diffuse aortic valve thickening. Moderate diffuse aortic valve calcification. Severe aortic stenosis. Pulmonic Valve The pulmonic valve is not well visualized. Trivial pulmonic valve insufficiency. Great Vessels Normal sized aortic root. Pericardium/Pleural No pericardial effusion. MMode/2D Measurements & Calculations LVIDd: 4.1 cm IVSd: 0.80 cm LVOT diam: 2.0 cm LVIDs: 2.8 cm LVPWd: 1.0 cm LVOT area: 3.2 cm2 FS: 32.5 % Ao root diam: 3.7 cm LAV(MOD-bp): 115.9 ml LA A4 area: 31.9 cm2 LAV(MOD-bp) Indexed: 51.3 ml/m2 LAV(MOD-sp2): 103.2 ml LAV(MOD-sp4): 116.8 ml RA A4 area: 14.9 cm2 Time Measurements MV dec time: 0.46 sec Doppler Measurements & Calculations MV E max tyrell: 94.8 cm/sec Ao V2 max: 433.3 cm/sec LV V1 max: 101.6 cm/sec MV A max tyrell: 145.3 cm/sec Ao max P.1 mmHg LV V1 max P.1 mmHg MV E/A: 0.65 Ao V2 mean: 323.7 cm/sec LV V1 mean P.0 mmHg Ao mean P.5 mmHg LV V1 mean: 67.8 cm/sec Ao V2 VTI: 95.8 cm LV V1 VTI: 22.4 cm IGNACIO(I,D): 0.74 cm2 IGNACIO(V,D): 0.75 cm2 SV(LVOT): 71.3 ml PA V2 max: 81.7 cm/sec Interpretation Summary The study was technically difficult. Left ventricular systolic function is normal. The estimated ejection fraction is 65 %. The left atrium is severely enlarged. There is moderate to severe mitral annular calcification. Extension of the mitral annular calcification onto the mitral valve leaflets. Mild (1+) mitral valve insufficiency. Mild tricuspid valve insufficiency. Severe aortic stenosis. Trivial pulmonic valve insufficiency. Unable to estimate RV systolic pressure/pulmonary artery pressure due to technically difficult study. Unable to assess diastolic dysfunction. Ordering Physician: Harsh Rdedy Referring Physician: Tiburcio Leger Performed By: Ирина Valles RDCS, RVT
== END ==
PROVIDERS: PCP Family Medicine; Referring Provider Internal Medicine Cardiovascular Disease; Visit Provider Internal Medicine Cardiovascular Disease
DX: I25.10 Atherosclerotic heart disease of native coronary artery without angina pectoris (principal); R60.0 Localized edema; I71.2 Thoracic aortic aneurysm, without rupture; I48.20 Chronic atrial fibrillation, unspecified; E78.00 Pure hypercholesterolemia, unspecified; I10 Essential (primary) hypertension
CPT/HCPCS: 93306

== ENCOUNTER 2020-04-24 06:43 | Day surgery (SDC) | payer MEDICARE, OTHER, SELFPAY ==
[2020-03-21 13:18] VITALS: BMI 34.6
--- NOTE | 2020-04-12 09:12 | RAD_ITS ---
STUDY: X-RAY CHEST REASON FOR EXAM: Male, 80 years old. AORTIC VALVE STENOSIS, CAD TECHNIQUE: 2 views COMPARISON: Prior chest radiograph of 12/15/[address] of 02/09/2019. FINDINGS: Stable area of fibrotic change in the superior segment of the left lower lobe. No acute consolidation, atelectasis or other infiltrates. Normal cardiac size. Normal mediastinum and merlin. Normal visualized pulmonary arteries. Normal visualized aortic arch and descending thoracic aorta. Degenerative changes of the thoracic spine with an increased thoracolumbar kyphosis. Multiple old bilateral rib fractures and an old right scapular fracture deformity. There is no demonstrated abnormality of the visualized soft tissue structures of the upper abdomen. RAD/Chest PA and Lateral IMPRESSION: No acute cardiopulmonary findings or changes. Negative for new consolidation, atelectasis, cardiomegaly or pleural effusion. Electronically Signed: Beth Hobbs MD at 17:03 EST , Service support ,
[2020-04-12 09:34] LABS: Hematocrit 43.5 % (40-54); Mean Corp Hgb Conc 32.2 g/dL (32-36); Mean Corpuscular Hgb 34.9 pg (27.0-32.0); Mean Corpuscular Volume 108.5 fL (80-94); Mean Platelet Vol. 10.9 fl (6.2-12.0); Platelet Count 119 K/mm3 (150-450); RBC Distribution Width CV 14.7 % (11.6-14.6); RBC Distribution Width SD 59.4 fl (35.1-43.9); Red Blood Count 4.01 M/mm3 (4.6-6.2)
[2020-04-12 09:42] LABS: International Normalized Ratio 1.3; Prothrombin Time (Protime)PT. 15.2 SECONDS (11.7-14.9)
[2020-04-12 09:43] LABS: Partial Thromboplast Time 28.1 Seconds (24.1-36.2)
[2020-04-12 09:51] LABS: Anion Gap 4 (5-15); BUN 22 mg/dL (7-18); BUN/Creat Ratio 22.7 RATIO (10-20); Calcium,Total 8.9 mg/dL (8.5-10.1); Chloride 111 mmol/L (98-107); Creatinine, Serum 0.97 mg/dL (0.70-1.30); EST Glomerular Filtration Rate 79 mL/min (>60); Est Glom Filt Rate - Afr Amer 95 mL/min (>60); Glucose 146 mg/dL (74-106); Potassium 3.9 mmol/L (3.5-5.1); Sodium Level 141 mmol/L (136-145)
[2020-04-23 07:14] VITALS: BMI 34.5
--- NOTE | 2020-04-23 15:54 | HP.PCM_ITS ---
<Jose Raul Valadez BARBECUE COOK - Last Filed: 04/23/20 15:54> History and Physical Date of Admission: 04/24/20 History of Present Illness Details: This is an 80-year-old white male who presents today for a [facility] He has a history of underlying CAD, atrial fibrillation, aortic valve stenosis, thoracic aortic aneurysm, hyperlipidemia, and hypertension. He has previously been followed by [facility] cardiology. He also has a history of multiple myeloma in which he follows with Dr. Terry. Patient underwent echocardiogram on 04/03/2020 showed ejection fraction of 65% and severe aortic valve stenosis. Thus, he presents today to evaluate coronary anatomy with a heart catheterization to further guide valvular treatment. At the present time he denies any symptoms of angina pectoris. There is been no obvious evidence of acute CHF or pulmonary edema. He has developed some progressive lower extremity peripheral pitting edema. He has had no near syncope or syncope. He states he was hospitalized in 2019 for concerns of a UTI. Intake Vital Signs: See EMR Intake Visit Reasons: [facility] Singing Telegram Performer Required: No Accompanied by: Self Allergies adhesive tape Adverse Reaction (Verified 03/21/20 13:19) Other levofloxacin [From Levaquin] Adverse Reaction (Verified 03/21/20 13:19) PT UNSURE OF REACTION Medications See EMR [facility] Medical History Chronic atrial fibrillation (Chronic) Thoracic aortic aneurysm without rupture (Chronic) Non-rheumatic aortic stenosis (Chronic) SORIN on CPAP (Chronic) Atherosclerotic heart disease of robinson coronary artery without angina pectoris (Chronic) Pure hypercholesterolemia (Chronic) Essential hypertension (Chronic) Gram-negative bacteremia (Acute) Urinary retention (Acute) Prostatitis (Acute) Debility (Acute) Weakness (Acute) Hypotension (Acute) Dehydration (Acute) Edema (Acute) BPH (benign prostatic hyperplasia) (Chronic) Bacteremia (Acute) UTI (urinary tract infection) (Acute) MDRO (multiple drug resistant organisms) resistance (Acute) UTI due to extended-spectrum beta lactamase (ESBL) producing Escherichia coli (Acute) BPH w/o urinary obs/LUTS (Acute) Multiple myeloma (Chronic) Hypothyroidism (Chronic) Deep vein thrombosis (DVT) of right lower extremity (Acute) Knee pain (Acute) Surgical History History of total right knee replacement (TKR) (Resolved) Family History Father Heart disease Mother Heart disease CVA (cerebral vascular accident) Brother CAD (coronary artery disease) Social History (Updated 03/21/20 @ 13:[address] Harsh Reddy MD) Smoking Status: Former smoker alcohol intake: current substance use type: does not use caffeine: No ROS Const Const: Negative for fatigue, weakness, frequent falls, excessive sweating, weight gain or weight loss Eyes Eyes: Negative for transient loss of vision, blurry vision or change in vision ENT ENT: Positive for balance problems (occasional); negative for dizziness Cardio Chest Pain: No Palpitations: Yes (occasional) feels like its: skipping Edema: Bilateral (ankles) Muscle aches with walking: None Resp Respiratory: Positive for SOB with activity (baseline); negative for SOB at rest GI GI: Negative vomiting or vomiting blood/hematemesis : Negative for hematuria Musc Musc: Positive for muscle aches/ myalgia (Chronic back pain) and balance problems (occasional); negative for muscle weakness or joint pain Skin Skin: Negative non-healing lesions or rash Neuro Neuro: Negative for dizziness, lightheadedness, orthostatic symptoms, frequent falls, weakness or blurry vision Ghulam Hematologic/Lymphatic: Negative for easy bleeding Endo Endo: Negative for fatigue or excessive sweating Psych Psych: Negative for anxiety or depression Allergy Allergy/Immunology: Negative for hives, Negative for rash Cardiology Exam Const Appearance: cooperative, healthy appearing, comfortable, no acute distress, well developed and well groomed Nutritional Appearance: well nourished and obese Orientation: alert, awake and oriented x3 Head Head: normal to inspection, normocephalic and atraumatic Ears: hearing grossly normal bilaterally Nose: external nose normal Face and Sinus: face symmetric Eyes Eyelids: eyelids normal Conjunctivae: conjunctivae normal Pupils: PERRL EOM: EOM intact bilaterally Neck Neck: normal visual inspection, full ROM and no JVD Carotids: normal carotid upstroke Chest Chest inspection: normal inspection of the chest, symmetric chest movement and normal respiratory effort; negative cough Auscultation: Bilateral: Clear to Auscultation Cardio Palpation: normal PMI Rate: regular rate Rhythm: regular rhythm Heart sounds: S1 normal, S2 normal and murmur; negative rub or gallop Murmur: Grade 3/6, harsh, mid systolic, LLSB, LVOT, sternal notch and radiates to carotids GI GI: normal to inspection, soft, bowel sounds present and obese Neuro General: alert, awake, oriented x3 and moves all extremities Skin Skin: ecchymosis Extremities Pulses: Normal: Right Posterior Tibial Pulse, Left Posterior Tibial Pulse, Right Radial Pulse, Left Radial Pulse Lower Extremity Edema: +1: Bilateral Chronic bilateral lower extremity discoloration Psych Psychological: normal affect Assessment & Plan 1. Atherosclerosis of robinson coronary artery of robinson heart without angina pectoris I25.10 Mild per cath 08/10/02 Plan At the present time he does not describe any concerning symptoms at rest or with his activity. He will continue risk factor evaluation care as deemed appropriate. 2. Non-rheumatic aortic stenosis I35.0 Plan After last office visit he underwent echocardiogram on 04/03/2020. This showed ejection fraction of 65% and severe aortic valve stenosis with a mean pressure gradient of 45.5 mmHg, peak pressure gradient of 75.1 mmHg, and aortic valve area of 0.74 cm?. His care has been coordinated with oncology team. He will proceed with left heart catheterization to evaluate coronary anatomy and further guide to further guide valvular treatment. 3. Thoracic aortic aneurysm without rupture I71.2 Plan He will continue to be followed by history, exam, and echocardiographic studies. 4. Chronic atrial fibrillation I48.20 Plan He has a history of atrial fibrillation. At the moment he appears to be remaining in a regular rhythm. He will continue his medical management. He will need follow-up laboratory studies over time based upon being on his medications with respect to his amiodarone therapy. 5. Pure hypercholesterolemia E78.00 Plan He is on medical management. Again he can have follow-up laboratory studies in the future. 6. Essential hypertension I10 Plan His blood pressure appears to be reasonably well controlled. We will continue medical therapy. 7. Edema leg R60.0 Plan He will increase his furosemide to 20 mg daily and have follow-up laboratory studies. He will also have a follow-up echocardiogram to reassess his aortic valve stenosis, etc. Supplemental Info Supplemental Information Echocardiogram from 04/03/2020: Interpretation Summary The study was technically difficult. Left ventricular systolic function is normal. The estimated ejection fraction is 65 %. The left atrium is severely enlarged. There is moderate to severe mitral annular calcification. Extension of the mitral annular calcification onto the mitral valve leaflets. Mild (1+) mitral valve insufficiency. Mild tricuspid valve insufficiency. Severe aortic stenosis. Trivial pulmonic valve insufficiency. Unable to estimate RV systolic pressure/pulmonary artery pressure due to technically difficult study. Unable to assess diastolic dysfunction. Transthoracic echocardiogram: 12-15-18 Interpretation Summary The study was technically difficult. Contrast injection was performed. Based upon the 2D echocardiographic and contrast enhanced images obtained there appears to be grossly normal left ventricular size, wall motion, and systolic function. The estimated ejection fraction is 70 %. The left atrium is moderately enlarged. There is moderate mitral annular calcification. Extension of the mitral annular calcification onto the mitral valve leaflets. Mild (1+) mitral valve insufficiency. Trivial tricuspid valve insufficiency. Moderate aortic stenosis. Trivial pulmonic valve insufficiency. Right ventricular systolic pressure estimated to be 41 mmHg. Unable to assess diastolic dysfunction. According to [facility] records he has had previous echocardiographic studies as well as a diagnostic cardiac catheterization. That was performed at [facility] on 08-10-2002. At that time per the report the left main coronary artery had no significant disease, the LAD had mild to moderate scattered plaque but no high-grade stenosis, the LCx was nondominant and was noted to have no high-grade stenosis, the RCA was dominant and had proximal severe plaque but no high-grade stenosis. He was continued on medical management. Diagnostics Procedure Criteria Procedure Type: Elective COVID Risk Discussion: The surgeon/proceduralist and patient have discussed in detail the risk of exposure to and/or potential harm posed by the COVID-19 virus with having a surgery/procedure at this time versus the risk of delaying the surgery/procedure. It is not possible to know either the risk of delaying the surgery or procedure or chance of getting an infection with perfect accuracy, but a joint decision was made between the patient and the surgeon/proceduralist to proceed at this time with the scheduled surgery/procedure as indicated on the consent form. <Harsh Reddy - Last Filed: 04/24/20 07:30> History and Physical I have re-examined the patient. There are no clinical changes since date of exam.
--- NOTE | 2020-04-24 09:29 | CL.D_ITS ---
Patient Name: ADDISON AGGARWAL Study Date: 04/24/2020 Performing: Harsh Reddy MD Ht: 70.07 inches 178 cm : 1940 Wt: 240.3 lbs 109 kg Age: 80 Gender: male BSA: 2.26 PROCEDURE(S) PERFORMED [id number] ROOT ANGIO WITH HEART CATH CLINICAL PROFILE AND INDICATIONS Indications: Valvular Disease, Pre-Operative Evaluation Heart Failure: None Stress/Imaging Stress/Image Study Performed: No Angina Classification Anginal Classification w/in 2 Weeks: No symptoms CAD Presentations: No Sxs, no angina. CONCLUSIONS [place] Multivessel CAD Aortic Valve Calcification- Moderate Mitral Valve Annular Calcification Severe annular calcification RECOMMENDATIONS Risk factor modification Medical therapy Surgery consult for coronary revascularization Surgery consult for valvular disease DESCRIPTION OF PROCEDURE The patient arrived to the procedure lab. The risks and benefits of the procedure as well as a full d escription of our services here and current unavailability of surgical backup were fully explained to the patient and/or their significant other prior to the catheterization. The Timeout was completed, verifying the correct patient and procedure. The patient's procedural site was prepped and draped in the usual fashion. Local anesthetic was given subcutaneously to right radial region with Lidocaine 2% . Using a modified Seldinger technique, arterial access was obtained via the right radial artery, a 6 Fr sheath was inserted. Right Coronary Artery selective angiography was then performed in multiple v iews using a 5 Fr. 4.0 Reagan catheter. Left Coronary Artery selective angiography was performed in mu ltiple views using a 5 Fr. 4.0 Reagan catheter. Left Coronary Artery selective angiography was perform ed in multiple views using a 5 Fr. JL3.5 catheter. Left Ventriculography was performed in STEVENSON projection using a 5 Fr. Pigtail catheter. Ascending (root) aorta selective angiography was then performed in single view. Ascending (root) aorta selective angiography was then performed in single v iew.The arterial sheath was pulled and a TR Band was applied for hemostasis w/ 13ml air CORONARY ANGIOGRAPHY DOMINANCE: Left Dominant LEFT HEART ASSESSMENT Left Ventricular Ejection Fraction: Not assessed LEFT MAIN: Moderate calcification, Mild luminal irregularities LEFT ANTERIOR DESCENDING ARTERY: PROX LAD: Moderate calcification, Mild luminal irregularities MID LAD: Mild luminal irregularities CIRCUMFLEX ARTERY: PROX CIRC: Moderate calcification, Mild luminal irregularities MID CIRC: Mild luminal irregularities OM 1: Proximal - Mild luminal irregularities RIGHT CORONARY ARTERY: PROX RCA: Moderate calcification MID RCA: 90 % Stenosis VALVE FINDINGS: Aortic Valve Calcification - moderate Mitral Valve Annular Calcification Severe AORTIC ROOT: Angiographically normal COMPLICATIONS No Complications PROCEDURE MEDICATIONS Versed 1 mg IV Fentanyl 50 mcg IV Versed 1 mg IV Fentanyl 50 mcg IV Oxygen: 2 L/min via nasal cannula Heparin diluted in 23cc Heparinized saline. Patient given 10cc IA of this solution. 04/24/2020 08:17: 09 Verapamil 2.5mg, Ntg 100mcgs, 2000 units of Heparin diluted in 23cc Heparinized saline. Patient give n 10cc IA of this solution. 04/24/2020 08:17:09 SUMMARY OF HEMODYNAMIC DATA Time AIR REST ECG 07:06:57 AO 120/73 (92) SA 08:20:38 AO 132/72 (97) 08:31:11 Signed By Harsh Reddy MD On 04/24/2020 09:28:47 Harsh Reddy MD
== END 2020-04-24 11:40 | disposition home or self-care (01) ==
PROVIDERS: PCP Family Medicine; Referring Provider Internal Medicine Cardiovascular Disease; Visit Provider Internal Medicine Cardiovascular Disease
DX: I25.10 Atherosclerotic heart disease of native coronary artery without angina pectoris (principal); I35.0 Nonrheumatic aortic (valve) stenosis; I71.2 Thoracic aortic aneurysm, without rupture; I10 Essential (primary) hypertension; E78.5 Hyperlipidemia, unspecified; C90.00 Multiple myeloma not having achieved remission; I48.20 Chronic atrial fibrillation, unspecified; G47.33 Obstructive sleep apnea (adult) (pediatric); E66.9 Obesity, unspecified; Z86.718 Personal history of other venous thrombosis and embolism; Z87.891 Personal history of nicotine dependence
CPT/HCPCS: 36415; 71046; 80048; 85027; 85610; 85730; 93005; 93454; 93567; 99152; 99153; J7040; Q9967; C1769; C1894

== ENCOUNTER → 2020-05-01 10:53 | Outpatient (CLI) | payer MEDICARE, OTHER, SELFPAY ==
[2020-04-23 07:14] VITALS: BMI 34.5
[2020-05-01 11:25] LABS: Amphetamine Urine VISTA NEGATIVE (<1000 ng/mL); Barbiturate Urine VISTA NEGATIVE (< 200 ng/mL); Benzodiazepine Urine VISTA NEGATIVE (< 200 ng/mL); Cocaine Urine VISTA NEGATIVE (< 300 ng/mL); Ecstacy Urine VISTA NEGATIVE (< 500 ng/mL); Methadone Urine VISTA NEGATIVE (< 300 ng/mL); PCP Urine VISTA NEGATIVE (< 25 ng/mL); THC Urine VISTA NEGATIVE (< 50 ng/mL); Vista UDS pH Range 5
== END ==
PROVIDERS: PCP Family Medicine; Referring Provider Anesthesiology Pain Medicine; Visit Provider Anesthesiology Pain Medicine
DX: F11.20 Opioid dependence, uncomplicated (principal)
CPT/HCPCS: 80307

== ENCOUNTER → 2020-05-09 12:36 | Outpatient (CLI) | payer MEDICARE, OTHER, SELFPAY ==
[2020-04-23 07:14] VITALS: BMI 34.5
--- NOTE | 2020-05-09 12:50 | RAD_ITS ---
STUDY: X-RAY - RIGHT SHOULDER REASON FOR EXAM: Shoulder pain since Wednesday, multiple myeloma. TECHNIQUE: 4 view(s) of the shoulder. COMPARISON: Radiographs 01/23/2019. FINDINGS: Normal glenohumeral articulation. There is acromioclavicular arthrosis. There is a lytic lesion in the distal clavicle with pathologic fracture, best visualized on the internal rotation view. Normal acromion. There is a lesion with sclerosis in the scapular body, likely from treated multiple myeloma. Normal humeral head and visualized proximal humerus. The soft tissue structures are unremarkable. Normal visualized pulmonary apex. RAD/Shoulder min 2 Views IMPRESSION: Lytic lesion in the distal clavicle from multiple myeloma with pathologic fracture. Acromioclavicular arthrosis. Sclerotic lesion of the scapular body suggestive of healed focus of multiple myeloma. Electronically Signed: Freeman Rogel MD at 13:22 EST Tel , Service support ,
== END ==
PROVIDERS: PCP Family Medicine; Visit Provider Anesthesiology Pain Medicine
DX: M25.511 Pain in right shoulder (principal)
CPT/HCPCS: 73030

== ENCOUNTER → 2020-05-15 07:01 | Outpatient (CLI) | payer MEDICARE, OTHER, SELFPAY ==
[2020-04-23 07:14] VITALS: BMI 34.5
[2020-05-09 13:43] VITALS: BMI 34.7
--- NOTE | 2020-05-15 14:59 | PFTCOMP ---
COMPLETE PULMONARY FUNCTION TEST INTERPRETATION Brief HPI: Patient is an 80 year old male, currently under the care of Cristina Morrow, who presents to [facility] for complete pulmonary function tests secondary to diagnosis of dyspnea. Respiratory therapist reports good effort and reproducible results. Interpretation: Forced expiration spirometry shows no large airways obstructive ventilatory defect with an FEV1 of 88% predicted. There is no significant bronchodilator response by strict ATS criteria. Spirograms are of good quality and plateau normally. The respiratory flow volume loop shows a normal pattern. Lung volumes by body plethysmography show a normal total lung capacity at 5.86 L, 93% predicted. All other lung volumes are within normal limits. Diffusion capacity by carbon monoxide is at the lower limit of normal at 65% predicted. The airway resistance is normal. Compared to previous pulmonary function tests from 02/09/2019, there is been a significant reduction in FVC and FEV1 by 21% and 14% respectively. Impression: Isolated reduction in diffusion capacity with some decrease in spirometric values compared to previous testing
== END ==
PROVIDERS: PCP Family Medicine
DX: I35.0 Nonrheumatic aortic (valve) stenosis (principal); I25.10 Atherosclerotic heart disease of native coronary artery without angina pectoris; R06.02 Shortness of breath
CPT/HCPCS: 94060; 94726; 94729

== ENCOUNTER → 2020-05-28 14:09 | Outpatient (CLI) | payer MEDICARE, OTHER, SELFPAY ==
[2020-05-09 13:43] VITALS: BMI 34.7
== END ==
PROVIDERS: PCP Family Medicine
DX: I48.91 Unspecified atrial fibrillation (principal)
CPT/HCPCS: 87635; C9803; U0002

== ENCOUNTER → 2020-06-24 | Outpatient (CLI) | payer MEDICARE, OTHER, SELFPAY ==
[2020-05-09 13:43] VITALS: BMI 34.7
== END | disposition home or self-care (01) ==
LOC: LABSPEC 14:51
PROVIDERS: PCP Family Medicine
DX: Z11.52 Encounter for screening for COVID-19 (principal)
CPT/HCPCS: 87635; C9803; U0002

== ENCOUNTER → 2020-08-19 14:05 | Outpatient (CLI) | payer MEDICARE, OTHER, SELFPAY ==
[2020-05-09 13:43] VITALS: BMI 34.7
--- NOTE | 2020-08-19 12:54 | PCM.CR.ITP ---
Diagnosis - General Information Admitting Diagnosis: TAVR at [facility] [place] Secondary Diagnosis: UNderlying CAD, atrial fibrillation, aortic valve stenosis, thoracic aortic aneurysm, hyperlipidemia, and hypertension. Personal Learning Style:: Audio/Visual, Written Barriers to Learning: Hearing Impairment, Vision Impairment Stage of change r/t lifestyle modifications:: Action Gave educational material for:: Treating Heart Disease, Emotions & Heart Disease, Stress Management & Relaxation, Sleep Disorders & Heart Disease, How The Heart Works, What it means to have Heart Disease, How Coronary Artery Disease is Diagnosed, Heart Procedures, What Heart Medications Do, Risk Factors & Modifications, Living an Active Life, Nutrition - Education/Goals Individual Counseling: Initial Assessment: Abnormal Cholesterol Levels, High Blood Pressure, Overweight/Obesity Cardiac Rehabilitation Goals: 1. Maintain the individual as the primary focus of care. 2. To improve the patient's quality of life. 3. Identification of cardiac risk factors and provide cardiac risk factor management. 4. Enhance the psychosocial status of the patient. 5. Reconditioning enough to allow the patient to resume customary activities. 6. Control symptoms of cardiac disease Personal Goals: Initial Assessment: Improve management of stress and emotions, Improve energy level, Participate in home exercise program, Get back to work, or to resume activities faster, Improve knowledge of cardiac disease, Improve muscle strength and endurance, Improve diet and eating habits (eat healthier), Control risk factors (learn risk factor modification) Scale for measuring improvement of personal goals: Enter appropriate number in Comments. 2 = Unchanged. 3 = Slightly Better. 4 = Moderate Improvement. 5 = Met my Goal - Diagnosis & Disease Process Outcomes/Goals: Pt IDs own risk factors & lifestyle modifications by Session 10, Verbalizes symptoms of angina & response by session 3., Pt independently manages Plan/Interventions: Assist Pt to ID & engage in lifestyle modification to reduce CVD risk, Instruct on individual risk factors, Review symptoms of angina & emergency actions, Review secondary diagnosis & identify educational needs. - Safety Referral to Physical Therapy: No Referral to [facility] Case Management: No Fall Risk Assessed:: Yes Assistive Devices:: Cane Exercise - Initial Assessment - Visit Date of Eval: 08/19/20 Session #:: 0 - Pre-cardiac Rehab evaluation Mets: Pre-: >5 METS for 30 minutes by discharge - Physician Prescribed Exercise Modalities: NuStep, SciFit Frequency: 3x/week for 12 weeks [36 sessions] Intensity: 60-80% of age predicted maximum heart rate reserve Current METSs:: 2.5 Target Heart Rate:: 90-114 Resting Blood Pressure: 135/62 EKG Type: Sinus rhtyhm with possible left anterior fascicular block EKG - Outcomes & Goals Goals:: Verbalizes understanding of THR, RPE & goal METS by session 6, Documents in home exercise log/reports 30 min aerobic 5 day/wk by DC, Demonstrates accurate pulse taking by DC - Intervention & Plan Exercise Program Goals: Instruct on personal THR & RPE, Instruct on MET level & personal MET goal, Show patient to take own pulse /validate performance until accurate, Instruct on home exercise - Physical Activity Home Exercise Physical Activity - Home Exercise: Safe Exercise, Warm-up, Self-monitoring, Cool-Down, Home Exercise > 30 min Daily, Sitting Time <3 hours/daily - Outcomes & Goals Outcomes/Goals: Demonstrates correct Warm-up/exercise Cool-Down (S3) if = 2.5 METs, Verbalizes symptoms of exercise intolerance by Session 3 (S3), Demonstrate safe equipment use (S3) & follows exercise prescrition (6) - Intervention & Plan Plan/Intervention: Instruct warm-up & cool-down if exercising at > 2 METs, Instruct on symptoms of exercise intolerance & actions to take, Instruct & monitor on saf, Assess intial functional capacity & safety risk Nutrition - Initial Assessment - Program Goals Nutrition Program Goals: LDL <100 optimal. 100 - 129 Near optimal. 130 - 159 Borderline High. 160 - 189 High. Total Cholesterol <200 desirable. 200 - 239 Borderline High. >/= 240 High. HDL < 40 Low >/=60 High. Triglycerides <150 desirable. <199 optimal. VlDL 5 - 40. HgbA1C <7%. BMI <25 Patient has diagnosis of Hyperlipidemia (ICD E78)?: Yes - Visit Date of Assessment:: 08/19/20 Session #:: 0 - Pre-cardiac rehab evaluation - Cholesterol/Lipids Triglycerides (mg/dL): 131 - 03/21/2020 Total Cholesterol (mg/dL): 179 LDL Cholesterol (mg/dL): 82 HDL Cholesterol (mg/dL): 71 - 0 Determine presence & major risk factors that modify LDL goal: Hypertension or hypertensive medication, Family history of premature CHD in Male < 55 years: female <65 yearsFa, Age men > 45 years; women >/= 55 years Outcomes/Goals: Pt IDs own risk factors & lifestyle modifications by Session 10, Verbalizes symptoms of angina & response by session 3., Pt independently manages Intervention/Plan: Instruct on personal lipid levels & lipid goals/NCEP guidelines, Instruct on cholesterol Referral to dietitian:: Yes - Diabetes (Other Core Measures) Diabetes Type: Not Applicable - Weight Mgt (Other Care) Height: 5 ft 10 in Weight:: 241 lb 12.8 oz BMI: 34.7 Diagnosis Overweight/Obesity BMI> 30% ICD-10 E66: Yes Diagnosis High BMI/Morbid Obesity BMI> 35% ICD-10 Z68: Yes Intervention/Plan: Instruct on ideal BMI & set weight loss goal w/patient, Assist pt to ID & incorporate diet changes for weight loss by S9, Refer to Structured Weight Loss program as appropriate, Encourage goal of using 250-300dcal per session for weight loss - Healthy Eating Habits Will attend diet classes:: Yes Outcomes/Goals:: Consume diet rich in vegs,fruits,whole grain/high fiber,fish,lean meat, Limit sat/trans fats,cholesterol & added salts & sugars Intervention/Plan:: Assess current eating habits Nutrition - 30-Day Assessment Nutrition - 60-Day Assessment Nutrition - 90-Day Assessment Nutrition - Final Assessment Medical - Initial Assessment - Visit Date of Eval: 08/19/20 Session #:: 0 - Pre-cardiac rehab evaluation - Medication Compliance Preventative Medication(s):: Aspirin, Clopidogrel/P2Y12 inhibit, Beta eitan H/O mental health issues: depression, anxiety, or addiction?: No Doesn?t believe in the benefits of treatment?: No Believes medications are unnecessary or harmful?: No Has a concern about medication side effects?: No Expresses concern over the cost of medications?: No Outcomes/Goals: Verbalizes medications,desired effect & common side effects @ DC, Pt self-reports following medication regimen, Keeps card in wallet w/medications listed by DC Interventions/plans: Instruct on medication effects & side effects, Review medication list w/patient every two weeks, Instruct importance of taking meds as ordered & assist problem solving - Tobacco Use Tobacco Use: Non-smoker - Hypertension Resting Blood Pressure:: 135/62 [place] [employer] Hypertension Guidelines: [place] [employer] Hypertension Guidelines. Normal BP Less than 120/80. Elevated BP 120/80. Hypertension Stage 1: BP 130-139/80-89. Hypertesnion Stage 2: BP 140 or higher/90 or higher. Hypertension Crisis: BP higher than 180/120 Outcomes/Goals: Able to verbalize/achieve optimal blood pressure <130/80, Incorporates diet changes & exercise for blood pressure control by DC Interventions/plan: Instruct on optimal blood pressure, hypertension & medications, Instruct on effects of sodium, alcohol, stress, exercise &hypertension - Tobacco Cessation Referral Smoking Cessation Referral:: No Individual Education/Counseling:: No Education Schedule Given:: Yes Medical- 30-Day Assessment Medical- 60-Day Assessment Medical- 90-Day Assessment Medical - Final Assessment Psychosocial - Initial Assess - VIsit Date of Eval: 08/19/20 Session #:: 0 - PRe-cardiac rehab evaluation Not Applicable: No History of previous Mental disease:: No - Psychosocial Test Tool Used:: [employer] [place] QOL Cardiac, PHQ-9 Questionnaire phq-9 Severity: Severity. 1-4 Minimal Depression. 5-9 Mild Depression. 10-14 Moderate Depression. 15-19 Moderately Sever Depression. 20-27 Severe Depression. Rule: - Referral to Behavioral Health PS - Interventions: Yes Attend Stress Management Classes, No Referral to Behavioral Health if PHQ-9 score >9:, No Referral to [facility], No Referral to Physician if PHQ-9 if score is 5-9: - Outcomes/Goals: See list Psychosocial Outcomes/Goals:: ID's personal stressors & 2 strategies to manage stress by discharge - Intervention/Plan: See List Interventions/Plan:: Assess stressors,coping strategies & signs of derpression on admission, Instruct/assist pt to develop coping & personal stress Mgt strategies, Instruct patient to recognize signs & symptoms of depression, Instruct patient to recog Psychosocial - 30-Day Assess Psychosocial - 60-Day Assess Psychosocial - 90-Day Assess Psychosocial - Final Assessmen Patient Health Questionnaire Initial Assessment 1. Little interest or pleasure in doing things: Several days 2. Feeling down, depressed, or hopeless: Several days 3. Trouble falling or staying asleep, or sleeping too much: Not at all 4. Feeling tired or having little energy: Several days 5. Poor appetite or overeating: Not at all 6. Feeling bad about yourself -- or that you are a failure or have let yourself or your family down: Several days 7. Trouble concentrating on things, such as reading the newspaper or watching television: Not at all 8. Moving or speaking so slowly that other people could have noticed. Or the opposite - being so fidgety or restless that you have been moving around a lot more than usual: Not at all 9. Thoughts that you would be better off , or of hurting yourself in some way: Not at all How difficult have these problems made it for you to do your work, take care of things at home, or get along with other people?: Not difficult at all Total Score: 4 CHANTALE-Q SV Test - Statements CAD is a disease of the arteries in the heart: False Examples of risk factors for heart disease: True Angina is chest pain or discomfort: True The benefits of resistance training include: True Eating more meat and dairy products: False Anti-platelet medications such as aspirin are important: I Don't Know The only effective way to manage stress: False An exercise warm-up slowly increases heart rate: True Prepared, processed foods usually have high sodium: True Depression is common after a heart attack: True The statin medications lower cholesterol: True To control blood pressure, lower the amount of sodium: True If someone gets chest discomfort during walking: False Transfats are partially hydrogenated vegetable oils: I Don't Know Sleep apnea that is not treated increases the risk: False To control cholesterol, one should become a vegetarian: False Someone knows if he/she is exercising at the right level: True Diabetes cannot be prevented with exercise & health eating: False Stress is a large risk for heart attack: True A diet that can help lower blood pressure is rich in: True - Total Score Total Correct Responses: 18 Self-Efficacy Initial Assessment We would like to know how confident you are in doing certain activities. Please select your confidence level for:: Select your confidence level for the following using the scale 1-10 where 1 is not at all confident and 10 is totally confident. Your score is the average of all 6 responses. Fatigue: How confident are you that you can keep the fatigue caused by your disease from interfering with the things you want to do? Select Number: 9 Physical Discomfort or Pain: How confident are you that you can keep the physical discomfort or pain of your disease from interfering with the things you want to do? Select Number: 9 Emotional Distress: How confident are you that you can keep the emotional distress caused by your disease from interfering with the things you want to do? Select Number: 9 Other Symptoms or Health Problems: How confident are you that you can keep other symptoms or health problems from interfering with the things you want to do? Select Number: 9 Different Tasks and Activities: How confident are you that you can do the different tasks and activities needed to manage your health condition so as to reduce your need to see a doctor? Select Number: 10 Medication: How confident are you that you can do things other than just taking medication to reduce how much your illness affects your everyday life? Select Number: 10 Total Score:: 9 Nutrition Survey - Nutrition Survey Initial Have you lost >10 lbs over the past 2 months without trying?: No Are you following a special diet at home for diabetes, low fat, or low salt?: Yes Are you interested in meeting with a dietitian for help understanding your diet?: No Do you eat less than 3 meals a day?: Yes Do you eat fatty meats (sloan, sausage, ribs, etc), fried foods, desserts, large amounts of salad dressings, margarine, butter, or cheese most days?: No Do you have food allergies? [Enter types in comment field]: No Do you eat in restaurants more than 3 times a week?: No Do you season food with salt, seasoning salt, or garlic salt?: No Do you used canned, boxed, frozen meals, or soups, seasoning packets?: No Total Score:: 2
--- NOTE | 2020-08-19 12:54 | PCM.CR.HP2 ---
CR - History & Physical - General Arrival date:: 08/19/20 Arrival time:: 12:45 Date of Referral:: 07/25/20 Date of CR Evaluation:: 08/19/20 Referring Physician: Dr. Harsh Reddy Primary Diagnosis: TAVR @ [place], [place] - History of Present Cardiac Event Onset Date: Enter Onset Date of cardiac illnesses in Comment field below Heart valve replacement or repair:: Yes - TAVR on 06/28/2020 Type of Symptoms:: shortness of breath, recurring fatigue, had echocardiogram done annually since developed his heart murmur and the most recent echo Dr. Reddy said it was time. - Sleep Disorder Evaluation Hx of Sleep Apnea: Yes Do you snore loudly (louder than talking or can be heard through closed doors)?: Yes Do you often feel tired/ fatigued/ sleepy during daytime?: Yes Has anyone observed you stop breathing during sleep?: Yes History of Hypertension (for STOP score): Yes - Previous SORIN history has home CPAP unit at . STOP Results: Positive - Medications Home Medications: Ambulatory Orders Medication Instructions Recorded acetaminophen 1,000 mg PO Q6H PRN PRN tab 12/30/18 amiodarone 100 mg tablet 100 mg PO DAILY #90 tab 07/11/19 furosemide 40 mg tablet 20 mg PO DAILY PRN tab 08/30/19 hydrocodone-acetaminophen 1 - 2 ea PO Q6H PRN PRN 09/08/19 levothyroxine 50 mcg tablet 50 mcg PO DAILY #90 tab 09/22/19 atorvastatin 10 mg tablet 10 mg PO QHS #90 tab 12/29/19 aspirin 81 mg tablet,delayed 81 mg PO DAILY 04/09/20 release pomalidomide 2 mg capsule 2 mg PO DAILY 07/01/20 clopidogrel 75 mg tablet 75 mg PO DAILY 07/24/20 dexamethasone 4 mg tablet mg PO 08/16/20 - Allergies Allergies/Adverse Reactions: Allergies adhesive tape Adverse Reaction (Verified 05/09/20 13:44) Other levofloxacin [From Levaquin] Adverse Reaction (Verified 05/09/20 13:44) PT UNSURE OF REACTION unable to sleep Advanced Directives - Advanced Directives Power of Client Support Manager: Yes Living Will: Yes Advance Directives Information Provided: No Advance Directives on File: Yes - Patient believes they are oon file but not 100% positive of that DNR Order?:: No - MOLST See MOLST form: No Past Medical History - Covid-19 Screening Fever: No Unexplained muscle aches: No Current respiratory symptoms: No Upper respiratory infections symptoms: No Gastro-intestinal symptoms: No Ogs-Bgap-Jjinuy symptoms: No Has tested positive for COVID-19 in last 30 days: No Date of testin05/16/20 - had two step vaccination for COVID-19 completed. Had contact w/person w/symptoms or Covid-19 (+) last 14 days: No Has High Risk Exposures ID'd by Health dept/Inf Control team: No 65 years or older:: Yes Lives in Assisted Living facility:: No Has a chronic lung disease or moderate to severe asthma:: No Has a serious heart condition:: Yes Immunocompromised:: No Severely obese (Body Mass Index of 40 or higher):: Yes Diabetic:: No Has chronic kidney disease undergoing dialysis:: No - Past Medical Illness Medical History: Past Medical History (Last Reviewed 08/16/20 @ 10:07 by Zelda Gutiérrez) Atherosclerotic heart disease of [place] coronary artery without angina pectoris I25.10 Mild per cath 1203 Bacteremia R78.81 BPH (benign prostatic hyperplasia) N40.0 BPH w/o urinary obs/LUTS N40.0 Chronic atrial fibrillation I48.20 Debility R53.81 Deep vein thrombosis (DVT) of right lower extremity I82.401 Dehydration E86.0 Edema R60.9 Essential hypertension I10 Gram-negative bacteremia R78.81 History of transcatheter aortic valve replacement (TAVR) Onset Date: ~06/28/20 Z95.2 Bhagat Matthieu #26 valve 06/28/20 Hypotension I95.9 Hypothyroidism E03.9 Knee pain M25.569 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.35 Multiple myeloma C90.00 Non-rheumatic aortic stenosis I35.0 SORIN on CPAP G47.33, Z99.89 Presence of Watchman left atrial appendage closure device Onset Date: ~06/07/20 Z95.818 @ [facility] 06/07/20 Prostatitis N41.9 Pure hypercholesterolemia E78.00 Thoracic aortic aneurysm without rupture I71.2 Urinary retention R33.9 UTI (urinary tract infection) N39.0 UTI due to extended-spectrum beta lactamase (ESBL) producing Escherichia coli N39.0, B96.29, Z16.12 Weakness R53.1 - Past Surgical History Surgical History: Past Surgical History (Last Reviewed 08/16/20 @ 10:07 by Zelda Gutiérrez) History of left heart catheterization (LHC) Onset Date: ~04/24/20 Z98.890 LEFT MAIN: Moderate calcification, Mild luminal irregularities; LEFT ANTERIOR DESCENDING ARTERY: PROX LAD: Moderate calcification, Mild luminal irregularities, MID LAD: Mild luminal irregularities; CIRCUMFLEX ARTERY: PROX CIRC: Moderate calcification, Mild luminal irregularities, MID CIRC: Mild luminal irregularities; OM 1: Proximal - Mild luminal irregularities; RIGHT CORONARY ARTERY: PROX RCA: Moderate calcification, MID RCA: 90 % Stenosis; VALVE FINDINGS: Aortic Valve Calcification - moderate; Mitral Valve Annular Calcification Severe; AORTIC ROOT: Angiographically normal per cardiac cath 04/24/20 History of total right knee replacement (TKR) Z96.651 Surgical History: total knee arthroplasty - Family History Summary Family History: Family History (Last Reviewed 08/16/20 @ 10:07 by Zelda Gutiérrez) Father Heart disease Mother Heart disease CVA (cerebral vascular accident) Brother CAD (coronary artery disease) Social History - Smoking History Smoking Status: Former smoker Hx Tobacco Use: No Hx Smoking Exposure: No - Alcohol Use Alcohol Usage: Yes - Occupation Occupation (List type of work in comments):: Retired - Hobbies, Recreation, Social Activities Hobbies: Woodworking, Reading, Other - gardening Recreational Activities: I am able to engage in most, but not all activities Social Environment - Status Marital Status: - Current Living Arrangements Living Environment:: Spouse - Children How many children do you have?: 0 - Safety Do you feel safe in your surroundings?: Yes - Assistance Do you need any assistance at home?: none Review of Systems - Review of Systems Hints: Right click = Denies ([place]ash). Left click = Reports ([place]) Review of Present Symptoms: Reports: Shortness of Breath with Exertion - a slight bit, Fatigue, Heart Arrhythmia/Irregularities - Chronic atrial fibrillation, Appetite - Normal, Appetite - Special Diet - dont eat as much, watch what I eat.. Denies: Operative Discomfort, Dizziness/Lightheadedness - Pain Is Patient Pain Free?: Yes Pain Location: back, lower extremity - left knee is bone on bone adn needs to be replaced, being measured tomorrow 08/20/2020 for heavier knee brace. Pain Level: 10 Risk Factor Assessment - Vital Signs Temperature: 97.5 F Respiratory Rate: 18 Pulse Ox: 95 Blood Pressure: 128/88 - Pulse Pulse Rate: 88 Pulse Rhythm: Regular - Hypertension Blood Pressure Sitting - Left Arm: 128/88 - Blood Cholesterol/Lipids Total Cholesterol (mg/dL) Goal = less than 200 mg/dL: 179 - 03/21/2020 HDL Cholesterol (mg/dL) Goal = less than 40 mg/dL: 71 LDL Cholesterol (mg/dL) Goal = less than 70 mg/dL: 82 Triglycerides (mg/dL) Goal = less than 150 mg/dL: 131 - Obesity Height: 5 ft 10 in Weight:: 241 lb 12.8 oz Weight in Pounds: 241.8 lbs Weight Source: Standing Scale Body Mass Index (BMI): 34.7 Nutritional Referral for Obesity: Yes - Physical Inactivity Physical Inactivity: None - Risk Stratification Risk Guidelines: Lowest Risk: Risk Factor for Smoking, Risk Factor for Diabetes, Risk Factor for Depression, Moderate Risk: Risk Factor for Dyslipidemia, Risk Factor for Hypertension, Highest Risk: Risk Factor for Obesity, Risk Factor for Sedentary Lifestyle - Family History Family History: Family History (Last Reviewed 08/16/20 @ 10:07 by Zelda Gutiérrez) Father Heart disease Mother Heart disease CVA (cerebral vascular accident) Brother CAD (coronary artery disease) Motivation - Motivation to Participate On a scale of 1 to 10, how prepared are you to commit to attending program?: 9 What do you see as barriers to successfully being able to complete the program?: left knee beig bone on bone and lower back problems. What do you see as the benefits of succesfully completing the program? In other words, what do you hope to get out of participating in the program?: healthier and stronger Are there issues you are dealing with that will interfere with completing the program?: left knee needs replaced, is bone on bone prevented by COVID and TAVR Do you have a spouse or signficant other, family or friends who will help support you to complete the program?: yes
[2020-08-19 13:17] VITALS: BP 135/62; BMI 34.7
[2020-08-19 13:29] VITALS: BP 128/88; PULSE 88; RESP 18; TEMP 36.4; O2SAT 95; BMI 34.7
== END ==
PROVIDERS: PCP Family Medicine; Referring Provider Internal Medicine Cardiovascular Disease; Visit Provider Internal Medicine Cardiovascular Disease
DX: Z95.2 Presence of prosthetic heart valve (principal)

== ENCOUNTER 2020-08-28 13:00 | Outpatient (RCR) | payer MEDICARE, OTHER, SELFPAY ==
[2020-08-19 13:17] VITALS: BMI 34.7
[2020-08-19 13:29] VITALS: BMI 34.7
== END 2020-08-28 23:59 ==
LOC: CR 13:00
PROVIDERS: PCP Family Medicine; Referring Provider Internal Medicine Cardiovascular Disease; Visit Provider Internal Medicine Cardiovascular Disease
DX: I71.2 Thoracic aortic aneurysm, without rupture (principal); Z95.2 Presence of prosthetic heart valve; Z95.818 Presence of other cardiac implants and grafts; I25.10 Atherosclerotic heart disease of native coronary artery without angina pectoris; I10 Essential (primary) hypertension
CPT/HCPCS: 93798

== ENCOUNTER 2020-09-27 13:00 | Outpatient (RCR) | payer MEDICARE, OTHER, SELFPAY ==
[2020-08-19 13:17] VITALS: BMI 34.7
[2020-08-19 13:29] VITALS: BMI 34.7
--- NOTE | 2020-09-17 06:44 | PCM.CR.ITP ---
Diagnosis Exercise - 30-day Assessment - Visit Date of Eval: 09/17/20 Session #:: 8 - Physician Prescribed Exercise Modalities: Treadmill, NuStep, SciFit Frequency: 3x/week for 12 weeks [36 sessions] Intensity: 60-80% of age predicted maximum heart rate reserve Current METSs:: 3.0 unchanged at this time Target Heart Rate:: 90-114 Current RPE:: 12-13 Maximum Excercise HR:: 94 Resting Blood Pressure: 120/70 Maximum Exercise Blood Pressure: 124/68 EKG Type: Atrial Fibrillation - Outcomes & Goals Goals:: Verbalizes understanding of THR, RPE & goal METS by session 6, Documents in home exercise log/reports 30 min aerobic 5 day/wk by DC, Demonstrates accurate pulse taking by DC - Intervention & Plan Exercise Program Goals: Instruct on personal THR & RPE, Instruct on MET level & personal MET goal, Show patient to take own pulse /validate performance until accurate, Instruct on home exercise - Physical Activity Home Exercise Physical Activity - Home Exercise: Safe Exercise, Warm-up, Self-monitoring, Cool-Down, Home Exercise > 30 min Daily, Sitting Time <3 hours/daily - Outcomes & Goals Outcomes/Goals: Demonstrates correct Warm-up/exercise Cool-Down (S3) if = 2.5 METs, Verbalizes symptoms of exercise intolerance by Session 3 (S3), Demonstrate safe equipment use (S3) & follows exercise prescrition (6) - Intervention & Plan Plan/Intervention: Instruct warm-up & cool-down if exercising at > 2 METs, Instruct on symptoms of exercise intolerance & actions to take, Instruct & monitor on saf, Assess intial functional capacity & safety risk - 30-day Reassessments 30 day Reassessments:: Progressing Nutrition - Initial Assessment Nutrition - 30-Day Assessment - Program Goals Nutrition Program Goals: LDL <100 optimal. 100 - 129 Near optimal. 130 - 159 Borderline High. 160 - 189 High. Total Cholesterol <200 desirable. 200 - 239 Borderline High. >/= 240 High. HDL < 40 Low >/=60 High. Triglycerides <150 desirable. <199 optimal. VlDL 5 - 40. HgbA1C <7%. BMI <25 Patient has diagnosis of Hyperlipidemia (ICD E78)?: Yes - Visit Date of Assessment:: 09/17/20 Session #:: 8 - Cholesterol/Lipids Triglycerides (mg/dL): 131 - 03/21/2020 Total Cholesterol (mg/dL): 179 LDL Cholesterol (mg/dL): 82 HDL Cholesterol (mg/dL): 71 Determine presence & major risk factors that modify LDL goal: Hypertension or hypertensive medication, Family history of premature CHD in Male < 55 years: female <65 yearsFa, Age men > 45 years; women >/= 55 years Outcomes/Goals: Pt IDs own risk factors & lifestyle modifications by Session 10, Verbalizes symptoms of angina & response by session 3., Pt independently manages Intervention/Plan: Instruct on personal lipid levels & lipid goals/NCEP guidelines, Instruct on cholesterol Referral to dietitian:: Yes - Medical Nutrition Therapy 30-day Reassessments:: Progressing - Diabetes (Other Core Measures) Diabetes Type: Not Applicable - Weight Mgt (Other Care) Height: 5 ft 10 in Weight:: 242 lb 8 oz BMI: 34.7 Diagnosis Overweight/Obesity BMI> 30% ICD-10 E66: Yes Diagnosis High BMI/Morbid Obesity BMI> 35% ICD-10 Z68: No Outcomes/Goals: Pt sets, maintains & shows weight loss goal & trend during rehab Intervention/Plan: Instruct on ideal BMI & set weight loss goal w/patient, Assist pt to ID & incorporate diet changes for weight loss by S9, Refer to Structured Weight Loss program as appropriate, Encourage goal of using 250-300dcal per session for weight loss 30 day Reassessments:: Progressing - Healthy Eating Habits Will attend diet classes:: Yes Outcomes/Goals:: Consume diet rich in vegs,fruits,whole grain/high fiber,fish,lean meat, Limit sat/trans fats,cholesterol & added salts & sugars Intervention/Plan:: Assess current eating habits 30-day Reassessments:: Progressing Nutrition - 60-Day Assessment Nutrition - 90-Day Assessment Nutrition - Final Assessment Medical - Initial Assessment Medical- 30-Day Assessment - Visit Date of Eval: 09/17/20 - Session #:: 8 - Medication Compliance Preventative Medication(s):: Aspirin, SMILEY inhibitor, Clopidogrel/P2Y12 inhibit, Statin/lipid, Beta eitan H/O mental health issues: depression, anxiety, or addiction?: No Doesn?t believe in the benefits of treatment?: No Believes medications are unnecessary or harmful?: No Has a concern about medication side effects?: No Expresses concern over the cost of medications?: No Outcomes/Goals: Verbalizes medications,desired effect & common side effects @ DC, Pt self-reports following medication regimen, Keeps card in wallet w/medications listed by DC Interventions/plans: Instruct on medication effects & side effects, Review medication list w/patient every two weeks, Instruct importance of taking meds as ordered & assist problem solving 30-day Reassessments:: Progressing - Tobacco Use Tobacco Use: Non-smoker - Hypertension Hypertension Diagnosis:: Hypertension ICD-10 I10 Resting Blood Pressure:: 120/70 [place] [employer] Hypertension Guidelines: [place] [employer] Hypertension Guidelines. Normal BP Less than 120/80. Elevated BP 120/80. Hypertension Stage 1: BP 130-139/80-89. Hypertesnion Stage 2: BP 140 or higher/90 or higher. Hypertension Crisis: BP higher than 180/120 Peak Exercise Blood Pressure:: 124/68 Outcomes/Goals: Able to verbalize/achieve optimal blood pressure <130/80, Incorporates diet changes & exercise for blood pressure control by DC Interventions/plan: Instruct on optimal blood pressure, hypertension & medications, Instruct on effects of sodium, alcohol, stress, exercise &hypertension 30 day Reassessments:: Progressing - Tobacco Cessation Referral Smoking Cessation Referral:: No Individual Education/Counseling:: No Education Schedule Given:: Yes Medical- 60-Day Assessment Medical- 90-Day Assessment Medical - Final Assessment Psychosocial - Initial Assess Psychosocial - 30-Day Assess - VIsit Date of Eval: 09/17/20 Session #:: 8 Not Applicable: Yes History of previous Mental disease:: No - Psychosocial Test Tool Used:: PHQ-9 Questionnaire phq-9 Severity: Severity. 1-4 Minimal Depression. 5-9 Mild Depression. 10-14 Moderate Depression. 15-19 Moderately Sever Depression. 20-27 Severe Depression. Rule: - Referral to Behavioral Health PS - Interventions: Yes Attend Stress Management Classes, No Referral to Behavioral Health if PHQ-9 score >9:, No Referral to [facility], No Referral to Physician if PHQ-9 if score is 5-9: - Outcomes/Goals: See list Psychosocial Outcomes/Goals:: ID's personal stressors & 2 strategies to manage stress by discharge - Intervention/Plan: See List Interventions/Plan:: Assess stressors,coping strategies & signs of derpression on admission, Instruct/assist pt to develop coping & personal stress Mgt strategies, Instruct patient to recognize signs & symptoms of depression, Instruct patient to recog - 30-day Reassessments: 30 day Reassessments:: Progressing Psychosocial - 60-Day Assess Psychosocial - 90-Day Assess Psychosocial - Final Assessmen Patient Health Questionnaire 30-Day Re-eval Assessment 1. Little interest or pleasure in doing things: Not at all 2. Feeling down, depressed, or hopeless: Not at all 3. Trouble falling or staying asleep, or sleeping too much: Not at all 4. Feeling tired or having little energy: Several days 5. Poor appetite or overeating: Not at all 6. Feeling bad about yourself -- or that you are a failure or have let yourself or your family down: Several days 7. Trouble concentrating on things, such as reading the newspaper or watching television: Not at all 8. Moving or speaking so slowly that other people could have noticed. Or the opposite - being so fidgety or restless that you have been moving around a lot more than usual: Not at all How difficult have these problems made it for you to do your work, take care of things at home, or get along with other people?: Not difficult at all Total Score: 2 Self-Efficacy 30-Day Re-eval Assessment We would like to know how confident you are in doing certain activities. Please select your confidence level for:: Select your confidence level for the following using the scale 1-10 where 1 is not at all confident and 10 is totally confident. Your score is the average of all 6 responses. Fatigue: How confident are you that you can keep the fatigue caused by your disease from interfering with the things you want to do? Select Number: 9 Physical Discomfort or Pain: How confident are you that you can keep the physical discomfort or pain of your disease from interfering with the things you want to do? Select Number: 10 Emotional Distress: How confident are you that you can keep the emotional distress caused by your disease from interfering with the things you want to do? Select Number: 10 Other Symptoms or Health Problems: How confident are you that you can keep other symptoms or health problems from interfering with the things you want to do? Select Number: 10 Different Tasks and Activities: How confident are you that you can do the different tasks and activities needed to manage your health condition so as to reduce your need to see a doctor? Select Number: 10 Medication: How confident are you that you can do things other than just taking medication to reduce how much your illness affects your everyday life? Select Number: 10 Total Score:: 9 Nutrition Survey
[2020-09-17 06:54] VITALS: BP 120/70; BP 124/68; BMI 34.7
== END 2020-09-28 23:59 ==
LOC: CR 13:00
PROVIDERS: PCP Family Medicine; Referring Provider Internal Medicine Cardiovascular Disease; Visit Provider Internal Medicine Cardiovascular Disease
DX: Z95.2 Presence of prosthetic heart valve (principal); Z95.818 Presence of other cardiac implants and grafts; I71.2 Thoracic aortic aneurysm, without rupture; I25.10 Atherosclerotic heart disease of native coronary artery without angina pectoris; I10 Essential (primary) hypertension
CPT/HCPCS: 93798

== ENCOUNTER 2020-10-11 13:10 | Emergency (ER) | payer MEDICARE, OTHER, SELFPAY ==
[2020-09-09 08:53] VITALS: BMI 33.8
[2020-09-17 06:54] VITALS: BMI 34.7
[2020-10-11 13:11] VITALS: BP 140/63; PULSE 52; RESP 18; TEMP 37.3; O2SAT 100; BMI 33.7
[2020-10-11 14:15] VITALS: BP 139/67; PULSE 87; RESP 15; RESP 16; TEMP 36.8; O2SAT 95
[2020-10-11 14:59] LABS: Absolute Lymphocyte Count 0.97 X10^3/uL (0.83-4.51); Absolute Neutrophil Count 6.2 X10^3/uL (2.0-7.7); Basophil# 0.01 X10^3/uL; Basophil% 0.1 % (0-1); Eosinophil# 0.11 X10^3/uL; Eosinophils% 1.3 % (0-5); Hematocrit 34.1 % (40-54); Hemoglobin 10.6 g/dL (13.0-16.5); Lymphocyte # 0.97 X10^3/ul (0.83-4.51); Lymphocyte % 11.1 % (19-41); Mean Corp Hgb Conc 31.1 g/dL (32-36); Mean Corpuscular Volume 109.3 fL (80-94); Mean Platelet Vol. 11.5 fl (6.2-12.0); Monocyte% 14.9 % (0-10); NRBC Flagged by Analyzer 0 % (0-5); Neutrophil # 6.22 X10^3/uL (2.7-7.7); POSITIVE COUNT YES; Platelet Count 69 K/mm3 (150-450); RBC Distribution Width CV 15.8 % (11.6-14.6); RBC Distribution Width SD 63.5 fl (35.1-43.9); Red Blood Count 3.12 M/mm3 (4.6-6.2); White Blood Count 8.8 K/mm3 (4.4-11.0)
[2020-10-11 15:06] LABS: Differential Indicated SCAN CRITERIA MET
[2020-10-11 15:15] LABS: AST(SGOT) 21 U/L (15-37); Alanine Aminotransfer ALT/SGPT 25 U/L (16-61); Albumin, Serum 2.8 g/dL (3.2-5.0); Alkaline Phosphatase 56 U/L (45-117); Anion Gap 5 (5-15); BUN 25 mg/dL (7-18); BUN/Creat Ratio 32.6 RATIO (10-20); Calcium,Total 8.3 mg/dL (8.5-10.1); Chloride 113 mmol/L (98-107); Creatinine, Serum 0.77 mg/dL (0.70-1.30); EST Glomerular Filtration Rate 103 mL/min (>60); Est Glom Filt Rate - Afr Amer 125 mL/min (>60); Estimated Creatinine Clearance 58.81 ml/min; Globulin 2.9 g/dL (2.2-4.2); Glucose 123 mg/dL (74-106); Potassium 3.9 mmol/L (3.5-5.1); Protein, Total 5.7 g/dL (6.4-8.2); Sodium Level 142 mmol/L (136-145)
[2020-10-11 15:28] VITALS: BP 141/58; PULSE 69; RESP 16; TEMP 36.7; O2SAT 98
[2020-10-11 15:33] LABS: Acanthocytes 1+; Anisocytosis 1+; Platelet Estimate MOD DEC (ADEQ); Red Cell Morphology N CHROM NORMAL (NORM C&C)
[2020-10-11 16:10] VITALS: PULSE 82; RESP 16; O2SAT 98
[2020-10-11 16:11] LABS: Lactic Acid 1.6 mmol/L (0.4-1.9)
--- NOTE | 2020-10-11 16:26 | EX.ED.UPPERE ---
HPI History of Present Illness Chief Complaint: Upper Extremity Injury Informant: patient Onset/Context/Timing Onset: Weeks (1) Context: Gradual Onset Timing: Continuous Quality of Pain: Aching Location: Left forearm and arm Worsened by: Nothing Relieved by: Nothing Narrative Narrative: Patient presents with left arm pain and redness that has been getting worse over the past week. Patient states he fell 1 week ago and was seen here for skin tears at that time. Patient states that his pain is aching. Patient states nothing makes it better nothing makes it worse. Patient denies any paresthesias or weakness. Patient admits to a fever earlier this week of 101. Patient admits to some mild drainage from the skin tears. Patient denies any bleeding. [facility] Medical History Atherosclerotic heart disease of [place] coronary artery without angina pectoris BPH (benign prostatic hyperplasia) BPH w/o urinary obs/LUTS Chronic atrial fibrillation Contusion of buttock Contusion of left hip Debility Deep vein thrombosis (DVT) of right lower extremity Dehydration Essential hypertension Fall Gram-negative bacteremia Hypothyroidism Multiple myeloma Non-rheumatic aortic stenosis SORIN on CPAP Pure hypercholesterolemia Strain of left hip Thoracic aortic aneurysm without rupture UTI due to extended-spectrum beta lactamase (ESBL) producing Escherichia coli Home Medications acetaminophen 1,000 mg PO Q6H PRN PRN tab 12/30/18 [Rx Last Taken Unknown] amiodarone 100 mg tablet 100 mg PO DAILY #90 tab 07/11/19 [Rx Last Taken 04/20/20] furosemide 40 mg tablet 20 mg PO DAILY PRN tab 08/30/19 [History Last Taken Unknown] levothyroxine 50 mcg tablet 50 mcg PO DAILY #90 tab 09/22/19 [Rx Last Taken 04/20/20] atorvastatin 10 mg tablet 10 mg PO QHS #90 tab 12/29/19 [Rx Last Taken Unknown] aspirin 81 mg tablet,delayed release 81 mg PO DAILY 04/09/20 [History Last Taken 04/20/20] pomalidomide 2 mg capsule 2 mg PO QWEEK 07/01/20 [History Last Taken Unknown] clopidogrel 75 mg tablet 75 mg PO DAILY 07/24/20 [History Last Taken Unknown] dexamethasone 4 mg tablet 20 mg PO QWEEK 08/16/20 [History Last Taken Unknown] amoxicillin-pot clavulanate 875 mg PO Q12H #20 tablet 08/13/21 [Rx Last Taken Unknown] Allergy/AdvReac Type Severity Reaction Status Date / Time adhesive tape AdvReac Other Verified 10/11/20 13:11 levofloxacin [From Levaquin] AdvReac PT UNSURE Verified 10/11/20 13:11 OF REACTION Family History Father Heart disease Mother Heart disease CVA (cerebral vascular accident) Brother CAD (coronary artery disease) Surgical History History of left heart catheterization (LHC) (~04/24/20) History of total right knee replacement (TKR) 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) Social History Smoking Status: Former smoker alcohol intake: current substance use type: does not use caffeine: No ROS ROS ED Constitutional Constitutional ED: Denies chills or fever(s) Eyes Eyes: Denies blurry vision or change in vision ENT ENT ED: Denies rhinorrhea or sore throat Cardiovascular Cardiovascular: Denies chest pain or palpitations Respiratory/Chest Respiratory/Chest: Denies cough or dyspnea Gastrointestinal Gastrointestinal: Denies nausea or vomiting Genitourinary Genitourinary ED: Denies dysuria or hematuria Musculoskeletal Musculoskeletal: Denies back pain or neck pain Integumentary Denies abscess or rash Neurologic Neurologic: Denies headache(s) or weakness Allergic/Immunologic Allergic/Immunologic ED: Denies mouth swelling or urticaria EXAM Physical Exam Const Vital Signs: 10/11/20 13:11 10/11/20 14:15 10/11/20 15:28 Temperature 99.1 F 98.3 F 98.0 F Temperature Source Temporal Temporal Temporal Pulse Rate 52 L 87 69 Respiratory Rate 18 16 16 Blood Pressure 140/63 H 139/67 H 141/58 H Blood Pressure Mean 88 91 85 Pulse Ox 100 95 98 Oxygen Delivery Method Room Air Room Air Room Air 10/11/20 16:10 Temperature Temperature Source Pulse Rate 82 Respiratory Rate 16 Blood Pressure Blood Pressure Mean Pulse Ox 98 Oxygen Delivery Method Room Air Positive well nourished and well developed General Appearance ED: well developed HEENT Reports moist mucous membranes Neck full ROM Resp normal respiratory effort and clear to auscultation bilaterally Cardio regular rate and regular rhythm GI non-tender and non-distended Auscultation: normoactive bowel sounds Palpation: soft Extremity Extremity Narrative: There is erythema and warmth over the left forearm and distal upper arm. There is good range of motion of the left elbow and left wrist. There is no deformity. There are superficial skin tears in the antecubital area and medial aspect of the proximal forearm. There is some mild drainage from these areas. There is no evidence of any abscess. Sensation was intact to light touch in the radial, median, and ulnar areas. Radial pulses are equal bilaterally. Strength is 5/5 in the radial, median, and ulnar areas. Neuro oriented x3, CN's II-XII intact bilaterally, moves all extremities, no focal motor deficits and no sensory deficits noted Sensorium / Orientation: alert Psych mental status grossly normal MDM MDM MDM Narrative Medical decision making narrative: Patient was given a dose of Unasyn here. Wound culture and blood cultures were obtained. CBC was within normal limits. Comprehensive metabolic profile was essentially within normal limits. Lactate was normal. Patient is feeling better on reevaluation. Patient was given a prescription for Augmentin. Patient was instructed to follow-up with his primary care physician in 3 to 5 days. Patient was instructed return if worse in any way. Patient understood and was agreeable with the plan. All questions were answered. Lab Data Attestation: I reviewed the patient's lab results. Labs: Laboratory Results - last 24 hr 10/11/20 10/11/20 10/11/20 14:46 14:46 14:46 WBC 8.8 RBC 3.12 L Hgb 10.6 L Hct 34.1 L MCV 109.3 H MCH 34.0 H MCHC 31.1 L RDW Std Deviation 63.5 H RDW Coeff of Chery 15.8 H Plt Count 69 L MPV 11.5 Immature Gran % (Auto) 1.600 H Neut % (Auto) 71.0 H Lymph % (Auto) 11.1 L [place] % (Auto) 14.9 H Eos % (Auto) 1.3 Baso % (Auto) 0.1 Absolute Neuts (auto) 6.2 Absolute Lymphs (auto) 0.97 Nucleated RBC % 0 Platelet Estimate MOD DEC RBC Morphology N CHROM Anisocytosis 1+ Acanthocytes (Spur) 1+ Sodium 142 Potassium 3.9 Chloride 113 H Carbon Dioxide 24.0 Anion Gap 5 BUN 25 H Creatinine 0.77 Estim Creat Clear Calc 58.81 Est GFR (MDRD) Af Amer 125 Est GFR (MDRD) Non-Af 103 BUN/Creatinine Ratio 32.6 H Glucose 123 H Lactic Acid 1.6 Calcium 8.3 L Total Bilirubin 1.10 H AST 21 ALT 25 Alkaline Phosphatase 56 Total Protein 5.7 L Albumin 2.8 L Globulin 2.9 Albumin/Globulin Ratio 1.0 Discharge Plan Triage Chief Complaint: Upper Extremity Injury ED Provider: Luis F Day Dx/Rx/DC Orders Clinical Impression: Cellulitis of left upper extremity Instructions: ED Cellulitis Prescriptions: New amoxicillin-pot clavulanate [amoxicillin-pot clavulanate] 875 MG tablet 875 mg PO Q12H Qty: 20 RF: 0 No Action furosemide 40 mg tablet 20 mg PO DAILY PRN (Reason: Swelling) RF: 0 dexamethasone 4 mg tablet 20 mg PO QWEEK RF: 0 acetaminophen 500 MG tablet 1,000 mg PO Q6H PRN PRN (Reason: Pain Score 1-3/10) RF: 0 amiodarone 100 mg tablet 100 mg PO DAILY Qty: 90 RF: 3 levothyroxine 50 mcg tablet 50 mcg PO DAILY Qty: 90 RF: 3 atorvastatin 10 mg tablet 10 mg PO QHS Qty: 90 RF: 3 aspirin [Adult Low Dose Aspirin] 81 mg tablet,delayed release (DR/EC) 81 mg PO DAILY RF: 0 pomalidomide 2 mg capsule 2 mg PO QWEEK RF: 0 clopidogrel 75 mg tablet 75 mg PO DAILY RF: 0 Primary Care Provider: Tiburcio Leger Referrals: Tiburcio Leger MD [Primary Care Provider] - 3-5 Days Disposition Disposition: Home, Self Care Discharge Date/Time: 10/11/20 16:55
[2020-10-11 16:55] VITALS: BP 142/74; PULSE 89; RESP 17; O2SAT 97
--- NOTE | 2020-10-12 02:03 | ED.RN ---
DR ABDALLA NOTFIED OF PRELIMINARY BLOOD CULTURE POSITIVE FOR GRAM NEGATIVE RODS. NO ORDERS AT THIS TIME. PT ON AUGMENTIN.
--- NOTE | 2020-10-12 07:56 | ED.RN ---
PER DR ABDALLA, PT CONTACTED TO COME BACK FOR MORE TESTING AND A DIFFERENT ATB
== END 2020-10-11 16:55 | disposition home or self-care (01) ==
PROVIDERS: Emergency Provider Emergency Medicine; PCP Family Medicine
DX: L03.114 Cellulitis of left upper limb (principal); R78.81 Bacteremia; I25.10 Atherosclerotic heart disease of native coronary artery without angina pectoris; I48.20 Chronic atrial fibrillation, unspecified; I10 Essential (primary) hypertension; E03.9 Hypothyroidism, unspecified; E78.00 Pure hypercholesterolemia, unspecified; C90.00 Multiple myeloma not having achieved remission; Z79.899 Other long term (current) drug therapy; Z87.891 Personal history of nicotine dependence
CPT/HCPCS: 80053; 83605; 85025; 87040; 87070; 87077; 87186; 87205; 99284; J7030; A4216; J0295

== ENCOUNTER 2020-10-12 10:32 | Inpatient (IN) | payer MEDICARE, OTHER, SELFPAY ==
[2020-09-17 06:54] VITALS: BMI 34.7
[2020-10-11 13:11] VITALS: BMI 33.7
[2020-10-12] VITALS (12 sets, daily range): BP systolic 101–133; BP diastolic 56–78; PULSE 62–83; RESP 14–18; TEMP 36.4–37.1; O2SAT 96–100; BMI 33.7; BMI 33.8
--- NOTE | 2020-10-12 11:26 | EDS_ITS ---
HPI History of Present Illness Chief Complaint: Abn Labs Informant: patient Narrative Narrative: Patient is an 80-year-old male who presents to the emergency department after being called back for positive blood cultures. Patient was seen in the emergency department yesterday and diagnosed with a left arm cellulitis. This was after a previous fall causing skin tears. Patient was given a dose of Unasyn and sent home with a prescription for Augmentin. The 2 o f his blood cultures did come back positive for gram-negative rods. Patient states that he has been having fevers, chills and body aches at home. The arm is very tender but feels like it has improved since yesterday. Patient has taken 2 doses of his antibiotic so far. [facility] Medical History Atherosclerotic heart disease of [place] coronary artery without angina pectoris BPH (benign prostatic hyperplasia) BPH w/o urinary obs/LUTS Chronic atrial fibrillation Contusion of buttock Contusion of left hip Debility Deep vein thrombosis (DVT) of right lower extremity Dehydration Essential hypertension Fall Gram-negative bacteremia Hypothyroidism Multiple myeloma Non-rheumatic aortic stenosis SORIN on CPAP Pure hypercholesterolemia Strain of left hip Thoracic aortic aneurysm without rupture UTI due to extended-spectrum beta lactamase (ESBL) producing Escherichia coli Home Medications acetaminophen 1,000 mg PO Q6H PRN PRN tab 12/30/18 [Rx Last Taken Unknown] amiodarone 100 mg tablet 100 mg PO DAILY #90 tab 07/11/19 [Rx Last Taken 04/20/20] furosemide 40 mg tablet 20 mg PO DAILY PRN tab 08/30/19 [History Last Taken Unknown] levothyroxine 50 mcg tablet 50 mcg PO DAILY #90 tab 09/22/19 [Rx Last Taken 04/20/20] atorvastatin 10 mg tablet 10 mg PO QHS #90 tab 12/29/19 [Rx Last Taken Unknown] aspirin 81 mg tablet,delayed release 81 mg PO DAILY 04/09/20 [History Last Taken 04/20/20] pomalidomide 2 mg capsule 2 mg PO QWEEK 07/01/20 [History Last Taken Unknown] clopidogrel 75 mg tablet 75 mg PO DAILY 07/24/20 [History Last Taken Unknown] dexamethasone 4 mg tablet 20 mg PO QWEEK 08/16/20 [History Last Taken Unknown] amoxicillin-pot clavulanate 875 mg PO Q12H #20 tablet 10/11/20 [Rx Last Taken Unknown] Allergy/AdvReac Type Severity Reaction Status Date / Time adhesive tape AdvReac Other Verified 10/12/20 10:33 levofloxacin [From Levaquin] AdvReac PT UNSURE Verified 10/12/20 10:33 OF REACTION Family History Father Heart disease Mother Heart disease CVA (cerebral vascular accident) Brother CAD (coronary artery disease) Surgical History History of left heart catheterization (LHC) (~04/24/20) History of total right knee replacement (TKR) 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) Social History Smoking Status: Former smoker alcohol intake: current substance use type: does not use caffeine: No ROS ROS ED Constitutional Constitutional ED: Reports chills and fever(s) Eyes Eyes: Denies change in vision ENT ENT ED: Denies epistaxis or rhinorrhea Cardiovascular Cardiovascular: Denies chest pain Respiratory/Chest Respiratory/Chest: Denies cough or dyspnea Gastrointestinal Gastrointestinal: Denies abdominal pain, diarrhea, nausea or vomiting Musculoskeletal Musculoskeletal: Denies back pain or neck pain Integumentary Reports Abrasions and rash Neurologic Neurologic: Denies dizziness, headache(s) or weakness EXAM Physical Exam Const Vital Signs: 10/12/20 10:33 10/12/20 11:36 10/12/20 11:45 Temperature 98.1 F 98.2 F Temperature Source Temporal Temporal Pulse Rate 62 68 Respiratory Rate 14 16 Respiratory Effort Normal Non-Labored Respiratory Pattern Normal Blood Pressure 109/65 103/69 Blood Pressure Mean 79 80 Pulse Ox 100 98 Oxygen Delivery Method Room Air Room Air 10/12/20 12:00 Temperature 98 F Temperature Source Temporal Pulse Rate 62 Respiratory Rate 14 Respiratory Effort Respiratory Pattern Blood Pressure 110/74 Blood Pressure Mean 86 Pulse Ox 97 Oxygen Delivery Method Room Air Positive well nourished and well developed General Appearance ED: well developed and NAD HEENT Reports normocephalic and head/scalp atraumatic Eyes PERRL and EOMs intact bilaterally Neck supple Resp normal respiratory effort and clear to auscultation bilaterally Auscultation: Negative for rales, rhonchi or wheezes Cardio regular rate, regular rhythm and no murmurs GI normal to inspection, nondistended, normoactive bowel sounds and non-tender Back/Spine no CVA tenderness Extremity Extremity Narrative: Left upper extremity has significant bruising going down the forearm. There is erythema, warmth and tenderness at the proximal arm senior care up the humerus. No lymphangitic streaking proximally to this he does have good range of motion. Neurovascularly intact. No obvious fluctuating abscess present. No crepitus. Neuro Sensorium / Orientation: alert Motor Exam: strength 5/5 throughout Psych mental status grossly normal MDM MDM MDM Narrative Medical decision making narrative: Patient presents the ED after being called back for positive blood cultures. He has gram-negative rods without the sensitivities growing in both of the blood cultures obtained. On arrival to the emergency department patient is in no acute distress. Vital signs within normal limits. Will start a dose of cefepime, recheck basic lab work and blood cultures. Will plan on admitting to the hospital until sensitivities return. Patient's lab work came back without significant acute abnormality. Does not have a high white blood cell count. His lactic acid is not elevated. Blood cultures are currently pending. I did discuss the case with the hospitalist who was willing to admit the patient. Patient is agreeable with this plan. He is remained stable throughout ED stay. Lab Data Labs: Laboratory Results - last 24 hr 10/12/20 10/12/20 10/12/20 11:40 11:40 11:40 WBC 6.9 RBC 2.94 L Hgb 10.1 L Hct 31.5 L MCV 107.1 H MCH 34.4 H MCHC 32.1 RDW Std Deviation 61.2 H RDW Coeff of Chery 15.6 H Plt Count 63 L MPV 11.2 Immature Gran % (Auto) 1.200 H Neut % (Auto) 67.3 Lymph % (Auto) 10.9 L [place] % (Auto) 16.7 H Eos % (Auto) 3.8 Baso % (Auto) 0.1 Absolute Neuts (auto) 4.6 Absolute Lymphs (auto) 0.75 L Nucleated RBC % 0 Sodium 143 Potassium 3.8 Chloride 114 H Carbon Dioxide 22.0 Anion Gap 7 BUN 21 H Creatinine 0.76 Estim Creat Clear Calc 58.81 Est GFR (MDRD) Af Amer 127 Est GFR (MDRD) Non-Af 105 BUN/Creatinine Ratio 27.7 H Glucose 122 H Lactic Acid 1.8 Calcium 7.9 L Discharge Plan Triage Chief Complaint: Abn Labs ED Provider: Seymour Jones Dx/Rx/DC Orders Clinical Impression: Bacteremia, Cellulitis of arm, left Primary Care Provider: Tiburcio Leger Disposition Disposition: Acute Care Hospital [facility]
[2020-10-12 11:56] LABS: Absolute Lymphocyte Count 0.75 X10^3/uL (0.83-4.51); Absolute Neutrophil Count 4.6 X10^3/uL (2.0-7.7); Basophil# 0.01 X10^3/uL; Basophil% 0.1 % (0-1); Eosinophil# 0.26 X10^3/uL; Eosinophils% 3.8 % (0-5); Hematocrit 31.5 % (40-54); Hemoglobin 10.1 g/dL (13.0-16.5); Lymphocyte # 0.75 X10^3/ul (0.83-4.51); Lymphocyte % 10.9 % (19-41); Mean Corp Hgb Conc 32.1 g/dL (32-36); Mean Corpuscular Hgb 34.4 pg (27.0-32.0); Mean Corpuscular Volume 107.1 fL (80-94); Mean Platelet Vol. 11.2 fl (6.2-12.0); Monocyte# 1.15 X10^3/uL; Monocyte% 16.7 % (0-10); NRBC Flagged by Analyzer 0 % (0-5); Neutrophil # 4.64 X10^3/uL (2.7-7.7); Neutrophil % 67.3 % (47-70); POSITIVE COUNT YES; Platelet Count 63 K/mm3 (150-450); RBC Distribution Width CV 15.6 % (11.6-14.6); RBC Distribution Width SD 61.2 fl (35.1-43.9); Red Blood Count 2.94 M/mm3 (4.6-6.2); White Blood Count 6.9 K/mm3 (4.4-11.0)
[2020-10-12 12:07] LABS: Anion Gap 7 (5-15); BUN 21 mg/dL (7-18); BUN/Creat Ratio 27.7 RATIO (10-20); Calcium,Total 7.9 mg/dL (8.5-10.1); Chloride 114 mmol/L (98-107); Creatinine, Serum 0.76 mg/dL (0.70-1.30); EST Glomerular Filtration Rate 105 mL/min (>60); Est Glom Filt Rate - Afr Amer 127 mL/min (>60); Estimated Creatinine Clearance 58.81 ml/min; Glucose 122 mg/dL (74-106); Potassium 3.8 mmol/L (3.5-5.1); Sodium Level 143 mmol/L (136-145)
[2020-10-12 12:22] LABS: Lactic Acid 1.8 mmol/L (0.4-1.9)
--- NOTE | 2020-10-12 16:49 | PCM.HP.STD ---
HPI - General General Date of Admission: 10/12/20 HPI Narrative ADDISON AGGARWAL, is a 80 M who presented to the emergency department at [facility] on 06/16/2020 after being called back for positive blood cultures. The patient presented the day prior for left upper extremity cellulitis. He reports that he had a mechanical fall while was in the shower and cut his arm open. He had been cleaning it up but noticed increasing erythema and pain in that arm over the last several days and therefore presented to the emergency department. Blood cultures were drawn and he was discharged home with oral Augmentin. His blood cultures today resulted positive for gram-negative yoselin so he was called back into the emergency department for reevaluation and admission. Mr. Aggarwal does have multiple myeloma at base time and therefore is immunosuppressed. Upon reevaluation today he does report that he is having some fevers and chills with body aches at home and that his arm is tender but it feels like he is overall improved in the last 24 hours. He has had 2 doses of an antibiotic so far. [facility] Medical History Atherosclerotic heart disease of [place] coronary artery without angina pectoris BPH (benign prostatic hyperplasia) BPH w/o urinary obs/LUTS Chronic atrial fibrillation Contusion of buttock Contusion of left hip Debility Deep vein thrombosis (DVT) of right lower extremity Dehydration Essential hypertension Fall Gram-negative bacteremia Hypothyroidism Multiple myeloma Non-rheumatic aortic stenosis SORIN on CPAP Pure hypercholesterolemia Strain of left hip Thoracic aortic aneurysm without rupture UTI due to extended-spectrum beta lactamase (ESBL) producing Escherichia coli Home Medications acetaminophen 1,000 mg PO Q6H PRN PRN tab 12/30/18 [Rx Last Taken Unknown] amiodarone 100 mg tablet 100 mg PO DAILY #90 tab 07/11/19 [Rx Last Taken 04/20/20] furosemide 40 mg tablet 20 mg PO DAILY PRN tab 08/30/19 [History Last Taken Unknown] levothyroxine 50 mcg tablet 50 mcg PO DAILY #90 tab 09/22/19 [Rx Last Taken 04/20/20] atorvastatin 10 mg tablet 10 mg PO QHS #90 tab 12/29/19 [Rx Last Taken Unknown] aspirin 81 mg tablet,delayed release 81 mg PO DAILY 04/09/20 [History Last Taken 04/20/20] pomalidomide 2 mg capsule 2 mg PO QWEEK 07/01/20 [History Last Taken Unknown] clopidogrel 75 mg tablet 75 mg PO DAILY 07/24/20 [History Last Taken Unknown] dexamethasone 4 mg tablet 20 mg PO QWEEK 08/16/20 [History Last Taken Unknown] amoxicillin-pot clavulanate 875 mg PO Q12H #20 tablet 10/11/20 [Rx Last Taken Unknown] Allergy/AdvReac Type Severity Reaction Status Date / Time adhesive tape AdvReac Other Verified 10/12/20 10:33 levofloxacin [From Levaquin] AdvReac PT UNSURE Verified 10/12/20 10:33 OF REACTION Family History Father Heart disease Mother Heart disease CVA (cerebral vascular accident) Brother CAD (coronary artery disease) Surgical History History of left heart catheterization (LHC) (~04/24/20) History of total right knee replacement (TKR) 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) Social History Smoking Status: Former smoker alcohol intake: current substance use type: does not use caffeine: No ROS Constitutional Constitutional: Reports fatigue, malaise and weakness Eyes Eyes: Denies blurry vision, change in eye color, change in vision, discharge from eye(s), double vision, erythema, eye pain, loss of vision or other ENT HEENT: Reports abnormal hearing; Denies dysphagia, ear pain, epistaxis, headache(s), hearing loss, nasal congestion, nasal discharge, post nasal drip, sinus pressure, sore throat or other Cardiovascular Cardiovascular: Reports edema; Denies chest pain, claudication, dyspnea on exertion, lightheadedness, orthopnea, palpitations, paroxysmal nocturnal dyspnea, rapid heart rate, syncope or other Respiratory/Chest Respiratory/Chest: Denies cough, dyspnea, excessive phlegm production, hemoptysis, productive cough, shortness of breath at rest, shortness of breath with exertion, wheezing or other Gastrointestinal Gastrointestinal: Denies abdominal pain, coffee ground emesis, constipation, diarrhea, dyspepsia, hematemesis, hematochezia, loose stools, melena, nausea, vomiting or other Genitourinary Genitourinary: Denies burning urination, difficulty urinating, dysuria, hematuria, nocturia, urinary frequency, urinary hesitancy, urinary incontinence, urinary urgency or other Musculoskeletal Musculoskeletal: Reports arthralgias, joint pain and joint stiffness; Denies back pain, joint swelling, myalgias, neck pain or other Neurologic Neurologic: Denies abnormal gait, abnormal speech, confusion, disequilibrium, dizziness, focal weakness, headache(s), numbness, paresthesias, seizure-like activity, seizures, syncope, tingling, tremor(s) or other Psychiatric Psychiatric: Denies anxiety, depression, homicidal ideation, suicidal ideation or other Endocrine Endocrinology: Denies change in body appearance, cold intolerance, excessive sweating, heat intolerance, polydipsia, polyuria or other Hematologic/Lymphatic Hematologic/Lymphatic: Denies anemia, easy bleeding, easy bruising, lymphadenopathy or other Allergic/Immunologic Allergic/Immunologic: Denies rhinitis, hives, eczemia, asthma or other Vital Signs Vital Signs Vital Signs: 10/12/20 10:33 10/12/20 11:36 10/12/20 11:45 Temperature 98.1 F 98.2 F Temperature Source Temporal Temporal Pulse Rate 62 68 Respiratory Rate 14 16 Respiratory Effort Normal Non-Labored Respiratory Depth Respiratory Pattern Normal Blood Pressure 109/65 103/69 Blood Pressure Mean 79 80 Blood Pressure Source Blood Pressure Position Blood Pressure Location Pulse Ox 100 98 Oxygen Delivery Method Room Air Room Air 10/12/20 12:00 10/12/20 12:52 10/12/20 13:00 Temperature 98 F 98.3 F 98 F Temperature Source Temporal Temporal Temporal Pulse Rate 62 64 69 Respiratory Rate 14 14 14 Respiratory Effort Respiratory Depth Respiratory Pattern Blood Pressure 110/74 101/63 104/78 Blood Pressure Mean 86 75 86 Blood Pressure Source Blood Pressure Position Blood Pressure Location Pulse Ox 97 96 97 Oxygen Delivery Method Room Air Room Air Room Air 10/12/20 14:00 10/12/20 15:00 10/12/20 16:15 Temperature 97.8 F 97.9 F Temperature Source Temporal Temporal Pulse Rate 62 65 Respiratory Rate 14 16 Respiratory Effort Respiratory Depth Respiratory Pattern Blood Pressure 114/71 118/64 Blood Pressure Mean 85 82 Blood Pressure Source Blood Pressure Position Blood Pressure Location Pulse Ox 96 96 98 Oxygen Delivery Method Room Air Room Air Room Air 10/12/20 16:21 10/12/20 16:31 Temperature 98.7 F Temperature Source Oral Pulse Rate 77 Respiratory Rate 18 Respiratory Effort Normal Non-Labored Respiratory Depth Normal Respiratory Pattern Normal Blood Pressure 133/69 H Blood Pressure Mean 90 Blood Pressure Source Monitor Blood Pressure Position Semi-Fowlers Blood Pressure Location Right Arm Pulse Ox 99 Oxygen Delivery Method Room Air Room Air Weight Weight: 107.1 kg Body Mass Index (BMI) 33.8 Physical Exam Const alert, oriented x3 and no apparent distress Constitutional Narrative: Obese elderly white male sitting up in bed, appears comfortable, nontoxic General Appearance: cooperative HEENT normocephalic, head/scalp atraumatic and moist oral mucous membranes HEENT Narrative: Mild [place], dentures in place Mouth: oral and palatal mucosa normal Eyes PERRL and EOMs intact bilaterally Eyes Narrative: Mildly pale conjunctiva Neck no lymphadenopathy, supple, no JVD and no carotid bruits Resp normal respiratory effort, no retractions, no use of accessory muscles and clear to auscultation bilaterally Auscultation: Negative for crackles, rales, rhonchi or wheezes Cardio regular rate, regular rhythm, S1 normal heart sound, S2 normal heart sound, no murmurs, no rub, no gallops, no clicks and no JVD GI normal to inspection, nondistended, normoactive bowel sounds, soft to palpation, non-tender and non-distended Extremity Extremity Narrative: Left upper extremity with ecchymosis from just below his armpit to his hand, edema present, mildly tender, no clubbing or cyanosis, bilateral lower extremity edema, 2+ pitting-patient reports this is chronic and has not been taking his Lasix because he does not like to urinate frequently Peripheral Pulses: Yes pulses 2+ throughout Skin skin turgor normal, no jaundice, no petechiae and no mottling Skin Narrative: Medial left brachial wound and the appearance of skin tears, no drainage Neuro oriented x3, CN's II-XII intact bilaterally, moves all extremities and no focal motor deficits Sensorium / Orientation: awake and alert Speech: speech normal Psych affect normal Psych Narrative: Very pleasant Results Lab / Micro Data Result Diagrams: 10/12/20 11:40 10/12/20 11:40 Labs: Laboratory Results - last 24 hr 10/12/20 11:40: WBC 6.9, RBC 2.94 L, Hgb 10.1 L, Hct 31.5 L, MCV 107.1 H, MCH 34.4 H, MCHC 32.1, RDW Std Deviation 61.2 H, RDW Coeff of Chery 15.6 H, Plt Count 63 L, MPV 11.2, Immature Gran % (Auto) 1.200 H, Neut % (Auto) 67.3, Lymph % (Auto) 10.9 L, [place] % (Auto) 16.7 H, Eos % (Auto) 3.8, Baso % (Auto) 0.1, Absolute Neuts (auto) 4.6, Absolute Lymphs (auto) 0.75 L, Nucleated RBC % 0 10/12/20 11:40: Sodium 143, Potassium 3.8, Chloride 114 H, Carbon Dioxide 22.0, Anion Gap 7, BUN 21 H, Creatinine 0.76, Estim Creat Clear Calc 58.81, Est GFR (MDRD) Af Amer 127, Est GFR (MDRD) Non-Af 105, BUN/Creatinine Ratio 27.7 H, Glucose 122 H, Calcium 7.9 L 10/12/20 11:40: Lactic Acid 1.8 Assessment & Plan Assessment/Plan (1) Gram-negative bacteremia: (2) Cellulitis of left upper extremity: (3) Anemia: (4) Thrombocytopenia: PLAN: Gram-negative bacteremia without sepsis -Source likely left upper extremity wound -Cefepime given in the emergency department will continue 2 g daily -Blood cultures positive from 813 but were repeated 814 in the ED will follow -ID consult for recommendations given patient's immunosuppressive status Left upper extremity cellulitis -Continue antibiotics as above -Wound care consultation -Wound dressing to skin tear area in the left medial brachium -Area was outlined with skin pen Multiple myeloma -Continue home baseline medication Anemia/thrombocytopenia-both of these are chronic -We will follow counts given bacteremia and antibiotic use PAF -Continue amiodarone -Patient remains in normal sinus rhythm -Patient is not anticoagulated--> I suspect this is related to his chronic thrombocytopenia -Patient does have watchman device placed for 2020 CAD/aortic stenosis/thoracic aortic aneurysm/hypertension/hyperlipidemia -Continue home medications -He is to remain on Plavix for at least 6 months which is 2020 and then can switch to aspirin 325 mg daily -Patient underwent TAVR earlier this year at [facility] -Continue CPAP BPH -Monitor -Patient is not on any medications at baseline for BPH Hypothyroidism -Continue thyroid replacement [place] -Consult PT/OT for therapy recommendations at discharge OA/chronic pain -Continue home medications DVT prophylaxis -Continue Lovenox Charges/Coding Visit Charges Inpatient E&M: 15397 Init Hosp L3
[2020-10-12] MEDS: Lactated Ringers 1,000 ML 75 ML IV (17:07)
[2020-10-12] MEDS: Atorvastatin Calcium 10 MG Tablet PO (21:35)
[2020-10-13] VITALS (8 sets, daily range): BP systolic 109–131; BP diastolic 61–78; PULSE 64–77; RESP 18; TEMP 36.1–36.3; O2SAT 95–100
[2020-10-13] MEDS: Levothyroxine 50 MCG Tablet PO (04:34)
[2020-10-13 06:40] LABS: Absolute Lymphocyte Count 0.87 X10^3/uL (0.83-4.51); Absolute Neutrophil Count 3.7 X10^3/uL (2.0-7.7); Basophil# 0.01 X10^3/uL; Basophil% 0.2 % (0-1); Eosinophil# 0.46 X10^3/uL; Eosinophils% 7.5 % (0-5); Hematocrit 33.6 % (40-54); Hemoglobin 10.6 g/dL (13.0-16.5); Lymphocyte # 0.87 X10^3/ul (0.83-4.51); Lymphocyte % 14.1 % (19-41); Mean Corp Hgb Conc 31.5 g/dL (32-36); Mean Corpuscular Hgb 34.4 pg (27.0-32.0); Mean Corpuscular Volume 109.1 fL (80-94); Mean Platelet Vol. 12.3 fl (6.2-12.0); Monocyte% 17.9 % (0-10); NRBC Flagged by Analyzer 0 % (0-5); Neutrophil # 3.66 X10^3/uL (2.7-7.7); Neutrophil % 59.3 % (47-70); POSITIVE COUNT YES; Platelet Count 61 K/mm3 (150-450); RBC Distribution Width CV 15.7 % (11.6-14.6); RBC Distribution Width SD 62.6 fl (35.1-43.9); Red Blood Count 3.08 M/mm3 (4.6-6.2); White Blood Count 6.2 K/mm3 (4.4-11.0)
[2020-10-13 07:20] LABS: ALB/GLOB Ratio 0.9 RATIO (0.9-2.4); AST(SGOT) 17 U/L (15-37); Alanine Aminotransfer ALT/SGPT 21 U/L (16-61); Albumin, Serum 2.4 g/dL (3.2-5.0); Alkaline Phosphatase 49 U/L (45-117); Anion Gap 7 (5-15); BUN 19 mg/dL (7-18); BUN/Creat Ratio 28.4 RATIO (10-20); Chloride 113 mmol/L (98-107); Creatinine, Serum 0.67 mg/dL (0.70-1.30); EST Glomerular Filtration Rate 121 mL/min (>60); Est Glom Filt Rate - Afr Amer 146 mL/min (>60); Estimated Creatinine Clearance 58.81 ml/min; Globulin 2.7 g/dL (2.2-4.2); Glucose 92 mg/dL (74-106); Magnesium 2.1 mg/dL (1.6-2.6); Phosphorus 3.4 mg/dL (2.5-4.9); Potassium 3.9 mmol/L (3.5-5.1); Protein, Total 5.1 g/dL (6.4-8.2); Sodium Level 141 mmol/L (136-145)
[2020-10-13] MEDS: Aspirin E.C. 81 MG Tablet PO (08:35)
[2020-10-13] MEDS: Clopidogrel Bisulfate 75 MG Tablet PO (09:35)
[2020-10-13] MEDS: Enoxaparin 40 MG/0.4 ML Syringe SC (09:35)
[2020-10-13] MEDS: Amiodarone 200 MG Tablet 100 MG PO (09:35)
--- NOTE | 2020-10-13 10:22 | PCM.PN.HOSP ---
Subjective Subjective Patient reports that his chills and malaise have improved. He states his arm still sore but seems to be a little bit better. Objective Data Objective Data Vital Signs: Vital Signs Temp Pulse Resp BP Pulse Ox 97.3 F L 77 18 130/71 H 99 10/13/20 09:30 10/13/20 09:30 10/13/20 09:30 10/13/20 09:30 10/13/20 09:30 Oxygen Delivery Method Room Air Weight: 107.1 kg Body Mass Index (BMI) 33.8 Intake & Output: Intake and Output for Last 24 Hours 10/11/20 10/12/20 10/13/20 23:59 23:59 23:59 Intake Total 450 / 450 1100.00 / 1100.00 Output Total 525 / 525 Balance 450 / 225 575.00 / 575.00 Lab / Micro Data Result Diagrams: 10/13/20 06:00 10/13/20 06:00 Labs: Laboratory Results - last 24 hr 10/12/20 11:40: WBC 6.9, RBC 2.94 L, Hgb 10.1 L, Hct 31.5 L, MCV 107.1 H, MCH 34.4 H, MCHC 32.1, RDW Std Deviation 61.2 H, RDW Coeff of Chery 15.6 H, Plt Count 63 L, MPV 11.2, Immature Gran % (Auto) 1.200 H, Neut % (Auto) 67.3, Lymph % (Auto) 10.9 L, [place] % (Auto) 16.7 H, Eos % (Auto) 3.8, Baso % (Auto) 0.1, Absolute Neuts (auto) 4.6, Absolute Lymphs (auto) 0.75 L, Nucleated RBC % 0 10/12/20 11:40: Sodium 143, Potassium 3.8, Chloride 114 H, Carbon Dioxide 22.0, Anion Gap 7, BUN 21 H, Creatinine 0.76, Estim Creat Clear Calc 58.81, Est GFR (MDRD) Af Amer 127, Est GFR (MDRD) Non-Af 105, BUN/Creatinine Ratio 27.7 H, Glucose 122 H, Calcium 7.9 L 10/12/20 11:40: Lactic Acid 1.8 10/13/20 06:00: WBC 6.2, RBC 3.08 L, Hgb 10.6 L, Hct 33.6 L, MCV 109.1 H, MCH 34.4 H, MCHC 31.5 L, RDW Std Deviation 62.6 H, RDW Coeff of Chery 15.7 H, Plt Count 61 L, MPV 12.3 H, Immature Gran % (Auto) 1.000 H, Neut % (Auto) 59.3, Lymph % (Auto) 14.1 L, [place] % (Auto) 17.9 H, Eos % (Auto) 7.5 H, Baso % (Auto) 0.2, Absolute Neuts (auto) 3.7, Absolute Lymphs (auto) 0.87, Nucleated RBC % 0 10/13/20 06:00: Sodium 141, Potassium 3.9, Chloride 113 H, Carbon Dioxide 21.0, Anion Gap 7, BUN 19 H, Creatinine 0.67 L, Estim Creat Clear Calc 58.81, Est GFR (MDRD) Af Amer 146, Est GFR (MDRD) Non-Af 121, BUN/Creatinine Ratio 28.4 H, Glucose 92, Calcium 8.0 L, Phosphorus 3.4, Magnesium 2.1, Total Bilirubin 1.20 H, AST 17, ALT 21, Alkaline Phosphatase 49, Total Protein 5.1 L, Albumin 2.4 L, Globulin 2.7, Albumin/Globulin Ratio 0.9 Physical Exam Const alert, oriented x3 and no apparent distress Constitutional Narrative: Elderly white male sitting up in bed, nursing at bedside, nontoxic-appearing, no distress, watching television Exam Limitations: no limitations HEENT head/scalp atraumatic Head and Scalp: normocephalic Resp normal respiratory effort, no retractions, no use of accessory muscles and clear to auscultation bilaterally Auscultation: Negative for crackles, rales, rhonchi or wheezes Cardio regular rate, regular rhythm, S1 normal heart sound, S2 normal heart sound, no murmurs, no rub, no gallops, no clicks and no JVD GI normal to inspection, nondistended, normoactive bowel sounds, soft to palpation, non-tender and non-distended Extremity Extremity Narrative: Left upper extremity with persistent erythema although some retraction from markings noted, wound medial left mid brachium, with no drainage or increased tenderness, arm remains edematous but this appears to be improving slowly, bilateral lower extremity pitting edema with skin changes consistent with chronic venous stasis. Peripheral Pulses: Yes pulses 2+ throughout Skin Skin Narrative: See above Neuro oriented x3, moves all extremities and no focal motor deficits Sensorium / Orientation: awake and alert Assessment & Plan Assessment/Plan (1) Gram-negative bacteremia: (2) Cellulitis of left upper extremity: (3) Anemia: (4) Thrombocytopenia: PLAN: Gram-negative bacteremia without sepsis -Source likely left upper extremity wound -Cefepime given in the emergency department will continue 2 g daily -Blood cultures positive from 10/11 but were repeated 10/12 in the ED will follow -Still documented is gram-negative yoselin but no identification or sensitivities -ID consult pending for recommendations given patient's immunosuppressed status Left upper extremity cellulitis -Continue antibiotics as above -Wound culture growing gram-negative yoselin lactose supplemental manager and a gram-positive organism -Continue cefepime at this time -Arm is clinically improving -Check MRSA PCR -Wound care consultation -Wound dressing to skin tear area in the left medial brachium -Area was outlined with skin pen Multiple myeloma -Continue home baseline medication Anemia/thrombocytopenia-both of these are chronic -We will follow counts given bacteremia and antibiotic use -Platelets and hemoglobin are stable PAF -Continue amiodarone -Patient remains in normal sinus rhythm -Patient is not anticoagulated--> I suspect this is related to his chronic thrombocytopenia -Patient does have watchman device placed for 2020 CAD/aortic stenosis/thoracic aortic aneurysm/hypertension/hyperlipidemia -Continue home medications -He is to remain on Plavix for at least 6 months which is 10 2020 and then can switch to aspirin 325 mg daily -Patient underwent TAVR earlier this year at [facility] -Continue CPAP BPH -Monitor -Patient is not on any medications at baseline for BPH Hypothyroidism -Continue thyroid replacement [place] -PT/OT evaluations are pending for therapy recommendations at discharge OA/chronic pain -Continue home medications DVT prophylaxis -Continue Lovenox Charges/Coding Visit Charges Inpatient E&M: 12828 Subs Hosp L2
[2020-10-13 14:14] LABS: M R Staph aureus DNA By PCR Negative (Negative); Probe Check PASS; Specimen Processing Control PASS
[2020-10-13] MEDS: Atorvastatin Calcium 10 MG Tablet PO (21:53)
[2020-10-14] VITALS (10 sets, daily range): BP systolic 110–139; BP diastolic 64–73; PULSE 65–76; RESP 18; TEMP 36.4–36.8; O2SAT 97–100
[2020-10-14] MEDS: Levothyroxine 50 MCG Tablet PO (05:58)
[2020-10-14 06:21] LABS: Absolute Lymphocyte Count 0.85 X10^3/uL (0.83-4.51); Absolute Neutrophil Count 2.6 X10^3/uL (2.0-7.7); Basophil# 0.01 X10^3/uL; Basophil% 0.2 % (0-1); Eosinophil# 0.47 X10^3/uL; Eosinophils% 9.9 % (0-5); Hematocrit 32.2 % (40-54); Hemoglobin 9.8 g/dL (13.0-16.5); Lymphocyte # 0.85 X10^3/ul (0.83-4.51); Lymphocyte % 17.8 % (19-41); Mean Corp Hgb Conc 30.4 g/dL (32-36); Mean Corpuscular Hgb 33.7 pg (27.0-32.0); Mean Corpuscular Volume 110.7 fL (80-94); Mean Platelet Vol. 12.1 fl (6.2-12.0); Monocyte# 0.79 X10^3/uL; Monocyte% 16.6 % (0-10); NRBC Flagged by Analyzer 0 % (0-5); Neutrophil # 2.62 X10^3/uL (2.7-7.7); Neutrophil % 54.9 % (47-70); POSITIVE COUNT YES; Platelet Count 66 K/mm3 (150-450); RBC Distribution Width CV 15.5 % (11.6-14.6); RBC Distribution Width SD 63.7 fl (35.1-43.9); Red Blood Count 2.91 M/mm3 (4.6-6.2); White Blood Count 4.8 K/mm3 (4.4-11.0)
[2020-10-14 06:33] LABS: Anion Gap 6 (5-15); BUN 23 mg/dL (7-18); BUN/Creat Ratio 38.1 RATIO (10-20); Calcium,Total 8.2 mg/dL (8.5-10.1); Chloride 114 mmol/L (98-107); EST Glomerular Filtration Rate 136 mL/min (>60); Est Glom Filt Rate - Afr Amer 164 mL/min (>60); Estimated Creatinine Clearance 58.81 ml/min; Glucose 92 mg/dL (74-106); Potassium 3.7 mmol/L (3.5-5.1); Sodium Level 142 mmol/L (136-145)
[2020-10-14 06:52] LABS: Differential Indicated SCAN CRITERIA MET
[2020-10-14] MEDS: Aspirin E.C. 81 MG Tablet PO (08:16)
[2020-10-14] MEDS: Amiodarone 200 MG Tablet 100 MG PO (08:19)
[2020-10-14] MEDS: Clopidogrel Bisulfate 75 MG Tablet PO (08:19)
[2020-10-14] MEDS: dexAMETHasone 4 MG Tablet 20 MG PO (08:22)
[2020-10-14] MEDS: Enoxaparin 40 MG/0.4 ML Syringe SC (09:18)
[2020-10-14] MEDS: 0.9% Saline Lock 10 ML Syringe IV (09:19)
--- NOTE | 2020-10-14 11:05 | CASEMGMT ---
LUDA BABCOCK Face to Face with patient for initial transition planning/care coordination assessment. RN CM introduced self and role at [facility]. Patient sitting in chair, alert and oriented. Patient willing to participate in assessment and is able to answer all questions appropriately. Care providers, pharmacy, and demographics verified. Patient wishes to discharge home, denies need for home health at this time. Patient states he has no further needs or concerns at this time. CM to follow for discharge planning needs that may arise. PCP: [place] Specialists: Harrison, oncologist; Maureen, x ray physician; Giovanni, urologist; Basali, pain Preferred Pharmacy: [facility] Insurance: [employer], [employer] Prescription Benefit: yes Living Will/HPOA: yes, Marie Valdez LNOK: Living Arrangements: Patient lives with in a single story home with 1 step to enter the home. Patient states he is independent at home. Transportation: self/ DME/HHC: Patient states he has shower chair, raised toilet, walker, and cpap at home. Patient denies previous HHC or SNF. Disposition Plan: Patient to discharge home with family support and follow-up plans in place. Shakila CIFUENTES, RN, CM
--- NOTE | 2020-10-14 11:51 | NURSING ---
wound photo: left arm
--- NOTE | 2020-10-14 15:30 | PCM.CONS.GEN ---
Assessment & Plan Assessment/Plan (1) Gram-negative bacteremia: PLAN: Has h/o esbl ecoli uti, but GNR seems likely from LUE cellulitis/wound. Cont cefepime, responding well. Will follow, thank you (2) Cellulitis of left upper extremity: HPI Consult Data Date of Consult: 10/14/20 HPI Narrative HPI Narrative: ADDISON AGGARWAL, is a 80 M who presented with one week of progressive LUE pain/redness/swelling after scraping it on shower door. Developed fever, chills, came to ED. Has gotten covid shots. No dysuria or abd pain, no n/v/d. Admitted on cefepime. Feeling much better. Full ROS performed and neg except as noted above. [facility] Medical History Atherosclerotic heart disease of [place] coronary artery without angina pectoris BPH (benign prostatic hyperplasia) BPH w/o urinary obs/LUTS Chronic atrial fibrillation Contusion of buttock Contusion of left hip Debility Deep vein thrombosis (DVT) of right lower extremity Dehydration Essential hypertension Fall Gram-negative bacteremia Hypothyroidism Multiple myeloma Non-rheumatic aortic stenosis SORIN on CPAP Pure hypercholesterolemia Strain of left hip Thoracic aortic aneurysm without rupture UTI due to extended-spectrum beta lactamase (ESBL) producing Escherichia coli Home Medications acetaminophen 1,000 mg PO Q6H PRN PRN tab 12/30/18 [Rx Last Taken Unknown] amiodarone 100 mg tablet 100 mg PO DAILY #90 tab 07/11/19 [Rx Last Taken 04/20/20] furosemide 40 mg tablet 20 mg PO DAILY PRN tab 08/30/19 [History Last Taken Unknown] levothyroxine 50 mcg tablet 50 mcg PO DAILY #90 tab 09/22/19 [Rx Last Taken 04/20/20] atorvastatin 10 mg tablet 10 mg PO QHS #90 tab 12/29/19 [Rx Last Taken Unknown] aspirin 81 mg tablet,delayed release 81 mg PO DAILY 04/09/20 [History Last Taken 04/20/20] pomalidomide 2 mg capsule 2 mg PO DAILY 07/01/20 [History Last Taken Unknown] clopidogrel 75 mg tablet 75 mg PO DAILY 07/24/20 [History Last Taken Unknown] dexamethasone 4 mg tablet 20 mg PO QWEEK 08/16/20 [History Last Taken Unknown] amoxicillin-pot clavulanate 875 mg PO Q12H #20 tablet 10/11/20 [Rx Last Taken Unknown] Allergy/AdvReac Type Severity Reaction Status Date / Time adhesive tape AdvReac Other Verified 10/12/20 10:33 levofloxacin [From Levaquin] AdvReac PT UNSURE Verified 10/12/20 10:33 OF REACTION Family History Father Heart disease Mother Heart disease CVA (cerebral vascular accident) Brother CAD (coronary artery disease) Surgical History History of left heart catheterization (LHC) (~04/24/20) History of total right knee replacement (TKR) 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) Social History Smoking Status: Former smoker alcohol intake: current substance use type: does not use caffeine: No Physical Exam Const alert and no apparent distress General Appearance: cooperative Exam Limitations: no limitations HEENT head/scalp atraumatic Eyes PERRL and EOMs intact bilaterally Neck supple and No nodes Resp normal air movement and clear to auscultation bilaterally Cardio regular rate and regular rhythm GI normal to inspection, nondistended, normoactive bowel sounds Extremity Extremity Narrative: LUE General Extremity: edema Skin Skin Narrative: reviewed photo LUE Medical Records Data Medical Nutrition Assessment Dietitian: Malnutrition Criteria Met Start: 10/13/20 11:23 Freq: Status: Active Protocol: Document 10/13/20 11:33 (Rec: 10/13/20 11:33 [id number]) Nutrition Malnutrition Evidence of Malnutrition Exists No Intake Problem Increased Nutrient Needs (specify) Etiology (protein) r/t bacteremia, wound, and myeloma Signs/Symptoms as evidenced by increased estimated protein needs Status Active Problem Recommendation Dietitian Recommendations/Changes continue cardiac diet as tolerated, consider regular diet if PO at meals declines; 240mL Ensure Enlive w/ lunch per home routine. Lab / Micro Data Result Diagrams: 10/14/20 05:12 10/14/20 05:12 Labs: Laboratory Results - last 24 hr 10/14/20 05:12: WBC 4.8, RBC 2.91 L, Hgb 9.8 L, Hct 32.2 L, MCV 110.7 H, MCH 33.7 H, MCHC 30.4 L, RDW Std Deviation 63.7 H, RDW Coeff of Chery 15.5 H, Plt Count 66 L, MPV 12.1 H, Immature Gran % (Auto) 0.600, Neut % (Auto) 54.9, Lymph % (Auto) 17.8 L, [place] % (Auto) 16.6 H, Eos % (Auto) 9.9 H, Baso % (Auto) 0.2, Absolute Neuts (auto) 2.6, Absolute Lymphs (auto) 0.85, Nucleated RBC % 0 10/14/20 05:12: Sodium 142, Potassium 3.7, Chloride 114 H, Carbon Dioxide 22.0, Anion Gap 6, BUN 23 H, Creatinine 0.60 L, Estim Creat Clear Calc 58.81, Est GFR (MDRD) Af Amer 164, Est GFR (MDRD) Non-Af 136, BUN/Creatinine Ratio 38.1 H, Glucose 92, Calcium 8.2 L Micro: Microbiology 10/12/20 11:53 Blood Culture (Wb) - Right Hand Blood Culture - Preliminary No growth in 48 hours. 10/12/20 11:40 Blood Culture (Wb) - Right Wrist Blood Culture - Preliminary No growth in 48 hours.
--- NOTE | 2020-10-14 16:06 | PN.HOSP_ITS ---
Subjective Subjective Feels well no complaints. Objective Data Objective Data Vital Signs: Vital Signs Temp Pulse Resp BP Pulse Ox 36.4 C L 74 18 123/65 H 100 10/14/20 09:50 10/14/20 09:50 10/14/20 09:50 10/14/20 09:50 10/14/20 09:50 Oxygen Delivery Method Room Air Weight: 107.1 kg Body Mass Index (BMI) 33.8 Intake & Output: Intake and Output for Last 24 Hours 10/12/20 10/13/20 10/14/20 23:59 23:59 23:59 Intake Total 450 / 450 1820.00 / 1820.00 100 / 100 Output Total 1275 / 1275 300 / 300 Balance 450 / 225 545.00 / 545.00 -200 / -200 Medical Nutrition Assessment Dietitian: Malnutrition Criteria Met Start: 10/13/20 11:23 Freq: Status: Active Protocol: Document 10/13/20 11:33 AG (Rec: 10/13/20 11:33 AG [id number]) Nutrition Malnutrition Evidence of Malnutrition Exists No Intake Problem Increased Nutrient Needs (specify) Etiology (protein) r/t bacteremia, wound, and myeloma Signs/Symptoms as evidenced by increased estimated protein needs Status Active Problem Recommendation Dietitian Recommendations/Changes continue cardiac diet as tolerated, consider regular diet if PO at meals declines; 240mL Ensure Enlive w/ lunch per home routine. Lab / Micro Data Result Diagrams: 10/14/20 05:12 10/14/20 05:12 Labs: Laboratory Results - last 24 hr 10/14/20 05:12: WBC 4.8, RBC 2.91 L, Hgb 9.8 L, Hct 32.2 L, MCV 110.7 H, MCH 33.7 H, MCHC 30.4 L, RDW Std Deviation 63.7 H, RDW Coeff of Chery 15.5 H, Plt Count 66 L, MPV 12.1 H, Immature Gran % (Auto) 0.600, Neut % (Auto) 54.9, Lymph % (Auto) 17.8 L, [place] % (Auto) 16.6 H, Eos % (Auto) 9.9 H, Baso % (Auto) 0.2, Absolute Neuts (auto) 2.6, Absolute Lymphs (auto) 0.85, Nucleated RBC % 0 10/14/20 05:12: Sodium 142, Potassium 3.7, Chloride 114 H, Carbon Dioxide 22.0, Anion Gap 6, BUN 23 H, Creatinine 0.60 L, Estim Creat Clear Calc 58.81, Est GFR (MDRD) Af Amer 164, Est GFR (MDRD) Non-Af 136, BUN/Creatinine Ratio 38.1 H, Glucose 92, Calcium 8.2 L Micro: Microbiology 10/12/20 11:53 Blood Culture (Wb) - Right Hand Blood Culture - Preliminary No growth in 48 hours. 10/12/20 11:40 Blood Culture (Wb) - Right Wrist Blood Culture - Preliminary No growth in 48 hours. Physical Exam Const alert and oriented x3 Resp normal respiratory effort, no retractions, no use of accessory muscles and clear to auscultation bilaterally Cardio regular rate, regular rhythm, S1 normal heart sound and S2 normal heart sound GI normal to inspection, nondistended, normoactive bowel sounds, soft to palpation, non-tender and non-distended Neuro Sensorium / Orientation: awake and alert Psych affect normal Assessment & Plan Assessment/Plan (1) Gram-negative bacteremia: (2) Cellulitis of left upper extremity: PLAN: 1. Gram-negative yoselin bacteremia Etiology is likely cellulitis Waiting on final sensitivity On cefepime 2. Left lower extremity cellulitis Still with erythema is visualized on imaging performed by Cecilia Brown Continue with cefepime 3. History of ESBL UTI Back in August Urinalysis not performed nor is he complaining of any issues at this present 4. VTE prophylaxis with low molecular heparin Charges/Coding Visit Charges Inpatient E&M: 27653 Subs Hosp L2
--- NOTE | 2020-10-14 19:43 | NURSING ---
Pandemic Documentation Date: 10/14/2020 Time:190
[2020-10-14] MEDS: Atorvastatin Calcium 10 MG Tablet PO (21:43)
[2020-10-15] VITALS (8 sets, daily range): BP systolic 104–129; BP diastolic 61–86; PULSE 63–79; RESP 14–18; TEMP 36.1–36.5; O2SAT 98–99
[2020-10-15] MEDS: Levothyroxine 50 MCG Tablet PO (05:54)
[2020-10-15 06:37] LABS: Absolute Neutrophil Count 2.7 X10^3/uL (2.0-7.7); Basophil# 0.01 X10^3/uL; Basophil% 0.2 % (0-1); Hematocrit 31.8 % (40-54); Lymphocyte % 23.6 % (19-41); Mean Corp Hgb Conc 31.4 g/dL (32-36); Mean Corpuscular Hgb 33.6 pg (27.0-32.0); Mean Corpuscular Volume 106.7 fL (80-94); Mean Platelet Vol. 11.8 fl (6.2-12.0); Monocyte# 0.44 X10^3/uL; Monocyte% 10.4 % (0-10); NRBC Flagged by Analyzer 0 % (0-5); Neutrophil # 2.74 X10^3/uL (2.7-7.7); Neutrophil % 64.9 % (47-70); POSITIVE COUNT YES; Platelet Count 70 K/mm3 (150-450); RBC Distribution Width CV 15.4 % (11.6-14.6); RBC Distribution Width SD 59.3 fl (35.1-43.9); Red Blood Count 2.98 M/mm3 (4.6-6.2); White Blood Count 4.2 K/mm3 (4.4-11.0)
[2020-10-15 06:56] LABS: Anion Gap 6 (5-15); BUN 21 mg/dL (7-18); BUN/Creat Ratio 32.7 RATIO (10-20); Calcium,Total 8.3 mg/dL (8.5-10.1); Chloride 115 mmol/L (98-107); Creatinine, Serum 0.64 mg/dL (0.70-1.30); EST Glomerular Filtration Rate 127 mL/min (>60); Est Glom Filt Rate - Afr Amer 153 mL/min (>60); Estimated Creatinine Clearance 58.81 ml/min; Glucose 146 mg/dL (74-106); Potassium 4.5 mmol/L (3.5-5.1); Sodium Level 143 mmol/L (136-145)
[2020-10-15] MEDS: Enoxaparin 40 MG/0.4 ML Syringe SC (10:08)
[2020-10-15] MEDS: Aspirin E.C. 81 MG Tablet PO (10:08)
[2020-10-15] MEDS: Amiodarone 200 MG Tablet 100 MG PO (10:08)
[2020-10-15] MEDS: Clopidogrel Bisulfate 75 MG Tablet PO (10:08)
--- NOTE | 2020-10-15 14:00 | PN.HOSP_ITS ---
Subjective Subjective States that left arm is feeling better. Objective Data Objective Data Vital Signs: Vital Signs Temp Pulse Resp BP Pulse Ox 36.4 C L 72 16 118/86 H 99 10/15/20 10:02 10/15/20 10:02 10/15/20 10:02 10/15/20 10:02 10/15/20 10:02 Oxygen Delivery Method Room Air Weight: 107.1 kg Body Mass Index (BMI) 33.8 Intake & Output: Intake and Output for Last 24 Hours 10/13/20 10/14/20 10/15/20 23:59 23:59 23:59 Intake Total 1820.00 / 1820.00 100 / 100 100 / 100 Output Total 1275 / 1275 300 / 300 650 / 650 Balance 545.00 / 545.00 -200 / -200 -550 / -550 Medical Nutrition Assessment Dietitian: Malnutrition Criteria Met Start: 10/13/20 11:23 Freq: Status: Active Protocol: Document 10/13/20 11:33 (Rec: 10/13/20 11:33 [id number]) Nutrition Malnutrition Evidence of Malnutrition Exists No Intake Problem Increased Nutrient Needs (specify) Etiology (protein) r/t bacteremia, wound, and myeloma Signs/Symptoms as evidenced by increased estimated protein needs Status Active Problem Recommendation Dietitian Recommendations/Changes continue cardiac diet as tolerated, consider regular diet if PO at meals declines; 240mL Ensure Enlive w/ lunch per home routine. Lab / Micro Data Result Diagrams: 10/15/20 05:45 10/15/20 05:45 Labs: Laboratory Results - last 24 hr 10/15/20 05:45: WBC 4.2 L, RBC 2.98 L, Hgb 10.0 L, Hct 31.8 L, MCV 106.7 H, MCH 33.6 H, MCHC 31.4 L, RDW Std Deviation 59.3 H, RDW Coeff of Chery 15.4 H, Plt Count 70 L, MPV 11.8, Immature Gran % (Auto) 0.900, Neut % (Auto) 64.9, Lymph % (Auto) 23.6, [place] % (Auto) 10.4 H, Eos % (Auto) 0.0, Baso % (Auto) 0.2, Absolute Neuts (auto) 2.7, Absolute Lymphs (auto) 1.00, Nucleated RBC % 0 10/15/20 05:45: Sodium 143, Potassium 4.5, Chloride 115 H, Carbon Dioxide 22.0, Anion Gap 6, BUN 21 H, Creatinine 0.64 L, Estim Creat Clear Calc 58.81, Est GFR (MDRD) Af Amer 153, Est GFR (MDRD) Non-Af 127, BUN/Creatinine Ratio 32.7 H, Glucose 146 H, Calcium 8.3 L Micro: Microbiology 10/12/20 11:53 Blood Culture (Wb) - Right Hand Blood Culture - Preliminary No growth in 48 hours. 10/12/20 11:40 Blood Culture (Wb) - Right Wrist Blood Culture - Preliminary No growth in 48 hours. Physical Exam Const alert HEENT Head and Scalp: normocephalic Resp normal respiratory effort, no retractions, no use of accessory muscles and clear to auscultation bilaterally Cardio regular rate, regular rhythm, S1 normal heart sound and S2 normal heart sound GI normal to inspection, nondistended, normoactive bowel sounds, soft to palpation, non-tender and non-distended Extremity Extremity Narrative: decreasing erythema in LUE and warmth, but now more prominent medially. Assessment & Plan Assessment/Plan (1) Gram-negative bacteremia: (2) Cellulitis of left upper extremity: PLAN: 1. Gram-negative yoselin bacteremia Etiology is likely cellulitis Cx + for Sphingomonas paucimobilius from the . Bcx from 10/12 still negative. On cefepime ID following 2. Left lower extremity cellulitis erythema improving Continue with cefepime 3. History of ESBL UTI Back in August Urinalysis not performed nor is he complaining of any issues at this present 4. VTE prophylaxis with low molecular heparin Charges/Coding Visit Charges Inpatient E&M: 36836 Subs Hosp L2
--- NOTE | 2020-10-15 16:17 | CASEMGMT ---
Palliative screening tool completed for Lace/Strata 3. Patient does not meets criteria for palliative consult at this time.
[2020-10-15] MEDS: Atorvastatin Calcium 10 MG Tablet PO (21:35)
[2020-10-16 03:00] VITALS: PULSE 66
[2020-10-16 03:35] VITALS: BP 113/69; PULSE 70; RESP 16; TEMP 36.4; O2SAT 98
[2020-10-16] MEDS: Levothyroxine 50 MCG Tablet PO (05:31)
[2020-10-16 07:00] VITALS: PULSE 64
[2020-10-16] MEDS: Amiodarone 200 MG Tablet 100 MG PO (08:51)
[2020-10-16] MEDS: Enoxaparin 40 MG/0.4 ML Syringe SC (08:52)
[2020-10-16] MEDS: Clopidogrel Bisulfate 75 MG Tablet PO (08:52)
[2020-10-16] MEDS: Aspirin E.C. 81 MG Tablet PO (08:52)
[2020-10-16 09:35] VITALS: BP 120/75; PULSE 64; RESP 16; TEMP 36.7; O2SAT 98
--- NOTE | 2020-10-16 10:52 | CT_ITS ---
STUDY: CT SCAN OF THE EXTREMITY LEFT REASON FOR EXAM: Male, 80 years old. Cellulitis RADIATION DOSAGE (If Supplied By Facility): CTDIvol = ( 24.58 ) mGy, DLP = ( 1126.04 ) mGycm. Individualized dose optimization techniques were used for this CT.? TECHNIQUE: Multiple axial tomographic images of the left upper extremity were obtained following intravenous contrast demonstration. Coronal and sagittal reconstruction was obtained as well. COMPARISON: None. FINDINGS: There is evidence of diffuse increased markings within the subcutaneous fat involving the arm and forearm. There is evidence of a 3 cm x 1.9 cm x 7.6 cm fluid collection along the posterior lateral aspect of the mid and distal portion of the arm. Overlying skin thickening. CT/Extremity Upper WITH Contrast IMPRESSION: Diffuse cellulitis and skin thickening as described. 3 cm x 1.9 cm x 6.6 cm fluid collection along the posterior-lateral aspect of the mid and distal portion of the arm. Electronically Signed: Yonathan Foy MD at 12:28 EDT , Service support ,
[2020-10-16 11:00] VITALS: PULSE 64
--- NOTE | 2020-10-16 11:08 | CASEMGMT ---
Mcr Notice Went to patient bedside, verified patient name, . Introduced self and role. Explained/reviewed IP Mcr Notice with patient. Acknowledged and signed form. Copy provided to patient and original placed in patient hard chart. LUDA HullCM
--- NOTE | 2020-10-16 14:17 | PN.HOSP_ITS ---
Subjective Subjective left arm feeling better. Objective Data Objective Data Vital Signs: Vital Signs Temp Pulse Resp BP Pulse Ox 36.7 C 64 16 120/75 98 10/16/20 09:35 10/16/20 11:00 10/16/20 09:35 10/16/20 09:35 10/16/20 09:35 Oxygen Delivery Method Room Air Weight: 107.1 kg Body Mass Index (BMI) 33.8 Intake & Output: Intake and Output for Last 24 Hours 10/14/20 10/15/20 10/16/20 23:59 23:59 23:59 Intake Total 100 / 100 100 / 100 100 / 100 Output Total 300 / 300 1100 / 1100 525 / 525 Balance -200 / -200 -1000 / -1000 -425 / -425 Medical Nutrition Assessment Dietitian: Malnutrition Criteria Met Start: 10/13/20 11:23 Freq: Status: Active Protocol: Document 10/13/20 11:33 AG (Rec: 10/13/20 11:33 AG [id number]) Nutrition Malnutrition Evidence of Malnutrition Exists No Intake Problem Increased Nutrient Needs (specify) Etiology (protein) r/t bacteremia, wound, and myeloma Signs/Symptoms as evidenced by increased estimated protein needs Status Active Problem Recommendation Dietitian Recommendations/Changes continue cardiac diet as tolerated, consider regular diet if PO at meals declines; 240mL Ensure Enlive w/ lunch per home routine. Lab / Micro Data Result Diagrams: 10/15/20 05:45 10/15/20 05:45 Micro: Microbiology 10/12/20 11:53 Blood Culture (Wb) - Right Hand Blood Culture - Preliminary No growth in 48 hours. 10/12/20 11:40 Blood Culture (Wb) - Right Wrist Blood Culture - Preliminary No growth in 48 hours. Radiography Diagnostic Testing: Radiology Impression Upper Extremity CT 10/16/20 10:52 IMPRESSION: Diffuse cellulitis and skin thickening as described. 3 cm x 1.9 cm x 6.6 cm fluid collection along the posterior-lateral aspect of the mid and distal portion of the arm. Electronically Signed: Yonathan Foy MD at 12:28 EDT , Service support , Physical Exam Const alert and no apparent distress Eyes Eyes Narrative: no icterus Resp normal respiratory effort, no retractions, no use of accessory muscles and clear to auscultation bilaterally Cardio regular rate, regular rhythm, S1 normal heart sound and S2 normal heart sound GI normal to inspection, nondistended, normoactive bowel sounds, soft to palpation, non-tender and non-distended Extremity Extremity Narrative: Still with warmth to the left upper extremity and some bogginess in the medial left arm adjacent to his elbow. Skin Skin Narrative: Still with erythema of the left upper extremity. Within the a yaniv of demarcation. Assessment & Plan Assessment/Plan (1) Gram-negative bacteremia: (2) Cellulitis of left upper extremity: PLAN: 1. Gram-negative yoselin bacteremia Etiology is likely cellulitis Cx + for Sphingomonas paucimobilius from the . Bcx from 10/12 still negative. On cefepime ID following 2. Left lower extremity cellulitis erythema improving Culture positive for Raoultella sensitive to all but ampicillin CT showed posterior lateral 3x2x6.6 fluid collection Continue with cefepime Page out to ortho for recommnedations. 3. History of ESBL UTI Back in August Urinalysis not performed nor is he complaining of any issues at this present 4. VTE prophylaxis with low molecular heparin Charges/Coding Visit Charges Inpatient E&M: 67144 Subs Hosp L2
[2020-10-16 15:00] VITALS: BP 128/72; PULSE 65; PULSE 66; RESP 18; TEMP 36.7; O2SAT 97
--- NOTE | 2020-10-16 18:15 | CON.PCM_ITS ---
Assessment & Plan Assessment/Plan (1) Thrombocytopenia: (2) Cellulitis of arm, left: (3) Gram-negative bacteremia: (4) Cellulitis of left upper extremity: (5) Bacteremia: (6) Edema: QUALIFIERS: Edema type: generalized Qualified Code(s): R60.1 - Generalized edema PLAN: Being on multiple anticoagulation medications and have advanced age and poor nutritional status after fall patient sustained significant swelling and ecchymosis to the left upper extremity without fracture. Cellulitis after superficial wounds is being treated with antibiotics in regards to CT scan findings clinical exam not consistent with abscess upon further review of CT and reevaluation and consultation with online radiology who agree dependent fluid in the subfascial area of the radial triceps is not consistent with abscess more consistent with seroma versus hematoma from injury. At this point no surgical consideration however if situation symptoms change I would be happy to reevaluate. Continue with antibiotics per infectious disease. Recked elevation of the left upper extremity encouraged with finger wrist and elbow range of motion, no weightbearing restriction. HPI Consult Data Date of Consult: 10/16/20 HPI Narrative HPI Narrative: ADDISON AGGARWAL, is a 80 M who has multiple medical comorbidities and is on multiple anticoagulants who has had prior history of significant degloving injury to left elbow years prior who had scraped his left arm and forearm on the shower door, he also admits to falling onto the left arm at the time, and he developed significant ecchymosis throughout the arm forearm and hand. He did have positive blood cultures for gram-negative bacteria as well as sphingomonas paucimobilis, and is currently being treated by infectious disease with IV cefepime. He has responded to this his pain is improving. CT scan was performed of the left upper extremity demonstrating fluid collection in the subfascial plane on the radial side of the distal triceps muscle as well as edematous subcutaneous tissue throughout the arm and forearm hence consultation for surgical intervention. PENDING SALE TO [facility] Medical History Atherosclerotic heart disease of [place] coronary artery without angina pectoris BPH (benign prostatic hyperplasia) BPH w/o urinary obs/LUTS Chronic atrial fibrillation Contusion of buttock Contusion of left hip Debility Deep vein thrombosis (DVT) of right lower extremity Dehydration Essential hypertension Fall Gram-negative bacteremia Hypothyroidism Multiple myeloma Non-rheumatic aortic stenosis SORIN on CPAP Pure hypercholesterolemia Strain of left hip Thoracic aortic aneurysm without rupture UTI due to extended-spectrum beta lactamase (ESBL) producing Escherichia coli Home Medications acetaminophen 1,000 mg PO Q6H PRN PRN tab 12/30/18 [Rx Last Taken Unknown] amiodarone 100 mg tablet 100 mg PO DAILY #90 tab 07/11/19 [Rx Last Taken 04/20/20] furosemide 40 mg tablet 20 mg PO DAILY PRN tab 08/30/19 [History Last Taken Unknown] levothyroxine 50 mcg tablet 50 mcg PO DAILY #90 tab 09/22/19 [Rx Last Taken 04/20/20] atorvastatin 10 mg tablet 10 mg PO QHS #90 tab 12/29/19 [Rx Last Taken Unknown] aspirin 81 mg tablet,delayed release 81 mg PO DAILY 04/09/20 [History Last Taken 04/20/20] pomalidomide 2 mg capsule 2 mg PO DAILY 07/01/20 [History Last Taken Unknown] clopidogrel 75 mg tablet 75 mg PO DAILY 07/24/20 [History Last Taken Unknown] dexamethasone 4 mg tablet 20 mg PO QWEEK 08/16/20 [History Last Taken Unknown] amoxicillin-pot clavulanate 875 mg PO Q12H #20 tablet 10/11/20 [Rx Last Taken Unknown] Allergy/AdvReac Type Severity Reaction Status Date / Time adhesive tape AdvReac Other Verified 10/12/20 10:33 levofloxacin [From Levaquin] AdvReac PT UNSURE Verified 10/12/20 10:33 OF REACTION Family History Father Heart disease Mother Heart disease CVA (cerebral vascular accident) Brother CAD (coronary artery disease) Surgical History History of left heart catheterization (LHC) (~04/24/20) History of total right knee replacement (TKR) 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 There are 2 superficial excoriations one in the antecubital area and one on the medial forearm neither has drainage or subcutaneous fluctuance there is scabbing in the area. He does have full elbow range of motion wrist range of motion finger range of motion without significant pain. He has 2 out of 4 radial pulse he does have deformity to the ring finger from prior tablesaw injury. He does have extensive scarring from injury to the elbow and forearm in the remote past causing a degloving type of injury at the time. There is no area of fluctuance particularly noted in the area of concern on CT scan on the radial distal aspect of the triceps or concern in the bursal area. There is no joint effusion of the elbow. He has an intact triceps and biceps tendon. Medical Records Data Medical Nutrition Assessment Dietitian: Malnutrition Criteria Met Start: 10/13/20 11:23 Freq: Status: Active Protocol: Document 10/13/20 11:33 (Rec: 10/13/20 11:33 [id number]) Nutrition Malnutrition Evidence of Malnutrition Exists No Intake Problem Increased Nutrient Needs (specify) Etiology (protein) r/t bacteremia, wound, and myeloma Signs/Symptoms as evidenced by increased estimated protein needs Status Active Problem Recommendation Dietitian Recommendations/Changes continue cardiac diet as tolerated, consider regular diet if PO at meals declines; 240mL Ensure Enlive w/ lunch per home routine. Lab / Micro Data Result Diagrams: 10/15/20 05:45 10/15/20 05:45 Radiology Impression Upper Extremity CT 10/16/20 10:52 IMPRESSION: Diffuse cellulitis and skin thickening as described. 3 cm x 1.9 cm x 6.6 cm fluid collection along the posterior-lateral aspect of the mid and distal portion of the arm. Electronically Signed: Yonathan Foy MD at 12:28 EDT , Service support ,
--- NOTE | 2020-10-16 18:27 | PCM.DC ---
Discharge Instructions Diet Discharge Diet: Low fat / Low cholesterol Activity Discharge Activity: Return to Normal Activity Dressing / Incision Call your doctor if your incision/area has: Increased Pain/ Swelling, Increased Redness and Swelling at the incision site Call your doctor if you observe: Fever of 101 or Higher Follow Up Care Test Results: Test results from this visit will be discussed in further detail at your follow-up appointment, if applicable. Discharge Plan Admission Admit Date/Time: 10/12/20 12:44 Primary Reason for Your Visit: left arm cellulitis and bacteremia Attending Provider: Luis F Quevedo Primary Care Provider: Tiburcio Leger Consulting Providers: Ricki Ace ; Seymour Argueta Discharge Orders/Prescriptions Prescriptions: New sulfamethoxazole-trimethoprim [Bactrim DS] 800-160 mg tablet 1 tab PO Q12H Qty: 10 RF: 0 Continued furosemide 40 mg tablet 20 mg PO DAILY PRN (Reason: Swelling) RF: 0 dexamethasone 4 mg tablet 20 mg PO QWEEK RF: 0 acetaminophen 500 MG tablet 1,000 mg PO Q6H PRN PRN (Reason: Pain Score 1-3/10) RF: 0 amiodarone 100 mg tablet 100 mg PO DAILY Qty: 90 RF: 3 levothyroxine 50 mcg tablet 50 mcg PO DAILY Qty: 90 RF: 3 atorvastatin 10 mg tablet 10 mg PO QHS Qty: 90 RF: 3 aspirin [Adult Low Dose Aspirin] 81 mg tablet,delayed release (DR/EC) 81 mg PO DAILY RF: 0 pomalidomide 2 mg capsule 2 mg PO DAILY RF: 0 clopidogrel 75 mg tablet 75 mg PO DAILY RF: 0 Discontinued amoxicillin-pot clavulanate [amoxicillin-pot clavulanate] 875 MG tablet 875 mg PO Q12H Qty: 20 RF: 0 Referrals / Follow Up: Tiburcio Leger MD [Primary Care Provider] - Within 1 Week Disposition Disposition (needs filled in before D/C Order can be placed): Home, Self Care
--- NOTE | 2020-10-16 18:31 | PCM.DC.SUM ---
Providers Date of Admission: 10/12/20 Primary Care Physician: Dr. Tiburcio Leger MD Consultations 10/12/20 15:43 Consult: Infectious Disease Routine Consulting Provider: Ricki Ace Reason for Consult: Bactermia in a pt with Multiple Myeloma EMERGENT Consult: No Notified: Yes Date Notified: 10/14/20 Time Notified: 06:29 Method of Notification: Answering Service 10/16/20 17:50 Consult: Orthopedics Routine Consulting Provider: Seymour Argueta Reason for Consult: left arm fluid collection EMERGENT Consult: No Notified: Yes Date Notified: 10/16/20 Time Notified: 17:51 Method of Notification: Verbal Reason For Visit: GN BACTEREMIA/CELLULITIS Diagnosis Discharge Diagnosis (1) Thrombocytopenia: Status: Acute Code(s): D69.6 - Thrombocytopenia, unspecified (2) Cellulitis of arm, left: Status: Acute Code(s): L03.114 - Cellulitis of left upper limb (3) Gram-negative bacteremia: Status: Acute Code(s): R78.81 - Bacteremia (4) Cellulitis of left upper extremity: Status: Acute Code(s): L03.114 - Cellulitis of left upper limb (5) Bacteremia: Status: Acute Code(s): R78.81 - Bacteremia (6) Edema: Status: Acute Code(s): R60.9 - Edema, unspecified Qualifiers: Edema type: generalized Qualified Code(s): R60.1 - Generalized edema Medications at Discharge Home Medications acetaminophen 1,000 mg PO Q6H PRN PRN tab 12/30/18 amiodarone 100 mg tablet 100 mg PO DAILY #90 tab 07/11/19 furosemide 40 mg tablet 20 mg PO DAILY PRN tab 08/30/19 levothyroxine 50 mcg tablet 50 mcg PO DAILY #90 tab 09/22/19 atorvastatin 10 mg tablet 10 mg PO QHS #90 tab 12/29/19 aspirin 81 mg tablet,delayed release 81 mg PO DAILY 04/09/20 pomalidomide 2 mg capsule 2 mg PO DAILY 07/01/20 clopidogrel 75 mg tablet 75 mg PO DAILY 07/24/20 dexamethasone 4 mg tablet 20 mg PO QWEEK 08/16/20 sulfamethoxazole-trimethoprim [Bactrim DS] 1 tab PO Q12H #10 tab 08/18/21 Hospital Course Summary of Care Provided Minutes Spent on Discharge: 45 Hospital Course: 80-year-old male who developed a contusion of his left arm had cultures drawn and were positive for and patient lili come to the emergency room. 1. Gram-negative yoselin bacteremia Etiology is likely cellulitis Cx + for Sphingomonas paucimobilius from the . Bcx from 10/12 still negative. On cefepime ID following Change antibiotics to trimethoprim/sulfamethoxazole to complete 10-day course. 2. Left lower extremity cellulitis erythema improving Culture positive for Raoultella sensitive to all but ampicillin CT showed posterior lateral 3x2x6.6 fluid collection Change antibiotics to trimethoprim/sulfamethoxazole to complete 10-day course. 3. Left arm fluid collection DW Dr. Muñiz. Not felt to be abscess but possible hematoma or just dependent edema. Given overall improvement no intervention is necessary. Medical Records Data Medical Nutrition Assessment Dietitian: Malnutrition Criteria Met Start: 10/13/20 11:23 Freq: Status: Active Protocol: Document 10/13/20 11:33 AG (Rec: 10/13/20 11:33 [id number]) Nutrition Malnutrition Evidence of Malnutrition Exists No Intake Problem Increased Nutrient Needs (specify) Etiology (protein) r/t bacteremia, wound, and myeloma Signs/Symptoms as evidenced by increased estimated protein needs Status Active Problem Recommendation Dietitian Recommendations/Changes continue cardiac diet as tolerated, consider regular diet if PO at meals declines; 240mL Ensure Enlive w/ lunch per home routine. Weight / BMI Weight Weight: 107.1 kg Body Mass Index (BMI) 33.8 ABG / Lab / Microbiology Data Result Diagrams: 10/15/20 05:45 10/15/20 05:45 Microbiology: Microbiology 10/12/20 11:53 Blood Culture (Wb) - Right Hand Blood Culture - Preliminary No growth in 48 hours. 10/12/20 11:40 Blood Culture (Wb) - Right Wrist Blood Culture - Preliminary No growth in 48 hours. Radiography Diagnostic Testing: Radiology Impression Upper Extremity CT 10/16/20 10:52 IMPRESSION: Diffuse cellulitis and skin thickening as described. 3 cm x 1.9 cm x 6.6 cm fluid collection along the posterior-lateral aspect of the mid and distal portion of the arm. Electronically Signed: Yonathan Foy MD at 12:28 EDT , Service support , D/C Instructions Discharge Diet: Low fat / Low cholesterol Call your doctor if your incision/area has: Increased Pain/ Swelling, Increased Redness and Swelling at the incision site Call your doctor if you observe: Fever of 101 or Higher Meaningful Use Info Meaningful Use Diagnoses (Choose all that apply): None applicable Discharge Plan Admission Admit Date/Time: 10/12/20 12:44 Primary Reason for Your Visit: left arm cellulitis and bacteremia Attending Provider: Luis F Quevedo Primary Care Provider: Tiburcio Leger Consulting Providers: Ricki Ace ; Seymour Argueta Discharge Orders/Prescriptions Prescriptions: New sulfamethoxazole-trimethoprim [Bactrim DS] 800-160 mg tablet 1 tab PO Q12H Qty: 10 RF: 0 Continued furosemide 40 mg tablet 20 mg PO DAILY PRN (Reason: Swelling) RF: 0 dexamethasone 4 mg tablet 20 mg PO QWEEK RF: 0 acetaminophen 500 MG tablet 1,000 mg PO Q6H PRN PRN (Reason: Pain Score 1-3/10) RF: 0 amiodarone 100 mg tablet 100 mg PO DAILY Qty: 90 RF: 3 levothyroxine 50 mcg tablet 50 mcg PO DAILY Qty: 90 RF: 3 atorvastatin 10 mg tablet 10 mg PO QHS Qty: 90 RF: 3 aspirin [Adult Low Dose Aspirin] 81 mg tablet,delayed release (DR/EC) 81 mg PO DAILY RF: 0 pomalidomide 2 mg capsule 2 mg PO DAILY RF: 0 clopidogrel 75 mg tablet 75 mg PO DAILY RF: 0 Discontinued amoxicillin-pot clavulanate [amoxicillin-pot clavulanate] 875 MG tablet 875 mg PO Q12H Qty: 20 RF: 0 Referrals / Follow Up: Tiburcio Leger MD [Primary Care Provider] - Within 1 Week Disposition Disposition (needs filled in before D/C Order can be placed): Home, Self Care Charges/Coding Visit Charges Inpatient E&M: 94645 Disch Hosp
--- NOTE | 2020-10-16 19:10 | PCM.PN.ID ---
Physical Exam Narrative Feeling better, no fever Const alert Resp normal air movement and clear to auscultation bilaterally Cardio regular rate and regular rhythm Skin Skin Narrative: bruising, edema of BUE, L more than R ID ID: Route of nutrition/ use of supplements: [] Nutritional Intake: [] IV Site: [] Grove Catheter: [] Assessment & Plan Assessment/Plan (1) Gram-negative bacteremia: PLAN: Has h/o esbl ecoli uti, but sphingomonas seems likely from LUE cellulitis/wound. On cefepime, responding well. Home with 5 more days bactrim, GFR is good. Will follow as needed (2) Cellulitis of left upper extremity:
--- NOTE | 2020-10-17 13:40 | CASEMGMT ---
LUDA BABCOCK Discharge Follow-up Phone Call: JOEL: Shannon Strata: 3 Call Date: 10/17/20 Discharge Date: 10/16/20 Time of Call: 1336 Duration: 3 min Admitting Diagnosis: GN Bacteremia, cellulitis LUDA BABCOCK completed follow-up phone call after recent hospitalization. Patient states he is doing well. Patient had no questions regarding discharge instructions. Patient was able to fill prescriptions without any issues. Patient is aware to schedule follow-up appt with PCP. Patient had no further questions or concerns at this time.
== END 2020-10-16 19:27 | disposition home or self-care (01) | DRG 603 ==
LOC: ED 11:35 → PCU 13:30
PROVIDERS: Admitting Provider Internal Medicine; Emergency Provider Emergency Medicine; PCP Family Medicine
DX: L03.114 Cellulitis of left upper limb (principal); R78.81 Bacteremia; C90.00 Multiple myeloma not having achieved remission; Z16.12 Extended spectrum beta lactamase (ESBL) resistance; B96.89 Other specified bacterial agents as the cause of diseases classified elsewhere; D69.6 Thrombocytopenia, unspecified; D63.0 Anemia in neoplastic disease; R60.1 Generalized edema; S40.022A Contusion of left upper arm, initial encounter; W18.2XXA Fall in (into) shower or empty bathtub, initial encounter; I25.10 Atherosclerotic heart disease of native coronary artery without angina pectoris; G47.33 Obstructive sleep apnea (adult) (pediatric); N40.0 Benign prostatic hyperplasia without lower urinary tract symptoms; I71.2 Thoracic aortic aneurysm, without rupture; I10 Essential (primary) hypertension; I48.0 Paroxysmal atrial fibrillation; I35.0 Nonrheumatic aortic (valve) stenosis; E78.00 Pure hypercholesterolemia, unspecified; E03.9 Hypothyroidism, unspecified; R29.6 Repeated falls; Z95.2 Presence of prosthetic heart valve; Z79.02 Long term (current) use of antithrombotics/antiplatelets; Z79.82 Long term (current) use of aspirin; Z79.899 Other long term (current) drug therapy; Z87.891 Personal history of nicotine dependence; Z86.73 Personal history of transient ischemic attack (TIA), and cerebral infarction without residual deficits
CPT/HCPCS: 36415; 73201; 80048; 80053; 83605; 83735; 84100; 85025; 87040; 87070; 87077; 87186; 87205; 87641; 96365; 97162; 97166; 97530; 99284; 99285; J7030; J7040; J7050; J7120; Q9967; A4216; J0295

== ENCOUNTER 2020-10-28 13:00 | Outpatient (RCR) | payer MEDICARE, OTHER, SELFPAY ==
[2020-09-09 08:53] VITALS: BMI 33.8
[2020-09-17 06:54] VITALS: BMI 34.7
[2020-09-29 00:34] VITALS: BP 120/70; BP 124/68
--- NOTE | 2020-10-18 10:55 | PCM.CR.ITP ---
Diagnosis Exercise - 30-day Assessment - Visit Date of Eval: 10/18/20 Session #:: 15 - Patient last attended 10/04/2020. Comments:: Patient was admitted to the hospital with other related medical issues. - Physician Prescribed Exercise Modalities: NuStep, SciFit Frequency: 3x/week for 12 weeks [36 sessions] Intensity: 60-80% of age predicted maximum heart rate reserve Current METSs:: 4.0 Target Heart Rate:: 90-114 Current RPE:: 13 Resting Blood Pressure: 106/60 Maximum Exercise Blood Pressure: 138/70 EKG Type: Persistent atrial fibrillation rare PVCs Current Physical Activity or Exercising minutes: 30-45 - Outcomes & Goals Goals:: Verbalizes understanding of THR, RPE & goal METS by session 6, Documents in home exercise log/reports 30 min aerobic 5 day/wk by DC, Demonstrates accurate pulse taking by DC - Intervention & Plan Exercise Program Goals: Instruct on personal THR & RPE, Instruct on MET level & personal MET goal, Show patient to take own pulse /validate performance until accurate, Instruct on home exercise - 30-day Reassessments 30 day Reassessments:: Progressing - Physical Activity Home Exercise Physical Activity - Home Exercise: Safe Exercise, Warm-up, Self-monitoring, Cool-Down, Home Exercise > 30 min Daily, Sitting Time <3 hours/daily - Outcomes & Goals Outcomes/Goals: Demonstrates correct Warm-up/exercise Cool-Down (S3) if = 2.5 METs, Verbalizes symptoms of exercise intolerance by Session 3 (S3), Demonstrate safe equipment use (S3) & follows exercise prescrition (6) - Intervention & Plan Plan/Intervention: Instruct warm-up & cool-down if exercising at > 2 METs, Instruct on symptoms of exercise intolerance & actions to take, Instruct & monitor on saf, Assess intial functional capacity & safety risk - 30-day Reassessments 30 day Reassessments:: Progressing Nutrition - Initial Assessment Nutrition - 30-Day Assessment - Program Goals Nutrition Program Goals: LDL <100 optimal. 100 - 129 Near optimal. 130 - 159 Borderline High. 160 - 189 High. Total Cholesterol <200 desirable. 200 - 239 Borderline High. >/= 240 High. HDL < 40 Low >/=60 High. Triglycerides <150 desirable. <199 optimal. VlDL 5 - 40. HgbA1C <7%. BMI <25 Patient has diagnosis of Hyperlipidemia (ICD E78)?: Yes - Visit Date of Assessment:: 10/18/20 Session #:: 15 - Cholesterol/Lipids Triglycerides (mg/dL): 131 - 03/21/2020 Total Cholesterol (mg/dL): 179 LDL Cholesterol (mg/dL): 82 HDL Cholesterol (mg/dL): 71 Determine presence & major risk factors that modify LDL goal: Hypertension or hypertensive medication, Low HDL cholesterol <40 mg/dL*, Family history of premature CHD in Male < 55 years: female <65 yearsFa, Age men > 45 years; women >/= 55 years Outcomes/Goals: Pt IDs own risk factors & lifestyle modifications by Session 10, Verbalizes symptoms of angina & response by session 3., Pt independently manages Intervention/Plan: Instruct on personal lipid levels & lipid goals/NCEP guidelines, Instruct on cholesterol Referral to dietitian:: No - After speaking with patient he declined services 30-day Reassessments:: Progressing - Diabetes (Other Core Measures) Diabetes Type: Not Applicable - Weight Mgt (Other Care) Not Applicable: No Height: 5 ft 10 in Weight:: 242 lb BMI: 34.7 Diagnosis Overweight/Obesity BMI> 30% ICD-10 E66: Yes Diagnosis High BMI/Morbid Obesity BMI> 35% ICD-10 Z68: Yes Outcomes/Goals: Pt sets, maintains & shows weight loss goal & trend during rehab Intervention/Plan: Instruct on ideal BMI & set weight loss goal w/patient, Assist pt to ID & incorporate diet changes for weight loss by S9, Encourage goal of using 250-300dcal per session for weight loss 30 day Reassessments:: Progressing - Healthy Eating Habits Will attend diet classes:: Yes Outcomes/Goals:: Consume diet rich in vegs,fruits,whole grain/high fiber,fish,lean meat, Limit sat/trans fats,cholesterol & added salts & sugars Intervention/Plan:: Assess current eating habits 30-day Reassessments:: Progressing Nutrition - 60-Day Assessment Nutrition - 90-Day Assessment Nutrition - Final Assessment Medical - Initial Assessment Medical- 30-Day Assessment - Visit Date of Eval: 10/18/20 Session #:: 15 - Medication Compliance Preventative Medication(s):: Aspirin, Clopidogrel/P2Y12 inhibit, Statin/lipid, Beta eitan H/O mental health issues: depression, anxiety, or addiction?: No Doesn?t believe in the benefits of treatment?: No Believes medications are unnecessary or harmful?: No Has a concern about medication side effects?: No Expresses concern over the cost of medications?: No Outcomes/Goals: Verbalizes medications,desired effect & common side effects @ DC, Pt self-reports following medication regimen, Keeps card in wallet w/medications listed by DC Interventions/plans: Instruct on medication effects & side effects, Review medication list w/patient every two weeks, Instruct importance of taking meds as ordered & assist problem solving 30-day Reassessments:: Progressing - Tobacco Use Tobacco Use: Non-smoker - Hypertension Hypertension Diagnosis:: Hypertension ICD-10 I10 Resting Blood Pressure:: 106/60 [place] [employer] Hypertension Guidelines: [place] [employer] Hypertension Guidelines. Normal BP Less than 120/80. Elevated BP 120/80. Hypertension Stage 1: BP 130-139/80-89. Hypertesnion Stage 2: BP 140 or higher/90 or higher. Hypertension Crisis: BP higher than 180/120 Peak Exercise Blood Pressure:: 138/70 Outcomes/Goals: Able to verbalize/achieve optimal blood pressure <130/80, Incorporates diet changes & exercise for blood pressure control by DC Interventions/plan: Instruct on optimal blood pressure, hypertension & medications, Instruct on effects of sodium, alcohol, stress, exercise &hypertension 30 day Reassessments:: Progressing - Tobacco Cessation Referral Smoking Cessation Referral:: No Individual Education/Counseling:: No Education Schedule Given:: Yes Medical- 60-Day Assessment Medical- 90-Day Assessment Medical - Final Assessment Psychosocial - Initial Assess Psychosocial - 30-Day Assess - VIsit Date of Eval: 10/18/20 Session #:: 15 Not Applicable: Yes - Psychosocial Test Tool Used:: PHQ-9 Questionnaire phq-9 Severity: Severity. 1-4 Minimal Depression. 5-9 Mild Depression. 10-14 Moderate Depression. 15-19 Moderately Sever Depression. 20-27 Severe Depression. Rule: - Referral to Behavioral Health PS - Interventions: Yes Attend Stress Management Classes, No Referral to Behavioral Health if PHQ-9 score >9:, No Referral to [facility], No Referral to Physician if PHQ-9 if score is 5-9: - Outcomes/Goals: See list Psychosocial Outcomes/Goals:: ID's personal stressors & 2 strategies to manage stress by discharge - Intervention/Plan: See List Interventions/Plan:: Assess stressors,coping strategies & signs of derpression on admission, Instruct/assist pt to develop coping & personal stress Mgt strategies, Instruct patient to recognize signs & symptoms of depression, Instruct patient to recog - 30-day Reassessments: 30 day Reassessments:: Progressing Psychosocial - 60-Day Assess Psychosocial - 90-Day Assess Psychosocial - Final Assessmen Patient Health Questionnaire 30-Day Re-eval Assessment 1. Little interest or pleasure in doing things: Not at all 2. Feeling down, depressed, or hopeless: Not at all 3. Trouble falling or staying asleep, or sleeping too much: Not at all 4. Feeling tired or having little energy: Several days 5. Poor appetite or overeating: Not at all 6. Feeling bad about yourself -- or that you are a failure or have let yourself or your family down: Several days 7. Trouble concentrating on things, such as reading the newspaper or watching television: Not at all 8. Moving or speaking so slowly that other people could have noticed. Or the opposite - being so fidgety or restless that you have been moving around a lot more than usual: Not at all 9. Thoughts that you would be better off , or of hurting yourself in some way: Not at all How difficult have these problems made it for you to do your work, take care of things at home, or get along with other people?: Not difficult at all Total Score: 2 Self-Efficacy 30-Day Re-eval Assessment We would like to know how confident you are in doing certain activities. Please select your confidence level for:: Select your confidence level for the following using the scale 1-10 where 1 is not at all confident and 10 is totally confident. Your score is the average of all 6 responses. Fatigue: How confident are you that you can keep the fatigue caused by your disease from interfering with the things you want to do? Select Number: 9 Physical Discomfort or Pain: How confident are you that you can keep the physical discomfort or pain of your disease from interfering with the things you want to do? Select Number: 10 Emotional Distress: How confident are you that you can keep the emotional distress caused by your disease from interfering with the things you want to do? Select Number: 10 Other Symptoms or Health Problems: How confident are you that you can keep other symptoms or health problems from interfering with the things you want to do? Select Number: 10 Different Tasks and Activities: How confident are you that you can do the different tasks and activities needed to manage your health condition so as to reduce your need to see a doctor? Select Number: 10 Medication: How confident are you that you can do things other than just taking medication to reduce how much your illness affects your everyday life? Select Number: 10 Total Score:: 9 Nutrition Survey
[2020-10-18 11:04] VITALS: BP 106/60; BP 138/70; BMI 34.7
== END 2020-10-29 23:59 ==
LOC: CR 13:00
PROVIDERS: PCP Family Medicine; Referring Provider Internal Medicine Cardiovascular Disease; Visit Provider Internal Medicine Cardiovascular Disease
DX: Z95.2 Presence of prosthetic heart valve (principal); I25.10 Atherosclerotic heart disease of native coronary artery without angina pectoris; I71.2 Thoracic aortic aneurysm, without rupture; I10 Essential (primary) hypertension; Z95.818 Presence of other cardiac implants and grafts
CPT/HCPCS: 93798

== ENCOUNTER 2020-11-27 13:00 | Outpatient (RCR) | payer MEDICARE, OTHER, SELFPAY ==
[2020-10-18 11:04] VITALS: BMI 34.7
[2020-10-30 00:37] VITALS: BP 106/60; BP 138/70; BMI 33.8
--- NOTE | 2020-11-18 09:03 | PCM.CR.ITP ---
Diagnosis Exercise - 60-day Assessment - Visit Date of Eval: 11/18/20 Session #:: 25 - Physician Prescribed Exercise Modalities: NuStep Frequency: 3x/week for 12 weeks [36 sessions] Intensity: 60-80% of age predicted maximum heart rate reserve Current METSs:: 4.0 Target Heart Rate:: 90-114 Current RPE:: 13-14 Maximum Excercise HR:: 98 Resting Blood Pressure: 100/70 Maximum Exercise Blood Pressure: 132/62 EKG Type: Persistent atrial fibrillation Current Physical Activity or Exercising minutes: 30 - Outcomes & Goals Goals:: Verbalizes understanding of THR, RPE & goal METS by session 6, Documents in home exercise log/reports 30 min aerobic 5 day/wk by DC, Demonstrates accurate pulse taking by DC - Intervention & Plan Exercise Program Goals: Instruct on personal THR & RPE, Instruct on MET level & personal MET goal, Show patient to take own pulse /validate performance until accurate, Instruct on home exercise - 30-day Reassessments 30 day Reassessments:: Not Met - Patient at maximal exercise intensity. - Physical Activity Home Exercise Physical Activity - Home Exercise: Safe Exercise, Warm-up, Self-monitoring, Cool-Down, Home Exercise > 30 min Daily, Sitting Time <3 hours/daily - Outcomes & Goals Outcomes/Goals: Demonstrates correct Warm-up/exercise Cool-Down (S3) if = 2.5 METs, Verbalizes symptoms of exercise intolerance by Session 3 (S3), Demonstrate safe equipment use (S3) & follows exercise prescrition (6) - Intervention & Plan Plan/Intervention: Instruct warm-up & cool-down if exercising at > 2 METs, Instruct on symptoms of exercise intolerance & actions to take, Instruct & monitor on saf, Assess intial functional capacity & safety risk - 30-day Reassessments 30 day Reassessments:: Progressing Nutrition - Initial Assessment Nutrition - 30-Day Assessment Nutrition - 60-Day Assessment - Program Goals Nutrition Program Goals: LDL <100 optimal. 100 - 129 Near optimal. 130 - 159 Borderline High. 160 - 189 High. Total Cholesterol <200 desirable. 200 - 239 Borderline High. >/= 240 High. HDL < 40 Low >/=60 High. Triglycerides <150 desirable. <199 optimal. VlDL 5 - 40. HgbA1C <7%. BMI <25 Patient has diagnosis of Hyperlipidemia (ICD E78)?: Yes - Visit Date of Assessment:: 11/18/20 Session #:: 25 - Cholesterol/Lipids Determine presence & major risk factors that modify LDL goal: Hypertension or hypertensive medication, Low HDL cholesterol <40 mg/dL*, Family history of premature CHD in Male < 55 years: female <65 yearsFa, Age men > 45 years; women >/= 55 years Outcomes/Goals: Pt IDs own risk factors & lifestyle modifications by Session 10, Verbalizes symptoms of angina & response by session 3., Pt independently manages Intervention/Plan: Instruct on personal lipid levels & lipid goals/NCEP guidelines, Instruct on cholesterol Referral to dietitian:: No 30-day Reassessments:: Progressing - Diabetes (Other Core Measures) Diabetes Type: Not Applicable - Weight Mgt (Other Care) Not Applicable: Yes Height: 5 ft 10 in Weight:: 234 lb BMI: 33.5 Diagnosis Overweight/Obesity BMI> 30% ICD-10 E66: Yes Diagnosis High BMI/Morbid Obesity BMI> 35% ICD-10 Z68: Yes Outcomes/Goals: Pt sets, maintains & shows weight loss goal & trend during rehab Intervention/Plan: Instruct on ideal BMI & set weight loss goal w/patient, Assist pt to ID & incorporate diet changes for weight loss by S9, Encourage goal of using 250-300dcal per session for weight loss 30 day Reassessments:: Not Met - Healthy Eating Habits Will attend diet classes:: Yes Outcomes/Goals:: Consume diet rich in vegs,fruits,whole grain/high fiber,fish,lean meat, Limit sat/trans fats,cholesterol & added salts & sugars Intervention/Plan:: Assess current eating habits 30-day Reassessments:: Progressing - Education Gave educational materials for:: Healthy eating Nutrition - 90-Day Assessment Nutrition - Final Assessment Medical - Initial Assessment Medical- 30-Day Assessment Medical- 60-Day Assessment - Visit Date of Eval: 11/18/20 Session #:: 28 - Medication Compliance Preventative Medication(s):: Aspirin, Clopidogrel/P2Y12 inhibit, Beta eitan H/O mental health issues: depression, anxiety, or addiction?: No Doesn?t believe in the benefits of treatment?: No Believes medications are unnecessary or harmful?: No Has a concern about medication side effects?: No Expresses concern over the cost of medications?: No Outcomes/Goals: Verbalizes medications,desired effect & common side effects @ DC, Pt self-reports following medication regimen, Keeps card in wallet w/medications listed by DC Interventions/plans: Instruct on medication effects & side effects, Review medication list w/patient every two weeks, Instruct importance of taking meds as ordered & assist problem solving - Hypertension Hypertension Diagnosis:: Hypertension ICD-10 I10 Resting Blood Pressure:: 150/76 [place] [employer] Hypertension Guidelines: [place] [employer] Hypertension Guidelines. Normal BP Less than 120/80. Elevated BP 120/80. Hypertension Stage 1: BP 130-139/80-89. Hypertesnion Stage 2: BP 140 or higher/90 or higher. Hypertension Crisis: BP higher than 180/120 Peak Exercise Blood Pressure:: 100/70 Outcomes/Goals: Able to verbalize/achieve optimal blood pressure <130/80, Incorporates diet changes & exercise for blood pressure control by DC Interventions/plan: Instruct on optimal blood pressure, hypertension & medications, Instruct on effects of sodium, alcohol, stress, exercise &hypertension 30 day Reassessments:: Met - Tobacco Cessation Referral Smoking Cessation Referral:: No Individual Education/Counseling:: No Education Schedule Given:: Yes Medical- 90-Day Assessment Medical - Final Assessment Psychosocial - Initial Assess Psychosocial - 30-Day Assess Psychosocial - 60-Day Assess - VIsit Date of Eval: 11/18/20 Session #:: 25 Not Applicable: Yes History of previous Mental disease:: No - Psychosocial Test Tool Used:: PHQ-9 Questionnaire phq-9 Severity: Severity. 1-4 Minimal Depression. 5-9 Mild Depression. 10-14 Moderate Depression. 15-19 Moderately Sever Depression. 20-27 Severe Depression. Rule: - Referral to Behavioral Health PS - Interventions: Yes Attend Stress Management Classes, No Referral to Behavioral Health if PHQ-9 score >9:, No Referral to [facility], No Referral to Physician if PHQ-9 if score is 5-9: - Outcomes/Goals: See list Psychosocial Outcomes/Goals:: ID's personal stressors & 2 strategies to manage stress by discharge - Intervention/Plan: See List Interventions/Plan:: Assess stressors,coping strategies & signs of derpression on admission, Instruct/assist pt to develop coping & personal stress Mgt strategies, Instruct patient to recognize signs & symptoms of depression, Instruct patient to recog - 30-day Reassessments: 30 day Reassessments:: Met Psychosocial - 90-Day Assess Psychosocial - Final Assessmen Patient Health Questionnaire 60-Day Re-eval Assessment 1. Little interest or pleasure in doing things: Not at all 2. Feeling down, depressed, or hopeless: Not at all 3. Trouble falling or staying asleep, or sleeping too much: Not at all 4. Feeling tired or having little energy: Several days 5. Poor appetite or overeating: Not at all 6. Feeling bad about yourself -- or that you are a failure or have let yourself or your family down: Several days 7. Trouble concentrating on things, such as reading the newspaper or watching television: Not at all 8. Moving or speaking so slowly that other people could have noticed. Or the opposite - being so fidgety or restless that you have been moving around a lot more than usual: Not at all 9. Thoughts that you would be better off , or of hurting yourself in some way: Not at all Total Score: 2 Self-Efficacy 60-Day Re-eval Assessment We would like to know how confident you are in doing certain activities. Please select your confidence level for:: Select your confidence level for the following using the scale 1-10 where 1 is not at all confident and 10 is totally confident. Your score is the average of all 6 responses. Fatigue: How confident are you that you can keep the fatigue caused by your disease from interfering with the things you want to do? Select Number: 9 Physical Discomfort or Pain: How confident are you that you can keep the physical discomfort or pain of your disease from interfering with the things you want to do? Select Number: 10 Emotional Distress: How confident are you that you can keep the emotional distress caused by your disease from interfering with the things you want to do? Select Number: 10 Other Symptoms or Health Problems: How confident are you that you can keep other symptoms or health problems from interfering with the things you want to do? Select Number: 10 Different Tasks and Activities: How confident are you that you can do the different tasks and activities needed to manage your health condition so as to reduce your need to see a doctor? Select Number: 10 Medication: How confident are you that you can do things other than just taking medication to reduce how much your illness affects your everyday life? Select Number: 10 Total Score:: 9 Nutrition Survey
[2020-11-18 09:38] VITALS: BP 100/70; BP 150/76; BMI 33.5
== END 2020-11-28 23:59 ==
LOC: CR 13:00
PROVIDERS: PCP Family Medicine; Referring Provider Internal Medicine Cardiovascular Disease; Visit Provider Internal Medicine Cardiovascular Disease
DX: I25.10 Atherosclerotic heart disease of native coronary artery without angina pectoris (principal); I71.2 Thoracic aortic aneurysm, without rupture; I10 Essential (primary) hypertension; Z95.818 Presence of other cardiac implants and grafts; Z95.2 Presence of prosthetic heart valve
CPT/HCPCS: 93798

== ENCOUNTER → 2020-12-09 10:17 | Outpatient (CLI) | payer MEDICARE, OTHER, SELFPAY ==
[2020-11-18 09:38] VITALS: BMI 33.5
== END ==
PROVIDERS: PCP Family Medicine; Referring Provider Internal Medicine Cardiovascular Disease; Visit Provider Internal Medicine Cardiovascular Disease
DX: I48.20 Chronic atrial fibrillation, unspecified (principal)
CPT/HCPCS: 93225; 93226

== ENCOUNTER 2020-12-13 13:00 | Outpatient (RCR) | payer MEDICARE, OTHER, SELFPAY ==
[2020-11-18 09:38] VITALS: BMI 33.5
[2020-11-29 00:28] VITALS: BP 100/70; BP 150/76; BMI 33.8
== END 2020-12-29 23:59 ==
LOC: CR 13:00
PROVIDERS: PCP Family Medicine; Referring Provider Internal Medicine Cardiovascular Disease; Visit Provider Internal Medicine Cardiovascular Disease
DX: I25.10 Atherosclerotic heart disease of native coronary artery without angina pectoris (principal); I71.2 Thoracic aortic aneurysm, without rupture; I10 Essential (primary) hypertension; Z95.818 Presence of other cardiac implants and grafts; Z95.2 Presence of prosthetic heart valve
CPT/HCPCS: 93225; 93226; 93798

== ENCOUNTER → 2021-07-16 | Outpatient (CLI) | payer MEDICARE, OTHER, SELFPAY ==
[2020-11-18 09:38] VITALS: BMI 33.5
--- NOTE | 2021-07-16 15:45 | PET_ITS ---
PROCEDURE: WHOLE BODY PET/CT SCAN, SKULL VERTEX TO FEET REASON FOR EXAM: Multiple myeloma COMPARISON EXAMINATION: CT chest 02/09/2019. TECHNIQUE: Following the intravenous administration of 14.03 mCi of F-18 FDG, multiplanar imaging acquisitions of the head, neck, chest, abdomen/pelvis to the feet, obtained at 1 hour post radiopharmaceutical administration. Interpretation is with co-registeration of similar anatomic distribution of CT. Findings: Normal and physiologic distribution of radioisotope identified in the expected intensity of the hepatic and splenic parenchyma, urinary tract and gastrointestinal structures. There is gross anatomic distribution of the intracranial contents. INDEX LESION SIZE SUV INTERPRETATION: 1. There are multiple skeletal lesions including left C2 (1 cm SUV 6.4), right scapula (1.6 cm SUV 5.5), anterior right humerus (1.5 cm 4.9), medial right clavicle (2.7 cm SUV 6.0), multiple ribs (anterior left fourth rib dominant; 3.7 cm SUV 7.4), lower sternum (2.6 cm SUV 6.3), left ilium (2.9 cm SUV 7.2), right femur (measuring up to 1.8 cm SUV 5.1), left femur (measuring up to 1. 1.2 cm SUV 3.2), right tibia (1.6 cm SUV 6.4), left tibia (1.9 cm SUV 5.6), right fibula (1.3 cm SUV 5.0), left fibula (0.9 cm SUV 3.7), left humerus (1.5 cm SUV 6.5), right humerus (1.4 cm SUV 2.1). CT portion of the exam: No pulmonary nodule or mass. There is no demonstrated pleural abnormality. Heart size is normal. Aortic valve replacement. Mitral valve calcifications. Left atrial occlusion device. Normal mediastinum. Normal hilar regions. Normal unenhanced pulmonary arteries. There is atherosclerotic calcification of the aortic arch with tortuosity and elongation of the aortic arch and descending thoracic aorta. Normal liver. Normal gallbladder and extrahepatic biliary system. Normal spleen. Normal pancreas. Normal bilateral adrenal glands. Normal right kidney. Normal left kidney. Normal visualized stomach. Normal small intestine. There are multiple colonic diverticula consistent with diverticulosis. There is non-visualization of the appendix. There is diffuse atherosclerotic calcification of the abdominal aorta, without a demonstrated aneurysm. Atherosclerosis of the lower extremity arteries. Normal inferior vena cava. Normal urinary bladder. Right knee replacement. There are multiple lytic lesions of the thoracic and lumbar vertebral bodies although do not demonstrate abnormal FDG activity. PET/PET/CT Tumor WB Subs IMPRESSION: 1. ABNORMAL EXAMINATION. Multiple lesions the axial and appendicular skeleton (as above) may criteria for viable neoplasm. Some of the lesions correlate to lytic defects while others are within the central medullary space (predominantly femurs/tibia). 2. Chronic changes, as detailed above. Electronically Signed: Kris Prado MD ([place]) at 17:58 EDT ,
== END | disposition home or self-care (01) ==
LOC: ONC 14:41
PROVIDERS: PCP Family Medicine; Referring Provider Internal Medicine Hematology & Oncology; Visit Provider Internal Medicine Hematology & Oncology
DX: C90.00 Multiple myeloma not having achieved remission (principal)
CPT/HCPCS: 78816; A9552

== ENCOUNTER 2021-10-07 10:47 | Emergency (ER) | payer MEDICARE, OTHER, SELFPAY ==
[2020-11-18 09:38] VITALS: BMI 33.5
[2021-10-07 10:48] VITALS: BP 96/57; PULSE 95; RESP 18; TEMP 37.1; O2SAT 99; BMI 33.3
--- NOTE | 2021-10-07 11:30 | RAD_ITS ---
STUDY: X-RAY - LEFT SHOULDER REASON FOR EXAM: Left shoulder pain, left shoulder injury a few days ago. TECHNIQUE: 4 view(s) of the shoulder. COMPARISON: None. FINDINGS: Normal glenohumeral articulation. There is mild acromioclavicular arthrosis with a small undersurface osteophyte of the distal clavicle. There is a minimally displaced fracture of the acromion. Normal humeral head and visualized proximal humerus. There is an ossicle at the superior acromioclavicular joint. Normal visualized pulmonary apex. RAD/Shoulder min 2 Views IMPRESSION: Acromial fracture. Mild acromioclavicular arthrosis. Electronically Signed: Freeman Rogel MD at 12:03 EDT ,
--- NOTE | 2021-10-07 11:53 | EDS_ITS ---
HPI History of Present Illness HPI Narrative: Patient presents with left shoulder pain that began 4 days ago. Patient states he was using a pair of pliers to strip a wire when he felt pain in the posterior aspect of his left shoulder. Patient states he felt a pop at that time. Patient describes the pain as aching. Patient states nothing makes it worse. Patient states it is better in certain positions. Patient denies any paresthesias or weakness. Patient denies any other injuries. Chief Complaint: Upper Extremity Injury Informant: patient Occured/Mechanism Comment: [place] a pop while pulling Onset/Context/Timing Onset: Days (4) Context: Sudden Onset Timing: Continuous Quality of Pain: Aching Location: Left shoulder Worsened by: Nothing Relieved by: Certain positions Associated Symptoms Associated Symptoms: Negative for Parasthesia, Weakness or Loss of Funtion [facility] Medical History Anemia Atherosclerotic heart disease of [place] coronary artery without angina pectoris BPH (benign prostatic hyperplasia) BPH w/o urinary obs/LUTS Cervical strain Chronic atrial fibrillation Contusion of buttock Contusion of left hip Debility Deep vein thrombosis (DVT) of right lower extremity Dehydration Edema Essential hypertension Fall Gram-negative bacteremia Hypothyroidism Multiple myeloma Non-rheumatic aortic stenosis SORIN on CPAP Pure hypercholesterolemia Strain of left hip Thoracic aortic aneurysm without rupture Thrombocytopenia UTI due to extended-spectrum beta lactamase (ESBL) producing Escherichia coli Home Medications acetaminophen 500 mg tablet 1,000 mg PO Q6H PRN PRN Pain Score 1-3/12/30/18 [Rx Last Taken Unknown] dexamethasone 4 mg tablet 20 mg PO QWEEK takes with chemo 08/16/20 [History Last Taken Unknown] levothyroxine 50 mcg tablet 50 mcg PO DAILY thyroid #90 tabs 11/15/20 [Rx Last Taken Unknown] aspirin 325 mg tablet 325 mg PO DAILY #1 TAB 12/09/20 [Rx Last Taken Unknown] cyclobenzaprine 10 mg tablet 10 mg PO TID PRN muscle spasm #30 tabs 12/18/20 [Rx Last Taken Unknown] metoprolol succinate 25 mg tablet,extended release 24 hr 25 mg PO DAILY #30 tabs 12/24/20 [Rx Last Taken Unknown] atorvastatin 10 mg tablet 10 mg PO QHS cholesterol #90 tabs 01/16/21 [Rx Last Taken Unknown] allopurinol 100 mg tablet 100 mg PO DAILY 08/15/21 [History Last Taken Unknown] furosemide 40 mg tablet 40 mg PO DAILY PRN Swelling 08/15/21 [History Last Taken Unknown] hydrocodone-acetaminophen 5-325mg 5mg-325mg 1 tab PO Q6H PRN PRN Pain 3 days #10 TABLETS 10/07/21 [Rx Last Taken Unknown] Allergy/AdvReac Type Severity Reaction Status Date / Time adhesive tape AdvReac Other Verified 10/07/21 10:50 levofloxacin [From Levaquin] AdvReac PT UNSURE Verified 10/07/21 10:50 OF REACTION Family History Father Heart disease Mother Heart disease CVA (cerebral vascular accident) Brother CAD (coronary artery disease) Surgical History History of left heart catheterization (LHC) (~04/24/20) History of total right knee replacement (TKR) 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) Social History Smoking Status: Former smoker alcohol intake: current substance use type: does not use caffeine: No ROS ROS ED Constitutional Constitutional ED: Denies chills or fever(s) Eyes Eyes: Denies blurry vision or change in vision ENT ENT ED: Denies rhinorrhea or sore throat Cardiovascular Cardiovascular: Denies chest pain or palpitations Respiratory/Chest Respiratory/Chest: Denies cough or dyspnea Gastrointestinal Gastrointestinal: Denies nausea or vomiting Genitourinary Genitourinary ED: Denies dysuria or hematuria Musculoskeletal Musculoskeletal: Reports back pain; Denies neck pain Integumentary Denies abscess or rash Neurologic Neurologic: Denies headache(s) or weakness Allergic/Immunologic Allergic/Immunologic ED: Denies mouth swelling or urticaria EXAM Physical Exam Const Vital Signs: 10/07/21 10:48 Temperature 98.7 F Temperature Source Temporal Pulse Rate 95 Respiratory Rate 18 Blood Pressure 96/57 L Blood Pressure Mean 70 Pulse Ox 99 Oxygen Delivery Method Room Air Positive well nourished and well developed General Appearance ED: well developed and NAD HEENT Reports moist mucous membranes Neck full ROM Extremity Extremity Narrative: There is tenderness over the superior and posterior aspect of the left shoulder. There is no bony crepitance or step-off. There is no edema or ecchymosis. Range of motion was slightly limited in all motions of the left shoulder secondary to pain. There is no tenderness over the proximal humerus. There is no tenderness along the clavicle. Radial pulses are equal bilaterally. Sensation was intact to light touch in the radial, median, ulnar, and axillary areas. Strength is 5/5 in the radial, median, and ulnar areas. Neuro oriented x3, CN's II-XII intact bilaterally, moves all extremities, no focal motor deficits and no sensory deficits noted Sensorium / Orientation: alert Motor Exam: strength 5/5 throughout Psych mental status grossly normal MDM MDM MDM Narrative Medical decision making narrative: X-rays of the left shoulder were obtained. There are 4 views. On my interpretation, there is a nondisplaced fracture of the acromion process. There is no soft tissue swelling noted. Radiologist also interpreted the x-rays and agrees. Patient was given a sling and swath. Patient was given a prescription for a short course of [place] for pain. Patient was instructed to use ice to the area. Patient was instructed to follow-up with his primary care physician in 5 to 7 days. Patient and spouse understood and were agreeable with the plan. All questions were answered. Discharge Plan Triage Chief Complaint: Upper Extremity Injury ED Provider: Luis F Day Dx/Rx/DC Orders Clinical Impression: Acromial fracture Instructions: ED Fracture, Shoulder, ED Sling and Swathe Prescriptions: New hydrocodone-acetaminophen [hydrocodone-acetaminophen] 5-325 mg tablet 1 tab PO Q6H PRN PRN (Reason: Pain) 3 Days Qty: 10 0RF No Action dexamethasone 4 mg tablet 20 mg PO QWEEK Rx Instructions: next dose is saturday 10/14 aspirin 325 mg tablet 325 mg PO DAILY Qty: 1 0RF cyclobenzaprine 10 mg tablet 10 mg PO TID PRN (Reason: muscle spasm) Qty: 30 0RF furosemide 40 mg tablet 40 mg PO DAILY PRN (Reason: Swelling) acetaminophen 500 MG tablet 1,000 mg PO Q6H PRN PRN (Reason: Pain Score 1-3/10) 0RF levothyroxine 50 mcg tablet 50 mcg PO DAILY Qty: 90 3RF metoprolol succinate 25 mg tablet extended release 24 hr 25 mg PO DAILY Qty: 30 12RF atorvastatin 10 mg tablet 10 mg PO QHS Qty: 90 3RF allopurinol 100 mg tablet 100 mg PO DAILY Primary Care Provider: Tiburcio Leger Referrals: Tiburcio Leger MD [Primary Care Provider] - 5-7 Days Jerry Salinas MD [Med Staff - Active Staff] - 5-7 Days Disposition Disposition: Home, Self Care
[2021-10-07] MEDS: HYDROcodone Bitartrate/Apap 5/325 Tablet PO (12:49)
== END 2021-10-07 13:00 | disposition home or self-care (01) ==
LOC: ED 12:01
PROVIDERS: Emergency Provider Emergency Medicine; PCP Family Medicine; Visit Provider Emergency Medicine
DX: S42.125A Nondisplaced fracture of acromial process, left shoulder, initial encounter for closed fracture (principal); I10 Essential (primary) hypertension; I25.10 Atherosclerotic heart disease of native coronary artery without angina pectoris; E78.00 Pure hypercholesterolemia, unspecified; X50.3XXA Overexertion from repetitive movements, initial encounter; Y99.0 Civilian activity done for income or pay; Z79.82 Long term (current) use of aspirin; Z79.899 Other long term (current) drug therapy; Z87.891 Personal history of nicotine dependence
CPT/HCPCS: 73030; 99283